=== PATIENT | female | born 1970 | race Caucasian/White ===

== ENCOUNTER 2020-08-27 12:25 | Outpatient (REF) | payer MEDICAID, SELFPAY | END 2020-08-27 12:26 | disposition home or self-care (01) | LOC: HO.LAB 12:25 | PROVIDERS: Visit Provider Internal Medicine | DX: Z20.828 Contact with and (suspected) exposure to other viral communicable diseases (principal) | CPT/HCPCS: 87635 ==

== ENCOUNTER 2020-10-30 12:50 | Outpatient (REF) | payer MEDICAID, SELFPAY ==
--- NOTE | 2020-10-30 | MM_ITS ---
EXAMINATION: MM DIAGNOSTIC DIGITAL BREAST TOMOSYNTHESIS, BILATERAL CLINICAL INFORMATION: Due for yearly. One-year follow-up small group of probable benign calcifications posterior upper outer right breast. History left benign breast biopsy 2011, fibroadenoma. The lifetime risk of breast cancer based on the Tyrer-Cuzick Model is 12%. COMPARISON: Mammography: 04/03/2020, 10/03/2019 (BI-RADS 3, new group), 03/28/2019, 09/27/2018, 03/23/2018, 09/21/2017, 09/14/2017 TECHNIQUE: Digital breast tomosynthesis is performed in both the craniocaudal and mediolateral oblique views along with computer-aided detection (CAD). Synthesized 2D images are generated from the tomosynthesis. Additional exaggerated right CC view is performed along with magnification right CC and magnification right ML views. FINDINGS: There are scattered areas of fibroglandular density (ACR BI-RADS breast composition Category b). Parenchymal pattern is similar to prior exams. There is a chronic macrolobulated mass upper outer left breast with central biopsy clip marker and benign coarse calcification consistent with the known fibroadenoma. Neither breast shows interval mass or architectural abnormality or interval abnormal calcifications. The right breast has scattered calcifications central and anterior upper outer quadrant similar to prior study. The small group of calcifications posterior upper outer right breast for follow-up are stable. They will be reassessed again at next bilateral annual mammography to conclude surveillance, due in 12 months. Results are provided to the patient at time of visit by the technologist. MM/MM tomosynthesis diagnostic BI IMPRESSION: 1. There are no significant changes from prior study. 2. Right breast calcifications for follow up are stable and benign appearing. ASSESSMENT: BI-RADS 3: Probably Benign RECOMMENDATION: Diagnostic mammography at time of next annual exam, due in 12 months. This patient's information was entered into a reminder system with a target due date for their next mammogram.
== END 2020-10-30 12:51 | disposition home or self-care (01) ==
LOC: HO.MAMMO 12:50
PROVIDERS: PCP Family Medicine; Visit Provider Family Medicine
DX: R92.1 Mammographic calcification found on diagnostic imaging of breast (principal)
CPT/HCPCS: 77062; 77066

== ENCOUNTER 2021-09-24 08:58 | Emergency (ER) | payer MEDICARE, MEDICAID, SELFPAY ==
--- NOTE | ~2021-09-24 | CT_ITS ---
EXAMINATION: CT ABDOMEN AND PELVIS WITH CONTRAST CLINICAL INFORMATION: Upper abdominal pain with nausea. COMPARISON: CT abdomen and pelvis noncontrast 06/02/2018, ultrasound abdomen 09/24/2021; 3-D digital breast tomosynthesis 10/30/2020. TECHNIQUE: Multidetector volumetric images were obtained from the superior aspect of the liver through the pubic symphysis following administration 85 mL of Omnipaque 350 intravenous contrast. Sagittal and coronal reformatted images were obtained on the technologist's workstation. Oral contrast: No This CT examination was performed using dose optimization techniques as appropriate, variously including the following: *Automated exposure control *Adjustment of mA and/or kV according to patient size (this includes techniques or standardized protocols for targeted exams where dose is matched to indication/reason for exam; i.e. extremities or head) *Use of iterative reconstruction technique DLP: 661 mGy-cm FINDINGS: LUNG BASES: The visualized lung bases are unremarkable. There is a known fibroadenoma left breast with biopsy clip marker, similar to prior mammography. LIVER, GALLBLADDER, AND BILIARY TREE: The liver is normal in size, shape, and attenuation. No focal hepatic lesion or biliary ductal dilatation is present. The gallbladder is unremarkable with no evidence of radiopaque gallstones, gallbladder wall thickening, or obvious pericholecystic inflammatory changes. PANCREAS: Unremarkable. SPLEEN: Unremarkable. ADRENAL GLANDS: Right adrenal normal. There is a stable solid nodule left adrenal under 1 cm (31 HU attenuation on prior noncontrast CT and 85 HU on current exam with contrast). No additional imaging follow-up recommended. KIDNEYS AND URETERS: The kidneys are normal in size and enhance symmetrically. There is no hydronephrosis, hydroureter, calculi, or perinephric stranding. There is incidental 0.8 cm cyst medial mid right kidney. No additional imaging follow-up required. BLADDER: Unremarkable. GASTROINTESTINAL TRACT: There is no bowel obstruction or focal inflammatory changes in the bowel or mesentery. The appendix is normal. There are fluid-filled loops of small bowel of normal caliber. No pneumatosis or free air. No ascites or fluid collection. ABDOMINAL WALL: Small fat-containing umbilical hernia under 3 cm. LYMPH NODES: No lymphadenopathy. VASCULAR: Unremarkable. PELVIC VISCERA: Unremarkable. OSSEOUS STRUCTURES: Unremarkable. CT/CT abdomen pelvis w con IMPRESSION: 1. Scattered fluid-filled small bowel of normal caliber. No wall thickening or obstruction. Normal appendix. 2. No cholelithiasis or ductal dilatation. No hydronephrosis or perinephric stranding. 3. No hydronephrosis or calculi.
--- NOTE | ~2021-09-24 | US_ITS ---
EXAMINATION: US ABDOMEN LIMITED CLINICAL INFORMATION: Epigastric pain with nausea. COMPARISON: None TECHNIQUE: Real-time imaging of the right upper quadrant abdominal viscera. Case discussed with research and development researcher. FINDINGS: PANCREAS: Portions of the pancreatic head and neck which are visualized appear normal in caliber. There is no pancreatic ductal distention or retroperitoneal effusion in the visualized area. The body and tail are obscured by bowel gas and not imaged. LIVER: The liver is normal in size and smooth in contour. The parenchyma is homogeneous, perhaps slightly increased which may suggest mild hepatic steatosis. There is no focal hepatic parenchymal lesion. No intrahepatic biliary ductal dilatation. Color Doppler shows portal flow towards the liver. GALLBLADDER: There is no gallstone or sludge or gallbladder wall thickening. On one image, there is suggestion of a tiny polyp proximal gallbladder near the neck under 4 mm, but finding could not be validated on additional imaging. There is no pericholecystic fluid. Negative sonographic Sears's sign. COMMON BILE DUCT: Normal in caliber measuring 0.3 cm in diameter. RIGHT KIDNEY: Normal. No hydronephrosis. No renal calculi or focal parenchymal lesions. The kidney measures 11.0 cm in maximum dimension. FREE FLUID: None. US/US abdomen limited IMPRESSION: 1. Suspect tiny gallbladder polyp. No stone, gallbladder wall thickening, or ductal dilatation. 2. No right hydronephrosis.
[2021-09-24 09:02] VITALS: BP 153/71; PULSE 60; RESP 18; TEMP 36.6; O2SAT 99; BMI 27.1
[2021-09-24 09:33] LABS: Hematocrit 36.6 % (37.0-47.0); Hemoglobin 12.1 g/dl (12.0-16.0); Mean Corpuscular HGB Conc 33.1 g/dl (31.0-35.0); Mean Corpuscular Hemoglobin 31.7 pg (27.0-33.0); Mean Corpuscular Volume 95.8 fL (80.0-98.0); Mean Platelet Volume 9.6 fL (9.4-12.3); Platelet Count 297 X10*3/uL (160-400); Red Blood Count 3.82 X10*6/uL (4.20-5.50); Red Cell Distribution Width 12.1 % (11.0-16.0); White Blood Count 10.6 X10*3/uL (4.8-10.8)
[2021-09-24] MEDS: ondansetron HCL 4 MG/2 ML VIAL IVPUSH (09:37)
[2021-09-24] MEDS: Ketorolac Tromethamine 15 MG/ML VIAL 30 MG IVPUSH (09:48)
[2021-09-24 09:52] LABS: Alanine Aminotransferase 55 U/L (0-31); Albumin Level 4.2 g/dL (3.5-5.0); Alkaline Phosphatase 78 U/L (39-117); Anion Gap 12 (12-20); Aspartate Amino Transferase 32 U/L (5-31); Bilirubin Direct 0.2 mg/dL (0.0-0.5); Bilirubin Total 0.3 mg/dL (0.0-1.0); Blood Urea Nitrogen 19 mg/dL (9-16); Calcium 8.9 mg/dL (8.4-10.2); Carbon Dioxide 21 mmol/L (22-29); Chloride 109 mmol/L (96-108); Creatinine Clr Calc Pharmacy 99.4; Estimated Glomerular Filt Rate > 60; Glucose Random 114 mg/dL (60-115); Lipase 74 U/L (8-78); Potassium 4.2 mmol/L (3.3-5.1); Sodium 138 mmol/L (135-145); Total Protein 7.3 g/dL (6.5-8.0)
--- NOTE | 2021-09-24 10:07 | ED.ABDPAIN ---
HPI - Abdominal Pain General Chief Complaint: Abdominal Pain Stated Complaint: abd pain Time Seen by Provider: 09/24/21 09:13 Source: patient Mode of arrival: ambulatory Limitations: language barrier (Wolof-speaking) History of Present Illness HPI narrative: 51-year-old female with a past medical history of hypertension presenting to the ED with complaints of epigastric abdominal pain with associated nausea since this morning at 06:00. Reports that she has had this pain in the past although it has subsided on its own. She denies any fevers, chills, chest pain or shortness of breath, rashes, vomiting, radiation of the abdominal pain, back pain, dysuria, hematuria, abnormal vaginal discharge, recent travel, sick contacts, possible bad food exposure, foreign travel, recent antibiotic use, recent procedure/surgery, recent injury or any other symptoms complaints or concerns at this time. MD elicited complaint: abdominal pain Pertinent past history: none Onset (ago): hour(s) (Prior to arrival) Pain Consistency: constant Location: epigastric Severity: moderate Quality: aching Radiation: none Migration to: no migration Exacerbating factors: other (Palpation) Relieving factors: nothing Associated symptoms: nausea Related Data Previous Rx's Medication Instructions Recorded naproxen 500 mg tablet 500 mg PO BID PRN #14 tab 09/24/21 ondansetron HCl 4 mg tablet 4 mg PO Q8H PRN #14 tab 09/24/21 (Zofran) Allergies Allergy/AdvReac Type Severity Reaction Status Date / Time No Known Allergies Allergy Unverified 07/18/20 15:49 none Allergy Unknown Uncoded 03/22/19 00:00 Review of Systems Review of Systems Constitutional : No Weight loss, No Fever, No Chills, No Night Sweats, No Fatigue, NoMalaise ENT/Mouth: No ear pain, No sore throat, No Difficulty swallowing Cardiovascular : No Chest Pain, No SOB, No Dyspnea on Exertion, No Orthopnea, NoEdema, No Palpitations Respiratory : No Cough, No Sputum, No Wheezing, No Dyspnea Gastrointestinal : + Nausea, No Vomiting, + abdominal pain, No Diarrhea, No blood streaked emesis, No coffee-ground emesis, No gross hematemesis, No blood streak stool, No gross hematochezia, No Melena Genitourinary : No irregular bleeding, No Dysuria, No Urinary Frequency, No Hematuria,No Urinary Incontinence, No Urgency, No Flank Pain Musculoskeletal : No joint pain, No Myalgias, No Joint Swelling Skin : No Skin Lesions, No rash Neuro : No Weakness, No Numbness, No Paresthesias, No Loss of Consciousness, NoDizziness, No Headache Psych : No Social Issues, Heme/Lymph: No Bruising, No Bleeding,No Lymphadenopathy Endocrine : No Polyuria, No Polydipsia, No Temperature Intolerance Yes all other systems are reviewed and are negative Physical Exam Vital Signs: Vital Signs: Last Vital Signs Temp 97.8 F 09/24/21 09:02 Pulse 60 09/24/21 09:02 Resp 18 09/24/21 09:02 BP 153/71 H 09/24/21 09:02 Pulse Ox 99 09/24/21 09:02 Body Mass Index 27.1 vital signs have been reviewed as normal and appeared to be correct. Blood pressure 153/71 Heart rate normal. Respiration rate normal. Temperature normal. Oxygen saturation normal. Appearance: Alert. Oriented X3. No acute distress. Head: Normal external exam. Normocephalic. Eyes: PERRLA. EOMI. Conjunctiva and sclera normal. Eyelids normal. ENT: Pharynx normal. Uvula midline. Moist mucous membranes. Neck: Normal inspection. Neck supple. FROM. No adenopathy. No meningeal signs. CVS: Normal heart rate and rhythm. Heart sound normal. No murmurs noted. Pulses normal throughout. Respiratory: No respiratory distress. Painless inspiration. Breath sounds normal. No wheezes/rales/rhonchi noted. Chest nontender. No accessory muscle usage noted or decreased air movement noted. Abdomen: Soft and tenderness palpation to epigastric area with guarding. Nondistended. No rigidity. Bowel sounds normal in all 4 quadrants. No distention noted. No organomegaly noted. No visible injury noted. No rebound tenderness. Negative Rovsing sign. Negative obturator's sign. Negative psoas sign. Negative Sears sign. Back: No CVA tenderness. Full range of motion noted. Skin: Skin warm and dry. Normal skin color. Normal skin turgor. No rashes/lesions/lacerations noted. Extremities: Extremities exhibit normal range of motion. Extremities nontender. Neuro: Oriented X 3. No motor deficit. No sensory deficit. Reflexes normal. Normal steady gait. Course Course Course Narrative: 9:30am - 51-year-old female with a past medical history of hypertension presenting to the ED with complaints of epigastric abdominal pain with associated nausea since this morning at 06:00. Reports that she has had this pain in the past although it has subsided on its own. Plan: Labs, UA, abdominal ultrasound of the epigastric area. Provide 4 mg of Zofran and 30 mg of Toradol and re-evaluate. Reevaluation(s) Reevaluation #1: - labs obtained and mild elevation in AST/ALT at 32/55 otherwise all other labs are within normal limits. Abdominal ultrasound revealed a tiny gallbladder polyp otherwise no other acute processes. CT scan abdomen pelvis revealed chronic changes no acute processes. Therefore at this time will DC home with symptomatic treatment instructions return if any new or worsening symptoms to follow up with primary care provider. Patient understands agrees with this plan. Time: 12:46 MDM - Abdominal Pain Medical Records Attestation: I reviewed the patient's medical records. Lab Data Attestation: I reviewed the patient's lab results. Result diagrams: 09/24/21 09:25 09/24/21 09:25 Labs: Lab Results 09/24/21 09/24/21 Range/Units 09:25 09:25 WBC 10.6 (4.8-10.8) X10*3/uL RBC 3.82 L (4.20-5.50) X10*6/uL Hgb 12.1 (12.0-16.0) g/dl Hct 36.6 L (37.0-47.0) % MCV 95.8 (80.0-98.0) fL MCH 31.7 (27.0-33.0) pg MCHC 33.1 (31.0-35.0) g/dl RDW 12.1 (11.0-16.0) % Plt Count 297 (160-400) X10*3/uL MPV 9.6 (9.4-12.3) fL Absolute Nucleated RBC 0.000 (0.0-0.012) X10*3/uL Nucleated RBC % (auto) 0.0 (0.0-0.2) /100WBC Sodium 138 (135-145) mmol/L Potassium 4.2 (3.3-5.1) mmol/L Chloride 109 H (96-108) mmol/L Carbon Dioxide 21 L (22-29) mmol/L Anion Gap 12 (12-20) BUN 19 H (9-16) mg/dL Creatinine 0.64 (0.5-1.4) mg/dL Estim Creat Clear Calc 99.4 Estimated GFR > 60 Random Glucose 114 (60-115) mg/dL Calcium 8.9 (8.4-10.2) mg/dL Total Bilirubin 0.3 (0.0-1.0) mg/dL Direct Bilirubin 0.2 (0.0-0.5) mg/dL AST 32 H (5-31) U/L ALT 55 H (0-31) U/L Alkaline Phosphatase 78 (39-117) U/L Total Creatine Kinase 110 (26-140) U/L Total Protein 7.3 (6.5-8.0) g/dL Albumin 4.2 (3.5-5.0) g/dL Lipase 74 (8-78) U/L Imaging Data Abdominal ultrasound: Attestation: I personally reviewed and interpreted this imaging study as follows: Radiologist's impression: FINDINGS: PANCREAS: Portions of the pancreatic head and neck which are visualized appear normal in caliber. There is no pancreatic ductal distention or retroperitoneal effusion in the visualized area. The body and tail are obscured by bowel gas and not imaged. LIVER: The liver is normal in size and smooth in contour. The parenchyma is homogeneous, perhaps slightly increased which may suggest mild hepatic steatosis. There is no focal hepatic parenchymal lesion. No intrahepatic biliary ductal dilatation. Color Doppler shows portal flow towards the liver. GALLBLADDER: There is no gallstone or sludge or gallbladder wall thickening. On one image, there is suggestion of a tiny polyp proximal gallbladder near the neck under 4 mm, but finding could not be validated on additional imaging. There is no pericholecystic fluid. Negative sonographic Sears's sign. COMMON BILE DUCT: Normal in caliber measuring 0.3 cm in diameter. RIGHT KIDNEY: Normal. No hydronephrosis. No renal calculi or focal parenchymal lesions. The kidney measures 11.0 cm in maximum dimension. FREE FLUID: None. US/US abdomen limited IMPRESSION: ? 1. Suspect tiny gallbladder polyp. No stone, gallbladder wall thickening, or ductal dilatation. 2. No right hydronephrosis. CT scan abdomen pelvis with IV contrast: Attestation: I personally reviewed and interpreted this imaging study as follows: Radiologist's impression: FINDINGS: LUNG BASES: The visualized lung bases are unremarkable. There is a known fibroadenoma left breast with biopsy clip marker, similar to prior mammography. LIVER, GALLBLADDER, AND BILIARY TREE: The liver is normal in size, shape, and attenuation. No focal hepatic lesion or biliary ductal dilatation is present. The gallbladder is unremarkable with no evidence of radiopaque gallstones, gallbladder wall thickening, or obvious pericholecystic inflammatory changes.? PANCREAS: Unremarkable.? SPLEEN: Unremarkable.? ADRENAL GLANDS: Right adrenal normal. There is a stable solid nodule left adrenal under 1 cm (31 HU attenuation on prior noncontrast CT and 85 HU on current exam with contrast). No additional imaging follow-up recommended. KIDNEYS AND URETERS: The kidneys are normal in size and enhance symmetrically. There is no hydronephrosis, hydroureter, calculi, or perinephric stranding. There is incidental 0.8 cm cyst medial mid right kidney. No additional imaging follow-up required.? BLADDER: Unremarkable.? GASTROINTESTINAL TRACT: There is no bowel obstruction or focal inflammatory changes in the bowel or mesentery. The appendix is normal. There are fluid-filled loops of small bowel of normal caliber. No pneumatosis or free air. No ascites or fluid collection.? ABDOMINAL WALL: Small fat-containing umbilical hernia under 3 cm.? LYMPH NODES: No lymphadenopathy. VASCULAR: Unremarkable. PELVIC VISCERA: Unremarkable.? OSSEOUS STRUCTURES: Unremarkable.? CT/CT abdomen pelvis w con IMPRESSION: ? 1. Scattered fluid-filled small bowel of normal caliber. No wall thickening or obstruction. Normal appendix. 2. No cholelithiasis or ductal dilatation. No hydronephrosis or perinephric stranding.? 3. No hydronephrosis or calculi. Discharge Plan Discharge Clinical Impression: Abdominal pain Patient Disposition: Home, Self-Care Instructions: Abdominal Pain (ED) Prescriptions: New naproxen 500 mg tablet 500 mg PO BID PRN (Reason: pain) Qty: 14 RF: 0 ondansetron HCl [Zofran] 4 mg tablet 4 mg PO Q8H PRN (Reason: nausea and vomiting) Qty: 14 RF: 0 Referrals: Alvina Mccartney MD [Primary Care Provider] - 2 days Print Language: Croatian PENDING SALE TO [facility] Past Medical History Attestation statement: The following information was validated with the patient. Medical History HTN (hypertension) Surgical History History of hysterectomy Family History Family History Father Diabetes Arthritis Hypertension Hypercholesteremia Mother Diabetes Hypertension Arthritis Son Asthma Son Asthma Heart problem Social History Social History Advance Directives: No Patient : No
[2021-09-24] MEDS: 0.9 % Sodium Chloride 1,000 ML 999 ML IVCONT (11:28)
[2021-09-24] MEDS: iohexoL 350 MG/ML 100 ML INFUS..BTL IV (11:39)
[2021-09-24 12:54] VITALS: BP 130/78; PULSE 60; RESP 16; O2SAT 97
== END 2021-09-24 13:03 | disposition home or self-care (01) ==
PROVIDERS: Physician Assistant Medical; Emergency Provider Emergency Medicine; PCP Family Medicine
DX: R10.13 Epigastric pain (principal); R11.0 Nausea; I10 Essential (primary) hypertension
CPT/HCPCS: 36415; 74177; 76705; 80048; 80076; 82550; 83690; 85027; 96361; 96374; 96375; 99284; J1885; J2405; Q9967

== ENCOUNTER 2021-11-06 14:54 | Outpatient (REF) | payer MEDICARE, MEDICAID, SELFPAY ==
--- NOTE | ~2021-11-06 | MM_ITS ---
EXAMINATION: MM DIAGNOSTIC DIGITAL BREAST TOMOSYNTHESIS, BILATERAL CLINICAL INFORMATION: Due for yearly. Follow-up small group probable benign calcifications posterior upper outer right breast. Prior history benign left breast biopsy 2012, fibroadenoma. The lifetime risk of breast cancer based on the Tyrer-Cuzick Model is 8%. COMPARISON: Mammography: 10/30/2020, 04/20/2020, 10/03/2019 (new group, BI-RADS 3), 03/28/2019, 09/27/2018, 03/23/2018 TECHNIQUE: Digital breast tomosynthesis is performed in both the craniocaudal and mediolateral oblique views along with computer-aided detection (CAD). Synthesized 2D images are generated from the tomosynthesis. Additional views are obtained: Exaggerated right CC, magnification right CC, magnification right ML. FINDINGS: There are scattered areas of fibroglandular density (ACR BI-RADS breast composition Category b). Left breast fibroadenoma with central biopsy clip marker again seen mid 3:00 position. There are increased benign coarse calcifications predominantly peripherally oriented within the known fibroadenoma. Scattered calcifications right breast are stable. There are no increasing calcifications or interval pleomorphic types. Calcifications are now considered to be benign. Neither breast shows interval mass or architectural abnormality or developing density. The axilla and skin contours are unremarkable. Results are provided to the patient at time of visit by the technologist. MM/MM tomosynthesis diagnostic BI IMPRESSION: No significant changes from prior exams. ASSESSMENT: BI-RADS 2: Benign RECOMMENDATION: Routine annual mammography screening. This patient's information was entered into a reminder system with a target due date for their next mammogram.
== END 2021-11-06 14:55 | disposition home or self-care (01) ==
LOC: HO.MAMMO 14:54
PROVIDERS: Visit Provider Family Medicine
DX: R92.1 Mammographic calcification found on diagnostic imaging of breast (principal)
CPT/HCPCS: 77062; 77066

== ENCOUNTER → 2021-12-01 10:08 | Outpatient (BNVA) | payer MEDICARE, MEDICAID, SELFPAY | PROVIDERS: PCP Family Medicine; Referring Provider Family Medicine; Visit Provider Internal Medicine Gastroenterology | DX: K82.4 Cholesterolosis of gallbladder (principal); K58.9 Irritable bowel syndrome, unspecified | CPT/HCPCS: 99212 ==

== ENCOUNTER 2021-12-29 09:50 | Outpatient (REF) | payer MEDICARE, MEDICAID, SELFPAY ==
--- NOTE | ~2021-12-29 | US_ITS ---
EXAMINATION: US ABDOMEN COMPLETE CLINICAL INFORMATION: Cholesterolosis of the gallbladder. COMPARISON: Ultrasound abdomen limited 09/24/2021. CT abdomen and pelvis with contrast 09/24/2021. TECHNIQUE: Real-time imaging of the abdominal viscera. FINDINGS: PANCREAS: The visualized pancreas is normal in size and contour and echogenicity. No pancreatic ductal distention. Distal body and tail obscured by bowel gas and not completely imaged. ABDOMINAL AORTA: The proximal, mid, and distal segments are normal in caliber. INFERIOR VENA CAVA: Visualized portions are normal. LIVER: The liver is normal in size and smooth in contour. There is no focal hepatic parenchymal lesion or intrahepatic ductal dilatation. The parenchyma areas homogeneous, or borderline increased in echogenicity which may suggest mild hepatic steatosis. Color Doppler shows portal flow towards the liver. GALLBLADDER: There are at least 2 gallbladder polyps, the larger measures 4 mm in size. There is no gallbladder dilatation or wall thickening, dependent sludge, or pericholecystic inflammatory changes. Negative sonographic Sears's sign. COMMON BILE DUCT: Normal in caliber measuring 0.3 cm in diameter. RIGHT KIDNEY: Normal. No hydronephrosis. No renal calculi or focal parenchymal lesions. The kidney measures 11.4 cm in maximum dimension. LEFT KIDNEY: Normal. No hydronephrosis. No renal calculi or focal parenchymal lesions. The kidney measures 10.3 cm in maximum dimension. SPLEEN: Normal. The spleen measures 7.4 cm in maximum dimension. FREE FLUID: None. US/US abdomen complete IMPRESSION: 1. Gallbladder: At least 2 small polyps, the largest 0.4 cm. 2. No gallstone, dependent sludge, gallbladder wall thickening, or ductal dilatation.
== END 2021-12-29 09:51 | disposition home or self-care (01) ==
LOC: HO.US 09:50
PROVIDERS: PCP Family Medicine; Visit Provider Internal Medicine Gastroenterology
DX: K82.4 Cholesterolosis of gallbladder (principal)
CPT/HCPCS: 76700

== ENCOUNTER 2022-04-03 09:44 | Outpatient (REF) | payer OTHER, SELFPAY ==
[2022-04-04 15:19] LABS: H Pylori Breath Test Negative (Negative)
== END 2022-04-03 09:45 | disposition home or self-care (01) ==
LOC: HO.LNP 09:44
PROVIDERS: PCP Family Medicine; Referring Provider Family Medicine; Visit Provider Internal Medicine Gastroenterology
DX: Z01.818 Encounter for other preprocedural examination (principal); R10.13 Epigastric pain; K59.00 Constipation, unspecified
CPT/HCPCS: 83013; 99212

== ENCOUNTER 2022-10-01 15:39 | Emergency (ER) | payer OTHER, MEDICAID, SELFPAY ==
--- NOTE | ~2022-10-01 | CT_ITS ---
EXAMINATION: NONCONTRAST HEAD CT NONCONTRAST MAXILLOFACIAL CT NONCONTRAST CERVICAL SPINE CT INDICATION INFORMATION: Head and facial trauma, syncope. COMPARISON: No similar priors. TECHNIQUE: Separate noncontrast CT examinations of the head, maxillofacial bones, and cervical spine were performed. Coronal and sagittal images were created for each examination at the technologist workstation. This CT examination was performed using dose optimization techniques as appropriate, variously including the following: *Automated exposure control *Adjustment of mA and/or kV according to patient size (this includes techniques or standardized protocols for targeted exams where dose is matched to indication/reason for exam; i.e. extremities or head) *Use of iterative reconstruction technique DLP: 728 mGy-cm FINDINGS: Head: There is no evidence of acute intracranial hemorrhage or territorial infarction. No abnormal mass effect or midline shift is seen. Rubio to white matter differentiation is well preserved. No extra-axial fluid collections are identified. No hydrocephalus. No significant volume loss. There is no abnormal attenuation within the brain parenchyma. No acute soft tissue abnormality. No calvarial fracture. The mastoid air cells are well aerated. Maxillofacial: No acute maxillofacial fractures are seen. Small mucous retention cyst in the right maxillary sinus. No air-fluid levels. The mastoids and middle ear cavities are clear. The nasal septum is severe to the right. The mandibular heads are well-seated in the condylar fossa. The orbits demonstrate a normal appearance bilaterally. The globes are intact, and there are no suspicious findings to suggest retrobulbar hemorrhage. Cervical spine: Straightening of the cervical lordosis with otherwise maintained anatomic alignment. The atlantoaxial and atlantooccipital articulations are intact. Vertebral body heights are maintained. There is multilevel intervertebral disc space narrowing with endplate osteophyte formation and facet arthropathy. Prominent anterior osteophyte at the level of C5-C6. No evidence of acute fracture. No prevertebral soft tissue swelling. Visualized portions of the lung apices are unremarkable. The thyroid gland is unremarkable. CT/CT cervical spine wo IV con IMPRESSION: 1. No acute intracranial abnormalities. 2. No acute maxillofacial fractures. 3. No acute cervical fractures or malalignment.
--- NOTE | ~2022-10-01 | XR_ITS ---
EXAMINATION: XR CHEST CLINICAL INFORMATION: Syncope COMPARISON: Chest x-ray 06/17/2019 TECHNIQUE: Frontal view of the chest was obtained. FINDINGS: The lungs are clear. No airspace consolidation, pleural effusion, or pneumothorax. The cardiomediastinal silhouette is within normal limits. No acute osseous injury. XR/XR chest 1V IMPRESSION: No acute pulmonary process.
[2022-10-01 16:02] VITALS: BP 124/72; BP 144/89; PULSE 76; PULSE 80; RESP 20; TEMP 37.2; O2SAT 94; O2SAT 98; BMI 26.9
--- NOTE | 2022-10-01 16:08 | ED.SYNCOPE ---
HPI - Syncope General Chief Complaint: Syncope <Mary George NP - Last Filed: 10/01/22 23:51> Stated Complaint: Syncopal Episode/Fall <Mary George NP - Last Filed: 10/01/22 23:51> Time Seen by Provider: 10/01/22 16:08 <Mary George NP - Last Filed: 10/01/22 23:51> Source: patient and EMS <Mary George NP - Last Filed: 10/01/22 23:51> Mode of arrival: EMS <Mary George NP - Last Filed: 10/01/22 23:51> Limitations: language barrier <Mary George NP - Last Filed: 10/01/22 23:51> History of Present Illness HPI narrative: 52-year-old female presents via EMS for syncopal episode. Patient was standing in line [place] the post office, when she bent over she had a syncopal episode, landed on her face and has an abrasion to her left lower lip. Patient is in a C-collar, and is complaining of neck and headache. <Mary George NP - Last Filed: 10/01/22 23:51> MD complaint: loss of consciousness and felt faint <Mary George NP - Last Filed: 10/01/22 23:51> Onset (ago): hour(s) (However I have all) <Mary George NP - Last Filed: 10/01/22 23:51> -: minutes(s) <Mary George NP - Last Filed: 10/01/22 23:51> Prodromal symptoms: lightheaded <Mary George NP - Last Filed: 10/01/22 23:51> Witnessed: Yes - by Bystander <Mary George NP - Last Filed: 10/01/22 23:51> Injuries sustained associated with event: neck, face and head <Mary George NP - Last Filed: 10/01/22 23:51> Current symptoms: headache <Mary George NP - Last Filed: 10/01/22 23:51> Related Data Home Medications: Home Medications Medication Instructions Recorded Confirmed amlodipine 10 mg tablet 10 mg PO QAM 04/03/22 blood pressure test kit-large #1 ea 04/03/22 buspirone 15 mg tablet 30 mg PO 04/03/22 cholecalciferol (vitamin D3) 25 25 mcg PO QAM 04/03/22 mcg (1,000 unit) capsule (Vitamin D3) duloxetine 60 mg capsule,delayed 60 mg PO BEDTIME 04/03/22 release ergocalciferol (vitamin D2) 1,250 1,250 mcg PO QWEEK 04/03/22 mcg (50,000 unit) capsule hydrochlorothiazide 25 mg tablet 25 mg PO QAM 04/03/22 loratadine 10 mg tablet 10 mg PO QAM allergies 04/03/22 zolpidem 10 mg tablet 10 mg PO BEDTIME 04/03/22 Previous Rx's Medication Instructions Recorded naproxen 500 mg tablet 500 mg PO BID PRN pain #14 tabs 09/24/21 ondansetron HCl 4 mg tablet 4 mg PO Q8H PRN nausea and 09/24/21 (Zofran) vomiting #14 tabs sucralfate 100 mg/mL oral 10 ml PO BID #1,000 mL 12/01/21 suspension linaclotide 145 mcg capsule 145 mcg PO DAILY #90 caps 04/03/22 sodium,potassium,mag sulfates 17.5 See Rx Instructions PO .COMPLEX 04/03/22 gram-3.13 gram-1.6 gram oral soln #354 mL (Suprep Bowel Prep Kit) famotidine 20 mg tablet 20 mg PO BID #90 tabs 08/24/22 <Mary George NP - Last Filed: 10/01/22 23:51> Allergies/Adverse Reactions: Allergies Allergy/AdvReac Type Severity Reaction Status Date / Time No Known Allergies Allergy Unverified 04/03/22 10:11 <Mary George NP - Last Filed: 10/01/22 23:51> Review of Systems Review of Systems: Constitutional: Positive syncope, No Fever, No Chills ENT/Mouth: No Ear Pain, No Hoarseness, No sore throat Eyes: No Eye Pain, No Swelling, No Redness, No Foreign Body Cardiovascular: No Chest Pain, No SOB Respiratory: No Cough, No Dyspnea Gastrointestinal: No Nausea, No Vomiting, No Diarrhea, No abdominal Pain Genitourinary: No Dysuria, No Hematuria Musculoskeletal: positive jaw and neck pain, No Myalgias, No Joint Swelling Skin: Positive lip laceration, No Skin lacerations, No rash Neuro: No Weakness, No Numbness, No Paresthesias, No Loss of Consciousness, No Dizziness, No Headache Psych: No Anxiety/Panic, No Depression Heme/Lymph: no easy bruising, no Lymphadenopathy Endocrine: No Polyuria, No Polydipsia <Mary George NP - Last Filed: 10/01/22 23:51> Yes all other systems are reviewed and are negative <Mary George NP - Last Filed: 10/01/22 23:51> [facility] Past Medical History Attestation statement: The following information was validated with the patient. <Mary George NP - Last Filed: 10/01/22 23:51> Source: old records reviewed <Mary George NP - Last Filed: 10/01/22 23:51> Medical History: Medical History HTN (hypertension) <Mary George NP - Last Filed: 10/01/22 23:51> Surgical History: Surgical History History of esophagogastroduodenoscopy (EGD) History of hysterectomy Hx of colonoscopy <Mary George NP - Last Filed: 10/01/22 23:51> Family History Family History: Family History Father Diabetes Arthritis Hypertension Hypercholesteremia Mother Diabetes Hypertension Arthritis Son Asthma Son Asthma Heart problem <Mary George NP - Last Filed: 10/01/22 23:51> Social History Social History: Social History Advance Directives: No Advance Directives Information Provided: No <Mary George NP - Last Filed: 10/01/22 23:51> Physical Exam Vital Signs: Vital Signs: Last Vital Signs Temp 98.9 F 10/01/22 16:02 Pulse 76 10/01/22 16:02 Resp 20 10/01/22 16:02 BP 144/89 H 10/01/22 16:02 Pulse Ox 98 10/01/22 16:17 O2 Del Method 10/01/22 16:17 BMI result Body Mass Index 26.9 <Mary George NP - Last Filed: 10/01/22 23:51> Vital Signs: Last Vital Signs Temp 98.9 F 10/01/22 16:02 Pulse 76 10/01/22 16:02 Resp 20 10/01/22 16:02 BP 144/89 H 10/01/22 16:02 Pulse Ox 98 10/01/22 16:17 O2 Del Method 10/01/22 16:17 BMI result Body Mass Index 26.9 <Davion Mercado MD - Last Filed: 10/02/22 02:39> Appearance: Alert. Oriented X3. Moderate distress. Eyes: Pupils equal, round and reactive to light. EOMI. Sclera nonicteric ENT: Pharynx normal. Abrasion to the right lower lip. Neck: Normal inspection. Neck supple. No vertebral tenderness or step-offs. No nuchal rigidity. CVS: Normal heart rate and rhythm. Pulses normal. No chest wall tenderness to palpation or crepitus. Respiratory: No respiratory distress. Lung sounds clear to auscultation all lobes. Abdomen: Soft and nontender. Skin: Skin warm and dry. Normal skin color. Normal skin turgor. Extremities: No lower extremity edema. Moves all extremities against resistance. Neuro: No motor deficit. No sensory deficit. Cranial nerves 2-12 intact. <Mary George NP - Last Filed: 10/01/22 23:51> Course Course Course Narrative: 52-year-old female presents via EMS for syncopal episode with head strike. She was in line at the post office, bent over felt dizzy and then passed out. Patient is in a C-collar. Patient is alert oriented x4, glass cup coma Scale 15, NIH stroke scale 0. Patient does have an abrasion to her lower lip. Patient is complaining of neck pain and headache. States that she became dizzy before she lost consciousness. She was in line at the post office, bent over felt dizzy and then passed out. 18:08 CT head neck and facial are negative for acute findings. C-collar removed at this time. 18:15 labs are unremarkable. BUN mildly elevated at 19, which is better than patient's prior values. Troponin is less than 3.5, EKG is normal sinus. D-dimer negative. Low likelihood of PE, ACS. COVID influenza negative. Will have patient follow-up with her primary care physician for syncopal episode. I did discuss this plan with patient, who agrees with this plan. Verbalized understanding of signs and symptoms indicating need for emergent intervention. senior systems administrator utilized for all corresponded. Will translate utilized for discharge instructions. <Mayr George NP - Last Filed: 10/01/22 23:51> Medications Administered Discontinued Medications Generic Name Dose Route Start Last Admin Trade Name Freq PRN Reason Stop Dose Admin Diphtheria/Tetanus/Acell Pertussis 0.5 ml 10/01/22 16:14 10/01/22 18:15 Diphth,Pertus(Acell),Tet Adult 0.5 Ml Syringe IM 10/01/22 16:15 Not Given .ONCE ONE <Mary George NP - Last Filed: 10/01/22 23:51> Medications Administered Discontinued Medications Generic Name Dose Route Start Last Admin Trade Name Freq PRN Reason Stop Dose Admin Diphtheria/Tetanus/Acell Pertussis 0.5 ml 10/01/22 16:14 10/01/22 18:15 Diphth,Pertus(Acell),Tet Adult 0.5 Ml Syringe IM 10/01/22 16:15 Not Given .ONCE ONE <Davion Mercado MD - Last Filed: 10/02/22 02:39> MDM - Syncope Differential Diagnosis Differential diagnosis: Likely vasovagal syncope, subarachnoid hemorrhage, pulmonary embolism and dehydration <Mary George NP - Last Filed: 10/01/22 23:51> Medical Records Attestation: I reviewed the patient's medical records. <Mary George NP - Last Filed: 10/01/22 23:51> Lab Data Attestation: I reviewed the patient's lab results. <Mary George NP - Last Filed: 10/01/22 23:51> Result diagrams: : 10/01/22 17:53 10/01/22 17:53 <Mary George NP - Last Filed: 10/01/22 23:51> Labs: Lab Results 12/11/2210/01/22 10/01/22 Range/Units 16:45 17:53 17:53 WBC 6.9 (4.8-10.8) X10*3/uL RBC 3.80 L (4.20-5.50) X10*6/uL Hgb 12.2 (12.0-16.0) g/dl Hct 36.4 L (37.0-47.0) % MCV 95.8 (80.0-98.0) fL MCH 32.1 (27.0-33.0) pg MCHC 33.5 (31.0-35.0) g/dl RDW 11.7 (11.0-16.0) % Plt Count 273 (160-400) X10*3/uL MPV 10.1 (9.4-12.3) fL Immature Gran % (Auto) 0.4 (0.0-0.4) % Neut % (Auto) 69.6 (45-73) % Lymph % (Auto) 17.6 L (20-40) % [place] % (Auto) 10.7 (2-11) % Eos % (Auto) 1.3 (0-4) % Baso % (Auto) 0.4 (0-2) % Lymph # (Auto) 1.2 (1.2-4.9) X10*3/uL [place] # (Auto) 0.7 (0.1-1.2) X10*3/uL Eos # (Auto) 0.1 (0.0-0.4) X10*3/uL Baso # (Auto) 0.0 (0.0-0.2) X10*3/uL Abs Immat Gran (auto) 0.03 (0.00-0.03) X10*3/uL Absolute Neuts (auto) 4.8 (2.0-8.3) x10*3/uL Absolute Nucleated RBC 0.000 (0.0-0.012) X10*3/uL Nucleated RBC % (auto) 0.0 (0.0-0.2) /100WBC PT (10.0-13.1) SEC INR (0.9-1.1) APTT 27.6 (26.0-36.4) SEC D-Dimer High Sensitivty NG/ML Sodium (135-145) mmol/L Potassium (3.3-5.1) mmol/L Chloride (96-108) mmol/L Carbon Dioxide (22-29) mmol/L Anion Gap (12-20) BUN (9-16) mg/dL Creatinine (0.5-1.4) mg/dL Estim Creat Clear Calc Estimated GFR POC Glucose 114 (60-115) mg/dL Random Glucose (60-115) mg/dL Lactic Acid (0.5-2.0) mmol/L Calcium (8.4-10.2) mg/dL Magnesium (1.6-2.6) mg/dL Total Bilirubin (0.0-1.0) mg/dL Direct Bilirubin (0.0-0.5) mg/dL AST (5-31) U/L ALT (0-31) U/L Alkaline Phosphatase (39-117) U/L Troponin I High Sens (<3.5-17.0) ng/L Total Protein (6.5-8.0) g/dL Albumin (3.5-5.0) g/dL Lipase (8-78) U/L Influenza Type A (PCR) (Negative) Influenza Type B (PCR) (Negative) RSV RNA Qual (PCR) (Negative) SARS-CoV-2 RNA (RT-PCR) (Negative) 10/01/22 10/01/22 10/01/22 Range/Units 17:53 17:53 17:53 WBC (4.8-10.8) X10*3/uL RBC (4.20-5.50) X10*6/uL Hgb (12.0-16.0) g/dl Hct (37.0-47.0) % MCV (80.0-98.0) fL MCH (27.0-33.0) pg MCHC (31.0-35.0) g/dl RDW (11.0-16.0) % Plt Count (160-400) X10*3/uL MPV (9.4-12.3) fL Immature Gran % (Auto) (0.0-0.4) % Neut % (Auto) (45-73) % Lymph % (Auto) (20-40) % [place] % (Auto) (2-11) % Eos % (Auto) (0-4) % Baso % (Auto) (0-2) % Lymph # (Auto) (1.2-4.9) X10*3/uL [place] # (Auto) (0.1-1.2) X10*3/uL Eos # (Auto) (0.0-0.4) X10*3/uL Baso # (Auto) (0.0-0.2) X10*3/uL Abs Immat Gran (auto) (0.00-0.03) X10*3/uL Absolute Neuts (auto) (2.0-8.3) x10*3/uL Absolute Nucleated RBC (0.0-0.012) X10*3/uL Nucleated RBC % (auto) (0.0-0.2) /100WBC PT 11.6 (10.0-13.1) SEC INR 1.0 (0.9-1.1) APTT (26.0-36.4) SEC D-Dimer High Sensitivty NG/ML Sodium 137 (135-145) mmol/L Potassium 3.9 (3.3-5.1) mmol/L Chloride 106 (96-108) mmol/L Carbon Dioxide 25 (22-29) mmol/L Anion Gap 10 L (12-20) BUN 19 H (9-16) mg/dL Creatinine 0.70 (0.5-1.4) mg/dL Estim Creat Clear Calc 89.5 Estimated GFR > 60 POC Glucose (60-115) mg/dL Random Glucose 97 (60-115) mg/dL Lactic Acid (0.5-2.0) mmol/L Calcium 9.3 (8.4-10.2) mg/dL Magnesium 2.0 (1.6-2.6) mg/dL Total Bilirubin 0.2 (0.0-1.0) mg/dL Direct Bilirubin < 0.2 (0.0-0.5) mg/dL AST 26 (5-31) U/L ALT 28 (0-31) U/L Alkaline Phosphatase 80 (39-117) U/L Troponin I High Sens < 3.5 (<3.5-17.0) ng/L Total Protein 7.2 (6.5-8.0) g/dL Albumin 4.1 (3.5-5.0) g/dL Lipase 29 (8-78) U/L Influenza Type A (PCR) (Negative) Influenza Type B (PCR) (Negative) RSV RNA Qual (PCR) (Negative) SARS-CoV-2 RNA (RT-PCR) (Negative) 10/01/22 10/01/22 10/01/22 Range/Units 17:53 17:53 18:41 WBC (4.8-10.8) X10*3/uL RBC (4.20-5.50) X10*6/uL Hgb (12.0-16.0) g/dl Hct (37.0-47.0) % MCV (80.0-98.0) fL MCH (27.0-33.0) pg MCHC (31.0-35.0) g/dl RDW (11.0-16.0) % Plt Count (160-400) X10*3/uL MPV (9.4-12.3) fL Immature Gran % (Auto) (0.0-0.4) % Neut % (Auto) (45-73) % Lymph % (Auto) (20-40) % [place] % (Auto) (2-11) % Eos % (Auto) (0-4) % Baso % (Auto) (0-2) % Lymph # (Auto) (1.2-4.9) X10*3/uL [place] # (Auto) (0.1-1.2) X10*3/uL Eos # (Auto) (0.0-0.4) X10*3/uL Baso # (Auto) (0.0-0.2) X10*3/uL Abs Immat Gran (auto) (0.00-0.03) X10*3/uL Absolute Neuts (auto) (2.0-8.3) x10*3/uL Absolute Nucleated RBC (0.0-0.012) X10*3/uL Nucleated RBC % (auto) (0.0-0.2) /100WBC PT (10.0-13.1) SEC INR (0.9-1.1) APTT (26.0-36.4) SEC D-Dimer High Sensitivty < 150 NG/ML Sodium (135-145) mmol/L Potassium (3.3-5.1) mmol/L Chloride (96-108) mmol/L Carbon Dioxide (22-29) mmol/L Anion Gap (12-20) BUN (9-16) mg/dL Creatinine (0.5-1.4) mg/dL Estim Creat Clear Calc Estimated GFR POC Glucose (60-115) mg/dL Random Glucose (60-115) mg/dL Lactic Acid 0.5 (0.5-2.0) mmol/L Calcium (8.4-10.2) mg/dL Magnesium (1.6-2.6) mg/dL Total Bilirubin (0.0-1.0) mg/dL Direct Bilirubin (0.0-0.5) mg/dL AST (5-31) U/L ALT (0-31) U/L Alkaline Phosphatase (39-117) U/L Troponin I High Sens (<3.5-17.0) ng/L Total Protein (6.5-8.0) g/dL Albumin (3.5-5.0) g/dL Lipase (8-78) U/L Influenza Type A (PCR) NEGATIVE (Negative) Influenza Type B (PCR) NEGATIVE (Negative) RSV RNA Qual (PCR) NEGATIVE (Negative) SARS-CoV-2 RNA (RT-PCR) NEGATIVE (Negative) <Mary George NP - Last Filed: 10/01/22 23:51> Lab Results 10/01/22 10/01/22 10/01/22 Range/Units 16:45 17:53 17:53 WBC 6.9 (4.8-10.8) X10*3/uL RBC 3.80 L (4.20-5.50) X10*6/uL Hgb 12.2 (12.0-16.0) g/dl Hct 36.4 L (37.0-47.0) % MCV 95.8 (80.0-98.0) fL MCH 32.1 (27.0-33.0) pg MCHC 33.5 (31.0-35.0) g/dl RDW 11.7 (11.0-16.0) % Plt Count 273 (160-400) X10*3/uL MPV 10.1 (9.4-12.3) fL Immature Gran % (Auto) 0.4 (0.0-0.4) % Neut % (Auto) 69.6 (45-73) % Lymph % (Auto) 17.6 L (20-40) % [place] % (Auto) 10.7 (2-11) % Eos % (Auto) 1.3 (0-4) % Baso % (Auto) 0.4 (0-2) % Lymph # (Auto) 1.2 (1.2-4.9) X10*3/uL [place] # (Auto) 0.7 (0.1-1.2) X10*3/uL Eos # (Auto) 0.1 (0.0-0.4) X10*3/uL Baso # (Auto) 0.0 (0.0-0.2) X10*3/uL Abs Immat Gran (auto) 0.03 (0.00-0.03) X10*3/uL Absolute Neuts (auto) 4.8 (2.0-8.3) x10*3/uL Absolute Nucleated RBC 0.000 (0.0-0.012) X10*3/uL Nucleated RBC % (auto) 0.0 (0.0-0.2) /100WBC PT (10.0-13.1) SEC INR (0.9-1.1) APTT 27.6 (26.0-36.4) SEC D-Dimer High Sensitivty NG/ML Sodium (135-145) mmol/L Potassium (3.3-5.1) mmol/L Chloride (96-108) mmol/L Carbon Dioxide (22-29) mmol/L Anion Gap (12-20) BUN (9-16) mg/dL Creatinine (0.5-1.4) mg/dL Estim Creat Clear Calc Estimated GFR POC Glucose 114 (60-115) mg/dL Random Glucose (60-115) mg/dL Lactic Acid (0.5-2.0) mmol/L Calcium (8.4-10.2) mg/dL Magnesium (1.6-2.6) mg/dL Total Bilirubin (0.0-1.0) mg/dL Direct Bilirubin (0.0-0.5) mg/dL AST (5-31) U/L ALT (0-31) U/L Alkaline Phosphatase (39-117) U/L Troponin I High Sens (<3.5-17.0) ng/L Total Protein (6.5-8.0) g/dL Albumin (3.5-5.0) g/dL Lipase (8-78) U/L Influenza Type A (PCR) (Negative) Influenza Type B (PCR) (Negative) RSV RNA Qual (PCR) (Negative) SARS-CoV-2 RNA (RT-PCR) (Negative) 10/01/22 10/01/22 10/01/22 Range/Units 17:53 17:53 17:53 WBC (4.8-10.8) X10*3/uL RBC (4.20-5.50) X10*6/uL Hgb (12.0-16.0) g/dl Hct (37.0-47.0) % MCV (80.0-98.0) fL MCH (27.0-33.0) pg MCHC (31.0-35.0) g/dl RDW (11.0-16.0) % Plt Count (160-400) X10*3/uL MPV (9.4-12.3) fL Immature Gran % (Auto) (0.0-0.4) % Neut % (Auto) (45-73) % Lymph % (Auto) (20-40) % [place] % (Auto) (2-11) % Eos % (Auto) (0-4) % Baso % (Auto) (0-2) % Lymph # (Auto) (1.2-4.9) X10*3/uL [place] # (Auto) (0.1-1.2) X10*3/uL Eos # (Auto) (0.0-0.4) X10*3/uL Baso # (Auto) (0.0-0.2) X10*3/uL Abs Immat Gran (auto) (0.00-0.03) X10*3/uL Absolute Neuts (auto) (2.0-8.3) x10*3/uL Absolute Nucleated RBC (0.0-0.012) X10*3/uL Nucleated RBC % (auto) (0.0-0.2) /100WBC PT 11.6 (10.0-13.1) SEC INR 1.0 (0.9-1.1) APTT (26.0-36.4) SEC D-Dimer High Sensitivty NG/ML Sodium 137 (135-145) mmol/L Potassium 3.9 (3.3-5.1) mmol/L Chloride 106 (96-108) mmol/L Carbon Dioxide 25 (22-29) mmol/L Anion Gap 10 L (12-20) BUN 19 H (9-16) mg/dL Creatinine 0.70 (0.5-1.4) mg/dL Estim Creat Clear Calc 89.5 Estimated GFR > 60 POC Glucose (60-115) mg/dL Random Glucose 97 (60-115) mg/dL Lactic Acid (0.5-2.0) mmol/L Calcium 9.3 (8.4-10.2) mg/dL Magnesium 2.0 (1.6-2.6) mg/dL Total Bilirubin 0.2 (0.0-1.0) mg/dL Direct Bilirubin < 0.2 (0.0-0.5) mg/dL AST 26 (5-31) U/L ALT 28 (0-31) U/L Alkaline Phosphatase 80 (39-117) U/L Troponin I High Sens < 3.5 (<3.5-17.0) ng/L Total Protein 7.2 (6.5-8.0) g/dL Albumin 4.1 (3.5-5.0) g/dL Lipase 29 (8-78) U/L Influenza Type A (PCR) (Negative) Influenza Type B (PCR) (Negative) RSV RNA Qual (PCR) (Negative) SARS-CoV-2 RNA (RT-PCR) (Negative) 10/01/22 10/01/22 10/01/22 Range/Units 17:53 17:53 18:41 WBC (4.8-10.8) X10*3/uL RBC (4.20-5.50) X10*6/uL Hgb (12.0-16.0) g/dl Hct (37.0-47.0) % MCV (80.0-98.0) fL MCH (27.0-33.0) pg MCHC (31.0-35.0) g/dl RDW (11.0-16.0) % Plt Count (160-400) X10*3/uL MPV (9.4-12.3) fL Immature Gran % (Auto) (0.0-0.4) % Neut % (Auto) (45-73) % Lymph % (Auto) (20-40) % [place] % (Auto) (2-11) % Eos % (Auto) (0-4) % Baso % (Auto) (0-2) % Lymph # (Auto) (1.2-4.9) X10*3/uL [place] # (Auto) (0.1-1.2) X10*3/uL Eos # (Auto) (0.0-0.4) X10*3/uL Baso # (Auto) (0.0-0.2) X10*3/uL Abs Immat Gran (auto) (0.00-0.03) X10*3/uL Absolute Neuts (auto) (2.0-8.3) x10*3/uL Absolute Nucleated RBC (0.0-0.012) X10*3/uL Nucleated RBC % (auto) (0.0-0.2) /100WBC PT (10.0-13.1) SEC INR (0.9-1.1) APTT (26.0-36.4) SEC D-Dimer High Sensitivty < 150 NG/ML Sodium (135-145) mmol/L Potassium (3.3-5.1) mmol/L Chloride (96-108) mmol/L Carbon Dioxide (22-29) mmol/L Anion Gap (12-20) BUN (9-16) mg/dL Creatinine (0.5-1.4) mg/dL Estim Creat Clear Calc Estimated GFR POC Glucose (60-115) mg/dL Random Glucose (60-115) mg/dL Lactic Acid 0.5 (0.5-2.0) mmol/L Calcium (8.4-10.2) mg/dL Magnesium (1.6-2.6) mg/dL Total Bilirubin (0.0-1.0) mg/dL Direct Bilirubin (0.0-0.5) mg/dL AST (5-31) U/L ALT (0-31) U/L Alkaline Phosphatase (39-117) U/L Troponin I High Sens (<3.5-17.0) ng/L Total Protein (6.5-8.0) g/dL Albumin (3.5-5.0) g/dL Lipase (8-78) U/L Influenza Type A (PCR) NEGATIVE (Negative) Influenza Type B (PCR) NEGATIVE (Negative) RSV RNA Qual (PCR) NEGATIVE (Negative) SARS-CoV-2 RNA (RT-PCR) NEGATIVE (Negative) <Davion Mercado MD - Last Filed: 10/02/22 02:39> Imaging Data CT head, facial bones, cervical spine: Attestation: I personally reviewed and interpreted this imaging study as follows: <Mary George NP - Last Filed: 10/01/22 23:51> Radiologist's impression: FINDINGS: Head: There is no evidence of acute intracranial hemorrhage or territorial infarction. No abnormal mass effect or midline shift is seen. Rubio to white matter differentiation is well preserved. No extra-axial fluid collections are identified. No hydrocephalus. No significant volume loss. There is no abnormal attenuation within the brain parenchyma. No acute soft tissue abnormality. No calvarial fracture. The mastoid air cells are well aerated. Maxillofacial: No acute maxillofacial fractures are seen. Small mucous retention cyst in the right maxillary sinus. No air-fluid levels. The mastoids and middle ear cavities are clear. The nasal septum is severe to the right. The mandibular heads are well-seated in the condylar fossa. The orbits demonstrate a normal appearance bilaterally. The globes are intact, and there are no suspicious findings to suggest retrobulbar hemorrhage. Cervical spine: Straightening of the cervical lordosis with otherwise maintained anatomic alignment. The atlantoaxial and atlantooccipital articulations are intact. Vertebral body heights are maintained. There is multilevel intervertebral disc space narrowing with endplate osteophyte formation and facet arthropathy. Prominent anterior osteophyte at the level of C5-C6. No evidence of acute fracture. No prevertebral soft tissue swelling. Visualized portions of the lung apices are unremarkable. The thyroid gland is unremarkable. CT/CT facial bones wo IV con IMPRESSION: 1.? No acute intracranial abnormalities. 2.? No acute maxillofacial fractures. 3.? No acute cervical fractures or malalignment. ? <Mary George NP - Last Filed: 10/01/22 23:51> ECG Data Attestation: I personally reviewed and interpreted this ECG as follows: <Mary George NP - Last Filed: 10/01/22 23:51> ECG interpretation date: 10/01/22 <Mary George NP - Last Filed: 10/01/22 23:51> ECG interpretation time: 17:19 <Mary George NP - Last Filed: 10/01/22 23:51> Prior ECG tracings: available for review <Mary George NP - Last Filed: 10/01/22 23:51> Interpretation: Vent. rate 64 BPM MO interval 168 ms QRS duration 90 ms QT/QTc 416/429 ms P-R-T axes 50 -5 18 Normal sinus rhythm Moderate voltage criteria for LVH, may be normal variant ( R in aVL , Juancarlos product ) Borderline ECG When compared with ECG of 03-APR-2019 22:20, No significant change was found <Mary George NP - Last Filed: 10/01/22 23:51> Scores Heart Score History: -0- slightly suspicious <Mary George NP - Last Filed: 10/01/22 23:51> ECG: -0- normal <Mary George NP - Last Filed: 10/01/22 23:51> Age: -1- >45 - <65 <Mary George NP - Last Filed: 10/01/22 23:51> Risk factory: -1- 1 or 2 risk factors <Mary George NP - Last Filed: 10/01/22 23:51> Troponin: -0- < or = normal limit <Mary George NP - Last Filed: 10/01/22 23:51> Score: 2 <Mary George NP - Last Filed: 10/01/22 23:51> 2 <Davion Mercado MD - Last Filed: 10/02/22 02:39> Risk: 1.7% <Mary George NP - Last Filed: 10/01/22 23:51> 1.7% <Davion Mercado MD - Last Filed: 10/02/22 02:39> Discharge Plan Discharge Clinical Impression: Syncope, Concussion <Mary George NP - Last Filed: 10/01/22 23:51> Patient Disposition: Home, Self-Care <Mary George NP - Last Filed: 10/01/22 23:51> Instructions: Syncope (ED), Concussion (ED), Post Concussion Syndrome (ED) <Mary George NP - Last Filed: 10/01/22 23:51> Additional Instructions: Fue evaluado por episodio sincopal con golpe en la syeda. La tomograf?a computarizada de la syeda, la anna y la columna cervical es negativa para hallazgos agudos. Lina valores de laboratorio est?n dentro de los l?mites normales. Zacarias electrocardiograma es normal. Las enzimas cardiacas son negativas. COVID influenza RSV son negativos. Raad un seguimiento con el m?dico de atenci?n primaria para el protocolo posterior y el estudio adicional para el episodio sincopal. Actualizamos zacarias vacuna Tdap hoy. Geri por elegir brijesh departamento de emergencias para zacarias evaluaci?n. Por favor, raad un seguimiento con el m?dico de atenci?n primaria seg?n sea necesario. Regrese al departamento de emergencias por cualquier s?ntoma nuevo, preocupante o que empeore. You were evaluated for syncopal episode with head strike. CT scan of head, face, and cervical spine are negative for acute findings. Her lab values are within normal limits. Your EKG is normal. Cardiac enzymes are negative. COVID influenza RSV are negative. Please follow-up with primary care physician for post protocol and further workup for syncopal episode We updated her Tdap vaccine today. Thank you for choosing this emergency department for evaluation. Please follow-up with primary care physician as needed. Return to the emergency department for any new, concerning, or worsening symptoms. <Mary George NP - Last Filed: 10/01/22 23:51> Prescriptions: No Action famotidine 20 mg tablet 20 mg PO BID Qty: 90 2RF naproxen 500 mg tablet 500 mg PO BID PRN (Reason: pain) Qty: 14 0RF ondansetron HCl [Zofran] 4 mg tablet 4 mg PO Q8H PRN (Reason: nausea and vomiting) Qty: 14 0RF sucralfate 100 mg/mL suspension 10 ml PO BID Qty: 1000 0RF duloxetine 60 mg capsule,delayed release(DR/EC) 60 mg PO BEDTIME cholecalciferol (vitamin D3) [Vitamin D3] 25 mcg (1,000 unit) capsule 25 mcg PO QAM buspirone 15 mg tablet 30 mg PO loratadine 10 mg tablet 10 mg PO QAM zolpidem 10 mg tablet 10 mg PO BEDTIME hydrochlorothiazide 25 mg tablet 25 mg PO QAM amlodipine 10 mg tablet 10 mg PO QAM (DME) blood pressure test kit-large Kit See Rx Instructions .ROUTE DAILY Qty: 1 Rx Instructions: As directed ergocalciferol (vitamin D2) 1,250 mcg (50,000 unit) capsule 1,250 mcg PO QWEEK linaclotide 145 mcg capsule 145 mcg PO DAILY Qty: 90 1RF Suprep Bowel Prep Kit 17.5-3.13-1.6 gram recon soln See Rx Instructions PO .COMPLEX Qty: 354 0RF Rx Instructions: DILUTE; drink 1/2 at 6-8 pm and half at 11 PM- 1AM <Mary George NP - Last Filed: 10/01/22 23:51> Stand Alone Forms: Work/School Release <Mary George NP - Last Filed: 10/01/22 23:51> Interventions: ED Discharge Assessment Last Done: 10/01/22 19:52 <Mary George NP - Last Filed: 10/01/22 23:51> Discharge Date/Time: 10/01/22 19:53 <Mary George NP - Last Filed: 10/01/22 23:51>
[2022-10-01 16:17] VITALS: O2SAT 98
--- NOTE | 2022-10-01 16:17 | ECG_ITS ---
Test Reason : SYNCOPE Blood Pressure : / mmHG Vent. Rate : 064 BPM Atrial Rate : 064 BPM P-R Int : 168 ms QRS Dur : 090 ms QT Int : 416 ms P-R-T Axes : 050 -05 018 degrees QTc Int : 429 ms Normal sinus rhythm Moderate voltage criteria for LVH, may be normal variant ( R in aVL , Juancarlos product ) Borderline ECG When compared with ECG of 03-APR-2019 22:20, No significant change was found Referred By: Mary George Electronically Signed By:Riky Tanner
[2022-10-01 16:50] LABS: Glucose, Whole Blood 114 mg/dL (60-115)
--- NOTE | 2022-10-01 17:47 | PC.NURSE ---
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
[2022-10-01 18:02] LABS: Basophils Percent Auto 0.4 % (0-2); Eosinophils Absolute Auto 0.1 X10*3/uL (0.0-0.4); Eosinophils Percent Auto 1.3 % (0-4); Hematocrit 36.4 % (37.0-47.0); Hemoglobin 12.2 g/dl (12.0-16.0); Imm Gran Abs Auto 0.03 X10*3/uL (0.00-0.03); Imm Gran Pct Auto 0.4 % (0.0-0.4); Lymphocytes Absolute Auto 1.2 X10*3/uL (1.2-4.9); Lymphocytes Percent Auto 17.6 % (20-40); MANUAL DIFF FLAG NO; Mean Corpuscular HGB Conc 33.5 g/dl (31.0-35.0); Mean Corpuscular Hemoglobin 32.1 pg (27.0-33.0); Mean Corpuscular Volume 95.8 fL (80.0-98.0); Mean Platelet Volume 10.1 fL (9.4-12.3); Monocytes Absolute Auto 0.7 X10*3/uL (0.1-1.2); Monocytes Percent Auto 10.7 % (2-11); Neutrophils Absolute Auto 4.8 x10*3/uL (2.0-8.3); Neutrophils Percent Auto 69.6 % (45-73); Platelet Count 273 X10*3/uL (160-400); Red Cell Distribution Width 11.7 % (11.0-16.0); White Blood Count 6.9 X10*3/uL (4.8-10.8)
[2022-10-01 18:08] LABS: Prothrombin Time 11.6 SEC (10.0-13.1)
[2022-10-01 18:11] LABS: Partial Thromboplastin Time 27.6 SEC (26.0-36.4)
[2022-10-01 18:14] LABS: D Dimer High Sensitivity < 150 NG/ML
--- NOTE | 2022-10-01 18:14 | PC.NURSE ---
Patient refusing tetanus shot from this RN
[2022-10-01 18:19] LABS: Alanine Aminotransferase 28 U/L (0-31); Albumin Level 4.1 g/dL (3.5-5.0); Alkaline Phosphatase 80 U/L (39-117); Anion Gap 10 (12-20); Aspartate Amino Transferase 26 U/L (5-31); Bilirubin Direct < 0.2 mg/dL (0.0-0.5); Bilirubin Total 0.2 mg/dL (0.0-1.0); Blood Urea Nitrogen 19 mg/dL (9-16); Calcium 9.3 mg/dL (8.4-10.2); Carbon Dioxide 25 mmol/L (22-29); Chloride 106 mmol/L (96-108); Creatinine Clr Calc Pharmacy 89.5; Estimated Glomerular Filt Rate > 60; Glucose Random 97 mg/dL (60-115); Lipase 29 U/L (8-78); Potassium 3.9 mmol/L (3.3-5.1); Sodium 137 mmol/L (135-145); Total Protein 7.2 g/dL (6.5-8.0)
[2022-10-01 18:27] LABS: Troponin-I High Sensitivity < 3.5 ng/L (<3.5-17.0)
[2022-10-01 18:40] LABS: Influenza A PCR NEGATIVE (Negative); Influenza B PCR NEGATIVE (Negative); Resp Syncy Virus RNA Qual PCR NEGATIVE (Negative); SARS COV2 PCR INHOUSE NEGATIVE (Negative)
[2022-10-01 18:56] LABS: Lactic Acid 0.5 mmol/L (0.5-2.0)
== END 2022-10-01 19:53 | disposition home or self-care (01) ==
PROVIDERS: Nurse Practitioner Family; Emergency Provider Emergency Medicine
DX: R55 Syncope and collapse (principal); S06.0X0A Concussion without loss of consciousness, initial encounter; S00.511A Abrasion of lip, initial encounter; W17.89XA Other fall from one level to another, initial encounter; Y93.89 Activity, other specified; Y92.242 Post office as the place of occurrence of the external cause; Y99.9 Unspecified external cause status; Z20.822 Contact with and (suspected) exposure to COVID-19
CPT/HCPCS: 0241U; 36415; 70450; 70486; 71045; 72125; 80048; 80076; 82947; 83605; 83690; 83735; 84484; 85025; 85379; 85610; 85730; 87040; 90471; 93005; 99284

== ENCOUNTER 2022-11-18 14:04 | Outpatient (REF) | payer OTHER, MEDICAID, SELFPAY ==
--- NOTE | ~2022-11-18 | MM_ITS ---
EXAMINATION: MM SCREENING DIGITAL BREAST TOMOSYNTHESIS, BILATERAL CLINICAL INFORMATION: Screening. Asymptomatic. Left breast biopsy-proven fibroadenoma. The lifetime risk of breast cancer based on the Tyrer-Cuzick Model is 11.0%. COMPARISON: Mammography: November 06, 2021 and studies dating back to August 26, 2016 TECHNIQUE: Digital breast tomosynthesis is performed in both the craniocaudal and mediolateral oblique views along with computer-aided detection (CAD). Synthesized 2D images are generated from the tomosynthesis. FINDINGS: There are scattered areas of fibroglandular density (ACR BI-RADS breast composition Category b). There are no new significant masses, abnormal calcifications, or other abnormalities. The left breast fibroadenoma is seen to have some degenerative calcifications present. MM/MM tomosynthesis screening BI IMPRESSION: No significant changes from prior exam. ASSESSMENT: BI-RADS 2: Benign RECOMMENDATION: Routine annual mammography screening. This patient's information was entered into a reminder system with a target due date for their next mammogram.
== END 2022-11-18 14:05 | disposition home or self-care (01) ==
LOC: HO.MAMMO 14:04
PROVIDERS: PCP Family Medicine; Visit Provider Family Medicine
DX: Z12.31 Encounter for screening mammogram for malignant neoplasm of breast (principal)
CPT/HCPCS: 77063; 77067

== ENCOUNTER → 2022-12-09 08:53 | Outpatient (BNVA) | payer OTHER, MEDICAID, SELFPAY | PROVIDERS: PCP Family Medicine; Referring Provider Registered Nurse; Visit Provider Internal Medicine Cardiovascular Disease | DX: R55 Syncope and collapse (principal); I10 Essential (primary) hypertension | CPT/HCPCS: 93005; 99202 ==

== ENCOUNTER → 2022-12-28 12:38 | Outpatient (REF) | payer OTHER, MEDICAID, SELFPAY ==
--- NOTE | 2022-12-28 12:42 | HM_ITS ---
* Total monitoring time 30 days. Wear time, 15 days. Compliance 52%. * Monitoring period, 12/28/2022 through 01/25/2023. * Underlying rhythm is sinus. * Average heart rate 68/Min. Range 47 to 120/Min. * No significant arrhythmias identified. * No significant pauses or AV blocks. * Patient symptoms of dizziness correlates with sinus rhythm. MTDD
--- NOTE | 2022-12-28 12:42 | CA_ITS ---
Transthoracic Echocardiogram Patient (Last, First, Middle): Lety Bates, Gender: Female Date of : 1970 Age: 52 Procedure Date: 12/28/2022 Procedure Type: Transthoracic Echocardiogram Location: OP Height: 160.02 cm Weight: 71.22 kg BSA: 1.74 m2 Heart Rate: bpm BP: 136 / 84 mmHg Prize Jacker: OTTONIEL Referring MD: Riky Tanner MD Burn Nurse: Shawn Leon MD Symptoms: R55 - Syncope and collapse Study Quality: Adequate ECG Rhythm: Sinus Conclusions: - Essentially normal study Findings Left Ventricle Normal left ventricular size, thickness, and systolic function. The visually estimated ejection fraction is between 65-70%. Diastolic function is normal for age. Peak GLS si -20.3%, within normal limits. Right Ventricle Normal right ventricular cavity size and systolic function. Atria Both atria are normal in size. There is lipomatous hypertrophy of the interatrial septum. Interatrial shunt cannot be excluded. Aortic Valve The aortic valve structure and function is likely normal. There is no aortic valve stenosis. There is no aortic valve regurgitation. Mitral Valve Normal mitral valve structure and function. There is trace mitral valve regurgitation. There is no mitral valve stenosis. Pulmonic Valve The pulmonic valve was not well visualized. Tricuspid Valve Likely normal tricuspid valve structure and function. There is trace tricuspid valve regurgitation. The right ventricular systolic pressure is normal. The right ventricular systolic pressure is 24 mmHg. Normal right atrial pressure. There is no evidence of pulmonary hypertension. Great Vessels All visible segments of the aorta are normal in size. The pulmonary artery was not well visualized. Venous The inferior vena cava is normal in size and collapses greater than 50% with inspiration. Pericardium/Pleural There is no evidence of pericardial effusion. Measurements 2D Linear Measurements IVSd: 1.06 0.6-0.9/0.6-1.0 cm LVIDd: 4.02 3.9-5.3/4.2-5.9 cm LVIDd Index: 2.31 2.4-3.2/2.2-3.1 cm/m2 LVIDs: 2.43 2.0-3.6 cm LVPWd: 1.08 0.7-1.1 cm LA Diam: 3.30 2.7-3.8/3.0-4.0 cm LAIDs Index: 1.90 1.5-2.3 cm/m2 LV Mass: 175.53 67-162/88-224 g LV Mass Index: 100.88 43-95/49-115 g/m2 LVOT Diam: 1.90 3.0+(-)1.3 cm 2D Systolic Function EF 4C: 68.80 >55% EF 2C: 67.00 >55% EF BiP: 67.80 >55% Mitral Valve MV Pk E: 0.97 MV PK A: 0.76 MV Decel Time: 186.00 E/A: 1.30 E'Lateral: 11.50 E'Medial: 9.14 E/E' Med: 10.70 E/E' Lat: 8.50 PHT: 55.00 MVA PHT: 4.00 Decel Mckean: 5.23 Aortic Valve AoV Pk Leonel: 1.63 AoV Mn Leonel: 1.17 AoV VTI: 0.38 AoV Pk Grad: 11.00 Aov Mn Grad: 6.00 MARTIN Cont.VTI: 1.79 LVOT LVOT Pk Leonel: 1.14 LVOT Mn Leonel: 0.78 LVOT VTI: 0.24 LVOT Pk Grad: 5.00 LVOT Mn Grad: 3.00 LVOT Diam: 1.90 LVOT Area: 2.84 Diastolic Function MV Pk E: 0.97 MV Pk A: 0.76 E/A: 1.30 E'Medial: 9.14 E/E' Med: 10.70 E' Laterial: 11.50 E/E' Lat: 8.50 Right Ventricle TAPSE (mm): 24.30 TVS' Leonel: 12.40 Tricuspid Valve TR Pk Leonel: 2.31 TR Pk Grad: 21.00 RA Press: 3.00 RVSP: 24.00 Great Vessels Aorta Sinus of Valsalva: 2.95 2.0-3.5 cm Ao Asc: 2.90 2.1-3.4 cm Ao Arch: 2.90 Updated in Other Vendor System with Status of Final Shawn Leon MD electronically signed on 12/29/2022 12:46:26 PM with status of Final
== END ==
LOC: HO.CARD 12:38
PROVIDERS: PCP Family Medicine; Visit Provider Internal Medicine Cardiovascular Disease
DX: R55 Syncope and collapse (principal)
CPT/HCPCS: 93270; 93306; 93356

== ENCOUNTER → 2023-02-10 14:48 | Outpatient (BNVA) | payer OTHER, MEDICAID, SELFPAY | PROVIDERS: PCP Family Medicine; Referring Provider Family Medicine; Visit Provider Internal Medicine Cardiovascular Disease | DX: R55 Syncope and collapse (principal); I10 Essential (primary) hypertension | CPT/HCPCS: 99212 ==

== ENCOUNTER 2023-03-18 12:41 | Outpatient (REF) | payer OTHER, MEDICAID, SELFPAY ==
--- NOTE | 2023-03-18 13:02 | EEG_ITS ---
FINDINGS: Waking background activity consists of a low voltage 10 to 11 hertz posterior alpha frequency that is seen symmetrically and attenuates well with eye opening on low voltage fast frequencies predominate anteriorly. Drowsiness is characterized by diffuse theta slowing. During sleep, symmetrical frontocentral sleep spindles develop over both hemispheres. Arousals are unremarkable. No focal, lateralizing, or paroxysmal discharges were seen. IMPRESSION: This 24-hour ambulatory EEG is within normal limits. MD KANWAL Quezada/SHIRLEY / [phone]
== END 2023-03-18 12:42 | disposition home or self-care (01) ==
LOC: HO.NEURO 12:41
PROVIDERS: PCP Family Medicine; Visit Provider Psychiatry & Neurology Neurology
DX: R55 Syncope and collapse (principal)
CPT/HCPCS: 95708

== ENCOUNTER 2023-04-09 08:58 | Outpatient (REF) | payer OTHER, MEDICAID, SELFPAY ==
--- NOTE | ~2023-04-09 | XR_ITS ---
EXAMINATION: XR ABDOMEN KUB CLINICAL INDICATION: Irritable bowel syndrome COMPARISON: None available. TECHNIQUE: AP view of the abdomen. FINDINGS: Moderate stool burden. No dilated loops of bowel to suggest obstruction. No free air. No suspicious calcification. Normal bony structures. XR/XR KUB IMPRESSION: Constipation. No evidence of obstruction.
== END 2023-04-09 08:59 | disposition home or self-care (01) ==
LOC: HO.XRAY 08:58
PROVIDERS: PCP Family Medicine; Visit Provider Internal Medicine Gastroenterology
DX: K58.9 Irritable bowel syndrome, unspecified (principal)
CPT/HCPCS: 74018; 99212

== ENCOUNTER 2023-04-27 08:36 | Outpatient (REF) | payer OTHER, MEDICAID, SELFPAY ==
--- NOTE | ~2023-04-27 | US_ITS ---
EXAMINATION: US ABDOMEN LIMITED CLINICAL INFORMATION: Cholesterolosis of gallbladder. History of fatty liver and gallbladder polyps, please reassess. COMPARISON: Ultrasound abdomen complete 12/29/2021. Ultrasound abdomen limited 09/24/2021. TECHNIQUE: Real-time imaging of the right upper quadrant abdominal viscera. FINDINGS: PANCREAS: Normal. LIVER: The liver is normal in size. The liver contour is normal. There is diffuse increased liver parenchymal echogenicity, consistent with hepatic steatosis. No focal hepatic lesion. There is no intrahepatic biliary duct dilatation seen. GALLBLADDER: 5 mm gallbladder polyp minimally increase in size from prior previously 4 mm. The gallbladder is physiologically distended without evidence of stones, sludge, wall thickening or pericholecystic fluid. COMMON BILE DUCT: Normal in caliber measuring 0.5 cm in diameter. RIGHT KIDNEY: Normal. No hydronephrosis. No renal calculi or focal parenchymal lesions. The kidney measures 10.9 cm in maximum dimension. FREE FLUID: None. US/US abdomen limited IMPRESSION: * Hepatic steatosis. * 5 mm gallbladder polyp minimally increase in size from prior. If patient has no risk factors for gallbladder malignancy* or symptoms attributable to the gallbladder, follow-up recommendations are repeat ultrasound at one, 3, and 5 years from the date of original exam documenting the findings. If risk factors are present follow-up recommendations are ultrasound 6 months and one, 2, 3, 4, and 5 years from the date of original exam documenting the findings.
--- NOTE | ~2023-04-27 | MR_ITS ---
EXAMINATION: MR BRAIN WITHOUT CONTRAST CLINICAL INFORMATION: Dizziness COMPARISON: None TECHNIQUE: Multiplanar multisequence MR imaging of the brain was obtained without intravenous contrast. Patient was unable to complete the examination and no intravenous contrast was administered. Axial T2 weighted imaging was also not performed. FINDINGS: There is no acute infarct on diffusion-weighted imaging. There is no intracranial hemorrhage on iron-sensitive imaging. No extra-axial collection or mass effect/herniation. Normal parenchymal signal characteristics. No hydrocephalus. The ventricles are normal in morphology and size. The midline structures are normal. The cerebellar tonsils are normally positioned. The craniocervical junction is normal. Marrow signal is within normal limits. The visualized soft tissues are without significant abnormality. Small right maxillary sinus retention cyst. MR/MR head/brain wo con IMPRESSION: Unremarkable noncontrast MRI of the brain.
== END 2023-04-27 08:37 | disposition home or self-care (01) ==
LOC: HO.US 08:36
PROVIDERS: PCP Family Medicine; Visit Provider Internal Medicine Gastroenterology
DX: K82.4 Cholesterolosis of gallbladder (principal); R42 Dizziness and giddiness
CPT/HCPCS: 70551; 76705

== ENCOUNTER 2023-05-26 12:59 | Outpatient (AMB) | payer OTHER, MEDICAID, SELFPAY ==
--- NOTE | 2023-05-26 13:43 | A.OFFVIS_ITS ---
Intake Vital Signs 05/26/23 13:44 Height 5 ft 3 in Weight 175 lb 0.752 oz BMI 31.0 BP 136/88 Blood Pressure Location Lt brachial Position Sitting Pulse 60 Pulse Source Monitor Intake Visit Reasons: 3 mth f/up Intake Note: 3 month follow up with EKG. 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 Pony Ride Attendant Language: Inspector Chief Name: Vale [id number] [employer] Ipad Accompanied by: Self / Same As Patient Allergies No Known Allergies Allergy (Verified 05/26/23 13:45) Medication List - Last Reconciled 05/26/23 by Riky Tanner MD amlodipine 10 mg PO QAM blood pressure test kit-large As directed buspirone 30 mg PO cholecalciferol (vitamin D3) (Vitamin D3) 25 mcg PO QAM ciprofloxacin HCl 500 mg PO BID 2 weeks famotidine 20 mg PO BID fluticasone propion-salmeterol 500-50 mcg/dose 1 ea inhalation gabapentin 300 mg PO TID hydrochlorothiazide 25 mg PO QAM loratadine 10 mg PO QAM meclizine 25 mg PO BID PRN ondansetron HCl (Zofran) 4 mg PO Q8H PRN polyethylene glycol 3350 (Miralax) 17 grams PO BID zolpidem 10 mg PO BEDTIME HPI HPI Comments History of Present Illness Details Pleasant 52-year-old female who is here for episode of syncope. She was last seen in 2019 at which stage she was complaining of palpitations which were felt to be related to anxiety. Her workup was normal at that time. It appears she was standing in a line and bent down and then passed out falling forward and hitting her face. She said she was feeling hot and cold. As she came to senses she was confused and does not remember how she got to the hospital. No seizure-like activity, urinary or fecal incontinence or tongue bite noticed. At home she was having some urinary urgency and she had urinary incontinence at 1 stage. She has never had seizures before. she is denying any other symptoms currently. Blood pressure in the office is okay. She is quite concerned because she has family history of heart issues. After discussion she was referred for echocardiography which was essentially normal. She also had a cardiac event monitor which she wore for 15 days. She had sinus rhythm and no significant arrhythmia was noted. 02/10/23: She is getting some postural dizziness and I am not sure whether orthostasis is playing a role. She is on hydrochlorothiazide and amlodipine. She is saying she is drinks water during the day. She has yet to see Neurology in consultation to rule out seizures. 05/26/23: She is here for follow-up. She is complaining of fatigue. She is saying that the CPAP mask leaks and she is trying to get supplies through her insurance. She is still using the mass but has significant air leak by her description. She is taking medications as before. On last visit we advised her to stop hydrochlorothiazide but appears she is still using that. She is saying she gets minimal symptoms at this point. She is also complaining of some palpitations. Quite vague about her story. Overall quite fatigued and tired. Blood pressure control is good. [facility] Medical History HTN (hypertension) Surgical History History of esophagogastroduodenoscopy (EGD) History of hysterectomy Hx of colonoscopy Family History Father Diabetes Arthritis Hypertension Hypercholesteremia Mother Diabetes Hypertension Arthritis Son Asthma Son Asthma Heart problem Social History Alcohol intake: never Patient Tobacco Use Status: Never used Tobacco Review of Systems Const Denies weakness ENT Denies dizziness Card Denies chest pain, Denies chest pain with activity, Denies syncope, Denies rapid heart rate, Denies pedal edema, Denies edema, Denies leg edema, Denies lightheadedness, Denies palpitations, Denies dyspnea, Denies dyspnea on exertion and Denies orthopnea Resp Denies cough, Denies dyspnea and Denies dyspnea on exertion GI Denies hematochezia and Denies change in stool character Musc Denies abnormal gait, Denies muscle cramps, Denies muscle weakness, Denies numbness, Denies radiating pain into limb and Denies tingling Neuro Denies abnormal gait, Denies dizziness, Denies syncope, Denies numbness, Denies tingling and Denies weakness Endo Denies palpitations Physical Exam Vital Signs: Last Vital Signs Pulse 60 07/26/23 13:44 BP 136/88 05/26/23 13:44 BMI result Body Mass Index 31.0 GENERAL APPEARANCE: in no acute distress, depressed. NECK: no carotid bruit, no jugular venous distention. SKIN: no suspicious lesions, warm and dry. HEART: no murmurs, regular rate and rhythm. LUNGS: clear to auscultation bilaterally. ABDOMEN: soft, nontender. EXTREMITIES: no edema. PERIPHERAL PULSES: equal. NEUROLOGIC: No gross deficits, AAO X 3 Office Procedures EKG Details: Sinus rhythm 60 beats per minute, normal axis, left ventricular hypertrophy, QTC 422 milliseconds. [id number], Complete Assessment & Plan Assessment & Plan (1) HTN (hypertension): Code(s): I10 - Essential (primary) hypertension (2) Syncope: Code(s): R55 - Syncope and collapse Plan Pleasant 52-year-old female who is here for follow-up. She has background of hypertension. Blood pressure control is good. Denies significant dizziness and syncope. Previously we had the hydrochlorothiazide but she continues to take hydrochlorothiazide. I think she can continue all medications for now. She has not been able to tolerate the CPAP because of poorly fitted mask. I think that is playing diaz role in her fatigue right now. I have advised her to follow up on that. Will do some basic blood workup to see if he can find any electrolyte issues or thyroid disease to explain her significant fatigue. Thank you for allowing me to participate in the care of your patient. Please feel free to contact me if you have any questions. Orders: Orders Basic Metabolic Panel Today R53.83 - Other fatigue Magnesium Today R53.83 - Other fatigue Complete Blood Count no Diff Today R53.83 - Other fatigue TSH reflex Free T4 Today R53.83 - Other fatigue Coding Level of Care Code Est Pt Level 4 (47723) Diagnoses HTN (hypertension) I10 Syncope R55 CPT Codes EKG - CPT: 85117-[id number], Complete ([id number])
[2023-05-26 13:44] VITALS: BP 136/88; PULSE 60; BMI 31.0
== END 2023-05-26 14:08 | disposition home or self-care (01) ==
PROVIDERS: Visit Provider Internal Medicine Cardiovascular Disease
DX: I10 Essential (primary) hypertension (principal); R55 Syncope and collapse
CPT/HCPCS: 93010; 99214

== ENCOUNTER → 2023-05-26 12:59 | Outpatient (BNVA) | payer OTHER, MEDICAID, SELFPAY | PROVIDERS: Visit Provider Internal Medicine Cardiovascular Disease | DX: I10 Essential (primary) hypertension (principal); R55 Syncope and collapse | CPT/HCPCS: 93005; 99212 ==

== ENCOUNTER 2023-05-31 08:56 | Outpatient (REF) | payer OTHER, MEDICAID, SELFPAY ==
[2023-05-31 10:15] LABS: Hematocrit 37.5 % (37.0-47.0); Hemoglobin 12.2 g/dl (12.0-16.0); Mean Corpuscular HGB Conc 32.5 g/dl (31.0-35.0); Mean Corpuscular Hemoglobin 31.4 pg (27.0-33.0); Mean Corpuscular Volume 96.6 fL (80.0-98.0); Mean Platelet Volume 10.4 fL (9.4-12.3); Platelet Count 304 X10*3/uL (160-400); Red Blood Count 3.88 X10*6/uL (4.20-5.50)
[2023-05-31 10:57] LABS: Anion Gap 16 (12-20); Blood Urea Nitrogen 25 mg/dL (9-16); Calcium 9.3 mg/dL (8.4-10.2); Carbon Dioxide 22 mmol/L (22-29); Chloride 111 mmol/L (96-108); Estimated Glomerular Filt Rate > 60; Glucose Random 109 mg/dL (60-115); Magnesium 1.9 mg/dL (1.6-2.6); Potassium 4.5 mmol/L (3.3-5.1); Sodium 144 mmol/L (135-145)
[2023-05-31 11:15] LABS: TSH reflex Free T4 2.26 uIU/mL (0.32-4.0)
== END 2023-05-31 08:57 | disposition home or self-care (01) ==
LOC: HO.LAB 08:56
PROVIDERS: PCP Family Medicine; Visit Provider Internal Medicine Cardiovascular Disease
DX: R53.83 Other fatigue (principal)
CPT/HCPCS: 36415; 80048; 83735; 84443; 85027

== ENCOUNTER 2023-07-19 16:24 | Outpatient (REF) | payer OTHER, MEDICAID, SELFPAY | END 2023-07-19 16:25 | disposition home or self-care (01) | LOC: HO.HOSX 16:24 | PROVIDERS: Visit Provider Physician Assistant | DX: Z13.89 Encounter for screening for other disorder (principal) ==

== ENCOUNTER 2023-07-21 09:36 | Outpatient (AMB) | payer OTHER, MEDICAID, SELFPAY ==
--- NOTE | 2023-07-21 10:04 | A.OFFVIS_ITS ---
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 Patient reports pain has been present for a while, she was last seen with Dr. Easton on 08/22/2019 where an injection was given in left knee. States injection provided relief until recently, pain returned about 2 months ago with her left knee being the worse. States having cramps in left leg that causes stiffness in toes. Occasional numbness and tingling. Finds no relief with topical cream and tries to avoid taking Motrin due to other medications. 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 She was seen by Dr. Easton on 08/22/19 where she was given a left knee injection which provided her relief until recently. She states she has bilateral knee pain which is worse in her left knee. She reports having cramps in her left leg which causes stiffness in her toe. Her pain is aggravated with ambulation. She also c/o occasional numbness and tingling in her knees. She finds no relief with topical creams. She has a history of prediabetes. [facility] Medical History HTN (hypertension) Surgical History Hx of colonoscopy History of esophagogastroduodenoscopy (EGD) History of hysterectomy Family History Father Diabetes Arthritis Hypertension Hypercholesteremia Mother Diabetes Hypertension Arthritis Son Asthma Son Asthma Heart problem Social History (Updated 07/21/23 @ 10:33 by RICHARD Cortez) Alcohol intake: never Patient Tobacco Use Status: Never used Tobacco Current occupational status: retired Review of Systems Const All systems reviewed & are unremarkable except as noted in HPI and below Physical Exam Vital Signs: BMI result Body Mass Index 31.0 Const General: cooperative, healthy appearing, comfortable, no acute distress, well developed and alert Orientation/consciousness: patient oriented x3 HEENT Head: Yes normal to inspection, Yes normocephalic and Yes atraumatic Eyes General: appearance normal, both eyes and all related structures Resp Effort & Inspection: normal respiratory effort and able to speak in complete sentences Cardio Rate: regular rate Peripheral pulses: Peripheral pulses 2+ throughout GI Palpation (GI): Soft to palpation Skin Lesions: no lesions Rashes: no rashes Neuro General: patient oriented x3 Extrem Other: Left knee: Skin intact, no erythema or joint effusion. Diffused medial and lateral joint line tenderness along with lateral retropatellar tenderness. Full ROM with crepitus. Negative Max?s. No ligamentous laxity. NVI. Office Procedures Joint Injection/Drain Joint Injection/Drain Primary Site: left knee Prep: site was prepped using aseptic technique, ethochloride spray was applied and injection warnings given Injected: 80 mg of, DepoMedrol, with 8 mL of, 1% plain lidocaine and in the joint Approach Used: anterolateral Procedure: The patient tolerated the procedure well and there was some relief with the local anesthesia Coding 96895 - Glenohumeral/Tronchanteric Bursa/Intraarticular Procedure code (CPT) selection complete Results Reviewed Results Reviewed: 07/21/23 10:55 Lidocaine HCl 2 % MPF [Xylocaine 2 % MPF] 5 ml .ROUTE .STK-MED ONE methylPREDNISolone acetate [DEPO-MedroL] 80 mg .ROUTE .STK-MED ONE Xrays were obtained in the office today and personally reviewed by me of both knees show mild medial joint collapse with Patella femoral osteophytes. Assessment & Plan Assessment & Plan (1) Osteoarthritis of knees, bilateral: Code(s): M17.0 - Bilateral primary osteoarthritis of knee Qualifiers: Osteoarthritis type: primary Qualified Code(s): M17.0 - Bilateral primary osteoarthritis of knee Plan We discussed options today which include steroid injection. They did consent to move forward with the left knee injection, which was tolerated well. I recommended rest, ice and elevation and OTC anti-inflammatories PRN for discomfort. If symptoms persist or worsens over the next 6-8 weeks, patient will contact the office, otherwise follow-up as needed. Orders: Orders XR knee LT 2V Today M25.562 - Pain in left knee XR knee standing BI Today M25.561 - Pain in right knee, M25.562 - Pain in left knee XR knee RT 2V Today M25.569 - Pain in unspecified knee Patient Instructions: Scribed for Ariel Morocho PA-C, by Junior Vera medical reimbursement manager, on 07/21/2023 at 10:00 AM EST. IAriel PA-C, have personally reviewed and agree with the information entered by the scribe. Coding Level of Care Code New Pt Level 3 (08466) Diagnoses Primary osteoarthritis of both knees M17.0 Osteoarthritis type: primary CPT Codes Coding - Joint 7: 26532 - Glenohumeral/Tronchanteric Bursa/Intraarticular ([id number])
[2023-07-21 10:32] VITALS: BMI 31.0
== END 2023-07-21 11:08 | disposition home or self-care (01) ==
PROVIDERS: PCP Family Medicine; Visit Provider Physician Assistant
DX: M17.0 Bilateral primary osteoarthritis of knee (principal)
CPT/HCPCS: 20610; 99204

== ENCOUNTER 2023-07-21 16:24 | Outpatient (REF) | payer OTHER, MEDICAID, SELFPAY ==
--- NOTE | ~2023-07-21 | XR_ITS ---
EXAMINATION: XR KNEE, RIGHT XR KNEE, LEFT XR KNEE, AP STANDING, BILATERAL CLINICAL INFORMATION: Bilateral knee pain. COMPARISON: 03/28/2019 TECHNIQUE: Standing AP view of both knees and lateral and sunrise views of each knee. FINDINGS: LEFT KNEE: Minimal tricompartmental osteoarthritis is characterized primarily by small marginal osteophytes. There is subcortical cystic change in the patellofemoral compartment at the patella, similar to prior. Medial and lateral compartment joint spaces appear relatively well-preserved. No fracture or malalignment. No joint effusion. No appreciable osseous loose bodies. RIGHT KNEE: Minimal tricompartmental osteoarthritis, characterized by tiny marginal osteophytes primarily. No fracture or malalignment. No joint effusion. Enthesopathic spurring at the quadriceps tendon insertion. Small 3 mm loose body in an anterior recess. XR/XR knee LT 2V IMPRESSION: Minimal tricompartmental osteoarthritis in both knees, most notably at the patellofemoral compartments, left side greater than right. Small 3 mm loose body in the anterior recess of the right knee.
--- NOTE | ~2023-07-21 | XR_ITS ---
EXAMINATION: XR KNEE, RIGHT XR KNEE, LEFT XR KNEE, AP STANDING, BILATERAL CLINICAL INFORMATION: Bilateral knee pain. COMPARISON: 03/28/2019 TECHNIQUE: Standing AP view of both knees and lateral and sunrise views of each knee. FINDINGS: LEFT KNEE: Minimal tricompartmental osteoarthritis is characterized primarily by small marginal osteophytes. There is subcortical cystic change in the patellofemoral compartment at the patella, similar to prior. Medial and lateral compartment joint spaces appear relatively well-preserved. No fracture or malalignment. No joint effusion. No appreciable osseous loose bodies. RIGHT KNEE: Minimal tricompartmental osteoarthritis, characterized by tiny marginal osteophytes primarily. No fracture or malalignment. No joint effusion. Enthesopathic spurring at the quadriceps tendon insertion. Small 3 mm loose body in an anterior recess. XR/XR knee RT 2V IMPRESSION: Minimal tricompartmental osteoarthritis in both knees, most notably at the patellofemoral compartments, left side greater than right. Small 3 mm loose body in the anterior recess of the right knee.
--- NOTE | ~2023-07-21 | XR_ITS ---
EXAMINATION: XR KNEE, RIGHT XR KNEE, LEFT XR KNEE, AP STANDING, BILATERAL CLINICAL INFORMATION: Bilateral knee pain. COMPARISON: 03/28/2019 TECHNIQUE: Standing AP view of both knees and lateral and sunrise views of each knee. FINDINGS: LEFT KNEE: Minimal tricompartmental osteoarthritis is characterized primarily by small marginal osteophytes. There is subcortical cystic change in the patellofemoral compartment at the patella, similar to prior. Medial and lateral compartment joint spaces appear relatively well-preserved. No fracture or malalignment. No joint effusion. No appreciable osseous loose bodies. RIGHT KNEE: Minimal tricompartmental osteoarthritis, characterized by tiny marginal osteophytes primarily. No fracture or malalignment. No joint effusion. Enthesopathic spurring at the quadriceps tendon insertion. Small 3 mm loose body in an anterior recess. XR/XR knee standing BI IMPRESSION: Minimal tricompartmental osteoarthritis in both knees, most notably at the patellofemoral compartments, left side greater than right. Small 3 mm loose body in the anterior recess of the right knee.
== END 2023-07-21 16:25 | disposition home or self-care (01) ==
LOC: HO.HOSX 16:24
PROVIDERS: Visit Provider Physician Assistant
DX: M17.0 Bilateral primary osteoarthritis of knee (principal)
CPT/HCPCS: 20610; 73560; 73565; J1040

== ENCOUNTER 2023-07-26 16:22 | Outpatient (REF) | payer OTHER, MEDICAID, SELFPAY ==
[2023-07-29 04:19] LABS: C. trachomatis RNA TMA NOT DETECTED (NOT DETECTED); N. gonorrhoeae RNA TMA NOT DETECTED (NOT DETECTED)
[2023-07-29 04:34] LABS: HPV mRNA E6/E7 rflx Not Detected (Not Detected)
== END 2023-07-26 16:23 | disposition home or self-care (01) ==
LOC: HO.HHCLNP 16:22
PROVIDERS: Visit Provider Family Medicine
DX: Z12.4 Encounter for screening for malignant neoplasm of cervix (principal); Z11.51 Encounter for screening for human papillomavirus (HPV)
CPT/HCPCS: 36415; 87491; 87591; 87624; 88142

== ENCOUNTER 2023-07-29 09:20 | Outpatient (REF) | payer OTHER, MEDICAID, SELFPAY ==
[2023-07-29 11:57] LABS: Cholesterol 208 mg/dL (<200); HDL Cholesterol 46 mg/dL (>40); LDL Cholesterol Calculated 139 mg/dL (<100); Triglycerides 117 mg/dL (<150)
[2023-07-30 03:32] LABS: ~HepC Num1 0.39 S/CO (0.00-0.79); ~Hepatitis C Antibody Nonreactive (Nonreactive)
== END 2023-07-29 09:21 | disposition home or self-care (01) ==
LOC: HO.HHCL 09:20
PROVIDERS: Visit Provider Family Medicine
DX: Z00.00 Encounter for general adult medical examination without abnormal findings (principal); Z11.59 Encounter for screening for other viral diseases
CPT/HCPCS: 36415; 80061; 86803

== ENCOUNTER 2023-08-13 09:00 | Outpatient (AMB) | payer OTHER, SELFPAY ==
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
[2023-08-13 09:06] VITALS: BP 131/78; PULSE 72; BMI 31.2
== END 2023-08-13 09:31 | disposition home or self-care (01) ==
PROVIDERS: PCP Family Medicine; Visit Provider Internal Medicine Gastroenterology
DX: K76.0 Fatty (change of) liver, not elsewhere classified (principal); K58.9 Irritable bowel syndrome, unspecified; K82.4 Cholesterolosis of gallbladder
CPT/HCPCS: 99214

== ENCOUNTER → 2023-08-13 09:00 | Outpatient (BNVA) | payer OTHER, MEDICAID, SELFPAY | PROVIDERS: PCP Family Medicine; Visit Provider Internal Medicine Gastroenterology | DX: K76.0 Fatty (change of) liver, not elsewhere classified (principal); K58.9 Irritable bowel syndrome, unspecified; K82.4 Cholesterolosis of gallbladder | CPT/HCPCS: 99212 ==

== ENCOUNTER 2023-08-26 12:56 | Outpatient (AMB) | payer OTHER, MEDICAID, SELFPAY ==
--- NOTE | 2023-08-26 12:59 | A.OFFVIS_ITS ---
Intake Vital Signs 08/26/23 13:00 Height 5 ft 3 in Weight 175 lb 7.807 oz BMI 31.1 BP 118/74 Blood Pressure Location Lt brachial Position Sitting Pulse 77 Intake Visit Reasons: 3 mth f/up km Intake Note: 3 mnth f/u patients having some palpitations Dirt Bike Mechanic Required: Yes Dirt Bike Mechanic Language: Dishroom Attendant Name: bren hudson [id number] Allergies No Known Allergies Allergy (Verified 08/26/23 13:02) Medication List - Last Reconciled 08/26/23 by PIERCE De La Cruz amlodipine 10 mg PO QAM blood pressure test kit-large As directed buspirone 30 mg PO cholecalciferol (vitamin D3) (Vitamin D3) 25 mcg PO QAM dicyclomine 10 mg PO TID duloxetine 60 mg PO BEDTIME famotidine 20 mg PO BID fluticasone propion-salmeterol 500-50 mcg/dose 1 ea inhalation gabapentin 300 mg PO TID hydrochlorothiazide 25 mg PO QAM loratadine 10 mg PO QAM meclizine 25 mg PO BID PRN ondansetron HCl (Zofran) 4 mg PO Q8H PRN polyethylene glycol 3350 (Miralax) 17 grams PO BID sodium,potassium,mag sulfates 17.5-3.13-1.6 gram (Suprep Bowel Prep Kit) DILUTE; drink 1/2 at 6-8 pm and half at 11 PM- 1AM zolpidem 10 mg PO BEDTIME HPI 3 mth f/up km HPI Details Lety is a 53-year-old female with past medical history of hypertension, syncopal event earlier this year, dizziness who presents for cardiac follow-up. Today she reports that she continues to have episodes of dizziness. She is somewhat vague in describing this even with the use of roofing superintendent. He says at home some time she needs help with walking because of the dizziness. She has a HANDY MAN. She has had no recurrent presyncope, syncope, falls. She does say that things go black sometimes. She has shortness of breath with activity which she feels is new or. No chest discomfort brought on by activity. No palp itations, PND, orthopnea or edema. She is taking her meds as directed. COUNTS INCLUDE 234 BEDS AT THE [facility] Medical History HTN (hypertension) Surgical History Hx of colonoscopy History of esophagogastroduodenoscopy (EGD) History of hysterectomy Family History Father Diabetes Arthritis Hypertension Hypercholesteremia Cancer Mother Diabetes Hypertension Arthritis Cancer Son Asthma Son Asthma Heart problem Social History Alcohol intake: never Patient Tobacco Use Status: Never used Tobacco Current occupational status: retired Review of Systems Const Details: anxiety, fatigue All systems reviewed & are unremarkable except as noted in HPI and below ENT Reports dizziness Card Denies chest pain, Denies chest pain at rest, Denies chest pain with activity, Denies rapid heart rate, Denies pedal edema, Denies edema, Denies leg edema, Denies lightheadedness, Denies palpitations, Denies dyspnea, Reports dyspnea on exertion (with chest tightness) and Denies orthopnea Resp Denies cough, Denies dyspnea and Reports dyspnea on exertion (with chest tightness) GI Denies hematochezia and Denies change in stool character Musc Reports abnormal gait (unsteady), Denies limited range of motion, Denies muscle cramps, Denies muscle weakness, Denies numbness, Denies radiating pain into limb, Denies stiffness and Denies tingling Neuro Reports abnormal gait (unsteady), Reports dizziness, Denies numbness and Denies tingling Endo Denies palpitations Physical Exam Vital Signs: Last Vital Signs Pulse 77 08/26/23 13:00 BP 118/74 08/26/23 13:00 BMI result Body Mass Index 31.1 Const General: cooperative, healthy appearing, comfortable and no acute distress Orientation/consciousness: patient oriented x3 Neck Neck: Yes normal visual inspection Resp Effort & Inspection: normal respiratory effort Auscultation: clear to auscultation bilaterally, no crackles, no rales, no rhonchi and no wheezes Cardio Jugular venous distension: no JVD Rate: regular rate Rhythm: regular rhythm Heart sounds: S1 normal heart sound present, S2 normal heart sound present, no murmurs and no rubs Neuro General: patient oriented x3 Extrem General: Yes normal to inspection and No no pedal edema Psych Appearance: grossly normal Mental Status: mental status grossly normal Speech and movement: Normal speech and movement present Office Procedures EKG Details: Today, read by me, normal sinus rhythm, no acute ST or T-wave abnormalities, rate 77, QTC 445 milliseconds [id number], Complete Assessment & Plan Assessment & Plan (1) Lightheadedness: Code(s): R42 - Dizziness and giddiness Plan: Reports of dizziness/lightheadedness. Syncopal event when bending over 10/01/2022. No recurrent syncope since then. Continues to have dizziness which seems to come and go without clear pattern. She did have echocardiogram on 12/28/2022 which was normal. Cardiac event monitor on 12/28/22 for 30 days showed sinus rhythm, average heart rate 68, no significant arrhythmias. She is on hydrochlorothiazide and amlodipine for blood pressure control. At this time she continues to report symptoms of dizziness. Blood pressure is normal range today, not orthostatic. Her dizziness may not be cardiac related however hydrochlorothiazide can increase her risk of dehydration. Will have her stop hydrochlorothiazide and start on lisinopril for blood pressure control. Informed that she may develop some mild edema from her amlodipine 10 mg daily. If that is the case we will increase lisinopril dose and reduce amlodipine. Reviewed with patient and she is agreeable to this plan. May need to further discuss her dizziness with her PCP as well. (2) Syncope: Code(s): R55 - Syncope and collapse Qualifiers: Syncope type: unspecified Qualified Code(s): R55 - Syncope and collapse (3) HTN (hypertension): Code(s): I10 - Essential (primary) hypertension Qualifiers: Hypertension type: primary hypertension Qualified Code(s): I10 - Essential (primary) hypertension Plan: As above (4) Fatigue: Code(s): R53.83 - Other fatigue Qualifiers: Fatigue type: chronic, unspecified Qualified Code(s): R53.82 - Chronic fatigue, unspecified Plan: Reports of fatigue. She has new CPAP mask and reports compliance. Can further discuss with PCP. Medications: New lisinopril 10 mg PO DAILY 30 tabs 3RF Coding Level of Care Code Est Pt Level 4 (06234) Diagnoses Lightheadedness R42 Syncope, unspecified syncope type R55 Syncope type: unspecified Primary hypertension I10 Hypertension type: primary hypertension Chronic fatigue R53.82 Fatigue type: chronic, unspecified CPT Codes EKG - CPT: [id number], Complete ([id number]) Time Spent (min) 28
[2023-08-26 13:00] VITALS: BP 118/74; PULSE 77; BMI 31.1
== END 2023-08-26 13:41 | disposition home or self-care (01) ==
PROVIDERS: PCP Family Medicine; Visit Provider Nurse Practitioner Family
DX: R42 Dizziness and giddiness (principal); R55 Syncope and collapse; I10 Essential (primary) hypertension; R53.82 Chronic fatigue, unspecified
CPT/HCPCS: 93010; 99214

== ENCOUNTER → 2023-08-26 12:56 | Outpatient (BNVA) | payer OTHER, MEDICAID, SELFPAY | PROVIDERS: PCP Family Medicine; Visit Provider Nurse Practitioner Family | DX: R42 Dizziness and giddiness (principal); R55 Syncope and collapse; R53.82 Chronic fatigue, unspecified; I10 Essential (primary) hypertension | CPT/HCPCS: 93005; 99212 ==

== ENCOUNTER 2023-08-27 14:38 | Emergency (ER) | payer OTHER, MEDICAID, SELFPAY ==
--- NOTE | ~2023-08-27 | US_ITS ---
EXAMINATION: US ABDOMEN LIMITED CLINICAL INFORMATION: Upper quadrant and epigastric pain. COMPARISON: None available. TECHNIQUE: Real-time imaging of the right upper quadrant abdominal viscera. FINDINGS: PANCREAS: Normal. LIVER: Increased echogenicity to enlarged liver measuring 17.2 cm. No focal hepatic lesion. There is no intrahepatic biliary duct dilatation seen. GALLBLADDER: 0.4 x 0.3 x 0.3 cm nonmobile, nonshadowing gallbladder wall echogenicity is seen. The gallbladder is physiologically distended without evidence of stones, sludge, wall thickening or pericholecystic fluid. COMMON BILE DUCT: Normal in caliber measuring 0.4 cm in diameter. RIGHT KIDNEY: Normal. No hydronephrosis. No renal calculi or focal parenchymal lesions. The kidney measures 10.8 cm in maximum dimension. FREE FLUID: None. US/US abdomen limited IMPRESSION: Enlarged fatty liver.
--- NOTE | ~2023-08-27 | CT_ITS ---
EXAMINATION: CT ABDOMEN AND PELVIS WITH CONTRAST CLINICAL INFORMATION: Abdominal pain. COMPARISON: 09/24/2021. TECHNIQUE: Multidetector volumetric images were obtained from the superior aspect of the liver through the pubic symphysis following administration 85 mL of Omnipaque 350 intravenous contrast. Sagittal and coronal reformatted images were obtained on the technologist's workstation. Oral contrast: No This CT examination was performed using dose optimization techniques as appropriate, variously including the following: *Automated exposure control *Adjustment of mA and/or kV according to patient size (this includes techniques or standardized protocols for targeted exams where dose is matched to indication/reason for exam; i.e. extremities or head) *Use of iterative reconstruction technique DLP: Lower quadrant pain. mGy-cm FINDINGS: LUNG BASES: The visualized lung bases are unremarkable. LIVER, GALLBLADDER, AND BILIARY TREE: The liver is normal in size, shape, and attenuation. No focal hepatic lesion or biliary ductal dilatation is present. The gallbladder is unremarkable with no evidence of radiopaque gallstones, gallbladder wall thickening, or obvious pericholecystic inflammatory changes. PANCREAS: Unremarkable. SPLEEN: Unremarkable. ADRENAL GLANDS: There is a 1.1 cm low-density left adrenal nodule. KIDNEYS AND URETERS: The kidneys are normal in size, shape, and attenuation. No hydronephrosis, hydroureter, or calculi seen. No perinephric stranding. BLADDER: Unremarkable. GASTROINTESTINAL TRACT: The small and large bowel are unremarkable. The appendix is unremarkable. ABDOMINAL WALL: There is a small umbilical hernia containing fat. LYMPH NODES: Normal. VASCULAR: Unremarkable. PELVIC VISCERA: Unremarkable. OSSEOUS STRUCTURES: Unremarkable. CT/CT abdomen pelvis w IV con IMPRESSION: No significant abnormality. Fleischner guidelines were followed.
[2023-08-27 14:41] VITALS: BP 150/66; PULSE 65; RESP 18; TEMP 36.2; O2SAT 98; BMI 31.4
--- NOTE | 2023-08-27 14:41 | ED_ITS ---
HPI - General Adult General Chief complaint: Abdominal Pain Stated complaint: Stomach & back pain Time Seen by Provider: 08/27/23 16:05 Source: patient and family History of Present Illness HPI narrative: 53-year-old female with a history of hypertension, IBS, presents for gradual onset of abdominal pain that began last night, August 26. Patient states that she had been laying down and began to have, sharp, cramping mid abdominal pain that radiates throughout her abdomen. She has had episodic waves of the same pain that has progressed throughout the day. She reports associated nausea and vomiting. She denies any diarrhea. She does report having several episodes of blood-streaked stool 2 days ago. She denies any melena. She has not tried any medication for this. She does have a history of IBS and states she has had abdominal pain in the past but not to this extent. She denies any recent travel. No sick contacts. She reports compliance with current medications. She denies any abdominal surgery except for tubal ligation. She denies any history of ovarian cyst. She does have a family history of kidney stones. Patient is otherwise feeling well. Related Data Home Medications Medication Instructions Recorded Confirmed amlodipine 10 mg tablet 10 mg PO QAM 04/03/22 08/26/23 blood pressure test kit-large #1 ea 04/03/22 08/26/23 buspirone 15 mg tablet 30 mg PO 04/03/22 08/26/23 cholecalciferol (vitamin D3) 25 25 mcg PO QAM 04/03/22 08/26/23 mcg (1,000 unit) capsule (Vitamin D3) loratadine 10 mg tablet 10 mg PO QAM allergies 04/03/22 08/26/23 zolpidem 10 mg tablet 10 mg PO BEDTIME 04/03/22 08/26/23 gabapentin 300 mg capsule 300 mg PO TID 02/10/23 08/26/23 fluticasone 500 mcg-salmeterol 50 1 ea inhalation 04/09/23 08/26/23 mcg/dose blistr powdr for inhalation duloxetine 60 mg capsule,delayed 60 mg PO BEDTIME 08/13/23 08/26/23 release Previous Rx's Medication Instructions Recorded ondansetron HCl 4 mg tablet 4 mg PO Q8H PRN nausea and 09/24/21 (Zofran) vomiting #14 tabs famotidine 20 mg tablet 20 mg PO BID #90 tabs 02/09/23 meclizine 25 mg tablet 25 mg PO BID PRN dizziness #60 tabs 04/09/23 polyethylene glycol 3350 17 17 g PO BID #510 grams 05/01/23 gram/dose oral powder (Miralax) dicyclomine 10 mg capsule 10 mg PO TID #90 caps 08/13/23 sodium,potassium,mag sulfates 17.5 See Rx Instructions PO .COMPLEX 08/13/23 gram-3.13 gram-1.6 gram oral soln #354 mL (Suprep Bowel Prep Kit) lisinopril 10 mg tablet 10 mg PO DAILY #30 tabs 08/26/23 ondansetron 4 mg disintegrating 4 mg PO Q8H PRN nausea and 08/27/23 tablet vomiting #10 tabs Allergies Allergy/AdvReac Type Severity Reaction Status Date / Time No Known Allergies Allergy Verified 08/26/23 13:02 Review of Systems 2 Constitutional: Constitutional: Reports chills, Reports fever(s) and Denies headache(s) Eyes: Eyes: Denies change in vision and Denies other (No redness.) ENT: Denies headache(s), Denies nasal congestion, Denies nasal discharge, Denies neck pain and Denies sore throat Cardiovascular: Cardiovascular: Denies chest pain, Denies palpitations, Denies dyspnea, Denies dyspnea on exertion and Denies orthopnea Respiratory: Respiratory: Denies cough, Denies dyspnea and Denies dyspnea on exertion Gastrointestinal: Gastrointestinal: Reports abdominal pain, Denies melena, Reports hematochezia, Denies coffee ground emesis, Denies constipation, Denies diarrhea, Reports nausea and Reports vomiting Genitourinary: Genitourinary: Denies dysuria and Denies urinary urgency Musculoskeletal: Musculoskeletal: Denies back pain, Denies muscle weakness, Denies neck pain and Denies numbness Integumentary/Breasts: Skin/Breast: Denies rash Neurologic: Denies headache(s), Denies focal weakness and Denies numbness Psychiatric: Psychiatric: Denies depression Endocrine: Endocrine: Denies palpitations PMFSH Past Medical History Medical History HTN (hypertension) Surgical History Hx of colonoscopy History of esophagogastroduodenoscopy (EGD) History of hysterectomy Family History Family History Father Diabetes Arthritis Hypertension Hypercholesteremia Cancer Mother Diabetes Hypertension Arthritis Cancer Son Asthma Son Asthma Heart problem Social History Social History Alcohol intake: never Patient Tobacco Use Status: Never used Tobacco Advance Directives: No Current occupational status: retired Physical Exam ED Vital Signs: Vital Signs - 24 hr 08/27/23 14:41 08/27/23 19:36 Temperature 97.2 F 98.1 F Pulse Rate 65 65 Respiratory Rate 18 18 Blood Pressure 150/66 H 119/65 Pulse Oximetry 98 97 Oxygen Delivery Method Room Air Room Air BMI result Body Mass Index 31.4 Const General: cooperative and no acute distress Orientation/consciousness: patient oriented x3 Resp Auscultation: clear to auscultation bilaterally Cardio Rate: regular rate Rhythm: regular rhythm GI Palpation (GI): Tenderness to palpation present (GI) and no guarding Skin General skin exam: no rashes or lesions noted Neuro General: patient oriented x3 Extrem General: No edema Course Course Course Narrative: RME- 53-year-old female presents for evaluation abdominal pain, nausea, vomiting. Symptoms started last night radiate around to her back. Plan for labs, UA. Will defer imaging to primary provider. Reevaluation(s) Reevaluation #1: Patient appears uncomfortable, no acute distress. Reviewed all labs, no acute process. Given the patient's symptoms and areas of tenderness on exam, check CT. Further evaluate for diverticulitis or other intra-abdominal pathology. IV fluids and antiemetics. Time: 16:22 Reevaluation #2: CT results returned, no acute process. I reviewed this with the patient at this time. She is currently receiving IV fluids and antiemetics. She reports feeling much better at this time. Discharge after fluids finish. Time: 18:20 Reevaluation #3: IV fluids completed. Patient resting comfortably at this time. No further questions at this time. Time: 19:40 Medications Administered Discontinued Medications Generic Name Dose Route Start Last Admin Trade Name Freq PRN Reason Stop Dose Admin Sodium Chloride 1,000 mls @ 999 mls/hr 08/27/23 16:15 08/27/23 18:42 Ns IV 08/27/23 17:15 Infused .Q1H1M LLUVIA Infusion Iohexol 85 ml 08/27/23 17:28 08/27/23 17:28 Iohexol 350 Mg/Ml 100 Ml Infus..Btl IV 08/27/23 17:29 85 ml ONCE ONE Administration Ondansetron HCl 4 mg 08/27/23 16:13 08/27/23 17:00 Ondansetron Hcl 4 Mg/2 Ml Vial IVPUSH 08/27/23 16:14 4 mg ONCE ONE Administration Medical Decision Making Medical Decision Making MDM Narrative: 53-year-old female with history of hypertension, IBS, 24 hours of abdominal pain nausea vomiting. Differential Diagnosis Differential Diagnoses: The differential diagnosis associated with the presentation includes Diverticulitis Colitis Bowel obstruction Constipation Lower GI bleed Nephrolithiasis Pyelonephritis Lab Data [facility] Lab Attestation statement: I reviewed the patient's lab results. 08/27/23 14:55 08/27/23 14:55 Labs: Lab Results 08/27/23 Range/Units 14:55 WBC 10.3 (4.8-10.8) X10*3/uL RBC 3.73 L (4.20-5.50) X10*6/uL Hgb 11.9 L (12.0-16.0) g/dl Hct 35.4 L (37.0-47.0) % MCV 94.9 (80.0-98.0) fL MCH 31.9 (27.0-33.0) pg MCHC 33.6 (31.0-35.0) g/dl RDW 11.9 (11.0-16.0) % Plt Count 312 (160-400) X10*3/uL MPV 10.4 (9.4-12.3) fL Immature Gran % (Auto) 0.4 (0.0-0.4) % Neut % (Auto) 69.1 (45-73) % Lymph % (Auto) 22.9 (20-40) % Churchill % (Auto) 6.7 (2-11) % Eos % (Auto) 0.7 (0-4) % Baso % (Auto) 0.2 (0-2) % Lymph # (Auto) 2.4 (1.2-4.9) X10*3/uL Churchill # (Auto) 0.7 (0.1-1.2) X10*3/uL Eos # (Auto) 0.1 (0.0-0.4) X10*3/uL Baso # (Auto) 0.0 (0.0-0.2) X10*3/uL Abs Immat Gran (auto) 0.04 H (0.00-0.03) X10*3/uL Absolute Neuts (auto) 7.1 (2.0-8.3) x10*3/uL Absolute Nucleated RBC 0.000 (0.0-0.012) X10*3/uL Nucleated RBC % (auto) 0.0 (0.0-0.2) /100WBC Sodium 139 (135-145) mmol/L Potassium 4.1 (3.3-5.1) mmol/L Chloride 108 (96-108) mmol/L Carbon Dioxide 24 (22-29) mmol/L Anion Gap 11 L (12-20) BUN 17 H (9-16) mg/dL Creatinine 0.76 (0.5-1.4) mg/dL Estim Creat Clear Calc 87.8 Estimated GFR > 60 Random Glucose 99 (60-115) mg/dL Calcium 9.5 (8.4-10.2) mg/dL Total Bilirubin 0.2 (0.0-1.0) mg/dL AST 15 (5-31) U/L ALT 15 (0-31) U/L Alkaline Phosphatase 85 (39-117) U/L Total Protein 7.6 (6.5-8.0) g/dL Albumin 4.0 (3.5-5.0) g/dL Lipase 27 (8-78) U/L Radiology Impression Discussion of test interpretation with radiology: I have reviewed the radiologist's reading. Radiologist Impression: [address] [address] [address] Scan Report Signed Patient: Lety Bates MR#: [id number] : 1970 Acct:[id number] Age/Sex: 53 / F ADM Date: 08/27/23 Loc: .ED Attending Dr: Ordering Physician: Tremaine Fonseca Date of Service: 08/27/23 Procedure(s): CT abdomen pelvis w IV con Accession Number(s): [id number] cc: Alvina Mccartney MD; Tremaine Fonseca~ EXAMINATION: CT ABDOMEN AND PELVIS WITH CONTRAST CLINICAL INFORMATION: Abdominal pain. COMPARISON: 09/24/2021. TECHNIQUE: Multidetector volumetric images were obtained from the superior aspect of the liver through the pubic symphysis following administration 85 mL of Omnipaque 350 intravenous contrast. Sagittal and coronal reformatted images were obtained on the technologist's workstation. Oral contrast: No This CT examination was performed using dose optimization techniques as appropriate, variously including the following: *Automated exposure control *Adjustment of mA and/or kV according to patient size (this includes techniques or standardized protocols for targeted exams where dose is matched to indication/reason for exam; i.e. extremities or head) *Use of iterative reconstruction technique DLP: Lower quadrant pain. mGy-cm FINDINGS: LUNG BASES: The visualized lung bases are unremarkable. LIVER, GALLBLADDER, AND BILIARY TREE: The liver is normal in size, shape, and attenuation. No focal hepatic lesion or biliary ductal dilatation is present. The gallbladder is unremarkable with no evidence of radiopaque gallstones, gallbladder wall thickening, or obvious pericholecystic inflammatory changes. PANCREAS: Unremarkable. SPLEEN: Unremarkable. ADRENAL GLANDS: There is a 1.1 cm low-density left adrenal nodule. KIDNEYS AND URETERS: The kidneys are normal in size, shape, and attenuation. No hydronephrosis, hydroureter, or calculi seen. No perinephric stranding. BLADDER: Unremarkable. GASTROINTESTINAL TRACT: The small and large bowel are unremarkable. The appendix is unremarkable. ABDOMINAL WALL: There is a small umbilical hernia containing fat. LYMPH NODES: Normal. VASCULAR: Unremarkable. PELVIC VISCERA: Unremarkable. OSSEOUS STRUCTURES: Unremarkable. CT/CT abdomen pelvis w IV con IMPRESSION: No significant abnormality. Fleischner guidelines were followed. Dictated By: Elder Ortega Signed By: <Electronically signed by Elder Ortega in OV> 08/27/231808 DD/ 28 TD/TT: Store Management Trainee: Discharge Plan Discharge Clinical Impression: Left lower quadrant abdominal pain Patient Disposition: Home, Self-Care Instructions: Abdominal Pain (ED) Additional Instructions: Rest. Avoid strenuous activity. Drink plenty of fluids. Zofran as directed for nausea. Follow-up with your primary care provider. Call this week to schedule a follow- up appointment. Return to the emergency department if you have any worsening of symptoms, or any concerns. Get well soon! Prescriptions: New ondansetron 4 mg tablet,disintegrating 4 mg PO Q8H PRN (Reason: nausea and vomiting) Qty: 10 0RF No Action famotidine 20 mg tablet 20 mg PO BID Qty: 90 2RF polyethylene glycol 3350 [Miralax] 17 gram/dose powder 17 g PO BID Qty: 510 2RF ondansetron HCl [Zofran] 4 mg tablet 4 mg PO Q8H PRN (Reason: nausea and vomiting) Qty: 14 0RF gabapentin 300 mg capsule 300 mg PO TID cholecalciferol (vitamin D3) [Vitamin D3] 25 mcg (1,000 unit) capsule 25 mcg PO QAM buspirone 15 mg tablet 30 mg PO loratadine 10 mg tablet 10 mg PO QAM zolpidem 10 mg tablet 10 mg PO BEDTIME amlodipine 10 mg tablet 10 mg PO QAM (DME) blood pressure test kit-large Kit See Rx Instructions .ROUTE DAILY Qty: 1 Rx Instructions: As directed duloxetine 60 mg capsule,delayed release(DR/EC) 60 mg PO BEDTIME sodium,potassium,mag sulfates [Suprep Bowel Prep Kit] 17.5-3.13-1.6 gram recon soln See Rx Instructions PO .COMPLEX Qty: 354 0RF Rx Instructions: DILUTE; drink 1/2 at 6-8 pm and half at 11 PM- 1AM dicyclomine 10 mg capsule 10 mg PO TID Qty: 90 0RF fluticasone propion-salmeterol 500-50 mcg/dose blister with device 1 ea inhalation meclizine 25 mg tablet 25 mg PO BID PRN (Reason: dizziness) Qty: 60 0RF lisinopril 10 mg tablet 10 mg PO DAILY Qty: 30 3RF
[2023-08-27 14:59] LABS: MANUAL DIFF FLAG NO
[2023-08-27 15:03] LABS: Basophils Percent Auto 0.2 % (0-2); Eosinophils Absolute Auto 0.1 X10*3/uL (0.0-0.4); Eosinophils Percent Auto 0.7 % (0-4); Hematocrit 35.4 % (37.0-47.0); Hemoglobin 11.9 g/dl (12.0-16.0); Imm Gran Abs Auto 0.04 X10*3/uL (0.00-0.03); Imm Gran Pct Auto 0.4 % (0.0-0.4); Lymphocytes Absolute Auto 2.4 X10*3/uL (1.2-4.9); Lymphocytes Percent Auto 22.9 % (20-40); Mean Corpuscular HGB Conc 33.6 g/dl (31.0-35.0); Mean Corpuscular Hemoglobin 31.9 pg (27.0-33.0); Mean Corpuscular Volume 94.9 fL (80.0-98.0); Mean Platelet Volume 10.4 fL (9.4-12.3); Monocytes Absolute Auto 0.7 X10*3/uL (0.1-1.2); Monocytes Percent Auto 6.7 % (2-11); Neutrophils Absolute Auto 7.1 x10*3/uL (2.0-8.3); Neutrophils Percent Auto 69.1 % (45-73); Platelet Count 312 X10*3/uL (160-400); Red Blood Count 3.73 X10*6/uL (4.20-5.50); Red Cell Distribution Width 11.9 % (11.0-16.0); White Blood Count 10.3 X10*3/uL (4.8-10.8)
[2023-08-27 15:17] LABS: Alanine Aminotransferase 15 U/L (0-31); Alkaline Phosphatase 85 U/L (39-117); Anion Gap 11 (12-20); Aspartate Amino Transferase 15 U/L (5-31); Bilirubin Total 0.2 mg/dL (0.0-1.0); Blood Urea Nitrogen 17 mg/dL (9-16); Calcium 9.5 mg/dL (8.4-10.2); Carbon Dioxide 24 mmol/L (22-29); Chloride 108 mmol/L (96-108); Creatinine Clr Calc Pharmacy 87.8; Estimated Glomerular Filt Rate > 60; Glucose Random 99 mg/dL (60-115); Lipase 27 U/L (8-78); Potassium 4.1 mmol/L (3.3-5.1); Sodium 139 mmol/L (135-145); Total Protein 7.6 g/dL (6.5-8.0)
--- NOTE | 2023-08-27 15:51 | PC.NURSE ---
pt reports abd pain since last night, diffuse across abdomen. Denies any trauma. Endorses nausea, but no N/V/D. Normal bowel movements. Does endorse frequency with urination as well as burning
[2023-08-27] MEDS: ondansetron HCL 4 MG/2 ML VIAL IVPUSH (17:00)
[2023-08-27] MEDS: 0.9 % Sodium Chloride 1,000 ML 999 ML IV (17:00)
[2023-08-27] MEDS: iohexoL 350 MG/ML 100 ML INFUS..BTL 85 ML IV (17:28)
[2023-08-27 19:36] VITALS: BP 119/65; PULSE 65; RESP 18; TEMP 36.7; O2SAT 97
== END 2023-08-27 19:53 | disposition home or self-care (01) ==
PROVIDERS: Physician Assistant; Emergency Provider Emergency Medicine; PCP Family Medicine
DX: R10.32 Left lower quadrant pain (principal); R11.2 Nausea with vomiting, unspecified; I10 Essential (primary) hypertension; K76.0 Fatty (change of) liver, not elsewhere classified; K58.9 Irritable bowel syndrome, unspecified; Z79.899 Other long term (current) drug therapy
CPT/HCPCS: 36415; 74177; 76705; 80053; 83690; 85025; 96361; 96374; 99284; J2405; Q9967

== ENCOUNTER 2023-09-20 13:47 | Outpatient (AMB) | payer OTHER, MEDICAID, SELFPAY ==
[2023-09-20 14:05] VITALS: BMI 31.4
--- NOTE | 2023-09-20 14:05 | A.OFFVIS_ITS ---
Intake Vital Signs 09/20/23 14:05 Height 5 ft 3 in Weight 177 lb BMI 31.4 Intake Visit Reasons: ov- right knee pain Intake Note: Lety samaniego 53 year old female presents today for a follow up of right knee pain. Patient reports left knee injection provided her relief and is requesting right knee cortisone injection. States pain gets worse with cold weather and will hear cracking in her left knee. Finds no relief with tylenol or motrin. Allergies No Known Allergies Allergy (Verified 09/20/23 14:10) HPI ov- right knee pain HPI Details 53-year-old female who returns to the [facility] today for a follow-up of right knee pain. She continues to have pain in her knee which is aggravated with cold weather. She also c/o hearing a cracking sound in her left knee. She finds no relief with Tylenol or Motrin. She had a left knee injection on 07/21/23 which provided her relief. She is interested in having a right knee injection today. She does not have a history of diabetes. [facility]LY [facility] Medical History HTN (hypertension) Surgical History Hx of colonoscopy History of esophagogastroduodenoscopy (EGD) History of hysterectomy Family History Father Diabetes Arthritis Hypertension Hypercholesteremia Cancer Mother Diabetes Hypertension Arthritis Cancer Son Asthma Son Asthma Heart problem Alcohol intake: never Patient Tobacco Use Status: Never used Tobacco Current occupational status: retired Review of Systems Const All systems reviewed & are unremarkable except as noted in HPI and below Physical Exam Vital Signs: BMI result Body Mass Index 31.4 Extrem Other: Right knee: Skin intact, no erythema or joint effusion. Lateral retropatellar tenderness present. Full ROM with crepitus. Negative Max?s. No ligamentous laxity. NVI. Office Procedures Joint Injection/Drain Joint Injection/Drain Primary Site: right knee Prep: site was prepped using aseptic technique, ethochloride spray was applied and injection warnings given Injected: 40 mg of, DepoMedrol, with 8 mL of, 1% plain lidocaine and in the joint Approach Used: anterolateral Procedure: The patient tolerated the procedure well and there was some relief with the local anesthesia Coding 98644 - Glenohumeral/Tronchanteric Bursa/Intraarticular Procedure code (CPT) selection complete Assessment & Plan Assessment & Plan (1) Osteoarthritis of knees, bilateral: Code(s): M17.0 - Bilateral primary osteoarthritis of knee Qualifiers: Osteoarthritis type: primary Qualified Code(s): M17.0 - Bilateral primary osteoarthritis of knee Plan We discussed options today which include steroid injection. They did consent to move forward with the right knee injection, which was tolerated well. I recommended rest, ice and elevation and OTC anti-inflammatories PRN for discomfort. If symptoms persist or worsens over the next 6-8 weeks, patient will contact the office, otherwise follow-up as needed. Patient Instructions: Scribed for Ariel Morocho PA-C, by Junior Vera auditor medical claims, on 09/20/2023 at 2:30 PM EST. Ariel Murillo PA-C, have personally reviewed and agree with the information entered by the scribe. Coding Level of Care Code Est Pt Level 3 (14237) Diagnoses Primary osteoarthritis of both knees M17.0 Osteoarthritis type: primary CPT Codes Coding - Joint 7: 68036 - Glenohumeral/Tronchanteric Bursa/Intraarticular ([id number])
== END 2023-09-20 15:13 | disposition home or self-care (01) ==
PROVIDERS: PCP Family Medicine; Visit Provider Physician Assistant
DX: M17.0 Bilateral primary osteoarthritis of knee (principal)
CPT/HCPCS: 20610; 99213

== ENCOUNTER → 2023-09-20 13:47 | Outpatient (BNVA) | payer OTHER, MEDICAID, SELFPAY | PROVIDERS: PCP Family Medicine; Visit Provider Physician Assistant | DX: M17.0 Bilateral primary osteoarthritis of knee (principal) | CPT/HCPCS: 20610; 99212; J1040 ==

== ENCOUNTER 2023-09-30 11:01 | Outpatient (AMB) | payer OTHER, MEDICAID, SELFPAY ==
[2023-09-30 11:11] VITALS: BP 130/82; PULSE 64; BMI 31.1
--- NOTE | 2023-09-30 11:11 | A.OFFVIS_ITS ---
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 Physics Professor Language: Edger Liner Name: bren [id number] Allergies No Known Allergies Allergy (Verified 09/30/23 11:14) Medication List - Last Reconciled 09/30/23 by PIERCE De La Cruz amlodipine 10 mg PO QAM blood pressure test kit-large As directed buspirone 30 mg PO cholecalciferol (vitamin D3) (Vitamin D3) 25 mcg PO QAM dicyclomine 10 mg PO TID duloxetine 60 mg PO BEDTIME famotidine 20 mg PO BID fluticasone propion-salmeterol 500-50 mcg/dose 1 ea inhalation gabapentin 300 mg PO TID lisinopril 10 mg PO DAILY loratadine 10 mg PO QAM meclizine 25 mg PO BID PRN ondansetron HCl (Zofran) 4 mg PO Q8H PRN polyethylene glycol 3350 (Miralax) 17 grams PO BID sodium,potassium,mag sulfates 17.5-3.13-1.6 gram (Suprep Bowel Prep Kit) DILUTE; drink 1/2 at 6-8 pm and half at 11 PM- 1AM zolpidem 10 mg PO BEDTIME HPI 5W follow up HPI Details Lety is a 53-year-old female with past medical history of hypertension, syncopal event earlier this year, dizziness who presents for cardiac follow-up. On last visit her HCTZ was stopped and changed to Lisinopril. Today she reports that she is having discomfort in her left arm. It hurts to move and raise up. She has arthritis in her knees and recently got an injection. She has had a few episodes of dizziness however not daily. She tells me stopping hydrochlorothiazide did not help her symptom. She takes meclizine when needed and it does help. No presyncope, syncope, falls. No chest discomfort at rest or with activity. She has had some shortness of breath and chest tightness with her history of asthma. No palpitations, PND, orthopnea or edema. Taking her meds as directed. [facility] Medical History HTN (hypertension) Surgical History Hx of colonoscopy History of esophagogastroduodenoscopy (EGD) History of hysterectomy Family History Father Diabetes Arthritis Hypertension Hypercholesteremia Cancer Mother Diabetes Hypertension Arthritis Cancer Son Asthma Son Asthma Heart problem Social History Alcohol intake: never Patient Tobacco Use Status: Never used Tobacco Current occupational status: retired Review of Systems Const All systems reviewed & are unremarkable except as noted in HPI and below ENT Reports dizziness Card Details: Left arm pain Denies chest pain, Denies chest pain at rest, Denies chest pain with activity, Denies rapid heart rate, Denies pedal edema, Denies edema, Denies leg edema, Denies lightheadedness, Denies palpitations, Reports dyspnea, Denies dyspnea on exertion and Denies orthopnea Resp Denies cough, Reports dyspnea and Denies dyspnea on exertion GI Denies hematochezia and Denies change in stool character Musc Denies abnormal gait, Denies limited range of motion, Denies muscle cramps, Denies muscle weakness, Denies numbness, Denies radiating pain into limb, Denies stiffness and Denies tingling Neuro Denies abnormal gait, Reports dizziness, Denies numbness and Denies tingling Endo Denies palpitations Physical Exam Vital Signs: BMI result Body Mass Index 31.1 Const General: cooperative, healthy appearing, comfortable and no acute distress Orientation/consciousness: patient oriented x3 Neck Neck: Yes normal visual inspection Resp Effort & Inspection: normal respiratory effort Auscultation: clear to auscultation bilaterally, no crackles, no rales, no rhonchi and no wheezes Cardio Jugular venous distension: no JVD Rate: regular rate Rhythm: regular rhythm Heart sounds: S1 normal heart sound present, S2 normal heart sound present, no murmurs and no rubs Neuro General: patient oriented x3 Extrem Other: Facial grimace with palpation of left shoulder. Pain with arc range of motion left arm. Both arms held out steadily in front of her without sagging. General: Yes normal to inspection and No no pedal edema Psych Appearance: grossly normal Mental Status: mental status grossly normal Speech and movement: Normal speech and movement present Office Procedures EKG Details: Today, read by me, normal sinus rhythm, no acute ST or T-wave abnormalities, rate 64 [id number], Complete Assessment & Plan Assessment & Plan (1) Lightheadedness: Code(s): R42 - Dizziness and giddiness Plan: Patient has reports dizziness/lightheadedness. Syncopal event when bending over 10/01/2022. No recurrent syncope since then. Continues to have dizziness which seems to come and go without clear pattern. She did have echocardiogram on 12/28/2022 which was normal. Cardiac event monitor on 12/28/22 for 30 days showed sinus rhythm, average heart rate 68, no significant arrhythmias. She is on hydrochlorothiazide and amlodipine for blood pressure control. At this time she continues to report symptoms of dizziness. Not orthostatic on last visit. On last visit I stopped hydrochlorothiazide and change to lisinopril for blood pressure control. My thought was that dehydration was contributing to her symptom. Today she reports no significant change. She says she has had a few episodes of lightheadedness that did improve with meclizine. It seems that her dizziness is more of a vertigo symptom. If persists she can discuss her dizziness with her PCP as well. (2) Syncope: Code(s): R55 - Syncope and collapse Qualifiers: Syncope type: unspecified Qualified Code(s): R55 - Syncope and collapse Plan: No recurrent episode (3) HTN (hypertension): Code(s): I10 - Essential (primary) hypertension Qualifiers: Hypertension type: primary hypertension Qualified Code(s): I10 - Essential (primary) hypertension Plan: Recheck done by me today 140/82. She tells me she has checked it at home and has been as high as 190 systolic. She is reporting intermittent headache which could correlate with high blood pressure reading. Will increase her lisinopril up to 20 mg daily. Will have her check labs in 1 week. Cardiology follow-up 6 weeks, sooner if needed. (4) Fatigue: Code(s): R53.83 - Other fatigue Qualifiers: Fatigue type: chronic, unspecified Qualified Code(s): R53.82 - Chronic fatigue, unspecified Plan: Reports of fatigue. She has new CPAP mask and reports compliance. Can further discuss with PCP. (5) Left shoulder pain: Code(s): M25.512 - Pain in left shoulder Plan: Reports of left arm pain. On examination discomfort seems to originate from her shoulder region. She grimaces with palpation of that region. She has limited range of motion. She has no noted weakness to the extremity. An EKG done today showing normal sinus rhythm with no acute ST or T-wave abnormalities. Her symptom seems more musculoskeletal in nature. Orders: Orders Basic Metabolic Panel Today I10 - Essential (primary) hypertension Medications: New lisinopril 20 mg PO DAILY 30 tabs 5RF Discontinued lisinopril Discontinued Reason: Doctor's Order 10 mg PO DAILY 30 tabs 3RF Patient Instructions: Time spent with chart review, documentation, interview, assessment Coding Level of Care Code Est Pt Level 3 (46909) Diagnoses Lightheadedness R42 Syncope, unspecified syncope type R55 Syncope type: unspecified Primary hypertension I10 Hypertension type: primary hypertension Chronic fatigue R53.82 Fatigue type: chronic, unspecified Left shoulder pain M25.512 CPT Codes EKG - CPT: [id number]-[id number], Complete ([id number]) Time Spent (min) 22
== END 2023-09-30 11:40 | disposition home or self-care (01) ==
PROVIDERS: PCP Family Medicine; Visit Provider Nurse Practitioner Family
DX: R42 Dizziness and giddiness (principal); R55 Syncope and collapse; I10 Essential (primary) hypertension; R53.82 Chronic fatigue, unspecified; M25.512 Pain in left shoulder
CPT/HCPCS: 93010; 99213

== ENCOUNTER → 2023-09-30 11:01 | Outpatient (BNVA) | payer OTHER, MEDICAID, SELFPAY | PROVIDERS: PCP Family Medicine; Visit Provider Nurse Practitioner Family | DX: I10 Essential (primary) hypertension (principal); R55 Syncope and collapse; R42 Dizziness and giddiness; R53.82 Chronic fatigue, unspecified; M25.512 Pain in left shoulder; Z82.49 Family history of ischemic heart disease and other diseases of the circulatory system; Z83.3 Family history of diabetes mellitus | CPT/HCPCS: 93005; 99212 ==

== ENCOUNTER 2023-11-11 09:42 | Outpatient (AMB) | payer OTHER, MEDICAID, SELFPAY ==
[2023-11-11 10:06] VITALS: BP 130/70; PULSE 73; BMI 31.6
--- NOTE | 2023-11-11 10:06 | MHC.OFFVIS ---
Intake Vital Signs 11/11/23 10:06 Height 5 ft 3 in Weight 178 lb 2.136 oz BMI 31.6 BP 130/70 Blood Pressure Location Lt brachial Position Sitting Pulse 73 Pulse Source Pulse Oximeter Intake Visit Reasons: 6 week follow-up Intake Note: 6 mnth f/up pt last nigt she had a faint episode, she had some chest pleasure pt also had covid back in October. 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 Carburizing Furnace Operator Name: /cyracom Accompanied by: Self / Same As Patient Allergies No Known Allergies Allergy (Verified 09/30/23 11:14) Medication List - Last Reconciled 11/11/23 by PIERCE De La Cruz amlodipine 10 mg PO QAM blood pressure test kit-large As directed buspirone 30 mg PO BID cholecalciferol (vitamin D3) (Vitamin D3) 25 mcg PO QAM dicyclomine 10 mg PO TID duloxetine 60 mg PO BEDTIME famotidine 20 mg PO BID fluticasone propion-salmeterol 45-21 mcg/actuation (Advair HFA) 2 puffs inhalation BID fluticasone propion-salmeterol 500-50 mcg/dose 1 ea inhalation BID gabapentin 300 mg PO TID lisinopril 20 mg PO DAILY loratadine 10 mg PO QAM meclizine 25 mg PO BID PRN ondansetron HCl (Zofran) 4 mg PO Q8H PRN polyethylene glycol 3350 (Miralax) 17 grams PO BID sodium,potassium,mag sulfates 17.5-3.13-1.6 gram (Suprep Bowel Prep Kit) DILUTE; drink 1/2 at 6-8 pm and half at 11 PM- 1AM zolpidem 10 mg PO BEDTIME HPI 6 week follow-up HPI Details Lety is a 53-year-old female with past medical history of hypertension, syncopal event earlier this year, dizziness who presents for cardiac follow-up after adjustment in her blood pressure medications. Today she reports that she has not been feeling well recently. She did have COVID a few weeks ago and feels that she has not fully recovered. She describes having body aches, chills, no fever. She states that a few days ago a cabinet fell off her wall and landed on her foot. This caused her significant discomfort and she describes having a syncopal event. She has bilateral knee pain which she states is from arthritis. She has discomfort in moving her arms and shoulders. No chest area discomfort with ambulation. She reports that she is mostly sedentary. No shortness of breath, PND, orthopnea or edema. Taking meds as directed. 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 [facility] Medical History Insomnia Anxiety Depression Syncope Mild intermittent asthma NAFLD (nonalcoholic fatty liver disease) Vertigo Sleep apnea IBS (irritable bowel syndrome) Arthritis HTN (hypertension) Surgical History Hx of colonoscopy History of esophagogastroduodenoscopy (EGD) History of hysterectomy Family History Father Diabetes Arthritis Hypertension Hypercholesteremia Cancer Mother Diabetes Hypertension Arthritis Cancer Son Asthma Son Asthma Heart problem Social History Alcohol intake: never Patient Tobacco Use Status: Never used Tobacco Current occupational status: retired Review of Systems Const All systems reviewed & are unremarkable except as noted in HPI and below Reports chills, Reports fatigue, Reports fever(s), Denies frequent falls, Reports weakness, Denies weight gain and Denies weight loss ENT Denies dizziness Card Reports chest pain, Denies leg edema, Denies lightheadedness, Denies palpitations, Denies dyspnea and Reports dyspnea on exertion Resp Reports cough, Denies dyspnea and Reports dyspnea on exertion GI Denies hematochezia Musc Denies abnormal gait, Reports muscle weakness, Denies numbness, Denies radiating pain into limb and Denies tingling Neuro Denies abnormal gait, Denies dizziness, Denies frequent falls, Denies numbness, Denies tingling and Reports weakness Endo Reports fatigue and Denies palpitations Physical Exam Vital Signs: Last Vital Signs Pulse 73 11/11/23 10:06 BP 130/70 11/11/23 10:06 BMI result Body Mass Index 31.6 Const General: cooperative, no acute distress and ill appearing Orientation/consciousness: patient oriented x3 Neck Neck: Yes normal visual inspection Resp Effort & Inspection: normal respiratory effort Auscultation: clear to auscultation bilaterally, no rales, no rhonchi and no wheezes Cardio Jugular venous distension: no JVD Rate: regular rate Rhythm: regular rhythm Heart sounds: S1 normal heart sound present, S2 normal heart sound present, no murmurs and no rubs Neuro General: patient oriented x3 Extrem General: Yes normal to inspection and No no pedal edema Psych Appearance: grossly normal Mental Status: mental status grossly normal Speech and movement: Normal speech and movement present Assessment & Plan Assessment & Plan (1) Lightheadedness: Code(s): R42 - Dizziness and giddiness Plan: Prior reports dizziness/lightheadedness. Syncopal event when bending over 10/01/2022. Now reports having a syncopal event a few days ago when a cabinet fell on her foot. Her prior syncope was thought to be blood pressure related. This most recent episode sounds like it could be vasovagal. She did have echocardiogram on 12/28/2022 which was normal. Cardiac event monitor on 12/28/22 for 30 days showed sinus rhythm, average heart rate 68, no significant arrhythmias. Blood pressure is normal range today. She is not orthostatic on examination done by me. Her blood pressure actually jorge alberto to 140/72 with standing. She currently describes symptoms of illness including body aches and chills. She describes having COVID a few weeks ago. Will hold off on any further testing at this time. Reviewed need for good hydration, use caution when going sitting to standing. She does have known history of vertigo and has meclizine that she can use if needed for that symptom. Cardiology follow-up in 3 months, sooner if needed. Emergency care if ever needed for concerning symptoms. (2) Syncope: Code(s): R55 - Syncope and collapse Qualifiers: Syncope type: unspecified Qualified Code(s): R55 - Syncope and collapse Plan: As above (3) HTN (hypertension): Code(s): I10 - Essential (primary) hypertension Qualifiers: Hypertension type: primary hypertension Qualified Code(s): I10 - Essential (primary) hypertension Plan: Normal range today. Not orthostatic. Continue amlodipine and lisinopril. (4) Left shoulder pain: Code(s): M25.512 - Pain in left shoulder Plan: Reports of left arm pain and numbness, not new. On examination discomfort seems to originate from her shoulder region. She grimaces with palpation of that region. She has limited range of motion. She has no noted weakness to the extremity. An EKG done last visit showing normal sinus rhythm with no acute ST or T-wave abnormalities. Her symptom seems more musculoskeletal in nature. Plan Time spent on chart review, documentation, interview and assessment Coding Level of Care Code Est Pt Level 3 (81323) Diagnoses Lightheadedness R42 Syncope, unspecified syncope type R55 Syncope type: unspecified Primary hypertension I10 Hypertension type: primary hypertension Left shoulder pain M25.512 Time Spent (min) 22
== END 2023-11-11 10:36 | disposition home or self-care (01) ==
PROVIDERS: PCP Family Medicine; Visit Provider Nurse Practitioner Family
DX: R42 Dizziness and giddiness (principal); R55 Syncope and collapse; I10 Essential (primary) hypertension; M25.512 Pain in left shoulder
CPT/HCPCS: 99213

== ENCOUNTER → 2023-11-11 09:42 | Outpatient (BNVA) | payer OTHER, MEDICAID, SELFPAY | PROVIDERS: PCP Family Medicine; Visit Provider Nurse Practitioner Family | DX: R42 Dizziness and giddiness (principal); R55 Syncope and collapse; I10 Essential (primary) hypertension; M25.512 Pain in left shoulder | CPT/HCPCS: 99212 ==

== ENCOUNTER 2023-12-01 13:56 | Outpatient (REF) | payer OTHER, SELFPAY ==
--- NOTE | ~2023-12-01 | MM_ITS ---
EXAMINATION: MM SCREENING DIGITAL BREAST TOMOSYNTHESIS, BILATERAL CLINICAL INFORMATION: Screening. Asymptomatic. COMPARISON: Mammography: This study is compared with prior exams dating back to 2018. TECHNIQUE: Digital breast tomosynthesis is performed in both the craniocaudal and mediolateral oblique views along with computer-aided detection (CAD). Synthesized 2D images are generated from the tomosynthesis. FINDINGS: There are scattered areas of fibroglandular density (ACR BI-RADS breast composition Category b). There are no significant masses, abnormal calcifications, or other abnormalities. In the lateral aspect of the left breast, there is unchanged, coarsely calcifying 22 cm macrolobulated mass containing a tissue marker. This represents a site of prior benign percutaneous biopsy. MM/MM tomosynthesis screening BI IMPRESSION: No mammographic evidence of malignancy. ASSESSMENT: BI-RADS BI-RADS 2 - Benign Findings RECOMMENDATION: Routine annual mammography screening. 1 year F/U This examination should not preclude the clinical evaluation of a suspicious palpable abnormality. This patient's information was entered into a reminder system with a target due date for their next mammogram.
== END 2023-12-01 13:57 | disposition home or self-care (01) ==
LOC: HO.MAMMO 13:56
PROVIDERS: PCP Family Medicine; Visit Provider Family Medicine
DX: Z12.31 Encounter for screening mammogram for malignant neoplasm of breast (principal)
CPT/HCPCS: 77063; 77067

== ENCOUNTER → 2023-12-01 14:45 | Outpatient (BNV) | payer OTHER, SELFPAY | PROVIDERS: PCP Family Medicine; Visit Provider Radiology Diagnostic Radiology | DX: Z12.31 Encounter for screening mammogram for malignant neoplasm of breast (principal) | CPT/HCPCS: 77063; 77067 ==

== ENCOUNTER 2024-02-10 09:40 | Outpatient (AMB) | payer OTHER, MEDICAID, SELFPAY ==
[2024-02-10 10:30] VITALS: BP 130/72; PULSE 68; BMI 31.7
--- NOTE | 2024-02-10 10:30 | A.OFFVIS_ITS ---
Intake Vital Signs 02/10/24 10:30 Height 5 ft 3 in Weight 179 lb 0.246 oz BMI 31.7 BP 130/72 Blood Pressure Location Lt brachial Position Sitting Pulse 68 Pulse Source Pulse Oximeter Intake Visit Reasons: 3 month follow-up Floor Helper Required: No Allergies No Known Allergies Allergy (Verified 02/10/24 10:33) Medication List - Last Reconciled 02/10/24 by PIERCE De La Cruz amlodipine 10 mg PO QAM blood pressure test kit-large As directed buspirone 30 mg PO BID cholecalciferol (vitamin D3) (Vitamin D3) 25 mcg PO QAM dicyclomine 10 mg PO TID duloxetine 60 mg PO BEDTIME fluticasone propion-salmeterol 45-21 mcg/actuation (Advair HFA) 2 puffs inhalation BID fluticasone propion-salmeterol 500-50 mcg/dose 1 ea inhalation BID gabapentin 300 mg PO TID lisinopril 20 mg PO DAILY loratadine 10 mg PO QAM meclizine 25 mg PO BID PRN ondansetron HCl (Zofran) 4 mg PO Q8H PRN polyethylene glycol 3350 17 grams PO BID propranolol 80 mg PO BID sodium,potassium,mag sulfates 17.5-3.13-1.6 gram (Suprep Bowel Prep Kit) DILUTE; drink 1/2 at 6-8 pm and half at 11 PM- 1AM zolpidem 10 mg PO BEDTIME HPI 3 month follow-up HPI Details Lety is a 53-year-old female with past medical history of hypertension, syncope, dizziness who presents for cardiac follow-up. Today she reports that since her last visit she has had at least 2 syncopal events. She says that she was standing in the bathroom and became sweaty. The she then says she passed out. She is unsure how long she was out. Upon awakening she continued to not feel well for some time. Another episode occurred when she was sitting. She said she again got hot and sweaty then had syncope. She has not aware of any triggers to these events. She tells me she has been maintaining good hydration. No chest discomfort at rest or with activity. No palpitations, shortness of breath, PND, orthopnea or edema. Taking meds as directed. 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 [facility] Medical History Insomnia Anxiety Depression Syncope Mild intermittent asthma NAFLD (nonalcoholic fatty liver disease) Vertigo Sleep apnea IBS (irritable bowel syndrome) Arthritis HTN (hypertension) Surgical History Hx of colonoscopy History of esophagogastroduodenoscopy (EGD) History of hysterectomy Family History Father Diabetes Arthritis Hypertension Hypercholesteremia Cancer Mother Diabetes Hypertension Arthritis Cancer Son Asthma Son Asthma Heart problem Social History Alcohol intake: never Patient Tobacco Use Status: Never used Tobacco Current occupational status: retired Review of Systems Const All systems reviewed & are unremarkable except as noted in HPI and below ENT Details: syncope episodes Reports dizziness Card Denies chest pain, Denies chest pain at rest, Denies chest pain with activity, Denies rapid heart rate, Denies pedal edema, Denies edema, Denies leg edema, Reports lightheadedness, Denies palpitations, Denies dyspnea, Denies dyspnea on exertion and Denies orthopnea Resp Denies cough, Denies dyspnea and Denies dyspnea on exertion GI Denies hematochezia and Denies change in stool character Musc Details: joint pain Reports abnormal gait, Reports limited range of motion, Reports muscle cramps, Denies muscle weakness, Denies numbness, Denies radiating pain into limb, Denies stiffness and Denies tingling Neuro Reports abnormal gait, Reports dizziness, Denies numbness and Denies tingling Endo Denies palpitations Physical Exam Vital Signs: Last Vital Signs Pulse 68 02/10/24 10:30 BP 130/72 02/10/24 10:30 BMI result Body Mass Index 31.7 Const General: cooperative, healthy appearing, comfortable and no acute distress Orientation/consciousness: patient oriented x3 HEENT Head: Yes normal to inspection Eyes Sclerae: sclerae normal Neck Neck: Yes normal visual inspection and Yes no JVD Carotids: normal carotid upstroke Chest Chest palpation & inspection: normal inspection of the chest Resp Effort & Inspection: normal respiratory effort Auscultation: clear to auscultation bilaterally, no rales, no rhonchi and no wheezes Cardio Jugular venous distension: no JVD Rate: regular rate Rhythm: regular rhythm Heart sounds: S1 normal heart sound present, S2 normal heart sound present, no murmurs and no rubs Neuro General: patient oriented x3 Extrem General: Yes normal to inspection, No no pedal edema and No calf tenderness Psych Appearance: grossly normal Mental Status: mental status grossly normal Speech and movement: Normal speech and movement present Assessment & Plan Assessment & Plan (1) Lightheadedness: Code(s): R42 - Dizziness and giddiness Plan: Prior reports dizziness/lightheadedness. Syncopal event when bending over 10/01/2022 which was thought to be blood pressure related. Syncopal event in November after a cabinet fell on her foot which sounded more vasovagal. Now she reports 2 more episodes which were preceded by getting diaphoretic then having loss of consciousness. She has no known triggers to these episodes. Again this sounds like it could be vasovagal. She did have echocardiogram on 12/28/2022 which was normal. Cardiac event monitor on 12/28/22 for 30 days showed sinus rhythm, average heart rate 68, no significant arrhythmias. Blood pressure is normal range today. She is not orthostatic on examination done by me. Blood pressure sitting 130/76, standing 128/80. Will order a tilt-table test for further evaluation. Continue good hydration, use caution when going sitting to standing. She does have known history of vertigo and has meclizine that she can use if needed for that symptom. Cardiology follow-up in 1 month, sooner if needed. Emergency care if ever needed for concerning symptoms. (2) Syncope: Code(s): R55 - Syncope and collapse Qualifiers: Syncope type: unspecified Qualified Code(s): R55 - Syncope and collapse Plan: As above (3) HTN (hypertension): Code(s): I10 - Essential (primary) hypertension Qualifiers: Hypertension type: primary hypertension Qualified Code(s): I10 - Essential (primary) hypertension Plan: Normal range today. Not orthostatic. Continue amlodipine and lisinopril. Plan Time spent on chart review, documentation, interview and assessment Orders: Orders ECG Tilt Table Test Today I10 - Essential (primary) hypertension, R42 - Dizziness and giddiness, R55 - Syncope and collapse Coding Level of Care Code Est Pt Level 4 (50540) Diagnoses Lightheadedness R42 Syncope, unspecified syncope type R55 Syncope type: unspecified Primary hypertension I10 Hypertension type: primary hypertension Time Spent (min) 30
== END 2024-02-10 11:09 | disposition home or self-care (01) ==
PROVIDERS: PCP Family Medicine; Referring Provider Family Medicine; Visit Provider Nurse Practitioner Family
DX: R42 Dizziness and giddiness (principal); R55 Syncope and collapse; I10 Essential (primary) hypertension
CPT/HCPCS: 99214

== ENCOUNTER → 2024-02-10 09:40 | Outpatient (BNVA) | payer OTHER, MEDICAID, SELFPAY | PROVIDERS: PCP Family Medicine; Visit Provider Nurse Practitioner Family | DX: R42 Dizziness and giddiness (principal); R55 Syncope and collapse; I10 Essential (primary) hypertension | CPT/HCPCS: 99212 ==

== ENCOUNTER 2024-03-16 08:46 | Outpatient (AMB) | payer OTHER, MEDICAID, SELFPAY ==
[2024-03-16 08:57] VITALS: BP 130/80; PULSE 77; BMI 31.2
--- NOTE | 2024-03-16 08:57 | A.OFFVIS_ITS ---
Vital Signs 03/16/24 08:57 Height 5 ft 3 in Weight 176 lb 5.917 oz BMI 31.2 BP 130/80 Blood Pressure Location Lt brachial Position Sitting Pulse 77 Pulse Source Pulse Oximeter Intake Visit Reasons: 4 wk fu after tilt table Underwriting Intern Required: Yes Underwriting Intern Language: Mobile Phone Salesperson Name: bren gallardo [phone] Allergies No Known Allergies Allergy (Verified 03/16/24 08:59) Medication List - Last Reconciled 03/16/24 by PIERCE De La Cruz amlodipine 10 mg PO QAM blood pressure test kit-large As directed buspirone 30 mg PO BID cholecalciferol (vitamin D3) (Vitamin D3) 25 mcg PO QAM dicyclomine 10 mg PO TID duloxetine 60 mg PO BEDTIME duloxetine 30 mg PO QAM famotidine 20 mg PO BID fluticasone propion-salmeterol 45-21 mcg/actuation (Advair HFA) 2 puffs inhalation BID fluticasone propion-salmeterol 500-50 mcg/dose 1 ea inhalation BID gabapentin 300 mg PO TID hydrochlorothiazide 25 mg PO QAM lisinopril 20 mg PO QAM loratadine 10 mg PO QAM meclizine 25 mg PO BID PRN ondansetron HCl (Zofran) 4 mg PO Q8H PRN polyethylene glycol 3350 17 grams PO BID propranolol 80 mg PO BID sodium,potassium,mag sulfates 17.5-3.13-1.6 gram (Suprep Bowel Prep Kit) DILUTE; drink 1/2 at 6-8 pm and half at 11 PM- 1AM zolpidem 10 mg PO BEDTIME HPI HPI 4 wk fu after tilt table: Details: Lety is a 53-year-old female with past medical history of hypertension, syncope, dizziness who presents for cardiac follow-up after recent tilt-table test. Today she reports that she had 1 episode of feeling dizzy and falling in her bathroom since last visit. She says she sustained an injury to her left knee and is currently ambulating with a limp. She does not recall any loss of consciousness. She tells me she has frequent dizziness. This symptom is worse when she turns her head [id number] and when she rolls over in bed. She tells me she also notices it when she is driving and has to turn her head. No chest discomfort, shortness of breath, palpitations, presyncope, syncope, PND, orthopnea or edema. Taking meds as directed. 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 [facility], [facility] Medical History Insomnia Anxiety Depression Syncope Mild intermittent asthma NAFLD (nonalcoholic fatty liver disease) Vertigo Sleep apnea IBS (irritable bowel syndrome) Arthritis HTN (hypertension) Surgical History Hx of colonoscopy History of esophagogastroduodenoscopy (EGD) History of hysterectomy Family History Father Diabetes Arthritis Hypertension Hypercholesteremia Cancer Mother Diabetes Hypertension Arthritis Cancer Son Asthma Son Asthma Heart problem Social History Alcohol intake: never Patient Tobacco Use Status: Never used Tobacco Current occupational status: retired Review of Systems Const All systems reviewed & are unremarkable except as noted in HPI and below ENT Reports dizziness Card Denies chest pain, Denies chest pain at rest, Denies chest pain with activity, Denies rapid heart rate, Denies pedal edema, Denies edema, Denies leg edema, Denies lightheadedness, Denies palpitations, Denies dyspnea, Denies dyspnea on exertion and Denies orthopnea Resp Denies cough, Denies dyspnea and Denies dyspnea on exertion GI Denies hematochezia and Denies change in stool character Musc Denies abnormal gait, Reports limited range of motion, Reports muscle cramps, Denies muscle weakness, Denies numbness, Denies radiating pain into limb, Denies stiffness and Denies tingling Neuro Denies abnormal gait, Reports dizziness, Denies numbness and Denies tingling Endo Denies palpitations Physical Exam Vital Signs: Last Vital Signs Pulse 77 03/16/24 08:57 BP 130/80 03/16/24 08:57 BMI result Body Mass Index 31.2 Const General: cooperative, healthy appearing, comfortable and no acute distress Orientation/consciousness: patient oriented x3 HEENT Head: Yes normal to inspection Eyes Sclerae: sclerae normal Neck Neck: Yes normal visual inspection and Yes no JVD Carotids: normal carotid upstroke Chest Chest palpation & inspection: normal inspection of the chest Resp Effort & Inspection: normal respiratory effort Auscultation: clear to auscultation bilaterally, no rales, no rhonchi and no wheezes Cardio Jugular venous distension: no JVD Rate: regular rate Rhythm: regular rhythm Heart sounds: S1 normal heart sound present, S2 normal heart sound present, no murmurs and no rubs Neuro General: patient oriented x3 Extrem Other: left knee pain from fall General: Yes normal to inspection, No no pedal edema and No calf tenderness Psych Appearance: grossly normal Mental Status: mental status grossly normal Speech and movement: Normal speech and movement present Assessment & Plan Assessment & Plan (1) Lightheadedness: Code(s): R42 - Dizziness and giddiness Category: Medical Plan: Prior reports dizziness/lightheadedness. Syncopal event when bending over 10/01/2022 which was thought to be blood pressure related. Syncopal event in November after a cabinet fell on her foot which sounded more vasovagal. On last visit she reported 2 more episodes which were preceded by getting diaphoretic then having loss of consciousness. She has no known triggers to these episodes. Presumed to have vasovagal syncope. She did have echocardiogram on 12/28/2022 which was normal. Cardiac event monitor on 12/28/22 for 30 days showed sinus rhythm, average heart rate 68, no significant arrhythmias. Blood pressure is has been normal range. She was not orthostatic on prior visit. A tilt-table test was completed on 03/13/2024 showing negative study for neurocardiogenic syncope. Results reviewed with her in detail. Since last visit she describes 1 episode where she became lightheaded and fell. Patient does have mobility issues from fibromyalgia which may have contributed. She also is describing symptoms of lightheadedness when turning head [id number] which sounds more like vertigo. No clear cardiac finding for her syncope. She does have known history of vertigo and has meclizine that she can use if needed for that symptom. Continue with good hydration, use much caution when sitting to standing, use ambulatory assistive devices if needed. Do not drive if feeling lightheaded. Cardiology follow-up 6 months, sooner if needed. Emergency care if ever needed for concerning symptoms. (2) Syncope: Code(s): R55 - Syncope and collapse Category: Medical Qualifiers: Syncope type: unspecified Qualified Code(s): R55 - Syncope and collapse Plan: As above (3) HTN (hypertension): Code(s): I10 - Essential (primary) hypertension Category: Medical Qualifiers: Hypertension type: primary hypertension Qualified Code(s): I10 - Essential (primary) hypertension Plan: Normal range today. Not orthostatic. Continue amlodipine and lisinopril. Plan Time spent on chart review, documentation, interview and assessment Coding Level of Care Code Est Pt Level 3 (51374) Diagnoses Lightheadedness R42 Syncope, unspecified syncope type R55 Syncope type: unspecified Primary hypertension I10 Hypertension type: primary hypertension Time Spent (min) 24
== END 2024-03-16 09:28 | disposition home or self-care (01) ==
PROVIDERS: PCP Family Medicine; Visit Provider Nurse Practitioner Family
DX: R42 Dizziness and giddiness (principal); R55 Syncope and collapse; I10 Essential (primary) hypertension
CPT/HCPCS: 99213

== ENCOUNTER → 2024-03-16 08:46 | Outpatient (BNVA) | payer OTHER, MEDICAID, SELFPAY | PROVIDERS: PCP Family Medicine; Visit Provider Nurse Practitioner Family | DX: R42 Dizziness and giddiness (principal); R55 Syncope and collapse; I10 Essential (primary) hypertension | CPT/HCPCS: 99212 ==

== ENCOUNTER 2024-04-04 06:34 | Day surgery (SDC) | payer OTHER, MEDICAID, SELFPAY ==
[2023-10-19 10:52] VITALS: BMI 31.0
--- NOTE | 2023-10-20 09:36 | HO.ANESPROP2 ---
HPI - Anesthesia Eval Consult details Narrative: 53yo F for Upper Endoscopy and Colonoscopy [place] [facility] [place]. Last office visit 09/30/23. Pt still reports symptoms after bp med changes. Thought to be vertigo and rec'd f/u with PCP. Also left arm pain thought to be msk by cardiology. No further w/u. [facility] Active Problems Active Problems: All Active Problems (Updated 10/19/23 @ 11:00 by Leidy Patel RN) Left shoulder pain (Acute) Lightheadedness (Acute) Osteoarthritis of knees, bilateral (Acute) Fatigue (Acute) NAFLD (nonalcoholic fatty liver disease) (Acute) Syncope (Acute) IBS (irritable bowel syndrome) (Acute) Gallbladder polyp (Acute) HTN (hypertension) (Acute) Past Medical History Medical History (Updated 10/19/23 @ 11:00 by Leidy Patel RN) Insomnia Anxiety Depression Syncope Mild intermittent asthma NAFLD (nonalcoholic fatty liver disease) Vertigo Sleep apnea IBS (irritable bowel syndrome) Arthritis HTN (hypertension) Family History Family History Father Diabetes Arthritis Hypertension Hypercholesteremia Cancer Mother Diabetes Hypertension Arthritis Cancer Son Asthma Son Asthma Heart problem Surgical History Surgical History Hx of colonoscopy History of esophagogastroduodenoscopy (EGD) History of hysterectomy Social History Social History Alcohol intake: never Patient Tobacco Use Status: Never used Tobacco Current occupational status: retired [employer] Allergies Allergy/AdvReac Type Severity Reaction Status Date / Time No Known Allergies Allergy Verified 09/30/23 11:14 Home Medications Medication Instructions Recorded Confirmed Last Taken Type amlodipine 10 mg tablet 10 mg PO QAM 04/03/22 10/19/23 Unknown History blood pressure test kit-large #1 ea 04/03/22 09/30/23 Unknown History buspirone 15 mg tablet 30 mg PO BID 04/03/22 10/19/23 Unknown History cholecalciferol (vitamin D3) 25 25 mcg PO QAM 04/03/22 10/19/23 Unknown History mcg (1,000 unit) capsule (Vitamin D3) loratadine 10 mg tablet 10 mg PO QAM allergies 04/03/22 10/19/23 Unknown History zolpidem 10 mg tablet 10 mg PO BEDTIME 04/03/22 10/19/23 Unknown History gabapentin 300 mg capsule 300 mg PO TID 02/10/23 10/19/23 Unknown History fluticasone 500 mcg-salmeterol 50 1 ea inhalation BID 04/09/23 10/19/23 Unknown History mcg/dose blistr powdr for inhalation duloxetine 60 mg capsule,delayed 60 mg PO BEDTIME 08/13/23 10/19/23 Unknown History release Exam Height,Weight and Vital Signs: Height 5 ft 3 in Weight 79.379 kg Pertinent Lab Results Pertinent Lab Results: Laboratory Tests 08/27/23 14:55 WBC 10.3 Hgb 11.9 L Hct 35.4 L Plt Count 312 Sodium 139 Potassium 4.1 Chloride 108 Carbon Dioxide 24 BUN 17 H Creatinine 0.76 Narrative Narrative: EKG normal sinus rhythm, no acute ST or T-wave abnormalities, rate 64 echocardiogram on 12/28/2022 which was normal. Cardiac event monitor on 12/28/22 for 30 days showed sinus rhythm, average heart rate 68, no significant arrhythmias. Assessment and Plan Assessment Anesthesia Assessment: Chart Reviewed
--- NOTE | 2024-04-03 09:33 | HO.ANESPROP2 ---
Documented by User: Carmel Sandhu NP 04/03/24 09:34 HPI - Anesthesia Eval Consult details Narrative: 53yo F for Upper Endoscopy and Colonoscopy PMF Active Problems Active Problems: All Active Problems Left shoulder pain (Acute) Lightheadedness (Acute) Osteoarthritis of knees, bilateral (Acute) Fatigue (Acute) NAFLD (nonalcoholic fatty liver disease) (Acute) Syncope (Acute) IBS (irritable bowel syndrome) (Acute) Gallbladder polyp (Acute) HTN (hypertension) (Acute) Past Medical History Medical History Insomnia Anxiety Depression Syncope Mild intermittent asthma NAFLD (nonalcoholic fatty liver disease) Vertigo Sleep apnea IBS (irritable bowel syndrome) Arthritis HTN (hypertension) Family History Family History Father Diabetes Arthritis Hypertension Hypercholesteremia Cancer Mother Diabetes Hypertension Arthritis Cancer Son Asthma Son Asthma Heart problem Surgical History Surgical History Hx of colonoscopy History of esophagogastroduodenoscopy (EGD) History of hysterectomy Social History Social History Alcohol intake: never Patient Tobacco Use Status: Never used Tobacco Use of substances other than those prescribed or required for medical reasons: No Are you DNR?: No Advance Directives: No Advance Directives Information Provided: Yes Current occupational status: retired [employer] Allergies Allergy/AdvReac Type Severity Reaction Status Date / Time No Known Allergies Allergy Verified 03/16/24 08:59 Home Medications ?Medication ?Instructions ?Recorded ?Confirmed ?Last Taken ?Type amlodipine 10 mg tablet 10 mg PO QAM 04/03/22 04/04/24 04/04/24 History blood pressure test kit-large #1 ea 04/03/22 03/16/24 Unknown History buspirone 15 mg tablet 30 mg PO BID 04/03/22 04/04/24 Unknown History cholecalciferol (vitamin D3) 25 25 mcg PO QAM 04/03/22 04/04/24 Unknown History mcg (1,000 unit) capsule (Vitamin D3) loratadine 10 mg tablet 10 mg PO QAM allergies 04/03/22 04/04/24 Unknown History zolpidem 10 mg tablet 10 mg PO BEDTIME 04/03/22 04/04/24 Unknown History gabapentin 300 mg capsule 300 mg PO TID 02/10/23 04/04/24 Unknown History fluticasone 500 mcg-salmeterol 50 1 ea inhalation BID 04/09/23 04/04/24 Unknown History mcg/dose blistr powdr for inhalation duloxetine 60 mg capsule,delayed 60 mg PO BEDTIME 08/13/23 04/04/24 Unknown History release fluticasone propionate 45 2 puff inhalation BID 11/11/23 04/04/24 Unknown History mcg-salmeterol 21 mcg/actuation HFA inhaler (Advair HFA) propranolol 60 mg tablet 80 mg PO BID 02/10/24 04/04/24 Unknown History duloxetine 30 mg capsule,delayed 30 mg PO QAM 03/16/24 04/04/24 Unknown History release famotidine 20 mg tablet 20 mg PO BID 03/16/24 04/04/24 Unknown History hydrochlorothiazide 25 mg tablet 25 mg PO QAM 03/16/24 04/04/24 Unknown History Exam Height,Weight and Vital Signs: Height 5 ft 3 in Weight 79.379 kg Assessment and Plan Assessment Anesthesia Assessment: Chart Reviewed Documented by User: Neil Lara MD 04/04/24 07:46 COUNTS INCLUDE 234 BEDS AT THE [facility] Past Medical History Medical History Insomnia Anxiety Depression Syncope Mild intermittent asthma NAFLD (nonalcoholic fatty liver disease) Vertigo Sleep apnea IBS (irritable bowel syndrome) Arthritis HTN (hypertension) Family History Family History Father Diabetes Arthritis Hypertension Hypercholesteremia Cancer Mother Diabetes Hypertension Arthritis Cancer Son Asthma Son Asthma Heart problem Family history of problems with anesthesia: No Surgical History Surgical History Hx of colonoscopy History of esophagogastroduodenoscopy (EGD) History of hysterectomy History of Problems with Anesthesia: No Social History Social History Alcohol intake: never Patient Tobacco Use Status: Never used Tobacco Use of substances other than those prescribed or required for medical reasons: No Are you DNR?: No Advance Directives: No Advance Directives Information Provided: Yes Current occupational status: retired Meds Allergies Allergy/AdvReac Type Severity Reaction Status Date / Time No Known Allergies Allergy Verified 03/16/24 08:59 Home Medications ?Medication ?Instructions ?Recorded ?Confirmed ?Last Taken ?Type amlodipine 10 mg tablet 10 mg PO QAM 04/03/22 04/04/24 04/04/24 History blood pressure test kit-large #1 ea 04/03/22 03/16/24 Unknown History buspirone 15 mg tablet 30 mg PO BID 04/03/22 04/04/24 Unknown History cholecalciferol (vitamin D3) 25 25 mcg PO QAM 04/03/22 04/04/24 Unknown History mcg (1,000 unit) capsule (Vitamin D3) loratadine 10 mg tablet 10 mg PO QAM allergies 04/03/22 04/04/24 Unknown History zolpidem 10 mg tablet 10 mg PO BEDTIME 04/03/22 04/04/24 Unknown History gabapentin 300 mg capsule 300 mg PO TID 02/10/23 04/04/24 Unknown History fluticasone 500 mcg-salmeterol 50 1 ea inhalation BID 04/09/23 04/04/24 Unknown History mcg/dose blistr powdr for inhalation duloxetine 60 mg capsule,delayed 60 mg PO BEDTIME 08/13/23 04/04/24 Unknown History release fluticasone propionate 45 2 puff inhalation BID 11/11/23 04/04/24 Unknown History mcg-salmeterol 21 mcg/actuation HFA inhaler (Advair HFA) propranolol 60 mg tablet 80 mg PO BID 02/10/24 04/04/24 Unknown History duloxetine 30 mg capsule,delayed 30 mg PO QAM 03/16/24 04/04/24 Unknown History release famotidine 20 mg tablet 20 mg PO BID 03/16/24 04/04/24 Unknown History hydrochlorothiazide 25 mg tablet 25 mg PO QAM 03/16/24 04/04/24 Unknown History Exam Airway Mallampati Class: III TM Dist: <=3cm Neck ROM: Full Loose/Missing/Broken Teeth: No Heart: rrr Lungs: cta Assessment and Plan Assessment Anesthesia Assessment: Anesthesia Plan Discussed Final Anesthetic Review Family History of Problems with Anesthesia: No History of Problems with Anesthesia: No NPO: Yes ASA Class: III Final Preanesthetic Review: No Changes in Pt Med Stat, Meds/Allgs Chart Reviewed, Consent Obtained/Reviewed and Anes Risks/Benef Reviewed Patient Risk: Intermediate Procedure Risk: Intermediate Anesthetic Plan Anesthetic Plan: TIVA Disposition: Standard PACU
[2024-04-04 07:12] VITALS: BMI 31.2
[2024-04-04 07:32] VITALS: BP 122/78; PULSE 60; RESP 18; TEMP 36.4; O2SAT 97
[2024-04-04] MEDS: Lactated Ringers 1,000 ML 100 ML IVCONT (07:37)
--- NOTE | 2024-04-04 07:37 | P.HPSUR_ITS ---
Pre-Procedural Eval Section A - 24 Hr Update-Section A only Date of Service: 04/04/24 Section B - Complete if H&P > 30 days Chief Complaint: epigastric pain, abn bowel habit Relevant Family History (Specify if Yes): No Relevant Social History: None Present Medications: see Short Stay Collaborative assessment Medical History: Significant History ( Insomnia Anxiety Depression Syncope Mild intermittent asthma NAFLD (nonalcoholic fatty liver disease) Vertigo Sleep apnea IBS (irritable bowel syndrome) Arthritis HTN (hypertension)) History of Previous Operations: Relevant previous surgery/procedure and date(s) (Hx of colonoscopy History of esophagogastroduodenoscopy (EGD) History of hysterectomy) Allergies: Allergies Allergy/AdvReac Type Severity Reaction Status Date / Time No Known Allergies Allergy Verified 03/16/24 08:59 Review of Systems Sugical H&P ROS: Negative: Constitution, Cardiovascular, Respiratory, Neurological, Psychiatric, Hem-Onc, Allergic/Immunologic, Gastrointestinal, Genitourinary, Musculoskeletal, Integumentary, Endocrine and Eyes /Ears/Nose/Throat Exam Surgical H&P Exam: Normal: HEENT, Normal: Heart, Normal: Lungs, Normal: Extremities, Normal: Abdomen, Normal: Skin and Normal: Neurological Plan Diagnosis/Plan: Unchanged I have reviewed the history and physical and performed a pertinent physical examination on my patient. No changes have occurred unless specified. Time Spent With Patient Time: Total time managing care of this patient today ____ minutes.
--- NOTE | 2024-04-04 07:38 | P.OPN-COLO_ITS ---
Colonoscopy Operative Note Operative Note Date of Service: 04/04/24 Narrative: Operative Information Procedure Description: EGD, Colonoscopy Indication: abn bowel habit, epigastric pain Anesthesia: MAC FLEXIBLE TRANSORAL UPPER GASTROINTESTINAL ENDOSCOPY AND COLONOSCOPY PROCEDURE NOTE UPPER ENDOSCOPY Consent: Indications for the procedure and potential complications of bleeding, perforation, reaction to medications and missed diagnosis were discussed with the patient and informed consent was obtained. Instrument: Olympus GIF H 190 J mid size upper endoscope Monitoring: Vital signs and clinical assessment, continuous EKG monitoring, Pulse oximetry, Carbon Dioxide monitoring and blood pressure monitoring were done throughout the procedure. Procedure: The patient was placed in the left lateral decubitis position and pre-procedure medications were administered and a bite block was placed. The endoscope was inserted into the mouth and advanced under direct vision to the third part of duodenum. A careful inspection was made as the upper endoscope was withdrawn including a retroflexed examination of the proximal stomach; Findings and interventions are described below. Findings: Larynx:normal Esophagus: GE junction at 38 cm, diaphragm hiatus at 38 cm, mild inflammation at GEJ, bx taken from here and distal esophagus Stomach: Mild erythema. Biopsies were obtained. Grade 2 flap valve on retroflexed examination of the cardia. Duodenum: Normal bulb and descending duodenum, bx taken Intervention: Biopsies as noted above, COLONOSCOPY Instrument: Olympus variable stiffness pediatric scope 190L Colonoscopy Monitoring: Vital signs and clinical assessment, continuous EKG monitoring, Pulse oximetry, Carbon Dioxide monitoring and blood pressure monitoring were done throughout the procedure. Colon withdrawal time was 12 minutes. Procedure: The patient was placed in the left lateral decubitis position and pre-procedure medications were administered. After a digital rectal examination of the ano-rectum, the video colonoscope was inserted into the rectum and advanced through the colon to the cecum/TI. The colonoscope was slowly withdrawn in a retrograde panoramic fashion and the colon mucosa was carefully examined including a retroflexed view of the rectum. Findings and interventions are described below. Procedure Difficulty:moderate Findings: Terminal Ileum-normal Cecum:normal Ascending Colon: normal Transverse Colon -normal Descending Colon:normal Sigmoid Colon: 10 mm sessile polyp removed with cold snare Rectum: Retroflexion with small internal hemorrhoids, grade I Anorectum - normal Colon preparation: Rogers Bowel Preparation Scale Right colon; 1-2 Transverse colon: 2 Left colon; 1-2 (0 = Unprepared colon segment with mucosa not seen due to solid stool that cannot be cleared. 1 = Portion of mucosa of the colon segment seen, but other areas of the colon segment not well seen due to staining, residual stool and/or opaque liquid. 2 = Minor amount of residual staining, small fragments of stool and/or opaque liquid, but mucosa of colon segment seen well. 3 = Entire mucosa of colon segment seen well with no residual staining, small fragments of stool or opaque liquid) Impression and Post Procedure Diagnosis: Endoscopy Findings: mild gastritis Colonoscopy Findings: colon polyp internal hemorrhoids Plan: Await Pathology results Repeat Colonoscopy in 5 years due to areas of fair prep or earlier if clinically indicated High fiber diet leaflet avoid straining at stool, epsom salts and sitz bath, anusol supps or cream Above findings were reviewed with the patient and relevant handouts were provided if indicated.
[2024-04-04 08:32] VITALS: BP 114/62; PULSE 74; RESP 16; TEMP 36.4; O2SAT 96
[2024-04-04 08:47] VITALS: BP 128/72; PULSE 64; RESP 16; O2SAT 97
[2024-04-04 09:03] VITALS: BP 128/72; PULSE 60; RESP 16; O2SAT 98
[2024-04-04] MEDS: ondansetron HCL 4 MG/2 ML VIAL IVPUSH (09:09)
== END 2024-04-04 10:11 | disposition home or self-care (01) ==
PROVIDERS: PCP Family Medicine; Visit Provider Internal Medicine Gastroenterology
PROC: (CPT 45385; principal; 2024-04-04 08:20)
DX: R19.4 Change in bowel habit (principal); K63.5 Polyp of colon; K64.0 First degree hemorrhoids; R10.13 Epigastric pain; K29.70 Gastritis, unspecified, without bleeding; K58.2 Mixed irritable bowel syndrome; I10 Essential (primary) hypertension
CPT/HCPCS: 45385; 43239; 88305; 88313; 88342; J1596; J2405; J2704

== ENCOUNTER → 2024-04-04 06:34 | Outpatient (BNV) | payer OTHER, MEDICAID, SELFPAY | PROVIDERS: PCP Family Medicine; Visit Provider Internal Medicine Gastroenterology | DX: R19.4 Change in bowel habit (principal); K63.5 Polyp of colon; K64.9 Unspecified hemorrhoids; K29.70 Gastritis, unspecified, without bleeding | CPT/HCPCS: 43239; 45385 ==

== ENCOUNTER 2024-05-26 08:48 | Outpatient (AMB) | payer OTHER, MEDICAID, SELFPAY ==
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
[2024-05-26 09:01] VITALS: BP 154/8; PULSE 69; BMI 30.1
== END 2024-05-26 09:50 | disposition home or self-care (01) ==
PROVIDERS: PCP Family Medicine; Visit Provider Internal Medicine Gastroenterology
DX: K58.9 Irritable bowel syndrome, unspecified (principal); K82.4 Cholesterolosis of gallbladder
CPT/HCPCS: 99213

== ENCOUNTER → 2024-05-26 08:48 | Outpatient (BNVA) | payer OTHER, MEDICAID, SELFPAY | PROVIDERS: PCP Family Medicine; Visit Provider Internal Medicine Gastroenterology | DX: K58.2 Mixed irritable bowel syndrome (principal); K82.4 Cholesterolosis of gallbladder | CPT/HCPCS: 99212 ==

== ENCOUNTER 2024-07-08 08:52 | Outpatient (REF) | payer OTHER, SELFPAY ==
[2024-07-08 09:03] LABS: MANUAL DIFF FLAG NO
[2024-07-08 10:19] LABS: Basophils Percent Auto 0.6 % (0-2); Eosinophils Absolute Auto 0.1 X10*3/uL (0.0-0.4); Eosinophils Percent Auto 1.4 % (0-4); Hematocrit 37.2 % (37.0-47.0); Hemoglobin 12.4 g/dl (12.0-16.0); Imm Gran Abs Auto 0.02 X10*3/uL (0.00-0.03); Imm Gran Pct Auto 0.3 % (0.0-0.4); Lymphocytes Absolute Auto 2.1 X10*3/uL (1.2-4.9); Lymphocytes Percent Auto 31.3 % (20-40); Mean Corpuscular HGB Conc 33.3 g/dl (31.0-35.0); Mean Corpuscular Hemoglobin 31.9 pg (27.0-33.0); Mean Corpuscular Volume 95.6 fL (80.0-98.0); Mean Platelet Volume 10.9 fL (9.4-12.3); Monocytes Absolute Auto 0.5 X10*3/uL (0.1-1.2); Monocytes Percent Auto 8.3 % (2-11); Neutrophils Absolute Auto 3.8 x10*3/uL (2.0-8.3); Neutrophils Percent Auto 58.1 % (45-73); Platelet Count 324 X10*3/uL (160-400); Red Blood Count 3.89 X10*6/uL (4.20-5.50); Red Cell Distribution Width 11.9 % (11.0-16.0); White Blood Count 6.5 X10*3/uL (4.8-10.8)
[2024-07-08 11:02] LABS: Alanine Aminotransferase 19 U/L (0-31); Albumin Level 4.1 g/dL (3.5-5.0); Alkaline Phosphatase 83 U/L (39-117); Anion Gap 13 (12-20); Aspartate Amino Transferase 16 U/L (5-31); Bilirubin Direct 0.1 mg/dL (0.0-0.5); Bilirubin Total 0.3 mg/dL (0.0-1.0); Blood Urea Nitrogen 16 mg/dL (9-16); Calcium 9.4 mg/dL (8.4-10.2); Carbon Dioxide 25 mmol/L (22-29); Chloride 107 mmol/L (96-108); Cholesterol 184 mg/dL (<200); Estimated Glomerular Filt Rate > 60; Glucose Random 100 mg/dL (60-115); HDL Cholesterol 36 mg/dL (>40); LDL Cholesterol Calculated 128 mg/dL (<100); Magnesium 1.8 mg/dL (1.6-2.6); Potassium 3.8 mmol/L (3.3-5.1); Sodium 141 mmol/L (135-145); Total Protein 7.6 g/dL (6.5-8.0); Triglycerides 101 mg/dL (<150)
[2024-07-08 11:20] LABS: TSH reflex Free T4 3.71 uIU/mL (0.32-4.0); Vitamin D 25-OH Total 27.2 ng/mL (>30)
== END 2024-07-08 08:53 | disposition home or self-care (01) ==
LOC: HO.LAB 08:52
PROVIDERS: PCP Family Medicine; Visit Provider Family Medicine
DX: R53.83 Other fatigue (principal); E55.9 Vitamin D deficiency, unspecified; E66.3 Overweight; M79.7 Fibromyalgia; I10 Essential (primary) hypertension
CPT/HCPCS: 36415; 80048; 80061; 80076; 82306; 83735; 84443; 85025

== ENCOUNTER 2024-07-31 10:16 | Outpatient (AMB) | payer OTHER, SELFPAY ==
--- NOTE | 2024-07-31 10:46 | MHC.OFFVIS ---
Vital Signs 07/31/24 10:48 Height 5 ft 3 in Weight 147 lb BMI 26.0 Handedness Right Intake Visit Reasons: New prob- Left Wrist CTS Intake Note: Lety is a 54 year old right hand dominant female who presents for a new problem visit with complaints of left hand numbness and tingling. Patient says this has been going on for about 3 years but roughly 3 months ago her symptoms exacerbated. She expresses she has constant daily pain, numbness and tingling in all her fingers of the left hand that radiates up her arm. She reports occasional swelling of the hand and cramping of her fingers. This worsens at night causing her to wake up. She uses a CPAP machine and expresses frustration at night because she does not have the strength to tighten the straps of the mask if it loosens at night. Patient reports difficulty with gripping, grasping, and lifting activities. She says she has tried Tylenol and ibuprofen but finds no relief. Patient expresses she is pre-diabetic. Claim Processing Specialist Required: Yes Claim Processing Specialist Language: Earth Auger Operator Name: [id number] Allergies No Known Allergies Allergy (Verified 07/31/24 10:49) HPI HPI New prob- Left Wrist CTS: Details: Patient is a 54-year-old female who presents for evaluation of bilateral hand pain, numbness, tingling. The patient reports that this has been ongoing for over 3 years, but states that approximately 3 months ago she noticed an acute exacerbation of the symptoms, particularly on the left. The patient reports that she finds her left side far more bothersome than the right. The patient reports that she also experiences significant pain in the palm of her left hand. Patient states that numbness is intermittent, but daily, and worse at night, and that symptoms are far more common on the left than the right. No other acute complaints or concerns at this time. [facility] Medical History Insomnia Anxiety Depression Syncope Mild intermittent asthma NAFLD (nonalcoholic fatty liver disease) Vertigo Sleep apnea IBS (irritable bowel syndrome) Arthritis HTN (hypertension) Surgical History Hx of colonoscopy History of esophagogastroduodenoscopy (EGD) History of hysterectomy Family History Father Diabetes Arthritis Hypertension Hypercholesteremia Cancer Mother Diabetes Hypertension Arthritis Cancer Son Asthma Son Asthma Heart problem Social History Alcohol intake: never Patient Tobacco Use Status: Never used Tobacco Current occupational status: retired Review of Systems Const All systems reviewed & are unremarkable except as noted in HPI and below Physical Exam Vital Signs: BMI result Body Mass Index 26.0 Extrem Other: Neuro: Decreased sensation in the digits of the left hand. Normal sensation in the tips of all digits of the right hand today. No thenar or intrinsic wasting. Good APB muscle firing and good finger cross. Vascular: Capillary refill brisk. Pain: Patient reports discomfort with all range of motion of the left hand ROM: Patient can make a fist and extend all their digits. Skin: No lacerations or abrasions noted. General: No ecchymosis. No erythema or evidence of infection. Assessment & Plan Assessment & Plan (1) Stiffness of joints of both hands: Code(s): M25.641 - Stiffness of right hand, not elsewhere classified; M25.642 - Stiffness of left hand, not elsewhere classified Category: Medical (2) Numbness and tingling in both hands: Code(s): R20.0 - Anesthesia of skin; R20.2 - Paresthesia of skin Category: Medical Plan 1. Bilateral hand numbness and tingling Symptoms intermittent, but daily, worse at night At this time, patient is referred for EMG and nerve conduction study to assess the health of the nerves of bilateral upper extremities Patient is amenable to this plan Patient will follow-up after EMG and nerve conduction study for results review and discussion of further treatment options if indicated 2. Stiffness of bilateral hands Patient was referred to occupational hand therapy for range of motion, strengthening of bilateral hands Patient is amenable to this plan Patient will follow-up after EMG and nerve conduction study for results review and discussion of treatment options, sooner with any acute concerns Orders: Orders OT Evaluation and Treatment Today M25.641 - Stiffness of right hand, not elsewhere classified, M25.642 - Stiffness of left hand, not elsewhere classified NE nerve conduction velocity Today R20.0 - Anesthesia of skin, R20.2 - Paresthesia of skin NE electromyogram (EMG) Today R20.0 - Anesthesia of skin, R20.2 - Paresthesia of skin Coding Level of Care Code New Pt Level 3 (79717) Diagnoses Stiffness of joints of both hands M25.641; M25.642 Numbness and tingling in both hands R20.0; R20.2
[2024-07-31 10:48] VITALS: BMI 26.0
== END 2024-07-31 11:13 | disposition home or self-care (01) ==
PROVIDERS: PCP Family Medicine
DX: M25.641 Stiffness of right hand, not elsewhere classified (principal); M25.642 Stiffness of left hand, not elsewhere classified; R20.0 Anesthesia of skin; R20.2 Paresthesia of skin
CPT/HCPCS: 99203

== ENCOUNTER → 2024-07-31 10:16 | Outpatient (BNVA) | payer OTHER, MEDICAID, SELFPAY | PROVIDERS: PCP Family Medicine; Visit Provider Physician Assistant | DX: M25.641 Stiffness of right hand, not elsewhere classified (principal); M25.642 Stiffness of left hand, not elsewhere classified; R20.0 Anesthesia of skin; R20.2 Paresthesia of skin | CPT/HCPCS: 99202 ==

== ENCOUNTER 2024-08-07 16:13 | Outpatient (REF) | payer OTHER, MEDICAID, SELFPAY ==
--- NOTE | ~2024-08-07 | CT_ITS ---
EXAMINATION: CT ABDOMEN WITHOUT CONTRAST CLINICAL INFORMATION: Follow-up adrenal gland mass. COMPARISON: CT dated August 27, 2023. TECHNIQUE: Contiguous axial thin section helical images of the abdomen were performed without contrast. The data set was reformatted in the coronal and sagittal planes and reviewed on an independent workstation. This CT examination was performed using dose optimization techniques as appropriate, variously including the following: *Automated exposure control *Adjustment of mA and/or kV according to patient size (this includes techniques or standardized protocols for targeted exams where dose is matched to indication/reason for exam; i.e. extremities or head) *Use of iterative reconstruction technique DLP: 274 mGy-cm FINDINGS: Submitted for interpretation on October 06, 2024. Left adrenal gland: There is a 9 mm isodense nodule measuring 40 Hounsfield units in the non-IV contrast exam. Right adrenal gland: No nodular lesion. Inadequate evaluation of the intra-abdominal organs and vascular structures due to lack of IV contrast. No intestinal obstruction pattern. No ascites. No pneumoperitoneum. No pneumatosis intestinalis. Lymphadenopathy, mediastinum Liver measures 15 cm. No pericholecystic fluid collection or gallbladder wall thickening. No intrahepatic or extrahepatic biliary ductal dilatation. Spleen measures 7 cm. No peripancreatic fluid collection or main pancreatic ductal dilatation. No hydronephrosis or nephrolithiasis. No aneurysm in the abdominal aorta. Fat-containing umbilical hernia. No acute airspace disease or gross pulmonary nodules in the included lungs. No acute fracture or listhesis. No lytic or blastic lesions. CT/CT abdomen wo IV con IMPRESSION: 9 mm nodule, left adrenal gland. Incomplete evaluation. Lymphadenopathy, mesenteric. Fat-containing umbilical hernia. Fleischner guidelines were followed. Electronically signed by: Jonatan Marcelino MD 10/06/2024 10:55 AM EST
== END 2024-08-07 16:14 | disposition home or self-care (01) ==
LOC: HO.CT 16:13
PROVIDERS: PCP Family Medicine; Visit Provider Family Medicine
DX: E27.8 Other specified disorders of adrenal gland (principal)
CPT/HCPCS: 74150

== ENCOUNTER → 2024-08-07 16:15 | Outpatient (BNV) | payer OTHER, MEDICAID, SELFPAY | PROVIDERS: PCP Family Medicine; Visit Provider Radiology Diagnostic Radiology | DX: D35.02 Benign neoplasm of left adrenal gland (principal) | CPT/HCPCS: 74150 ==

== ENCOUNTER 2024-08-11 08:03 | Outpatient (RCR) | payer OTHER, MEDICAID, SELFPAY ==
--- NOTE | 2024-08-11 09:25 | MHC.OT.EP ---
[address] [phone] Occupational Therapy Plan of Care Patient Name: Lety Bates Date of Evaluation: 08/11/24 Diagnosis: B/L Hand Stiffness Pain Location: Sharp, deep, radiating pain fingers to forearm left > right Resting pain and with use Pain Score: 8 Pain Scale Used: Numeric (0 - 10) Aggravating Factors: General use and movements, opening containers Alleviating Factors: Occasional ibuprophen (does not like because aggravates stomach) Assessment: 54 yo female with hx B/L hand pain, started a couple years ago, but has been worse over the past few months, noting numbness/tingling at nighttime. She has been wearing nighttime orthoses w/ some relief, but scheduled for EMG 08/30/24. On assessment today she reports high resting pain and has occasional resting tremor in hands/UEs. 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 No atrophy noted in hands, but sensory testing shows loss of protective sensation in both hands. 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 We will continue outpatient therapy to encourage general movement for strengthening and increasing participation in daily activities. Frequency and Duration: The patient will be seen 2x/wk 4 weeks Short Term Goals: Ind w/ HEP Pt to demo ease w/ hook range Pt to complete light B/L FMC task w/ ease (ADL closure boards for lace and buttons) Security Installer Goals: Progress to strengthening program Pt to identify 3 leisure activities to encourage activity in home Left gross grasp >20 lb Pt to report ease of nighttime CTS symptoms w/ orthosis wear Treatment Plan: Therapeutic Exercise Therapeutic Activity Home Exercise Program Splinting Neuro Re-ed Patient Education Desensitization/Sensory Re-ed Edema Control ADL Training Ultrasound Paraffin Fluidotherapy MHP Cold Packs Soft Tissue Mobilization Kinesiotaping Electronically Signed By: 2x/wk x 4 weeks Please Sign and return to therapist. Thank you once again for your referral.
--- NOTE | 2024-08-21 09:30 | MHC.OT.DC ---
[address] [phone] F: [phone] Occupational Therapy Discharge Note Patient Name: Lety Bates Provider: Phil Fuentes PA-C Diagnosis: B/L Hand Stiffness Date of Evaluation: 08/11/24 Date of Discharge: 08/21/24 Treatments to Date: 1 Cancellations to Date: No Shows to Date: 2 Discharge Status: Visit Non-compliance Discharge Summary: Lety was seen for her initial OT eval for B/L hand stiffness, she was given HEP and scheduled for further appointments, but has no-showed all following appointments. We will be discharging at this time due to non compliance policy. Electronically Signed By: 2x/wk x 4 weeks Reviewed/agree with student documentation: Therapist: Please Sign and return to therapist, thank you for your referral.
== END 2024-08-21 09:29 | disposition home or self-care (01) ==
LOC: HO.OT 08:03
PROVIDERS: PCP Family Medicine
DX: M25.641 Stiffness of right hand, not elsewhere classified (principal); M25.642 Stiffness of left hand, not elsewhere classified
CPT/HCPCS: 97110; 97166

== ENCOUNTER 2024-08-30 14:06 | Outpatient (REF) | payer OTHER, MEDICAID, SELFPAY ==
--- NOTE | 2024-08-30 14:09 | EMG_ITS ---
Chief complaint: Bilateral hand pain and numbness Reason for referral: Evaluate for Carpal Tunnel Syndrome Referred by: Phil CALVILLO Procedure done: Bilateral upper extremities NCS/EMG Precautions and/or limitations: None The limb temperature was monitored continuously and remained between 32-36 degrees C during the performance of the NCS. Nerve Conduction Studies Anti Sensory Summary Table ?Stim Site NR Onset (ms) Norm Onset (ms) Peak (ms) Norm Peak (ms) O-P Amp (?V) Norm O-P Amp Site1 Site2 Delta-0 (ms) Dist (cm) Leonel (m/s) Norm Leonel (m/s) Left Median Anti Sensory (2nd Digit) Wrist ? 2.6 3.4 <3.6 30.0 >10 Wrist 2nd Digit 2.6 14.0 54 Right Median Anti Sensory (2nd Digit) Wrist ? 2.8 3.6 <3.6 24.1 >10 Wrist 2nd Digit 2.8 14.0 50 Left Ulnar Anti Sensory (5th Digit) Wrist ? 2.5 3.3 <3.7 25.6 >15.0 Wrist 5th Digit 2.5 14.0 56 Right Ulnar Anti Sensory (5th Digit) Wrist ? 1.0 2.9 <3.7 19.1 >15.0 Wrist 5th Digit 1.0 14.0 140 Motor Summary Table ?Stim Site NR Onset (ms) Norm Onset (ms) O-P Amp (mV) Norm O-P Amp iAmp (mV) Amp (1st) (%) Site1 Site2 Delta-0 (ms) Dist (cm) Leonel (m/s) Norm Leonel (m/s) Left Median Motor (Abd Poll Brev) Wrist ? 3.5 <3.9 7.6 >4.5 9.4 100.0 Elbow Wrist 4.0 19.0 48 >45 Elbow ? 7.5 7.1 8.8 93.4 Right Median Motor (Abd Poll Brev) Wrist ? 3.5 <3.9 5.6 >4.5 7.0 100.0 Elbow Wrist 4.1 20.5 50 >45 Elbow ? 7.6 5.2 6.4 92.9 Left Ulnar Motor (Abd Dig Minimi) Wrist ? 2.9 <3.0 8.8 >5 10.7 100.0 B Elbow Wrist 3.2 18.0 56 >45 B Elbow ? 6.1 7.2 9.1 81.8 A Elbow B Elbow 1.7 10.0 59 >45 A Elbow ? 7.8 8.2 10.4 93.2 Right Ulnar Motor (Abd Dig Minimi) Wrist ? 2.7 <3.0 7.8 >5 9.4 100.0 B Elbow Wrist 3.4 19.5 57 >45 B Elbow ? 6.1 7.2 9.1 92.3 A Elbow B Elbow 1.6 10.0 62 >45 A Elbow ? 7.7 7.5 9.5 96.2 Comparison Summary Table ?Stim Site NR Peak (ms) Norm Peak (ms) P-T Amp (?V) Site1 Site2 Delta-P (ms) Norm Delta (ms) Right Median/Radial Dig I Comparison (Digit 1 - 10cm) Median ? 2.9 <2.9 21.7 Median Radial 0.3 Radial ? 2.6 <2.8 5.3 EMG ?Side Muscle Nerve Root Ins Act Fibs Psw Amp Dur Poly Recrt Int Pat Comment Right 1stDorInt Ulnar C8-T1 Nml Nml Nml Nml Nml 0 Nml Complete Right FlexCarRad Median C6-7 Nml Nml Nml Nml Nml 0 Nml Complete Right Biceps Musculocut C5-6 Nml Nml Nml Nml Nml 0 Nml Complete Right Triceps Radial C6-7-8 Nml Nml Nml Nml Nml 0 Nml Complete Right Deltoid Axillary C5-6 Nml Nml Nml Nml Nml 0 Nml Complete Left 1stDorInt Ulnar C8-T1 Nml Nml Nml Nml Nml 0 Nml Complete Left FlexCarRad Median C6-7 Nml Nml Nml Nml Nml 0 Nml Complete Left Biceps Musculocut C5-6 Nml Nml Nml Nml Nml 0 Nml Complete Left Triceps Radial C6-7-8 Nml Nml Nml Nml Nml 0 Nml Complete Left Deltoid Axillary C5-6 Nml Nml Nml Nml Nml 0 Nml Complete FINDINGS: All motor and sensory nerves tested showed normal latencies, amplitudes and conduction velocities. Concentric needle EMG was performed in selected muscles of the bilateral upper extremities. Study did not reveal signs of electric abnormalities as shown in the table above. IMPRESSION: 1. This is a normal study. 2. There is no electrodiagnostic evidence for median neuropathy, ulnar neuropathy, brachial plexopathy, or cervical radiculopathy. Thank you for your kind referral. Susanna Lovell MD, JENNIFER Board Certified, [place] [employer] and [employer] (ABPMR) Board Certified, [place] Board of Electrodiagnostic [employer] (ABEM) CODIN [phone] 2 MTDD
== END 2024-08-30 14:07 | disposition home or self-care (01) ==
LOC: HO.NEURO 14:06
PROVIDERS: PCP Family Medicine
DX: R20.0 Anesthesia of skin (principal); R20.2 Paresthesia of skin
CPT/HCPCS: 95886; 95911

== ENCOUNTER → 2024-08-30 14:09 | Outpatient (BNV) | payer OTHER, MEDICAID, SELFPAY | PROVIDERS: PCP Family Medicine; Visit Provider Physical Medicine & Rehabilitation | DX: R20.0 Anesthesia of skin (principal); R20.2 Paresthesia of skin; M79.641 Pain in right hand; M79.642 Pain in left hand | CPT/HCPCS: 95886; 95911 ==

== ENCOUNTER 2024-09-04 10:40 | Outpatient (AMB) | payer OTHER, MEDICAID, SELFPAY ==
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
[2024-09-04 10:43] VITALS: BP 139/99; PULSE 64; BMI 30.5
== END 2024-09-04 11:31 | disposition home or self-care (01) ==
LOC: HO.HGI 10:40
PROVIDERS: PCP Family Medicine; Visit Provider Internal Medicine Gastroenterology
DX: K82.4 Cholesterolosis of gallbladder (principal); K21.9 Gastro-esophageal reflux disease without esophagitis
CPT/HCPCS: 99214

== ENCOUNTER → 2024-09-04 10:40 | Outpatient (BNVA) | payer OTHER, MEDICAID, SELFPAY | PROVIDERS: PCP Family Medicine; Visit Provider Internal Medicine Gastroenterology | DX: K82.4 Cholesterolosis of gallbladder (principal); K21.9 Gastro-esophageal reflux disease without esophagitis | CPT/HCPCS: 99212 ==

== ENCOUNTER 2024-09-13 09:42 | Outpatient (AMB) | payer OTHER, MEDICAID, SELFPAY ==
--- NOTE | 2024-09-13 09:50 | A.OFFVIS_ITS ---
Vital Signs 09/13/24 09:54 Height 5 ft 3 in Weight 176 lb 2 oz BMI 31.2 Intake Visit Reasons: Umbilical hernia Intake Note: This patient presents for question of umbilical hernia. Pt c/o; reports pain jackie umbilical region, reports constipation. Software Design Engineer Required: Yes Software Design Engineer Language: Foreign Language Professor Services: Software Design Engineer Present Software Design Engineer Name: [email or web address] Information Interpreted: non-clinical & clinical Accompanied by: Self / Same As Patient Allergies No Known Allergies Allergy (Verified 09/13/24 09:55) Medication List - Last Reconciled 09/13/24 by Kendall Bates MD amlodipine 10 mg PO QAM blood pressure test kit-large As directed buspirone 30 mg PO BID cetirizine 10 mg PO QAM cholecalciferol (vitamin D3) (Vitamin D3) 25 mcg PO QAM duloxetine 60 mg PO DAILY esomeprazole magnesium 40 mg PO DAILY fluticasone propion-salmeterol 45-21 mcg/actuation (Advair HFA) 2 puffs inhalation BID fluticasone propion-salmeterol 500-50 mcg/dose 1 ea inhalation BID fluticasone propionate 50 mcg/actuation intranasal gabapentin 300 mg PO TID hydrochlorothiazide 25 mg PO QAM lisinopril 20 mg PO QAM 90 days mesalamine ER (Apriso) 1.5 grams (4 x 0.375 gram) PO QAM mesalamine ER 1.5 grams (4 x 0.375 gram) PO QAM ondansetron HCl (Zofran) 4 mg PO Q8H PRN polyethylene glycol 3350 (ClearLax) 17 grams PO BID primidone 50 mg PO BEDTIME propranolol 80 mg PO zolpidem 10 mg PO BEDTIME HPI HPI Umbilical hernia: Details: [age] year old female referred for an umbilical hernia. She describes this reducible mass on her umbilicus for about 2-3 months now. She says that she has had increasing discomfort She denies any GI complaints. She says she has been seen by the meat dresser earlier this year because of a syncopal episode and a positive tilt-table test. This was deemed to be vasovagal in origin. [facility] Medical History Insomnia Anxiety Depression Syncope Mild intermittent asthma NAFLD (nonalcoholic fatty liver disease) Vertigo Sleep apnea IBS (irritable bowel syndrome) Arthritis HTN (hypertension) Surgical History Hx of colonoscopy History of esophagogastroduodenoscopy (EGD) History of hysterectomy Family History Father Diabetes Arthritis Hypertension Hypercholesteremia Cancer Mother Diabetes Hypertension Arthritis Cancer Son Asthma Son Asthma Heart problem Social History Alcohol intake: never Patient Tobacco Use Status: Never used Tobacco Current occupational status: retired Review of Systems Const Denies chills and Denies fever(s) Card Denies chest pain, Denies dyspnea and Denies dyspnea on exertion Resp Denies cough, Denies dyspnea and Denies dyspnea on exertion GI Denies hematochezia and Denies change in bowel habits Denies hematuria Musc Denies back pain and Denies limited range of motion Neuro Denies focal weakness and Denies convulsions Psych Denies depression and Denies mood swings Physical Exam Vital Signs: BMI result Body Mass Index 31.2 Const General: comfortable and no acute distress Orientation/consciousness: patient oriented x3 Neck Neck: Yes no lymphadenopathy Resp Auscultation: clear to auscultation bilaterally Cardio Rhythm: regular rhythm GI Other: Umbilical hernia, unable to define margins inferior subcutaneous fat, probably about 2.5 cm reducible Palpation (GI): Soft to palpation, nontender and no guarding Neuro General: patient oriented x3 Assessment & Plan Assessment & Plan (1) Umbilical hernia: Code(s): K42.9 - Umbilical hernia without obstruction or gangrene Category: Medical Plan She describes this reducible mass on the umbilicus with pain and tenderness. I explained to her the technique of repair of this umbilical hernia with possible mesh placement. I reviewed the risks including but not limited to bleeding, infections, bowel injury, recurrence, postop pain, as well as the benefits and alternatives. I also explained to her what to expect postoperatively. She understands and wants to proceed. Because she has a thick amount of subcutaneous fat, I am going to order for a CAT scan to define extent of this hernia. Orders: Orders CT abdomen pelvis wo IV con Today K42.9 - Umbilical hernia without obstruction or gangrene Coding Level of Care Code New Pt Level 3 (62213) Diagnoses Umbilical hernia K42.9
[2024-09-13 09:54] VITALS: BMI 31.2
== END 2024-09-13 10:18 | disposition home or self-care (01) ==
PROVIDERS: PCP Family Medicine; Referring Provider Internal Medicine Gastroenterology; Visit Provider Surgery
DX: K42.9 Umbilical hernia without obstruction or gangrene (principal)
CPT/HCPCS: 99203

== ENCOUNTER → 2024-09-13 09:42 | Outpatient (BNVA) | payer OTHER, MEDICAID, SELFPAY | PROVIDERS: PCP Family Medicine; Referring Provider Internal Medicine Gastroenterology; Visit Provider Surgery | DX: K42.9 Umbilical hernia without obstruction or gangrene (principal); K59.00 Constipation, unspecified | CPT/HCPCS: 99202 ==

== ENCOUNTER 2024-10-02 12:52 | Outpatient (AMB) | payer OTHER, MEDICAID, SELFPAY ==
[2024-10-02 13:07] VITALS: BP 130/74; PULSE 64; BMI 31.3
--- NOTE | 2024-10-02 13:07 | MHC.OFFVIS ---
Vital Signs 10/02/24 13:07 Height 5 ft 3 in Weight 176 lb 12.972 oz BMI 31.3 BP 130/74 Blood Pressure Location Lt brachial Position Sitting Pulse 64 Pulse Source Monitor Intake Visit Reasons: 6 mth f/up Intake Note: 6 mth f/up Media Marketing Coordinator Required: Yes Media Marketing Coordinator Language: Telecommunications Administrator Name: [email or web address] [phone] Accompanied by: Self / Same As Patient Allergies No Known Allergies Allergy (Verified 09/13/24 09:55) Medication List - Last Reconciled 10/02/24 by Riky Tanner MD amlodipine 10 mg PO QAM blood pressure test kit-large As directed buspirone 30 mg PO BID cetirizine 10 mg PO QAM cholecalciferol (vitamin D3) (Vitamin D3) 25 mcg PO QAM duloxetine 60 mg PO DAILY duloxetine 30 mg PO DAILY esomeprazole magnesium 40 mg PO DAILY fluticasone propion-salmeterol 45-21 mcg/actuation (Advair HFA) 2 puffs inhalation BID fluticasone propion-salmeterol 500-50 mcg/dose 1 ea inhalation BID fluticasone propionate 50 mcg/actuation intranasal gabapentin 300 mg PO TID hydrochlorothiazide 25 mg PO QAM lisinopril 20 mg PO QAM 90 days mesalamine ER (Apriso) 1.5 grams (4 x 0.375 gram) PO QAM mesalamine ER 1.5 grams (4 x 0.375 gram) PO QAM ondansetron HCl (Zofran) 4 mg PO Q8H PRN polyethylene glycol 3350 (ClearLax) 17 grams PO BID primidone 50 mg PO BEDTIME propranolol 80 mg PO zolpidem 10 mg PO BEDTIME HPI Comments Details: Pleasant 54-year-old female who is here for episode of syncope. She was last seen in 2019 at which stage she was complaining of palpitations which were felt to be related to anxiety. Her workup was normal at that time. It appears she was standing in a line and bent down and then passed out falling forward and hitting her face. She said she was feeling hot and cold. As she came to senses she was confused and does not remember how she got to the hospital. No seizure-like activity, urinary or fecal incontinence or tongue bite noticed. At home she was having some urinary urgency and she had urinary incontinence at 1 stage. She has never had seizures before. she is denying any other symptoms currently. Blood pressure in the office is okay. She is quite concerned because she has family history of heart issues. After discussion she was referred for echocardiography which was essentially normal. She also had a cardiac event monitor which she wore for 15 days. She had sinus rhythm and no significant arrhythmia was noted. 02/10/23: She is getting some postural dizziness and I am not sure whether orthostasis is playing a role. She is on hydrochlorothiazide and amlodipine. She is saying she is drinks water during the day. She has yet to see Neurology in consultation to rule out seizures. 05/26/23: She is here for follow-up. She is complaining of fatigue. She is saying that the CPAP mask leaks and she is trying to get supplies through her insurance. She is still using the mass but has significant air leak by her description. She is taking medications as before. On last visit we advised her to stop hydrochlorothiazide but appears she is still using that. She is saying she gets minimal symptoms at this point. She is also complaining of some palpitations. Quite vague about her story. Overall quite fatigued and tired. Blood pressure control is good. 10/02/2024: She is here for follow-up. She is complaining of left knee pain. She is saying she is getting workup for this. Again she is complaining of some dizziness and lightheadedness. She complained about it on 1 visit in 01/2023 and we advised her to stop the hydrochlorothiazide but on follow-up visit she was still taking hydrochlorothiazide and was feeling fine. I have advised her to stop the hydrochlorothiazide. [facility] Medical History Insomnia Anxiety Depression Syncope Mild intermittent asthma NAFLD (nonalcoholic fatty liver disease) Vertigo Sleep apnea IBS (irritable bowel syndrome) Arthritis HTN (hypertension) Surgical History Hx of colonoscopy History of esophagogastroduodenoscopy (EGD) History of hysterectomy Family History Father Diabetes Arthritis Hypertension Hypercholesteremia Cancer Mother Diabetes Hypertension Arthritis Cancer Son Asthma Son Asthma Heart problem Social History Alcohol intake: never Patient Tobacco Use Status: Never used Tobacco Current occupational status: retired Review of Systems Const Denies chills, Denies fatigue, Denies fever(s), Denies frequent falls, Denies weakness, Denies weight gain and Denies weight loss ENT Denies dizziness Card Denies chest pain, Denies leg edema, Denies lightheadedness, Denies palpitations, Denies dyspnea and Denies dyspnea on exertion Resp Denies cough, Denies dyspnea and Denies dyspnea on exertion GI Denies hematochezia Musc Denies abnormal gait, Denies muscle weakness, Denies numbness, Denies radiating pain into limb and Denies tingling Neuro Denies abnormal gait, Denies dizziness, Denies frequent falls, Denies numbness, Denies tingling and Denies weakness Endo Denies fatigue and Denies palpitations Physical Exam Vital Signs: Last Vital Signs Pulse 64 10/02/24 13:07 BP 130/74 10/02/24 13:07 BMI result Body Mass Index 31.3 GENERAL APPEARANCE: in no acute distress. NECK: no carotid bruit, no jugular venous distention. SKIN: no suspicious lesions, warm and dry. HEART: no murmurs, regular rate and rhythm. LUNGS: clear to auscultation bilaterally. ABDOMEN: soft, nontender. EXTREMITIES: no edema. PERIPHERAL PULSES: equal. NEUROLOGIC: No gross deficits, AAO X 3 Office Procedures EKG Details: Sinus rhythm 64 beats per minute, normal axis, normal ECG, QTC 425 milliseconds. [id number], Complete Assessment & Plan Assessment & Plan (1) HTN (hypertension): Code(s): I10 - Essential (primary) hypertension Category: Medical Qualifiers: Hypertension type: primary hypertension Qualified Code(s): I10 - Essential (primary) hypertension (2) Syncope: Code(s): R55 - Syncope and collapse Category: Medical Qualifiers: Syncope type: unspecified Qualified Code(s): R55 - Syncope and collapse Plan Pleasant 54-year-old female who is here for follow-up. She has background of hypertension. Blood pressure control is good. She is again complaining of some lightheadedness and dizziness. I have advised her to stop the hydrochlorothiazide. No significant palpitations on follow-up. She is taking propranolol. Follow-up in 6 months. Thank you for allowing me to participate in the care of your patient. Please feel free to contact me if you have any questions. Coding Level of Care Code Est Pt Level 3 (98642) Diagnoses Primary hypertension I10 Hypertension type: primary hypertension Syncope, unspecified syncope type R55 Syncope type: unspecified CPT Codes EKG - CPT: 13924-Pfaksxcedomkixfta, Complete ([id number])
== END 2024-10-02 13:32 | disposition home or self-care (01) ==
PROVIDERS: PCP Family Medicine; Visit Provider Internal Medicine Cardiovascular Disease
DX: I10 Essential (primary) hypertension (principal); R55 Syncope and collapse
CPT/HCPCS: 93010; 99213

== ENCOUNTER → 2024-10-02 12:52 | Outpatient (BNVA) | payer OTHER, MEDICAID, SELFPAY | PROVIDERS: PCP Family Medicine; Visit Provider Internal Medicine Cardiovascular Disease | DX: I10 Essential (primary) hypertension (principal); R55 Syncope and collapse; M25.562 Pain in left knee | CPT/HCPCS: 93005; 99212 ==

== ENCOUNTER 2024-11-03 09:13 | Outpatient (AMB) | payer OTHER, SELFPAY ==
--- NOTE | 2024-11-03 09:23 | MHC.OFFVIS ---
Vital Signs 11/03/24 09:35 Height 5 ft 3 in Weight 175 lb 11.335 oz BMI 31.1 BP 122/76 Blood Pressure Location Rt brachial Position Sitting Pulse 78 Pulse Source Pulse Oximeter Intake Visit Reasons: Adrenal nodule Intake Note: Patient present today for adrenal nodule office visit. Manager Report Required: Yes Manager Report Language: Automatic Drilling Machine Operator Services: Manager Report Present Manager Report Name: Vi Information Interpreted: non-clinical & clinical Accompanied by: Self / Same As Patient Allergies No Known Allergies Allergy (Verified 11/03/24 09:41) Medication List - Last Reconciled 11/03/24 by Jina Vences MD amlodipine 10 mg PO QAM blood pressure test kit-large As directed buspirone 30 mg PO BID cetirizine 10 mg PO QAM cholecalciferol (vitamin D3) (Vitamin D3) 25 mcg PO QAM duloxetine 60 mg PO BEDTIME duloxetine 30 mg PO QAM esomeprazole magnesium 40 mg PO DAILY fluticasone propion-salmeterol 500-50 mcg/dose 1 ea inhalation BID fluticasone propionate 50 mcg/actuation 1 spray intranasal DAILY gabapentin 300 mg PO TID hydrochlorothiazide 25 mg PO DAILY lisinopril 20 mg PO QAM 90 days mesalamine ER (Apriso) 1.5 grams (4 x 0.375 gram) PO QAM ondansetron HCl (Zofran) 4 mg PO Q8H PRN polyethylene glycol 3350 (ClearLax) 17 grams PO BID primidone 50 mg PO BEDTIME propranolol 80 mg PO DAILY zolpidem 10 mg PO BEDTIME HPI Comments Details: 54-year-old female here today to establish care for 1 cm left adrenal incidentaloma. CT abdomen 08/07/2024 showed a 9 mm isodense nodule measuring 40 Hounsfield units. Non IV contrast study. I reviewed the images myself. She also had a CT abdomen from 2020 which also showed this nodule and nodule remained stable in size from then. Symptoms: HTN is well controlled on lisinopril 20 mg daily, HCTZ 25 mg daily, propranolol 80 mg daily and amlodipine 10 mg daily HTN diagnosed in 30s , no history of FL or stroke Father of stroke due to HTN emergency ( at age 71) Maternal cousin at agr 36 from stroke Maternal uncle age 34 from stroke Weight stable over past 2 years No history of DM, is prediabetic No fractures No hirsutism,severe acne , Does report headaches , chronic , says she has a history of migraines SILVER on CPAP , headaches improved with CPAP use denies any hx of proximal muscle weakness, ,no abdominal striae reports easy bruisability no skin infection or hyperpigmentation. -No truncal obesity,facial plethora or recent mood change. Has hx of depression. well controlled on meds - no episodic palpitaions, pallor,, diaphoresis . -Does report episodic abd pain , associated with bowel movement Physical exam General: sitting comfortably in no acute distress HEENT: normocephalic/atraumatic, Neck: supple, symmetrical, no thyromegaly , does have dorsocervical and supraclavicular fat pads Cardiac: normal heart sounds Pulm: normal breath sounds B/L, no added breath sounds Abd: not distended, no tenderness Extremities: no edema, no signs of myxedema Neuro: AAO x3, Speech: normal, no facial droop, moving all 4 extremities Laboratory Tests 07/08/24 09:02 Sodium 141 Potassium 3.8 Creatinine 0.72 Estimated GFR > [address] ABDOMEN WITHOUT CONTRAST 08/07/24 CLINICAL INFORMATION: Follow-up adrenal gland mass. COMPARISON: CT dated August 27, 2023. TECHNIQUE: Contiguous axial thin section helical images of the abdomen were performed without contrast. The data set was reformatted in the coronal and sagittal planes and reviewed on an independent workstation. This CT examination was performed using dose optimization techniques as appropriate, variously including the following: *Automated exposure control *Adjustment of mA and/or kV according to patient size (this includes techniques or standardized protocols for targeted exams where dose is matched to indication/reason for exam; i.e. extremities or head) *Use of iterative reconstruction technique DLP: 274 mGy-cm FINDINGS: Submitted for interpretation on October 06, 2024. Left adrenal gland: There is a 9 mm isodense nodule measuring 40 Hounsfield units in the non-IV contrast exam. Right adrenal gland: No nodular lesion. Inadequate evaluation of the intra-abdominal organs and vascular structures due to lack of IV contrast. No intestinal obstruction pattern. No ascites. No pneumoperitoneum. No pneumatosis intestinalis. Lymphadenopathy, mediastinum Liver measures 15 cm. No pericholecystic fluid collection or gallbladder wall thickening. No intrahepatic or extrahepatic biliary ductal dilatation. Spleen measures 7 cm. No peripancreatic fluid collection or main pancreatic ductal dilatation. No hydronephrosis or nephrolithiasis. No aneurysm in the abdominal aorta. Fat-containing umbilical hernia. No acute airspace disease or gross pulmonary nodules in the included lungs. No acute fracture or listhesis. No lytic or blastic lesions. CT/CT abdomen wo IV con IMPRESSION: 9 mm nodule, left adrenal gland. Incomplete evaluation. Lymphadenopathy, mesenteric. Fat-containing umbilical hernia. Fleischner guidelines were followed. Electronically signed by: Jonatan Marcelino MD 10/06/2024 10:[address] ABDOMEN AND PELVIS WITH CONTRAST 09/24/21 CLINICAL INFORMATION: Upper abdominal pain with nausea. COMPARISON: CT abdomen and pelvis noncontrast 06/02/2018, ultrasound abdomen 09/24/2021; 3-D digital breast tomosynthesis 10/30/2020. TECHNIQUE: Multidetector volumetric images were obtained from the superior aspect of the liver through the pubic symphysis following administration 85 mL of Omnipaque 350 intravenous contrast. Sagittal and coronal reformatted images were obtained on the technologist's workstation. Oral contrast: No This CT examination was performed using dose optimization techniques as appropriate, variously including the following: *Automated exposure control *Adjustment of mA and/or kV according to patient size (this includes techniques or standardized protocols for targeted exams where dose is matched to indication/reason for exam; i.e. extremities or head) *Use of iterative reconstruction technique DLP: 661 mGy-cm FINDINGS: LUNG BASES: The visualized lung bases are unremarkable. There is a known fibroadenoma left breast with biopsy clip marker, similar to prior mammography. LIVER, GALLBLADDER, AND BILIARY TREE: The liver is normal in size, shape, and attenuation. No focal hepatic lesion or biliary ductal dilatation is present. The gallbladder is unremarkable with no evidence of radiopaque gallstones, gallbladder wall thickening, or obvious pericholecystic inflammatory changes. PANCREAS: Unremarkable. SPLEEN: Unremarkable. ADRENAL GLANDS: Right adrenal normal. There is a stable solid nodule left adrenal under 1 cm (31 HU attenuation on prior noncontrast CT and 85 HU on current exam with contrast). No additional imaging follow-up recommended. KIDNEYS AND URETERS: The kidneys are normal in size and enhance symmetrically. There is no hydronephrosis, hydroureter, calculi, or perinephric stranding. There is incidental 0.8 cm cyst medial mid right kidney. No additional imaging follow-up required. BLADDER: Unremarkable. GASTROINTESTINAL TRACT: There is no bowel obstruction or focal inflammatory changes in the bowel or mesentery. The appendix is normal. There are fluid-filled loops of small bowel of normal caliber. No pneumatosis or free air. No ascites or fluid collection. ABDOMINAL WALL: Small fat-containing umbilical hernia under 3 cm. LYMPH NODES: No lymphadenopathy. VASCULAR: Unremarkable. PELVIC VISCERA: Unremarkable. OSSEOUS STRUCTURES: Unremarkable. CT/CT abdomen pelvis w con IMPRESSION: 1. Scattered fluid-filled small bowel of normal caliber. No wall thickening or obstruction. Normal appendix. 2. No cholelithiasis or ductal dilatation. No hydronephrosis or perinephric stranding. 3. No hydronephrosis or calculi. [facility] Medical History (Updated 11/03/24 @ 10:24 by Jina Vences MD) Adrenal incidentaloma Back pain Pre-diabetes GERD (gastroesophageal reflux disease) Fibromyalgia Bipolar disorder Insomnia Anxiety Depression Syncope Mild intermittent asthma NAFLD (nonalcoholic fatty liver disease) Vertigo Sleep apnea IBS (irritable bowel syndrome) Arthritis HTN (hypertension) Surgical History Hx of colonoscopy History of esophagogastroduodenoscopy (EGD) History of hysterectomy Family History Father Diabetes Arthritis Hypertension Hypercholesteremia Cancer Mother Diabetes Hypertension Arthritis Cancer Son Asthma Son Asthma Heart problem Social History Are you a primary child care provider to a significant other at home: No Do you presently have visiting nurse or other home services: Yes (son is B[employer]LE HOUSE QUALITY CONTROL TECHNICIAN / [employer] 2X/year for nurse check-up) Alcohol intake: never Patient Tobacco Use Status: Never used Tobacco Current occupational status: retired Physical Exam Vital Signs: Last Vital Signs Pulse 78 11/03/24 09:35 BP 122/76 11/03/24 09:35 BMI result Body Mass Index 31.1 Assessment & Plan Assessment & Plan (1) Adrenal incidentaloma: Code(s): E27.8 - Other specified disorders of adrenal gland Category: Medical Plan: 54-year-old female coming in today for initial evaluation of left 1 cm adrenal incidentaloma. She had CT scan in August 2024 which showed 9 mm left-sided adrenal nodule with 40 Hounsfield unit, which is stable from size compared to CT scan in 2020 when this measured 9 mm, with precontrast 31 Hounsfield units and postcontrast 85 Hounsfield units. Given stability in size this is reassuring of most likely a benign nodule. However Hounsfield units are on the higher side hence I would plan to repeat a CT focused on adrenal gland with the adrenal gland washout in 08/2025. ? Most adrenal masses are noncancerous or benign adrenal adenomas. ?However they can occasionally be functional and the hormones that are produced can cause clinical problems.??She has not been screened for any hormonal excess; although low clinical suspicion for pheochromocytoma; given the high Hounsfield units; I will err on the side of caution and screen with plasma free metanephrines with his blood work today. ? She does have hypertension requiring 4 medications for controlling blood pressure, we will check aldosterone and plasma renin activity. ? We will check a 1 mg overnight dexamethasone suppression test However has no specific clinical features of Analy syndrome. ? The greatest likelihood is that this will be a nonfunctional benign adrenal adenoma that does not need to be removed. ?However we want to be careful that we have excluded all the other possibilities?first.? ? Plan: -ordered plasma metanephrine normetanephrine levels, plasma aldosterone, renin activity, BMP, acth, cortisol, DHEA-S levels -ordered dexamethasone suppression test -follow up in 4 weeks to discuss results -plan to repeat CT with the adrenal washout in 08/2025 Plan I spent 45 minutes in reviewing the record, seeing the patient and documenting in the medical record. Orders: Orders Adrenocorticotropic Hormone 11/06/24 E27.8 - Other specified disorders of adrenal gland DHEA Sulfate 11/06/24 E27.8 - Other specified disorders of adrenal gland Metanephrines, Plasma 11/06/24 E27.8 - Other specified disorders of adrenal gland Aldosterone 11/06/24 E27.8 - Other specified disorders of adrenal gland Dexamethasone 11/10/24 E27.8 - Other specified disorders of adrenal gland Cortisol Random 11/06/24 E27.8 - Other specified disorders of adrenal gland Renin 11/06/24 E27.8 - Other specified disorders of adrenal gland Basic Metabolic Panel 11/06/24 E27.8 - Other specified disorders of adrenal gland Adrenocorticotropic Hormone 11/10/24 E27.8 - Other specified disorders of adrenal gland Cortisol Random 11/10/24 E27.8 - Other specified disorders of adrenal gland Medications: New dexamethasone Take 1 pill at 11 pm at night and do blood work at 8 AM next day 1 mg PO DAILY 1 tab 0RF Patient Instructions: Do a set of blood work on Wednesday11/06/24 Do a dexamethasone suppression test by taking pill at 11 pm at night on 11/09/24 and then do blood work at 8 AM on Wednesday11/10/24 Dexamethasone suppression test I would like you to do a dexamethasone suppression test to rule out Cushings syndrome. You will take a 1 mg pill of dexamethasone at 11 PM and then have a blood draw for cortisol at 8AM the next morning. It is important to make sure you take the dexamethasone at 11 PM and have the blood test as close to 8AM as possible. Raad germain serie de an?lisis de blake el lun04/01/25. Raad germain prueba de supresi?n de dexametasona tomando la pastilla a las 11 p.m. de la noche el jueves 07/02/25 y luego raad un an?lisis de blake a las 8 a.m. el viernes 08/01/25. Prueba de supresi?n con dexametasona Me gustar?a que me hicieran germain prueba de supresi?n con dexametasona para descartar el s?ndrome de Goodwin. Walt? germain pastilla de dexametasona de 1 mg a las 11 p.m. y luego le extraer?n blake para medir el cortisol a las 8 a.m. de la ma?renetta siguiente. Es importante asegurarse de walt la dexametasona a las 11 p.m. y hacerse el an?lisis de blake lo m?s cerca posible de las 8 a.m. Coding Level of Care Code New Pt Level 4 (82859) Diagnoses Adrenal incidentaloma E27.8 Time Spent (min) 45
[2024-11-03 09:35] VITALS: BP 122/76; PULSE 78; BMI 31.1
== END 2024-11-03 10:36 | disposition home or self-care (01) ==
PROVIDERS: PCP Family Medicine; Visit Provider Student in an Organized Health Care Education/Training Program
DX: E27.8 Other specified disorders of adrenal gland (principal)
CPT/HCPCS: 99204

== ENCOUNTER → 2024-11-03 09:13 | Outpatient (BNVA) | payer OTHER, SELFPAY | PROVIDERS: PCP Family Medicine; Visit Provider Student in an Organized Health Care Education/Training Program | DX: E27.8 Other specified disorders of adrenal gland (principal) | CPT/HCPCS: 99202 ==

== ENCOUNTER 2024-11-06 07:33 | Outpatient (REF) | payer OTHER, SELFPAY ==
[2024-11-06 09:07] LABS: Anion Gap 12 (12-20); Blood Urea Nitrogen 23 mg/dL (9-16); Calcium 9.8 mg/dL (8.4-10.2); Carbon Dioxide 25 mmol/L (22-29); Chloride 109 mmol/L (96-108); Estimated Glomerular Filt Rate > 60; Glucose Random 75 mg/dL (60-115); Sodium 142 mmol/L (135-145)
[2024-11-06 11:37] LABS: Cortisol Random 11.1 ug/dL
[2024-11-08 22:24] LABS: DHEA Sulfate 74 mcg/dL (5-167)
[2024-11-10 21:23] LABS: Adrenocorticotropic Hormone 16 pg/mL (6-50)
[2024-11-12 09:03] LABS: Metanephrine, Free 49 pg/mL (<=57); Normetanephrines, Free 81 pg/mL (<=148); Total Metanephrine, Free 130 pg/mL (<=205)
[2024-11-13 12:34] LABS: Renin 0.85 ng/mL/h (0.25-5.82)
== END 2024-11-06 07:34 | disposition home or self-care (01) ==
LOC: HO.LAB 07:33
PROVIDERS: PCP Family Medicine; Visit Provider Student in an Organized Health Care Education/Training Program
DX: E27.8 Other specified disorders of adrenal gland (principal)
CPT/HCPCS: 36415; 80048; 82024; 82088; 82533; 82627; 83835; 84244; 99212

== ENCOUNTER 2024-11-06 09:48 | Outpatient (REF) | payer OTHER, SELFPAY ==
--- NOTE | ~2024-11-06 | XR_ITS ---
EXAMINATION: XR KNEE 3 VIEWS LEFT, XR KNEE 1 VIEW RIGHT HISTORY: M25.562 - Pain in left knee COMPARISON: Comparison is made with the prior examination dated 07/21/2023. FINDINGS: Three views of the left knee and a single standing AP view of the right knee are submitted. Osseous mineralization is normal. There is no fracture or dislocation. There is mild tricompartmental osteoarthritis without significant change from the prior study. On the right, there is mild narrowing of medial compartment. The soft tissues are unremarkable. XR/XR knee RT 1V IMPRESSION: Mild tricompartmental osteoarthritis of the left. Electronically signed by: Elder Esparza MD 11/09/2024 12:45 PM EST
--- NOTE | ~2024-11-06 | XR_ITS ---
EXAMINATION: XR KNEE 3 VIEWS LEFT, XR KNEE 1 VIEW RIGHT HISTORY: M25.562 - Pain in left knee COMPARISON: Comparison is made with the prior examination dated 07/21/2023. FINDINGS: Three views of the left knee and a single standing AP view of the right knee are submitted. Osseous mineralization is normal. There is no fracture or dislocation. There is mild tricompartmental osteoarthritis without significant change from the prior study. On the right, there is mild narrowing of medial compartment. The soft tissues are unremarkable. XR/XR knee LT 3V IMPRESSION: Mild tricompartmental osteoarthritis of the left. Electronically signed by: Elder Epsarza MD 11/09/2024 12:45 PM EST
== END 2024-11-06 09:49 | disposition home or self-care (01) ==
LOC: HO.HOSX 09:48
PROVIDERS: Visit Provider Physician Assistant
DX: M25.561 Pain in right knee (principal); M25.562 Pain in left knee; E27.8 Other specified disorders of adrenal gland; M17.0 Bilateral primary osteoarthritis of knee; M23.92 Unspecified internal derangement of left knee
CPT/HCPCS: 36415; 73560; 73562; 80048; 82024; 82088; 82533; 82627; 83835; 84244; 99212

== ENCOUNTER 2024-11-06 12:45 | Outpatient (AMB) | payer OTHER, SELFPAY ==
--- NOTE | 2024-11-06 12:52 | A.OFFVIS_ITS ---
Vital Signs 11/06/24 13:13 Height 5 ft 3 in Weight 175 lb BMI 31.0 Intake Visit Reasons: ov- LT knee pain Intake Note: Lety a 54 year old female who presents today for a follow up on left knee pain, last injection on 07/21/23. Patient reports last injection provided her with little relief. Currently she has constant pain that has gotten worse about a month ago making it difficult to ambulate. Her pain is located around her knee cap at the anterior aspect of knee as well as ongoing swelling. Denies any traumatic injury. Finds no relief with ibuprofen and this causes GI upset. She mentions having an upcoming hernia repair surgery this week. Customer Success Director Required: Yes Customer Success Director Services: Customer Success Director Present Customer Success Director Name: Kyle ID#[id number] Allergies No Known Allergies Allergy (Verified 11/06/24 13:11) Medication List - Last Reconciled 11/06/24 by Ariel Morocho PA-C amlodipine 10 mg PO QAM blood pressure test kit-large As directed buspirone 30 mg PO BID cetirizine 10 mg PO QAM cholecalciferol (vitamin D3) (Vitamin D3) 25 mcg PO QAM dexamethasone 1 mg PO DAILY duloxetine 60 mg PO BEDTIME duloxetine 30 mg PO QAM esomeprazole magnesium 40 mg PO DAILY fluticasone propion-salmeterol 500-50 mcg/dose 1 ea inhalation BID fluticasone propionate 50 mcg/actuation 1 spray intranasal DAILY gabapentin 300 mg PO TID hydrochlorothiazide 25 mg PO DAILY lisinopril 20 mg PO QAM 90 days mesalamine ER (Apriso) 1.5 grams (4 x 0.375 gram) PO QAM ondansetron HCl (Zofran) 4 mg PO Q8H PRN polyethylene glycol 3350 (ClearLax) 17 grams PO BID primidone 50 mg PO BEDTIME propranolol 80 mg PO DAILY zolpidem 10 mg PO BEDTIME HPI HPI ov- LT knee pain: Details: 54 yo female returns to the office today f/u lt knee pain s/p injection 09/2023. She states the first few days after the injection she had relief but the pain did return and feels it is worse. She locates the pain as being around the anterior portion of the knee. She has pain with going up and down stairs and with prolonged walking. [facility] Medical History (Updated 11/06/24 @ 13:24 by Ariel Morocho PA-C) Adrenal incidentaloma Back pain Pre-diabetes GERD (gastroesophageal reflux disease) Fibromyalgia Bipolar disorder Insomnia Anxiety Depression Syncope Mild intermittent asthma NAFLD (nonalcoholic fatty liver disease) Vertigo Sleep apnea IBS (irritable bowel syndrome) Arthritis HTN (hypertension) Surgical History Hx of colonoscopy History of esophagogastroduodenoscopy (EGD) History of hysterectomy Family History Father Diabetes Arthritis Hypertension Hypercholesteremia Cancer Mother Diabetes Hypertension Arthritis Cancer Son Asthma Son Asthma Heart problem Social History Are you a primary manager care management to a significant other at home: No Do you presently have visiting nurse or other home services: Yes (son is SOFTWARE DEVELOPMENT ENGINEER / [employer] 2X/year for nurse check-up) Alcohol intake: never Patient Tobacco Use Status: Never used Tobacco Current occupational status: retired Review of Systems Const All systems reviewed & are unremarkable except as noted in HPI and below Physical Exam Vital Signs: BMI result Body Mass Index 31.0 Extrem Other: Left knee: Skin intact, no erythema or joint effusion. Lateral retropatellar tenderness present. Full ROM with crepitus. Positive Max?s. No ligamentous laxity. NVI. Results Reviewed Results Reviewed: Xrays were obtained in the office today and personally reviewed by me of the left knee show mild oa, with pf oa Assessment & Plan Assessment & Plan (1) Osteoarthritis of knees, bilateral: Code(s): M17.0 - Bilateral primary osteoarthritis of knee Category: Medical Qualifiers: Osteoarthritis type: primary Qualified Code(s): M17.0 - Bilateral primary osteoarthritis of knee (2) Internal derangement of left knee: Code(s): M23.92 - Unspecified internal derangement of left knee Category: Medical Plan Based on her clinical exam findings and positive Max's and MRI of the left knee has been ordered to further evaluate the integrity of the meniscus. Once the scan is complete she will see us back to determine the next step in her treatment plan. Orders: Orders XR knee LT 3V Today M25.562 - Pain in left knee MR knee LT wo con Today M17.12 - Unilateral primary osteoarthritis, left knee XR knee RT 1V Today M25.561 - Pain in right knee Coding Level of Care Code Est Pt Level 3 (80842) Complex EM visit Add On G2211 Diagnoses Primary osteoarthritis of both knees M17.0 Osteoarthritis type: primary Internal derangement of left knee M23.92
[2024-11-06 13:13] VITALS: BMI 31.0
== END 2024-11-06 13:24 | disposition home or self-care (01) ==
PROVIDERS: PCP Family Medicine; Visit Provider Physician Assistant
DX: M17.0 Bilateral primary osteoarthritis of knee (principal); M23.92 Unspecified internal derangement of left knee
CPT/HCPCS: 99213; G2211

== ENCOUNTER → 2024-11-06 12:48 | Outpatient (BNV) | payer OTHER, SELFPAY | PROVIDERS: Visit Provider Radiology Diagnostic Radiology | DX: M17.0 Bilateral primary osteoarthritis of knee (principal) | CPT/HCPCS: 73560; 73562 ==

== ENCOUNTER 2024-11-09 16:33 | Outpatient (REF) | payer MEDICARE, SELFPAY ==
--- NOTE | ~2024-11-09 | CT_ITS ---
EXAMINATION: CT ABDOMEN PELVIS WITHOUT IV CONTRAST HISTORY: K42.9 - Umbilical hernia without obstruction or gangrene COMPARISON: Comparison is made with the prior examination dated 06/07/2024. TECHNIQUE: CT scan of the abdomen and pelvis was performed without contrast using standard departmental protocol. Coronal and sagittal reformatted images were generated and reviewed. Oral contrast material was not administered at the request of the referring physician. This CT exam was performed with one or more of the following dose reduction techniques: automated exposure control, adjustment of the mA and/or kV according to patient size, use of iterative reconstruction technique. DLP: 506 mGy-cm FINDINGS: LOWER CHEST: The visualized lung bases are clear. There is no pleural effusion. CARDIOVASCULATURE: The heart is normal in size. There is no pericardial effusion. LIVER: The liver is normal in size and contour. The liver has an unremarkable unenhanced appearance. GALLBLADDER / BILE DUCTS: The gallbladder is contracted, without evidence of calcified stones. There is no intra or extrahepatic biliary ductal dilatation. SPLEEN: The spleen is normal in size and has an unremarkable unenhanced appearance. PANCREAS: The pancreas has an unremarkable unenhanced appearance. ADRENAL GLANDS: The right adrenal gland is unremarkable. Again seen is a 10 mm left adrenal nodule. KIDNEYS/RETROPERITONEUM: No renal calculi are identified. There is no hydronephrosis. LYMPH NODES: No retroperitoneal lymphadenopathy is identified in the abdomen or pelvis. VASCULATURE: The abdominal aorta is normal in caliber. MESENTERY/PERITONEUM: No free fluid. No masses. There is no free intraperitoneal gas. STOMACH: There is a large amount of debris in the stomach. SMALL BOWEL: The small bowel is normal in caliber. COLON: There is a moderate amount of stool throughout the colon. APPENDIX: Normal. URINARY BLADDER/PELVIC ORGANS: The urinary bladder is collapsed, limiting evaluation. The uterus has an unremarkable unenhanced appearance. BONES / SOFT TISSUES: Again seen is a small fat-containing umbilical hernia. The neck of the hernia measures approximately 8 mm in size. No suspicious bony or soft tissue abnormalities. CT/CT abdomen pelvis wo IV con IMPRESSION: 1. Stable small fat-containing umbilical hernia. 2. Stable 10 mm left adrenal nodule which likely represents an adenoma. Electronically signed by: Elder Esparza MD 11/13/2024 01:17 PM [facility]
== END 2024-11-09 16:34 | disposition home or self-care (01) ==
LOC: HO.CT 16:33
PROVIDERS: PCP Family Medicine; Visit Provider Surgery
DX: K42.9 Umbilical hernia without obstruction or gangrene (principal)
CPT/HCPCS: 74176

== ENCOUNTER → 2024-11-09 16:35 | Outpatient (BNV) | payer MEDICARE, SELFPAY | PROVIDERS: PCP Family Medicine; Visit Provider Radiology Diagnostic Radiology | DX: E27.9 Disorder of adrenal gland, unspecified (principal); K42.9 Umbilical hernia without obstruction or gangrene | CPT/HCPCS: 74176 ==

== ENCOUNTER 2024-11-10 07:28 | Outpatient (REF) | payer MEDICARE, SELFPAY ==
[2024-11-10 09:22] LABS: Cortisol Random < 1.0 ug/dL
[2024-11-14 21:47] LABS: Adrenocorticotropic Hormone <5 pg/mL (6-50)
[2024-11-19 19:38] LABS: Dexamethasone 260 ng/dL
== END 2024-11-10 07:29 | disposition home or self-care (01) ==
LOC: HO.LAB 07:28
PROVIDERS: PCP Family Medicine; Visit Provider Student in an Organized Health Care Education/Training Program
DX: E27.8 Other specified disorders of adrenal gland (principal)
CPT/HCPCS: 36415; 80299; 82024; 82533

== ENCOUNTER 2024-11-11 19:36 | Outpatient (REF) | payer MEDICARE, SELFPAY ==
--- NOTE | ~2024-11-11 | MR_ITS ---
EXAMINATION: MRI LEFT KNEE WITHOUT CONTRAST HISTORY: M17.12 - Unilateral primary osteoarthritis, left knee COMPARISON: Correlation is made with plain films of the left knee dated 11/06/2024. TECHNIQUE: Coronal T1 and fat-suppressed proton density, sagittal proton density and fat-suppressed proton density, and axial fat suppressed T2 weighted MR images of the left knee were obtained. FINDINGS: Bone marrow signal intensity is normal. There is a moderate suprapatellar joint effusion. There is no Gatica's cyst. There is an approximately 2.0 cm multiseptated cystic structure posterior to the medial tibial plateau, which may represent a ganglion cyst. The anterior and posterior cruciate ligaments and medial and lateral collateral ligaments are intact. The medial and lateral menisci are intact. The patellar and quadriceps tendons and patellar retinacula are unremarkable in appearance. The popliteus tendon is intact. There is moderate osteoarthritis of the patellofemoral compartment with cartilage loss and subchondral marrow changes. Milder changes are noted involving the medial compartment. MR/MR knee LT wo con IMPRESSION: 1. Moderate joint effusion. 2.0 cm probable ganglion cyst posterior to the medial tibial plateau. 3. Moderate patellofemoral osteoarthritis. Mild osteoarthritis of the medial compartment. Electronically signed by: Elder Esparza MD 11/14/2024 08:33 AM [facility]
== END 2024-11-11 19:37 | disposition home or self-care (01) ==
LOC: HO.MRI 19:36
PROVIDERS: PCP Family Medicine; Visit Provider Physician Assistant
DX: M17.12 Unilateral primary osteoarthritis, left knee (principal)
CPT/HCPCS: 73721

== ENCOUNTER → 2024-11-11 19:52 | Outpatient (BNV) | payer MEDICARE, SELFPAY | PROVIDERS: PCP Family Medicine; Visit Provider Radiology Diagnostic Radiology | DX: M17.12 Unilateral primary osteoarthritis, left knee (principal); M25.462 Effusion, left knee | CPT/HCPCS: 73721 ==

== ENCOUNTER 2024-11-14 05:42 | Day surgery (SDC) | payer OTHER, SELFPAY ==
[2024-11-02 09:56] VITALS: BP 139/83; PULSE 65; RESP 20; O2SAT 97
[2024-11-02 10:08] VITALS: BMI 31.2
--- NOTE | 2024-11-02 10:16 | P.CONAN_ITS ---
Documented by User: Carmel Sandhu NP 11/02/24 10:21 HPI - Anesthesia Eval Consult details Narrative: 54yo F for Hernia Umbilical Reducible with mesh, 11/14/24 s/p Seymour 04/2024 with TIVA Follows [facility] [place] Cardiology - reported some dizziness and instructed to stop HCTZ. BP stable at PAT. Rare vertigo. SILVER - CPAP QHS Follows Neuro for benign tremors, on primidone PMFSH Active Problems Active Problems: All Active Problems Umbilical hernia (Acute) GERD (gastroesophageal reflux disease) (Acute) Numbness and tingling in both hands (Acute) Stiffness of joints of both hands (Acute) Left shoulder pain (Acute) Lightheadedness (Acute) Osteoarthritis of knees, bilateral (Acute) Fatigue (Acute) NAFLD (nonalcoholic fatty liver disease) (Acute) Syncope (Acute) IBS (irritable bowel syndrome) (Acute) Gallbladder polyp (Acute) HTN (hypertension) (Acute) Past Medical History Medical History Adrenal incidentaloma Back pain Pre-diabetes GERD (gastroesophageal reflux disease) Fibromyalgia Bipolar disorder Insomnia Anxiety Depression Syncope Mild intermittent asthma NAFLD (nonalcoholic fatty liver disease) Vertigo Sleep apnea IBS (irritable bowel syndrome) Arthritis HTN (hypertension) Family History Family History Father Diabetes Arthritis Hypertension Hypercholesteremia Cancer Mother Diabetes Hypertension Arthritis Cancer Son Asthma Son Asthma Heart problem Family history of problems with anesthesia: No Surgical History Surgical History Hx of colonoscopy History of esophagogastroduodenoscopy (EGD) History of hysterectomy History of Problems with Anesthesia: No Social History Social History Are you a primary respiratory care technician to a significant other at home: No Do you presently have visiting nurse or other home services: No Alcohol intake: never Patient Tobacco Use Status: Never used Tobacco Use of substances other than those prescribed or required for medical reasons: No Have you been hit, kicked, punched, or otherwise hurt by someone within the past year? If so, by whom?: No Spiritual Healthcare Practices: none Sikhism Healthcare Practices: Confucianist Cultural Healthcare Practices: none Are you DNR?: No Advance Directives: No (son is primary contact) Advance Directives Information Provided: Yes (as above noted) Advance Directives on File: No Recently lost weight without trying: No Eating poorly because of decreased appetite: No Nutrition Risks: No Nutritional Risk Patient : No FDLMP: n/a Poor oral hygiene: No (two extracted teeth lower-one on each side) Current occupational status: retired [employer] Allergies Allergy/AdvReac Type Severity Reaction Status Date / Time No Known Allergies Allergy Verified 11/14/24 06:11 Home Medications ?Medication ?Instructions ?Recorded ?Confirmed ?Last Taken ?Type amlodipine 10 mg tablet 10 mg PO QAM 04/03/22 11/06/24 04/04/24 History blood pressure test kit-large #1 ea 04/03/22 11/06/24 Unknown History buspirone 15 mg tablet 30 mg PO BID 04/03/22 11/06/24 Unknown History cholecalciferol (vitamin D3) 25 25 mcg PO QAM 04/03/22 11/06/24 Unknown History mcg (1,000 unit) capsule (Vitamin D3) zolpidem 10 mg tablet 10 mg PO BEDTIME 04/03/22 11/06/24 Unknown History gabapentin 300 mg capsule 300 mg PO TID 02/10/23 11/06/24 Unknown History fluticasone 500 mcg-salmeterol 50 1 ea inhalation BID 04/09/23 11/14/24 11/14/24 History mcg/dose blistr powdr for inhalation cetirizine 10 mg tablet 10 mg PO QAM 05/26/24 11/06/24 Unknown History fluticasone propionate 50 1 spray intranasal DAILY 05/26/24 11/06/24 Unknown History mcg/actuation nasal spray,suspension primidone 50 mg tablet 50 mg PO BEDTIME 05/26/24 11/06/24 Unknown History propranolol 80 mg tablet 80 mg PO DAILY 05/26/24 11/06/24 Unknown History duloxetine 60 mg capsule,delayed 60 mg PO BEDTIME 09/04/24 11/06/24 Unknown History release duloxetine 30 mg capsule,delayed 30 mg PO QAM 10/02/24 11/06/24 Unknown History release hydrochlorothiazide 25 mg tablet 25 mg PO DAILY 11/03/24 11/06/24 Unknown History Exam Height,Weight and Vital Signs: Last Vital Signs Pulse 65 11/02/24 09:56 Resp 20 11/02/24 09:56 BP 139/83 11/02/24 09:56 Pulse Ox 97 11/02/24 09:56 O2 Del Method Room Air 11/02/24 09:56 Pertinent Lab Results Pertinent Lab Results: Laboratory Tests 07/08/24 09:02 WBC 6.5 Hgb 12.4 Hct 37.2 Plt Count 324 Sodium 141 Potassium 3.8 Chloride 107 Carbon Dioxide 25 BUN 16 Creatinine 0.72 Narrative Narrative: EKG 10/2024 Details: Sinus rhythm 64 beats per minute, normal axis, normal ECG, QTC 425 milliseconds. ECHO 2022 Conclusions: - Essentially normal study Assessment and Plan Assessment Anesthesia Assessment: Chart Reviewed Final Anesthetic Review Family History of Problems with Anesthesia: No History of Problems with Anesthesia: No Documented by User: Lew Mcclain MD 11/14/24 08:29 [facility] Past Medical History Medical History Adrenal incidentaloma Back pain Pre-diabetes GERD (gastroesophageal reflux disease) Fibromyalgia Bipolar disorder Insomnia Anxiety Depression Syncope Mild intermittent asthma NAFLD (nonalcoholic fatty liver disease) Vertigo Sleep apnea IBS (irritable bowel syndrome) Arthritis HTN (hypertension) Family History Family History Father Diabetes Arthritis Hypertension Hypercholesteremia Cancer Mother Diabetes Hypertension Arthritis Cancer Son Asthma Son Asthma Heart problem Surgical History Surgical History Hx of colonoscopy History of esophagogastroduodenoscopy (EGD) History of hysterectomy Social History Social History Are you a primary respiratory care technician to a significant other at home: No Do you presently have visiting nurse or other home services: No Alcohol intake: never Patient Tobacco Use Status: Never used Tobacco Use of substances other than those prescribed or required for medical reasons: No Have you been hit, kicked, punched, or otherwise hurt by someone within the past year? If so, by whom?: No Spiritual Healthcare Practices: none Sikhism Healthcare Practices: Confucianist Cultural Healthcare Practices: none Are you DNR?: No Advance Directives: No (son is primary contact) Advance Directives Information Provided: Yes (as above noted) Advance Directives on File: No Recently lost weight without trying: No Eating poorly because of decreased appetite: No Nutrition Risks: No Nutritional Risk Patient : No FDLMP: n/a Poor oral hygiene: No (two extracted teeth lower-one on each side) Current occupational status: retired [employer] Allergies Allergy/AdvReac Type Severity Reaction Status Date / Time No Known Allergies Allergy Verified 11/14/24 06:11 Home Medications ?Medication ?Instructions ?Recorded ?Confirmed ?Last Taken ?Type amlodipine 10 mg tablet 10 mg PO QAM 04/03/22 11/06/24 04/04/24 History blood pressure test kit-large #1 ea 04/03/22 11/06/24 Unknown History buspirone 15 mg tablet 30 mg PO BID 04/03/22 11/06/24 Unknown History cholecalciferol (vitamin D3) 25 25 mcg PO QAM 04/03/22 11/06/24 Unknown History mcg (1,000 unit) capsule (Vitamin D3) zolpidem 10 mg tablet 10 mg PO BEDTIME 04/03/22 11/06/24 Unknown History gabapentin 300 mg capsule 300 mg PO TID 02/10/23 11/06/24 Unknown History fluticasone 500 mcg-salmeterol 50 1 ea inhalation BID 04/09/23 11/14/24 11/14/24 History mcg/dose blistr powdr for inhalation cetirizine 10 mg tablet 10 mg PO QAM 05/26/24 11/06/24 Unknown History fluticasone propionate 50 1 spray intranasal DAILY 05/26/24 11/06/24 Unknown History mcg/actuation nasal spray,suspension primidone 50 mg tablet 50 mg PO BEDTIME 05/26/24 11/06/24 Unknown History propranolol 80 mg tablet 80 mg PO DAILY 05/26/24 11/06/24 Unknown History duloxetine 60 mg capsule,delayed 60 mg PO BEDTIME 09/04/24 11/06/24 Unknown History release duloxetine 30 mg capsule,delayed 30 mg PO QAM 10/02/24 11/06/24 Unknown History release hydrochlorothiazide 25 mg tablet 25 mg PO DAILY 11/03/24 11/06/24 Unknown History Exam Airway Mallampati Class: II TM Dist: >3cm Neck ROM: Full Assessment and Plan Assessment Anesthesia Assessment: Anesthesia Plan Discussed Final Anesthetic Review NPO: Yes ASA Class: II Final Preanesthetic Review: No Changes in Pt Med Stat, Meds/Allgs Chart Reviewed, Consent Obtained/Reviewed and Anes Risks/Benef Reviewed Patient Risk: Low Procedure Risk: Low Anesthetic Plan Anesthetic Plan: GA Disposition: Standard PACU
[2024-11-14] VITALS (9 sets, daily range): BP systolic 122–139; BP diastolic 75–81; PULSE 63–89; RESP 12–15; TEMP 36.2–36.3; O2SAT 95–100; BMI 29.9
[2024-11-14] MEDS: Lactated Ringers 1,000 ML 100 ML IVCONT (06:38)
--- NOTE | 2024-11-14 07:16 | MHC.SHP ---
Pre-Procedural Eval Section A - 24 Hr Update-Section A only Date of Service: 11/14/24 Section B - Complete if H&P > 30 days Chief Complaint: Umbilical hernia without obstruction or gangrene Details of Present Illness: She has had this reducible mass on the umbilicus which she says has been bothering her. CT scan shows small fat containing umbilical hernia Relevant Family History (Specify if Yes): No Relevant Social History: None Present Medications: see Short Stay Collaborative assessment Medical History: Significant History (Obesity, GERD, hypertension, IBS) Allergies: Allergies Allergy/AdvReac Type Severity Reaction Status Date / Time No Known Allergies Allergy Verified 11/14/24 06:11 Review of Systems Sugical H&P ROS: Negative: Constitution, Cardiovascular, Respiratory and Genitourinary Exam Surgical H&P Exam: Normal: Heart and Normal: Lungs and Significant Findings: Extremities (Small umbilical hernia reducible) Plan Diagnosis/Plan: Unchanged I have reviewed the history and physical and performed a pertinent physical examination on my patient. No changes have occurred unless specified. Time Spent With Patient Time: Total time managing care of this patient today ____ minutes.
--- NOTE | 2024-11-14 08:09 | P.OP_ITS ---
Operative Note Operative Note Date of Service: 11/14/24 Narrative: Preop diagnosis: Umbilical hernia, reducible Postop diagnosis: Umbilical hernia, reducible, about 1 cm in diameter Procedure: Repair of umbilical hernia with Ventralex mesh Surgeon: Kendall Bates MD administrative office assistant: RAJINDER Gonzalez The patient is a 54 year old female with a small reducible umbilical hernia which was fat containing on CT scan. In view of her discomfort she wanted to proceed with repair. She understood the technique of repair with mesh. She was aware of the risks, benefits, and alternatives. She was brought to the operating room and placed supine under general anesthesia via laryngeal mask airway. The abdomen was prepped and draped in the usual sterile fashion. A surgical time-out was done. The patient received cefazolin 2 g IV preoperatively. I infiltrated the umbilical area with lidocaine 1%. I made a short supraumbilical transverse curvilinear incision with a blade 15. This was carried down with electrocautery through the full-thickness of the skin and subcutaneous fat. I proceeded to gently dissect the umbilicus off of the rest of the subcutaneous layer and the hernia. The hernia was seen and this was fat containing. I continued to dissect the hernia off of the rest of the subcutaneous layer down to the fascial defect. I the hernia contents from the fascial edges. This was completely reduced. The fascial edges were clear of adhesions. The fascial defect was about 1 cm in diameter. I used a small-sized Ventralex mesh and this was positioned underneath the fascial defect. I flattened the mesh. I secured both Prolene straps of the mesh to the fascial layer with Prolene 2-0 sutures. I trimmed the Prolene straps flush on the level of the fascial layer. I then closed the fascia with a [id number] Maxon 1 stitch The umbilicus was tacked down to the fascia to re-create the dimple with a Polysorb 3-0 stitch. Subcutaneous layer was reapposed with Polysorb 3-0 simple interrupted sutures. Skin closure was achieved with Polysorb 4-0 subcuticular running stitch. The area was infiltrated with Marcaine 0.5% for postop analgesia. Dressings were applied. The procedure was completed The patient tolerated the procedure well. There were no immediate complications. Initial and final counts of sponges and instruments were correct. Estimated blood loss was less than 5 cc. The patient was extubated with difficulty and transferred to the recovery room with stable vital signs.
[2024-11-14] MEDS: Ketorolac Tromethamine 30 MG/ML VIAL IVPUSH (08:53)
[2024-11-14] MEDS: oxyCODONE HCl Immed Release 5 MG TABLET PO (08:54)
[2024-11-14] MEDS: Acetaminophen 325 MG TABLET 975 MG PO (09:08)
[2024-11-14] MEDS: ondansetron HCL 4 MG/2 ML VIAL IVPUSH (09:42)
== END 2024-11-14 10:23 | disposition home or self-care (01) ==
PROVIDERS: PCP Family Medicine; Visit Provider Surgery
PROC: (CPT 49591; principal; 2024-11-14 07:30)
DX: K42.9 Umbilical hernia without obstruction or gangrene (principal); K76.0 Fatty (change of) liver, not elsewhere classified; K58.9 Irritable bowel syndrome, unspecified; J45.20 Mild intermittent asthma, uncomplicated; I10 Essential (primary) hypertension; R73.03 Prediabetes; M79.7 Fibromyalgia; R55 Syncope and collapse; G47.00 Insomnia, unspecified; G47.33 Obstructive sleep apnea (adult) (pediatric); Z79.51 Long term (current) use of inhaled steroids; Z79.899 Other long term (current) drug therapy; Z99.89 Dependence on other enabling machines and devices; F31.9 Bipolar disorder, unspecified
CPT/HCPCS: 49591; C1781; J0690; J1885; J2003; J2250; J2405; J2704; J2795; J3010

== ENCOUNTER → 2024-11-14 05:42 | Outpatient (BNV) | payer OTHER, SELFPAY | PROVIDERS: PCP Family Medicine; Visit Provider Surgery | DX: K42.9 Umbilical hernia without obstruction or gangrene (principal) | CPT/HCPCS: 49593 ==

== ENCOUNTER → 2024-11-27 10:38 | Outpatient (BNVA) | payer OTHER, MEDICAID, SELFPAY | PROVIDERS: PCP Family Medicine; Visit Provider Surgery | DX: Z09 Encounter for follow-up examination after completed treatment for conditions other than malignant neoplasm (principal); Z87.19 Personal history of other diseases of the digestive system; Z98.890 Other specified postprocedural states | CPT/HCPCS: 99212 ==

== ENCOUNTER 2024-11-27 13:35 | Outpatient (AMB) | payer OTHER, MEDICAID, SELFPAY ==
--- NOTE | 2024-11-27 13:46 | MHC.OFFVIS ---
Vital Signs 11/27/24 13:53 Height 5 ft 3 in Weight 174 lb 4 oz BMI 30.9 Intake Visit Reasons: S/P umbilical hernia w/mesh Intake Note: This patient presents for post-op assessment status post umbilical hernia repair with mesh. Pt c/o; pain/discomfort, occasional loss of appetite. Mastic Man Required: No Accompanied by: Self / Same As Patient Allergies No Known Allergies Allergy (Verified 11/27/24 13:54) HPI HPI S/P umbilical hernia w/mesh: Details: She is here for a follow-up after umbilical hernia repair with mesh last 11/14/2024. She tolerated procedure well She currently denies significant complaints. [facility] Medical History Adrenal incidentaloma Back pain Pre-diabetes GERD (gastroesophageal reflux disease) Fibromyalgia Bipolar disorder Insomnia Anxiety Depression Syncope Mild intermittent asthma NAFLD (nonalcoholic fatty liver disease) Vertigo Sleep apnea IBS (irritable bowel syndrome) Arthritis HTN (hypertension) Surgical History History of umbilical hernia repair (~11/14/24) Hx of colonoscopy History of esophagogastroduodenoscopy (EGD) History of hysterectomy Family History Father Diabetes Arthritis Hypertension Hypercholesteremia Cancer Mother Diabetes Hypertension Arthritis Cancer Son Asthma Son Asthma Heart problem Social History Are you a primary childcare center administrator to a significant other at home: No Do you presently have visiting nurse or other home services: No Alcohol intake: never Patient Tobacco Use Status: Never used Tobacco Current occupational status: retired Review of Systems Const Denies chills and Denies fever(s) Card Denies chest pain GI Denies vomiting Physical Exam Vital Signs: BMI result Body Mass Index 30.9 Const General: comfortable and no acute distress Resp Effort & Inspection: normal respiratory effort GI Other: Umbilical hernia repair site is well healed, not infected, repair intact Palpation (GI): Soft to palpation, not firm, nontender and no guarding Assessment & Plan Assessment & Plan (1) Umbilical hernia: Code(s): K42.9 - Umbilical hernia without obstruction or gangrene Category: Medical Plan: Status post repair with mesh. She is doing very well. Her incision is well healed. The repair site is intact. She can follow up on a p.r.n. basis I did instruct her to avoid any lifting more than 15 lb for 2 more weeks. Coding Level of Care Code Global (42708) Diagnoses Umbilical hernia K42.9
[2024-11-27 13:53] VITALS: BMI 30.9
--- OUTSIDE RECORDS SUMMARY | 2024-11-27 18:20 | XMS_ITS ---
Author Name MS. Aba Kirkpatrick APRN Address [address] [place] [address] Phone [phone] [facility] Care Team Providers Care Physician Underwriter Name Role Phone Debbie Kirkpatrick Unavailable [phone] Unavailable Unavailable Unavailable DOROTHEA NEAL Unavailable [phone] Carina Baird Unavailable Unavailable Unavailable Unavailable Unavailable Reason for Referral Not Available Allergies, adverse reactions, alerts No known allergies History of medication use Medication Class Instructions Start Date End Date Meclizine 25 mg Tab TAKE 1 TABLET BY JOSE TH TWICE DAILY NEEDED FOR DIZZINESS 2023-04-09 No Data Available Ciprofloxacin 500 mg Tab TAKE 1 TABLET B Y MOUTH TWICE DAILY FOR 14 DAYS 2023-04-09 No Data Available Zolpidem Tartrate 10 mg Tab TAKE 1 TABLE T BY MOUTH AT BEDTIME 2023-03-16 No Data Available hydroCHLOROthiazide 25 mg Tab TAKE 1 TAB LET BY MOUTH EVERY MORNING 2022-07-09 No Data Available Loratadine 10 mg Tab TAKE 1 TABLET BY MO UTH EVERY MORNING NEEDED FOR ALLERGIES 2023-04-28 No Data Available Medbox Status USE DIRECTED 2022-10-18 No Data Yoana ilable Vitamin D3 25 mcg (1,000 uni t) capsule TAKE 1 CAPSULE BY MOUTH EVERY MORNING 2023-01-26 No Data Available amLODIPine Besylate 10 mg Tab TAKE 1 TAB LET BY MOUTH EVERY MORNING 2022-07-09 No Data Available busPIRone 15 mg Tab TAKE 2 TABLETS BY MO UTH TWICE DAILY IN THE MORNING AND AT BEDTIME 2023-03-16 No Data Available DULoxetine 60 mg Cap delayed rel TAKE 1 CAPSULE BY MOUTH AT BEDTIME 2023-03-16 No Data Available Fluticasone-Salmeterol 500-5 0 MCG/ACT Aerosol Powder Breath Activated INHALE 1 PUFF BY MOUTH TWICE DAILY 2022-07-09 No Data Available Gabapentin 300 mg Cap TAKE 1 CAPSULE BY MOUTH THREE TIMES DAILY IN THE MORNING, EVENING, AND BEDTIME 2023-03-30 No Data Available HM ClearLax 17 GM/SCOOP Powder MIX 17 GR AMS IN WATER, COFFEE, OR TEA AND TAKE TWICE DAILY DIRECTED 2023-05-01 No Data Available Famotidine 20 mg Tab TAKE 1 TABLET BY MO UTH TWICE DAILY 2023-02-09 No Data Available Dicyclomine 10 mg Cap TAKE 1 CAPSULE BY MOUTH THREE TIMES DAILY 2023-08-13 No Data Available Ondansetron 4 mg Tab Disintegrating DISSOLVE 1 TABLET BY MOUTH EVERY 8 HOURS NEEDED FOR NAUSEA AND VOMITING 2023-08-27 No Data Available Lisinopril 20 mg Tab Take 1 tablet twice a day 2023-10-05 No Data Available VITAMIN D HIGH POTENCY 25 MC G (1000 UT) CAPS No Data Available 2023-07-22 No Data Available Propranolol 80 mg Tab TAKE 1 TABLET BY M OUTH TWICE DAILY IN THE MORNING AND IN THE EVENING 2023-11-30 No Data Available Primidone 50 mg Tab TAKE 1 TABLET BY JOSE AT BEDTIME 2024-02-15 No Data Available Fluticasone Propionate 50 MCG/ACT Suspension INSTILL 1-2 SPRAYS IN EACH NOSTRIL ONCE DAILY FOR 15 DAYS 2024-03-20 No Data Available Cetirizine 10 mg Tab TAKE 1 TABLET BY MO UTH EVERY MORNING 2024-03-20 No Data Available Amoxicillin-Pot Clavulanate 875/125 mg Tab TAKE 1 TABLET BY MOUTH TWICE DAILY FOR 10 DAYS 2024-03-20 No Data Available Albuterol Sulfate HFA 108 (9 0 Base) MCG/ACT Aerosol Solution Inhalation 1-2 puffs every 4-6 hrs, as needed for coughing or SOA 2024-04-25 No Data Available Problem List Problem Status Onset Date Resolved Date Major depressive disorder, r ecurrent, mild; ROBERTO; Insomnia Active 2023-10-05 N/A Vertigo Active 2023-10-05 N/A Neuropathic pain Active 2023-10-05 N/A Vitamin D deficiency Active 2023-10-05 N/A GERD (gastroesophageal reflux disease) Active 23-10-05 N/A Mild intermittent asthma Active 2023-10-05 N/A Essential hypertension Active 2023-10-05 N/A Other problems related to [facility] facilities and other health care Active 2024-04-25 N/A Encounters Encounters Type Facility Date of Service Diagnosis/Co mplaint New patient, 30-44min 1 stable chronic or 2 minor; add modifier 95 for video, modifier 93 for phone [facility], ([place]/2023 Major depressive disorder, recurrent, mildInsomnia, unspecifiedGeneralized anxiety disorderGastro-esophageal reflux disease without esophagitisDizziness and giddinessEssential (primary) hypertensionNeuralgia and neuritis, unspecifiedVitamin D deficiency, unspecifiedMild intermittent asthma, uncomplicated New patient, 30-44min 1 stable chronic or 2 minor; add modifier 95 for video, modifier 93 for phone [facility], ([place] 10/05/2023 New patient, 30-44min 1 stable chronic or 2 minor; add modifier 95 for video, modifier 93 for phone [facility], ([place] 10/05/2023 New patient, 30-44min 1 stable chronic or 2 minor; add modifier 95 for video, modifier 93 for phone [facility], ([place] 10/05/2023 New patient, 30-44min 1 stable chronic or 2 minor; add modifier 95 for video, modifier 93 for phone [facility] [place] 10/05/2023 New patient, 30-44min 1 stable chronic or 2 minor; add modifier 95 for video, modifier 93 for phone [facility], ([place] 10/05/2023 Estab. patient 30-39min; chronic exacerbation, 2 stable chronic or 1 acute illness add add modifier 95 for video, (do not use for phone, instead use [id number]) [facility], ([place]) 04/25/2024 Major depressive disorder, recurrent, mildInsomnia, unspecifiedGeneralized anxiety disorderGastro-esophageal reflux disease without esophagitisDizziness and giddinessEssential (primary) hypertensionNeuralgia and neuritis, unspecifiedVitamin D deficiency, unspecifiedMild intermittent asthma, uncomplicatedOther problems related to medical facilities and other health care Estab. patient 30-39min; chronic exacerbation, 2 stable chronic or 1 acute illness add add modifier 95 for video, (do not use for phone, instead use [id number]) [facility] 04[place] Estab. patient 30-39min; chronic exacerbation, 2 stable chronic or 1 acute illness add add modifier 95 for video, (do not use for phone, instead use [id number]) [facility], ([place] 04[place] Estab. patient 30-39min; chronic exacerbation, 2 stable chronic or 1 acute illness add add modifier 95 for video, (do not use for phone, instead use [id number]) [facility], ([place] 04[place]/20[place] Estab. patient 30-39min; chronic exacerbation, 2 stable chronic or 1 acute illness add add modifier 95 for video, (do not use for phone, instead use [id number]) [facility], ([place] 04[place] Estab. patient 30-39min; chronic exacerbation, 2 stable chronic or 1 acute illness add add modifier 95 for video, (do not use for phone, instead use 28827-87) [facility], ([place] 04[place]/20[place] Estab. patient 30-39min; chronic exacerbation, 2 stable chronic or 1 acute illness add add modifier 95 for video, (do not use for phone, instead use [id number]) [facility], ([place] 04[place] Estab. patient 30-39min; chronic exacerbation, 2 stable chronic or 1 acute illness add add modifier 95 for video, (do not use for phone, instead use [id number]) [facility], ([place] 04/[place]/20[place] Estab. patient 30-39min; chronic exacerbation, 2 stable chronic or 1 acute illness add add modifier 95 for video, (do not use for phone, instead use [id number]) [facility], ([place]) 04/25/2024 Unlisted special service; to be used for medical record reviews and reporting CPTII codes (1111F, etc) [facility], ([place]) 09/04/2024 Other specified health statu s Unlisted special service; to be used for medical record reviews and reporting CPTII codes (1111F, etc) [facility], ([place]) [place]/04/2024 Unlisted special service; to be used for medical record reviews and reporting CPTII codes (1111F, etc) [facility], ([place]) 09/04/2024 Vital Signs Date of Collection Vitals 2023-10-05 10:55:08 Height - 160.02 cmWe ight - 72.58 kgBody Mass Index (BMI) - 28.34 kg/m2 2024-04-25 07:01:00 Height - 160.02 cmWe ight - 72.12 kgBody Mass Index (BMI) - 28.17 kg/m2BP Diastolic - 88.0 mm[Hg]BP Systolic - 178.0 mm[Hg]Pain Scale - 8.0 {score} Social History Social History Social History Observation Description Effec tive Time Current Smoking Status Never smoker 2024-11-02 7 Sex Female History of Procedures Procedures Service Procedure code Service date Servicing provider Phone# New patient, 30-44min 1 stable chronic or 2 minor; add modifier 95 for video, modifier 93 for phone [id number] 2023-10-05 No Data Available No Data Available BMI obtained (3008F) 3008F 2023-10-05 No Data Availab le No Data Available Pain Assessment - Pain Documented on a Pain Scale (1125F) 1125F 2023-10-05 No Data Available No Data Yoana ilable Functional Status Assessed (1170F) 1170F 2023-10-05 No Data Available No Data Avail able Medication List Documented (1159F) 1159F 2023-10-05 No Data Available No Data Yoana ilable Medication Review by prescribing provider or pharmacist documented (1160F) 1160F 2023-10-05 No Data Available No Data Yoana ilable Estab. patient 30-39min; chronic exacerbation, 2 stable chronic or 1 acute illness add add modifier 95 for video, (do not use for phone, instead use 19720-00) 58676 2024-04-25 No Data Available No Data Availa ble Medication List Documented (1159F) 1159F 2024-04-25 No Data Available No Data Yoana ilable Medication Review by prescribing provider or pharmacist documented (1160F) 1160F 2024-04-25 No Data Available No Data Yoana ilable Pain Assessment - Pain Documented on a Pain Scale (1125F) 1125F 2024-04-25 No Data Available No Data Yoana ilable BMI obtained (3008F) 3008F 2024-04-25 No Data Availab le No Data Available Advance Care Directive Advance care planning discussion documented in the medical record (1158F) 1158F 2024-04-25 No Data Available No Data Availa ble Advance care planning discussed and documented ? advance care plan or surrogate decision-maker was documented in the medical record. (1123F) 1123F 2024-04-25 No Data Available No Data Availa ble Functional Status Assessed (1170F) 1170F 2024-04-25 No Data Available No Data Avail able Most recent A1c (HbA1c) or GMI level <7% (3044F) 3044F 2024-04-25 No Data Available No Data Availa ble Unlisted special service; to be used for medical record reviews and reporting CPTII codes (1111F, etc) 59631 2024-09-04 No Data Available No Data Availa ble SBP < 130 (3074F) 3074F 2024-09-04 No Data Available No Data Available DBP <80 (3078F) 3078F 2024-09-04 No Data Available No Data Available Functional Status Functional Category Effective Dates TOWEL HEMMER assists with cooking, cl eaning, laundry, showering and dressing. Pt reports using assistive device of cane. 2023-10-05 Instrumental Activities of Daily Living (4): 2024-04-25 Medication: Independent 2024-04-25 Meal Preparation Needs Assistance 04-25 Shopping: Needs Assistance 2024-04-25 Driving/Using Public Transportation: Nee ds Assistance 2024-04-25 Housework/Cleaning: Needs Assistance 02-04-25 Laundry: Needs Assistance 2024-04-25 Handling Finances: Independent 2024-04-02 Activities of Daily Livin2024-04-25 Bathing: Needs Assistance 2024-04-25 Dressing: Needs Assistance 2024-04-25 Eating: Independent 2024-04-25 Ambulation/Walking: Needs Assistance 02-04-25 Toileting: Needs Assistance 2024-04-25 Transferring: Needs Assistance 2024-04-02 5 Mental Status Status Date AOx3 2023-10-05 Forgetful at times 2024-04-25 Assessments Date of Service Assessments 2023-10-05 10:55:08 Major depressive dis order, recurrent, mild; ROBERTO; InsomniaGERD (gastroesophageal reflux disease)VertigoEssential hypertensionNeuropathic painVitamin D deficiencyMild intermittent asthma 2024-04-25 07:01:00 Major depressive dis order, recurrent, mild; ROBERTO; InsomniaGERD (gastroesophageal reflux disease)VertigoEssential hypertensionNeuropathic painVitamin D deficiencyMild intermittent asthmaOther problems related to medical facilities and other health care Plan of Care Date of Service Plans 2023-10-05 10:55:08 BMI obtained (3008F) Televideo new patient, 30-44min 1 stable chronic or 2 minor; add modifier 95Advance care planning discussed and documented ? advance care plan or surrogate decision-maker was documented in the medical record. (1123F)Pain Assessment - Pain Documented (1125F)Advance care planning discussed and documented in the medical record ? beneficiary/patient did not wish to or was unable to provide an advance care plan or name a surrogate decision-maker. (1124F)Continue to see PCP. Follow-up with [facility] as needed for any acute or disease education needs that may arise 24/05.StableBuspar, Duloxetine, Zolpidem Denies SI/HITherapist: yesContinue taking medication, monitor for safety, coping mechanisms, and continue f/u care and monitoring with PCP and psychiatrist.StableFamotidineLifestyle interventions and continue with PCP and gastroenterology.StableMeclizineContinue f/u care with PCP.StableLisinopril, Amlodipine, HCTZMonitor BP routinely, low salt diet, exercise as tolerable, and continue f/u care with PCP and cardiology.StableGabapentinContinue f/u care and monitoring with PCP.StableVitamin D3 supplement Continue f/u care with PCP.StableFluticasone-SalmeterolDenies recent exacerbationsContinue taking medication, monitor for s/sx of respiratory distress and continue f/u care with PCP. 2024-04-25 07:01:00 Medication Review by prescribing provider or pharmacist documented (1160F)Medication List Documented (1159F)Functional Status Assessed (1170F)Advance Care Directive Advance care planning discussion documented in the medical record (1158F)BMI obtained (3008F)sbdbTelevideo 30-39min; chronic exacerbation, 2 stable chronic or 1 acute illness add modifier 95Advance care planning discussed and documented ? advance care plan or surrogate decision-maker was documented in the medical record. (1123F)Advance care planning discussed and documented in the medical record ? beneficiary/patient did not wish to or was unable to provide an advance care plan or name a surrogate decision-maker. (1124F)Pain Assessment - NO pain documented (1126F)Continue to see PCP. Follow-up with [facility] as needed for any acute or disease education needs that may arise.StableBuspar, Duloxetine, Zolpidem Denies SI/HITherapist: yesContinue taking medication, monitor for safety, coping mechanisms, and continue f/u care and monitoring with PCP and psychiatrist.StableFamotidineLifestyle interventions and continue with PCP and gastroenterology.StableMeclizineContinue f/u care with PCP.StableLisinopril, Amlodipine, HCTZMonitor BP routinely, low salt diet, exercise as tolerable, and continue f/u care with PCP and cardiology. Blood pressure is slightly elevated - checks at home. Reports compliance with medication. Increased BP with pain - patient rating pain 8/10StableGabapentinContinue f/u care and monitoring with PCP.StableVitamin D3 supplement Continue f/u care with PCP.StableFluticasone-SalmeterolDenies recent exacerbationsContinue taking medication, monitor for s/sx of respiratory distress and continue f/u care with PCP.PSYCH CONTINGENCY PLANMember to call for the following symptoms: Anxiety/ Suicidal thoughtsPlanned intervention: Contact mental health professional:/ Transfer member to [address] [place] [address]/ Hydroxyzine (Vistaril) 25mg PO q6h PRN anxiety/ Remind member of personal goal:/ Encourage use of home medication:/ Limit extra stimulation 2024-09-04 10:34:59 Unlisted special ser vice; to be used for medical record reviews and reporting CPTII codes (1111F, etc)SBP < 130 (3074F)DBP <80 (3078F) Goals Date Goal 2023-10-05 Remember to contact EMS if developing emergent symptoms. 2023-10-05 Contact us if develo ping urgent HTN s/sx, cardiac s/sx, worsening GI s/sx, worsening alteration of LE sensation, or SI/HI, or worsening depression. 2023-10-05 Contact us if develo ping urgent HTN s/sx, cardiac s/sx, worsening GI s/sx, worsening alteration of LE sensation, s/sx of respiratory distress, SI/HI, or worsening depression. 2023-10-05 Continue taking medi cations as prescribed and f/u care and monitoring with PCP every 3-6 months. 2024-04-25 Continue taking medi cations as directed and keep all follow up appointments with established PCP and Specialist.
== END 2024-11-27 13:54 | disposition home or self-care (01) ==
PROVIDERS: PCP Family Medicine; Visit Provider Surgery
DX: K42.9 Umbilical hernia without obstruction or gangrene (principal)
CPT/HCPCS: 99212

== ENCOUNTER 2024-12-01 10:28 | Outpatient (AMB) | payer OTHER, SELFPAY ==
[2024-12-01 10:33] VITALS: BP 138/78; PULSE 70; BMI 30.7
--- NOTE | 2024-12-01 10:33 | A.OFFVIS_ITS ---
Vital Signs 3 12/01/24 10:33 Height 5 ft 3 in Weight 173 lb 1.006 oz BMI 30.7 BP 138/78 Blood Pressure Location Rt brachial Position Sitting Pulse 70 Pulse Source Pulse Oximeter Intake Visit Reasons: Adrenal nodule Intake Note: Patient present today for Adrenal nodule office visit. Pe Teacher Required: Yes Pe Teacher Language: Scale Assembly Set Up Worker Services: Pe Teacher Present Pe Teacher Name: Elias [id number] Information Interpreted: non-clinical & clinical Accompanied by: Self / Same As Patient Allergies No Known Allergies Allergy (Verified 12/01/24 10:37) HPI Comments Details: 54-year-old female here today to establish care for 1 cm left adrenal incidentaloma. CT abdomen 08/07/2024 showed a 9 mm isodense nodule measuring 40 Hounsfield units. Non IV contrast study. I reviewed the images myself. She also had a CT abdomen from 2020 which also showed this nodule and nodule remained stable in size from then. Symptoms: HTN is well controlled on lisinopril 20 mg daily, HCTZ 25 mg daily, propranolol 80 mg daily and amlodipine 10 mg daily HTN diagnosed in 30s , no history of AL or stroke Father of stroke due to HTN emergency ( at age 71) Maternal cousin at agr 36 from stroke Maternal uncle age 34 from stroke Weight stable over past 2 years No history of DM, is prediabetic No fractures No hirsutism,severe acne , Does report headaches , chronic , says she has a history of migraines SILVER on CPAP , headaches improved with CPAP use denies any hx of proximal muscle weakness, ,no abdominal striae reports easy bruisability no skin infection or hyperpigmentation. -No truncal obesity,facial plethora or recent mood change. Has hx of depression. well controlled on meds - no episodic palpitaions, pallor,, diaphoresis . -Does report episodic abd pain , associated with bowel movement Interval history Labs from 11/06/2024 showed renin of 0.85, aldosterone of 4, DHEA-S of 74, cortisol baseline 11.1 acth 16, normal plasma metanephrine, normetanephrine levels. Dexamethasone suppression test showed a dexamethasone level of 260 with cortisol of less than 1. Physical exam General: sitting comfortably in no acute distress HEENT: normocephalic/atraumatic, Neck: supple, symmetrical, no thyromegaly , does have dorsocervical and supraclavicular fat pads Cardiac: normal heart sounds Pulm: normal breath sounds B/L, no added breath sounds Abd: not distended, no tenderness Extremities: no edema, no signs of myxedema Neuro: AAO x3, Speech: normal, no facial droop, moving all 4 extremities Laboratory Tests 07/08/24 09:02 Sodium 141 Potassium 3.8 Creatinine 0.72 Estimated GFR > 60 TSH 3.71 Laboratory Tests 11/06/24 11/10/24 07:50 08:10 Sodium 142 Potassium 4.0 Estimated GFR > 60 Random Glucose 75 Calcium 9.8 Renin 0.85 Aldosterone 4 DHEA Sulfate 74 Random Cortisol 11.1 < 1.0 ACTH 16 <5 L Plasma Free Metaneph 49 Plasma Free Normeta 81 Plas Total Metaneph [address] ABDOMEN WITHOUT CONTRAST 08/07/24 CLINICAL INFORMATION: Follow-up adrenal gland mass. COMPARISON: CT dated August 27, 2023. TECHNIQUE: Contiguous axial thin section helical images of the abdomen were performed without contrast. The data set was reformatted in the coronal and sagittal planes and reviewed on an independent workstation. This CT examination was performed using dose optimization techniques as appropriate, variously including the following: *Automated exposure control *Adjustment of mA and/or kV according to patient size (this includes techniques or standardized protocols for targeted exams where dose is matched to indication/reason for exam; i.e. extremities or head) *Use of iterative reconstruction technique DLP: 274 mGy-cm FINDINGS: Submitted for interpretation on October 06, 2024. Left adrenal gland: There is a 9 mm isodense nodule measuring 40 Hounsfield units in the non-IV contrast exam. Right adrenal gland: No nodular lesion. Inadequate evaluation of the intra-abdominal organs and vascular structures due to lack of IV contrast. No intestinal obstruction pattern. No ascites. No pneumoperitoneum. No pneumatosis intestinalis. Lymphadenopathy, mediastinum Liver measures 15 cm. No pericholecystic fluid collection or gallbladder wall thickening. No intrahepatic or extrahepatic biliary ductal dilatation. Spleen measures 7 cm. No peripancreatic fluid collection or main pancreatic ductal dilatation. No hydronephrosis or nephrolithiasis. No aneurysm in the abdominal aorta. Fat-containing umbilical hernia. No acute airspace disease or gross pulmonary nodules in the included lungs. No acute fracture or listhesis. No lytic or blastic lesions. CT/CT abdomen wo IV con IMPRESSION: 9 mm nodule, left adrenal gland. Incomplete evaluation. Lymphadenopathy, mesenteric. Fat-containing umbilical hernia. Fleischner guidelines were followed. Electronically signed by: Jonatan Marcelino MD 10/06/2024 10:[address] ABDOMEN AND PELVIS WITH CONTRAST 09/24/21 CLINICAL INFORMATION: Upper abdominal pain with nausea. COMPARISON: CT abdomen and pelvis noncontrast 06/02/2018, ultrasound abdomen 09/24/2021; 3-D digital breast tomosynthesis 10/30/2020. TECHNIQUE: Multidetector volumetric images were obtained from the superior aspect of the liver through the pubic symphysis following administration 85 mL of Omnipaque 350 intravenous contrast. Sagittal and coronal reformatted images were obtained on the technologist's workstation. Oral contrast: No This CT examination was performed using dose optimization techniques as appropriate, variously including the following: *Automated exposure control *Adjustment of mA and/or kV according to patient size (this includes techniques or standardized protocols for targeted exams where dose is matched to indication/reason for exam; i.e. extremities or head) *Use of iterative reconstruction technique DLP: 661 mGy-cm FINDINGS: LUNG BASES: The visualized lung bases are unremarkable. There is a known fibroadenoma left breast with biopsy clip marker, similar to prior mammography. LIVER, GALLBLADDER, AND BILIARY TREE: The liver is normal in size, shape, and attenuation. No focal hepatic lesion or biliary ductal dilatation is present. The gallbladder is unremarkable with no evidence of radiopaque gallstones, gallbladder wall thickening, or obvious pericholecystic inflammatory changes. PANCREAS: Unremarkable. SPLEEN: Unremarkable. ADRENAL GLANDS: Right adrenal normal. There is a stable solid nodule left adrenal under 1 cm (31 HU attenuation on prior noncontrast CT and 85 HU on current exam with contrast). No additional imaging follow-up recommended. KIDNEYS AND URETERS: The kidneys are normal in size and enhance symmetrically. There is no hydronephrosis, hydroureter, calculi, or perinephric stranding. There is incidental 0.8 cm cyst medial mid right kidney. No additional imaging follow-up required. BLADDER: Unremarkable. GASTROINTESTINAL TRACT: There is no bowel obstruction or focal inflammatory changes in the bowel or mesentery. The appendix is normal. There are fluid-filled loops of small bowel of normal caliber. No pneumatosis or free air. No ascites or fluid collection. ABDOMINAL WALL: Small fat-containing umbilical hernia under 3 cm. LYMPH NODES: No lymphadenopathy. VASCULAR: Unremarkable. PELVIC VISCERA: Unremarkable. OSSEOUS STRUCTURES: Unremarkable. CT/CT abdomen pelvis w con IMPRESSION: 1. Scattered fluid-filled small bowel of normal caliber. No wall thickening or obstruction. Normal appendix. 2. No cholelithiasis or ductal dilatation. No hydronephrosis or perinephric stranding. 3. No hydronephrosis or calculi. COUNTS INCLUDE 234 BEDS AT THE [facility] Medical History Adrenal incidentaloma Back pain Pre-diabetes GERD (gastroesophageal reflux disease) Fibromyalgia Bipolar disorder Insomnia Anxiety Depression Syncope Mild intermittent asthma NAFLD (nonalcoholic fatty liver disease) Vertigo Sleep apnea IBS (irritable bowel syndrome) Arthritis HTN (hypertension) Surgical History History of umbilical hernia repair (~11/14/24) Hx of colonoscopy History of esophagogastroduodenoscopy (EGD) History of hysterectomy Family History Father Diabetes Arthritis Hypertension Hypercholesteremia Cancer Mother Diabetes Hypertension Arthritis Cancer Son Asthma Son Asthma Heart problem Social History Are you a primary md do resident urgent care to a significant other at home: No Do you presently have visiting nurse or other home services: No Alcohol intake: never Patient Tobacco Use Status: Never used Tobacco Current occupational status: retired Physical Exam Vital Signs: Last Vital Signs Pulse 70 12/01/24 10:33 BP 138/78 12/01/24 10:33 BMI result Body Mass Index 30.7 Assessment & Plan Assessment & Plan (1) Adrenal incidentaloma: Code(s): E27.8 - Other specified disorders of adrenal gland Category: Medical Plan: 54-year-old female coming in today for follow up of left 1 cm adrenal incidentaloma. She had CT scan in August 2024 which showed 9 mm left-sided adrenal nodule with 40 Hounsfield unit, which is stable from size compared to CT scan in 2020 when this measured 9 mm, with precontrast 31 Hounsfield units and postcontrast 85 Hounsfield units. Given stability in size this is reassuring of most likely a benign nodule. However Hounsfield units are on the higher side hence I would plan to repeat a CT focused on adrenal gland with the adrenal gland washout in 08/2025. ? Labs from 11/06/2024 showed renin of 0.85, aldosterone of 4, DHEA-S of 74, cortisol baseline 11.1 acth 16, normal plasma metanephrine, normetanephrine levels. Dexamethasone suppression test showed a dexamethasone level of 260 with cortisol of less than 1. ? Plan: -plan to repeat CT with the adrenal washout in 08/2025 -follow up in August [address] scan. Plan see above Orders: Orders 2 CT adrenal wo/w IV con 08/06/25 E27.8 - Other specified disorders of adrenal gland Patient Instructions: Do Ct scan in August 2025 , someone will call you to schedule this Please do this a few weeks prior to follow up Real[employer] germain tomograf?a computarizada en 2024, alguien lo llamar? para programarla Tj esto unas semanas antes del seguimiento. Coding Level of Care Code Est Pt Level 3 (73320) Diagnoses Adrenal incidentaloma E27.8
--- OUTSIDE RECORDS SUMMARY | 2024-12-01 11:11 | XMS_ITS | Encounter Summary ---
Author Organization [employer] Address [address] [facility] 7t [place] [address] Care Team Providers Care Director Ambulatory Name Role Phone Alvina Mccartney MD Primary Care Provider [phone] Riky Tanner Unavailable Mariella Mcdonnell Unavailable [phone] Jina Vences MD Unavailable Shadia Morocho Unavailable Kendall Bates MD Unavailable [phone] Reason for Visit * Reason Comments Med Refill Encounter Details Date Type Department Care Team (Late st Contact Info) Description 06/05/2024 Refill [facility] [address] [place], [place] [phone] Alvina Mccartney MD [address] [place], [place] [phone] Pain Social History Tobacco Use Types Packs/Day Years Used Date Smoking Tobacco: Never Passive Smoke Exposure: Never Smokeless Tobacco: Never Alcohol Use Standard Drinks/Week Comments Never 0 (1 standard drink = 0.6 oz pur e alcohol) Depression Answer Date Recorded Patient Health Questionnaire-9 Score 8 07/26/2023 Housing Stability Answer Date Recorded What is your housing situation today? I have yazmin saldaña 08/26/[address] you li ve. Do you have problems with any of the following? None of the above 08/26/2023 Food Insecurity Answer Date Recorded Within the past 12 months, y ou worried that your food would run out before you got money to buy more: Never True 08/26/2023 Within the past 12 months,th e food you bought just didn't last and you didn't have enough money to get more: Never True Transportation Answer Date Recorded In the past 12 months, has l ack of transportation kept you from medical appts, meetings, work or from getting things needed for daily living? No 08/26/2023 Utilities Answer Date Recorded In the past 12 months, has t he electric, gas, oil or water company threatened to shut off services in your home? No 08/26/2023 Depression Answer Date Recorded Patient Health Questionnaire-2 Score 4 07/26/2023 Comments Unknown Sex and Gender Information Value Date Recorded Sex Assigned at Female 08/31/2022 10:14 AM EDT Legal Sex Female 10:14 AM EDT Gender Identity Female 08/31/2022 10:14 AM EDT Sexual Orientation Straight 08/31/2022 10 :14 AM EDT documented as of this encounter Plan of Treatment Upcoming Encounters Date Type Department Care Team (Late st Contact Info) Description 01/01/2025 9:45 AM EST Office Visit [facility] MED[facility]INE [address] [place] [phone] Alvina Mccartney MD [address] [place] [phone] documented as of this encounter Visit Diagnoses Diagnosis Pain Generalized pain Dietary counseling Dietary surveillance and counseling Exercise counseling Overweight Major depression single episode, in partial remission (CMS/HCC) Major depressive disorder, single episode, in partial or unspecified remission Adrenal nodule (CMS/HCC) Benign neoplasm of adrenal gland documented in this encounter Additional Health Concerns Assessment Noted Time PHQ-9 Depression Total Score: 8 07/26/20 23 10:55 AM EDT documented as of this encounter Care Teams Director Ambulatory Relationship Specialty Start Date End Date Alvina Mccartney MD [address] [place] [phone] PCP - General Family Medicine 11/01/18 Riky Tanner [address] [place] [address] 3rd [place] [address] Cardiology 10/03/24 Mariella Mcdonnell [address] [facility] [address] [place] [address] 10/11/24 Jina Vences MD [address] [place] [address] Endocrinology 11/05/24 Shadia Morocho PA [address] [place] [address] Orthopaedic Surgery 11/07/24 Kendall Bates MD [address] 3rd [place] [address] General Surgery 11/28/24 documented as of this encounter
--- OUTSIDE RECORDS SUMMARY | 2024-12-01 11:11 | XMS_ITS | Encounter Summary ---
Author Organization [employer] Address [address] [facility] 7t [place] [address] Care Team Providers Care Physician Name Role Phone Alvina Mccartney MD Primary Care Provider Riky Tanner Unavailable Mariella Mcdonnell Unavailable [phone] Jina Vences MD Unavailable Shadia Morocho Unavailable Kendall Bates MD Unavailable [phone] Encounter Details Date Type Department Care Team (Late st Contact Info) Description 04/14/2024 Abstract [facility] MEDICINE [address] [place], [place] [phone] Hayley Briscoe [place] Social History Tobacco Use Types Packs/Day Years Used Date Smoking Tobacco: Never Passive Smoke Exposure: Never Smokeless Tobacco: Never Alcohol Use Standard Drinks/Week Comments Never 0 (1 standard drink = 0.6 oz pur e alcohol) Depression Answer Date Recorded Patient Health Questionnaire-9 Score 8 07/26/2023 Housing Stability Answer Date Recorded What is your housing situation today? I have yazmintoya saldaña 08/26/[address] you [...] Description 01/01/2025 9:45 AM EST Office Visit [facility] [address] [place] [address] Alvina Mccartney MD [address] [place] [phone] documented as of this encounter Procedures Procedure Name Priority Date/Time Associated Diagnosis Comments DIABETES EYE EXAM Routine 04/04/2024 documented in this encounter Results * Diabetes Eye Exam (04/04/2024) [facility] Signature Eye Exam Normal Normal Comment:repeat 5 year 04/04/2024 Historical Provider HEALTH MAINTENANCE Final Result documented in this encounter Visit Diagnoses Not on filedocumented in this encounter Additional Health Concerns Assessment Noted Time PHQ-9 Depression Total Score: 8 07/26/20 23 10:55 AM EDT documented as of this encounter Care Teams Physician Relationship Specialty Start Date End Date Alvina Mccartney MD [address] [place] [phone] PCP - General Family Medicine 11/01/18 Riky Tanner [address]rd [place] [address] Cardiology 10/03/24 Mariella Mcdonnell [address] [phone] 10/11/24 Jina Vences MD [address] [place] [address] Endocrinology 11/05/24 Shadia Morocho PA [address] [place] [address] Orthopaedic Surgery 11/07/24 Kendall Bates MD [address] 3rd [place] [address] General Surgery 11/28/24 documented as of this encounter
--- OUTSIDE RECORDS SUMMARY | 2024-12-01 11:12 | XMS_ITS | Encounter Summary ---
Author Organization [employer] Address [address] [facility] 7t [place] [address] Care Team Providers Care Over The Road Driver Name Role Phone Alvina Mccartney MD Primary Care Provider [phone] Riky Tanner Unavailable Mariella Mcdonnell Unavailable [phone] Jina Vences MD Unavailable Shadia Morocho Unavailable Encounter Details Date Type Department Care Team (Late st Contact Info) Description 11/10/2024 Orders Only GENERIC EXTERNAL DATA DEPARTMENT Provider, Generic External Data Social History Tobacco Use Types Packs/Day Years [...] Description 01/01/2025 9:45 AM EST Office Visit [facility] [address] [place] [address] Alvina Mccartney MD [address] [place] [address] documented as of this encounter Procedures Procedure Name Priority Date/Time Associated Diagnosis Comments DEXAMETHASONE Routine 11/10/2024 8:10 AM EST CORTISOL RANDOM Routine 11/10/2024 8:10 AM EST ACTH, PLASMA Routine 11/10/2024 8:10 AM EST documented in this encounter Results * Dexamethasone (11/10/2024 8:10 AM EST) [facility] Signature Dexamethasone 260 ng/dL [facility] Comment:Reference Ranges for Dexamethasone:Baseline: Less than 20 ng/dL1 mg dexamethasone overnight: 180-550 ng/dL (8:00-10:00 AM)This test was developed and its analytical performancecharacteristics have been determined by [employer].It has not been cleared or approved by FDA. This assay hasbeen validated pursuant to the CLIA regulations and is usedfor clinical purposes.THIS TEST WAS PERFORMED AT:[employer]/SARAV[address] [id number] [place] [id number] COTTON MD,PHD,JENNIFER 11/10/2024 8:10 AM EST 11/10/2024 8:10 AM EST Generic External Data Provider LAB BLOOD ORDERAB LES Final Result Performing Organization Address [facility] Co de Phone Number [facility] [address] [place] [phone] * (ABNORMAL) ACTH, Plasma (11/10/2024 8:10 AM EST) ACTH, Plasma <5(A) 6 - 50 pg/mL [facility] Comment:Reference range appl ies only to specimens collectedbetween 7am-10am.THIS TEST WAS PERFORMED AT:[employer]/[address] [id number] [place] [address]BLSEUFZFERMÍN CHEUNG MD,PHD 11/10/2024 8:10 AM EST 11/10/2024 8:10 AM EST Generic External Data Provider LAB BLOOD ORDERAB LES Final Result Performing Organization Address [facility] de Phone Number [facility] [address] [place] [phone] * Cortisol Random (11/10/2024 8:10 AM EST) Cortisol Random <1.0 ug/dL [facility] Comment:Reference Range*: Be fore 10 am 6.2-19.4 ug/dL After 5 pm 2.3-11.9 ug/dL*Please interpret above results accordingly.This test was performed using the [employer] chemiluminescentmethod. Values obtained from different assay methods cannotbe used interchangeably.Patients receiving fludrocortisone, prednisolone orprednisone may show artificially elevated cortisol valuesdue to cross-reactivity. 11/10/2024 8:10 AM EST 11/10/2024 8:10 AM EST Generic External Data Provider LAB BLOOD ORDERAB LES Final Result [facility] [address] [place] [address] [phone] documented in this encounter Visit Diagnoses Not on filedocumented in this encounter Additional Health Concerns Assessment Noted Time PHQ-9 Depression Total Score: 8 07/26/20 23 10:55 AM EDT documented as of this encounter Care Teams Over The Road Driver Relationship Specialty Start Date End Date Alvina Mccartney MD [address] [place] [address] PCP - General Family Medicine 11/01/18 Riky Tanner [address]rd [place] [address] Cardiology 10/03/24 Mariella Mcdonnell [address] [phone] 10/11/24 Jina Vences MD [address] [place] [address] Endocrinology 11/05/24 Shadia Morocho PA [address] [place] [address] Orthopaedic Surgery 11/07/24 documented as of this encounter
--- OUTSIDE RECORDS SUMMARY | 2024-12-01 11:12 | XMS_ITS | Encounter Summary ---
Author Organization [employer] Address [address] [facility] 7t [place] [address] Care Team Providers Care Commercial Correspondent Name Role Phone Alvina Mccartney MD Primary Care Provider [phone]- [phone] Riky Tanner Unavailable Mariella Mcdonnell Unavailable [phone] Jina Vences MD Unavailable Shadia Morocho Unavailable Encounter Details Date Type Department Care Team (Late st Contact Info) Description 11/09/2024 Orders Only [facility] External Provider, [facility] Adrenal nodule (CMS/HCC) (Primary Dx) Social History Tobacco Use Types Packs/Day Years [...] 01/01/2025 9:45 AM EST Office Visit [facility] MEDICINE [address] [place] [phone] Alvina Mccartney MD [address] [place], [place] [phone] documented as of this encounter Procedures Procedure Name Priority Date/Time Associated Diagnosis Comments CT ABDOMEN PELVIS WO CONTRAST Routine 11/09/2024 4:44 PM EST documented in this encounter Results * CT Abdomen Pelvis w/o Contrast (11/09/2024 4:44 PM EST) Anatomical Region Laterality Modality Body, Pelvis, Abdomen Computed T omography 11/09/2024 4:44 PM EST Narrative 11/13/2024 1:20 PM EST ? [facility] ?[address] ?[place] [address] ? CT Scan Report ? Signed ? Patient: Paulo,Lety ?MR#: [id number] ?? [id number] ? : 1970 ?Acct:[id number] ? Age/Sex: 54 / F ?ADM Date: 01/09/25 ? Loc: HO.CT ? Attending Dr: Kendall Bates MD ? Ordering Physician: Kendall Bates MD ?? Date of Service: 11/09/24 ?? Procedure(s): CT abdomen pelvis wo IV con ?? Accession Number(s): [id number] ? cc: Alvina Mccartney MD; Kendall Bates MD ? Report Number: ?? [id number]: Total DLP = ??506.00 mGy-cm ?? EXAMINATION: ??CT ABDOMEN PELVIS WITHOUT IV CONTRAST ? HISTORY: K42.9 - Umbilical hernia without obstruction or gangrene ? COMPARISON: Comparison is made with the prior examination dated ?? 06/07/2024. ? TECHNIQUE: CT scan of the abdomen and pelvis was performed without ?? contrast using standard departmental protocol. ?? Coronal and sagittal ?? reformatted images were generated and reviewed. ??Oral contrast material ?? was not administered at the request of the referring physician. ? This CT exam was performed with one or more of the following dose ?? reduction techniques: automated exposure control, adjustment of the mA ?? and/or kV according to patient size, use of iterative reconstruction ?? technique. ? DLP: 506 mGy-cm ? FINDINGS: ? LOWER CHEST: The visualized lung bases are clear. There is no pleural ?? effusion. ? CARDIOVASCULATURE: The heart is normal in size. ??There is no ?? pericardial effusion. ? LIVER: ??The liver is normal in size and contour. ??The liver has an ?? unremarkable unenhanced appearance. ? GALLBLADDER / BILE DUCTS: ??The gallbladder is contracted, without ?? evidence of calcified stones. There is no intra or extrahepatic biliary ?? ductal dilatation. ? SPLEEN: The spleen is normal in size and has an unremarkable unenhanced ?? appearance. ? PANCREAS: The pancreas has an unremarkable unenhanced appearance. ? ADRENAL GLANDS: The right adrenal gland is unremarkable. Again seen is ?? a 10 mm left adrenal nodule. ? KIDNEYS/RETROPERITONEUM: No renal calculi are identified. There is no ?? hydronephrosis. ? LYMPH NODES: ??No retroperitoneal lymphadenopathy is identified in the ?? abdomen or pelvis. ? VASCULATURE: ??The abdominal aorta is normal in caliber. ? MESENTERY/PERITONEUM: No free fluid. No masses. ??There is no free ?? intraperitoneal gas. ? STOMACH: ??There is a large amount of debris in the stomach. ? SMALL BOWEL: ?? The small bowel is normal in caliber. ? COLON: ??There is a moderate amount of stool throughout the colon. ? APPENDIX: ??Normal. ? URINARY BLADDER/PELVIC ORGANS: The urinary bladder is collapsed, ?? limiting evaluation. ??The uterus has an unremarkable unenhanced ?? appearance. ? BONES / SOFT TISSUES: ??Again seen is a small fat-containing umbilical ?? hernia. The neck of the hernia measures approximately 8 mm in size. No ?? suspicious bony or soft tissue abnormalities. ? CT/CT abdomen pelvis wo IV con ?? IMPRESSION: ?? 1. Stable small fat-containing umbilical hernia. ? 2. Stable 10 mm left adrenal nodule which likely represents an adenoma. ? Electronically signed by: ??Elder Esparza MD ??11/13/2024 01:17 PM EST ?? RP ? Dictated By: ?Elder Esparza MD ? Signed By: ?<Electronically signed by Elder Esparza MD in OV> ?11/13/24 1317 ? DD/ 1644 ? TD/TT: 11/09/24 1651 ? Underwriting Specialist: ? Procedure Note Lesa, Image - 11/13/[address] [address] [address] Scan Report Signed Patient: Leidy BatesnMR#: [id number] : 1970Acct:[id number] Age/Sex: 54 / FADM Date: 11/09/24 Loc: HO.CT Attending Dr: Kendall Bates MD Ordering Physician: Kendall Bates MD Date of Service: 11/09/24 Procedure(s): CT abdomen pelvis wo IV con Accession Number(s): [id number] cc: Alvina Mccartney MD; Kendall Bates MD Report Number: [id number]: Total DLP = 506.00 mGy-cm EXAMINATION: CT ABDOMEN PELVIS WITHOUT IV CONTRAST HISTORY: K42.9 - Umbilical hernia without obstruction or gangrene COMPARISON: Comparison is made with the prior examination dated 06/07/2024. TECHNIQUE: CT scan of the abdomen and pelvis was performed without contrast using standard departmental protocol. Coronal and sagittal reformatted images were generated and reviewed. Oral contrast material was not administered at the request of the referring physician. This CT exam was performed with one or more of the following dose reduction techniques: automated exposure control, adjustment of the mA and/or kV according to patient size, use of iterative reconstruction technique. DLP: 506 mGy-cm FINDINGS: LOWER CHEST: The visualized lung bases are clear. There is no pleural effusion. CARDIOVASCULATURE: The heart is normal in size. There is no pericardial effusion. LIVER: The liver is normal in size and contour. The liver has an unremarkable unenhanced appearance. GALLBLADDER / BILE DUCTS: The gallbladder is contracted, without evidence of calcified stones. There is no intra or extrahepatic biliary ductal dilatation. SPLEEN: The spleen is normal in size and has an unremarkable unenhanced appearance. PANCREAS: The pancreas has an unremarkable unenhanced appearance. ADRENAL GLANDS: The right adrenal gland is unremarkable. Again seen is a 10 mm left adrenal nodule. KIDNEYS/RETROPERITONEUM: No renal calculi are identified. There is no hydronephrosis. LYMPH NODES: No retroperitoneal lymphadenopathy is identified in the abdomen or pelvis. VASCULATURE: The abdominal aorta is normal in caliber. MESENTERY/PERITONEUM: No free fluid. No masses. There is no free intraperitoneal gas. STOMACH: There is a large amount of debris in the stomach. SMALL BOWEL: The small bowel is normal in caliber. COLON: There is a moderate amount of stool throughout the colon. APPENDIX: Normal. URINARY BLADDER/PELVIC ORGANS: The urinary bladder is collapsed, limiting evaluation. The uterus has an unremarkable unenhanced appearance. BONES / SOFT TISSUES: Again seen is a small fat-containing umbilical hernia. The neck of the hernia measures approximately 8 mm in size. No suspicious bony or soft tissue abnormalities. CT/CT abdomen pelvis wo IV con IMPRESSION: 1. Stable small fat-containing umbilical hernia. 2. Stable 10 mm left adrenal nodule which likely represents an adenoma. Electronically signed by: Elder Esparza MD 11/13/2024 01:17 PM EST RP Dictated By: Elder Esparza MD Signed By: <Electronically signed by Elder Esparza MD in OV> 11/13/24 1317 DD/ 1644 TD/TT: 11/09/24 1651 Underwriting Specialist: [facility] External Provider IMG CT PROCEDURES Final Result documented in this encounter Visit Diagnoses Diagnosis Adrenal nodule (CMS/HCC)- Primary Benign neoplasm of adrenal gland Dietary counseling Dietary surveillance and counseling Exercise counseling Overweight Major depression single episode, in partial remission (CMS/HCC) Major depressive disorder, single episode, in partial or unspecified remission Adrenal nodule (CMS/HCC) Benign neoplasm of adrenal gland documented in this encounter Additional Health Concerns Assessment Noted Time PHQ-9 Depression Total Score: 8 07/26/20 23 10:55 AM EDT documented as of this encounter Care Teams Commercial Correspondent Relationship Specialty Start Date End Date Alvina Mccartney MD [address] [place] [address] PCP - General Family Medicine 11/01/18 Riky Tanner 11 [facility] 3rd [place] [address] Cardiology 10/03/24 Mariella Mcdonnell [address] [phone] 10/11/24 Jina Vences MD [address] [place] [address] Endocrinology 11/05/24 Shadia Morocho PA 10 [facility] [address] [place] [address] Orthopaedic Surgery 11/07/24 documented as of this encounter
--- OUTSIDE RECORDS SUMMARY | 2024-12-01 11:12 | XMS_ITS | Encounter Summary ---
Author Organization [employer] Address 75 [facility] 7t [place] [address] Care Team Providers Care Ladle Builder Name Role Phone Alvina Mccartney MD Primary Care Provider [phone]- [phone] Riky Tanner Unavailable Mariella Mcdonnell Unavailable [phone] Jina Vences MD Unavailable Encounter Details Date Type Department Care Team (Late st Contact Info) Description 11/06/2024 Orders Only GENERIC EXTERNAL DATA DEPARTMENT Provider, [...] Description 01/01/2025 9:45 AM EST Office Visit [facility] MEDICINE [address] [place], [place] [phone] Alvina Mccartney MD [address] [place], [place] [phone] documented as of this encounter Procedures Procedure Name Priority Date/Time Associated Diagnosis Comments METANEPHRINES, FRACT, FREE, LC/MS/MS, PLASMA Routine 11/06/2024 7:50 AM EST CORTISOL RANDOM Routine 11/06/2024 7:50 AM EST ALDOSTERONE, LC/MS/MS Routine 11/06/2024 7:50 AM EST PLASMA RENIN ACTIVITY, LC/MS/MS Routine 11/06/2024 7:50 AM EST DHEA SULFATE Routine 11/06/2024 7:50 AM EST ACTH, PLASMA Routine 11/06/2024 7:50 AM EST BASIC METABOLIC PANEL Routine 11/06/2024 7:50 AM EST documented in this encounter Results * Plasma Renin Activity, LC/MS/MS (11/06/2024 7:50 AM EST) Plasma Renin Activity, LC/MS/MS 0.85 0.25 - 5.82 ng/mL/h [facility] Comment:This test was develo ped and its analytical performancecharacteristics have been determined by [employer] [place], [place]. It hasnot been cleared or approved by the U.S. Food and DrugAdministration. This assay has been validated pursuantto the CLIA regulations and is used for clinicalpurposes.THIS TEST WAS PERFORMED AT:[employer] [id number] [place] [address]DJJWUQRFERMÍN CHEUNG MD,PHD 11/06/2024 7:50 AM EST 11/06/2024 7:56 AM EST us Generic External Data Provider LAB BLOOD ORDERAB LES Final Result [facility] [address] [place] [phone] * Metanephrines, Fractionated, Free, LC/MS/MS, Plasma (11/06/2024 7:50 AM EST) Metanephrine, Free 49 <=57 pg/mL [facility] Comment:This test was develo ped and its analytical performancecharacteristics have been determined by [employer] [place]. It hasnot been cleared or approved by the U.S. Food and DrugAdministration. This assay has been validated pursuantto the CLIA regulations and is used for clinicalpurposes. Normetanephrine, Free 81 <=148 pg/mL [facility] Comment:This test was develo ped and its analytical performancecharacteristics have been determined by [employer] [place]. It hasnot been cleared or approved by the U.S. Food and DrugAdministration. This assay has been validated pursuantto the CLIA regulations and is used for clinicalpurposes. Total, Free (MN+NMN) 130 <=205 pg/mL [facility] Comment: For additional information, please refer tohttp://education.TDX.[employer]/faq/MetFractFree(This link is being provided for informational/educatioinformational/educational purposes only.)Elevations >4-fold upper reference range: stronglysuggestive of a pheochromocytoma(1).Elevations >1- 4-fold upper reference range:significant but not diagnostic, may be due tomedications or stress. Suggest running 24 hr urinefractionated metanephrines and/or serum Chromagranin Afor confirmation.Reference:(1)Janell Tadeo et al, Plasma Chromogranin Aor Urine Fractionated Metanephrines Follow-Up TestingImproves the Diagnostic Accuracy of Plasma FractionatedMetanephrines for Pheochromocytoma. The Journal ofClinical Endocrinology # Metabolism 93(1), 91-95, 2008.This test was developed and its analytical performancecharacteristics have been determined by [employer] [place], [place]. It hasnot been cleared or approved by the U.S. Food and DrugAdministration. This assay has been validated pursuantto the CLIA regulations and is used for clinicalpurposes.THIS TEST WAS PERFORMED AT:[employer] [id number] [place], [place] ??[address]VZIZSJI W. MASON,MD,PHD 11/06/2024 7:50 AM EST 11/06/2024 7:56 AM EST us Generic External Data Provider LAB BLOOD ORDERAB LES Final Result [facility] [address] [place] [phone] * Aldosterone, LC/MS/MS (11/06/2024 7:50 AM EST) Aldosterone, LC/MS/MS 4 see note ng/dL [facility] Comment:Unable to flag abnor mal result(s), please refer to reference range(s) below:Adult Reference Ranges for Aldosterone, LC/MS/MS: Upright 8:00 - 10:00 am < or = 28 ng/dL Upright 4:00 - 6:00 pm < or = 21 ng/dL Supine 8:00 - 10:00 am 3 - 16 ng/dLThis test was developed and its analytical performancecharacteristics have been determined by [employer] [place]. It hasnot been cleared or approved by the U.S. Food and DrugAdministration. This assay has been validated pursuantto the CLIA regulations and is used for clinicalpurposes.THIS TEST WAS PERFORMED AT:[employer] [id number] [place] [id number] CHEUNG MD,PHD 11/06/2024 7:50 AM EST 11/06/2024 7:56 AM EST [facility] External Data Provider LAB BLOOD ORDERAB LES Final Result Performing Organization Address [facility] Co de [facility] Number [facility] [address] [place] [phone] * ACTH, Plasma (11/06/2024 7:50 AM EST) ACTH, Plasma 16 6 - 50 pg/mL [facility] Comment:Reference range appl ies only to specimens collectedbetween 7am-10am.THIS TEST WAS PERFORMED AT:[employer] [id number] [place] [address]LXVWTHUFERMÍN CHEUNG MD,PHD 11/06/2024 7:50 AM EST 11/06/2024 7:56 AM EST Generic External Data Provider LAB BLOOD ORDERAB LES Final Result Performing Organization Address [facility] Co de Phone Number [facility] [address] [place] [phone] * DHEA Sulfate (11/06/2024 7:50 AM EST) DHEA Sulfate 74 5 - 167 mcg/dL [facility] Comment:THIS TEST WAS PERFOR MED AT:[employer] [place] [id number] CALIX MD 11/06/2024 7:50 AM EST 11/06/2024 7:56 AM EST Generic External Data Provider LAB BLOOD ORDERAB LES Final Result Performing Organization Address [facility] Co de Phone Number [facility] [address] [place] [phone] * Cortisol Random (11/06/2024 7:50 AM EST) Pathologist [facility] Cortisol Random 11.1 ug/dL [facility] Comment:Reference Range*: Be fore 10 am 6.2-19.4 ug/dL After 5 pm 2.3-11.9 ug/dL*Please interpret above results accordingly.This test was performed using the [employer] chemiluminescentmethod. Values obtained from different assay methods cannotbe used interchangeably.Patients receiving fludrocortisone, prednisolone orprednisone may show artificially elevated cortisol valuesdue to cross-reactivity. 11/06/2024 7:50 AM EST 11/06/2024 7:56 AM EST Generic External Data Provider LAB BLOOD ORDERAB LES Final Result Performing Organization Address [facility] Co de Phone Number [facility] [address] [place] [phone] * (ABNORMAL) Basic Metabolic Panel (11/06/2024 7:50 AM EST) Pathologist [facility] Sodium 142 135 - 145 mmol/L [facility] Potassium 4.0 3.3 - 5.1 mmol/L [facility] Chloride 109(H) 96 - 108 mmol/L [facility] Carbon Dioxide 25 22 - 29 mmol/L [facility] Anion Gap 12 12 - 20 [facility] Urea Nitrogen (BUN) 23(H) 9 - 16 mg/dL [facility] Creatinine, Serum 0.75 0.5 - 1.4 mg/dL [facility] Estimated Glomerular Filt Rate >60 [facility] Comment:Chronic Kidney Disea se: Estimated GFR < 60 mL/min/1.78r4Lvomft Kidney Disease: Estimated GFR < 15 mL/min/1.73m2 Glucose 75 60 - 115 mg/dL [facility] Calcium 9.8 8.4 - 10.2 mg/dL [facility] 11/06/2024 7:50 AM EST 11/06/2024 7:56 AM EST us Generic External Data Provider LAB BLOOD ORDERAB LES Final Result [facility] [address] [place] [phone] documented in this encounter Visit Diagnoses Not on filedocumented in this encounter Additional Health Concerns Assessment Noted Time PHQ-9 Depression Total Score: 8 07/26/20 23 10:55 AM EDT documented as of this encounter Care Teams Ladle Builder Relationship Specialty Start Date End Date Alvina Mccartney MD [address] [place] [address] PCP - General Family Medicine 11/01/18 Riky Tanner [address] [place] [address] 3rd [place] [address] Cardiology 10/03/24 Mariella Mcdonnell [address] [phone] 10/11/24 Jina Vences MD [address] [place] [address] Endocrinology 11/05/24 documented as of this encounter
--- OUTSIDE RECORDS SUMMARY | 2024-12-01 11:12 | XMS_ITS | Encounter Summary ---
Author Organization [employer] Address 75 [facility] 7t [place] [address] Care Team Providers Care Exhibits Coordinator Name Role Phone Alvina Mccartney MD Primary Care Provider [phone] Riky Tanner Unavailable Mariella Mcdonnell Unavailable [phone] Reason for Visit * Reason Comments Med Refill Encounter Details Date Type Department Care Team (Late st Contact Info) Description 11/02/2024 Refill [facility] MEDICINE [address] [place], [place] [phone] Alvina Mccartney MD [address] [place], [place] [phone] Pain Social History Tobacco Use Types Packs/Day [...] Description 01/01/2025 9:45 AM EST Office Visit [facility] MEDICINE [address] [place] [phone] Alvina Mccartney MD [address] [place] [phone] documented as of this encounter Visit Diagnoses [...] documented as of this encounter Care Teams Exhibits Coordinator Relationship Specialty Start Date End Date Alvina Mccartney MD [address] [place] [address] PCP - General Family Medicine 11/01/18 Riky Tanner [address] [place] [address] 3rd [place] [address] Cardiology 10/03/24 Mariella Mcdonnell [address] [place] [phone] 10/11/24 documented as of this encounter
--- OUTSIDE RECORDS SUMMARY | 2024-12-01 11:12 | XMS_ITS | Encounter Summary ---
Author Organization [employer] Address 75 [facility] 7t [place] [address] Care Team Providers Care Retail Project Merchandiser Name Role Phone Alvina Mccartney MD Primary Care Provider [phone] Riky Tanner Unavailable Mariella Mcdonnell Unavailable [phone] Jina Vences MD Unavailable Shadia Morocho Unavailable Reason for Visit * Reason Onset Date Comments December recall 11/09/2024 Encounter Details Date Type Department Care Team (Late st Contact Info) Description 11/09/2024 Telephone [facility] MEDICINE [address] [place], [place] [phone] Berto Schroeder [place] December recall Social History Tobacco Use Types Packs/Day Years [...] AM EDT documented as of this encounter Miscellaneous Notes * Telephone Encounter - Berto Schroeder [place] - 11/09/2024 1:38 PM EST T/C to pt to schedule a recall f/u htn. PT agreed to come in on 01/01/25 at 9:45am. documented in this encounter Plan of Treatment Upcoming Encounters Date Type Department Care Team (Late st Contact Info) Description 01/01/2025 9:45 AM EST Office Visit [facility] MEDICINE [address] [place] [phone] Alvina Mccartney MD [address] [place] [phone] documented as of this encounter Visit Diagnoses Not on filedocumented in this encounter Additional Health Concerns Assessment Noted Time PHQ-9 Depression Total Score: 8 07/26/20 23 10:55 AM EDT documented as of this encounter Care Teams Retail Project Merchandiser Relationship Specialty Start Date End Date Alvina Mccartney MD [address] [place] [address] PCP - General Family Medicine 11/01/18 Riky Tanner [address] 3rd [place] [address] Cardiology 10/03/24 Mariella Mcdonnell [address] [phone] 10/11/24 Jina Vences MD [address] [place] [address] Endocrinology 11/05/24 Shadia Morocho PA [address] [place] [address] Orthopaedic Surgery 11/07/24 documented as of this encounter
--- OUTSIDE RECORDS SUMMARY | 2024-12-01 11:12 | XMS_ITS | Encounter Summary ---
Author Organization [employer] Address 75 [facility] 7t [place] [address] Care Team Providers Care Band Builder Name Role Phone Alvnia Mccartney MD Primary Care Provider [phone]- [phone] Riky Tanner Unavailable Mariella Mcdonnell Unavailable [phone] Jina Vences MD Unavailable Shadia Morocho Unavailable Kendall Bates MD Unavailable Encounter Details Date Type Department Care Team (Late st Contact Info) Description 10/16/2022 Orders Only [facility] MEDICINE [address] [place] [phone] Anel Espinoza, RN Social History Tobacco Use Types Packs/Day Years Used Date Smoking Tobacco: Never Assessed Comments Unknown Sex and Gender Information Value [...] Description 01/01/2025 9:45 AM EST Office Visit [facility] MEDICINE [address] [place] [phone] Alvina Mccartney MD [address] [place], [place] [phone] documented as of this encounter Visit Diagnoses Not on filedocumented in this encounter Care Teams Band Builder Relationship Specialty Start Date End Date Alvina Mccartney MD [address] [place] [address] PCP - General Family Medicine 11/01/18 Riky Tanner [facility] [address] [place] [address] Cardiology 10/03/24 Mariella Mcdonnell [address] [phone] 10/11/24 Jina Vences MD [address] [place] [address] Endocrinology 11/05/24 Shadia Morocho PA [address] [place] [address] Orthopaedic Surgery 11/07/24 Kendall Bates MD [address] [address] General Surgery 11/28/24 documented as of this encounter
--- OUTSIDE RECORDS SUMMARY | 2024-12-01 11:12 | XMS_ITS | Clinical Summary ---
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 Phone Alvina Mccartney MD Primary Care Provider [phone] Riky Tanner Unavailable Mariella Mcdonnell Unavailable Jina Vences MD Unavailable Shadia Morocho Unavailable Kendall Bates MD Unavailable [phone] Allergies No known active allergies Medications amLODIPine (Norvasc) 10 MG tabletIndicatio ns:Essential hypertension TAKE 1 TABLET BY MOUTH EVERY MORNING 30 tablet 06/28/20 24 Active D3-1000 25 MCG (1000 UT) capsuleIndicati ons:Vitamin D deficiency TAKE 1 CAPSULE BY MOUTH EVERY MORNING 30 capsule 06/28/20 24 Active hydroCHLOROthia zide (HYDRODiuril) 25 MG tabletIndicatio ns:Essential hypertension TAKE 1 TABLET BY MOUTH EVERY MORNING 30 tablet 06/28/20 24 Active cetirizine (ZyrTEC) 10 MG tabletIndicatio ns:Allergic rhinitis, unspecified seasonality, unspecified trigger TAKE 1 TABLET BY MOUTH EVERY DAY 30 tablet 06/28/20 24 Active Ventolin HFA 108 (90 Base) MCG/ACT inhalerIndicati ons:Mild intermittent asthma without complication INHALE 1-2 PUFFS BY MOUTH EVERY 4 TO 6 HOURS NEEDED FOR COUGH OR SHORTNESS OF BREATH 04/25/20 24 Active mesalamine ER (Apriso) 0.375 g 24 hr capsuleIndicati ons:Irritable bowel syndrome, unspecified type TAKE 4 CAPSULES BY MOUTH EVERY MORNING 05/26/20 24 Active busPIRone (Buspar) 15 MG tabletIndicatio ns:Major depression single episode, in partial remission (CMS/HCC) Take 15 mg by mouth 2 times daily. Take 2 tab po bid per Dr. Rose Hester Active DULoxetine (Cymbalta) [address] capsuleIndicati ons:Major depression single episode, in partial remission (CMS/HCC) Take 30 mg by mouth Once per day. Do not crush or chew. Dr. Rose Hester Active zolpidem (Ambien) 10 MG tabletIndicatio ns:Major depression single episode, in partial remission (CMS/HCC) Take by mouth if needed at bedtime for sleep. Dr. Rose Hester Active lisinopril (Prinivil) 20 MG tabletIndicatio ns:Essential hypertension Take 1 tablet (20 mg) by mouth Once per day. 30 tablet 07/05/20 Active lidocaine (LMX 4) 4 % creamIndication s:Neck pain Apply topically if needed in the morning, at noon, in the evening, and at bedtime for mild pain. 15 g 2 07/05/20 24 025 Active Fluticasone-Thor meterol 500-50 MCG/ACT aerosol powderIndicatio ns:Mild intermittent asthma without complication INHALE 1 PUFF BY MOUTH TWICE DAILY RINSE MOUTH AFTER USING. 30 each 07/31/20 24 Active gabapentin (Neurontin) 300 MG capsuleIndicati ons:Pain TAKE 1 CAPSULE BY MOUTH THREE TIMES DAILY IN THE MORNING, EVENING, AND BEDTIME 90 capsule 11/02/19 25 Active primidone (Mysoline) 50 MG tablet Take 50 mg by mouth at bedtime. 08/03/20 24 025 Discontinued(Me d list cleanup (will not trigger notification to Pharmacy)) DULoxetine (Cymbalta) [address] capsule Take by mouth. Take 1 capsule by mouth at bedtime 08/31/20 24 025 Discontinued(Me d list cleanup (will not trigger notification to Pharmacy)) polyethylene glycol, PEG, 3350 (Glycolax) 17 GM/SCOOP powder Take by mouth. [DISSOLVE 17 GRAMS IN 8 OUNCES OF WATER, COFFEE, OR TEA AND DRINK TWICE DAILY DIRECTED] 025 Discontinued(Me d list cleanup (will not trigger notification to Pharmacy)) esomeprazole (NexIUM) [address] capsule TAKE 1 CAPSULE BY MOUTH EVERY MORNING 025 Discontinued(Me d list cleanup (will not trigger notification to Pharmacy)) gabapentin (Neurontin) 300 MG capsuleIndicati ons:Pain TAKE 1 CAPSULE BY MOUTH THREE TIMES DAILY IN THE MORNING, EVENING, AND BEDTIME 90 capsule 09/26/20 025 Discontinued cetirizine (ZyrTEC) 2.5 MG chewable split tablet 10 mg. 05/26/20 025 Discontinued(Me d list cleanup (will not trigger notification to Pharmacy)) DULoxetine (Cymbalta) [address] capsule 30 mg. 10/02/20 025 Discontinued(Me d list cleanup (will not trigger notification to Pharmacy)) Active Problems Problem Noted Date Diagnosed Date Chronic pain of left knee 11/07/2024 Overview (11/14/2024): -seen by Ariel Morocho PA-C of [facility] 11/07/23 -MR/MR knee LT wo con 11/14/24 IMPRESSION: Moderate joint effusion. 2.0 cm probable ganglion cyst posterior to the medial tibial plateau. Moderate patellofemoral osteoarthritis. Mild osteoarthritis of the medial compartment. Neck pain 07/05/2024 Overview (07/05/2024): Pt reports pain in neck, seemingly muscular in nature. -Will prescribe lidocaine patches to reevaluate. Assessment & Plan (07/05/2024 10:47 AM EDT): Pt reports pain in neck, seemingly muscular in nature. -Will prescribe lidocaine patches to reevaluate. Prediabetes 07/05/2024 Overview (07/05/2024): Lab Results Component Value Date HGBA1C 5.9 07/05/2024 HGBA1C 5.7 12/27/2023 HGBA1C 5.7 01/18/2023 GLUCOSE 109 05/31/2023 GLUCOSE 114 10/01/2022 Other irritable bowel syndrome 05/29/2024 Overview (05/29/2024): -Followed by Alfreda Mendez MD, Seen 05/29/24 Vasovagal syncope 03/16/2024 Overview (10/03/2024): Syncopal event when bending over 10/01/2022 which was thought to be blood pressure related. Syncopal event in November after a cabinet fell on her foot which sounded more vasovagal. Then she reported 3 more episodes which were preceded by getting diaphoretic then having loss of consciousness. She has no known triggers to these episodes. Presumed to have vasovagal syncope. She did have echocardiogram on 12/28/2022 which was normal. Cardiac event monitor on 12/28/22 for 30 days showed sinus rhythm, average heart rate 68, no significant arrhythmias. Blood pressure is has been normal range. She was not orthostatic on prior visit. A tilt-table test was completed on 03/13/2024 showing negative study for neurocardiogenic syncope. Patient does have mobility issues from fibromyalgia which may have contributed. She also is describing symptoms of lightheadedness when turning head [id number] which sounds more like vertigo. No clear cardiac finding for her syncope. She does have known history of vertigo and has meclizine that she can use if needed for that symptom. Continue with good hydration, use much caution when sitting to standing, use ambulatory assistive devices if needed. Do not drive if feeling lightheaded. Followed by cardiology Daily Fitzpatrick NP, seen 03/16/24 Cardiology follow-up 6 months, sooner if needed. Seen by Dr. Tanner 09/2024, hydrochlorothiazide discontinued 09/2024 Adrenal nodule 09/15/2023 Overview (11/14/2024): Incidental noted on ER CT CT abdomen pelvis w IV con 08/27/2023 revealed ADRENAL GLANDS: There is a 1.1 cm low-density left adrenal nodule. -no evidence of Chushinoid signs, recheck 1 year -ordered repeat CT 07/05/24, done but not read by radiology until 10/06/24: Left adrenal gland: There is a 9 mm isodense nodule measuring 40 Hounsfield units in the non- IV contrast exam. -will refer to endocrinology for further evaluation -seen by endocrinology Dr. Vences 11/03/23 initial evaluation of left 1 cm adrenal incidentaloma. She had CT scan in August 2024 which showed 9 mm left-sided adrenal nodule with 40 Hounsfield unit, which is stable from size compared to CT scan in 2020 when this measured 9 mm, with precontrast 31 Hounsfield units and postcontrast 85 Hounsfield units. Given stability in size this is reassuring of most likely a benign nodule. However Hounsfield units are on the higher side hence I would plan to repeat a CT focused on adrenal gland with the adrenal gland washout in 08/2025. -CT/CT abdomen pelvis wo IV con 11/13/24IMPRESSION: Stable small fat-containing umbilical hernia. Stable 10 mm left adrenal nodule which likely represents an adenoma. Assessment & Plan (10/09/2024 10:08 AM EST): Incidental noted on ER CT CT abdomen pelvis w IV con 08/27/2023 revealed ADRENAL GLANDS: There is a 1.1 cm low-density left adrenal nodule. -no evidence of Chushinoid signs, recheck 1 year -ordered repeat CT 07/05/24, done but not read by radiology until 10/06/24: Left adrenal gland: There is a 9 mm isodense nodule measuring 40 Hounsfield units in the non- IV contrast exam. -will refer to endocrinology for further evaluation Assessment & Plan (09/15/2023 12:15 PM EST): Incidental noted on ER CT CT abdomen pelvis w IV con 08/27/2023 revealed ADRENAL GLANDS: There is a 1.1 cm low-density left adrenal nodule. -no evidence of Chushinoid signs, recheck 1 year Hypercholesteremia 09/13/2023 Overview (09/13/2023): Lab Results Component Value Date TRIG 117 07/29/2023 -continue lifestyle modifications Urinary incontinence 07/26/2023 Overview (07/26/2023): Referral to Urology done 07/26/2023. Assessment & Plan (07/26/2023 10:41 AM EDT): Referral to Urology done 07/26/2023. Preventative health care 07/21/2023 Overview (07/05/2024): -next physical exam due after 07/05/25 -eye care facilitated by -dental home is -Health care proxy given and filed 07/05/24 Assessment & Plan (07/05/2024 10:40 AM EDT): -next physical exam due after 07/05/25 -eye care facilitated by -dental home is -Health care proxy given and filed 07/05/24 Assessment & Plan (07/26/2023 10:32 AM EDT): -next physical exam due after 07/26/2024. -eye care facilitated by -dental home is Mild intermittent asthma 07/21/2023 Overview (07/21/2023): She is controlled on Adviar 550mcg BID and Albuterol prn. -continue advair -continue albuterol prn -pfts 12/20/18 were nml -continue Claritin Assessment & Plan (07/05/2024 10:42 AM EDT): She is controlled on Adviar 550mcg BID and Albuterol prn. -continue advair -continue albuterol prn -pfts 12/20/18 were nml -continue Claritin Assessment & Plan (07/21/2023 1:56 PM EDT): She is controlled on Adviar 550mcg BID and Albuterol prn. -continue advair -continue albuterol prn -pfts 12/20/18 were nml -continue Claritin Mild tricuspid valve regurgitation 10/20/2022 Assessment & Plan (10/20/2022 9:42 PM EST): -Previously [place] [facility] last available consult note from 2019. -Referral to re-establish care with [facility] Essential hypertension 12/12/2018 Overview (10/03/2024): Followed by Dr. Riky Tanner MD at [facility]. Note from 09/2024 reviewed. -Blood pressure is at goal -Continue lifestyle modifications -Continue current medications -hydrochlorothiazide discontinued by Dr. Tanner 09/2024 Assessment & Plan (07/05/2024 10:41 AM EDT): -Blood pressure is at goal -Continue lifestyle modifications -Continue current medications Assessment & Plan (07/21/2023 1:54 PM EDT): -Blood pressure is at goal -Continue lifestyle modifications -Continue current medications Assessment & Plan (12/22/2022 12:37 PM EST): Uncontrolled today, likely related to acute asthma exacerbation. Encouraged to take amlodipine + hydrochlorothiazide as usual Check BP at home TID and fu w nurse for BP check in 3w Assessment & Plan (10/20/2022 9:51 PM EST): -Encouraged BP monitoring at home, w/ return parameters -Continue current med regimen: -amlodipine 10mg daily -hydrochlorothiazide 25 mg daily -Encourage low salt diet and daily exercise Fibromyalgia 12/12/2018 Overview (07/05/2024): Explained that FM is a type of nerve hypersensitivity and that physical activity is not contraindicated; in fact, it may improve symptomsrecommended our group acupuncture program, stress reduction, etc. -Encouraged acupuncture clinic 09/15/2023, hand out given -Rx for cane per her request 09/15/2023 -She has 2 [employer] 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 -Encouraged acupuncture clinic 09/15/2023, hand out given -Rx for cane per her request 09/15/2023 -She has 2 [employer] hours per week Assessment & Plan (07/21/2023 1:56 PM EDT): Explained that FM is a type of nerve hypersensitivity and that physical activity is not contraindicated; in fact, it may improve symptoms recommended our group acupuncture program, stress reduction, etc. Obstructive sleep apnea syndrome 12/12/2018 Overview (10/11/2024): Followed by [facility]. Sleep study 10/07/18 reveals severe SILVER. -Currently using CPAP nightly She started 11/05/2018 -seen by CIARA Lepe on 10/09/24 continue CPAP 14 cmH2O. Supplies are though [facility] Assessment & Plan (07/21/2023 1:56 PM EDT): Followed by [facility]. Sleep study 10/07/18 reveals severe SILVER. -Currently using CPAP nightly She started 11/05/2018 Backache 09/12/2014 Allergic rhinitis 04/20/2012 Anxiety 04/20/2012 Carpal tunnel syndrome 04/20/2012 Overview (08/01/2024): [facility]CS 2018 NERVE CONDUCTION EMG STUDY: This motor and sensory nerve conduction study of the upper extremities is essentially within normal limits with suggestion of an early carpal tunnel syndrome on the left. Normal EMG of the left C5-T1 innervated muscles. Repeat ordered 07/2022, she reprots she was supposed to have surgery but she did not due to other medical issues at the time. She requests new referral 09/15/2023. Was referred back in 09/2023, but will place new referral again 07/05/24 -seen by ortho 07/31/24 Bilateral hand numbness and tingling Symptoms intermittent, but daily, worse at night At this time, patient is referred for EMG and nerve conduction study to assess the health of the nerves of bilateral upper extremities Patient was referred to occupational hand therapy for range of motion, strengthening of bilateral hands Assessment & Plan (07/05/2024 10:39 AM EDT): NCS 2019 NERVE CONDUCTION EMG STUDY: This motor and sensory nerve conduction study of the upper extremities is essentially within normal limits with suggestion of an early carpal tunnel syndrome on the left. Normal EMG of the left C5-T1 innervated muscles. Repeat ordered 07/2022, she reprots she was supposed to have surgery but she did not due to other medical issues at the time. She requests new referral 09/15/2023. Was referred back in 09/2023, but will place new referral again today 07/05/24 Assessment & Plan (09/15/2023 12:17 PM EST): NCS 2019 NERVE CONDUCTION EMG STUDY: This motor and sensory nerve conduction study of the upper extremities is essentially within normal limits with suggestion of an early carpal tunnel syndrome on the left. Normal EMG of the left C5-T1 innervated muscles. Repeat ordered 07/2022, she reprots she was supposed to have surgery but she did not due to other medical issues at the time. She requests new referral 09/15/2023 Assessment & Plan (07/21/2023 1:57 PM EDT): NCS 2019 NERVE CONDUCTION EMG STUDY: This motor and sensory nerve conduction study of the upper extremities is essentially within normal limits with suggestion of an early carpal tunnel syndrome on the left. Normal EMG of the left C5-T1 innervated muscles. Repeat ordered 07/2022 Major depression single episode, in partial bony ssion 04/20/2012 Overview (11/14/2024): >>OVERVIEW FOR DEPRESSIVE DISORDER WRITTEN ON 07/05/2024 10:40 AM BY CHELITA CONRYO At visit in 11/2017, we stopped depo, as we presumed was causing depression Depression has not improved, as she is being seen by psychiatrist and therapist. No SI/HI. Reports going to [facility], where she sees her specialists. Assessment & Plan (11/14/2024 7:39 PM EST): >>ASSESSMENT AND PLAN FOR DEPRESSIVE DISORDER WRITTEN ON 07/21/2023 1:56 PM BY SHELLI ARRIETA At visit in 11/2017, we stopped depo, as we presumed was causing depression Depression has not improved, as she is being seen by psychiatrist and therapist. No SI/HI Assessment & Plan (11/14/2024 7:39 PM EST): >>ASSESSMENT AND PLAN FOR DEPRESSIVE DISORDER WRITTEN ON 07/05/2024 10:40 AM BY CHELITA CONROY At visit in 11/2017, we stopped depo, as we presumed was causing depression Depression has not improved, as she is being seen by psychiatrist and therapist. No SI/HI. Reports going to [facility], where she sees her specialists. Resolved Problems Problem Noted Date Diagnosed Date Resolved Date Mild intermittent asthma with exacerbation 12/22/2022 07/21/2023 Assessment & Plan (12/22/2022 12:36 PM EST): URI. Albuterol inh with aero chamber now and continue at home q 6h x 2d, then tid x 3 more days then prn only. She'll be out of work x 2d, back on 12/24. Continue Advair bid Recons. prn if sxs do not improve within 48h Asthma 04/20/2012 07/21/2023 Encounters Date Type Department Care Team Description 11/11/2024 Orders Only [facility] External Provider, [facility] Chronic pain of left knee (Primary Dx) 11/10/2024 Orders Only [facility]PART[facility] Provider, Generic External Data 11/09/2024 Orders Only [facility] External Provider, [facility] Adrenal nodule ([facility]) (Primary Dx) 11/09/2024 Telephone [facility] [address] [place] [address] Berto Schroeder MA December recall 11/06/2024 Orders Only GENERIC EXTERNAL DATA DEPARTMENT Provider, Generic External Data 11/02/2024 Refill [facility] [address] [place] [address] Alvina Mccartney MD Pain 10/16/2024 Telephone [facility] [address], [place] [phone] Alvina Mccartney MD 10/09/2024 Telephone [facility] [address] [place] [address], [place] [address] Harleen Paredes RNdriftman Referral 10/06/[address] [place] [address] [place], [place] Alvina Record Request 10/06/[address] [address] [place], [place] Alvina 10/06/2024 Orders Only [facility] [address] [place] [address], [place] [address] [place], [place] Alvina 09/26/[address] [place] [address] [place], [place] Alvina Pain 09/25/[address] [address] [place], [place] Alvina 09/25/[address] [address] Alvina Mccartney MD 09/06/[address] [address] [place], [place] Alvina 09/02/2024 Travel 08/31/[address] [address] [place], [place] Alvina Pain from Last 3 Months Immunizations Name Administration Dates Next Due Hep A, Adult 07/05/2024 Hep B, adult 08/10/2019,12/12/2018,08/07/2002 Influenza injectable quadriv alent IIV4 with preservative 08/11/2018,10/14/2017 Influenza injectable quadriv alent preservative free 07/26/2023,08/10/2019,09/12/2014 Influenza, Split (incl. soledad fied surface antigen) 07/28/2012 MMR 08/04/2002,07/13/1997 Moderna Covid-19 Vaccine 12+ 02/14/2021,01/18/20 21 Pneumococcal Conjugate PCV 13 12/12/2018 Pneumococcal Polysaccharide PPSV23 10/14/2017 TD (adult), 2 Lf tetanus tox oid, preservative free, adsorbed 07/13/1997 Tdap 07/26/2023,07/28/2012 Family History Medical History Relation Name Comments Diabetes Father Hyperlipidemia Father Hypertension Father Diabetes Mother Hyperlipidemia Mother Hypertension Mother Diabetes Sister Hyperlipidemia Sister Hypertension Sister Relation Name Status Comments Father Mother Sister Social History Tobacco Use Types Packs/Day Years Used Date Smoking Tobacco: Never Passive Smoke Exposure: Never Smokeless Tobacco: Never Tobacco Cessation:Counseling Given: Not Answered Alcohol Use Standard Drinks/Week Comments Never 0 [...] Orientation Straight 08/31/2022 10 :14 AM EDT Last Filed Vital Signs Vital Sign Reading Time Taken Comments Blood Pressure 126/72 07/05/2024 10:10 AM EDT Pulse 60 07/05/2024 10:10 AM EDT Temperature 36.4 ??C (97.6 ??F) 07/05/2024 10:10 AM E DT Respiratory Rate 20 07/05/2024 10:10 AM EDT Oxygen Saturation 97% 12/27/2023 3:46 PM EST Inhaled Oxygen Concentration - - Weight 78.9 kg (174 lb) 07/05/2024 10:10 AM EDT Height 160 cm (5' 3 ) 07/05/2024 10:10 AM EDT Body Mass Index 30.82 07/05/2024 10:10 AM EDT Plan of Treatment Upcoming Encounters Date Type Department Care Team (Late st Contact Info) Description 01/01/2025 9:45 AM EST Office Visit [facility] [address] [place] [address] Alvina Mccartney MD [address] [place], [place] [phone] Health Maintenance Due Date Last Done Comments CT Colonography 1972 FIT DNA/Cologuard 1972 FIT 1972 FOBT 1972 Sigmoidoscopy 1972 Alcohol/Substance Use Screening 1984 Family Planning (PISQ) 1987 Zoster Vaccines (1 of 2) 2022 Pneumococcal Vaccine: 50+ Years (3 of 3 - PCV20 or PCV21) 12/12/2023 12/12/2018, 10/14/2017 COVID-19 Vaccine (3 - season) 2024 02/14/2021, 01/17/2021 Influenza Vaccine (#1) 2024 , 08/10/2019, 08/11/2018, Additional history exists Depression Screening 07/26/2024 07/26/2023, 07/26/20 23 SDOH Screening 07/26/2024 07/26/2023 Mammogram 12/01/2024 12/01/2023, 11/01, 11/16/2021, Additional history exists Diabetes: Hemoglobin A1C 07/05/2025 024, 12/27/2023, 01/18/2023 Tobacco Screening 07/05/2025 07/05/2024 Cervical Cancer Screening 07/26/2028 HPV/Cotest 07/26/2028 07/26/2023, 04/01/2017 Pap Smear 07/26/2028 07/26/2023, 04/01/2017 Colonoscopy 04/04/2029 04/04/2024, 08/21/2019 Colorectal Cancer Screening 04/04/2029 Lipid Panel 07/08/2029 07/08/2024, 07/29/2023 DTaP/Tdap/Td Vaccines (3 - Td or Tdap) 07/26/2033 07/26/2023, 07/28/2012, 07/13/1997 RSV Patients and Patients Aged 60 years or older (1 - 1-dose 75+ series) 2047 Hepatitis B Vaccines Completed 08/10/2019, 12/12/2018, 08/07/2002 HIV Screening Completed 01/21/2021 Hepatitis C Screening Completed 07/29/2023 Hepatitis A Vaccines Aged Out 07/05/2024 No long er eligible based on patient's age to complete this topic HIB Vaccines Aged Out No longer eligi ble based on patient's age to complete this topic HPV Vaccines Aged Out No longer eligi ble based on patient's age to complete this topic IPV Vaccines Aged Out No longer eligi ble based on patient's age to complete this topic Meningococcal Vaccine Aged Out No anna hood eligible based on patient's age to complete this topic RSV under 20 months Aged Out No longe r eligible based on patient's age to complete this topic Rotavirus Vaccines Aged Out No longer eligible based on patient's age to complete this topic Procedures Procedure Name Priority Date/Time Associated Diagnosis Comments MR KNEE WO CONTRAST LEFT Routine 11/11/2024 7:52 PM EST DEXAMETHASONE Routine 11/10/2024 8:10 AM EST ACTH, PLASMA Routine 11/10/2024 8:10 AM EST CORTISOL RANDOM Routine 11/10/2024 8:[address] ABDOMEN PELVIS WO CONTRAST Routine 11/09/2024 4:44 PM EST PLASMA RENIN ACTIVITY, LC/MS/MS Routine 11/06/2024 7:50 AM EST METANEPHRINES, FRACT, FREE, LC/MS/MS, PLASMA Routine 11/06/2024 7:50 AM EST ALDOSTERONE, LC/MS/MS Routine 11/06/2024 7:50 AM EST ACTH, PLASMA Routine 11/06/2024 7:50 AM EST DHEA SULFATE Routine 11/06/2024 7:50 AM EST CORTISOL RANDOM Routine 11/06/2024 7:50 AM EST BASIC METABOLIC PANEL Routine 11/06/2024 7:50 AM EST LIPID PANEL, STANDARD Routine 07/08/2024 9:02 AM EDT Essential hypertension POCT GLYCATED HEMOGLOBIN, TOTAL Routine 07/05/2024 10:53 AM EDT Essential hypertension HM COLONOSCOPY Routine 04/04/2024 BI MAMMOGRAM SCREENING TOMOSYNTHESIS BILATERAL Routine 12/01/2023 2:40 PM EST HEPATITIS C ANTIBODY Routine 07/29/2023 9:23 AM EDT Encounter for hepatitis C screening test for low risk patient HPV MRNA E6/E7 REFLEX TO HPV 16, 18/45 Routine 07/26/2023 10:57 AM EDT PAP SMEAR Routine 07/26/2023 10:57 AM EDT HM HIV 1/2 ANTIGEN AND ANTIBODY Routine 01/21/2021 from Last 3 Months or Most Recently Relevant to Health Maintenance Results * MR Knee w/o Contrast Left (11/11/2024 7:52 PM EST) Anatomical Region Laterality Modality Magnetic Resonan ce 11/11/2024 7:52 PM EST Narrative 11/14/2024 8:36 AM EST ? [facility] ?[address] ?[place] [address] ? Magnetic Resonance Report ? Signed ? Patient: Paulo,Lety ?MR#: [id number] ?? [id number] ? : 1970 ?Acct:[id number] ? Age/Sex: 54 / F ?ADM Date: 11/11/24 ? Loc: HO.MRI ? Attending Dr: Ariel Morocho PA-C ? Ordering Physician: Ariel Morocho PA-C ?? Date of Service: 11/11/24 ?? Procedure(s): MR knee LT wo con ?? Accession Number(s): [id number] ? cc: Alvina Mccartney MD; Ariel Morocho PA-C ? EXAMINATION: MRI LEFT KNEE WITHOUT CONTRAST ? HISTORY: M17.12 - Unilateral primary osteoarthritis, left knee ? COMPARISON: Correlation is made with plain films of the left knee dated ?? 11/06/2024. ? TECHNIQUE: ??Coronal T1 and fat-suppressed proton density, sagittal ?? proton density and fat-suppressed proton density, and axial fat ?? suppressed T2 weighted MR images of the left knee were obtained. ? FINDINGS: ?? Bone marrow signal intensity is normal. There is a moderate ?? suprapatellar joint effusion. There is no Gatica's cyst. There is an ?? approximately 2.0 cm multiseptated cystic structure posterior to the ?? medial tibial plateau, which may represent a ganglion cyst. ? The anterior and posterior cruciate ligaments and medial and lateral ?? collateral ligaments are intact. The medial and lateral menisci are ?? intact. ? The patellar and quadriceps tendons and patellar retinacula are ?? unremarkable in appearance. The popliteus tendon is intact. There is ?? moderate osteoarthritis of the patellofemoral compartment with ?? cartilage loss and subchondral marrow changes. Milder changes are noted ?? involving the medial compartment. ? MR/MR knee LT wo con ?? IMPRESSION: ? 1. Moderate joint effusion. 2.0 cm probable ganglion cyst posterior to ?? the medial tibial plateau. ? 3. Moderate patellofemoral osteoarthritis. Mild osteoarthritis of the ?? medial compartment. ? Electronically signed by: ??Elder Esparza MD ??11/14/2024 08:33 AM EST ?? RP ? Dictated By: ?Elder Esparza MD ? Signed By: ?<Electronically signed by Elder Esparza MD in OV> ?11/14/24832 ? DD/ 51 ? TD/TT: 11/11/24 2015 ? Wooden Box Maker: ? Procedure Note Donamieter, Image - 11/14/[address] [address] Magnetic Resonance Report Signed Patient: Luann Bates#: [id number] 1571 : 1970Acct:[id number] Age/Sex: 54 / FADM Date: 11/11/24 Loc: HO.MRI Attending Dr: Ariel Morocho PA-C Ordering Physician: Ariel Morocho PA-C Date of Service: 11/11/24 Procedure(s): MR knee LT wo con Accession Number(s): [id number] cc: Alvina Mccartney MD; Ariel Morocho PA-C EXAMINATION: MRI LEFT KNEE WITHOUT CONTRAST HISTORY: M17.12 - Unilateral primary osteoarthritis, left knee COMPARISON: Correlation is made with plain films of the left knee dated 11/06/2024. TECHNIQUE: Coronal T1 and fat-suppressed proton density, sagittal proton density and fat-suppressed proton density, and axial fat suppressed T2 weighted MR images of the left knee were obtained. FINDINGS: Bone marrow signal intensity is normal. There is a moderate suprapatellar joint effusion. There is no Gatica's cyst. There is an approximately 2.0 cm multiseptated cystic structure posterior to the medial tibial plateau, which may represent a ganglion cyst. The anterior and posterior cruciate ligaments and medial and lateral collateral ligaments are intact. The medial and lateral menisci are intact. The patellar and quadriceps tendons and patellar retinacula are unremarkable in appearance. The popliteus tendon is intact. There is moderate osteoarthritis of the patellofemoral compartment with cartilage loss and subchondral marrow changes. Milder changes are noted involving the medial compartment. MR/MR knee LT wo con IMPRESSION: 1. Moderate joint effusion. 2.0 cm probable ganglion cyst posterior to the medial tibial plateau. 3. Moderate patellofemoral osteoarthritis. Mild osteoarthritis of the medial compartment. Electronically signed by: Elder Esparza MD 11/14/2024 08:33 AM EST Dictated By: Elder Esparza MD Signed By: <Electronically signed by Elder Esparza MD in OV> 11/14/24832 DD/ 51 TD/TT: 11/11/242014 Wooden Box Maker: [facility] External Provider IMG MRI PROCEDURES Final Result * Dexamethasone (11/10/2024 8:10 AM EST) Dexamethasone 260 ng/dL [facility] Comment:Reference Ranges for Dexamethasone:Baseline: Less than 20 ng/dL1 mg dexamethasone overnight: 180-550 ng/dL (8:00-10:00 AM)This test was developed and its analytical performancecharacteristics have been determined by [facility].It has not been cleared or approved by FDA. This assay hasbeen validated pursuant to the CLIA regulations and is usedfor clinical purposes.THIS TEST WAS PERFORMED AT:[employer] CRI[address] [place] [address]HDVTRTIA COTTON MD,PHD,JENNIFER 11/10/2024 8:10 AM EST 11/10/2024 8:10 AM EST Generic External Data Provider LAB BLOOD ORDERAB LES Final Result [facility] [address] [place] [phone] * Cortisol Random (11/10/2024 8:10 AM EST) Only the most recent of2 resultswithin the time period is included. Cortisol Random <1.0 ug/dL [facility] Comment:Reference Range*: Be fore 10 am 6.2-19.4 ug/dL After 5 pm 2.3-11.9 ug/dL*Please interpret above results accordingly.This test was performed using the [employer] chemiluminescentmethod. Values obtained from different assay methods cannotbe used interchangeably.Patients receiving fludrocortisone, prednisolone orprednisone may show artificially elevated cortisol valuesdue to cross-reactivity. 11/10/2024 8:10 AM EST 11/10/2024 8:10 AM EST Generic External Data Provider LAB BLOOD ORDERAB LES Final Result Performing Organization Address [facility] Co de Phone Number [facility] [address] [place] [phone] * (ABNORMAL) ACTH, Plasma (11/10/2024 8:10 AM EST) Only the most recent of2 resultswithin the time period is included. ACTH, Plasma <5(A) 6 - 50 pg/mL [facility] Comment:Reference range appl ies only to specimens collectedbetween 7am-10am.THIS TEST WAS PERFORMED AT:[employer] [place] [address]SLTMTUN W. MASON,MD,PHD 11/10/2024 8:10 AM EST 11/10/2024 8:10 AM EST us Generic External Data Provider LAB BLOOD ORDERAB LES Final Result Performing Organization Address [facility] Co de Phone Number [facility] [address] [place] [phone] * CT Abdomen Pelvis w/o Contrast (11/09/2024 4:44 PM EST) Anatomical Region Laterality Modality Body, Pelvis, Abdomen Computed T omography 11/09/2024 4:44 PM EST Narrative 11/13/2024 1:20 PM EST ? [facility] ?[address] ?[place] [address] ? CT Scan Report ? Signed ? Patient: Paulo,Lety ?MR#: [id number] ?? 1571 ? : 1970 ?Acct:[id number] ? Age/Sex: 54 / F ?ADM Date: 11/09/24 ? Loc: HO.CT ? Attending Dr: Kendall Bates MD ? Ordering Physician: Kendall Bates MD ?? Date of Service: 11/09/24 ?? Procedure(s): CT abdomen pelvis wo IV con ?? Accession Number(s): [id number] ? cc: Alvina Mccartney MD; Kendall Bates MD ? Report Number: ?? [id number]: Total DLP = ??506.00 mGy-cm ?? EXAMINATION: [...] ??Elder Esparza MD ??11/13/2024 01:17 PM EST ? Dictated By: ?Elder Esparza MD ? Signed By: ?<Electronically signed by Elder Esparza MD in OV> ?11/13/24 1317 ? DD/ 1644 ? TD/TT: 11/09/24 1651 ? Wooden Box Maker: ? Procedure Note Talya Mcfadden - 11/13/[address] [address] [address] Scan Report Signed Patient: Luann Bates#: [id number] 1571 : 1970Acct:[id number] Age/Sex: 54 / FADM Date: 11/09/24 Loc: HO.CT Attending Dr: Kendall Bates MD Ordering Physician: Kendall Bates MD Date of Service: 11/09/24 Procedure(s): CT abdomen pelvis wo IV con Accession Number(s): [id number] cc: Alvina Mccartney MD; Kendall Bates MD Report Number: [id number]: Total DLP = 506.00 mGy-cm EXAMINATION: CT [...] 11/13/24 1317 DD/ 1644 TD/TT: 11/09/24 1651 Wooden Box Maker: [facility] External Provider IMG CT PROCEDURES Final Result * Metanephrines, Fractionated, Free, LC/MS/MS, Plasma (11/06/2024 7:50 AM EST) Metanephrine, Free 49 <=57 pg/mL [facility] Comment:This test was develo ped and its analytical performancecharacteristics have been determined by [employer] [place], [place]. It hasnot been cleared or approved by the U.S. Food and DrugAdministration. This assay has been validated pursuantto the CLIA regulations and is used for clinicalpurposes. Normetanephrine, Free 81 <=148 pg/mL [facility] Comment:This test was develo ped and its analytical performancecharacteristics have been determined by [employer] [place], [place]. It hasnot been cleared or approved by the U.S. Food and DrugAdministration. This assay has been validated pursuantto the CLIA regulations and is used for clinicalpurposes. Total, Free (MN+NMN) 130 <=205 pg/mL [facility] Comment: For additional information, please refer tohttp://education.[employer]/faq/MetFractFree(This link is being provided for informational/educatioinformational/educational purposes [...] its analytical performancecharacteristics have been determined by [employer] [place], [place]. It hasnot been cleared or approved by the U.S. Food and DrugAdministration. This assay has been validated pursuantto the CLIA regulations and is used for clinicalpurposes.THIS TEST WAS PERFORMED AT:[employer] [place], [place] ??[address]XXFHCGZFERMÍN CHEUNG MD,PHD 11/06/2024 7:50 AM EST 11/06/2024 7:56 AM EST us Generic External Data Provider LAB BLOOD ORDERAB LES Final Result [facility] [address] [place] [phone] * Aldosterone, LC/MS/MS (11/06/2024 7:50 AM EST) Aldosterone, LC/MS/MS 4 see note ng/dL [facility] Comment:Unable to flag abnor mal result(s), please refer to reference range(s) below:Adult Reference Ranges for Aldosterone, LC/MS/MS: Upright 8:00 - 10:00 am < or = 28 ng/dL Upright 4:00 - 6:00 pm < or = 21 ng/dL Supine 8:00 - 10:00 am 3 - 16 ng/dLThis test was developed and its analytical performancecharacteristics have been determined by [employer] [place], [place]. It hasnot been cleared or approved by the U.S. Food and DrugAdministration. This assay has been validated pursuantto the CLIA regulations and is used for clinicalpurposes.THIS TEST WAS PERFORMED AT:[facility] [place] [address]ADIBVTDFERMÍN CHEUNG MD,PHD 11/06/2024 7:50 AM EST 11/06/2024 7:56 AM EST Generic External Data Provider LAB BLOOD ORDERAB LES Final Result Performing Organization Address [facility]/ZIP Co de Phone Number [facility] [address] [place] [phone] * Plasma Renin Activity, LC/MS/MS (11/06/2024 7:50 AM EST) [facility] Plasma Renin Activity, LC/MS/MS 0.85 0.25 - 5.82 ng/mL/h [facility] Comment:This test was develo ped and its analytical performancecharacteristics have been determined by [employer] [place], [place]. It hasnot been cleared or approved by the U.S. Food and DrugAdministration. This assay has been validated pursuantto the CLIA regulations and is used for clinicalpurposes.THIS TEST WAS PERFORMED AT:[employer].meVWSXIVPKC[address] [place] [address]RXPXOTEFERMÍN CHEUNG MD,PHD 11/06/2024 7:50 AM EST 11/06/2024 7:56 AM EST Generic External Data Provider LAB BLOOD ORDERAB LES Final Result Performing Organization Address City/[facility]/ZIP Co de Phone Number [facility] [address] [place] [phone] * DHEA Sulfate (11/06/2024 7:50 AM EST) DHEA Sulfate 74 5 - 167 mcg/dL [facility] Comment:THIS TEST WAS PERFOR MED AT:[facility] [place] [address]YEWZZSHADE CALIX MD 11/06/2024 7:50 AM EST 11/06/2024 7:56 AM EST us Generic External Data Provider LAB BLOOD ORDERAB LES Final Result Performing Organization Address [facility]/ZIP Co de Phone Number [facility] [address] [place] [phone] * (ABNORMAL) Basic Metabolic Panel (11/06/2024 7:50 AM EST) Pathologist [facility] Sodium 142 135 - 145 mmol/L [facility] Potassium 4.0 3.3 - 5.1 mmol/L [facility] Chloride 109(H) 96 - 108 mmol/L [facility] Carbon Dioxide 25 22 - 29 mmol/L [facility] Anion Gap 12 12 - 20 [facility] Urea Nitrogen (BUN) 23(H) 9 - 16 mg/dL [facility] Creatinine, Serum 0.75 0.5 - 1.4 mg/dL [facility] Estimated Glomerular Filt Rate >60 [facility] Comment:Chronic Kidney Disea se: Estimated GFR < 60 mL/min/1.78s1Hgxrsg Kidney Disease: Estimated GFR < 15 mL/min/1.73m2 Glucose 75 60 - 115 mg/dL [facility] Calcium 9.8 8.4 - 10.2 mg/dL [facility] 11/06/2024 7:50 AM EST 11/06/2024 7:56 AM EST us Generic External Data Provider LAB BLOOD ORDERAB LES Final Result Performing Organization Address City/[facility]/ZIP Co de Phone Number [facility] [address] [place] [phone] * (ABNORMAL) Lipid Panel, Standard (07/08/2024 9:02 AM EDT) Triglycerides 101 <150 mg/dL [facility] Comment:Desirable Triglyceri de: less than 150 mg/dLBorderline High Triglyceride 150-199 mg/dLHigh Triglyceride: 200-499 mg/dLVery High Triglyceride: greater than or equal to 5OO mg/dL Cholesterol 184 <200 mg/dL [facility] Comment:Desirable Cholestero l: less than 200 mg/dLBorderline High Cholesterol: 200-239 mg/dLHigh Cholesterol: greater than 239 mg/dL LDL Cholesterol Calculated 128(H) <100 mg/dL [facility] Comment:Desirable LDL: less than 100 mg/dLNear Optimal/Above Optimal LDL: 110- 129 mg/dLBorderline High LDL: 130-159 mg/dLHigh LDL: 160-189 mg/dLVery High LDL: greater than or equal to 190 mg/dL HDL Cholesterol 36(L) >40 mg/dL [facility] Comment:Desirable HDL: great er than 40 mg/dL Note: This HDL assay may give artificially low results in patients with liver disease. Blood Venous blood specimen / Unknown 07/08/2024 9:02 AM EDT 07/08/2024 9:02 AM EDT Alvina Mccarteny MD LAB BLOOD ORDERABLES Final Result [facility] [address] [place] [phone] * POCT HGB A1C (07/05/2024 10:53 AM EDT) Hemoglobin A1C 5.9 4.0 - 6.0 % QC Media Lot # [id number] Lot# Expiration Date [id number] Blood 07/05/2024 10:5 3 AM EDT Alvina Mccartney MD POINT OF CARE TEST ENTER/E DIT ORDERABLES Final Result * Hm Colonoscopy (04/04/2024) Colonoscopy Normal Normal 04/04/2024 Historical Provider HEALTH MAINTENANCE Final Result * BI Mammogram Screening Tomosynthesis Bilateral (12/01/2023 2:40 PM EST) Anatomical Region Laterality Modality Breast Bilateral Mammography 12/01/2023 2:40 PM EST Narrative 12/23/2023 9:55 PM EST ? [facility] [place] ? [address] ?[place] [address] ? Mammography Report ? Signed ? Patient: Paulo,Lety ?MR#: [id number] ?? 1571 ? : 1970 ?Acct:[id number] ? Age/Sex: 53 / F ?ADM Date: 12/01/23 ? Loc: HO.MAMMO ? Attending Dr: Alvina Mccartney MD ? Ordering Physician: Alvina Mccartney MD ?Results: 2B ?? enign Findings ? Date of Service: 12/01/23 ?Follow Up: 1 Year From Orig ?? inal Mammogram ? Procedure(s): MM tomosynthesis screening BI ?? Accession Number(s): [id number] ? cc: Alvina Mccartney MD ? EXAMINATION: ?? MM SCREENING DIGITAL BREAST TOMOSYNTHESIS, BILATERAL ? CLINICAL INFORMATION: ? Screening. Asymptomatic. ? COMPARISON: ?? Mammography: This study is compared with prior exams dating back to ?? 2017. ? TECHNIQUE: ?? Digital breast tomosynthesis is performed in both the craniocaudal and ?? mediolateral oblique views along with computer-aided detection (CAD). ?? Synthesized 2D images are generated from the tomosynthesis. ? FINDINGS: ?? There are scattered areas of fibroglandular density (ACR BI-RADS breast ?? composition Category b). ? There are no significant masses, abnormal calcifications, or other ?? abnormalities. ? In the lateral aspect of the left breast, there is unchanged, coarsely ?? calcifying 22 cm macrolobulated mass containing a tissue marker. This ?? represents a site of prior benign percutaneous biopsy. ? MM/MM tomosynthesis screening BI ?? IMPRESSION: ?? No mammographic evidence of malignancy. ? ASSESSMENT: ? BI-RADS BI-RADS 2 - Benign Findings ? RECOMMENDATION: ?? Routine annual mammography screening. ? 1 year F/U ? This examination should not preclude the clinical evaluation of a ?? suspicious palpable abnormality. ? This patient's information was entered into a reminder system with a ?? target due date for their next mammogram. ? Dictated By: ?Dafne Mcmahan MD ? Signed By: ?<Electronically signed by Dafne Mcmahan MD in OV> ? 12/23/23 2152 ? DD/ 1440 ? TD/TT: ? Wooden Box Maker: ? Procedure Note Lesa, Image - 12/23/2023 [facility] [address] [place] [address] Dr. Canales, NEREIDA [address] Mammography Report Signed Patient: Leidy BatesBetsy#: [id number] 1571 : 1970Acct:[id number] Age/Sex: 53 / FADM Date: 12/01/23 Loc: HO.MAMMO Attending Dr: Alvina Mccartney MD Ordering Physician: Alvina Mccartney MDResults: 2B enign Findings Date of Service: 12/01/23Follow Up: 1 Year From [facility]a Mammogram Procedure(s): MM tomosynthesis screening BI Accession Number(s): [id number] cc: Alvina Mccartney MD EXAMINATION: MM SCREENING DIGITAL BREAST TOMOSYNTHESIS, BILATERAL CLINICAL INFORMATION: Screening. Asymptomatic. COMPARISON: Mammography: This study is compared with prior exams dating back to 2018. TECHNIQUE: Digital breast tomosynthesis is performed in both the craniocaudal and mediolateral oblique views along with computer-aided detection (CAD). Synthesized 2D images are generated from the tomosynthesis. FINDINGS: There are scattered areas of fibroglandular density (ACR BI-RADS breast composition Category b). There are no significant masses, abnormal calcifications, or other abnormalities. In the lateral aspect of the left breast, there is unchanged, coarsely calcifying 22 cm macrolobulated mass containing a tissue marker. This represents a site of prior benign percutaneous biopsy. MM/MM tomosynthesis screening BI IMPRESSION: No mammographic evidence of malignancy. ASSESSMENT: BI-RADS BI-RADS 2 - Benign Findings RECOMMENDATION: Routine annual mammography screening. 1 year F/U This examination should not preclude the clinical evaluation of a suspicious palpable abnormality. This patient's information was entered into a reminder system with a target due date for their next mammogram. Dictated By: Dafne Mcmahan MD Signed By: <Electronically signed by Dafne Mcmahan MD in OV> 12/23/23 2152 DD/ 1440 TD/TT: Wooden Box Maker: us Alvina Mccartney MD IMG BI PROCEDURES Edited R esult - Final * Hepatitis C Ab (07/29/2023 9:23 AM EDT) Hepatitis C Antibody Nonreactive Nonreactive [facility] Comment:Antibodies to HCV no t detected; does not exclude early acuteHCV infection. Blood 07/29/2023 9:23 AM EDT 07/29/2023 11:00 AM EDT Alvina Mccartney MD LAB BLOOD ORDERABLES Final Result [facility] [address] [place] [phone] * HPV mRNA E6/E7 w/Reflex to HPV Genotypes 16, 18/45 (07/26/2023 10:57 AM EDT) HPV nRNA E6/E7 Not Detected Not Detected [facility] Comment:Methodology: Transcr iption-Mediated AmplificationThis assay detects E6/E7 viral messenger RNA (mRNA) from 14high-risk HPV types (16,18,31,33,35,39,45,51,52,56,58,59,66,68).Cervical sources are required for HPV testing.If a vaginal source from a patient who has had atotal hysterectomy with removal of cervix wassubmitted, please contact the testing laboratoryfor alternative testing options.For additional information, please refer tohttp://education.[employer]/faq/NGF788b5(This link if provided for information/educational purposes only.)THIS TEST WAS PERFORMED AT:[address] [place] [address]CAIWXSHADE CALIX MD HPV mRNA E6/E7 [facility] HPV 16 RNA [facility] HPV 18/45 RNA [facility] 07/26/2023 10:5 7 AM EDT 07/27/2023 9:00 AM EDT Alvina Mccartney MD LAB CYTOLOGY ORDERABLES Fi nal Result [facility] [address] [place] [phone] * Pap Smear (07/26/2023 10:57 AM EDT) 07/26/2023 10:5 7 AM EDT 07/27/2023 9:00 AM EDT Narrative [facility] - 08/02/2023 1:35 PM EDT ----- ------- Name: Lety Bates ? Age/Sex: 53/F ? : 1970 Unit#: [id number] ?? Attend Dr: Alvina Mccartney MD ?Re07/26/23 ?Status: DEP REF ? Location: [facility] ? Disch: ? ----- ------- SPEC : [id number] ?RECD: 07/27/23 ? STATUS: ??SOUT ? REQ NUM: [id number] ? AMANDA: 07/26/23-1056 ? SUBM DR: Alvina Mccartney MD ? ENTERED: ??07/27/23-938 ?SP TYPE: Pap Smr ?OTHR : ? ORDERED: ??Pap Smear ? Interpretation ?? Satisfactory for evaluation. ?? Negative for intraepithelial lesion or malignancy. ?HPV mRNA E6/E7: ?NOT DETECTED ? This assay detects E6/E7 viral messenger RNA (mRNA) from 14 high-risk HPV types (16, 18, ?? 31, 33, 35, 39, 45, 51, 52, 56, 58, 59, 66, 68) ?? HPV testing performed by [facility], [place], [place]. ??See reference laboratory ?? pion of the EMR for entire report. ?Clinical Information LMP: Unknown date Previous PAP test: Unknown date/findings ? Material Received ?? ThinPrep-Vaginal/Cervical ----- ------- Signed (signature on file) JUSTIN Arambula (ASCP) 08/02/23 3418 ? ----- ------- ? END OF REPORT ? us Alvina Mccartney MD LAB CYTOLOGY ORDERABLES Fi nal Result [facility] [address] [place] [phone] * HIV 1/2 Antigen and Antibody (01/21/2021) HIV Ag/Ab Nonreactive us Historical Provider HEALTH MAINTENANCE Final Result from Last 3 Months or Most Recently Relevant to Health Maintenance Insurance [facility] DUAL COMPLETE Advance Directives Documents on File Type Date Recorded Patient Client Development Consultant Expl anation Advance Directives and Living Will 07/07/2024 1:01 PM Health Care Proxy Care Teams Flexographic Printing Machinist Relationship Specialty Start Date End Date Alvina Mccartney MD [address] [place] [address] PCP - General Family Medicine 11/01/18 Riky Tanner [address] [place] [address] Cardiology 10/03/24 Mariella Mcdonnell [address] [phone] 10/11/24 [place] [address] Endocrinology 11/05/24 Shadia Morocho PA [address] [place] [address] Orthopaedic Surgery 11/07/24 Kendall Bates MD [address] [place] [address] General Surgery 11/28/24
--- OUTSIDE RECORDS SUMMARY | 2024-12-01 11:12 | XMS_ITS | Encounter Summary ---
Author Organization [employer] [facility], [facility] Address [address] [facility] 7t [place] [address] Care Team Providers Care Coper Hand Name Role Phone Alvina Mccartney MD Primary Care Provider [phone] Riky Tanner Unavailable Mariella Mcdonnell Unavailable [phone] Jina Vences MD Unavailable Shadia Morocho Unavailable Kendall Bates MD Unavailable Encounter Details Date Type Department Care Team (Late st Contact Info) Description 12/03/2022 Abstract [facility] [address] [place] [phone] Alvina Mccartney MD [address] [place], [place] [phone] Social History Tobacco Use Types Packs/Day Years Used Date Smoking Tobacco: Never Smokeless Tobacco: Never Alcohol Use Standard Drinks/Week Comments Never 0 (1 standard drink = 0.6 oz pur e alcohol) Comments Unknown Sex and Gender Information Value [...] Description 01/01/2025 9:45 AM EST Office Visit [facility] [address] [place] [address] Alvina Mccartney MD [address] [place] [address] documented as of this encounter Procedures Procedure Name Priority Date/Time Associated Diagnosis Comments MAMMOGRAPHY Routine 11/16/2021 COLONOSCOPY Routine 08/21/2019 documented in this encounter Results * Mammography (11/16/2021) Mammogram BIRADS 2 Anatomical Region Laterality Modality Other Historical Provider HEALTH MAINTENANCE Final Result * Colonoscopy (08/21/2019) Colonoscopy hyperplastic polyp Dr. Mendez us Historical Provider HEALTH MAINTENANCE Final Result documented in this encounter Visit Diagnoses Not on filedocumented in this encounter Care Teams Coper Hand Relationship Specialty Start Date End Date Alvina Mccartney MD [address] [place] [address] PCP - General Family Medicine 11/01/18 Riky Tanner [address] 3rd [place] [address] Cardiology 10/03/24 Mariella Mcdonnell [address] [phone] 10/11/24 [place] [address] Endocrinology 11/05/24 Shadia Morocho PA [address] [place] [address] Orthopaedic Surgery 11/07/24 Kendall Bates MD [address] [place] [address] Drive 3rd Floor [place] [address] General Surgery 11/28/24 documented as of this encounter
--- OUTSIDE RECORDS SUMMARY | 2024-12-01 11:12 | XMS_ITS | Encounter Summary ---
Author Organization [employer] Address [address] [facility] 7t [place] [address] Care Team Providers Care Turntable Operator Name Role Phone Alvina Mccartney MD Primary Care Provider [phone] Riky Tanner Unavailable Mariella Mcdonnell Unavailable [phone] Jina Vences MD Unavailable Shadia Morocho Unavailable Reason for Visit * Reason Onset Date Comments triage 03/17/2023 Encounter Details Date Type Department Care Team (Late st Contact Info) Description 03/17/2023 Telephone [facility]INE [address] [place], [place] [phone] Alvina Mccartney MD [address] [place], [place] [phone] triage Social History Tobacco Use Types Packs/Day Years [...] Orientation Straight 08/31/2022 10 :14 AM EDT COVID-19 Exposure Response Date Recorded In the last 10 days, have yo u been in contact with someone who was confirmed or suspected to have Coronavirus/COVID-19? No / Unsure 04/01/2023 11:18 AM EDT documented as of this encounter Miscellaneous Notes * Telephone Encounter - Fernanda Rodríguez RN - 03/17/2023 1:11 PM EDT Triage call with [place] [employer] In[employer] ID [id number] Pt reports dizziness since fall and seen in ED 02/10. Pt reports lightheadedness, tiredness, feelingweak, room does spin and tilt at times and Pt will sit down when that happens. Pt denies fever, nausea, vomiting. Pt has apt tomorrow with neurologist and fitness assistant has been seen already with another apt next month. Pt reports drinking 4 bottles of water /day. Pt reports doesn't feel like doing anything. Pt is advised to increase liquids some warm liquids like chicken broth and decaf tea. Pt is advised to rest as much as possible and to slowly get up or sit down watching for dizziness and Ptagrees. Pt does have family staying with Pt at this time. Apt with MELISSA Brown 04/01 @ 1130am. Insuranceis verified as active prior to booking. Protocol Used: Dizziness (Adult) Protocol-Based Disposition: See in Office or Video Visit within 2 Weeks Positive Triage Question: * Dizziness not present now, but is a chronic symptom (recurrent or ongoing AND lasting > 4 weeks) * All higher-acuity triage questions were negative Care Advice Discussed: * Reassurance and Education - Dizziness From Not Drinking Enough Liquids * Drink Fluids * Lie Down and Rest * Cool Off * Prevention * Reasons To Call Back - After 2 hours of rest and fluids And still feeling dizzy. - Passes out (faints). - You become worse. * Telephone Encounter - Beulah Hassanjia - 03/17/2023 12:00 PM EDT Symptom: Dizziness Outcome: Schedule an urgent appointment (within 4 hours) or talk to a nurse or provider soon Reason: Getting worse The caller accepted this outcome Please contact at [phone] B[place]an documented in this encounter Plan of Treatment Upcoming Encounters Date Type Department Care Team (Late st Contact Info) Description 01/01/2025 9:45 AM EST Office Visit [facility] [address] [place] [address] Alvina Mccartney MD [address] [place] [address] documented as of this encounter Visit Diagnoses Not on filedocumented in this encounter Care Teams Turntable Operator Relationship Specialty Start Date End Date Alvina Mccartney MD [address] [place] [address] PCP - General Family Medicine 11/01/18 Riky Tanner [address] [place] [address] 3rd [place] [address] Cardiology 10/03/24 Mariella Mcdonnell [address] [phone] 10/11/24 Jina Vences MD [address] [place] [address] Endocrinology 11/05/24 Shadia Morocho PA [address] [place] [address] Orthopaedic Surgery 11/07/24 documented as of this encounter
--- OUTSIDE RECORDS SUMMARY | 2024-12-01 11:13 | XMS_ITS | Encounter Summary ---
Author Organization [employer] Address [address] [facility] 7t [place] [address] Care Team Providers Care Business Computers Teacher Name Role Phone Alvina Mccartney MD Primary Care Provider [phone] Riky Tanner Unavailable Mariella Mcdonnell Unavailable Jina Vences MD Unavailable Shadia Morocho Unavailable Kendall Bates MD Unavailable [phone] Encounter Details Date Type Department Care Team (Late st Contact Info) Description 04/22/2023 Orders Only [facility] MED[facility]INE [address] [place], [place] [phone] Alvina Mccartney MD [address] [place], [place] [phone] Dizzy (Primary Dx) Social History Tobacco Use Types [...] 01/01/2025 9:45 AM EST Office Visit [facility] [address] [place] [address] Alvina Mccartney MD [address] [place] [address] documented as of this encounter Visit Diagnoses Diagnosis Dizzy- Primary Dizziness and giddiness Dietary counseling Dietary surveillance and counseling Exercise counseling Overweight Major depression single episode, in partial remission (CMS/HCC) Major depressive disorder, single episode, in partial or unspecified remission Adrenal nodule (CMS/HCC) Benign neoplasm of adrenal gland documented in this encounter Care Teams Business Computers Teacher Relationship Specialty Start Date End Date Alvina Mccartney MD [address] [place] [address] PCP - General Family Medicine 11/01/18 Riky Tanner [address] 3rd [place] [address] Cardiology 10/03/24 Mariella Mcdonnell [address] [phone] 10/11/24 Jina Vences MD [address] [place] [address] Endocrinology 11/05/24 Shadia Morocho PA [address] [place] [address] Orthopaedic Surgery 11/07/24 Kendall Bates MD [address] 3rd [place] [address] General Surgery 11/28/24 documented as of this encounter
--- OUTSIDE RECORDS SUMMARY | 2024-12-01 11:13 | XMS_ITS | Encounter Summary ---
Author Organization [employer] Address [address] [facility] 7t [place] [address] Care Team Providers Care Numerical Control Machine Tool Operator Name Role Phone Alvina Mccartney MD Primary Care Provider [phone] Riky Tanner Unavailable Mariella Mcdonnell Unavailable [phone] Jina Vences MD Unavailable Shadia Morocho Unavailable Encounter Details Date Type Department Care Team (Late st Contact Info) Description 11/11/2024 Orders Only [facility] External Provider, [facility] Chronic pain of left knee (Primary Dx) Social History Tobacco Use Types [...] 9:45 AM EST Office Visit [facility] [address] [place] [address] Alvina Mccartney MD [address] [place] [address] documented as of this encounter Procedures Procedure Name Priority Date/Time Associated Diagnosis Comments MR KNEE WO CONTRAST LEFT Routine 11/11/2024 7:52 PM EST documented in this encounter Results * MR Knee w/o Contrast Left (11/11/2024 7:52 PM EST) Anatomical Region Laterality Modality Magnetic Resonan ce 11/11/2024 7:52 PM EST Narrative 11/14/2024 8:36 AM EST ? [facility] ?[address] ?[place] [address] ? Magnetic Resonance Report ? Signed ? Patient: Lety Bates ?MR#: [id number] ?? [id number] ? : 1970 ?Acct:[id number] ? Age/Sex: 54 / F ?ADM Date: /11/25 ? Loc: HO.MRI ? Attending Dr: Ariel Morocho PA-C ? Ordering Physician: Ariel Morocho PA-C ?? Date of Service: 11/11/24 ?? Procedure(s): MR knee LT wo con ?? Accession Number(s): [id number] ? cc: Alvina Mccartney MD; Ariel Morocho [...] signed by Elder Esparza MD in OV> ?11/14/24 0833 ? DD/ 51 ? TD/TT: 11/11/242014 ? Communication Electronic Technician: ? Procedure Note Lesa, Image - 11/14/[address] [address] Magnetic Resonance Report Signed Patient: Luann Bates#: [id number] : 1970Acct:[id number] Age/Sex: 54 / FADM Date: 11/11/24 Loc: HO.MRI Attending Dr: Ariel Morocho PA-C Ordering Physician: Ariel Morocho PA-C Date of Service: 11/11/24 Procedure(s): MR knee LT wo con Accession Number(s): [id number] cc: Alvina Mccartney MD; Ariel Morocho PA-C [...] by: Elder Esparza MD 11/14/2024 08:33 AM [facility] Dictated By: Elder Esparza MD Signed By: <Electronically signed by Elder Esparza MD in OV> 11/14/24 0833 DD/ 51 TD/TT: 11/11/242014 Communication Electronic Technician: [facility] External Provider IMG MRI PROCEDURES Final Result documented in this encounter Visit Diagnoses Diagnosis Chronic pain of left knee- Primary Dietary counseling Dietary surveillance and counseling Exercise counseling Overweight Major depression single episode, in partial remission (CMS/HCC) Major depressive disorder, single episode, in partial or unspecified remission Adrenal nodule ([facility]/HCC) Benign neoplasm of adrenal gland documented in this encounter Additional Health Concerns Assessment Noted Time PHQ-9 Depression Total Score: 8 07/26/20 23 10:55 AM EDT documented as of this encounter Care Teams Numerical Control Machine Tool Operator Relationship Specialty Start Date End Date Alvina Mccartney MD [address] [place] [address] PCP - General Family Medicine 11/01/18 Riky Tanner [address]rd [place] [address] Cardiology 10/03/24 Mariella Mcdonnell [address] [phone] 10/11/24 Jina Vences MD [address] [place] [address] Endocrinology 11/05/24 Shadia Morocho PA [address] [place] [address] Orthopaedic Surgery 11/07/24 documented as of this encounter
== END 2024-12-01 11:16 | disposition home or self-care (01) ==
PROVIDERS: PCP Family Medicine; Visit Provider Student in an Organized Health Care Education/Training Program
DX: E27.8 Other specified disorders of adrenal gland (principal)
CPT/HCPCS: 99213

== ENCOUNTER → 2024-12-01 10:28 | Outpatient (BNVA) | payer OTHER, SELFPAY | PROVIDERS: PCP Family Medicine; Visit Provider Student in an Organized Health Care Education/Training Program | DX: E27.8 Other specified disorders of adrenal gland (principal) | CPT/HCPCS: 99212 ==

== ENCOUNTER 2024-12-06 10:41 | Outpatient (REF) | payer OTHER, SELFPAY ==
--- OUTSIDE RECORDS SUMMARY | 2024-12-06 11:47 | XMS_ITS | Encounter Summary ---
Author Organization [employer] Address [address] [facility] 7t [place] [address] Care Team Providers Care Gathering Machine Setter Name Role Phone Alvina Mccartney MD Primary Care Provider [phone] Riky Tanner Unavailable Mariella Mcdonnell Unavailable [phone] Jina Vences MD Unavailable Shadia Morocho Unavailable Kendall Bates MD Unavailable Encounter Details Date Type Department Care Team (Late st Contact Info) Description 12/01/2024 Refill [facility] [address] [place], [place] [phone] Alvina Mccartney MD [address] [place], [place] [phone] Pain Social History Tobacco Use Types Packs/Day [...] AM EST Office Visit [facility] [address] [place] [address] Alvina Mccartney MD [address] [place] [address] documented as of this encounter Visit Diagnoses [...] documented as of this encounter Care Teams Gathering Machine Setter Relationship Specialty Start Date End Date Alvina Mccartney MD [address] [place] [address] PCP - General Family Medicine 11/01/18 Riky Tanner [address] 3rd [place] [address] Cardiology 10/03/24 Mariella Mcdonnell [address] [address] 10/11/24 Jina Vences MD [address] [place] [address] Endocrinology 11/05/24 Shadia Morocho PA [address] [place] [address] Orthopaedic Surgery 11/07/24 Kendall Bates MD [address] 3rd [place] [address] General Surgery 11/28/24 documented as of this encounter
--- OUTSIDE RECORDS SUMMARY | 2024-12-06 11:47 | XMS_ITS | Encounter Summary ---
Author Organization [employer] Address [address] [facility] 7t [place] [address] Care Team Providers Care Engineering Mathematician Name Role Phone Alvina Mccartney MD Primary Care Provider [phone] Riky Tanner Unavailable Mariella Mcdonnell Unavailable [phone] Jina Vences MD Unavailable Shadia Morocho Unavailable [...] Description 01/01/2025 9:45 AM EST Office Visit [facility] 230 [place] [address] Alvina Mccartney MD [address] [place] [address] documented as of this encounter Procedures Procedure Name Priority Date/Time Associated Diagnosis Comments DEXAMETHASONE Routine 11/10/2024 8:10 AM EST CORTISOL RANDOM Routine 11/10/2024 8:10 AM EST ACTH, PLASMA Routine 11/10/2024 8:10 AM EST documented in this encounter Results * Dexamethasone (11/10/2024 8:10 AM EST) [facility] Signature Dexamethasone 260 ng/dL [facility] Comment:Reference Ranges for Dexamethasone:Baseline: Less than 20 ng/dL1 mg dexamethasone overnight: 180-550 ng/dL (8:00-10:00 AM)This test was developed and its analytical performancecharacteristics have been determined by [employer].It has not been cleared or approved by FDA. This assay hasbeen validated pursuant to the CLIA regulations and is usedfor clinical purposes.THIS TEST WAS PERFORMED AT:[employer]/[place] [id number] [place] [id number] COTTON MD,PHD,JENNIFER 11/10/2024 8:10 AM EST 11/10/2024 8:10 AM EST Generic External Data Provider LAB BLOOD ORDERAB LES Final Result Performing Organization Address [facility] Co de Phone Number [facility] [address] [place] [phone] * (ABNORMAL) ACTH, Plasma (11/10/2024 8:10 AM EST) ACTH, Plasma <5(A) 6 - 50 pg/mL [facility] Comment:Reference range appl ies only to specimens collectedbetween 7am-10am.THIS TEST WAS PERFORMED AT:[employer] [id number] [place] [address]ZWXPBJVFERMÍN CHEUNG MD,PHD 11/10/2024 8:10 AM EST 11/10/2024 8:10 AM EST Generic External Data Provider LAB BLOOD ORDERAB LES Final Result Performing Organization Address [facility] de Phone Number [facility] [address] [place] [phone] * Cortisol Random (11/10/2024 8:10 AM EST) Cortisol Random <1.0 ug/dL [facility] Comment:Reference Range*: Be fore 10 am 6.2-19.4 ug/dL After 5 pm 2.3-11.9 ug/dL*Please interpret above results accordingly.This test was performed using the [employer] chemiluminescentmethod. Values obtained from different assay methods cannotbe used interchangeably.Patients receiving fludrocortisone, prednisolone orprednisone may show artificially elevated cortisol valuesdue to cross-reactivity. 11/10/2024 8:10 AM EST 11/10/2024 8:10 AM EST Generic External Data Provider LAB BLOOD ORDERAB LES Final Result [facility] [address] [place] [phone] documented in this encounter Visit Diagnoses Not on filedocumented in this encounter Additional Health Concerns Assessment Noted Time PHQ-9 Depression Total Score: 8 07/26/20 23 10:55 AM EDT documented as of this encounter Care Teams Engineering Mathematician Relationship Specialty Start Date End Date Alvina Mccartney MD [address] [place] [address] PCP - General Family Medicine 11/01/18 Riky Tanner [address] 3rd [place] [address] Cardiology 10/03/24 Mariella Mcdonnell [address] [phone] 10/11/24 Jina Vences MD [address] [place] [address] Endocrinology 11/05/24 Shadia Morocho PA [address] [place] [address] Orthopaedic Surgery 11/07/24 documented as of this encounter
--- OUTSIDE RECORDS SUMMARY | 2024-12-06 11:47 | XMS_ITS | Clinical Summary ---
Author Organization [employer] Address [address] [place] [address] Care Team Providers Care Shop Cooper Name Role Phone Alvina Mccartney MD Primary Care Provider [phone] Riky Tanner Unavailable Mariella Mcdonnell Unavailable Jina Vences MD Unavailable Shadia Morocho Unavailable Kendall Bates MD Unavailable Allergies No known active allergies Medications amLODIPine [...] mouth Once per day. 30 tablet 07/05/20 025 Active lidocaine (LMX 4) 4 % creamIndication [...] Active gabapentin (Neurontin) 300 MG capsuleIndicati ons:Pain Take 1 capsule (300 mg) by mouth 3 times daily. 90 capsule 12/03/19 25 Active primidone (Mysoline) 50 MG tablet [...] MORNING, EVENING, AND BEDTIME 90 capsule 11/02/19 025 Discontinued(Re order (will not trigger notification to Pharmacy)) cetirizine (ZyrTEC) 2.5 MG chewable split tablet 10 mg. 05/26/20 025 Discontinued(Me d list cleanup (will not trigger notification to Pharmacy)) DULoxetine (Cymbalta) [address] capsule 30 mg. 10/02/20 025 Discontinued(Me d list cleanup (will not trigger notification to Pharmacy)) Active Problems Problem Noted Date Diagnosed Date Chronic pain of left knee 11/07/2024 Overview (11/14/2024): -seen by Ariel Morocho PA-C of [facility] 11/07/23 -MR/MR knee LT wo [...] describing symptoms of lightheadedness when turning head [id number] which sounds more like vertigo. No clear [...] hydrochlorothiazide discontinued 09/2024 Adrenal nodule 09/15/2023 Overview (12/04/2024): Incidental noted on ER CT CT abdomen [...] units in the non- IV contrast exam. Stable from size compared to CT scan in 2020 when this measured 9 mm, with precontrast 31 Hounsfield units and postcontrast 85 Hounsfield units. -seen by endocrinology Dr. 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 Given stability in size this is reassuring of most likely a benign nodule. However Hounsfield units are on the higher side hence I would plan to repeat a CT focused on adrenal gland with the adrenal gland washout in 08/2025. -CT/CT abdomen pelvis wo IV con 11/13/24 IMPRESSION: Stable 10 mm left adrenal nodule which likely represents an adenoma. -Labs from 11/06/2024 showed renin of 0.85, aldosterone of 4, DHEA-S of 74, cortisol baseline 11.1 acth 16, normal plasma metanephrine, normetanephrine levels. Dexamethasone suppression test showed a dexamethasone level of 260 with cortisol of less than 1. -plan to repeat CT with the adrenal washout in 08/2025 -follow up in August [address] scan Assessment & Plan (10/09/2024 10:08 AM EST): [...] (10/20/2022 9:42 PM EST): -Previously established with [facility], last available consult note from 2018. -Referral to re-establish care with [facility] Essential hypertension 12/12/2018 Overview (10/03/2024): Followed by Dr. Riky Tanner MD at [facility]. Note from 09/2024 reviewed. 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 Obstructive sleep apnea syndrome 12/12/2018 Overview (10/11/2024): Followed by [facility]. Sleep study 10/07/18 reveals severe SILVER. -Currently using CPAP nightly She started 11/05/2018 -seen by CIARA Lepe on 10/09/24 continue CPAP 14 cmH2O. [facility] Assessment & Plan (07/21/2023 1:56 PM EDT): Followed by [facility]. Sleep study 10/07/18 reveals severe SILVER. [...] and therapist. No SI/HI. Reports going to [facility], where she sees her specialists. Assessment [...] and therapist. No SI/HI. Reports going to [facility], where she sees her specialists. Resolved [...] Encounters Date Type Department Care Team Description 12/01/2024 Refill [facility] [address] [place] [address] Alvina Mccartney MD Pain 12/01/2024 Refill [facility] [address] [place] [address] Alvina Mccartney MD Pain 11/11/2024 Orders Only [facility] External Provider, [facility] Chronic pain of left knee (Primary Dx) 11/10/2024 Orders Only GENERIC EXTERNAL DATA DEPARTMENT Provider, Generic External Data 11/09/2024 Orders Only [facility] External Provider, [facility] Adrenal nodule (CMS/HCC) (Primary Dx) 11/09/2024 Telephone [facility] [address] [facility] [place] [address] Berto Schroeder [place] December recall 11/06/2024 Orders Only GENERIC EXTERNAL DATA DEPARTMENT Provider, Generic External Data 11/02/2024 Refill [facility] [address] [facility] [place] [address] Alvina Mccartney MD Pain 10/16/2024 Telephone [facility] MEDICINE [address] [place] [address] Alvina Mccartney MD 10/09/2024 Telephone [facility]INE [address] [place] [address] Harleen Paredes, apartment house manager Referral 10/06/2024 Telephone [facility]INE [address] [place] [address] Alvina Mccartney MD Record Request 10/06/2024 Telephone [facility] MEDICINE [address] [place] [phone] Alvina Mccartney MD 10/06/2024 Orders Only [facility] [place] [address] Alvina Mccartney MD 09/26/2024 Refill [facility] MEDICINE [address] [place] [address] Alvina Mccartney MD Pain 09/25/2024 Telephone [facility] MEDICINE [address] [place] [address] Alvina Mccartney MD 09/25/2024 Telephone [facility] MEDICINE [address] [place] [address] Alvina Mccartney MD 09/06/2024 Telephone [facility]INE [address] [place] [address], [place] [address] Alvina Mccartney MD from Last 3 Months Immunizations Name Administration [...] Description 01/01/2025 9:45 AM EST Office Visit [facility] [address] [place], [place] [phone] Alvina Mccartney MD [address] [place] [address] Health Maintenance Due Date Last Done Comments [...] EST Narrative 11/14/2024 8:36 AM EST ? [facility] ?[address] ?[place] [address] ? Magnetic Resonance Report ? Signed ? Patient: Paulo,Lety ?MR#: [id number] ?? 1571 ? : 1970 ?Acct:[id number] ? Age/Sex: 54 / F ?ADM Date: 11/11/24 ? Loc: HO.MRI ? Attending Dr: Ariel Morocho PA-C ? Ordering Physician: Ariel Morocho PA-C ?? Date of Service: 11/11/24 ?? Procedure(s): MR knee LT wo con ?? Accession Number(s): [id number] ? cc: Alvina Mcacrtney MD; Ariel Morocho PA-C ? EXAMINATION: MRI [...] ? DD/ 51 ? TD/TT: 11/11/242014 ? Renal Technician: ? Procedure Note Donmatthew, Image - 11/14/2024 [place] [address] Magnetic Resonance Report Signed Patient: Leidy BatesOKR#: [id number] 1571 : 1970Acct:[id number] Age/Sex: 54 / FADM Date: 11/11/24 Loc: HO.MRI Attending Dr: Ariel Morocho PA-C Ordering Physician: Ariel Morocho PA-C Date of Service: 11/11/24 Procedure(s): MR knee LT wo con Accession Number(s): [id number] cc: Alvina Mccartney MD; Ariel Morocho PA-C [...] in OV> 11/14/[address]32 DD/ 51 TD/TT: 11/11/242014 Renal Technician: [facility] External Provider IMG MRI PROCEDURES Final Result * Dexamethasone (11/10/2024 8:10 AM EST) Dexamethasone 260 ng/dL [facility] Comment:Reference Ranges for Dexamethasone:Baseline: Less than 20 ng/dL1 mg dexamethasone overnight: 180-550 ng/dL (8:00-10:00 AM)This test was developed and its analytical performancecharacteristics have been determined by [employer].It has not been cleared or approved by FDA. This assay hasbeen validated pursuant to the CLIA regulations and is usedfor clinical purposes.THIS TEST WAS PERFORMED AT:Editorially/[employer] [id number] [place] [id number] COTTON MD,PHD,JENNIFER 11/10/2024 8:10 AM EST 11/10/2024 8:10 AM EST Generic External Data Provider LAB BLOOD ORDERAB LES Final Result Performing Organization Address City/[facility]/ZIP Co de Phone Number [facility] [address] [place] [phone] * Cortisol Random (11/10/2024 8:10 AM EST) Only the most recent of2 resultswithin the time period is included. Cortisol Random <1.0 ug/dL [facility] Comment:Reference Range*: Be fore 10 am 6.2-19.4 ug/dL After 5 pm 2.3-11.9 ug/dL*Please interpret above results accordingly.This test was performed using the [employer] chemiluminescentmethod. Values obtained from different assay methods cannotbe used interchangeably.Patients receiving fludrocortisone, prednisolone orprednisone may show artificially elevated cortisol valuesdue to cross-reactivity. 11/10/2024 8:10 AM EST 11/10/2024 8:10 AM EST us Generic External Data Provider LAB BLOOD ORDERAB LES Final Result Performing Organization Address [facility] Co de Phone Number [facility] [address] [place] [phone] * (ABNORMAL) ACTH, Plasma (11/10/2024 8:10 AM EST) Only the most recent of2 resultswithin the time period is included. ACTH, Plasma <5(A) 6 - 50 pg/mL [facility] Comment:Reference range appl ies only to specimens collectedbetween 7am-10am.THIS TEST WAS PERFORMED AT:Editorially/[facility] [id number] [place] [address]MVUSCTJFERMÍN CHEUNG MD,PHD 11/10/2024 8:10 AM EST 11/10/2024 8:10 AM EST us Generic External Data Provider LAB BLOOD ORDERAB LES Final Result Performing Organization Address [facility]/ZIP Co de Phone Number [facility] [address] [place] [phone] * CT Abdomen Pelvis w/o Contrast (11/09/2024 4:44 PM EST) Anatomical Region Laterality Modality Body, Pelvis, Abdomen Computed T omography 11/09/2024 4:44 PM EST Narrative 11/13/2024 1:20 PM EST ? [facility] ?[address] ?[place] [address] ? CT Scan Report ? Signed ? Patient: Paulo,Lety ?MR#: [id number] ?? 1571 ? : 1970 ?Acct:[id number] ? Age/Sex: 54 / F ?ADM Date: 11/09/24 ? Loc: HO.CT ? Attending Dr: Kendall Bates MD ? Ordering Physician: Kendall Bates MD ?? Date of Service: 11/09/24 ?? Procedure(s): CT abdomen pelvis wo IV con ?? Accession Number(s): [id number] ? cc: Alvina Mccartney MD; Kendall Bates MD ? Report Number: ?? [id number]: Total DLP = ??506.00 mGy-cm ?? EXAMINATION: [...] DD/ 1644 ? TD/TT: 11/09/24 1651 ? Renal Technician: ? Procedure Note Donotuseinterpreter, Image - 11/13/[address] [address] [address] Scan Report Signed Patient: Leidy BatesnMR#: [id number] 1571 : 1970Acct:[id number] Age/Sex: 54 / FADM Date: 11/09/24 Loc: HO.CT Attending Dr: Kendall Bates MD Ordering Physician: Kendall Bates MD Date of Service: 11/09/24 Procedure(s): CT abdomen pelvis wo IV con Accession Number(s): [id number] cc: Alvina Mccartney MD; Kendall Bates MD Report Number: [id number]: Total DLP = 506.00 mGy-cm EXAMINATION: CT [...] 11/13/24 1317 DD/ 1644 TD/TT: 11/09/24 1651 Renal Technician: [facility] External Provider IMG CT PROCEDURES Final Result * Metanephrines, Fractionated, Free, LC/MS/MS, Plasma (11/06/2024 7:50 AM EST) Metanephrine, Free 49 <=57 pg/mL [facility] Comment:This test was develo ped and its analytical performancecharacteristics have been determined by [employer] [facility], [place]. It hasnot been cleared or approved by the U.S. Food and DrugAdministration. This assay has been validated pursuantto the CLIA regulations and is used for clinicalpurposes. Normetanephrine, Free 81 <=148 pg/mL [facility] Comment:This test was develo ped and its analytical performancecharacteristics have been determined by [employer] [place]. It hasnot been cleared or approved by the U.S. Food and DrugAdministration. This assay has been validated pursuantto the CLIA regulations and is used for clinicalpurposes. Total, Free (MN+NMN) 130 <=205 pg/mL [facility] Comment: For additional information, please refer tohttp://education.[employer]/faq/[employer](This link is being provided for informational/educatioinformational/educational purposes [...] its analytical performancecharacteristics have been determined by [employer] [place], [place]. It hasnot been cleared or approved by the U.S. Food and DrugAdministration. This assay has been validated pursuantto the CLIA regulations and is used for clinicalpurposes.THIS TEST WAS PERFORMED AT:Editorially/[facility] [place], [place] ??[phone] CHEUNG MD,PHD 11/06/2024 7:50 AM EST 11/06/2024 7:56 AM EST us Generic External Data Provider LAB BLOOD ORDERAB LES Final Result [facility] [address] [place] [phone] * Aldosterone, LC/MS/MS (11/06/2024 7:50 AM EST) [facility] Aldosterone, LC/MS/MS 4 see note ng/dL [facility] Comment:Unable to flag abnor mal result(s), please refer to reference range(s) below:Adult Reference Ranges for Aldosterone, LC/MS/MS: Upright 8:00 - 10:00 am < or = 28 ng/dL Upright 4:00 - 6:00 pm < or = 21 ng/dL Supine 8:00 - 10:00 am 3 - 16 ng/dLThis test was developed and its analytical performancecharacteristics have been determined by [employer]. It hasnot been cleared or approved by the U.S. Food and DrugAdministration. This assay has been validated pursuantto the CLIA regulations and is used for clinicalpurposes.THIS TEST WAS PERFORMED AT:[employer] [id number] [place] [id number] CHEUNG MD,PHD 11/06/2024 7:50 AM EST 11/06/2024 7:56 AM EST us Generic External Data Provider LAB BLOOD ORDERAB LES Final Result [facility] [address] [place] [phone] * Plasma Renin Activity, LC/MS/MS (11/06/2024 7:50 AM EST) [facility] Plasma Renin Activity, LC/MS/MS 0.85 0.25 - 5.82 ng/mL/h [facility] Comment:This test was develo ped and its analytical performancecharacteristics have been determined by [employer] [place], [place]. It hasnot been cleared or approved by the U.S. Food and DrugAdministration. This assay has been validated pursuantto the CLIA regulations and is used for clinicalpurposes.THIS TEST WAS PERFORMED AT:[employer] [id number] [place] [address]MAPGJMCFERMÍN CHEUNG MD,PHD 11/06/2024 7:50 AM EST 11/06/2024 7:56 AM EST Generic External Data Provider LAB BLOOD ORDERAB LES Final Result Performing Organization Address [facility]/ZIP Co de Phone Number [facility] [address] [place] [phone] * DHEA Sulfate (11/06/2024 7:50 AM EST) DHEA Sulfate 74 5 - 167 mcg/dL [facility] Comment:THIS TEST WAS PERFOR MED AT:[employer] [place] [id number] CALIX MD 11/06/2024 7:50 AM EST 11/06/2024 7:56 AM EST Generic External Data Provider LAB BLOOD ORDERAB LES Final Result Performing Organization Address [facility]/[employer] de Phone Number [facility] [address] [place] [phone] * (ABNORMAL) Basic Metabolic Panel (11/06/2024 7:50 AM EST) Sodium 142 135 - 145 mmol/L [facility] Potassium 4.0 3.3 - 5.1 mmol/L [facility] Chloride 109(H) 96 - 108 mmol/L [facility] Carbon Dioxide 25 22 - 29 mmol/L [facility] Anion Gap 12 12 - 20 [facility] Urea Nitrogen (BUN) 23(H) 9 - 16 mg/dL [facility] Creatinine, Serum 0.75 0.5 - 1.4 mg/dL [facility] Estimated Glomerular Filt Rate >60 [facility] Comment:Chronic Kidney Disea se: Estimated GFR < 60 mL/min/1.84h2Vateoe Kidney Disease: Estimated GFR < 15 mL/min/1.73m2 Glucose 75 60 - 115 mg/dL [facility] Calcium 9.8 8.4 - 10.2 mg/dL [facility] 11/06/2024 7:50 AM EST 11/06/2024 7:56 AM EST us Generic External Data Provider LAB BLOOD ORDERAB LES Final Result Performing Organization Address [facility] Co de Phone Number [facility] [address] [place] [phone] * (ABNORMAL) Lipid Panel, Standard (07/08/2024 9:02 AM EDT) Triglycerides 101 <150 mg/dL [facility] Comment:Desirable Triglyceri de: less than 150 mg/dLBorderline High Triglyceride 150-199 mg/dLHigh Triglyceride: 200-499 mg/dLVery High Triglyceride: greater than or equal to 5OO mg/dL Cholesterol 184 <200 mg/dL [facility] Comment:Desirable Cholestero l: less than 200 mg/dLBorderline High Cholesterol: 200-239 mg/dLHigh Cholesterol: greater than 239 mg/dL LDL Cholesterol Calculated 128(H) <100 mg/dL [facility] Comment:Desirable LDL: less than 100 mg/dLNear Optimal/Above Optimal LDL: 110- 129 mg/dLBorderline High LDL: 130-159 mg/dLHigh LDL: 160-189 mg/dLVery High LDL: greater than or equal to 190 mg/dL HDL Cholesterol 36(L) >40 mg/dL [facility] Comment:Desirable HDL: great er than 40 mg/dL Note: This HDL assay may give artificially low results in patients with liver disease. Blood Venous blood specimen / Unknown 07/08/2024 9:02 AM EDT 07/08/2024 9:02 AM EDT Alvina Mccartney MD LAB BLOOD ORDERABLES Final Result Performing Organization Address [facility]/ZIP Co de Phone Number [facility] [address] [place] [phone] * POCT HGB A1C (07/05/2024 10:53 AM EDT) Pathologist [facility] Hemoglobin A1C 5.9 4.0 - 6.0 % QC Media Lot # [id number] Lot# Expiration Date ,000,191 Blood 07/05/2024 10:5 3 AM EDT Alvina Mccartney MD POINT OF CARE TEST ENTER/E DIT ORDERABLES Final Result * Hm Colonoscopy (04/04/2024) Pathologist [facility] Colonoscopy Normal Normal 04/04/2024 Historical Provider HEALTH MAINTENANCE Final Result * BI Mammogram Screening Tomosynthesis Bilateral (12/01/2023 2:40 PM EST) Anatomical Region Laterality Modality Breast Bilateral Mammography 12/01/2023 2:40 PM EST Narrative 12/23/2023 9:55 PM EST ? [facility] ? [address] ?[place] [address] ? Mammography Report ? Signed ? Patient: Lety Bates ?MR#: [id number] ?? 1571 ? : 1970 ?Acct:[id number] ? Age/Sex: 53 / F ?ADM Date: /31/24 ? Loc: HO.MAMMO ? Attending Dr: Alvina Mccartney MD ? Ordering Physician: Alvina Mccartney MD ?Results: 2B ?? enign Findings ? Date of Service: 12/01/23 ?Follow Up: 1 Year From Orig ?? inal Mammogram ? Procedure(s): MM tomosynthesis screening BI ?? Accession Number(s): [id number] ? cc: Alvina Mccartney MD ? EXAMINATION: ?? MM SCREENING DIGITAL BREAST TOMOSYNTHESIS, BILATERAL ? CLINICAL INFORMATION: ? Screening. Asymptomatic. ? COMPARISON: ?? Mammography: This study is compared with prior exams dating back to ?? 2018. ? TECHNIQUE: ?? Digital breast tomosynthesis is [...] by Dafne Mcmahan MD in OV> ? 12/23/232151 ? DD/ ? TD/TT: ? Renal Technician: ? Procedure Note Lesa, Image - 12/23/2023 [place] [facility] [address] [place], [place] [address] Mammography Report Signed Patient: Luann Bates#: [id number] 1571 : 1970Acct:[id number] Age/Sex: 53 / FADM Date: 12/01/23 Loc: HO.MAMMO Attending Dr: Alvina Mccartney MD Ordering Physician: Alvina Mccartney MDResults: 2B enign Findings Date of Service: 12/01/23Follow Up: 1 Year From Orig inal Mammogram Procedure(s): MM tomosynthesis screening BI Accession Number(s): [id number] cc: Alvina Mccartney MD EXAMINATION: MM SCREENING [...] signed by Dafne Mcmahan MD in OV> 12/23/232151 DD/ 1440 TD/TT: Renal Technician: us Alvina Mccartney MD IMG BI PROCEDURES Edited R esult - Final * Hepatitis C Ab (07/29/2023 9:23 AM EDT) Hepatitis C Antibody Nonreactive Nonreactive [facility] Comment:Antibodies to HCV no t detected; does not exclude early acuteHCV infection. Blood 07/29/2023 9:23 AM EDT 07/29/2023 11:00 AM EDT Alvina Mccartney MD LAB BLOOD ORDERABLES Final Result Performing Organization Address [facility] Co de Phone Number [facility] [address] [place] [phone] * HPV mRNA E6/E7 w/Reflex to HPV Genotypes 16, 18/45 (07/26/2023 10:57 AM EDT) HPV nRNA E6/E7 Not Detected Not Detected [facility] Comment:Methodology: Transcr iption-Mediated AmplificationThis assay detects E6/E7 viral messenger RNA (mRNA) from 14high-risk HPV types (16,18,31,33,35,39,45,51,52,56,58,59,66,68).Cervical sources are required for HPV testing.If a vaginal source from a patient who has had atotal hysterectomy with removal of cervix wassubmitted, please contact the testing laboratoryfor alternative testing options.For additional information, please refer tohttp://education.[employer]/faq/JZL424r1(This link if provided for information/educational purposes only.)THIS TEST WAS PERFORMED AT:[id number] [place] [id number] CALIX MD HPV mRNA E6/E7 TNP [facility] HPV 16 RNA [facility] HPV 18/45 RNA [facility] 07/26/2023 10:5 7 AM EDT 07/27/2023 9:00 AM EDT Alvina Mccartney MD LAB CYTOLOGY ORDERABLES Fi nal Result Performing Organization Address [facility]/ZIP Co de Phone Number [facility] [address] [place] [phone] * Pap Smear (07/26/2023 10:57 AM EDT) 07/26/2023 10:5 7 AM EDT 07/27/2023 9:00 AM EDT [facility] - 08/02/2023 1:35 PM EDT ----- ------- Name: Lety Bates ? Age/Sex: 53/F ? : 1970 Unit#: [id number] ?? Attend Dr: Alvina Mccartney MD ?Re07/26/23 ?Status: DEP REF ? Location: HO.HHCLNP ? Disch: ? ----- ------- SPEC : [id number] ?RECD: 07/27/23-899 ? STATUS: ??SOUT ? REQ NUM: [id number] ? AMANDA: 07/26/23-1056 ? SUBM DR: Alvina Mccartney MD ? ENTERED: ??07/27/23 ?SP TYPE: Pap Smr ?OTHR : ? ORDERED: ??Pap Smear ? Interpretation ?? Satisfactory for evaluation. ?? Negative for intraepithelial lesion or malignancy. ?HPV mRNA E6/E7: ?NOT DETECTED ? This assay detects E6/E7 viral messenger RNA (mRNA) from 14 high-risk HPV types (16, 18, ?? 31, 33, 35, 39, 45, 51, 52, 56, 58, 59, 66, 68) ?? HPV testing performed by [employer], [place], [place]. ??See reference laboratory ?? pion of the EMR for entire report. ?Clinical Information LMP: Unknown date Previous PAP test: Unknown date/findings ? Material Received ?? ThinPrep-Vaginal/Cervical ----- ------- Signed (signature on file) JUSTIN Arambula (ASCP) 08/02/23 1335 ? ----- ------- ? END OF REPORT ? 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 Advance Directives and Living Will 07/07/2024 1:01 PM Health Care Proxy Care Teams Shop Cooper Relationship Specialty Start Date End Date Alvina Mccartney MD [address] [place] [address] PCP - General Family Medicine 11/01/18 Riky Tanner [address] [place] [address] 3rd [place] [address] Cardiology 10/03/24 Mariella Mcdonnell [address] [address] 10/11/24 Jina Vences MD [address] [place] [address] Endocrinology 11/05/24 Shadia Morocho PA [address] [place] [address] Orthopaedic Surgery 11/07/24 Kendall Bates MD [address] [facility] 3rd [place] [address] General Surgery 11/28/24
--- OUTSIDE RECORDS SUMMARY | 2024-12-06 11:47 | XMS_ITS | Encounter Summary ---
Author Organization [employer] [facility] Address [address] [facility] 7t [place] [address] Care Team Providers Care Flatbed Company Driver Name Role Phone Alvina Mccartney MD Primary Care Provider [phone]- [phone] Riky Tanner Unavailable Mariella Mcdonnell Unavailable [phone] Jina Vences MD Unavailable Shadia Morocho Unavailable Kendall Bates MD Unavailable [phone] Encounter Details Date Type Department Care Team (Late st Contact Info) Description 12/03/2022 Abstract [facility] [address] [place] [address] [phone] Alvina Mccartney MD [address] [place], [place] [phone] Social History Tobacco Use Types Packs/Day Years [...] EST Office Visit [facility] [address] [place] [address] Alvina Mccartney MD [address] [place] [address] documented as of this encounter Procedures Procedure [...] on filedocumented in this encounter Care Teams Flatbed Company Driver Relationship Specialty Start Date End Date Alvina Mccartney MD [address] [place] [address] PCP - General Family Medicine 11/01/18 Riky Tanner [address] 3rd [place] [address] Cardiology 10/03/24 Mariella Mcdonnell [address] [address] 10/11/24 J[place] [address] Endocrinology 11/05/24 Shadia Morocho PA [address] [place] [address] Orthopaedic Surgery 11/07/24 Kendall Bates MD [address] [place] [address] Drive 3rd Floor NEREIDA [place]ales [address] General Surgery 11/28/24 documented as of this encounter
--- OUTSIDE RECORDS SUMMARY | 2024-12-06 11:47 | XMS_ITS | Encounter Summary ---
Author Organization [employer] Address 75 [facility] 7t [place] [address] Care Team Providers Care Instrument Operator Name Role Phone Alvina Mccartney MD Primary Care Provider [phone]- [phone] Riky Tanner Unavailable Mariella Mcdonnell Unavailable Jina Vences MD Unavailable Shadia Morocho Unavailable Kendall Bates MD Unavailable Encounter Details Date Type Department Care Team (Late st Contact Info) Description 10/16/2022 Orders Only [facility] [address] [place] [address] Anel Espinoza, RN Social History Tobacco [...] Description 01/01/2025 9:45 AM EST Office Visit [facility] [address] [place] [address] [phone] Alvina Mccartney MD [address] [place], [place] [phone] documented as of this encounter Visit Diagnoses Not on filedocumented in this encounter Care Teams Instrument Operator Relationship Specialty Start Date End Date Alvina Mccartney MD 230 [place] [address] PCP - General Family Medicine 11/01/18 Riky Tanner 11 [address] [facility] 3rd [place] [address] Cardiology 10/03/24 Mariella Mcdonnlel [address] [address] 10/11/24 Jina Vences MD [address] [place] [address] Endocrinology 11/05/24 Shadia Morocho PA [address] [place] [address] Orthopaedic Surgery 11/07/24 Kendall Bates MD [address] [address] General Surgery 11/28/24 documented as of this encounter
--- OUTSIDE RECORDS SUMMARY | 2024-12-06 11:47 | XMS_ITS | Encounter Summary ---
Author Organization [employer] Address 75 [facility] 7t [place] [address] Care Team Providers Care Truck Service Manager Name Role Phone Alvina Mccartney MD Primary Care Provider [phone]- [phone] Riky Tanner Unavailable Mariella Mcdonnell Unavailable [phone] Jina Vences MD Unavailable Shadia Morocho Unavailable Kendall Bates MD Unavailable [phone] Reason for Visit * Reason Comments Med Refill Encounter Details Date Type Department Care Team (Late st Contact Info) Description 12/01/2024 Refill [facility] 230 [place], [place] [phone] Alvina Mccartney MD [address] [place], [place] [phone] Pain Social History Tobacco Use Types Packs/Day [...] Description 01/01/2025 9:45 AM EST Office Visit [facility] [address] [place] [address] Alvina Mccartney MD [address] [place] [address] documented as of this encounter Visit Diagnoses [...] documented as of this encounter Care Teams Truck Service Manager Relationship Specialty Start Date End Date Alvina Mccartney MD [address] [place] [address] PCP - General Family Medicine 11/01/18 Riky Tanner [address] [place] [address] 3rd [place] [address] Cardiology 10/03/24 Mariella Mcdonnell 36[address] [facility] [address] [place] [address] 10/11/24 Jina Vences MD [address] [place] [address] Endocrinology 11/05/24 Shadia Morocho PA [address] [place] [address] Orthopaedic Surgery 11/07/24 Kendall Bates MD [address] 3rd [place] [address] General Surgery 11/28/24 documented as of this encounter
--- OUTSIDE RECORDS SUMMARY | 2024-12-06 11:47 | XMS_ITS | Encounter Summary ---
Author Organization [facility] Address 75 [facility] 7t [place] [address] Care Team Providers Care Associate Attorney Name Role Phone Alvina Mccartney MD Primary Care Provider [phone] Riky Tanner Unavailable Mariella Mcdonnell Unavailable [phone] Jina Vences MD Unavailable Shadia Morocho Unavailable Kendall Bates MD Unavailable [phone] Reason for Visit * Reason Comments Med Refill Encounter Details Date Type Department Care Team (Late st Contact Info) Description 06/05/2024 Refill [facility] [address] [place], [place] [phone] Alvina Mccartney MD [address] [place], [place] [phone] Pain Social History Tobacco Use Types Packs/Day [...] Description 01/01/2025 9:45 AM EST Office Visit [facility] [address] [place] [address] Alvina Mccartney MD [address] [place] [address] documented as of this encounter Visit Diagnoses [...] documented as of this encounter Care Teams Associate Attorney Relationship Specialty Start Date End Date Alvina Mccartney MD [address] [place] [address] PCP - General Family Medicine 11/01/18 Riky Tanner [address] [place] [address] 3rd [place] [address] Cardiology 10/03/24 Mariella Mcdonnell 3640 Main [facility] [address] [place] [address] 10/11/24 Jina Vences MD [address] [place] [address] Endocrinology 11/05/24 Shadia Morocho PA [address] [place] [address] Orthopaedic Surgery 11/07/24 Kendall Bates MD [address] 3rd [place] [address] General Surgery 11/28/24 documented as of this encounter
--- OUTSIDE RECORDS SUMMARY | 2024-12-06 11:47 | XMS_ITS | Encounter Summary ---
Author Organization [employer] Address 75 [facility] 7t [place] [address] Care Team Providers Care Campus President Name Role Phone Alvina Mccartney MD Primary Care Provider [phone]- [phone] Riky Tanner Unavailable Mariella Mcdonnell Unavailable [phone] Jina Vences MD Unavailable Shadia Morocho Unavailable Reason for Visit * Reason Onset Date Comments December recall 11/09/2024 Encounter Details Date Type Department Care Team (Late st Contact Info) Description 11/09/2024 Telephone [facility] [address] [place], [place] [phone] Berto Schroeder [place] December recall Social History [...] Description 01/01/2025 9:45 AM EST Office Visit [facility] [address] [place] [address] Alvina Mccartney MD [address] [place] [address] documented as of this encounter Visit Diagnoses Not on filedocumented in this encounter Additional Health Concerns Assessment Noted Time PHQ-9 Depression Total Score: 8 07/26/20 23 10:55 AM EDT documented as of this encounter Care Teams Campus President Relationship Specialty Start Date End Date Alvina Mccartney MD [address] [place] [address] PCP - General Family Medicine 11/01/18 Riky Tanner [address] 3rd [place] [address] Cardiology 10/03/24 Mariella Mcdonnell [address] [address] 10/11/24 Jina Vences MD [address] [place] [address] Endocrinology 11/05/24 Shadia Morocho PA [address] [place] [address] Orthopaedic Surgery 11/07/24 documented as of this encounter
--- OUTSIDE RECORDS SUMMARY | 2024-12-06 11:47 | XMS_ITS | Encounter Summary ---
Author Organization [employer] Address 75 [facility] 7t [place] [address] Care Team Providers Care Conservation Policy Analyst Name Role Phone Alvina Mccartney MD Primary Care Provider [phone] Riky Tanner Unavailable Mariella Mcdonnell Unavailable [phone] Jina Vences MD Unavailable Shadia Morocho Unavailable Reason for Visit * Reason Onset Date Comments triage 03/17/2023 Encounter Details Date Type Department Care Team (Late st Contact Info) Description 03/17/2023 Telephone [facility] [address] [place], [place] [phone] Alvina Mccartney MD [address] [place], [place] [phone] triage Social History Tobacco Use Types Packs/Day [...] 03/17/2023 1:11 PM EDT Triage call with [place] [facility] [place] [id number] Pt reports dizziness since fall and seen in ED 02/10. Pt reports lightheadedness, tiredness, feelingweak, room does spin and tilt at times and Pt will sit down when that happens. Pt denies fever, nausea, vomiting. Pt has apt tomorrow with neurologist and office receptionist has been seen already with another apt [...] caller accepted this outcome Please contact at [phone] Swedish documented in this encounter Plan of Treatment Upcoming Encounters Date Type Department Care Team (Late st Contact Info) Description 01/01/2025 9:45 AM EST Office Visit [facility] [address] [place] [address] Alvina Mccartney MD [address] [place] [address] documented as of this encounter Visit Diagnoses Not on filedocumented in this encounter Care Teams Conservation Policy Analyst Relationship Specialty Start Date End Date Alvina Mccartney MD [address] [place] [address] PCP - General Family Medicine 11/01/18 Riky Tanner [address] [place] [address] 3rd [place] [address] Cardiology 10/03/24 Mariella Mcdonnell [address] [address] 10/11/24 Jina Vences MD [address] [place] [address] Endocrinology 11/05/24 Shadia Morocho PA [address] [facility] [address] [place] [address] Orthopaedic Surgery 11/07/24 documented as of this encounter
--- OUTSIDE RECORDS SUMMARY | 2024-12-06 11:47 | XMS_ITS | Encounter Summary ---
Author Organization [employer] Address 75 [facility] 7t [place] [address] Care Team Providers Care Crane Rigger Name Role Phone Alvina Mccartney MD Primary Care Provider [phone] Riky Tanner Unavailable Mariella Mcdonnell Unavailable [phone] Jina Vences MD Unavailable Encounter Details Date [...] 9:45 AM EST Office Visit [facility] 230 [place], [place] [phone] Alvina Mccartney MD 230 [place], [place] [phone] documented as of this encounter Procedures Procedure [...] Activity, LC/MS/MS 0.85 0.25 - 5.82 ng/mL/h [facility] Comment:This test was develo ped and its analytical performancecharacteristics have been determined by [employer] [place], [place]. It hasnot been cleared or approved by the U.S. Food and DrugAdministration. This assay has been validated pursuantto the CLIA regulations and is used for clinicalpurposes.THIS TEST WAS PERFORMED AT:[employer] [id number] [place] [address]PUVCZDTFERMÍN CHEUNG MD,PHD 11/06/2024 7:50 AM EST 11/06/2024 7:56 AM EST us Generic External Data Provider LAB BLOOD ORDERAB LES Final Result [facility] [address] [place] [phone] * Metanephrines, Fractionated, Free, LC/MS/MS, Plasma (11/06/2024 7:50 AM EST) Metanephrine, Free 49 <=57 pg/mL [facility] Comment:This test was develo ped and its analytical performancecharacteristics have been determined by [employer] [place], [place]. It hasnot been cleared or approved by the U.S. Food and DrugAdministration. This assay has been validated pursuantto the CLIA regulations and is used for clinicalpurposes. Normetanephrine, Free 81 <=148 pg/mL [facility] Comment:This test was develo ped and its analytical performancecharacteristics have been determined by [employer] [place], [place]. It hasnot been cleared or approved by the U.S. Food and DrugAdministration. This assay has been validated pursuantto the CLIA regulations and is used for clinicalpurposes. Total, Free (MN+NMN) 130 <=205 pg/mL [facility] Comment: For additional information, please refer tohttp://education.EMCAS.Nipendo/faq/MetFractFree(This link is being provided for informational/educatioinformational/educational purposes [...] its analytical performancecharacteristics have been determined by [employer] [place], [place]. It hasnot been cleared or approved by the U.S. Food and DrugAdministration. This assay has been validated pursuantto the CLIA regulations and is used for clinicalpurposes.THIS TEST WAS PERFORMED AT:[employer] [place] ??[address]WSGOMKP W. MASON,MD,PHD 11/06/2024 7:50 AM EST 11/06/2024 7:56 AM EST us Generic External Data Provider LAB BLOOD ORDERAB LES Final Result [facility] [address] [place] [phone] * Aldosterone, LC/MS/MS (11/06/2024 7:50 AM EST) Aldosterone, LC/MS/MS 4 see note ng/dL [facility] Comment:Unable to flag abnor mal result(s), please refer to reference range(s) below:Adult Reference Ranges for Aldosterone, LC/MS/MS: Upright 8:00 - 10:00 am < or = 28 ng/dL Upright 4:00 - 6:00 pm < or = 21 ng/dL Supine 8:00 - 10:00 am 3 - 16 ng/dLThis test was developed and its analytical performancecharacteristics have been determined by [facility] [employer] [place], [place]. It hasnot been cleared or approved by the U.S. Food and DrugAdministration. This assay has been validated pursuantto the CLIA regulations and is used for clinicalpurposes.THIS TEST WAS PERFORMED AT:[employer] [id number] [place] [id number] CHEUNG MD,PHD 11/06/2024 7:50 AM EST 11/06/2024 7:56 AM EST [facility] [place] [place] External Data Provider LAB BLOOD ORDERAB LES Final Result Performing Organization Address [facility] Co de [facility] Number [facility] [address] [place] [phone] * ACTH, Plasma (11/06/2024 7:50 AM EST) ACTH, Plasma 16 6 - 50 pg/mL [facility] Comment:Reference range appl ies only to specimens collectedbetween 7am-10am.THIS TEST WAS PERFORMED AT:[employer] [id number] [place] [address]PHETMLBFERMÍN CHEUNG MD,PHD 11/06/2024 7:50 AM EST 11/06/2024 7:56 AM EST Generic External Data Provider LAB BLOOD ORDERAB LES Final Result Performing Organization Address [facility] Co de Phone Number [facility] [address] [place] [phone] * DHEA Sulfate (11/06/2024 7:50 AM EST) DHEA Sulfate 74 5 - 167 mcg/dL [facility] Comment:THIS TEST WAS PERFOR MED AT:[employer] [place] [id number] CALIX MD 11/06/2024 7:50 AM EST 11/06/2024 7:56 AM EST Generic External Data Provider LAB BLOOD ORDERAB LES Final Result Performing Organization Address [facility] Co de Phone Number [facility] [address] [place] [phone] * Cortisol Random (11/06/2024 7:50 AM EST) Pathologist [facility] Cortisol Random 11.1 ug/dL [facility] Comment:Reference Range*: Be fore 10 am 6.2-19.4 ug/dL After 5 pm 2.3-11.9 ug/dL*Please interpret above results accordingly.This test was performed using the [employer] chemiluminescentmethod. Values obtained from different assay methods cannotbe used interchangeably.Patients receiving fludrocortisone, prednisolone orprednisone may show artificially elevated cortisol valuesdue to cross-reactivity. 11/06/2024 7:50 AM EST 11/06/2024 7:56 AM EST Generic External Data Provider LAB BLOOD ORDERAB LES Final Result Performing Organization Address [facility] Co de Phone Number [facility] [address] [place] [phone] * (ABNORMAL) Basic Metabolic Panel (11/06/2024 7:50 AM EST) Pathologist [facility] Sodium 142 135 - 145 mmol/L [facility] Potassium 4.0 3.3 - 5.1 mmol/L [facility] Chloride 109(H) 96 - 108 mmol/L [facility] Carbon Dioxide 25 22 - 29 mmol/L [facility] Anion Gap 12 12 - 20 [facility] Urea Nitrogen (BUN) 23(H) 9 - 16 mg/dL [facility] Creatinine, Serum 0.75 0.5 - 1.4 mg/dL [facility] Estimated Glomerular Filt Rate >60 [facility] Comment:Chronic Kidney Disea se: Estimated GFR < 60 mL/min/1.14f0Oeirzu Kidney Disease: Estimated GFR < 15 mL/min/1.73m2 Glucose 75 60 - 115 mg/dL [facility] Calcium 9.8 8.4 - 10.2 mg/dL [facility] 11/06/2024 7:50 AM EST 11/06/2024 7:56 AM EST us Generic External Data Provider LAB BLOOD ORDERAB LES Final Result [facility] [address] [place] [phone] [phone] documented in this encounter Visit Diagnoses Not on filedocumented in this encounter Additional Health Concerns Assessment Noted Time PHQ-9 Depression Total Score: 8 07/26/20 23 10:55 AM EDT documented as of this encounter Care Teams Crane Rigger Relationship Specialty Start Date End Date Alvina Mccartney MD [address] [place] [address] PCP - General Family Medicine 11/01/18 Riky Tanner [address] [place] [address] 3rd [place] [address] Cardiology 10/03/24 Mariella Mcdonnell [address] [address] 10/11/24 Jina Vences MD [address] [place] [address] Endocrinology 11/05/24 documented as of this encounter
--- OUTSIDE RECORDS SUMMARY | 2024-12-06 11:48 | XMS_ITS | Encounter Summary ---
Author Organization [employer] Address 75 [facility] 7t [place] [address] Care Team Providers Care Med Asst Name Role Phone Alvina Mccartney MD Primary Care Provider [phone]- [phone] Riky Tanner Unavailable Mariella Mcdonnell Unavailable [phone] Jina Vences MD Unavailable Shadia Morocho Unavailable Kendall Bates MD Unavailable Encounter Details Date Type Department Care Team (Late st Contact Info) Description 04/22/2023 Orders Only [facility] [address] [place], [place] [phone] Alvina Mccartney MD [address] [place], [place] [phone] Dizzy (Primary Dx) Social History Tobacco Use [...] Description 01/01/2025 9:45 AM EST Office Visit [facility] [address] [place] [address] Alvina Mccartney MD [address] [place] [address] documented as of this encounter Visit Diagnoses Diagnosis Dizzy- Primary Dizziness and giddiness Dietary counseling Dietary surveillance and counseling Exercise counseling Overweight Major depression single episode, in partial remission (CMS/HCC) Major depressive disorder, single episode, in partial or unspecified remission Adrenal nodule (CMS/HCC) Benign neoplasm of adrenal gland documented in this encounter Care Teams Med Asst Relationship Specialty Start Date End Date Alvina Mccartney MD [address] [place] [address] PCP - General Family Medicine 11/01/18 Riky Tanner [address] 3rd [place] [address] Cardiology 10/03/24 Mariella Mcdonnell [address] [address] 10/11/24 Jina Vences MD [address] [place] [address] Endocrinology 11/05/24 Shadia Morocho PA [address] [place] [address] Orthopaedic Surgery 11/07/24 Kendall Bates MD [address] 3rd [place] [address] General Surgery 11/28/24 documented as of this encounter
--- OUTSIDE RECORDS SUMMARY | 2024-12-06 11:48 | XMS_ITS | Encounter Summary ---
Author Organization [employer] Address 75 [facility] 7t [place] [address] Care Team Providers Care Energy Efficiency Engineer Name Role Phone Alvina Mccartney MD Primary Care Provider [phone]- [phone] Riky Tanner Unavailable Mariella Mcdonnell Unavailable [phone] Jina Vences MD Unavailable Shadia Morocho Unavailable Encounter Details Date Type Department Care Team (Late st Contact Info) Description 11/09/2024 Orders Only [facility] External Provider, [facility] Adrenal nodule (CMS/HCC) (Primary Dx) Social History [...] Description 01/01/2025 9:45 AM EST Office Visit [facility] MEDICINE [address] [place] [address] Alvina cMcartney MD [address] [place], [place] [phone] documented as of this encounter Procedures Procedure Name Priority Date/Time Associated Diagnosis Comments CT ABDOMEN PELVIS WO CONTRAST Routine 11/09/2024 4:44 PM EST documented in this encounter Results * CT Abdomen Pelvis w/o Contrast (11/09/2024 4:44 PM EST) Anatomical Region Laterality Modality Body, Pelvis, Abdomen Computed T omography 11/09/2024 4:44 PM EST Narrative 11/13/2024 1:20 PM EST ? [facility] ?[address] ?[place] [address] ? CT Scan Report ? Signed ? Patient: Paulo,Lety ?MR#: [id number] ?? 1571 ? : 1970 ?Acct:[id number] ? Age/Sex: 54 / F ?ADM Date: 01/09/25 ? Loc: HO.CT ? Attending Dr: Kendall Bates MD ? Ordering Physician: Kendall Bates MD ?? Date of Service: 11/09/24 ?? Procedure(s): CT abdomen pelvis wo IV con ?? Accession Number(s): [id number] ? cc: Alvina Mccartney MD; Kendall Bates MD ? Report Number: ?? [id number]: Total DLP = ??506.00 mGy-cm ?? EXAMINATION: [...] DD/ 1644 ? TD/TT: 11/09/24 1651 ? Cable Splicer Helper: ? Procedure Note Lesa, Image - 11/13/[address] [address] [place] Scan Report Signed Patient: Leidy BatesnMR#: [id number] 1571 : 1970Acct:[id number] Age/Sex: 54 / FADM Date: 11/09/24 Loc: HO.CT Attending Dr: Kendall Bates MD Ordering Physician: Kendall Bates MD Date of Service: 11/09/24 Procedure(s): CT abdomen pelvis wo IV con Accession Number(s): [id number] cc: Alvina Mccartney MD; Kendall Bates MD Report Number: [id number]: Total DLP = 506.00 mGy-cm EXAMINATION: CT [...] 11/13/24 1317 DD/ 1644 TD/TT: 11/09/24 1651 Cable Splicer Helper: [facility] External Provider IMG CT PROCEDURES Final [...] documented as of this encounter Care Teams Energy Efficiency Engineer Relationship Specialty Start Date End Date Alvina Mccartney MD [address] [place] [address] PCP - General Family Medicine 11/01/18 Riky Tanner 11 [facility] 3rd [place] [address] Cardiology 10/03/24 Mariella Mcdonnell [address] [address] 10/11/24 Jina Vences MD [address] [place] [address] Endocrinology 11/05/24 Shadia Morocho PA 10 [facility] [address] [place] [address] Orthopaedic Surgery 11/07/24 documented as of this encounter
--- OUTSIDE RECORDS SUMMARY | 2024-12-06 11:48 | XMS_ITS | Encounter Summary ---
Author Organization [employer] Address 75 [facility] 7t [place] [address] Care Team Providers Care Lawn Technician Name Role Phone Alvina Mccartney MD Primary Care Provider [phone]- [phone] Riky Tanner Unavailable Mariella Mcdonnell Unavailable [phone] Jina Vences MD Unavailable Shadia Morocho Unavailable Encounter Details Date Type Department Care Team (Late st Contact Info) Description 11/11/2024 Orders Only [facility] External Provider, [facility] Chronic pain of left knee (Primary [...] Description 01/01/2025 9:45 AM EST Office Visit [facility] MEDICINE 230 [place] [address] Alvina Mccartney MD 230 [place] [address] documented as of this encounter Procedures Procedure Name Priority Date/Time Associated Diagnosis Comments MR KNEE WO CONTRAST LEFT Routine 11/11/2024 7:52 PM EST documented in this encounter Results * MR Knee w/o Contrast Left (11/11/2024 7:52 PM EST) Anatomical Region Laterality Modality Magnetic Resonan ce 11/11/2024 7:52 PM EST Narrative 11/14/2024 8:36 AM EST ? [facility] ?[address] ?[place] [address] ? Magnetic Resonance Report ? Signed ? Patient: Lety Bates ?MR#: [id number] ?? 1571 ? : 1970 ?Acct:[id number] ? Age/Sex: 54 / F ?ADM Date: /11/25 ? Loc: HO.MRI ? Attending Dr: Ariel Morocho PA-C ? Ordering Physician: Ariel Morocho PA-C ?? Date of Service: 11/11/24 ?? Procedure(s): MR knee LT wo con ?? Accession Number(s): [id number] ? cc: Alvina Mccartney MD; Ariel Morocho [...] ? DD/ 51 ? TD/TT: 11/11/242014 ? Director Of Enterprise Architecture: ? Procedure Note Lesa, Image - 11/14/[address] [address] Magnetic Resonance Report Signed Patient: Luann Bates#: [id number] 1571 : 1970Acct:[id number] Age/Sex: 54 / FADM Date: 11/11/24 Loc: HO.MRI Attending Dr: Ariel Morocho PA-C Ordering Physician: Ariel Morocho PA-C Date of Service: 11/11/24 Procedure(s): MR knee LT wo con Accession Number(s): [id number] cc: Alvina Mccartney MD; Ariel Morocho PA-C [...] by: Elder Esparza MD 11/14/2024 08:33 AM [facility] Dictated By: Elder Esparza MD Signed By: <Electronically signed by Elder Esparza MD in OV> 11/14/24 0833 DD/ 51 TD/TT: 11/11/242014 Director Of Enterprise Architecture: [facility] External Provider IMG MRI PROCEDURES Final Result documented in this encounter Visit Diagnoses Diagnosis Chronic pain of left knee- Primary Dietary counseling Dietary surveillance and counseling Exercise counseling Overweight Major depression single episode, in partial remission (CMS/HCC) Major depressive disorder, single episode, in partial or unspecified remission Adrenal nodule ([facility]/HCC) Benign neoplasm of adrenal gland documented in this encounter Additional Health Concerns Assessment Noted Time PHQ-9 Depression Total Score: 8 07/26/20 23 10:55 AM EDT documented as of this encounter Care Teams Lawn Technician Relationship Specialty Start Date End Date Alvina Mccartney MD 230 [place] [address] PCP - General Family Medicine 11/01/18 Riky Tanner [address] 3rd [place] [address] Cardiology 10/03/24 Mariella Mcdonnell [address] [address] 10/11/24 Jina Vences MD [address] [place] [address] Endocrinology 11/05/24 Shadia Morocho PA [address] [place] [address] Orthopaedic Surgery 11/07/24 documented as of this encounter
== END 2024-12-06 10:42 | disposition home or self-care (01) ==
LOC: HO.MAMMO 10:41
PROVIDERS: PCP Family Medicine; Visit Provider Family Medicine
DX: Z13.89 Encounter for screening for other disorder (principal)

== ENCOUNTER 2024-12-14 14:55 | Outpatient (AMB) | payer OTHER, SELFPAY ==
--- NOTE | 2024-12-14 14:55 | MHC.OFFVIS ---
Intake Visit Reasons: Tel-left knee MRI review Allergies No Known Allergies Allergy (Verified 12/01/24 10:37) HPI HPI Tel-left knee MRI review: Details: Lety is a 54 year old female who presents today via telephone for a MRI review of her left knee. She states she continues to have pain in the knee with bending and stairs. [facility] Medical History Adrenal incidentaloma Back pain Pre-diabetes GERD (gastroesophageal reflux disease) Fibromyalgia Bipolar disorder Insomnia Anxiety Depression Syncope Mild intermittent asthma NAFLD (nonalcoholic fatty liver disease) Vertigo Sleep apnea IBS (irritable bowel syndrome) Arthritis HTN (hypertension) Surgical History History of umbilical hernia repair (~11/14/24) Hx of colonoscopy History of esophagogastroduodenoscopy (EGD) History of hysterectomy Family History Father Diabetes Arthritis Hypertension Hypercholesteremia Cancer Mother Diabetes Hypertension Arthritis Cancer Son Asthma Son Asthma Heart problem Social History Are you a primary health care / medical job titles to a significant other at home: No Do you presently have visiting nurse or other home services: No Alcohol intake: never Patient Tobacco Use Status: Never used Tobacco Current occupational status: retired Review of Systems Const All systems reviewed & are unremarkable except as noted in HPI and below Telehealth Telehealth Location of provider rendering services: practice address Location of patient: address on file Patient Identification confirmed using: Name, : Yes Telehealth method: voice only Patient verbally consented to treatment: Yes Patient verbally consented to billing insurance company: Yes Patient informed of any privacy concerns related to visit: Yes Results Reviewed Results Reviewed: IMPRESSION: 1. Moderate joint effusion. 2.0 cm probable ganglion cyst posterior to the medial tibial plateau. 3. Moderate patellofemoral osteoarthritis. Mild osteoarthritis of the medial compartment. Electronically signed by: Elder Esparza MD 11/14/2024 08:33 AM [facility] Assessment & Plan Assessment & Plan (1) Patellofemoral arthralgia of left knee: Code(s): M25.562 - Pain in left knee Category: Medical Plan: MRI was reviewed which is significant for moderate patellofemoral arthritis. I explained options which include PT , modifications of activities such as avoiding stairs and injections . She is interested in a steroid injection and she has had relief with this in the past. We will proceed with booking this in the next couple of weeks. Medications: New celecoxib (Celebrex) 200 mg PO BID 60 caps 3RF 30 days celecoxib (Celebrex) 200 mg PO BID 30 days 60 caps 3RF Coding Level of Care Code Tele Est Pt Level 3 (68499) Diagnoses Patellofemoral arthralgia of left knee M25.562
--- OUTSIDE RECORDS SUMMARY | 2024-12-14 14:57 | XMS_ITS | Encounter Summary ---
Author Organization [employer] Address 75 [facility] 7t [place] [address] Care Team Providers Care Gunsmith Apprentice Name Role Phone Alvina Mccartney MD Primary Care Provider [phone]- [phone] Riky Tanner Unavailable Mariella Mcdonnell Unavailable Jina Vences MD Unavailable Shadia Morocho Unavailable Encounter Details Date Type Department Care Team (Late st Contact Info) Description 11/11/2024 Orders Only [facility] External Provider, [facility] Chronic pain of left knee (Primary [...] Description 01/01/2025 9:45 AM EST Office Visit [facility] MEDICINE [address] [place] [address] Alvina Mccartney MD 230 [place] [address] documented as of this encounter Procedures Procedure Name Priority Date/Time Associated Diagnosis Comments MR KNEE WO CONTRAST LEFT Routine 11/11/2024 7:52 PM EST documented in this encounter Results * MR Knee w/o Contrast Left (11/11/2024 7:52 PM EST) Anatomical Region Laterality Modality Magnetic Resonan ce 11/11/2024 7:52 PM EST Narrative 11/14/2024 8:36 AM EST ? [facility] ?[address] ?[place] [address] ? Magnetic Resonance Report ? Signed ? Patient: Lety Bates ?MR#: [id number] ?? 1571 ? : 1970 ?Acct:[id number] ? Age/Sex: 54 / F ?ADM Date: /11/25 ? Loc: HO.MRI ? Attending Dr: Ariel Morocho PA-C ? Ordering Physician: Ariel Morocho PA-C ?? Date of Service: 11/11/24 ?? Procedure(s): MR knee LT wo con ?? Accession Number(s): [id number] ? cc: Alvina Mccartney MD; Ariel Morocho [...] ? DD/ 51 ? TD/TT: 11/11/242014 ? Vineyard Tender: ? Procedure Note Lesa, Image - 11/14/[address] [address] Magnetic Resonance Report Signed Patient: Luann Bates#: [id number] 1571 : 1970Acct:[id number] Age/Sex: 54 / FADM Date: 11/11/24 Loc: HO.MRI Attending Dr: Ariel Morocho PA-C Ordering Physician: Ariel Morocho PA-C Date of Service: 11/11/24 Procedure(s): MR knee LT wo con Accession Number(s): [id number] cc: Alvina Mccartney MD; Ariel Morocho PA-C [...] by: Elder Esparza MD 11/14/2024 08:33 AM [facility] Dictated By: Elder Esparza MD Signed By: <Electronically signed by Elder Esparza MD in OV> 11/14/24 0833 DD/ 51 TD/TT: 11/11/242014 Vineyard Tender: [facility] External Provider IMG MRI PROCEDURES Final Result documented in this encounter Visit Diagnoses Diagnosis Chronic pain of left knee- Primary Dietary counseling Dietary surveillance and counseling Exercise counseling Overweight Major depression single episode, in partial remission (CMS/HCC) Major depressive disorder, single episode, in partial or unspecified remission Adrenal nodule ([facility]/HCC) Benign neoplasm of adrenal gland documented in this encounter Additional Health Concerns Assessment Noted Time PHQ-9 Depression Total Score: 8 07/26/20 23 10:55 AM EDT documented as of this encounter Care Teams Gunsmith Apprentice Relationship Specialty Start Date End Date Alvina Mccartney MD 230 [place] [address] PCP - General Family Medicine 11/01/18 Riky Tanner [address] 3rd [place] [address] Cardiology 10/03/24 Mariella Mcdonnell [address] [address] 10/11/24 Jina Vences MD [address] [place] [address] Endocrinology 11/05/24 Shadia Morocho PA [address] [place] [address] Orthopaedic Surgery 11/07/24 documented as of this encounter
--- OUTSIDE RECORDS SUMMARY | 2024-12-14 14:57 | XMS_ITS | Encounter Summary ---
Author Organization [employer] Address 75 [facility] 7t [place] [address] Care Team Providers Care Flarer Name Role Phone Alvina Mccartney MD Primary Care Provider [phone]- [phone] Riky Tanner Unavailable Mariella Mcdonnell Unavailable [phone] Jina Vences MD Unavailable Shadia Morocho Unavailable Kendall Bates MD Unavailable [phone] Reason for Visit * Reason Comments Med Refill Encounter Details Date Type Department Care Team (Late st Contact Info) Description 06/05/[address] [facility] MEDICINE [address] [place], [place] [phone] Alvina Mccartney MD 230 [place], [place] [phone] Pain Social History Tobacco Use Types Packs/Day [...] Description 01/01/2025 9:45 AM EST Office Visit [facility] MEDICINE [address] [place] [address] Alvina Mccartney MD [address] [place] [address] documented as of this encounter Visit Diagnoses [...] documented as of this encounter Care Teams Flarer Relationship Specialty Start Date End Date Alvina Mccartney MD [address] [place] [address] PCP - General Family Medicine 11/01/18 Riky Tanner [address] [place] [address] 3rd [place] [address] Cardiology 10/03/24 Mariella Mcdonnell 3640 Main [facility] [address] [place] [address] 10/11/24 Jina Vences MD [address] [place] [address] Endocrinology 11/05/24 Shadia Morocho PA [address] [place] [address] Orthopaedic Surgery 11/07/24 Kendall Bates MD [address] 3rd [place] [address] General Surgery 11/28/24 documented as of this encounter
--- OUTSIDE RECORDS SUMMARY | 2024-12-14 14:57 | XMS_ITS | Encounter Summary ---
Author Organization [employer] [facility] Address 75 [facility] 7t [place] [address] Care Team Providers Care Wildlife Refuge Specialist Name Role Phone Alvina Mccartney MD Primary Care Provider [phone]- [phone] Riky Tanner Unavailable Marielal Mcdonnell Unavailable Jina Vences MD Unavailable Shadia Morocho Unavailable Kendall Bates MD Unavailable [phone] Encounter Details Date Type Department Care Team (Late st Contact Info) Description 12/03/2022 Abstract [facility] MEDICINE [address] [place] [phone] Alvina Mccartney MD 230 [place], [place] [phone] Social History Tobacco Use Types Packs/Day Years [...] 01/01/2025 9:45 AM EST Office Visit [facility] MEDICINE 230 [place] [address] Alvina Mccartney MD 230 [place] [address] documented as of this encounter Procedures Procedure [...] on filedocumented in this encounter Care Teams Wildlife Refuge Specialist Relationship Specialty Start Date End Date Alvina Mccartney MD 230 [place] [address] PCP - General Family Medicine 11/01/18 Riky Tanner [address] 3rd [place] [address] Cardiology 10/03/24 Mariella Mcdonnell [address] [address] 10/11/24 J[place] [address] Endocrinology 11/05/24 Shadia Morocho PA [address] [place] [address] Orthopaedic Surgery 11/07/24 Kendall Bates MD [address] [place] [address] Drive 3rd Floor [place] [address] General Surgery 11/28/24 documented as of this encounter
--- OUTSIDE RECORDS SUMMARY | 2024-12-14 14:57 | XMS_ITS | Encounter Summary ---
Author Organization [employer] Address 75 [facility] 7t [place] [address] Care Team Providers Care Epidemiology Investigator Name Role Phone Alvina Mccartney MD Primary Care Provider [phone]- [phone] Riky Tanner Unavailable Mariella Mcdonnell Unavailable Jina Vences MD Unavailable Shadia Morocho Unavailable Kendall Bates MD Unavailable [phone] Encounter Details Date Type Department Care Team (Late st Contact Info) Description 10/16/2022 Orders Only [facility] MEDICINE [address] [place] [address] Anel Espinoza, RN Social History Tobacco [...] Description 01/01/2025 9:45 AM EST Office Visit [facility] MEDICINE [address] [place] [phone] Alvina Mccartney MD 230 [place], [place] [phone] documented as of this encounter Visit Diagnoses Not on filedocumented in this encounter Care Teams Epidemiology Investigator Relationship Specialty Start Date End Date Alvina Mccartney MD 230 [place] [address] PCP - General Family Medicine 11/01/18 Riky Tanner 11 [facility] 3rd [place] [address] Cardiology 10/03/24 Mariella Mcdonnell [address] [address] 10/11/24 Jina Vences MD [address] [place] [address] Endocrinology 11/05/24 Shadia Morocho PA [address] [place] [address] Orthopaedic Surgery 11/07/24 Kendall Bates MD [address] [address] General Surgery 11/28/24 documented as of this encounter
--- OUTSIDE RECORDS SUMMARY | 2024-12-14 14:57 | XMS_ITS | Encounter Summary ---
Author Organization [employer] Address 75 [facility] 7t [place] [address] Care Team Providers Care Vault Keeper Name Role Phone Alvina Mccartney MD Primary Care Provider [phone] Riky Tanner Unavailable Mariella Mcdonnell Unavailable [phone] Jina Vences MD Unavailable Shadia Morocho Unavailable Kendall Bates MD Unavailable Encounter Details Date Type Department Care Team (Late st Contact Info) Description 04/22/2023 Orders Only [facility] MEDICINE 230 [place], [place] [phone] Alvina Mccartney MD 230 [place], [place] [phone] Dizzy (Primary Dx) Social History Tobacco Use [...] Description 01/01/2025 9:45 AM EST Office Visit [facility] MED[facility]INE [address] [place] [address] Alvina Mccartney MD [address] [place] [address] documented as of this encounter Visit Diagnoses Diagnosis Dizzy- Primary Dizziness and giddiness Dietary counseling Dietary surveillance and counseling Exercise counseling Overweight Major depression single episode, in partial remission (CMS/HCC) Major depressive disorder, single episode, in partial or unspecified remission Adrenal nodule (CMS/HCC) Benign neoplasm of adrenal gland documented in this encounter Care Teams Vault Keeper Relationship Specialty Start Date End Date Alvina Mccartney MD 230 [place] [address] PCP - General Family Medicine 11/01/18 Riky Tanner [address] 3rd [place] [address] Cardiology 10/03/24 Mariella Mcdonnell [address] [address] 10/11/24 Jina Vences MD [address] [place] [address] Endocrinology 11/05/24 Shadia Morocho PA [address] [place] [address] Orthopaedic Surgery 11/07/24 Kendall Bates MD [address] 3rd [place] [address] General Surgery 11/28/24 documented as of this encounter
--- OUTSIDE RECORDS SUMMARY | 2024-12-14 14:57 | XMS_ITS | Encounter Summary ---
Author Organization [employer] Address 75 [facility] 7t [place] [address] Care Team Providers Care Package Drier Name Role Phone Alvina Mccartney MD Primary Care Provider Riky Tanner Unavailable Mariella Mcdonnell Unavailable [phone] Jina Vences MD Unavailable Shadia Morocho Unavailable Kendall Bates MD Unavailable [phone] Encounter Details Date Type Department Care Team (Late st Contact Info) Description 04/14/2024 Abstract [facility] MED[facility]INE 230 [place], [place] [phone] Hayley Briscoe [place] Social History Tobacco Use [...] Description 01/01/2025 9:45 AM EST Office Visit [facility] MEDICINE 230 [place] [address] Alvina Mccartney MD [address] [place] [address] documented as of this encounter Procedures Procedure Name Priority Date/Time Associated Diagnosis Comments DIABETES EYE EXAM Routine 04/04/2024 documented in this encounter Results * Diabetes Eye Exam (04/04/2024) [facility] Signature Eye Exam Normal Normal Comment:repeat 5 year 04/04/2024 Historical Provider HEALTH MAINTENANCE Final Result documented in this encounter Visit Diagnoses Not on filedocumented in this encounter Additional Health Concerns Assessment Noted Time PHQ-9 Depression Total Score: 8 07/26/20 23 10:55 AM EDT documented as of this encounter Care Teams Package Drier Relationship Specialty Start Date End Date Alvina Mccartney MD [address] [place] [address] PCP - General Family Medicine 11/01/18 Riky Tanner [address] 3rd [place] [address] Cardiology 10/03/24 Mariella Mcdonnell [address] [address] 10/11/24 Jina Vences MD [address] [place] [address] Endocrinology 11/05/24 Shadia Morocho PA [address] [place] [address] Orthopaedic Surgery 11/07/24 Kendall Bates MD [address] 3rd [place] [address] General Surgery 11/28/24 documented as of this encounter
--- OUTSIDE RECORDS SUMMARY | 2024-12-14 14:57 | XMS_ITS | Encounter Summary ---
Author Organization [employer] Address 75 [facility] 7t [place] [address] Care Team Providers Care Animal Husbandry Professor Name Role Phone Alvina Mccartney MD Primary Care Provider [phone] Riky Tanner Unavailable Mariella Mcdonnell Unavailable [phone] Jina Vences MD Unavailable Shadia Morocho Unavailable Reason for Visit * Reason Onset Date Comments triage 03/17/2023 Encounter Details Date Type Department Care Team (Late st Contact Info) Description 03/17/2023 Telephone [facility] MEDICINE 230 [place], [place] [phone] Alvina Mccartney MD 230 [place], [place] [phone] triage Social History Tobacco Use Types Packs/Day [...] 03/17/2023 1:11 PM EDT Triage call with [place] [id number] Pt reports dizziness since fall and seen in ED 02/10. Pt reports lightheadedness, tiredness, feelingweak, room does spin and tilt at times and Pt will sit down when that happens. Pt denies fever, nausea, vomiting. Pt has apt tomorrow with neurologist and sap senior developer has been seen already with another apt [...] caller accepted this outcome Please contact at [phone] Italian documented in this encounter Plan of Treatment Upcoming Encounters Date Type Department Care Team (Late st Contact Info) Description 01/01/2025 9:45 AM EST Office Visit [facility]INE 230 [place] [address] Alvina Mccartney MD 230 [place] [address] documented as of this encounter Visit Diagnoses Not on filedocumented in this encounter Care Teams Animal Husbandry Professor Relationship Specialty Start Date End Date Alvina Mccartney MD 230 [place] [address] PCP - General Family Medicine 11/01/18 Riky Tanner [address] [place] [address] 3rd [place] [address] Cardiology 10/03/24 Mariella Mcdonnell [address] [address] 10/11/24 Jina Vences MD [address] [place] [address] Endocrinology 11/05/24 Shadia Morocho PA [address] [facility] [address] [place] [address] Orthopaedic Surgery 11/07/24 documented as of this encounter
--- OUTSIDE RECORDS SUMMARY | 2024-12-14 14:57 | XMS_ITS ---
Author Name MS. Aba Kirkpatrick APRN Address [address] [place] [address] Phone [phone] [facility] Team Providers Care Pet Sitter Name Role Phone Debbie Kirkpatrick Unavailable [phone] Unavailable Unavailable Unavailable DOROTHEA NEAL Unavailable [phone] Carina Baird Unavailable Unavailable Unavailable Unavailable Unavailable [...] Date Major depressive disorder, r ecurrent, mild; ROEBRTO; Insomnia Active 2023-10-05 N/A Vertigo Active 2023-10-05 N/A Neuropathic pain Active 2023-10-05 N/A Vitamin D deficiency Active 2023-10-05 N/A GERD (gastroesophageal reflux disease) Active 23-10-05 N/A Mild intermittent asthma Active 2023-10-05 N/A Essential hypertension Active 2023-10-05 N/A Other problems related to [facility] facilities and other health care Active 2024-04-25 N/A Encounters Encounters Type Facility Date of Service Diagnosis/Co mplaint New patient, 30-44min 1 stable chronic or 2 minor; add modifier 95 for video, modifier 93 for phone [facility]23 Major depressive disorder, recurrent, mildInsomnia, unspecifiedGeneralized anxiety disorderGastro-esophageal reflux disease without esophagitisDizziness and giddinessEssential (primary) hypertensionNeuralgia and neuritis, unspecifiedVitamin D deficiency, unspecifiedMild intermittent asthma, uncomplicated New patient, 30-44min 1 stable chronic or 2 minor; add modifier 95 for video, modifier 93 for phone [facility] New patient, 30-44min 1 stable chronic or 2 minor; add modifier 95 for video, modifier 93 for phone [facility] New patient, 30-44min 1 stable chronic or 2 minor; add modifier 95 for video, modifier 93 for phone [facility]2023 New patient, 30-44min 1 stable chronic or 2 minor; add modifier 95 for video, modifier 93 for phone [facility] New patient, 30-44min 1 stable chronic or 2 minor; add modifier 95 for video, modifier 93 for phone [facility] Estab. patient 30-39min; chronic exacerbation, 2 stable chronic or 1 acute illness add add modifier 95 for video, (do not use for phone, instead use [id number]) [facility] Major depressive disorder, recurrent, mildInsomnia, unspecifiedGeneralized anxiety disorderGastro-esophageal reflux disease without esophagitisDizziness and giddinessEssential (primary) hypertensionNeuralgia and neuritis, unspecifiedVitamin D deficiency, unspecifiedMild intermittent asthma, uncomplicatedOther problems related to medical facilities and other health care Estab. patient 30-39min; chronic exacerbation, 2 stable chronic or 1 acute illness add add modifier 95 for video, (do not use for phone, instead use [id number]) [facility] Estab. patient 30-39min; chronic exacerbation, 2 stable chronic or 1 acute illness add add modifier 95 for video, (do not use for phone, instead use [id number]) [facility] Estab. patient 30-39min; chronic exacerbation, 2 stable chronic or 1 acute illness add add modifier 95 for video, (do not use for phone, instead use [id number]) [facility] Estab. patient 30-39min; chronic exacerbation, 2 stable chronic or 1 acute illness add add modifier 95 for video, (do not use for phone, instead use [id number]) [facility] Estab. patient 30-39min; chronic exacerbation, 2 stable chronic or 1 acute illness add add modifier 95 for video, (do not use for phone, instead use [id number]) [facility] Estab. patient 30-39min; chronic exacerbation, 2 stable chronic or 1 acute illness add add modifier 95 for video, (do not use for phone, instead use [id number]) [facility] Estab. patient 30-39min; chronic exacerbation, 2 stable chronic or 1 acute illness add add modifier 95 for video, (do not use for phone, instead use [id number]) [facility] Estab. patient 30-39min; chronic exacerbation, 2 stable chronic or 1 acute illness add add modifier 95 for video, (do not use for phone, instead use [id number]) [facility] Unlisted special service; to be used for medical record reviews and reporting CPTII codes (1111F, etc) [facility] 09/04/2024 Other specified health statu s Unlisted special service; to be used for medical record reviews and reporting CPTII codes (1111F, etc) [facility] Unlisted special service; to be used for medical record reviews and reporting CPTII codes (1111F, etc) [facility] 09[place]20[place] Vital Signs Date of Collection [...] tive Time Current Smoking Status Never smoker 2024-12-02 3 Sex Female History of Procedures Procedures Service Procedure code Service date Servicing provider Phone# New patient, 30-44min 1 stable chronic or 2 minor; add modifier 95 for video, modifier 93 for phone [id number] 2023-10-05 No Data Available No Data Available [...] (do not use for phone, instead use [id number]) 59012 2024-04-25 No Data Available No Data Availa [...] reviews and reporting CPTII codes (1111F, etc) 54245 2024-09-04 No Data Available No Data Availa ble SBP < 130 (3074F) 3074F 2024-09-04 No Data Available No Data Available DBP <80 (3078F) 3078F 2024-09-04 No Data Available No Data Available Functional Status Functional Category Effective Dates EXPLORATION MANAGER assists with cooking, cl eaning, laundry, showering [...] Contact mental health professional:/ Transfer member to [address] [place] [address]/ Hydroxyzine (Vistaril) 25mg PO q6h PRN anxiety/ [...]
--- OUTSIDE RECORDS SUMMARY | 2024-12-14 14:57 | XMS_ITS | Clinical Summary ---
Author Organization [employer] Address [address] [facility] 7t [place] [address] Care Team Providers Care Blood Bank Laboratory Professional Name Role Phone Alvina Mccartney MD Primary Care Provider [phone] Riky Tanner Unavailable Mariella Mcdonnell Unavailable Jina Vences MD Unavailable Shadia Morocho Unavailable Kendall Bates MD Unavailable [phone] Allergies No known active allergies Medications amLODIPine [...] Hester Active DULoxetine (Cymbalta) [address] capsuleIndlibertyti ons:Major depression single episode, in partial remission [...] mouth Once per day. 30 tablet 07/05/20 24 025 Active lidocaine (LMX 4) 4 % [...] times daily. 90 capsule 12/03/19 25 Active gabapentin (Neurontin) 300 MG capsuleIndicati ons:Pain TAKE 1 CAPSULE BY MOUTH THREE TIMES DAILY IN THE MORNING, EVENING, AND BEDTIME 90 capsule 11/02/19 25 025 Discontinued(Re order (will not trigger notification to Pharmacy)) Active Problems Problem Noted Date Diagnosed Date Chronic pain of left knee 11/07/2024 Overview (11/14/2024): -seen by Ariel Morocho PA-C of [facility] 11/07/23 -MR/MR knee LT wo [...] describing symptoms of lightheadedness when turning head lsmo-fu-[id number] which sounds more like vertigo. No clear cardiac finding for her syncope. She does have known history of vertigo and has meclizine that she can use if needed for that symptom. Continue with good hydration, use much caution when sitting to standing, use ambulatory assistive devices if needed. Do not drive if feeling lightheaded. 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 -Referral to re-establish care with [facility] Essential hypertension 12/12/2018 Overview (10/03/2024): Followed by Dr. Riky Tanner MD at [facility]. Note from 09/2024 reviewed. 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 Obstructive sleep apnea syndrome 12/12/2018 Overview (10/11/2024): Followed by [facility]. Sleep study 10/07/18 reveals severe SILVER. -Currently using CPAP nightly She started 11/05/2018 -seen by CIARA Lepe on 10/09/24 continue CPAP 14 cmH2O. Supplies are though [employer] Assessment & Plan (07/21/2023 1:56 PM EDT): Followed by [facility]. Sleep study 10/07/18 reveals severe SILVER. -Currently using CPAP nightly She started 11/05/2018 Backache 09/12/2014 Allergic rhinitis 04/20/2012 Anxiety 04/20/2012 Carpal tunnel syndrome 04/20/2012 Overview (08/01/2024): NCS 2019 NERVE CONDUCTION EMG STUDY: This [...] and therapist. No SI/HI. Reports going to [facility], where she sees her specialists. Assessment & [...] and therapist. No SI/HI. Reports going to [facility], where she sees her specialists. Resolved Problems [...] Type Department Care Team Description 12/01/2024 Refill [facility] [address] [facility] [place] [address] Alvina Mccartney MD Pain 12/01/2024 Refill [facility] [address] [place] [address] Alvina Mccartney MD Pain 11/11/2024 Orders Only [facility] External Provider, [facility] Chronic pain of left knee (Primary Dx) 11/10/2024 Orders Only GENERIC EXTERNAL DATA DEPARTMENT Provider, Generic External Data 11/09/2024 Orders Only [facility] External Provider, [facility] Adrenal nodule (CMS/HCC) (Primary Dx) 11/09/2024 Telephone [facility] [address] [place] [phone] Berto Schroeder [place] March recall 11/06/2024 Orders Only GENERIC EXTERNAL DATA DEPARTMENT Provider, Generic External Data 11/02/2024 Refill [facility] [place] [address] Alvina Mccartney MD Pain 10/16/2024 Telephone [facility] [address] [place] [address] Alivna Mccartney MD 10/09/2024 Telephone [facility] [address] [place] [phone] Harleen Paredes, repair order clerk Referral 10/06/2024 Telephone [facility] [address] [place] [address] Alvina Mccartney MD Record Request 10/06/2024 Telephone [facility] [address] [place] [address] Alvina Mccartney MD 10/06/2024 Orders Only [facility] [address] [place] [address] Alvina Mccartney MD 09/26/2024 Refill [facility] [address] [place] [address] Alvina Mccartney MD Pain 09/25/2024 Telephone [facility] [address] [place], [place] [phone] Alvina Mccartney MD 09/25/2024 Telephone [facility] [address] [place], [place] [phone] Alvina Mccartney MD from Last 3 Months [...] your housing situation today? I have yazmin piotr 08/26/[address] you li [...] Description 01/01/2025 9:45 AM EST Office Visit [facility] [address] [place] [address] Alvina Mccartney MD [address] [place] [address] Health Maintenance Due Date Last Done Comments [...] EST Narrative 11/14/2024 8:36 AM EST ? [facility] ?[address] ?[place] [address] ? Magnetic Resonance Report ? Signed ? Patient: Leidy Batesn ?MR#: [id number] ?? 1571 ? : 1970 ?Acct:[id number] ? Age/Sex: 54 / F ?ADM Date: 11/11/24 ? Loc: HO.MRI ? Attending Dr: Ariel Morocho PA-C ? Ordering Physician: Ariel Morocho PA-C ?? Date of Service: 11/11/24 ?? Procedure(s): MR knee LT wo con ?? Accession Number(s): [id number] ? cc: Alvina Mccartney MD; Ariel Morocho [...] ? DD/ 53 ? TD/TT: 11/11/242014 ? Rehabilitation Services Director: ? Procedure Note Lesa, Talya - 11/14/[address] [address] Magnetic Resonance Report Signed Patient: Leidy BatesBetsy#: [id number] 1571 : 1970Acct:[id number] Age/Sex: 54 / FADM Date: 11/11/24 Loc: HO.MRI Attending Dr: Ariel Morocho PA-C Ordering Physician: Ariel Morocho PA-C Date of Service: 11/11/24 Procedure(s): MR knee LT wo con Accession Number(s): [id number] cc: Alvina Mccartney MD; Ariel Morocho PA-C [...] OV> 11/14/24 0833 DD/ 51 TD/TT: 11/11/242014 Rehabilitation Services Director: [facility] External Provider IMG MRI PROCEDURES Final Result * Dexamethasone (11/10/2024 8:10 AM EST) Dexamethasone 260 ng/dL [facility] Comment:Reference Ranges for Dexamethasone:Baseline: Less than 20 ng/dL1 mg dexamethasone overnight: 180-550 ng/dL (8:00-10:00 AM)This test was developed and its analytical performancecharacteristics have been determined by [employer].It has not been cleared or approved by FDA. This assay hasbeen validated pursuant to the CLIA regulations and is usedfor clinical purposes.THIS TEST WAS PERFORMED AT:[facility].at [id number] [facility] [place] [address]YEOXVTIA COTTON MD,PHD,JENNIFER 11/10/2024 8:10 AM EST 11/10/2024 8:10 AM EST Generic External Data Provider LAB BLOOD ORDERAB LES Final Result Performing Organization Address [facility] Number [facility] [address] [place] [phone] * Cortisol Random (11/10/2024 8:10 AM EST) Only the most recent of2 resultswithin the time period is included. [facility] Cortisol Random <1.0 ug/dL [facility] Comment:Reference Range*: Be fore 10 am 6.2-19.4 ug/dL After 5 pm 2.3-11.9 ug/dL*Please interpret above results accordingly.This test was performed using the kubo financiero chemiluminescentmethod. Values obtained from different assay methods cannotbe used interchangeably.Patients receiving fludrocortisone, prednisolone orprednisone may show artificially elevated cortisol valuesdue to cross-reactivity. 11/10/2024 8:10 AM EST 11/10/2024 8:10 AM EST Generic External Data Provider LAB BLOOD ORDERAB LES Final Result Performing Organization Address [facility] de Phone Number [facility] [address] [place] [phone] * (ABNORMAL) ACTH, Plasma (11/10/2024 8:10 AM EST) Only the most recent of2 resultswithin the time period is included. ACTH, Plasma <5(A) 6 - 50 pg/mL [facility] Comment:Reference range appl ies only to specimens collectedbetween 7am-10am.THIS TEST WAS PERFORMED AT:[id number] [place] [address]YQNKPDPFERMÍN CHEUNG MD,PHD 11/10/2024 8:10 AM EST 11/10/2024 8:10 AM EST us Generic External Data Provider LAB BLOOD ORDERAB LES Final Result [facility] [address] [place] [address] [phone] * CT Abdomen Pelvis w/o Contrast (11/09/2024 4:44 PM EST) Anatomical Region Laterality Modality Body, Pelvis, Abdomen Computed T omography 11/09/2024 4:44 PM EST Narrative 11/13/2024 1:20 PM EST ? [facility] ?[address] ?[place] [address] ? CT Scan Report ? Signed ? Patient: Isis Bateslyn ?MR#: [id number] ?? 1571 ? : 1970 ?Acct:[id number] ? Age/Sex: 54 / F ?ADM Date: 11/09/24 ? Loc: HO.CT ? Attending Dr: Kendall Bates MD ? Ordering Physician: Kendall Bates MD ?? Date of Service: 11/09/24 ?? Procedure(s): CT abdomen pelvis wo IV con ?? Accession Number(s): [id number] ? cc: Alvina Mccartney MD; Kendall Bates MD ? Report Number: ?? [id number]: Total DLP = ??506.00 mGy-cm ?? EXAMINATION: [...] signed by Elder Esparza MD in OV> ?11/13/247 ? DD/ 1644 ? TD/TT: 11/09/24 1651 ? Rehabilitation Services Director: ? Procedure Note Donotuseinterpreter, Image - 11/13/[address] [place] [address] [address] Scan Report Signed Patient: Luann Bates#: [id number] 1571 : 1970Acct:[id number] Age/Sex: 54 / FADM Date: 11/09/24 Loc: HO.CT Attending Dr: Kendall Bates MD Ordering Physician: Kendall Bates MD Date of Service: 11/09/24 Procedure(s): CT abdomen pelvis wo IV con Accession Number(s): [id number] cc: Alvina Mccartney MD; Kendall Bates MD Report Number: [id number]: Total DLP = 506.00 mGy-cm EXAMINATION: CT [...] by: Elder Esparza MD 11/13/2024 01:17 PM [facility] Dictated By: Elder Esparza MD Signed By: <Electronically signed by Elder Esparza MD in OV> 11/13/24 1317 DD/ 1644 TD/TT: 11/09/24 1651 Rehabilitation Services Director: [facility] External Provider IMG CT PROCEDURES Final Result * Metanephrines, Fractionated, Free, LC/MS/MS, Plasma (11/06/2024 7:50 AM EST) Metanephrine, Free 49 <=57 pg/mL [facility] Comment:This test was develo ped and its analytical performancecharacteristics have been determined by [employer] [place], [place]. It hasnot been cleared or approved by the U.S. Food and DrugAdministration. This assay has been validated pursuantto the CLIA regulations and is used for clinicalpurposes. Normetanephrine, Free 81 <=148 pg/mL [facility] Comment:This test was develo ped and its analytical performancecharacteristics have been determined by [employer] [place], [place]. It hasnot been cleared or approved by the U.S. Food and DrugAdministration. This assay has been validated pursuantto the CLIA regulations and is used for clinicalpurposes. Total, Free (MN+NMN) 130 <=205 pg/mL [facility] Comment: For additional information, please refer tohttp://education.Stkr.it/faq/MetFractFree(This link is being provided for informational/educatioinformational/educational purposes [...] its analytical performancecharacteristics have been determined by [employer]. It hasnot been cleared or approved by the U.S. Food and DrugAdministration. This assay has been validated pursuantto the CLIA regulations and is used for clinicalpurposes.THIS TEST WAS PERFORMED AT:[facility].at [id number] [place] [address] ??[id number] CHEUNG MD,PHD 11/06/2024 7:50 AM EST 11/06/2024 7:56 AM EST Generic External Data Provider LAB BLOOD ORDERAB LES Final Result Performing Organization Address [facility] de Phone Number [facility] [address] [place] [phone] * Aldosterone, LC/MS/MS (11/06/2024 7:50 AM EST) Aldosterone, LC/MS/MS 4 see note ng/dL [facility] Comment:Unable to flag abnor mal result(s), please refer to reference range(s) below:Adult Reference Ranges for Aldosterone, LC/MS/MS: Upright 8:00 - 10:00 am < or = 28 ng/dL Upright 4:00 - 6:00 pm < or = 21 ng/dL Supine 8:00 - 10:00 am 3 - 16 ng/dLThis test was developed and its analytical performancecharacteristics have been determined by [employer] [place], [place]. It hasnot been cleared or approved by the U.S. Food and DrugAdministration. This assay has been validated pursuantto the CLIA regulations and is used for clinicalpurposes.THIS TEST WAS PERFORMED AT:[facility].at [address] [address]NUQQZMTFERMÍN CHEUNG MD,PHD 11/06/2024 7:50 AM EST 11/06/2024 7:56 AM EST Generic External Data Provider LAB BLOOD ORDERAB LES Final Result Performing Organization Address [facility] Co de Phone Number [facility] [address] [place] [phone] * Plasma Renin Activity, LC/MS/MS (11/06/2024 7:50 AM EST) [facility] Plasma Renin Activity, LC/MS/MS 0.85 0.25 - 5.82 ng/mL/h [facility] Comment:This test was develo ped and its analytical performancecharacteristics have been determined by [employer] [place], [place]. It hasnot been cleared or approved by the U.S. Food and DrugAdministration. This assay has been validated pursuantto the CLIA regulations and is used for clinicalpurposes.THIS TEST WAS PERFORMED AT:[facility]Y[address] [place] [address]KWEGSSMFERMÍN CHEUNG MD,PHD 11/06/2024 7:50 AM EST 11/06/2024 7:56 AM EST Generic External Data Provider LAB BLOOD ORDERAB LES Final Result Performing Organization Address [facility]/ZIP Co de Phone Number [facility] [address] [place] [phone] * DHEA Sulfate (11/06/2024 7:50 AM EST) [facility] DHEA Sulfate 74 5 - 167 mcg/dL [facility] Comment:THIS TEST WAS PERFOR MED AT:[facility] [address] [address]MGIZQSHADE CALIX MD 11/06/2024 7:50 AM EST 11/06/2024 7:56 AM EST Generic External Data Provider LAB BLOOD ORDERAB LES Final Result Performing Organization Address [facility] de Phone Number [facility] [address] [place] [phone] * (ABNORMAL) Basic Metabolic Panel (11/06/2024 7:50 AM EST) [facility] Sodium 142 135 - 145 mmol/L [facility] Potassium 4.0 3.3 - 5.1 mmol/L [facility] Chloride 109(H) 96 - 108 mmol/L [facility] Carbon Dioxide 25 22 - 29 mmol/L [facility] Anion Gap 12 12 - 20 [facility] Urea Nitrogen (BUN) 23(H) 9 - 16 mg/dL [facility] Creatinine, Serum 0.75 0.5 - 1.4 mg/dL [facility] Estimated Glomerular Filt Rate >60 [facility] Comment:Chronic Kidney Disea se: Estimated GFR < 60 mL/min/1.31i4Sfajxj Kidney Disease: Estimated GFR < 15 mL/min/1.73m2 Glucose 75 60 - 115 mg/dL [facility] Calcium 9.8 8.4 - 10.2 mg/dL [facility] 11/06/2024 7:50 AM EST 11/06/2024 7:56 AM EST us Generic External Data Provider LAB BLOOD ORDERAB LES Final Result [facility] [address] [place] [phone] * (ABNORMAL) Lipid Panel, Standard (07/08/2024 9:02 AM EDT) Triglycerides 101 <150 mg/dL [facility] Comment:Desirable Triglyceri de: less than 150 mg/dLBorderline High Triglyceride 150-199 mg/dLHigh Triglyceride: 200-499 mg/dLVery High Triglyceride: greater than or equal to 5OO mg/dL Cholesterol 184 <200 mg/dL [facility] Comment:Desirable Cholestero l: less than 200 mg/dLBorderline High Cholesterol: 200-239 mg/dLHigh Cholesterol: greater than 239 mg/dL LDL Cholesterol Calculated 128(H) <100 mg/dL [facility] Comment:Desirable LDL: less than 100 mg/dLNear Optimal/Above Optimal LDL: 110- 129 mg/dLBorderline High LDL: 130-159 mg/dLHigh LDL: 160-189 mg/dLVery High LDL: greater than or equal to 190 mg/dL HDL Cholesterol 36(L) >40 mg/dL [facility] Comment:Desirable HDL: great er than 40 mg/dL Note: This HDL assay may give artificially low results in patients with liver disease. Blood Venous blood specimen / Unknown 07/08/2024 9:02 AM EDT 07/08/2024 9:02 AM EDT Alvina Mccartney MD LAB BLOOD ORDERABLES Final Result [facility] [address] [place] [phone] * POCT HGB A1C (07/05/2024 10:53 AM EDT) Hemoglobin A1C 5.9 4.0 - 6.0 % QC Media Lot # [id number] Lot# Expiration Date [id number] Blood 07/05/2024 10:5 3 AM EDT Alvina Mccartney MD POINT OF CARE TEST ENTER/E DIT ORDERABLES Final Result * Hm Colonoscopy (04/04/2024) Colonoscopy Normal Normal 04/04/2024 Historical Provider HEALTH MAINTENANCE Final Result * BI Mammogram Screening Tomosynthesis Bilateral (12/01/2023 2:40 PM EST) Anatomical Region Laterality Modality Breast Bilateral Mammography 12/01/2023 2:40 PM EST Narrative 12/23/2023 9:55 PM EST ? [facility] ? [address] ?[place] [address] ? Mammography Report ? Signed ? Patient: Paulo,Lety ?MR#: [id number] ?? 1571 ? : 1970 ?Acct:[id number] ? Age/Sex: 53 / F ?ADM Date: /31/24 ? Loc: HO.MAMMO ? Attending Dr: Alvina Mccartney MD ? Ordering Physician: Alvina Mccartney MD ?Results: 2B ?? enign Findings ? Date of Service: 12/01/23 ?Follow Up: 1 Year From Orig ?? inal Mammogram ? Procedure(s): MM tomosynthesis screening BI ?? Accession Number(s): [id number] ? cc: Alvina Mccartney MD ? EXAMINATION: [...] MD in OV> ? 12/23/232151 ? DD/ 1440 ? TD/TT: ? Rehabilitation Services Director: ? Procedure Note Donmatthew, Image - 12/23/2023 [facility] [address] [place] [address] Mammography Report Signed Patient: Leidy BatesnMR#: [id number] 1571 : 1970Acct:[id number] Age/Sex: 53 / FADM Date: 12/01/23 Loc: HO.MAMMO Attending Dr: Alvina Mccartney MD Ordering Physician: Alvina Mccartney MDResults: 2B enign Findings Date of Service: 12/01/23Follow Up: 1 Year From Orig inal Mammogram Procedure(s): MM tomosynthesis screening BI Accession Number(s): [id number] cc: Alvina Mccartney MD EXAMINATION: MM SCREENING [...] in OV> 12/23/23 2152 DD/ 1440 TD/TT: Rehabilitation Services Director: Alvina Mccartney MD IMG BI PROCEDURES Edited R esult - Final * Hepatitis C Ab (07/29/2023 9:23 AM EDT) Pathologist [facility] Hepatitis C Antibody Nonreactive Nonreactive [facility] Comment:Antibodies to HCV no t detected; does not exclude early acuteHCV infection. Blood 07/29/2023 9:23 AM EDT 07/29/2023 11:00 AM EDT Alvina Mccartney MD LAB BLOOD ORDERABLES Final Result [facility] [address] [place] [phone] * HPV mRNA E6/E7 w/Reflex to HPV Genotypes 16, 18/45 (07/26/2023 10:57 AM EDT) HPV nRNA E6/E7 Not Detected Not Detected [facility] Comment:Methodology: Transcr iption-Mediated AmplificationThis assay detects E6/E7 viral messenger RNA (mRNA) from 14high-risk HPV types (16,18,31,33,35,39,45,51,52,56,58,59,66,68).Cervical sources are required for HPV testing.If a vaginal source from a patient who has had atotal hysterectomy with removal of cervix wassubmitted, please contact the testing laboratoryfor alternative testing options.For additional information, please refer tohttp://education.Stkr.it/faq/QAJ785j9(This link if provided for information/educational purposes only.)THIS TEST WAS PERFORMED AT:[facility] | [facility] [employer] [place] [id number] CALIX MD HPV mRNA E6/E7 TNP [facility] HPV 16 RNA TNP [facility] HPV 18/45 RNA TNP [facility] 07/26/2023 10:5 7 AM EDT 07/27/2023 9:00 AM EDT us Alvina Mccartney MD LAB CYTOLOGY ORDERABLES Fi nal Result [facility] [address] [place] [phone] * Pap Smear (07/26/2023 10:57 AM EDT) 07/26/2023 10:5 7 AM EDT 07/27/2023 9:00 AM EDT Narrative [facility] - 08/02/2023 1:35 PM EDT ----- ------- Name: Lety Bates ? Age/Sex: 53/F ? : 1970 Unit#: [id number] ?? Attend Dr: Alvina Mccartney MD ?Re07/26/23 ?Status: DEP REF ? Location: HO.HHCLNP ? Disch: ? ----- ------- SPEC : [id number] ?RECD: 07/27/23 ? STATUS: ??SOUT ? REQ NUM: [id number] ? AMANDA: 07/26/23 ? SUBM DR: Alvina Mccartney MD ? [...] 66, 68) ?? HPV testing performed by [employer], [place], [place]. ??See reference laboratory ?? pion of the EMR for entire report. ?Clinical Information LMP: Unknown date Previous PAP test: Unknown date/findings ? Material Received ?? ThinPrep-Vaginal/Cervical ----- ------- Signed (signature on file) JUSTIN Arambula (ASCP) 08/02/23 9277 ? ----- ------- ? END OF REPORT ? 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 Advance Directives and Living Will 07/07/2024 1:01 PM Health Care Proxy Care Teams Blood Bank Laboratory Professional Relationship Specialty Start Date End Date [place], [place] Alvina [address] [place] [address] PCP - General Family Medicine 11/01/18 Riky Tanner [address] [place] [address] Cardiology 10/03/24 Mariella Mcdonnell [address] [phone] 10/11/24 Jina Vences MD [address] [place] [address] Endocrinology 11/05/24 Shadia Morocho PA [address] [place] [address] Orthopaedic Surgery 11/07/24 Kendall Bates MD [address] [place] [address] General Surgery 11/28/24"
--- OUTSIDE RECORDS SUMMARY | 2024-12-14 14:57 | XMS_ITS | Encounter Summary ---
Author Organization [employer] Address 75 [facility] 7t [place] [address] Care Team Providers Care Math Instructor Name Role Phone Alvina Mccartney MD Primary Care Provider [phone]- [phone] Riky Tanner Unavailable Mariella Mcdonnell Unavailable [phone] Jina Vences MD Unavailable Shadia Morocho Unavailable Encounter Details Date Type Department Care Team (Late st Contact Info) Description 11/09/2024 Orders Only [facility] External Provider, [facility] Adrenal nodule (CMS/HCC) (Primary Dx) Social History [...] EST Office Visit [facility] MED[facility]INE [address] [place] [address] Alvina Mccartney MD [address] [place], [place] [phone] documented as of this encounter Procedures Procedure Name Priority Date/Time Associated Diagnosis Comments CT ABDOMEN PELVIS WO CONTRAST Routine 11/09/2024 4:44 PM EST documented in this encounter Results * CT Abdomen Pelvis w/o Contrast (11/09/2024 4:44 PM EST) Anatomical Region Laterality Modality Body, Pelvis, Abdomen Computed T omography 11/09/2024 4:44 PM EST Narrative 11/13/2024 1:20 PM EST ? [facility] ?[address] ?[place] [address] ? CT Scan Report ? Signed ? Patient: Paulo,Lety ?MR#: [id number] ?? [id number] ? : 1970 ?Acct:[id number] ? Age/Sex: 54 / F ?ADM Date: 01/09/25 ? Loc: HO.CT ? Attending Dr: Kendall Bates MD ? Ordering Physician: Kendall Bates MD ?? Date of Service: 11/09/24 ?? Procedure(s): CT abdomen pelvis wo IV con ?? Accession Number(s): [id number] ? cc: Alvina Mccartney MD; Kendall Bates MD ? Report Number: ?? [id number]: Total DLP = ??506.00 mGy-cm ?? EXAMINATION: [...] DD/ 1644 ? TD/TT: 11/09/24 1651 ? Ski Instructor: ? Procedure Note Lesa, Image - 11/13/[address] [address] [place] Scan Report Signed Patient: Leidy BatesnMR#: [id number] : 1970Acct:[id number] Age/Sex: 54 / FADM Date: 11/09/24 Loc: HO.CT Attending Dr: Kendall Bates MD Ordering Physician: Kendall Bates MD Date of Service: 11/09/24 Procedure(s): CT abdomen pelvis wo IV con Accession Number(s): [id number] cc: Alvina Mccartney MD; Kendall Bates MD Report Number: [id number]: Total DLP = 506.00 mGy-cm EXAMINATION: CT [...] 11/13/24 1317 DD/ 1644 TD/TT: 11/09/24 1651 Ski Instructor: [facility] External Provider IMG CT PROCEDURES Final [...] documented as of this encounter Care Teams Math Instructor Relationship Specialty Start Date End Date Alvina Mccartney MD [address] [place] [address] PCP - General Family Medicine 11/01/18 Riky Tanner 11 [facility] 3rd [place] [address] Cardiology 10/03/24 Mariella Mcdonnell [address] [address] 10/11/24 Jina Vences MD [address] [place] [address] Endocrinology 11/05/24 Shadia Morocho PA 10 [facility] [address] [place] [address] Orthopaedic Surgery 11/07/24 documented as of this encounter
--- OUTSIDE RECORDS SUMMARY | 2024-12-14 14:57 | XMS_ITS | Encounter Summary ---
Author Organization [employer] Address 75 [facility] 7t [place] [address] Care Team Providers Care Rim Turning Finisher Name Role Phone Alvina Mccartney MD Primary Care Provider [phone]- [phone] Riky Tanner Unavailable Mariella Mcdonnell Unavailable [phone] Jina Vences MD Unavailable Shadia Morocho Unavailable Kendall Bates MD Unavailable [phone] Reason for Visit * Reason Comments Med Refill Encounter Details Date Type Department Care Team (Late st Contact Info) Description 12/01/2024 Refill [facility] MEDICINE 230 [place], [place] [phone] Alvina Mccartney MD 230 [place], [place] [phone] Pain Social History Tobacco Use Types Packs/Day [...] Description 01/01/2025 9:45 AM EST Office Visit [facility] MEDICINE [address] [place] [address] Alvina Mccartney MD [address] [place] [address] documented as of this encounter Visit Diagnoses [...] documented as of this encounter Care Teams Rim Turning Finisher Relationship Specialty Start Date End Date Alvina Mccartney MD [address] [place] [address] PCP - General Family Medicine 11/01/18 Riky Tanner [address] [place] [address] 3rd [place] [address] Cardiology 10/03/24 Mariella Mcdonnell 36[address] [facility] [address] [place] [address] 10/11/24 Jina Vences MD [address] [place] [address] Endocrinology 11/05/24 Shadia Morocho PA [address] [place] [address] Orthopaedic Surgery 11/07/24 Kendall Bates MD [address] 3rd [place] [address] General Surgery 11/28/24 documented as of this encounter
--- OUTSIDE RECORDS SUMMARY | 2024-12-14 14:57 | XMS_ITS | Encounter Summary ---
Author Organization [employer] Address 75 [facility] 7t [place] [address] Care Team Providers Care Dope Mixer Name Role Phone Alvina Mccartney MD Primary Care Provider [phone]- [phone] Riky Tanner Unavailable Mariella Mcdonnell Unavailable Jina Vences MD Unavailable Shadia Morocho Unavailable Kendall Bates MD Unavailable Encounter Details Date Type Department Care Team (Late st Contact Info) Description 12/01/2024 Refill [facility] MEDICINE 230 [place], [place] [phone] Alvina Mccartney MD [address] [place], [place] [phone] Pain Social History Tobacco Use Types Packs/Day Years Used Date Smoking Tobacco: Never Passive Smoke Exposure: Never Smokeless Tobacco: Never Alcohol Use Standard Drinks/Week Comments Never 0 (1 standard drink = 0.6 oz pur e alcohol) Depression Answer Date Recorded Patient Health Questionnaire-9 Score 8 07/26/2023 Housing Stability Answer Date Recorded What is your housing situation today? I have ayzmin saldaña 08/26/[address] you [...] EST Office Visit [facility] MEDICINE [address] [place] [address] Alvina Mccartney MD [address] [place] [address] documented as of this encounter Visit Diagnoses [...] documented as of this encounter Care Teams Dope Mixer Relationship Specialty Start Date End Date Alvina Mccartney MD [address] [place] [address] PCP - General Family Medicine 11/01/18 Riky Tanner [address] 3rd [place] [address] Cardiology 10/03/24 Mariella Mcdonnell [address] [address] 10/11/24 Jina Vences MD [address] [place] [address] Endocrinology 11/05/24 Shadia Morocho PA [address] [place] [address] Orthopaedic Surgery 11/07/24 Kendall Bates MD [address] 3rd [place] [address] General Surgery 11/28/24 documented as of this encounter
== END 2024-12-14 15:17 | disposition home or self-care (01) ==
LOC: HO.HOS 14:55
PROVIDERS: PCP Family Medicine; Visit Provider Physician Assistant
DX: M17.12 Unilateral primary osteoarthritis, left knee (principal)
CPT/HCPCS: 98016

== ENCOUNTER 2025-01-03 08:47 | Outpatient (AMB) | payer OTHER, SELFPAY ==
--- NOTE | 2025-01-03 09:01 | A.OFFVIS_ITS ---
Vital Signs 01/03/25 09:07 Height 5 ft 3 in Weight 173 lb BMI 30.6 Intake Visit Reasons: inj-LT knee, last inj 07/21/23 Intake Note: Lety a 54 year old female who presents today for a follow up of left knee, last injection on 07/21/23. Patient was last seen for an MRI review and would like to move forward with a left knee injection. Family Welfare Social Work Professor Required: Yes Family Welfare Social Work Professor Services: Family Welfare Social Work Professor Present Family Welfare Social Work Professor Name: Kamla ID#[id number] Allergies No Known Allergies Allergy (Verified 01/03/25 09:06) HPI HPI inj-LT knee, last inj 07/21/23: Details: 54-year-old female returns to the office today for ongoing left knee pain. She has relief with the injections however her pain does return and is worse with prolonged standing bending kneeling and stair climbing. [facility] Medical History Adrenal incidentaloma Back pain Pre-diabetes GERD (gastroesophageal reflux disease) Fibromyalgia Bipolar disorder Insomnia Anxiety Depression Syncope Mild intermittent asthma NAFLD (nonalcoholic fatty liver disease) Vertigo Sleep apnea IBS (irritable bowel syndrome) Arthritis HTN (hypertension) Surgical History History of umbilical hernia repair (~11/14/24) Hx of colonoscopy History of esophagogastroduodenoscopy (EGD) History of hysterectomy Family History Father Diabetes Arthritis Hypertension Hypercholesteremia Cancer Mother Diabetes Hypertension Arthritis Cancer Son Asthma Son Asthma Heart problem Social History Are you a primary care support representative to a significant other at home: No Do you presently have visiting nurse or other home services: No Alcohol intake: never Patient Tobacco Use Status: Never used Tobacco Current occupational status: retired Review of Systems Const All systems reviewed & are unremarkable except as noted in HPI and below Physical Exam Vital Signs: BMI result Body Mass Index 30.6 Const General: cooperative and no acute distress Orientation/consciousness: patient oriented x3 Resp Effort & Inspection: normal respiratory effort and able to speak in complete sentences Cardio Peripheral pulses: Peripheral pulses 2+ throughout Neuro General: patient oriented x3 Extrem Other: Left knee: Skin intact, no erythema or joint effusion. Lateral retropatellar tenderness present. Full ROM with crepitus. Positive Max?s. No ligamentous laxity. NVI. Office Procedures AMB Joint Injection/Aspiration Joint Injection/Aspiration Primary Site: left knee Prep: site was prepped using aseptic technique, ethochloride spray was applied and injection warnings given Injected: 40 mg of, DepoMedrol, with 8 mL of, 1% plain lidocaine and in the joint Approach Used: anterolateral Procedure: The patient tolerated the procedure well and there was some relief with the local anesthesia Coding 49503 - Glenohumeral/Tronchanteric Bursa/Intraarticular Procedure code (CPT) selection complete Results Reviewed Results Reviewed: MR knee LT wo con IMPRESSION: 1. Moderate joint effusion. 2.0 cm probable ganglion cyst posterior to the medial tibial plateau. 3. Moderate patellofemoral osteoarthritis. Mild osteoarthritis of the medial compartment. Assessment & Plan Assessment & Plan (1) Patellofemoral arthralgia of left knee: Code(s): M25.562 - Pain in left knee Category: Medical Plan: We discussed options today which include physical therapy and a cortisone injection. She did consent to proceed with left knee steroid injection which she tolerated well. An order was placed for physical therapy to work on range of motion, glute hip hamstring and quad strengthening. She was also fit for a Genumed knee brace for patellar stability. If symptoms persist or worsen she will contact our office otherwise follow up as needed. Coding Level of Care Code Est Pt Level 3 (87562) Complex EM visit Add On G2211 Diagnoses Patellofemoral arthralgia of left knee M25.562 CPT Codes Coding - Joint 7: 20883 - Glenohumeral/Tronchanteric Bursa/Intraarticular ([id number])
[2025-01-03 09:07] VITALS: BMI 30.6
--- OUTSIDE RECORDS SUMMARY | 2025-01-03 09:32 | XMS_ITS | Encounter Summary ---
Author Organization [employer] Address 75 [facility] 7t [place] [address] Care Team Providers Care Manager Marketing Name Role Phone Alvina Mccartney MD Primary Care Provider [phone]- [phone] Riky Tanner Unavailable Mariella Mcdonnell Unavailable Jina Vences MD Unavailable Shadia Morocho Unavailable Kendall Bates MD Unavailable [phone] Encounter Details Date Type Department Care Team (Late st Contact Info) Description 12/03/2022 Abstract [facility] MEDICINE 230 [place], [place] [phone] Alvina Mccartney MD [address] [place], [place] [phone] Social History Tobacco Use Types Packs/Day Years [...] as of this encounter Plan of Treatment Not on file documented as of this encounter Procedures Procedure Name Priority Date/Time Associated Diagnosis Comments HM MAMMOGRAPHY Routine 11/16/2021 COLONOSCOPY Routine 08/21/2019 documented in this encounter Results * Mammography (11/16/2021) HM Mammogram BIRADS 2 Anatomical Region Laterality Modality Other us Historical Provider HEALTH MAINTENANCE Final Result * Colonoscopy (08/21/2019) Colonoscopy hyperplastic polyp Dr. Mendez us Historical Provider HEALTH MAINTENANCE Final Result documented in this encounter Visit Diagnoses Not on filedocumented in this encounter Care Teams Manager Marketing Relationship Specialty Start Date End Date Alvina Mccartney MD 230 [place] [address] PCP - General Family Medicine 11/01/18 Riky Tanner [address] 3rd [place] [address] Cardiology 10/03/24 Mariella Mcdonnell [address] [address] Sleep Medicine 10/11/24 Jina Vences MD [address] [place] [address] Endocrinology 11/05/24 Shadia Morocho PA [address] [place] [address] Orthopaedic Surgery 11/07/24 Kendall Bates MD 11 [facility] 3rd [place] [address] General Surgery 11/28/24 documented as of this encounter
--- OUTSIDE RECORDS SUMMARY | 2025-01-03 09:32 | XMS_ITS | Encounter Summary ---
Author Organization [employer] Address 75 [facility] 7t [place] [address] Care Team Providers Care Field Talent Qualification Specialist Name Role Phone Alvina Mccartney MD Primary Care Provider [phone]- [phone] Riky Tanner Unavailable Mariella Mcdonnell Unavailable [phone] Jina Vences MD Unavailable Shadia Morocho Unavailable Kendall Bates MD Unavailable [phone] Encounter Details Date Type Department Care Team (Late st Contact Info) Description 04/22/2023 Orders Only [facility] MEDICINE 230 [place], [place] [phone] Alvina Mccartney MD 230 [place], [place] [phone] Dizzy (Primary Dx) Social History Tobacco Use [...] on file documented as of this encounter Visit Diagnoses Diagnosis Dizzy- Primary Dizziness and giddiness documented in this encounter Care Teams Field Talent Qualification Specialist Relationship Specialty Start Date End Date Alvina Mccartney MD 230 [place] [address] PCP - General Family Medicine 11/01/18 Riky Tanner [address] 3rd [place] [address] Cardiology 10/03/24 Mariella Mcdonnell [address] [address] Sleep Medicine 10/11/24 Jina Vences MD [address] [place] [address] Endocrinology 11/05/24 Shadia Morocho PA [address] [place] [address] Orthopaedic Surgery 11/07/24 Kendall Bates MD 11 [facility] 3rd [place] [address] General Surgery 11/28/24 documented as of this encounter
--- OUTSIDE RECORDS SUMMARY | 2025-01-03 09:32 | XMS_ITS | Encounter Summary ---
Author Organization [employer] Address 75 [facility] 7t [place] [address] Care Team Providers Care Voice Systems Engineer Name Role Phone Alvina Mccartney MD Primary Care Provider [phone] Riky Tanner Unavailable Mariella Mcdonnell Unavailable [phone] Jina Vences MD Unavailable Shadia Morocho Unavailable Kendall Bates MD Unavailable [phone] Reason for Visit * Reason Comments Med Refill Encounter Details Date Type Department Care Team (Late st Contact Info) Description 06/05/2024 Refill [facility] MEDICINE 230 [place], [place] [phone] Alvina Mccartney MD 230 [place], [place] [phone] Pain Social History Tobacco Use Types Packs/Day [...] encounter Visit Diagnoses Diagnosis Pain Generalized pain documented in this encounter Additional Health Concerns Assessment Noted Time PHQ-9 Depression Total Score: 8 07/26/20 23 10:55 AM EDT documented as of this encounter Care Teams Voice Systems Engineer Relationship Specialty Start Date End Date Alvina Mccartney MD 230 [place] [address] PCP - General Family Medicine 11/01/18 Riky Tanner [address] [place] [address] 3[address] [place] [address] Cardiology 10/03/24 Mariella Mcdonnell [address] [address] Sleep Medicine 10/11/24 Jina Vences MD [address] [place] [address] Endocrinology 11/05/24 Shadia Morocho PA [address] [place] [address] Orthopaedic Surgery 11/07/24 Kendall Bates MD [address] 3rd [place] [address] General Surgery 11/28/24 documented as of this encounter
--- OUTSIDE RECORDS SUMMARY | 2025-01-03 09:32 | XMS_ITS | Encounter Summary ---
Author Organization [employer] Address 75 [facility] 7t [place] [address] Care Team Providers Care Referral Agent Name Role Phone Alvina Mccartney MD Primary Care Provider [phone] Riky Tanner Unavailable Mariella Mcdonnell Unavailable [phone] Jina Vences MD Unavailable Shadia Morocho Unavailable Kendall Bates MD Unavailable Reason for Visit * Reason Comments Med Refill Encounter Details Date Type Department Care Team (Late st Contact Info) Description 12/27/2024 Refill [facility] MEDICINE 230 [place], [place] [phone] Alvina Mccartney MD 230 [place], [place] [phone] Pain Social History Tobacco Use Types Packs/Day [...] documented as of this encounter Care Teams Referral Agent Relationship Specialty Start Date End Date Alvina Mccartney MD 230 [place] [address] PCP - General Family Medicine 11/01/18 Riky Tanner [address] [place] [address] 3[address] [place] [address] Cardiology 10/03/24 Mariella Mcdonnell [address] [address] Sleep Medicine 10/11/24 Jina Vences MD [address] [place] [address] Endocrinology 11/05/24 Shadia Morocho PA [address] [place] [address] Orthopaedic Surgery 11/07/24 Kendall Bates MD [address] 3rd [place] [address] General Surgery 11/28/24 documented as of this encounter
--- OUTSIDE RECORDS SUMMARY | 2025-01-03 09:32 | XMS_ITS | Encounter Summary ---
Author Organization [employer] Address 75 [facility] 7t [place] [address] Care Team Providers Care Cert Occupational Therapy Asst Name Role Phone Alvina Mccartney MD Primary Care Provider [phone] Riky Tanner Unavailable Mariella Mcdonnell Unavailable [phone] Jina Vences MD Unavailable Shadia Morocho Unavailable Kendall Bates MD Unavailable [phone] Encounter Details Date Type Department Care Team (Latest Contact Info) Description 01/01/2025 Travel Social History Tobacco Use Types Packs/Day Years Used Date Smoking Tobacco: Never Passive Smoke Exposure: Never Smokeless Tobacco: Never Alcohol Use Standard Drinks/Week Comments Never 0 (1 standard drink = 0.6 oz pur e alcohol) Depression Answer Date Recorded Patient Health Questionnaire-9 Score 17 01/01/2025 Patient Health Questionnaire-9 Score 17 01/01/2025 Last PHQ-9: Questionnaire Data Not on file 0 01/01/2025 Housing Stability Answer Date Recorded What is your housing situation today? I have yazmintoya saldaña 01/01/[address] you li ve. Do you have problems with any of the following? None of the above 01/01/2025 Food Insecurity Answer Date Recorded Within the past 12 months, y ou worried that your food would run out before you got money to buy more: Never True 01/01/2025 Within the past 12 months,th e food you bought just didn't last and you didn't have enough money to get more: Never True 12/2024 Transportation Answer Date Recorded In the past 12 months, has l ack of transportation kept you from medical appts, meetings, work or from getting things needed for daily living? No 01/01/2025 Utilities Answer Date Recorded In the past 12 months, has t he electric, gas, oil or water company threatened to shut off services in your home? No 01/01/2025 Depression Answer Date Recorded Patient Health Questionnaire-2 Score 6 01/01/2025 Internet Access Answer Date Recorded Internet Access Q1 No 01/01/2025 Internet Access Q2 Not on file 01/01/2025 Comments Unknown Sex and Gender Information Value [...] Assessment Noted Time PHQ-9 Depression Total Score: 17 025 9:49 AM EST documented as of this encounter Care Teams Cert Occupational Therapy Asst Relationship Specialty Start Date End Date Alvina Mccartney MD 230 [place] [address] PCP - General Family Medicine 11/01/18 Riky Tanner [address] 3rd [place] [address] Cardiology 10/03/24 Mariella Mcdonnell [address] [address] Sleep Medicine 10/11/24 Jina Vences MD [address] [place] [address] Endocrinology 11/05/24 Shadia Morocho PA [address] [place] [address] Orthopaedic Surgery 11/07/24 Kendall Bates MD [address] 3rd [place] [address] General Surgery 11/28/24 documented as of this encounter
--- OUTSIDE RECORDS SUMMARY | 2025-01-03 09:32 | XMS_ITS | Encounter Summary ---
Author Organization [employer] Address 75 [facility] 7t [place] [address] Care Team Providers Care Sales Solutions Representative Name Role Phone Alvina Mccartney MD Primary Care Provider [phone] Riky Tanner Unavailable Mariella Mcdonnell Unavailable [phone] Jina Vences MD Unavailable Shadia Morocho Unavailable Kendall Bates MD Unavailable Reason for Visit * Reason Comments Med Refill Encounter Details Date Type Department Care Team (Late st Contact Info) Description 12/01/2024 Refill [facility] MEDICINE 230 [place], [place] [phone] Alvina Mccartney MD 230 [place], [place] [phone] Pain Social History Tobacco Use Types Packs/Day [...] documented as of this encounter Care Teams Sales Solutions Representative Relationship Specialty Start Date End Date Alvina Mccartney MD 230 [place] [address] PCP - General Family Medicine 11/01/18 Riky Tanner [address] [place] [address] 3rd [place] [address] Cardiology 10/03/24 Mariella Mcdonnell [address] [address] Sleep Medicine 10/11/24 Jina Vences MD [address] [place] [address] Endocrinology 11/05/24 Shadia Morocho PA [address] [place] [address] Orthopaedic Surgery 11/07/24 Kendall Bates MD [address] 3rd [place] [address] General Surgery 11/28/24 documented as of this encounter
--- OUTSIDE RECORDS SUMMARY | 2025-01-03 09:32 | XMS_ITS ---
Author Name MS. Aba Kirkpatrick APRN Address [address] [place] [address] Phone [phone] [facility] Care Team Providers Care Disaster Or Damage Control Specialist Name Role Phone Debbie Kirkpatrick Unavailable [phone] Unavailable Unavailable Unavailable DOROTHEA NEAL Unavailable [phone] Carina Baird Unavailable Unavailable Reason for Referral Not Available [...] Tab TAKE 1 TABLET BY JOSE TH AT BEDTIME 2024-02-15 No Data Available Fluticasone [...] Active 2023-10-05 N/A Other problems related to [facility] facilities and other health care Active 2024-04-25 N/A Encounters Encounters Type Facility Date of Service Diagnosis/Co mplaint New patient, 30-44min 1 stable chronic or 2 minor; add modifier 95 for video, modifier [address] [facility], ([place]) 10/05/2023 Major depressive disorder, recurrent, mildInsomnia, unspecifiedGeneralized anxiety disorderGastro-esophageal reflux disease without esophagitisDizziness and giddinessEssential (primary) hypertensionNeuralgia and neuritis, unspecifiedVitamin D deficiency, unspecifiedMild intermittent asthma, uncomplicated New patient, 30-44min 1 stable chronic or 2 minor; add modifier 95 for video, modifier [address] [facility]20[place] New patient, 30-44min 1 stable chronic or 2 minor; add modifier 95 for video, modifier [address] [facility] New patient, 30-44min 1 stable chronic or 2 minor; add modifier 95 for video, modifier [address] [facility]20[place] New patient, 30-44min 1 stable chronic or 2 minor; add modifier 95 for video, modifier [address] [facility] New patient, 30-44min 1 stable chronic or 2 minor; add modifier 95 for video, modifier [address] [facility] Estab. patient 30-39min; chronic exacerbation, 2 stable chronic or 1 acute illness add add modifier 95 for video, (do not use for phone, instead use [id number]) [facility] Major depressive disorder, recurrent, mildInsomnia, unspecifiedGeneralized anxiety disorderGastro-esophageal reflux disease without esophagitisDizziness and giddinessEssential (primary) hypertensionNeuralgia and neuritis, unspecifiedVitamin D deficiency, unspecifiedMild intermittent asthma, uncomplicatedOther problems related to medical facilities and other health care Estab. patient 30-39min; chronic exacerbation, 2 stable chronic or 1 acute illness add add modifier 95 for video, (do not use for phone, instead use 41214-15) [facility] [place] 04/25/20[place] Estab. patient 30-39min; chronic exacerbation, 2 stable chronic or 1 acute illness add add modifier 95 for video, (do not use for phone, instead use 40563-40) [facility] Estab. patient 30-39min; chronic exacerbation, 2 stable chronic or 1 acute illness add add modifier 95 for video, (do not use for phone, instead use [id number]) [facility] Estab. patient 30-39min; chronic exacerbation, 2 stable chronic or 1 acute illness add add modifier 95 for video, (do not use for phone, instead use [id number]) [facility] Estab. patient 30-39min; chronic exacerbation, 2 stable chronic or 1 acute illness add add modifier 95 for video, (do not use for phone, instead use 50959-48) [facility] Estab. patient 30-39min; chronic exacerbation, 2 stable chronic or 1 acute illness add add modifier 95 for video, (do not use for phone, instead use 36831-80) [facility] Estab. patient 30-39min; chronic exacerbation, 2 stable chronic or 1 acute illness add add modifier 95 for video, (do not use for phone, instead use 64697-92) [facility] Estab. patient 30-39min; chronic exacerbation, 2 stable chronic or 1 acute illness add add modifier 95 for video, (do not use for phone, instead use [id number]) [facility]20[place] Unlisted special service; to be used for medical record reviews and reporting CPTII codes (1111F, etc) [facility]2024 Other specified health statu s Unlisted special service; to be used for medical record reviews and reporting CPTII codes (1111F, etc) [facility] [place] Unlisted special service; to be used for medical record reviews and reporting CPTII codes (1111F, etc) [facility] [place]20[place] Vital Signs Date of [...] tive Time Current Smoking Status Never smoker 5 Sex Female History of Procedures Procedures Service Procedure code Service date Servicing provider Phone# New patient, 30-44min 1 stable chronic or 2 minor; add modifier 95 for video, modifier 93 for phone [id number] 2023-10-05 No Data Available No Data Available [...] (do not use for phone, instead use [id number]) [id number] 2024-04-25 No Data Available No Data Availa [...] reviews and reporting CPTII codes (1111F, etc) 87619 2024-09-04 No Data Available No Data Availa ble SBP < 130 (3074F) 3074F 2024-09-04 No Data Available No Data Available DBP <80 (3078F) 3078F 2024-09-04 No Data Available No Data Available Functional Status Functional Category Effective Dates [employer] assists with cooking, cl eaning, laundry, showering and dressing. Pt reports using assistive device of cane. 2023-10-05 Instrumental Activities of Daily Living (4): 2024-04-25 Medication: Independent 2024-04-25 Meal Preparation Needs Assistance 04-25 Shopping: Needs Assistance 2024-04-25 Driving/Using Public Transportation: Nee ds Assistance 2024-04-25 Housework/Cleaning: Needs Assistance 02-04-25 Laundry: Needs Assistance 2024-04-25 Handling Finances: Independent 2024-04-02 5 Activities of Daily Livin2024-04-25 Bathing: Needs Assistance [...] Contact mental health professional:/ Transfer member to [address] [place] [address]/ Hydroxyzine (Vistaril) 25mg PO q6h PRN anxiety/ [...]
--- OUTSIDE RECORDS SUMMARY | 2025-01-03 09:32 | XMS_ITS | Encounter Summary ---
Author Organization [employer] Address [address] [place] [address] Care Team Providers Care Associate Professor Name Role Phone Alvina Mccartney MD Primary Care Provider Riky Tanner Unavailable Mariella Mcdonnell Unavailable [phone] Jina Vences MD Unavailable Shadia Morocho Unavailable Kendall Bates MD Unavailable [phone] Encounter Details Date Type Department Care Team (Late st Contact Info) Description 04/14/2024 Abstract [facility] [address], [place] [id number] Hayley Briscoe MA Social History Tobacco Use [...] encounter Results * Diabetes Eye Exam (04/04/2024) [facility] Eye Exam Normal Normal Comment:repeat 5 year 04/04/2024 Historical Provider HEALTH MAINTENANCE Final Result documented in this encounter Visit Diagnoses Not on filedocumented in this encounter Additional Health Concerns Assessment Noted Time PHQ-9 Depression Total Score: 8 07/26/20 23 10:55 AM EDT documented as of this encounter Care Teams Associate Professor Relationship Specialty Start Date End Date Alvina Mccartney MD [address] [place] [address] PCP - General Family Medicine 11/01/18 Riky Tanner [address] [place] [address] [address] [place] [address] Cardiology 10/03/24 Mariella Mcdonnell [address] [phone] Sleep Medicine 10/11/24 Jina Vences MD [address] [place] [address] Endocrinology 11/05/24 Shadia Morocho PA [address] [place] [address] Orthopaedic Surgery 11/07/24 Kendall Bates MD [address] [place] [address] General Surgery 11/28/24 documented as of this encounter
--- OUTSIDE RECORDS SUMMARY | 2025-01-03 09:32 | XMS_ITS | Clinical Summary ---
Author Organization [employer] Address [address] [place] [address] Care Team Providers Care Global Lead Name Role Phone Alvina Mccartney MD Primary Care Provider [phone] Riky Tanner Unavailable Mariella Mcdonnell Unavailable [phone] Jina Vences MD Unavailable Shadia Morocho Unavailable Kendall Bates MD Unavailable Allergies No known active allergies Medications amLODIPine (Norvasc) 10 MG tabletIndicatio ns:Essential hypertension TAKE 1 TABLET BY MOUTH EVERY MORNING 30 tablet 06/28/20 24 Active D3-1000 25 MCG (1000 UT) capsuleIndicati ons:Vitamin D deficiency TAKE 1 CAPSULE BY MOUTH EVERY MORNING 30 capsule 06/28/20 24 Active cetirizine (ZyrTEC) 10 MG [...] THE MORNING, EVENING, AND BEDTIME 90 capsule 12/28/19 25 Active celecoxib (CeleBREX) 200 MG capsule Take 1 capsule by mouth 2 times daily. 12/14/19 25 Active hydroCHLOROthia zide (HYDRODiuril) 25 MG tabletIndicatio ns:Essential hypertension TAKE 1 TABLET BY MOUTH EVERY MORNING 30 tablet 06/28/20 24 025 Discontinued(Di scontinued by another clinician) gabapentin (Neurontin) 300 MG capsuleIndicati ons:Pain Take 1 capsule (300 mg) by mouth 3 times daily. 90 capsule 12/03/19 25 025 Discontinued Active Problems Problem Noted Date Diagnosed Date Breast pain, left 01/01/2025 Overview (01/01/2025): Generalized right-sided breast pain. No concerning red flag symptoms. -ordered mammogram 01/01/25 Assessment & Plan (01/01/2025 5:26 PM EST): Generalized right-sided breast pain. No concerning red flag symptoms. -ordered mammogram 01/01/25 Low back pain at multiple sites 01/01/2025 Overview (01/01/2025): Chronic back pain. Likely due to fibromyalgia. -referred to acupuncture 01/01/25 -referred to pain management 01/01/25 -referred to chronic pain group 01/01/25 Assessment & Plan (01/01/2025 5:38 PM EST): Chronic back pain. Likely due to fibromyalgia. -referred to acupuncture 01/01/25 -referred to pain management 01/01/25 -referred to chronic pain group 01/01/25 Screening mammogram for breast cancer 01/01/2025 Overview (01/01/2025): -ordered mammogram 01/01/25 Assessment & Plan (01/01/2025 5:42 PM EST): -ordered mammogram 01/01/25 Overweight 12/31/2024 Overview (01/01/2025): Discussed weight, diet, exercise with patient in relation to health conditions. Used motivational interviewing to illicit change talk and established initial goals with patient. Assessment & Plan (01/01/2025 5:25 PM EST): Discussed weight, diet, exercise with patient in relation to health conditions. Used motivational interviewing to illicit change talk and established initial goals with patient. Dietary counseling 12/31/2024 Assessment & Plan (01/01/2025 5:13 PM EST): Dietary Recommendations: Fruits, vegetables, whole grains, protein foods, and fat-free or low-fat dairy products are healthy choices. Eat different types of protein foods in your diet. This can include seafood, lean meats, poultry, beans, peas, lentils, nuts, seeds, soy products, and eggs. Limit foods and beverages higher in added sugars, saturated fat, and sodium. Exercise counseling 12/31/2024 Assessment & Plan (01/01/2025 5:14 PM EST): Exercise Recommendations: At least 150 minutes of moderate-intensity physical activity per week, or an equivalent combination of moderate- and vigorous-intensity activity Chronic pain of left knee 11/07/2024 Overview (01/01/2025): -seen by Ariel Morocho PA-C of [facility] 11/07/23 -MR/MR knee LT wo con 11/14/24 IMPRESSION: Moderate joint effusion. 2.0 cm probable ganglion cyst posterior to the medial tibial plateau. Moderate patellofemoral osteoarthritis. Mild osteoarthritis of the medial compartment. -referred to pain management 01/01/25 -referred to chronic pain group 01/01/25 Assessment & Plan (01/01/2025 5:44 PM EST): -seen by Ariel Morocho PA-C of [facility] 11/07/23 -MR/MR knee LT wo con 11/14/24 IMPRESSION: Moderate joint effusion. 2.0 cm probable ganglion cyst posterior to the medial tibial plateau. Moderate patellofemoral osteoarthritis. Mild osteoarthritis of the medial compartment. -referred to pain management 01/01/25 -referred to chronic pain group 01/01/25 Neck pain 07/05/2024 Overview (07/05/2024): Pt reports [...] describing symptoms of lightheadedness when turning head [id number] which sounds more like vertigo. No clear [...] [address] scan Assessment & Plan (01/01/2025 5:25 PM EST): Incidental noted on ER CT [...] signs, recheck 1 year Hypercholesteremia 09/13/2023 Overview (01/01/2025): Lab Results Component Value Date CHOL 184 07/08/2024 CHOL 208 (H) 07/29/2023 TRIG 101 07/08/2024 TRIG 117 07/29/2023 HDL 36 (L) 07/08/2024 HDL 46 07/29/2023 LDLCHOLCAL 128 (H) 07/08/2024 LDLCHOLCAL 139 (H) 07/29/2023 -continue lifestyle modification -recommended Sulfacetamide 01/01/25 Assessment & Plan (01/01/2025 5:28 PM EST): Lab Results Component Value Date CHOL 184 07/08/2024 CHOL 208 (H) 07/29/2023 TRIG 101 07/08/2024 TRIG 117 07/29/2023 HDL 36 (L) 07/08/2024 HDL 46 07/29/2023 LDLCHOLCAL 128 (H) 07/08/2024 LDLCHOLCAL 139 (H) 07/29/2023 -continue lifestyle modification -recommended Sulfacetamide 01/01/25 Urinary incontinence 07/26/2023 Overview (01/01/2025): -followed by urology Assessment & Plan (07/26/2023 10:41 AM EDT): Referral to Urology done 07/26/2023. Other specified health status 07/21/2023 Overview (01/01/2025): -next physical exam due after 07/05/25 -eye care facilitated by [facility] -dental home is encouraged -Health care proxy given and filed 07/05/24 [...] were nml -continue Claritin Assessment & Plan (01/01/2025 5:24 PM EST): She is controlled on Adviar 550mcg BID [...] (10/20/2022 9:42 PM EST): -Previously established with [facility], last available consult note from 2018. -Referral to re-establish care with [facility] Essential hypertension 12/12/2018 Overview (10/03/2024): Followed by Dr. Riky Tanner MD at [facility]. Note from 09/2024 reviewed. -Blood pressure is at goal -Continue lifestyle modifications -Continue current medications -hydrochlorothiazide discontinued by Dr. Tanner 09/2024 Assessment & Plan (01/01/2025 5:24 PM EST): Followed by Dr. Riky Tanner MD at [facility]. Note from 09/2024 reviewed. 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 Obstructive sleep apnea syndrome 12/12/2018 Overview (10/11/2024): Followed by [facility]. Sleep study 10/07/18 reveals severe SILVER. -Currently using CPAP nightly She started 11/05/2018 -seen by CIARA Lepe on 10/09/24 continue CPAP 14 cmH2O. Supplies are though [facility] Assessment & Plan (01/01/2025 5:24 PM EST): Followed by [facility]. Sleep study 10/07/18 reveals severe SILVER. -Currently using CPAP nightly She started 11/05/2018 -seen by CIARA Lepe on 10/09/24 continue CPAP 14 cmH2O. Supplies are though [facility] Assessment & Plan (07/21/2023 1:56 PM EDT): Follow[facility] by [facility]. Sleep study 10/07/18 reveals severe SILVER. -Currently using CPAP nightly She started 11/05/2018 Allergic rhinitis 04/20/2012 Anxiety 04/20/2012 Carpal tunnel [...] episode, in partial bony ssion 04/20/2012 Overview (01/01/2025): At visit in 11/2017, we stopped depo, as we presumed was causing depression Depression has not improved, as she is being seen by psychiatrist and therapist. No SI/HI. Reports going to [facility], where she sees her specialists. Assessment & Plan (01/01/2025 5:41 PM EST): At visit in 11/2017, we stopped depo, as we presumed was causing depression Depression has not improved, as she is being seen by psychiatrist and therapist. No SI/HI. Reports going to [facility], where she sees her specialists. Assessment & [...] DISORDER WRITTEN ON 07/05/2024 10:40 AM BY KARSONAZRA MARYCARMEN At visit in 11/2017, we stopped depo, as we presumed was causing depression Depression has not improved, as she is being seen by psychiatrist and therapist. No SI/HI. Reports going to [facility], where she sees her specialists. Resolved [...] if sxs do not improve within 48h Backache 09/12/2014 01/01/2025 Asthma 04/20/2012 07/21/2023 Encounters Date Type Department Care Team Description 01/02/2025 Telephone [facility] [address] [place] [phone] Alvina Mccartney MD 01/01/2025 9:45 AM EST Office Visit [facility] [address] [place], [place] [phone] Alvina Mccartney MD Essential hypertension (Primary Dx); Fibromyalgia; Breast pain, left; Low back pain at multiple sites; Obstructive sleep apnea syndrome; Chronic pain of right knee; Screening mammogram for breast cancer; Major depression single episode, in partial remission (CMS/HCC); Overweight; Dietary counseling; Exercise counseling; Encounter for immunization; Hypercholesteremia; Mild intermittent asthma without complication; Chronic midline low back pain without sciatica; Adrenal nodule (CMS/HCC); Chronic pain of left knee 01/01/2025 Travel 12/31/2024 Travel 12/27/2024 Refill [facility] [address] [place] [phone] Alvina Mccartney MD Pain 12/25/2024 Telephone [facility] [address] [place] [phone] Alvina Mccartney MD chartprep 12/19/2024 Patient Outreach [facility] [address] [place] [phone] Alvina Mccartney MD Pre-visit Planning (Pre-visit planning - LVM ) 12/01/2024 Refill [facility] [address] [place] [phone] Alvina Mccartney MD Pain 12/01/2024 Refill [facility] [address] [place] [phone] Alvina Mccartney MD Pain 11/11/2024 Orders Only [facility] External Provider, [facility] Chronic pain of left knee (Primary Dx) 11/10/2024 Orders Only GENERIC EXTERNAL DATA DEPARTMENT Provider, Generic External Data 11/09/2024 Orders Only [facility] External Provider, [facility] Adrenal nodule (CMS/HCC) (Primary Dx) 11/09/2024 Telephone [facility] [address] [place] [phone] Berto Schroeder [place] March recall 11/06/2024 Orders Only GENERIC EXTERNAL DATA DEPARTMENT Provider, Generic External Data 11/02/2024 Refill [facility] [address] [place] [phone] Alvina Mccartney MD Pain 10/16/2024 Telephone [facility] [address] [place] [phone] Alvina Mccartney MD 10/09/2024 Telephone [facility] [address] [place] [phone] Harleen Paredes, blade grader operator Referral 10/06/2024 Telephone [facility] [address] [place] [phone] Alvina Mccartney MD Record Request 10/06/2024 Telephone [facility] [address] [facility] [facility] [place] [address] Alvina Mccartney MD 10/06/2024 Orders Only [facility] [address] [facility] [facility] [place] [address] Alvina Mccartney MD from Last 3 Months Immunizations Name Administration Dates Next Due Hep A, Adult 07/05/2024 Hep B, adult 08/10/2019,12/12/2018,08/07/2002 Influenza injectable quadriv alent IIV4 with preservative 08/11/2018,10/14/2017 Influenza injectable quadriv alent preservative free 07/26/2023,08/10/2019,09/12/2014 Influenza, Split (incl. soledad fied surface antigen) 07/28/2012 Influenza, seasonal, injecta ble, preservative free 01/01/2025 MMR 08/04/2002,07/13/1997 Moderna Covid-19 Vaccine 12+ 02/14/2021,01/18/20 21 Pneumococcal Conjugate PCV 13 12/12/2018 Pneumococcal Conjugate PCV 20 01/01/2025 Pneumococcal Polysaccharide PPSV23 10/14/2017 TD (adult), 2 [...] housing situation today? I have yazmin saldaña 01/01/[address] you [...] Sign Reading Time Taken Comments Blood Pressure 138/81 01/01/2025 9:25 AM EST Pulse 67 01/01/2025 9:25 AM EST Temperature 36.7 ??C (98 ??F) 01/01/2025 9:25 AM EST Respiratory Rate 20 01/01/2025 9:25 AM EST Oxygen Saturation 98% 01/01/2025 9:25 AM EST Inhaled Oxygen Concentration - - Weight 80.6 kg (177 lb 9.6 oz) 01/01/2025 9:25 A M EST Height 160 cm (5' 3 ) 01/01/2025 9:25 AM EST Body Mass Index 31.46 01/01/2025 9:25 AM EST Plan of Treatment Health Maintenance Due Date Last Done Comments CT Colonography 1972 FIT DNA/Cologuard 1972 FIT 1972 FOBT 1972 Sigmoidoscopy 1972 Zoster Vaccines (1 of 2) 2022 Mammogram 12/01/2024 12/01/2023, 11/01, 11/16/2021, Additional history exists Depression Monitoring (PHQ-9) 07/04/2025 01/01/2025, 01/01/2025 Diabetes: Hemoglobin A1C 07/05/2025 024, 12/27/2023, 01/18/2023 Alcohol/Substance Use Screening 01/01/2026 01/01/2025 COVID-19 Vaccine ( season) 2026 02/14/2021, 01/17/2021 Postponed from 07/02/2024 (Patient Refused) Depression Screening 01/01/2026 01/01/2025, 01/02/20 Family Planning (PISQ) 01/01/2026 01/01/2025 SDOH Screening 01/01/2026 01/01/2025 Tobacco Screening 01/01/2026 01/01/2025 Cervical Cancer Screening 07/26/2028 HPV/Cotest 07/26/2028 07/26/2023, [...] on patient's age to complete this topic Influenza Vaccine Completed 01/01/2025, , 08/10/2019, Additional history exists Pneumococcal Vaccine: 50+ Years Completed 01/01/2025, 12/12/2018, 10/14/2017 HIB Vaccines Aged Out No longer eligi [...] EST Narrative 11/14/2024 8:36 AM EST ? [facility] ?[address] ?[place] [address] ? Magnetic Resonance Report ? Signed ? Patient: Leidy Batesn ?MR#: [id number] ?? 1571 ? : 1970 ?Acct:[id number] ? Age/Sex: 54 / F ?ADM Date: 11/11/24 ? Loc: HO.MRI ? Attending Dr: Ariel Morocho PA-C ? Ordering Physician: Ariel Morocho PA-C ?? Date of Service: 11/11/24 ?? Procedure(s): MR knee LT wo con ?? Accession Number(s): [id number] ? cc: Alvina Mccartney MD; Ariel Morocho [...] ? DD/ 51 ? TD/TT: 11/11/242014 ? Guest Service Manager: ? Procedure Note Lesa, Image - 11/14/[address] [address] Magnetic Resonance Report Signed Patient: Luann Bates#: [id number] 1571 : 1970Acct:[id number] Age/Sex: 54 / FADM Date: 11/11/24 Loc: HO.MRI Attending Dr: Ariel Morocho PA-C Ordering Physician: Ariel Morocho PA-C Date of Service: 11/11/24 Procedure(s): MR knee LT wo con Accession Number(s): [id number] cc: Alvina Mccartney MD; Ariel Morocho PA-C [...] in OV> 11/14/24832 DD/ 51 TD/TT: 11/11/242014 Guest Service Manager: us [facility] External Provider IMG MRI PROCEDURES Final Result * Dexamethasone (11/10/2024 8:10 AM EST) Dexamethasone 260 ng/dL [facility] Comment:Reference Ranges for Dexamethasone:Baseline: Less than 20 ng/dL1 mg dexamethasone overnight: 180-550 ng/dL (8:00-10:00 AM)This test was developed and its analytical performancecharacteristics have been determined by [employer].It has not been cleared or approved by FDA. This assay hasbeen validated pursuant to the CLIA regulations and is usedfor clinical purposes.THIS TEST WAS PERFORMED AT:[id number] [place] [address]ZECQDTIA COTTON MD,PHD,JENNIFER 11/10/2024 8:10 AM EST 11/10/2024 8:10 AM EST Generic External Data Provider LAB BLOOD ORDERAB LES Final Result Performing Organization Address [facility] de Phone Number [facility] [address] [place] [phone] * Cortisol Random (11/10/2024 8:10 AM EST) Only the most recent of2 resultswithin the time period is included. [facility] Signature Cortisol Random <1.0 ug/dL [facility] Comment:Reference Range*: Be fore 10 am 6.2-19.4 ug/dL After 5 pm 2.3-11.9 ug/dL*Please interpret above results accordingly.This test was performed using the [employer] chemiluminescentmethod. Values obtained from different assay methods cannotbe used interchangeably.Patients receiving fludrocortisone, prednisolone orprednisone may show artificially elevated cortisol valuesdue to cross-reactivity. 11/10/2024 8:10 AM EST 11/10/2024 8:10 AM EST Generic External Data Provider LAB BLOOD ORDERAB LES Final Result Performing Organization Address [facility] de Phone Number [facility] [address] [place] [phone] * (ABNORMAL) ACTH, Plasma (11/10/2024 8:10 AM EST) Only the most recent of2 resultswithin the time period is included. ACTH, Plasma <5(A) 6 - 50 pg/mL [facility] Comment:Reference range appl ies only to specimens collectedbetween 7am-10am.THIS TEST WAS PERFORMED AT:[id number] [place] [address]GOGGKEO W. MASON,MD,PHD 11/10/2024 8:10 AM EST 11/10/2024 8:10 AM EST us Generic External Data Provider LAB BLOOD ORDERAB LES Final Result [facility] [address] [place] [address] [phone] * CT Abdomen Pelvis w/o Contrast (11/09/2024 4:44 PM EST) Anatomical Region Laterality Modality Body, Pelvis, Abdomen Computed T omography 11/09/2024 4:44 PM EST Narrative 11/13/2024 1:20 PM EST ? [facility] ?[address] ?[place] [address] ? CT Scan Report ? Signed ? Patient: Lety Bates ?MR#: [id number] ?? 1571 ? : 1970 ?Acct:[id number] ? Age/Sex: 54 / F ?ADM Date: 11/09/24 ? Loc: HO.CT ? Attending Dr: Kendall Bates MD ? Ordering Physician: Kendall Bates MD ?? Date of Service: 11/09/24 ?? Procedure(s): CT abdomen pelvis wo IV con ?? Accession Number(s): [id number] ? cc: Alvina Mccartney MD; Kendall Bates MD ? Report Number: ?? [id number]: Total DLP = ??506.00 mGy-cm ?? EXAMINATION: [...] DD/ 1644 ? TD/TT: 11/09/24 1651 ? Guest Service Manager: ? Procedure Note Lesa, Image - 11/13/[address] [address] [address] Scan Report Signed Patient: Leidy BatesnMR#: [id number] 1571 : 1970Acct:[id number] Age/Sex: 54 / FADM Date: 11/09/24 Loc: HO.CT Attending Dr: Kendall Bates MD Ordering Physician: Kendall Bates MD Date of Service: 11/09/24 Procedure(s): CT abdomen pelvis wo IV con Accession Number(s): [id number] cc: Alvina Mccartney MD; Kendall Bates MD Report Number: [id number]: Total DLP = 506.00 mGy-cm EXAMINATION: CT [...] by: Elder Esparza MD 11/13/2024 01:[address] [facility] Dictated By: Elder Esparza MD Signed By: <Electronically signed by Elder Esparza MD in OV> 11/13/24 1317 DD/ 1644 TD/TT: 11/09/24 1651 Guest Service Manager: [facility] External Provider IMG CT PROCEDURES Final Result * Metanephrines, Fractionated, Free, LC/MS/MS, Plasma (11/06/2024 7:50 AM EST) Metanephrine, Free 49 <=57 pg/mL [facility] Comment:This test was develo ped and its analytical performancecharacteristics have been determined by [facility] [place], [place]. It hasnot been cleared or approved by the U.S. Food and DrugAdministration. This assay has been validated pursuantto the CLIA regulations and is used for clinicalpurposes. Normetanephrine, Free 81 <=148 pg/mL [facility] Comment:This test was develo ped and its analytical performancecharacteristics have been determined by [facility] [place], [place]. It hasnot been cleared or approved by the U.S. Food and DrugAdministration. This assay has been validated pursuantto the CLIA regulations and is used for clinicalpurposes. Total, Free (MN+NMN) 130 <=205 pg/mL [facility] Comment: For additional information, please refer tohttp://education.Ogorod/faq/MetFractFree(This link is being provided for informational/educatioinformational/educational purposes [...] its analytical performancecharacteristics have been determined by [facility] [place], [place]. It hasnot been cleared or approved by the U.S. Food and DrugAdministration. This assay has been validated pursuantto the CLIA regulations and is used for clinicalpurposes.THIS TEST WAS PERFORMED AT:[facility]/[employer] [id number] [place] [address] ??[id number] CHEUNG MD,PHD 11/06/2024 7:50 AM EST 11/06/2024 7:56 AM EST Generic External Data Provider LAB BLOOD ORDERAB LES Final Result Performing Organization Address [facility] Co de Phone Number [facility] [address] [place] [phone] * Aldosterone, LC/MS/MS (11/06/2024 7:50 AM EST) Pathologist [facility] Aldosterone, LC/MS/MS 4 see note ng/dL [facility] Comment:Unable to flag abnor mal result(s), please refer to reference range(s) below:Adult Reference Ranges for Aldosterone, LC/MS/MS: Upright 8:00 - 10:00 am < or = 28 ng/dL Upright 4:00 - 6:00 pm < or = 21 ng/dL Supine 8:00 - 10:00 am 3 - 16 ng/dLThis test was developed and its analytical performancecharacteristics have been determined by [employer] [place], [place]. It hasnot been cleared or approved by the U.S. Food and DrugAdministration. This assay has been validated pursuantto the CLIA regulations and is used for clinicalpurposes.THIS TEST WAS PERFORMED AT:[facility]/[email or web address] [id number] [place] [address]UDMASBHFERMÍN CHEUNG MD,PHD 11/06/2024 7:50 AM EST 11/06/2024 7:56 AM EST Generic External Data Provider LAB BLOOD ORDERAB LES Final Result Performing Organization Address [facility]/ZIP Co de Phone Number [facility] [address] [place] [phone] * Plasma Renin Activity, LC/MS/MS (11/06/2024 7:50 AM EST) [facility] Plasma Renin Activity, LC/MS/MS 0.85 0.25 - 5.82 ng/mL/h [facility] Comment:This test was develo ped and its analytical performancecharacteristics have been determined by [employer] [place], [place]. It hasnot been cleared or approved by the U.S. Food and DrugAdministration. This assay has been validated pursuantto the CLIA regulations and is used for clinicalpurposes.THIS TEST WAS PERFORMED AT:[facility] [place] [address]FPOWPHSFERMÍN CHEUNG MD,PHD 11/06/2024 7:50 AM EST 11/06/2024 7:56 AM EST Generic External Data Provider LAB BLOOD ORDERAB LES Final Result Performing Organization Address City/[facility]/ZIP Co de Phone Number [facility] [address] [place] [phone] * DHEA Sulfate (11/06/2024 7:50 AM EST) [facility] DHEA Sulfate 74 5 - 167 mcg/dL [facility] Comment:THIS TEST WAS PERFOR MED AT:[facility] [address] [address]LHVMQSHADE CALIX MD 11/06/2024 7:50 AM EST 11/06/2024 7:56 AM EST us Generic External Data Provider LAB BLOOD ORDERAB LES Final Result Performing Organization Address [facility]/ZIP Co de Phone Number [facility] [address] [place] [phone] * (ABNORMAL) Basic Metabolic Panel (11/06/2024 7:50 AM EST) [facility] Sodium 142 135 - 145 mmol/L [facility] Potassium 4.0 3.3 - 5.1 mmol/L [facility] Chloride 109(H) 96 - 108 mmol/L [facility] Carbon Dioxide 25 22 - 29 mmol/L [facility] Anion Gap 12 12 - 20 [facility] Urea Nitrogen (BUN) 23(H) 9 - 16 mg/dL [facility] Creatinine, Serum 0.75 0.5 - 1.4 mg/dL [facility] Estimated Glomerular Filt Rate >60 [facility] Comment:Chronic Kidney Disea se: Estimated GFR < 60 mL/min/1.16z1[place] Kidney Disease: Estimated GFR < 15 mL/min/1.73m2 Glucose 75 60 - 115 mg/dL [facility] Calcium 9.8 8.4 - 10.2 mg/dL [facility] 11/06/2024 7:50 AM EST 11/06/2024 7:56 AM EST us Generic External Data Provider LAB BLOOD ORDERAB LES Final Result [facility] [address] [place] [phone] * (ABNORMAL) Lipid Panel, Standard (07/08/2024 9:02 AM EDT) Pathologist [facility] Triglycerides 101 <150 mg/dL [facility] Comment:Desirable Triglyceri de: less than 150 mg/dLBorderline High Triglyceride 150-199 mg/dLHigh Triglyceride: 200-499 mg/dLVery High Triglyceride: greater than or equal to 5OO mg/dL Cholesterol 184 <200 mg/dL [facility] Comment:Desirable Cholestero l: less than 200 mg/dLBorderline High Cholesterol: 200-239 mg/dLHigh Cholesterol: greater than 239 mg/dL LDL Cholesterol Calculated 128(H) <100 mg/dL [facility] Comment:Desirable LDL: less than 100 mg/dLNear Optimal/Above Optimal LDL: 110- 129 mg/dLBorderline High LDL: 130-159 mg/dLHigh LDL: 160-189 mg/dLVery High LDL: greater than or equal to 190 mg/dL HDL Cholesterol 36(L) >40 mg/dL [facility] Comment:Desirable HDL: great er than 40 mg/dL Note: This HDL assay may give artificially low results in patients with liver disease. Blood Venous blood specimen / Unknown 07/08/2024 9:02 AM EDT 07/08/2024 9:02 AM EDT Alvina Mccartney MD LAB BLOOD ORDERABLES Final Result [facility] [address] [place] [phone] * POCT HGB A1C (07/05/2024 10:53 AM EDT) Hemoglobin A1C 5.9 4.0 - 6.0 % QC Media Lot # [id number] Lot# Expiration Date [id number] Blood 07/05/2024 10:5 3 AM EDT Alvina Mccartney MD POINT OF CARE TEST ENTER/E DIT ORDERABLES Final Result * Hm Colonoscopy (04/04/2024) Colonoscopy Normal Normal 04/04/2024 Mil Alvarado MD HEALTH MAINTENANCE Final Result * BI Mammogram Screening Tomosynthesis Bilateral (12/01/2023 2:40 PM EST) Anatomical Region Laterality Modality Breast Bilateral Mammography 12/01/2023 2:40 PM EST Narrative 12/23/2023 9:55 PM EST ? [facility] ? [address] ?[place] [address] ? Mammography Report ? Signed ? Patient: Paulo,Lety ?MR#: [id number] ?? [id number] ? : 1970 ?Acct:[id number] ? Age/Sex: 53 / F ?ADM Date: 01/31/24 ? Loc: HO.MAMMO ? Attending Dr: Alvina Mccartney MD ? Ordering Physician: Alvina Mccartney MD ?Results: 2B ?? enign Findings ? Date of Service: 12/01/23 ?Follow Up: 1 Year From Orig ?? inal Mammogram ? Procedure(s): MM tomosynthesis screening BI ?? Accession Number(s): [id number] ? cc: Alvina Mccartney MD ? EXAMINATION: [...] 12/23/232151 ? DD/ 1440 ? TD/TT: ? Guest Service Manager: ? Procedure Note Lesa, Image - 12/23/2023 [facility] [address] [place] [address] Mammography Report Signed Patient: Leidy BatesnMR#: [id number] : 1970Acct:[id number] Age/Sex: 53 / FADM Date: 12/01/23 Loc: HO.MAMMO Attending Dr: Alvina Mccartney MD Ordering Physician: Alvina Mccartney MDResults: 2B enign Findings Date of Service: 12/01/23Follow Up: 1 Year From Orig inal Mammogram Procedure(s): MM tomosynthesis screening BI Accession Number(s): [id number] cc: Alvina Mccartney MD EXAMINATION: MM SCREENING [...] in OV> 12/23/23 2152 DD/ 1440 TD/TT: Guest Service Manager: Alvina Mccartney MD IMG BI PROCEDURES Edited R esult - Final * Hepatitis C Ab (07/29/2023 9:23 AM EDT) Hepatitis C Antibody Nonreactive Nonreactive [facility] Comment:Antibodies to HCV no t detected; does not exclude early acuteHCV infection. Blood 07/29/2023 9:23 AM EDT 07/29/2023 11:00 AM EDT Alvina Mccartney MD LAB BLOOD ORDERABLES Final Result [facility] [address] [place] [phone] * HPV mRNA E6/E7 w/Reflex to HPV Genotypes 16, 18/45 (07/26/2023 10:57 AM EDT) HPV nRNA E6/E7 Not Detected Not Detected [facility] Comment:Methodology: Transcr iption-Mediated AmplificationThis assay detects E6/E7 viral messenger RNA (mRNA) from 14high-risk HPV types (16,18,31,33,35,39,45,51,52,56,58,59,66,68).Cervical sources are required for HPV testing.If a vaginal source from a patient who has had atotal hysterectomy with removal of cervix wassubmitted, please contact the testing laboratoryfor alternative testing options.For additional information, please refer [email or web address].Ogorod/faq/RHJ573u3(This link if provided for information/educational purposes only.)THIS TEST WAS PERFORMED AT:[facility] [place] [phone] CALIX MD HPV mRNA E6/E7 TNP [facility] HPV 16 RNA TNP [facility] HPV 18/45 RNA TNP [facility] 07/26/2023 10:5 7 AM EDT 07/27/2023 9:00 AM EDT us Alvina Mccartney MD LAB CYTOLOGY ORDERABLES Fi nal Result [facility] [address] [place] [phone] * Pap Smear (07/26/2023 10:57 AM EDT) 07/26/2023 10:5 7 AM EDT 07/27/2023 9:00 AM EDT Narrative [facility] - 08/02/2023 1:35 PM EDT ----- ------- Name: Lety Bates ? Age/Sex: 53/F ? : 1970 Unit#: [id number] ?? Attend Dr: Alvina Mccartney MD ?Re07/26/23 ?Status: DEP REF ? Location: [facility] ? Disch: ? ----- ------- SPEC : [id number] ?RECD: 07/27/23 ? STATUS: ??SOUT ? REQ NUM: [id number] ? AMANDA: 07/26/23 ? SUBM DR: Alvina Mccartney MD ? ENTERED: ??07/27/23 ?SP TYPE: Pap Smr ?OTHR DR: ? ORDERED: ??Pap Smear ? Interpretation ?? Satisfactory for evaluation. ?? Negative for intraepithelial lesion or malignancy. ?HPV mRNA E6/E7: ?NOT DETECTED ? This assay detects E6/E7 viral messenger RNA (mRNA) from 14 high-risk HPV types (16, 18, ?? 31, 33, 35, 39, 45, 51, 52, 56, 58, 59, 66, 68) ?? HPV testing performed by [facility], [place], [place]. ??See reference laboratory ?? pion of the EMR for entire report. ?Clinical Information LMP: Unknown date Previous PAP test: Unknown date/findings ? Material Received ?? ThinPrep-Vaginal/Cervical ----- ------- Signed (signature on file) JUSTIN Arambula (ASCP) 08/02/23 1405 ? ----- ------- ? END OF REPORT ? 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 Advance Directives and Living Will 07/07/2024 1:01 PM Health Care Proxy Care Teams Global Lead Relationship Specialty Start Date End Date Alvina Mccartney MD [address] [place] [address] PCP - General Family Medicine 11/01/18 Riky Tanner [address] [place] [address] [address] [place] [address] Cardiology 10/03/24 Mariella Mcdonnell [facility] [address] [phone] Sleep Medicine 10/11/24 Jina Vences MD [address] [place] [address] Endocrinology 11/05/24 Shadia Morocho PA [address] [place] [address] Orthopaedic Surgery 11/07/24 Kendall Bates MD [address] [place] [address] General Surgery 11/28/24
--- OUTSIDE RECORDS SUMMARY | 2025-01-03 09:32 | XMS_ITS | Encounter Summary ---
Author Organization [employer] Address [address] [facility] 7t h [address] [address] Care Team Providers Care Collection Officer Name Role Phone Alvina Mccartney MD Primary Care Provider [phone] Riky Tanner Unavailable Mariella Mcdonnell Unavailable [phone] Jina Vences MD Unavailable Shadia Morocho Unavailable Kendall Bates MD Unavailable [phone] Reason for Referral * Consultation (Routine) - Authorized Specialty Diagnoses / Procedures Referred By Oleg nunez Referred To Contact Pain Medicine Diagnoses Fibromyalgia Chronic pain of right knee Low back pain at multiple sites Alvina Mccartney MD [address] [place] [address] Phone: tel: fax: Referral ID Status Reason Start Date Expiration Date Visits Requested Visits Authorized [id number] Authorized Specialty Services Required 01/01/2025 01/01/2026 1 1 * Imaging (Routine) - Authorized Specialty Diagnoses / Procedures Referred By Oleg nunez Referred To Contact Radiology Diagnoses Screening mammogram for breast cancer Procedures BI Mammogram Screening Tomosynthesis Bilateral Alvina Mccartney MD [address] [place] [address] Phone: tel: fax: [address] Phone: tel: fax: Referral ID Status Reason Start Date Expiration Date V isits Requested Visits Authorized [id number] Authorized 01/01/2025 01/01/2026 1 1 * Imaging (Routine) - Authorized Specialty Diagnoses / Procedures Referred By Contac t Referred To Contact Radiology Diagnoses Breast pain, left Procedures BI Mammogram Diagnostic Tomosynthesis Left Alvina Mccartney MD [address] [place] [address] Phone: tel: fax: [address] Phone: tel: fax: Referral ID Status Reason Start Date Expiration Date V isits Requested Visits Authorized [id number] Authorized 01/01/2025 01/01/2026 1 1 * Consultation (Routine) - Authorized Specialty Diagnoses / Procedures Referred By Oleg t Referred To Contact Family Medicine Diagnoses Fibromyalgia Alvina Mccartney MD [address] [place] [address] Phone: tel: fax: Referral ID Status Reason Start Date Expiration Date Visits Requested Visits Authorized [id number] Authorized Consult and Treat 01/01/2025 01/01/2026 1 1 Encounter Details Date Type Department Care Team (Late st Contact Info) Description 01/01/2025 9:45 AM EST Office Visit [facility] [address] [place] [address] Alvina Mccartney MD [address] [place] [address] Essential hypertension (Primary Dx); Fibromyalgia; Breast pain, [...] nodule (CMS/HCC); Chronic pain of left knee Social History Tobacco Use Types Packs/Day Years [...] AM EDT documented as of this encounter Last Filed Vital Signs Vital Sign Reading [...] Mass Index 31.46 01/01/2025 9:25 AM EST documented in this encounter Patient Instructions * Patient Instructions* Alvina Mccartney MD - 01/01/2025 9:45 AM EST To schedule your test at please call [phone]. documented in this encounter Progress Notes * Alvina Mccartney MD - 01/01/2025 9:45 AM EST Subjective Patient ID: Lety Bates is a 54 y.o. female with past medical history of hypertension, b/l CTS, fibromyalgia, chronic gerd and choric dizziness who presents for follow-up blood pressure. Pt reports severe total body pain and that her fibromyalgia has been worse. She has an appt with Orthopedics[facility] at [facility] this Wednesday(01/03/25) for an injection. Pt reportsher pain is intolerable and she cannot sleep, specifically her back pain. She has tried Celebrex inthe past and also notes she has had relief with oxycodone. We discussed that opiates are mot a goodoption for fibromyalgia pain. Pt agrees to acupuncture as well as pain management referral. She reports her BP's have been well controlled at home. BP is at goal today. Pt also reports generalized right sided breast pain. No discharge or external abnormalities. Reviewed PDP and pt reports she is currently on Gabapentin 300 mg, Ambien 10 mg and was prescribed oxycodone on 11/14/[address] Bates but is not on chronic opiates. Agrees to Flu and PCV20 vaccines today. Review of Systems Constitutional: Negative for fever and unexpected weight change. Respiratory: Negative for shortness of breath. Cardiovascular: Negative for chest pain. Gastrointestinal: Negative for abdominal pain. Genitourinary: Negative for difficulty urinating. Musculoskeletal: Positive for arthralgias. Objective Visit Vitals BP 138/81 (BP Location: Left arm, Patient Position: Sitting, BP Cuff Size: Adult) Pulse 67 Temp 98 ??F (36.7 ??C) (Temporal) Resp 20 Body mass index is 31.46 kg/m??. Physical Exam Constitutional: Appearance: Normal appearance. Cardiovascular: Rate and Rhythm: Normal rate and regular rhythm. Heart sounds: Normal heart sounds. Pulmonary: Effort: Pulmonary effort is normal. Breath sounds: Normal breath sounds. Neurological: General: No focal deficit present. Mental Status: She is alert. Psychiatric: Behavior: Behavior normal. Problem List Items Addressed This Visit Essential hypertension - Primary Followed by Dr. Riky Tanner MD at [facility]. Note from 09/2024 reviewed. -Blood pressure is at goal -Continue lifestyle modifications -Continue current medications -hydrochlorothiazide discontinued by Dr. Tanner 09/2024 Fibromyalgia Explained that FM is a type of nerve hypersensitivity and that physical activity is not contraindicated; in fact, it may improve symptomsrecommended our group acupuncture program, stress reduction, etc. -Encouraged acupuncture clinic 09/15/2023, hand out given -Rx for cane per her request 09/15/2023 -She has 2 HEAD GROWER 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 Relevant Orders Referral to Chronic Pain Group Clinic Referral to Pain Medicine Breast pain, left Generalized right-sided breast pain. No concerning red flag symptoms. -ordered mammogram 01/01/25 Relevant Orders BI Mammogram Diagnostic Tomosynthesis Left Low back pain at multiple sites Chronic back pain. Likely due to fibromyalgia. -referred to acupuncture 01/01/25 -referred to pain management 01/01/25 -referred to chronic pain group 01/01/25 Relevant Orders Referral to Pain Medicine Obstructive sleep apnea syndrome Followed by [facility]. Sleep study 10/07/18 reveals severe SILVER. -Currently using CPAP nightly She started 11/05/2018 -seen by CIARA Lepe on 10/09/24 continue CPAP 14 cmH2O. [facility] Screening mammogram for breast cancer -ordered mammogram 01/01/25 Relevant Orders BI Mammogram Screening Tomosynthesis Bilateral Major depression single episode, in partial remission (CMS/HCC) At visit in 11/2017, we stopped depo, as we presumed was causing depression Depression has not improved, as she is being seen by psychiatrist and therapist. No SI/HI. Reports going to [facility], where she sees her specialists. Overweight Discussed weight, diet, exercise with patient in relation to health conditions. Used motivational interviewing to illicit change talk and established initial goals with patient. Dietary counseling Dietary Recommendations: Fruits, vegetables, whole grains, protein foods, and fat-free or low-fat dairy products are healthychoices. Eat different types of protein foods in your diet. This can include seafood, lean meats, poultry, beans, peas, lentils, nuts, seeds, soy products, and eggs. Limit foods and beverages higher in added sugars, saturated fat, and sodium. Exercise counseling Exercise Recommendations: At least 150 minutes of moderate-intensity physical activity per week, or an equivalent combinationof moderate- and vigorous-intensity activity Hypercholesteremia Lab Results Component Value Date CHOL 184 07/08/2024 CHOL 208 (H) 07/29/2023 TRIG 101 07/08/2024 TRIG 117 07/29/2023 HDL 36 (L) 07/08/2024 HDL 46 07/29/2023 LDLCHOLCAL 128 (H) 07/08/2024 LDLCHOLCAL 139 (H) 07/29/2023 -continue lifestyle modification -recommended Sulfacetamide 01/01/25 Mild intermittent asthma She is controlled on Adviar 550mcg BID and Albuterol prn. -continue advair -continue albuterol prn -pfts 12/20/18 were nml -continue Claritin RESOLVED: Backache Adrenal nodule (CMS/HCC) Incidental noted on ER CT CT abdomen pelvis w IV con 08/27/2023 revealed ADRENAL GLANDS: There is a1.1 cm low-density left adrenal nodule. -no evidence of Chushinoid signs, recheck 1 year -ordered repeat CT 07/05/24, done but not read by radiology until 10/06/24: Left adrenal gland: There is a 9 mm isodense nodule measuring 40 Hounsfield units in the non-IV contrast exam. Stable from size compared to CT scan in 2020 when this measured 9 mm, with precontrast 31 Hounsfield units and postcontrast 85 Hounsfield units. -seen by endocrinology Dr. 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 Given stability in size this is reassuring of most likely a benign nodule. However Hounsfieldunits are on the higher side hence I [...] up in August [address] scan Chronic pain of left knee -seen by Ariel Morocho PA-C of Orthopedics 11/07/23 -MR/MR knee LT wo con 11/14/24 IMPRESSION: Moderate joint effusion. 2.0 cm probable ganglion cyst posterior to the medial tibial plateau. Moderate patellofemoral osteoarthritis. Mild osteoarthritis of the medial compartment. -referred to pain management 01/01/25 -referred to chronic pain group 01/01/25 Other Visit Diagnoses Chronic pain of right knee Relevant Orders Referral to Pain Medicine Encounter for immunization Relevant Orders FLU VACCINE TRIVALENT (Fluarix) 6 mo + (Completed) PCV-20 VACCINE 6 wks + (Completed) 6 months for pe IJean-Paul, am serving as a scribe to document services personally performed by Dr. Lopez, based on the patient's response to questions by provider and providers statements to me. documented in this encounter Miscellaneous Notes * Assessment & Plan Note - Jean-Paul Delaney - 01/01/2025 5:44 PM ESTAssociated Problem(s): Fibromyalgia Explained that FM is a type of nerve hypersensitivity and that physical activity is not contraindicated; in fact, it may improve symptomsrecommended our group acupuncture program, stress reduction, etc. -Encouraged acupuncture clinic 09/15/2023, hand out given -Rx for cane per her request 09/15/2023 -She has 2 HEAD GROWER 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 * Assessment & Plan Note - Jean-Paul Delaney - 01/01/2025 5:43 PM ESTAssociated Problem(s): Chronic pain of right knee (Deleted) -seen by Ariel Morocho PA-C of Orthopedics 11/07/23 -MR/MR knee LT wo con 11/14/24 IMPRESSION: Moderate joint effusion. 2.0 cm probable ganglion cyst posterior to the medial tibial plateau. Moderate patellofemoral osteoarthritis. Mild osteoarthritis of the medial compartment. -referred to pain management 01/01/25 -referred to chronic pain group 01/01/25 * Assessment & Plan Note - Jean-Paul Delaney - 01/01/2025 5:42 PM ESTAssociated Problem(s): Screening mammogram for breast cancer -ordered mammogram 01/01/25 * Assessment & Plan Note - Jean-Paul Delaney - 01/01/2025 5:41 PM ESTAssociated Problem(s): Major depression single episode, in partial remission (CMS/HCC) At visit in 11/2017, we stopped depo, as we presumed was causing depression Depression has not improved, as she is being seen by psychiatrist and therapist. No SI/HI. Reports going to [facility], where she sees her specialists. * Assessment & Plan Note - Jean-Paul Delaney - 01/01/2025 5:38 PM ESTAssociated Problem(s): Low back pain at multiple sites Chronic back pain. Likely due to fibromyalgia. -referred to acupuncture 01/01/25 -referred to pain management 01/01/25 -referred to chronic pain group 01/01/25 * Assessment & Plan Note - Jean-Paul Delaney - 01/01/2025 5:28 PM ESTAssociated Problem(s): Hypercholesteremia Lab Results Component Value Date CHOL 184 07/08/2024 CHOL 208 (H) 07/29/2023 TRIG 101 07/08/2024 TRIG 117 07/29/2023 HDL 36 (L) 07/08/2024 HDL 46 07/29/2023 LDLCHOLCAL 128 (H) 07/08/2024 LDLCHOLCAL 139 (H) 07/29/2023 -continue lifestyle modification -recommended Sulfacetamide 01/01/25 * Assessment & Plan Note - Jean-Paul Delaney - 01/01/2025 5:26 PM ESTAssociated Problem(s): Breast pain, left Generalized right-sided breast pain. No concerning red flag symptoms. -ordered mammogram 01/01/25 * Assessment & Plan Note - Jean-Paul Delaney - 01/01/2025 5:25 PM ESTAssociated Problem(s): Adrenal nodule (CMS/HCC) Incidental noted on ER CT CT abdomen pelvis w IV con 08/27/2023 revealed ADRENAL GLANDS: There is a1.1 cm low-density left adrenal nodule. -no evidence of Chushinoid signs, recheck 1 year -ordered repeat CT 07/05/24, done but not read by radiology until 10/06/24: Left adrenal gland: There is a 9 mm isodense nodule measuring 40 Hounsfield units in the non-IV contrast exam. Stable from size compared to CT scan in 2020 when this measured 9 mm, with precontrast 31 Hounsfield units and postcontrast 85 Hounsfield units. -seen by endocrinology Dr. 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 Given stability in size this is reassuring of most likely a benign nodule. However Hounsfieldunits are on the higher side hence I [...] up in August [address] scan * Assessment & Plan Note - Jean-Paul Delaney - 01/01/2025 5:25 PM ESTAssociated Problem(s): Overweight Discussed weight, diet, exercise with patient in relation to health conditions. Used motivational interviewing to illicit change talk and established initial goals with patient. * Assessment & Plan Note - Jean-Paul Delaney - 01/01/2025 5:24 PM ESTAssociated Problem(s): Essential hypertension Followed by Dr. Riky Tanner MD at [facility]. Note from 09/2024 reviewed. -Blood pressure is at goal -Continue lifestyle modifications -Continue current medications -hydrochlorothiazide discontinued by Dr. Tanner 09/2024 * Assessment & Plan Note - Jean-Paul Delaney - 01/01/2025 5:24 PM ESTAssociated Problem(s): Mild intermittent asthma She is controlled on Adviar 550mcg BID and Albuterol prn. -continue advair -continue albuterol prn -pfts 12/20/18 were nml -continue Claritin * Assessment & Plan Note - Jean-Paul Delaney - 01/01/2025 5:24 PM ESTAssociated Problem(s): Obstructive sleep apnea syndrome Followed by [facility]. Sleep study 10/07/18 reveals severe SILVER. -Currently using CPAP nightly She started 11/05/2018 -seen by CIARA Lepe on 10/09/24 continue CPAP 14 cmH2O. Supplies are though [facility] * Assessment & Plan Note - Jean-Paul Delaney - 01/01/2025 5:14 PM ESTAssociated Problem(s): Exercise counseling Exercise Recommendations: At least 150 minutes of moderate-intensity physical activity per week, or an equivalent combinationof moderate- and vigorous-intensity activity * Assessment & Plan Note - Jean-Paul Delaney - 01/01/2025 5:13 PM ESTAssociated Problem(s): Dietary counseling Dietary Recommendations: Fruits, vegetables, whole grains, protein foods, and fat-free or low-fat dairy products are healthychoices. Eat different types of protein foods in your diet. This can include seafood, lean meats, poultry, beans, peas, lentils, nuts, seeds, soy products, and eggs. Limit foods and beverages higher in added sugars, saturated fat, and sodium. * Assessment & Plan Note - Jean-Paul Delaney - 01/01/2025 9:45 AM ESTAssociated Problem(s): Chronic pain of left knee -seen by Ariel Morocho PA-C of Orthopedics 11/07/23 -MR/MR knee LT wo con 11/14/24 IMPRESSION: Moderate joint effusion. 2.0 cm probable ganglion cyst posterior to the medial tibial plateau. Moderate patellofemoral osteoarthritis. Mild osteoarthritis of the medial compartment. -referred to pain management 01/01/25 -referred to chronic pain group 01/01/25 documented in this encounter Plan of Treatment Scheduled Orders Name Type Priority Associated Diagnoses Orde r Schedule BI Mammogram Diagnostic Tomosynthesis Left Imaging Routine Breast pain, left Expected: 01/01/2025, Expires: 03/03/2026 BI Mammogram Screening Tomosynthesis Bilateral Imaging Routine Screening mammogram for breast cancer Expected: 01/01/2025, Expires: 03/03/2026 Scheduled Referrals Name Type Priority Associated Diagnoses Orde r Schedule Referral to [facility] Group Clinic Outpatient Referral Routine Fibromyalgia Expected: 01/01/2025 (Approximate), Expires: 01/01/2026 Referral to Pain Medicine Outpatient Referral Routine Fibromyalgia Chronic pain of right knee Low back pain at multiple sites Expected: 01/01/2025 (Approximate), Expires: 01/01/2026 documented as of this encounter Visit Diagnoses Diagnosis Essential hypertension- Primary Unspecified essential hypertension Fibromyalgia Unspecified myalgia and myositis Breast pain, left Low back pain at multiple sites Obstructive sleep apnea syndrome Obstructive sleep apnea (adult) (pediatric) Chronic pain of right knee Screening mammogram for breast cancer Major depression single episode, in partial remission (CMS/HCC) Major depressive disorder, single episode, in partial or unspecified remission Overweight Dietary counseling Dietary surveillance and counseling Exercise counseling Encounter for immunization Hypercholesteremia Pure hypercholesterolemia Mild intermittent asthma without complication Chronic midline low back pain without sciatica Adrenal nodule (CMS/HCC) Benign neoplasm of adrenal gland Chronic pain of left knee documented in this encounter Additional Health Concerns Assessment Noted Time PHQ-9 Depression Total Score: 17 025 9:49 AM EST documented as of this encounter Care Teams Collection Officer Relationship Specialty Start Date End Date Alvina Mccartney MD [address] [place] [address] PCP - General Family Medicine 11/01/18 Riky Tanner [address] 3rd [place] [address] Cardiology 10/03/24 Mariella Mcdonnell [address] [phone] Sleep Medicine 10/11/24 Jina Vences MD [address] [place] [address] Endocrinology 11/05/24 Shadia Morocho PA [address] [place] [address] Orthopaedic Surgery 11/07/24 Kendall Bates MD [address] [place] [address] General Surgery 11/28/24 documented as of this encounter
--- OUTSIDE RECORDS SUMMARY | 2025-01-03 09:32 | XMS_ITS | Encounter Summary ---
Author Organization [employer] Address [address] [facility] 7t [place] [address] Care Team Providers Care Manager Ethics Name Role Phone Alvina Mccartney MD Primary Care Provider [phone] Riky Tanner Unavailable Mariella Mcdonnell Unavailable [phone] Jina Vences MD Unavailable Shadia Morocho Unavailable Kendall Bates MD Unavailable Encounter Details Date Type Department Care Team (Late st Contact Info) Description 01/02/2025 Telephone [facility] [address] [place], [place] [phone] Alvina Mccartney MD [address] [place], [place] [phone] Social History Tobacco Use Types Packs/Day Years [...] encounter Miscellaneous Notes * Telephone Encounter - Alvina Mccartney MD - 01/02/2025 8:51 AM EST You please change recall to follow up in 6 months for physical. I put in 6 years by mistake. Thank you. documented in this encounter Plan of Treatment Not on file documented as of this encounter Visit Diagnoses Not on filedocumented in this encounter Additional Health Concerns Assessment Noted Time PHQ-9 Depression Total Score: 17 025 9:49 AM EST documented as of this encounter Care Teams Manager Ethics Relationship Specialty Start Date End Date Alvina Mccartney MD [address] [place] [address] PCP - General Family Medicine 11/01/18 Riky Tanner [address]rd [place] [address] Cardiology 10/03/24 Mariella Mcdonnell [address] [address] Sleep Medicine 10/11/24 Jina Vences MD [address] [place] [address] Endocrinology 11/05/24 Shadia Morocho PA [address] [place] [address] Orthopaedic Surgery 11/07/24 Kendall aBtes MD [address] 3rd [place] [address] General Surgery 11/28/24 documented as of this encounter
--- OUTSIDE RECORDS SUMMARY | 2025-01-03 09:32 | XMS_ITS | Encounter Summary ---
Author Organization [employer] Address 75 [facility] 7t [place] [address] Care Team Providers Care Latin American Studies Director Name Role Phone Alvina Mccartney MD Primary Care Provider [phone] Riky Tanner Unavailable Mariella Mcdonnell Unavailable [phone] Jina Vences MD Unavailable Shadia Morocho Unavailable eKndall Bates MD Unavailable Encounter Details Date Type Department Care Team (Late st Contact Info) Description 10/16/2022 Orders Only [facility] [address] [place], [place] [phone] Anel Espinoza, RN Social History Tobacco Use [...] on filedocumented in this encounter Care Teams Latin American Studies Director Relationship Specialty Start Date End Date Alvina Mccartney MD [address] [place], [place] [phone] PCP - General Family Medicine 11/01/18 Riky Tanner [address] 3rd [place] [address] Cardiology 10/03/24 Mariella Mcdonnell [address] [phone] Sleep Medicine 10/11/24 Jina Vences MD [address] [place] [address] Endocrinology 11/05/24 Shadia Morocho PA [address] [place] [address] Orthopaedic Surgery 11/07/24 Kendall Bates MD [address] 3rd [place] [address] General Surgery 11/28/24 documented as of this encounter
--- OUTSIDE RECORDS SUMMARY | 2025-01-03 09:32 | XMS_ITS | Encounter Summary ---
Author Organization [employer] Address 75 [facility] 7t [place] [address] Care Team Providers Care Connection Worker Name Role Phone Alvina Mccartney MD Primary Care Provider [phone] Riky Tanner Unavailable Mariella Mcdonnell Unavailable [phone] Jina Vences MD Unavailable Shadia Morocho Unavailable Kendall Bates MD Unavailable [phone] Reason for Visit * Reason Onset Date Comments chartprep 12/25/2024 Encounter Details Date Type Department Care Team (Late st Contact Info) Description 12/25/[address] [facility] [address] [place], [place] [phone] Alvina Mccartney MD [address] [place], [place] [phone] chartprep Social History Tobacco Use Types Packs/Day Years [...] the past 12 months, has t he [employer], gas, oil or water company threatened to [...] encounter Miscellaneous Notes * Telephone Encounter - Hayley Briscoe MA - 12/25/2024 2:05 PM EST ...Chart Prep Labs: not applicable Images: done Vaccines due: Covid Due, Tdap Due, PCV20 Due, and Flu Due zoster Referrals: Not Applicable Screenings: Mammogram Overdue care gaps: Sbirt, SDOH, PHQ-9, and Oral Health documented in this encounter Plan of Treatment Not on file documented as of this encounter Visit Diagnoses Not on filedocumented in this encounter Additional Health Concerns Assessment Noted Time PHQ-9 Depression Total Score: 8 07/26/20 23 10:55 AM EDT documented as of this encounter Care Teams Connection Worker Relationship Specialty Start Date End Date Alvina Mccartney MD [address] [place] [address] PCP - General Family Medicine 11/01/18 Riky Tanner [address] [place] [address] [address] [place] [address] Cardiology 10/03/24 Mariella Mcdonnell 3640 [facility] [address] [place] [address] Sleep Medicine 10/11/24 Jina Vences MD [address] [place] [address] Endocrinology 11/05/24 Shadia Morocho PA [address] [place] [address] Orthopaedic Surgery 11/07/24 Kendall Bates MD [address] 3rd [place] [address] General Surgery 11/28/24 documented as of this encounter
--- OUTSIDE RECORDS SUMMARY | 2025-01-03 09:32 | XMS_ITS | Encounter Summary ---
Author Organization [facility] Address [address] [facility] [address] [place] [address] Care Team Providers Care Eyelet Operator Name Role Phone Alvina Mccartney MD Primary Care Provider [phone] Riky Tanner Unavailable Mariella Mcdonnell Unavailable [phone] Jina Vences MD Unavailable Shadia Morocho Unavailable Kendall Bates MD Unavailable [phone] Encounter Details Date Type Department Care Team (Latest Contact Info) Description 12/31/2024 Travel Social History Tobacco Use Types Packs/Day [...] documented as of this encounter Care Teams Eyelet Operator Relationship Specialty Start Date End Date Alvina Mccartney MD [address] [place] [address] PCP - General Family Medicine 11/01/18 Riky Tanner [address] 3rd [place] [address] Cardiology 10/03/24 Mariella Mcdonnell [address] [address] Sleep Medicine 10/11/24 Jina Vences MD [address] [place] [address] Endocrinology 11/05/24 Shadia Morocho PA [address] [place] [address] Orthopaedic Surgery 11/07/24 Kendall Bates MD [address] [place] [address] General Surgery 11/28/24 documented as of this encounter
--- OUTSIDE RECORDS SUMMARY | 2025-01-03 09:32 | XMS_ITS | Encounter Summary ---
Author Organization [employer] [facility] [employer] Address [address] [facility] 7t [place] [address] Care Team Providers Care Senior Web Designer Name Role Phone Alvina Mccartney MD Primary Care Provider [phone] Riky Tanner Unavailable Mariella Mcdonnell Unavailable [phone] Jina Vences MD Unavailable Shadia Morocho Unavailable Kendall Bates MD Unavailable Reason for Visit * Reason Comments Pre-visit Planning Pre-visit planning - LVM Encounter Details Date Type Department Care Team (Late st Contact Info) Description 12/19/2024 Patient Outreach [facility] [address] [place], [place] [id number] Alvina Mccartney MD [address] [place], [place] [phone] Pre-visit Planning (Pre-visit planning - LVM ) Social History Tobacco Use Types Packs/Day Years [...] the past 12 months, has t he [employer], gas, oil or water [employer] threatened to shut off services in your home? No 08/26/2023 Depression Answer Date Recorded Patient Health Questionnaire-2 Score 4 07/26/2023 Comments Unknown Sex and Gender Information Value Date Recorded Sex Assigned at Female 08/31/2022 10:14 AM EDT Legal Sex Female 10:14 AM EDT Gender Identity Female 08/31/2022 10:14 AM EDT Sexual Orientation Straight 08/31/2022 10 :14 AM EDT documented as of this encounter Progress Notes * Hayley Combs - 12/19/2024 9:49 AM EST YOSEPH Rucker placed outbound call to patient to complete pre-visit planning. No answer at this time. Patient name and were not confirmed. CC left voicemail requesting return call. Direct contact information provided. documented in this encounter Plan of Treatment Not on file documented as of this encounter Visit Diagnoses Not on filedocumented in this encounter Additional Health Concerns Assessment Noted Time PHQ-9 Depression Total Score: 8 07/26/20 23 10:55 AM EDT documented as of this encounter Care Teams Senior Web Designer Relationship Specialty Start Date End Date Alvina Mccartney MD [address] [place] [address] PCP - General Family Medicine 11/01/18 Riky Tanner [address] [place] [address] Cardiology 10/03/24 Mariella Mcdonnell [address] [facility] [address] [place] [address] Sleep Medicine 10/11/24 Jina Vences MD [address] [place] [address] Endocrinology 11/05/24 Shadia Morocho PA [address] [place] [address] Orthopaedic Surgery 11/07/24 Kendall Bates MD [address]rd [place] [address] General Surgery 11/28/24 documented as of this encounter
== END 2025-01-03 09:34 | disposition home or self-care (01) ==
PROVIDERS: PCP Family Medicine; Visit Provider Physician Assistant
DX: M25.562 Pain in left knee (principal)
CPT/HCPCS: 20610; 99213

== ENCOUNTER → 2025-01-03 08:47 | Outpatient (BNVA) | payer OTHER, SELFPAY | PROVIDERS: PCP Family Medicine; Visit Provider Physician Assistant | DX: M25.562 Pain in left knee (principal) | CPT/HCPCS: 20610; 99212; J1010; J2003 ==

== ENCOUNTER 2025-01-16 08:54 | Outpatient (AMB) | payer OTHER, SELFPAY ==
--- NOTE | 2025-01-16 08:56 | A.OFFVIS_ITS ---
Vital Signs 01/16/25 09:07 Height 5 ft 3 in Weight 175 lb 6 oz BMI 31.1 BP 141/78 H Blood Pressure Location Lt brachial Position Sitting Respiration 16 Pulse 67 Pulse Source Pulse Oximeter Pulse Oximetry (%) 99 Oxygen Delivery Method Room Air Intake Visit Reasons: Left knee pain Intake Note: Pain today 06/10 Grinder Set Up Operator External Required: No Accompanied by: Self / Same As Patient Allergies No Known Allergies Allergy (Verified 01/03/25 09:06) HPI Comments Details: The patient is a 54-year-old female presents today for initial evaluation of chronic left knee pain due to osteoarthritis. The patient has experienced progressive and persistent pain in her left knee for the past several years, with initial onset occurring in [id number]. She is diagnosed with patellofemoral osteoarthritis and mild medial compartment osteoarthritis. Her symptoms includes significant pain interfering with daily activities like walking, knee bending, and stair climbing. She reports a feeling like bone grinding upon movement and consistent swelling with episodes of burning localized around the anterior and medial aspects of the knee. The patient reports sitting exacerbates her knee pain, and walking causes acute discomfort. Earlier treatments include cortisone injections, with most recent administered on 01/03/25, which delivered only transient relief. On a prior occasion, she had received similar treatment, also resulting in minimal relief. A knee brace is currently utilized to support stability, providing mild to moderate accomplishment in stability while walking. Gabapentin is employed in addressing pain linked to her fibromyalgia and associated neuropathic and diffuse body pain. - Onset: Left knee pain started 2-3 years ago, progressively worsening. - Quality: Described as severe, with grinding, sharp, aching and throbbing sensations. - Location: Primarily the left knee, anterior and medial aspects. - Radiation: Burning noted around the knee - Exacerbating Factors: Walking, prolonged sitting, stair climbing, cold weather. - Relieving Factors: Temporary relief from cortisone injections, Tylenol, NSAIDs, topical applications. - Interference: Significant interference with walking, climbing stairs, and knee bending. - Affect: The pain significantly impacts the patient's mobility and mental well- being due to its persistence. - Analgesia: Gabapentin and occasional ibuprofen or Tylenol; received cortisone injections with transient relief. - Adverse Effects: None reported. - Activities of Daily Living: Difficulty in walking, stair climbing, and bending the knee; moderate support from a knee brace. - Aberrant Drug Related Behaviors: None reported. PFSH Medical History Adrenal incidentaloma Back pain Pre-diabetes GERD (gastroesophageal reflux disease) Fibromyalgia Bipolar disorder Insomnia Anxiety Depression Syncope Mild intermittent asthma NAFLD (nonalcoholic fatty liver disease) Vertigo Sleep apnea IBS (irritable bowel syndrome) Arthritis HTN (hypertension) Surgical History History of umbilical hernia repair (~11/14/24) Hx of colonoscopy History of esophagogastroduodenoscopy (EGD) History of hysterectomy Family History Father Diabetes Arthritis Hypertension Hypercholesteremia Cancer Mother Diabetes Hypertension Arthritis Cancer Son Asthma Son Asthma Heart problem Social History Are you a primary manager managed care to a significant other at home: No Do you presently have visiting nurse or other home services: No Alcohol intake: never Patient Tobacco Use Status: Never used Tobacco Current occupational status: retired Review of Systems Const All systems reviewed & are unremarkable except as noted in HPI and below Physical Exam General: Appears afebrile. Alert and oriented. Mood and affect appropriate. Follows and participates in conversation appropriately. Respiratory effort is unlabored. No cough. Able to transition from sit to stand unassisted. Ambulates with bilaterally normal heel strike and toe off. Multiple widespread TTPs 16/16 bilaterally, including upper and lower extremities. Extrem General: Yes capillary refill normal, Yes no clubbing, cyanosis or edema and Yes no calf tenderness Left lower extremity: knee (Limited ROM due to pain. Knee brace is present.) Details: tenderness Location: of the patella and of the medial joint line, swelling (mild swelling global anterior knee) and crepitus; no ecchymosis, no deformity and no unusual warmth Results Reviewed Results Reviewed: MRI LEFT KNEE WITHOUT CONTRAST 11/11/24 HISTORY: M17.12 - Unilateral primary osteoarthritis, left knee COMPARISON: Correlation is made with plain films of the left knee dated 11/06/2024. FINDINGS: Bone marrow signal intensity is normal. There is a moderate suprapatellar joint effusion. There is no Gatica's cyst. There is an approximately 2.0 cm multiseptated cystic structure posterior to the medial tibial plateau, which may represent a ganglion cyst. The anterior and posterior cruciate ligaments and medial and lateral collateral ligaments are intact. The medial and lateral menisci are intact. The patellar and quadriceps tendons and patellar retinacula are unremarkable in appearance. The popliteus tendon is intact. There is moderate osteoarthritis of the patellofemoral compartment with cartilage loss and subchondral marrow changes. Milder changes are noted involving the medial compartment. IMPRESSION: 1. Moderate joint effusion. 2.0 cm probable ganglion cyst posterior to the medial tibial plateau. 3. Moderate patellofemoral osteoarthritis. Mild osteoarthritis of the medial compartment. XR KNEE 3 VIEWS LEFT, XR KNEE 1 VIEW RIGHT 11/06/24 HISTORY: M25.562 - Pain in left knee COMPARISON: Comparison is made with the prior examination dated 07/21/2023. FINDINGS: Three views of the left knee and a single standing AP view of the right knee are submitted. Osseous mineralization is normal. There is no fracture or dislocation. There is mild tricompartmental osteoarthritis without significant change from the prior study. On the right, there is mild narrowing of medial compartment. The soft tissues are unremarkable. IMPRESSION: Mild tricompartmental osteoarthritis of the left. Assessment & Plan Assessment & Plan (1) Patellofemoral arthralgia of left knee: Code(s): M25.562 - Pain in left knee Category: Medical (2) Fibromyalgia: Code(s): M79.7 - Fibromyalgia Category: Medical (3) Left knee pain: Code(s): M25.562 - Pain in left knee Category: Medical (4) Osteoarthritis of knees, bilateral: Code(s): M17.0 - Bilateral primary osteoarthritis of knee Category: Medical Qualifiers: Osteoarthritis type: primary Qualified Code(s): M17.0 - Bilateral primary osteoarthritis of knee Plan Interventional procedures presented include neuromodulation therapy and radiofrequency ablation for chronic left knee pain management. Scheduling diagnostic blocks has been recommended to ascertain the potential benefit of RFA or Sprint PNS device. Both interventional therapies are meant to address pain modulation while improving the patient's mobility and functionality. Informational pamphlets provided to patient. Established therapies, such as the existing knee brace, scheduled physical therapy, Tylenol, NSAIDs, ice, elevation, will continue. Schedule Diagnostic Left Saphenous Nerve Block with local and US guidance. Expectations, risks and benefits were reviewed. Patient is aware she will be contacted to schedule this procedure. Scripts provided for lidocaine patch and increased dose for gabapentin. Reviewed side effects and precautions. All questions were answered and the patient is in agreement of plan. Follow-up after injections and sooner as needed. Patient was informed and verbally consented to the use of an ambient scribe for clinic note documentation during this visit. Medications: New lidocaine 5% leave on most painful area for up to 12 hrs topical 30 days 30 ea 1RF pain M25.562 - Pain in left knee Changed From gabapentin 300 mg PO TID M17.0 - Bilateral primary osteoarthritis of knee, M25.562 - Pain in left knee, M79.7 - Fibromyalgia To gabapentin 400 mg PO TID 30 days 90 caps 0RF pain M17.0 - Bilateral primary osteoarthritis of knee, M25.562 - Pain in left knee, M79.7 - Fibromyalgia Discontinued oxycodone Partial Fill upon patient request. Discontinued Reason: Patient no longer taking 5 mg PO Q4H PRN 20 tabs 0RF pain Patient Instructions: - Review information regarding neuromodulation and radiofrequency ablation devices. - Await the diagnostic block schedule; pending insurance approval. - Continue current medications and therapies as directed. - Attend your upcoming physical therapy appointment. - Use a knee brace for stability support. - Report any exacerbation in symptoms or issues encountered with the discussed management strategies. Coding Level of Care Code New Pt Level 4 (72530) Complex EM visit Add On G2211 Diagnoses Patellofemoral arthralgia of left knee M25.562 Fibromyalgia M79.7 Left knee pain M25.562 Primary osteoarthritis of both knees M17.0 Osteoarthritis type: primary
[2025-01-16 09:07] VITALS: BP 141/78; PULSE 67; RESP 16; O2SAT 99; BMI 31.1
--- OUTSIDE RECORDS SUMMARY | 2025-01-16 09:24 | XMS_ITS ---
Author Name MS. Aba Kirkpatrick APRN Address [address] [place] [address] Phone [phone] [facility] Care Team Providers Care Chief Nuclear Medicine Technologist Name Role Phone Debbie Kirkpatrick Unavailable [phone] Unavailable Unavailable Unavailable DOROTHEA NEAL Unavailable [phone] Carina Baird Unavailable Unavailable Reason for Referral [...] Other problems related to [facility] facilities and other health care Active 2024-04-25 N/A Encounters Encounters Type Facility Date of Service Diagnosis/Co mplaint New patient, 30-44min 1 stable chronic or 2 minor; add modifier 95 for video, modifier 93 for phone [facility]05/2023 Major depressive disorder, recurrent, mildInsomnia, unspecifiedGeneralized anxiety disorderGastro-esophageal reflux disease without esophagitisDizziness and giddinessEssential (primary) hypertensionNeuralgia and neuritis, unspecifiedVitamin D deficiency, unspecifiedMild intermittent asthma, uncomplicated New patient, 30-44min 1 stable chronic or 2 minor; add modifier 95 for video, modifier 93 for phone [facility] 10[place]05/2023 New patient, 30-44min 1 stable chronic or 2 minor; add modifier 95 for video, modifier 93 for phone [facility] 10/05/2023 New patient, 30-44min 1 stable chronic or 2 minor; add modifier 95 for video, modifier 93 for phone [facility] 10/05/2023 New patient, 30-44min 1 stable chronic or 2 minor; add modifier 95 for video, modifier 93 for phone [facility] 10/05/2023 New patient, 30-44min 1 stable chronic or 2 minor; add modifier 95 for video, modifier 93 for phone [facility] 10/05/2023 Estab. patient 30-39min; chronic exacerbation, 2 stable chronic or 1 acute illness add add modifier 95 for video, (do not use for phone, instead use 80172-39) [facility] 04[place]/2024 Major depressive disorder, recurrent, mildInsomnia, unspecifiedGeneralized anxiety disorderGastro-esophageal reflux disease without esophagitisDizziness and giddinessEssential (primary) hypertensionNeuralgia and neuritis, unspecifiedVitamin D deficiency, unspecifiedMild intermittent asthma, uncomplicatedOther problems related to medical facilities and other health care Estab. patient 30-39min; chronic exacerbation, 2 stable chronic or 1 acute illness add add modifier 95 for video, (do not use for phone, instead use 49131-63) [facility] [place] 04/25/2024 Estab. patient 30-39min; chronic exacerbation, 2 stable chronic or 1 acute illness add add modifier 95 for video, (do not use for phone, instead use 64999-35) [facility] Estab. patient 30-39min; chronic exacerbation, 2 stable chronic or 1 acute illness add add modifier 95 for video, (do not use for phone, instead use 81006-88) [facility] Estab. patient 30-39min; chronic exacerbation, 2 stable chronic or 1 acute illness add add modifier 95 for video, (do not use for phone, instead use 26480-09) [facility] Estab. patient 30-39min; chronic exacerbation, 2 stable chronic or 1 acute illness add add modifier 95 for video, (do not use for phone, instead use 93603-04) [facility]/20[place] Estab. patient 30-39min; chronic exacerbation, 2 stable chronic or 1 acute illness add add modifier 95 for video, (do not use for phone, instead use 13096-36) [facility] Estab. patient 30-39min; chronic exacerbation, 2 stable chronic or 1 acute illness add add modifier 95 for video, (do not use for phone, instead use 35543-38) [facility] Estab. patient 30-39min; chronic exacerbation, 2 stable chronic or 1 acute illness add add modifier 95 for video, (do not use for phone, instead use 59564-11) [facility]/2024 Unlisted special service; to be used for medical record reviews and reporting CPTII codes (1111F, etc) [facility] 09/04/2024 Other specified health statu s Unlisted special service; to be used for medical record reviews and reporting CPTII codes (1111F, etc) [facility] Unlisted special service; to be used for medical record reviews and reporting CPTII codes (1111F, etc) [facility] [place]20[place] Vital Signs Date of [...] tive Time Current Smoking Status Never smoker 2024-12-30 10 Sex Female History of Procedures Procedures Service Procedure code Service date Servicing provider Phone# New patient, 30-44min 1 stable chronic or 2 minor; add modifier 95 for video, modifier 93 for phone [id number] 2023-10-05 No Data Available No Data Available [...] (do not use for phone, instead use 63862-36) 39637 2024-04-25 No Data Available No Data Availa [...] reviews and reporting CPTII codes (1111F, etc) 66585 2024-09-04 No Data Available No Data Availa ble SBP < 130 (3074F) 3074F 2024-09-04 No Data Available No Data Available DBP <80 (3078F) 3078F 2024-09-04 No Data Available No Data Available Functional Status Functional Category Effective Dates STUDENT COUNSELLOR assists with cooking, cl eaning, laundry, showering [...] Contact mental health professional:/ Transfer member to [address] [place] [address]/ Hydroxyzine (Vistaril) 25mg PO q6h PRN anxiety/ [...]
== END 2025-01-16 09:31 | disposition home or self-care (01) ==
LOC: HO.PMC 08:54
PROVIDERS: PCP Family Medicine; Referring Provider Family Medicine; Visit Provider Nurse Practitioner Family
DX: M25.562 Pain in left knee (principal); M79.7 Fibromyalgia; M17.0 Bilateral primary osteoarthritis of knee
CPT/HCPCS: 99204; G2211

== ENCOUNTER → 2025-01-16 08:54 | Outpatient (BNVA) | payer OTHER, SELFPAY | PROVIDERS: PCP Family Medicine; Referring Provider Family Medicine; Visit Provider Nurse Practitioner Family | DX: M17.0 Bilateral primary osteoarthritis of knee (principal); M79.7 Fibromyalgia | CPT/HCPCS: 99202 ==

== ENCOUNTER 2025-01-30 10:49 | Outpatient (RCR) | payer MEDICARE, SELFPAY ==
--- NOTE | 2025-01-26 15:54 | MHC.PT.EP ---
[facility] [place] Office [place] [facility] [place] Office [address] Hayley Galeano [address] [phone] F: [phone] F: [phone] F: [phone] F: [phone] Physical Therapy Plan of Care Date of Evaluation: 01/26/25 Date of Surgery: Diagnosis: LEFT knee pain, patellofemoral arthralgia of LEFT knee Assessment: Lety is a pleasant 54 y.o. female who is referred to PT by Ariel Morocho PA-C with Dx of patellofemoral arthralgia of LEFT knee. She has a history of chronic knee pain of 3-4 year duration, exhbits pain avoidance beliefs and increased sensitivity to any palpation and muscle guarding with both active and passive movements in fear of pain. Began today with more education, reassurance, and trial of TENS for an alternative pain control. Patient impairments include pain, limited knee ROM, weakness in L LE, antalgic gait with compensations. Patient current functional limitations are difficulty with walking (typically uses AD at home), getting in/out of chairs, bathing (needs assist and uses shower chair), ascend/descend stairs, unable to cook, clean, difficulty with lower body dressing. Patient will benefit from skilled PT to address aforementioned impairments and functional limitations to meet established goals. Frequency and Duration: The patient will be seen 2x/week for 4 weeks Short Term Goals: 2 weeks Patient demonstrates consistency and independence with HEP to self manage symptoms. Internal Controls Specialist Goals: 4 weeks Patient presents with increased L knee extension 0 degrees to restore mobility for normalized gait cycle with LRAD. Patient presents with increased L knee flexion 105 degrees to be able to perform sit to stand from low surfaces without compensation. Treatment Plan: Modalities to reduce pain, spasms and effusion. Manual therapy to restore motion and function. Therapeutic exercise to improve strength and flexibility. Neuromuscular re-education for posture and balance. Therapeutic activities to return to functional activities of daily living. Electronically signed by: Robert Babin, PT, DPT Please sign and return to therapist. Thank you for your referral.
--- NOTE | 2025-04-10 11:50 | MHC.PT.DC ---
[facility] [place] Office [place] Office [place] [facility] [address] Kavon Galeano [address] [facility] [phone] F: [phone] F: [phone] F: [phone] F: [phone] Physical Therapy Discharge Report Diagnosis: LEFT knee pain, patellofemoral arthralgia of LEFT knee Date of Surgery: Date of Evaluation: 01/26/25 Date of Discharge: 04/10/25 Treatments to Date: 2 Cancellations to Date: 3 No Shows to Date: 4 Discharge Status: Patient Elected to Stop Visit Non-compliance Discharge Summary: Lety was only seen for 2 PT sessions. She was given HEP to work on ROM and quad strength. TENS was utilized for pain control during sessions. She cancelled a few PT sessions as she was receiving a knee injection. She then ceased attending her PT sessions after the injection, not showing to her remaining sessions. She is therefore discharged from PT at this time. Electronically signed by: Robert Babin, PT, DPT Please sign and return to therapist. Thank you for your referral.
== END 2025-04-10 11:50 | disposition home or self-care (01) ==
LOC: HO.PT 10:49
PROVIDERS: PCP Family Medicine; Visit Provider Physician Assistant
DX: M25.562 Pain in left knee (principal)
CPT/HCPCS: 97014; 97110; 97162

== ENCOUNTER 2025-02-01 07:54 | Outpatient (REF) | payer MEDICARE, SELFPAY ==
--- OUTSIDE RECORDS SUMMARY | 2025-02-01 07:57 | XMS_ITS | Encounter Summary ---
Author Organization [employer] Address 75 [facility] 7t [place] [address] Care Team Providers Care Correction Lieutenant Name Role Phone Alvina Mccartney MD Primary Care Provider [phone]- [phone] Riky Tanner Unavailable Mariella Mcdonnell Unavailable Jina Vences MD Unavailable Shadia Morocho Unavailable Kendall Bates MD Unavailable Sara Pritchett Unavailable Encounter Details Date Type Department Care Team (Late st Contact Info) Description 01/29/2025 11:00 AM EDT Office Visit [facility] MEDICINE [address] [place], [place] [phone] Kath Soto MD [address] [place], [place] [phone] Fibromyalgia (Primary Dx); Chronic pain of left knee Social History [...] as of this encounter Progress Notes * Kath Soto MD - 01/29/2025 11:00 AM EDT Subjective: Lety Bates is a 54 y.o. female who presents to the office for Chronic Pain Clinic Group visits. Initial Group visit: 01/15/25 Group Visit Number: 3 Last PCP visit: [facility] 01/01/25 Group Confidentiality last signed: 01/15/25 Group Topic: Functional Goal Setting Updates: Lety would like to lose weight and understand her medical treatments Chronic Pain History: Associated Diagnosis: Fibromyalgia, knee OA Explained that FM is a type of nerve hypersensitivity and that physical activity is not contraindicated; in fact, it may improve symptomsrecommended our group acupuncture program, stress reduction, etc. -Encouraged acupuncture clinic 09/15/2023, hand out given -Rx for cane per her request 09/15/2023 -She has 2 STUDENT RECRUITER 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 Non-pharm tx: mobility aids Related Specialists: orthopedics, pain mgmt Functional Goals: be active with her grandchildren Other substance use: Tobacco: no Marijuana: no Alcohol: no Illicit substances: no Review of Systems Constitutional: Negative. Musculoskeletal: Positive for arthralgias, back pain and myalgias. Physical Exam Vitals and nursing note reviewed. Constitutional: Appearance: Normal appearance. HENT: Head: Normocephalic and atraumatic. Skin: General: Skin is warm and dry. Neurological: General: No focal deficit present. Mental Status: She is alert and oriented to person, place, and time. Psychiatric: Mood and Affect: Mood normal. Behavior: Behavior normal. Problem List Items Addressed This Visit Fibromyalgia - Primary Overview Explained that FM is a type of nerve hypersensitivity and that physical activity is not contraindicated; in fact, it may improve symptomsrecommended our group acupuncture program, stress reduction, etc. -Encouraged acupuncture clinic 09/15/2023, hand out given -Rx for cane per her request 09/15/2023 -She has 2 STUDENT RECRUITER 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 Chronic pain of left knee Overview -seen by Ariel Morocho PA-C of [facility] 11/07/23 -MR/MR knee LT wo con 11/14/24 IMPRESSION: Moderate joint effusion. 2.0 cm probable ganglion cyst posterior to the medial tibial plateau. Moderate patellofemoral osteoarthritis. Mild osteoarthritis of the medial compartment. -referred to pain management 01/01/25 -referred to chronic pain group 01/01/25 Current Assessment & Plan Pt attended and participated in chronic pain group today - good engagement with group model of care - continue to use combination of non-pharmacological modalities to address pain - followup in one month - continue followup with pain mgmt for radiofrequency ablation of genticulate nerves of L knee Follow up: 1 week for Group Chronic [facility]. Follow up as scheduled with PCP, sooner as needed. documented in this encounter Miscellaneous Notes * Assessment & Plan Note - Kath Soto MD - 01/29/2025 1:05 PM EDTAssociated Problem(s): Chronic pain of left knee Pt attended and participated in chronic pain group today - good engagement with group model of care - continue to use combination of non-pharmacological modalities to address pain - followup in one month - continue followup with pain mgmt for radiofrequency ablation of genticulate nerves of L knee documented in this encounter Plan of Treatment Upcoming Encounters Date Type Department Care Team (Late st Contact Info) Description 02/05/2025 11:00 AM EDT Office Visit [facility] MEDICINE [address] [place] [address] documented as of this encounter Visit Diagnoses Diagnosis Fibromyalgia- Primary Unspecified myalgia and myositis Chronic pain of left knee documented in this encounter Additional Health Concerns Assessment Noted Time PHQ-9 Depression Total Score: 17 025 9:49 AM EST documented as of this encounter Care Teams Correction Lieutenant Relationship Specialty Start Date End Date Alvina Mccartney MD [address] [place] [address] PCP - General Family Medicine 11/01/18 Riky Tanner [address] [facility] 3rd [place] [address] Cardiology 10/03/24 Mariella Mcdonnell [facility] [address] [address] Sleep Medicine 10/11/24 Jina Vences MD [address] [place] [address] Endocrinology 11/05/24 Shadia Morocho PA [address] [facility] [address] [place] [address] Orthopaedic Surgery 11/07/24 Kendall Bates MD 11 [facility] [address] [place] [address] General Surgery 11/28/24 Sara Pritchett [address] [facility] [address] [place] [address] Pain Medicine 01/16/25 documented as of this encounter
--- OUTSIDE RECORDS SUMMARY | 2025-02-01 07:57 | XMS_ITS | Encounter Summary ---
Author Organization [facility] Address [address] [facility] 7t [place] [address] Care Team Providers Care Regulatory Specialist Name Role Phone Alvina Mccartney MD Primary Care Provider [phone]- [phone] Riky Tanner Unavailable Mariella Mcdonnell Unavailable [phone] Jina Vences MD Unavailable Shadia Morocho Unavailable Kendall Bates MD Unavailable Sara Pritchett Unavailable Encounter Details Date Type Department Care Team (Late st Contact Info) Description 12/03/2022 Abstract [facility] MEDICINE [address] [place], [place] [phone] Alvina Mccartney MD 230 [place], [place] [phone] Social History Tobacco Use Types Packs/Day Years [...] Description 02/05/2025 11:00 AM EDT Office Visit [facility] [address] [facility] [place] [address] documented as of this encounter Procedures Procedure [...] on filedocumented in this encounter Care Teams Regulatory Specialist Relationship Specialty Start Date End Date Alvina Mccartney MD [address] [facility] [place] [address] PCP - General Family Medicine 11/01/18 Riky Tanner [address] 3rd [place] [address] Cardiology 10/03/24 Mariella Mcdonnell [address] [address] Sleep Medicine 10/11/24 Jina Vences MD [address] [place] [address] Endocrinology 11/05/24 Shadia Morocho PA [address] [place] [address] Orthopaedic Surgery 11/07/24 Kendall Bates MD [address] 3rd [place] [address] General Surgery 11/28/24 Sara Pritchett [address] [place] [address] Pain Medicine 01/16/25 documented as of this encounter
--- OUTSIDE RECORDS SUMMARY | 2025-02-01 07:57 | XMS_ITS | Encounter Summary ---
Author Organization [facility] Address [address] [facility] 7t [place] [address] Care Team Providers Care Mineral Engineer Name Role Phone Alvina Mccartney MD Primary Care Provider [phone] Riky Tanner Unavailable Mariella Mcdonnell Unavailable Jina Vences MD Unavailable Shadia Morocho Unavailable Kendall Bates MD Unavailable [phone] Sara Pritchett Unavailable Encounter Details Date Type Department Care Team (Late st Contact Info) Description 10/16/2022 Orders Only [facility] MEDICINE [address] [place] [address] [phone] Anel Epsinoza, RN Social History Tobacco Use Types Packs/Day [...] Description 02/05/2025 11:00 AM EDT Office Visit [facility] MEDICINE [address] [place] [phone] documented as of this encounter Visit Diagnoses Not on filedocumented in this encounter Care Teams Mineral Engineer Relationship Specialty Start Date End Date Alvina Mccartney MD 230 [place] [address] PCP - General Family Medicine 11/01/18 Riky Tanner [address] 3rd [place] [address] Cardiology 10/03/24 Mariella Mcdonnell [address] [address] Sleep Medicine 10/11/24 Jina Vences MD [address] [place] [address] Endocrinology 11/05/24 Shadia Morocho PA [address] [place] [address] Orthopaedic Surgery 11/07/24 Kendall Bates MD [address] [place] [address] General Surgery 11/28/24 Sara Pritchett [address] [place] [address] Pain Medicine 01/16/25 documented as of this encounter
--- OUTSIDE RECORDS SUMMARY | 2025-02-01 07:57 | XMS_ITS | Encounter Summary ---
Author Organization [employer] Address 75 [facility] 7t [place] [address] Care Team Providers Care Silo Tender Name Role Phone Alvina Mccartney MD Primary Care Provider [phone]- [phone] Riky Tanner Unavailable Mariella Mcdonnell Unavailable [phone] Jina Vences MD Unavailable Shadia Morocho Unavailable Kendall Bates MD Unavailable Sara Pritchett Unavailable Encounter Details Date Type Department Care Team (Latest Contact Info) Description 01/31/2025 Travel Social History Tobacco Use Types Packs/Day [...] Description 02/05/2025 11:00 AM EDT Office Visit [facility] MEDICINE [address] [place] [address] documented as of this encounter Visit Diagnoses Not on filedocumented in this encounter Additional Health Concerns Assessment Noted Time PHQ-9 Depression Total Score: 17 025 9:49 AM EST documented as of this encounter Care Teams Silo Tender Relationship Specialty Start Date End Date Alvina Mccartney MD [address] [place] [address] PCP - General Family Medicine 11/01/18 Riky Tanner [address] 3rd [place] [address] Cardiology 10/03/24 Mariella Mcdonnell [address] [address] Sleep Medicine 10/11/24 Jina Vences MD [address] [place] [address] Endocrinology 11/05/24 Shadia Morocho PA [address] [place] [address] Orthopaedic Surgery 11/07/24 Kendall Bates MD [address] 3rd [place] [address] General Surgery 11/28/24 Sara Pritchett [address] [place] [address] Pain Medicine 01/16/25 documented as of this encounter
--- OUTSIDE RECORDS SUMMARY | 2025-02-01 07:57 | XMS_ITS | Encounter Summary ---
Author Organization [employer] Address 75 [facility] 7t [place] [address] Care Team Providers Care Clipper Machine Name Role Phone Alvina Mccartney MD Primary Care Provider [phone] Riky Tanner Unavailable Mariella Mcdonnell Unavailable Jina Vences MD Unavailable Shadia Morocho Unavailable Kendall Bates MD Unavailable Sara Pritchett Unavailable Reason for Visit * Reason Comments Med Refill Encounter Details Date Type Department Care Team (Late st Contact Info) Description 01/18/2025 Refill [facility] MEDICINE [address] [place], [place] [phone] Alvina Mccartney MD [address] [place], [place] [phone] Mild intermittent asthma without complication Social History Tobacco Use Types Packs/Day Years [...] Description 02/05/2025 11:00 AM EDT Office Visit [facility] MEDICINE [address] [place] [address] documented as of this encounter Visit Diagnoses Diagnosis Mild intermittent asthma without complication documented in this encounter Additional Health Concerns Assessment Noted Time PHQ-9 Depression Total Score: 17 025 9:49 AM EST documented as of this encounter Care Teams Clipper Machine Relationship Specialty Start Date End Date Alvina Mccartney MD [address] [place] [address] PCP - General Family Medicine 11/01/18 Riky Tanner [address] 3rd [place] [address] Cardiology 10/03/24 Mariella Mcdonnell [address] [address] Sleep Medicine 10/11/24 Jina Vences MD [address] [place] [address] Endocrinology 11/05/24 Shadia Morocho PA [address] [place] [address] Orthopaedic Surgery 11/07/24 Kendall Bates MD [address] 3rd [place] [address] General Surgery 11/28/24 Sara Pritchett [address] [place] [address] Pain Medicine 01/16/25 documented as of this encounter
--- OUTSIDE RECORDS SUMMARY | 2025-02-01 07:57 | XMS_ITS | Encounter Summary ---
Author Organization [employer] Address [address] [facility] 7t [place] [address] Care Team Providers Care Blue Line Hanger Name Role Phone Alvina Mccartney MD Primary Care Provider [phone] Riky Tanner Unavailable Mariella Mcdonnell Unavailable Jina Vences MD Unavailable Shadia Morocho Unavailable Kendall Bates MD Unavailable Sara Pritchett Unavailable Reason for Visit * Reason Comments Med Refill Encounter Details Date Type Department Care Team (Late st Contact Info) Description 12/01/2024 Refill [facility] MEDICINE [address] [place], [place] [phone] Alvina Mccartney MD [address] [place], [place] [phone] Pain Social History Tobacco Use Types Packs/Day [...] Description 02/05/2025 11:00 AM EDT Office Visit [facility] MEDICINE [address] [place] [address] documented as of this encounter Visit Diagnoses Diagnosis Pain Generalized pain documented in this encounter Additional Health Concerns Assessment Noted Time PHQ-9 Depression Total Score: 8 07/26/20 23 10:55 AM EDT documented as of this encounter Care Teams Blue Line Hanger Relationship Specialty Start Date End Date Alvina Mccartney MD [address] [place] [address] PCP - General Family Medicine 11/01/18 Riky Tanner [address] [facility] 3rd [place] [address] Cardiology 10/03/24 Mariella Mcdonnell [facility] [address] [address] Sleep Medicine 10/11/24 Jina Vences MD [address] [place] [address] Endocrinology 11/05/24 Shadia Morocho PA [address] [place] [address] Orthopaedic Surgery 11/07/24 Kendall Bates MD [address] 3rd [place] [address] General Surgery 11/28/24 Sara Pritchett [address] [place] [address] Pain Medicine 01/16/25 documented as of this encounter
--- OUTSIDE RECORDS SUMMARY | 2025-02-01 07:57 | XMS_ITS | Encounter Summary ---
Author Organization [employer] Address 75 [facility] 7t [place] [address] Care Team Providers Care Advanced Manufacturing Engineer Name Role Phone Alvina Mccartney MD Primary Care Provider [phone] Riky Tanner Unavailable Mariella Mcdonnell Unavailable Jina Vences MD Unavailable Shadia Morocho Unavailable Kendall Bates MD Unavailable [phone] Sara Pritchett Unavailable Encounter Details Date Type Department Care Team (Late st Contact Info) Description 04/22/2023 Orders Only [facility] MEDICINE [address] [place], [place] [phone] Alvina Mccartney MD [address] [place], [place] [phone] Dizzy (Primary Dx) Social History Tobacco Use [...] Description 02/05/2025 11:00 AM EDT Office Visit [facility] MEDICINE [address] [place] [address] documented as of this encounter Visit Diagnoses Diagnosis Dizzy- Primary Dizziness and giddiness documented in this encounter Care Teams Advanced Manufacturing Engineer Relationship Specialty Start Date End Date Alvina Mccartney MD [address] [place] [address] PCP - General Family Medicine 11/01/18 Riky Tanner [address] [place] [address] Cardiology 10/03/24 Mariella Mcdonnell [address] [place] [address] Sleep Medicine 10/11/24 Jina Vences MD [address] [place] [address] Endocrinology 11/05/24 Shadia Morocho PA [address] [place] [address] Orthopaedic Surgery 11/07/24 Kendall Bates MD [address] 3rd [place] [address] General Surgery 11/28/24 Sara Pritchett [address] [place] [address] Pain Medicine 01/16/25 documented as of this encounter
--- OUTSIDE RECORDS SUMMARY | 2025-02-01 07:57 | XMS_ITS | Clinical Summary ---
Author Organization [employer] Address [address] [place] [address] Care Team Providers Care Sweat Band Separator Name Role Phone Alvina Mccartney MD Primary Care Provider [phone] Riky Tanner Unavailable Mariella Mcdonnell Unavailable Jina Vences MD Unavailable Shadia Morocho Unavailable Kendall Bates MD Unavailable Sara Pritchett Unavailable Allergies No known active allergies Medications amLODIPine (Norvasc) 10 MG tabletIndications :Essential hypertension TAKE 1 TABLET BY MOUTH EVERY MORNING 30 tablet 4 Active D3-1000 25 MCG (1000 UT) capsuleIndication s:Vitamin D deficiency TAKE 1 CAPSULE BY MOUTH EVERY MORNING 30 capsule 4 Active cetirizine (ZyrTEC) 10 MG tabletIndications :Allergic rhinitis, unspecified seasonality, unspecified trigger TAKE 1 TABLET BY MOUTH EVERY DAY 30 tablet 4 Active Ventolin HFA 108 (90 Base) MCG/ACT inhalerIndication s:Mild intermittent asthma without complication INHALE 1-2 PUFFS BY MOUTH EVERY 4 TO 6 HOURS NEEDED FOR COUGH OR SHORTNESS OF BREATH 4 Active mesalamine ER (Apriso) 0.375 g 24 hr capsuleIndication s:Irritable bowel syndrome, unspecified type TAKE 4 CAPSULES BY MOUTH EVERY MORNING 4 Active busPIRone (Buspar) 15 MG tabletIndications :Major depression single episode, in partial remission (CMS/HCC) Take 15 mg by mouth 2 times daily. Take 2 tab po bid per Dr. Rose Hester Active DULoxetine (Cymbalta) [address] capsuleIndication s:Major depression single episode, in partial remission (CMS/HCC) Take 30 mg by mouth Once per day. Do not crush or chew. Dr. Rose Hester Active zolpidem (Ambien) 10 MG tabletIndications :Major depression single episode, in partial remission (CMS/HCC) Take by mouth if needed at bedtime for sleep. Dr. Rose Hester Active lisinopril (Prinivil) 20 MG tabletIndications :Essential hypertension Take 1 tablet (20 mg) by mouth Once per day. 30 tablet 11 4 07/05/20 25 Active lidocaine (LMX 4) 4 % creamIndications: Neck pain Apply topically if needed in the morning, at noon, in the evening, and at bedtime for mild pain. 15 g 2 4 07/05/20 25 Active Fluticasone-Salme terol 500-50 MCG/ACT aerosol powderIndications :Mild intermittent asthma without complication INHALE 1 PUFF BY MOUTH TWICE DAILY RINSE MOUTH AFTER USING. 30 each 4 Active gabapentin (Neurontin) 300 MG capsuleIndication s:Pain TAKE 1 CAPSULE BY MOUTH THREE TIMES DAILY IN THE MORNING, EVENING, AND BEDTIME 90 capsule 5 Active celecoxib (CeleBREX) 200 MG capsule Take 1 capsule by mouth 2 times daily. 5 Active FT ClearLax 17 GM/SCOOP powder DISSOLVE 17 GRAMS IN 8 OUNCES OF WATER, COFFEE, OR TEA AND DRINK TWICE DAILY DIRECTED 5 Active gabapentin (Neurontin) 400 MG capsule 5 Active hydrOXYzine HCl (Atarax) 10 MG tablet Take 1 tablet by mouth every 8 (eight) hours if needed for anxiety. 5 Active Active Problems Problem Noted Date Diagnosed Date [...] (01/01/2025): -seen by Ariel Morocho PA-C of [facility] 11/07/23 -MR/MR knee LT wo con 11/14/24 IMPRESSION: Moderate joint effusion. 2.0 cm probable ganglion cyst posterior to the medial tibial plateau. Moderate patellofemoral osteoarthritis. Mild osteoarthritis of the medial compartment. -referred to pain management 01/01/25 -referred to chronic pain group 01/01/25 Assessment & Plan (01/29/2025 1:05 PM EDT): Pt attended and participated in chronic pain group today - good engagement with group model of care - continue to use combination of non-pharmacological modalities to address pain - followup in one month - continue followup with pain mgmt for radiofrequency ablation of genticulate nerves of L knee Assessment & Plan (01/23/2025 1:33 PM EDT): Pt attended and participated in chronic pain group today - good engagement with group model of care - continue to use combination of non-pharmacological modalities to address pain - followup in one month for theme nutrition and pain - continue followup with pain mgmt for radiofrequency ablation of genticulate nerves of l knee, also described SPRINT device to her Assessment & Plan (01/15/2025 12:59 PM EDT): Pt attended and participated in chronic pain group today - good engagement with group model of care - continue to use combination of non-pharmacological modalities to address pain - followup in one week for ongoing nutrition and teas Assessment & Plan (01/01/2025 5:44 PM EST): -seen by Ariel Morocho PA-C of [facility] 11/07/23 -MR/MR knee LT wo con 11/14/24 IMPRESSION: Moderate joint effusion. 2.0 cm probable ganglion cyst posterior to the medial tibial plateau. Moderate patellofemoral osteoarthritis. Mild osteoarthritis of the medial compartment. -referred to pain management 01/01/25 -referred to chronic pain group 01/01/25 Neck pain 07/05/2024 Overview (01/04/2025): Pt reports pain in neck, seemingly muscular in nature. -Will prescribe lidocaine patches to reevaluate. -seen by [facility] 01/02/25 given left knee steroid injection which she tolerated well. An order was placed for physical therapy to work on range of motion, glute hip hamstring and quad strengthening. She was also fit for a Genumed knee brace for patellar stability. If symptoms persist or worsen she will contact ortho office office otherwise follow up as needed. Assessment & Plan (07/05/2024 10:47 AM EDT): [...] describing symptoms of lightheadedness when turning head [id number] which sounds more like vertigo. No clear [...] due after 07/05/25 -eye care facilitated by [facility] -dental home is encouraged -Health care proxy [...] 9:42 PM EST): -Previously [place] [facility], last available consult note from 2019. -Referral to re-establish care with [facility] Essential hypertension 12/12/2018 Overview (10/03/2024): Followed by Dr. Riky Tanner MD at [facility]. Note from 09/2024 reviewed. -Blood pressure is at goal -Continue lifestyle modifications -Continue current medications -hydrochlorothiazide discontinued by Dr. Tanner 09/2024 Assessment & Plan (01/01/2025 5:24 PM EST): Followed by Dr. Riky Tanner MD at [facility]. Note from 09/2024 reviewed. [...] per her request 09/15/2023 -She has 2 H[employer] ASS[employer] 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 -Encouraged acupuncture clinic 09/15/2023, hand out given -Rx for cane per her request 09/15/2023 -She has 2 H[employer] ASS[employer] 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 Obstructive sleep apnea syndrome 12/12/2018 Overview (10/11/2024): Followed by [facility]. Sleep study 10/07/18 reveals severe SILVER. -Currently using CPAP nightly She started 11/05/2018 -seen by CIARA Lepe on 10/09/24 continue CPAP 14 cmH2O. Supplies are though [employer] Assessment & Plan (01/01/2025 5:24 PM EST): Followed by [facility]. Sleep study 10/07/18 reveals severe SILVER. -Currently using CPAP nightly She started 11/05/2018 -seen by CIARA Lepe on 10/09/24 continue CPAP 14 cmH2O. Supplies are though [employer] Assessment & Plan (07/21/2023 1:56 PM EDT): Followed by [facility]. Sleep study 10/07/18 reveals severe SILVER. -Currently [...] and therapist. No SI/HI. Reports going to [facility], where she sees her specialists. Assessment & Plan (01/01/2025 5:41 PM EST): At visit in 11/2017, we stopped depo, as we presumed was causing depression Depression has not improved, as she is being seen by psychiatrist and therapist. No SI/HI. Reports going to [facility], where she sees her specialists. Assessment [...] and therapist. No SI/HI. Reports going to [facility], where she sees her specialists. Resolved [...] Encounters Date Type Department Care Team Description 01/31/2025 Travel 01/29/2025 11:00 AM EDT Office Visit [facility] [address] [place] [phone] Kath Soto MD Fibromyalgia (Primary Dx); Chronic pain of left knee 01/29/2025 Travel 01/23/2025 Travel 01/22/2025 11:00 AM EDT Office Visit [facility] [address] [place] [phone] Kath Soto MD Fibromyalgia (Primary Dx); Chronic pain of left knee 01/22/2025 Travel 01/18/2025 Travel 01/18/2025 Refill [facility] [address] [place] [phone] Alvina Mccartney MD Mild intermittent asthma without complication 01/17/2025 Telephone [facility] [address] [place] [address] [phone] Alvina Mccartney MD Mondays Chronic Pain Group 01/15/2025 11:00 AM EDT Office Visit [facility] [address] [place] [address] [phone] Kath Soto MD Low back pain at multiple sites (Primary Dx); Fibromyalgia; Chronic pain of left knee 01/15/2025 Travel 01/13/2025 Travel 01/12/2025 Telephone [facility] [address] [place] [address] [phone] Alvnia Mccartney MD Schedule Wednesday Pain Group appt 01/03/2025 Orders Only [facility] [address] [place] [address] [phone] Alvina Mccartney MD Breast pain, left (Primary Dx); Screening mammogram for breast cancer 01/02/2025 Telephone [facility] [address] [place] [address] [phone] Alvina Mccartney MD 01/01/2025 9:45 AM EST Office Visit [facility] [address] [place] [address] [phone] Alvina Mccartney MD Essential hypertension (Primary Dx); [...] knee 01/01/2025 Travel 12/31/2024 Travel 12/27/2024 Refill [facility] [address] [place] [address] [phone] Alvina Mccartney MD Pain 12/25/2024 Telephone [facility] [address] [place] [address] [phone] Alvina Mccartney MD chartprep 12/19/2024 Patient Outreach [facility] [address] [place] [address] [phone] Alvina Mccartney MD Pre-visit Planning (Pre-visit planning - LVM ) 12/01/2024 Refill [facility] [address] [place] [address] [phone] Alvina Mccartney MD Pain 12/01/2024 Refill [facility] [address] [place] [address] [phone] Alvina Mccartney MD Pain 11/11/2024 Orders Only [facility] External Provider, [facility] Chronic pain of left knee (Primary Dx) 11/10/2024 Orders Only GENERIC EXTERNAL DATA DEPARTMENT Provider, Generic External Data 11/09/2024 Orders Only [facility] External Provider, [facility] Adrenal nodule ([facility]/HCC) (Primary Dx) 11/09/2024 Telephone [facility] [address] [place] [address] Berto Schroeder [place] December recall 11/06/2024 Orders Only GENERIC EXTERNAL DATA DEPARTMENT Provider, Generic External Data from Last 3 Months Immunizations Name Administration [...] 01/01/2025 9:25 AM EST Plan of Treatment Upcoming Encounters Date Type Department Care Team (Late st Contact Info) Description 02/05/2025 11:00 AM EDT Office Visit [facility] [address] [place] [address] Health Maintenance Due Date Last Done Comments [...] 01/01/2025 SDOH Screening 01/01/2026 01/01/2025 Tobacco Screening 01/29/2026 01/29/2025 Cervical Cancer Screening 07/26/2028 HPV/Cotest 07/26/2028 07/26/2023, [...] [facility] ?[address] ?[place] [address] ? Magnetic Resonance Report ? Signed ? Patient: Lety Bates ?MR#: [id number] ?? 1571 ? : 1970 ?Acct:[id number] ? Age/Sex: 54 / F ?ADM Date: //25 ? Loc: HO.MRI ? Attending Dr: Ariel Morocho PA-C ? Ordering Physician: Ariel Morocho PA-C ?? Date of Service: 11/11/24 ?? Procedure(s): MR knee LT wo con ?? Accession Number(s): [id number] ? cc: Alvina Mccartney MD; Ariel Morocho [...] ??Elder Esparza MD ??11/14/2024 08:33 AM EST ? Dictated By: ?Elder Esparza MD ? Signed By: ?<Electronically signed by Elder Esparza MD in OV> ?11/14/24 0833 ? DD/ 51 ? TD/TT: 11/11/242014 ? Disaster Or Damage Control Specialist: ? Procedure Note Talya Mcfadden - 11/14/[address] [address] Magnetic Resonance Report Signed Patient: Luann Bates#: [id number] 1571 : 1970Acct:[id number] Age/Sex: 54 / FADM Date: 11/11/24 Loc: HO.MRI Attending Dr: Ariel Morocho PA-C Ordering Physician: Ariel Morocho PA-C Date of Service: 11/11/24 Procedure(s): MR knee LT wo con Accession Number(s): [id number] cc: Alvina Mccartney MD; Ariel Morocho PA-C [...] OV> 11/14/24 0833 DD/ 51 TD/TT: 11/11/242014 Disaster Or Damage Control Specialist: [facility] External Provider IM MRI PROCEDURES Final Result * Dexamethasone (11/10/2024 8:10 AM EST) Pathologist [facility] Dexamethasone 260 ng/dL [facility] Comment:Reference Ranges for Dexamethasone:Baseline: Less than 20 ng/dL1 mg dexamethasone overnight: 180-550 ng/dL (8:00-10:00 AM)This test was developed and its analytical performancecharacteristics have been determined by [employer].It has not been cleared or approved by FDA. This assay hasbeen validated pursuant to the CLIA regulations and is usedfor clinical purposes.THIS TEST WAS PERFORMED AT:[employer] [id number] [place] [address]ITRAMTIA COTTON MD,PHD,JENNIFER 11/10/2024 8:10 AM EST 11/10/2024 8:10 AM EST Generic External Data Provider LAB BLOOD ORDERAB LES Final Result Performing Organization Address [facility] Co de Phone Number [facility] [address] [place] [phone] * Cortisol Random (11/10/2024 8:10 AM EST) Only the most recent of2 resultswithin the time period is included. [facility] Cortisol Random <1.0 ug/dL [facility] Comment:Reference Range*: Be fore 10 am 6.2-19.4 ug/dL After 5 pm 2.3-11.9 ug/dL*Please interpret above results accordingly.This test was performed using the LOOKK chemiluminescentmethod. Values obtained from different assay methods cannotbe used interchangeably.Patients receiving fludrocortisone, prednisolone orprednisone may show artificially elevated cortisol valuesdue to cross-reactivity. 11/10/2024 8:10 AM EST 11/10/2024 8:10 AM EST us Generic External Data Provider LAB BLOOD ORDERAB LES Final Result Performing Organization Address [facility]/ZIP Co de Phone Number [facility] [address] [place] [phone] * (ABNORMAL) ACTH, Plasma (11/10/2024 8:10 AM EST) Only the most recent of2 resultswithin the time period is included. ACTH, Plasma <5(A) 6 - 50 pg/mL [facility] Comment:Reference range appl ies only to specimens collectedbetween 7am-10am.THIS TEST WAS PERFORMED AT:[employer]/[facility] [place] [address]TIDKLRYFERMÍN CHEUNG MD,PHD 11/10/2024 8:10 AM EST 11/10/2024 8:10 AM EST us Generic External Data Provider LAB BLOOD ORDERAB LES Final Result [facility] [address] [place] [phone] * CT Abdomen Pelvis w/o Contrast (11/09/2024 4:44 PM EST) Anatomical Region Laterality Modality Body, Pelvis, Abdomen Computed T omography 11/09/2024 4:44 PM EST Narrative 11/13/2024 1:20 PM EST ? [facility] ?[address] ?[place] [address] ? CT Scan Report ? Signed ? Patient: Lety Bates ?MR#: [id number] ?? 1571 ? : 1970 ?Acct:[id number] ? Age/Sex: 54 / F ?ADM Date: 11/09/24 ? Loc: HO.CT ? Attending Dr: Kendall Bates MD ? Ordering Physician: Kendall Bates MD ?? Date of Service: 11/09/24 ?? Procedure(s): CT abdomen pelvis wo IV con ?? Accession Number(s): [id number] ? cc: Alvina Mccartney MD; Kendall Bates MD ? Report Number: ?? [id number]: Total DLP = ??506.00 mGy-cm ?? EXAMINATION: [...] DD/ 1644 ? TD/TT: 11/09/24 1651 ? Disaster Or Damage Control Specialist: ? Procedure Note Donxochiltnedainterpreter, Image - 11/13/[address] [address] [address] Scan Report Signed Patient: Luann Bates#: [id number] 1571 : 1970Acct:[id number] Age/Sex: 54 / FADM Date: 11/09/24 Loc: HO.CT Attending Dr: Kendall Bates MD Ordering Physician: Kendall Bates MD Date of Service: 11/09/24 Procedure(s): CT abdomen pelvis wo IV con Accession Number(s): [id number] cc: Alvina Mccartney MD; Kendall Bates MD Report Number: [id number]: Total DLP = 506.00 mGy-cm EXAMINATION: CT [...] by: Elder Esparza MD 11/13/2024 01:17 PM [facility] Dictated By: Elder Esparza MD Signed By: <Electronically signed by Elder Esparza MD in OV> 11/13/24 1317 DD/ 1644 TD/TT: 11/09/24 1651 Disaster Or Damage Control Specialist: [facility] External Provider IMG CT PROCEDURES Final Result * Metanephrines, Fractionated, Free, LC/MS/MS, Plasma (11/06/2024 7:50 AM EST) Metanephrine, Free 49 <=57 pg/mL [facility] Comment:This test was develo ped and its analytical performancecharacteristics have been determined by [place]. It hasnot been cleared or approved by the U.S. Food and DrugAdministration. This assay has been validated pursuantto the CLIA regulations and is used for clinicalpurposes. Normetanephrine, Free 81 <=148 pg/mL [facility] Comment:This test was develo ped and its analytical performancecharacteristics have been determined by [employer] [place], [place]. It hasnot been cleared or approved by the U.S. Food and DrugAdministration. This assay has been validated pursuantto the CLIA regulations and is used for clinicalpurposes. Total, Free (MN+NMN) 130 <=205 pg/mL [facility] Comment: For additional information, please refer tohttp://education.Skytap/faq/MetFractFree(This link is being provided for informational/educatioinformational/educational purposes only.)Elevations >4-fold upper reference range: stronglysuggestive of a pheochromocytoma(1).Elevations >1- 4-fold upper reference range:significant but not diagnostic, may be due tomedications or stress. Suggest running 24 hr urinefractionated metanephrines and/or serum Chromagranin Afor confirmation.Reference:(1)Janell Arroyo, Plasma Chromogranin Aor Urine Fractionated Metanephrines Follow-Up TestingImproves the Diagnostic Accuracy of Plasma FractionatedMetanephrines for Pheochromocytoma. The Journal ofClinical Endocrinology # Metabolism 93(1), 91-95, 2008.This test was developed and its analytical performancecharacteristics have been determined by [employer] [place], [place]. It hasnot been cleared or approved by the U.S. Food and DrugAdministration. This assay has been validated pursuantto the CLIA regulations and is used for clinicalpurposes.THIS TEST WAS PERFORMED AT:[employer] [id number] [place] [address] ??[id number] CHEUNG MD,PHD 11/06/2024 7:50 AM EST 11/06/2024 7:56 AM EST us Generic External Data Provider LAB BLOOD ORDERAB LES Final Result [facility] [address] [place] [phone] * Aldosterone, LC/MS/MS (11/06/2024 7:50 AM EST) Aldosterone, LC/MS/MS 4 see note ng/dL [facility] Comment:Unable to flag abnor mal result(s), please refer to reference range(s) below:Adult Reference Ranges for Aldosterone, LC/MS/MS: Upright 8:00 - 10:00 am < or = 28 ng/dL Upright 4:00 - 6:00 pm < or = 21 ng/dL Supine 8:00 - 10:00 am 3 - 16 ng/dLThis test was developed and its analytical performancecharacteristics have been determined by [employer] [place], [place]. It hasnot been cleared or approved by the U.S. Food and DrugAdministration. This assay has been validated pursuantto the CLIA regulations and is used for clinicalpurposes.THIS TEST WAS PERFORMED AT:[employer] [address]FHQXQFHFERMÍN CHEUNG MD,PHD 11/06/2024 7:50 AM EST 11/06/2024 7:56 AM EST us Generic External Data Provider LAB BLOOD ORDERAB LES Final Result Performing Organization Address [facility] Co de Phone Number [facility] [address] [place] [phone] * Plasma Renin Activity, LC/MS/MS (11/06/2024 7:50 AM EST) Pathologist [facility] Plasma Renin Activity, LC/MS/MS 0.85 0.25 - 5.82 ng/mL/h [facility] Comment:This test was develo ped and its analytical performancecharacteristics have been determined by [employer] [place], [place]. It hasnot been cleared or approved by the U.S. Food and DrugAdministration. This assay has been validated pursuantto the CLIA regulations and is used for clinicalpurposes.THIS TEST WAS PERFORMED AT:[employer]/[facility] [place] [address]WWUBXDEFERMÍN CHEUNG MD,PHD 11/06/2024 7:50 AM EST 11/06/2024 7:56 AM EST Generic External Data Provider LAB BLOOD ORDERAB LES Final Result Performing Organization Address [facility] de Phone Number [facility] [address] [place] [phone] * DHEA Sulfate (11/06/2024 7:50 AM EST) Pathologist [facility] DHEA Sulfate 74 5 - 167 mcg/dL [facility] Comment:THIS TEST WAS PERFOR MED AT:[employer] [address] [address]QGQYZSHADE CALIX MD 11/06/2024 7:50 AM EST 11/06/2024 7:56 AM EST Generic External Data Provider LAB BLOOD ORDERAB LES Final Result Performing Organization Address [facility] Co de Phone Number [facility] [address] [place] [phone] * (ABNORMAL) Basic Metabolic Panel (11/06/2024 7:50 AM EST) Pathologist [facility] Sodium 142 135 - 145 mmol/L [facility] Potassium 4.0 3.3 - 5.1 mmol/L [facility] Chloride 109(H) 96 - 108 mmol/L [facility] Carbon Dioxide 25 22 - 29 mmol/L [facility] Anion Gap 12 12 - 20 [facility] Urea Nitrogen (BUN) 23(H) 9 - 16 mg/dL [facility] Creatinine, Serum 0.75 0.5 - 1.4 mg/dL [facility] Estimated Glomerular Filt Rate >60 [facility] Comment:Chronic Kidney Disea se: Estimated GFR < 60 mL/min/1.79d3Niucdi Kidney Disease: Estimated GFR < 15 mL/min/1.73m2 Glucose 75 60 - 115 mg/dL [facility] Calcium 9.8 8.4 - 10.2 mg/dL [facility] 11/06/2024 7:50 AM EST 11/06/2024 7:56 AM EST us Generic External Data Provider LAB BLOOD ORDERAB LES Final Result [facility] [address] [place] [address] [phone] * (ABNORMAL) Lipid Panel, Standard (07/08/2024 9:02 AM EDT) Pathologist [facility] Triglycerides 101 <150 mg/dL [facility] Comment:Desirable Triglyceri de: less than 150 mg/dLBorderline High Triglyceride 150-199 mg/dLHigh Triglyceride: 200-499 mg/dLVery High Triglyceride: greater than or equal to 5OO mg/dL Cholesterol 184 <200 mg/dL [facility] Comment:Desirable Cholestero l: less than 200 mg/dLBorderline High Cholesterol: 200-239 mg/dLHigh Cholesterol: greater than 239 mg/dL LDL Cholesterol Calculated 128(H) <100 mg/dL [facility] Comment:Desirable LDL: less than 100 mg/dLNear Optimal/Above Optimal LDL: 110- 129 mg/dLBorderline High LDL: 130-159 mg/dLHigh LDL: 160-189 mg/dLVery High LDL: greater than or equal to 190 mg/dL HDL Cholesterol 36(L) >40 mg/dL [facility] Comment:Desirable HDL: great er than 40 mg/dL Note: This HDL assay may give artificially low results in patients with liver disease. Blood Venous blood specimen / Unknown 07/08/2024 9:02 AM EDT 07/08/2024 9:02 AM EDT us Alvina Mccartney MD LAB BLOOD ORDERABLES Final Result Performing Organization Address City/State/[facility] Co de Phone Number [facility] [address] [place] [phone] * POCT HGB A1C (07/05/2024 10:53 AM EDT) Hemoglobin A1C 5.9 4.0 - 6.0 % QC Media Lot # [id number] Lot# Expiration Date [id number] Blood 07/05/2024 10:5 3 AM EDT us Alvina Mccartney MD POINT OF CARE TEST ENTER/E DIT ORDERABLES Final Result * Hm Colonoscopy (04/04/2024) Colonoscopy Normal Normal 04/04/2024 Mil Alvarado MD HEALTH MAINTENANCE Final Result * BI Mammogram Screening Tomosynthesis Bilateral (12/01/2023 2:40 PM EST) Anatomical Region Laterality Modality Breast Bilateral Mammography 12/01/2023 2:40 PM EST Narrative 12/23/2023 9:55 PM EST ? [facility] ? [address] ?[place] [address] ? Mammography Report ? Signed ? Patient: Paulo,Lety ?MR#: [id number] ?? [id number] ? : 1970 ?Acct:[id number] ? Age/Sex: 53 / F ?ADM Date: 12/01/23 ? Loc: HO.MAMMO ? Attending Dr: Alvina Mccartney MD ? Ordering Physician: Alvina Mccartney MD ?Results: 2B ?? enign Findings ? Date of Service: 12/01/23 ?Follow Up: 1 Year From Orig ?? inal Mammogram ? Procedure(s): MM tomosynthesis screening BI ?? Accession Number(s): [id number] ? cc: Alvina Mccartney MD ? EXAMINATION: [...] 12/23/232151 ? DD/ 1440 ? TD/TT: ? Disaster Or Damage Control Specialist: ? Procedure Note Lesa, Image - 12/23/2023 [facility] [address] [place] [address] Mammography Report Signed Patient: Leidy BatesnMR#: [id number] : 1970Acct:[id number] Age/Sex: 53 / FADM Date: 12/01/23 Loc: HO.MAMMO Attending Dr: Alvina Mccartney MD Ordering Physician: Alvina Mccartney MDResults: 2B enign Findings Date of Service: 12/01/23Follow Up: 1 Year From Orig inal Mammogram Procedure(s): MM tomosynthesis screening BI Accession Number(s): [id number] cc: Alvina Mccartney MD EXAMINATION: MM SCREENING [...] MD in OV> 12/23/232151 DD/ 1440 TD/TT: Disaster Or Damage Control Specialist: Alvina Mccartney MD IMG BI PROCEDURES Edited R esult - Final * Hepatitis C Ab (07/29/2023 9:23 AM EDT) Hepatitis C Antibody Nonreactive Nonreactive [facility] Comment:Antibodies to HCV no t detected; does not exclude early acuteHCV infection. Blood 07/29/2023 9:23 AM EDT 07/29/2023 11:00 AM EDT Alvina Mccartney MD LAB BLOOD ORDERABLES Final Result [facility] [address] [place] [phone] * HPV mRNA E6/E7 w/Reflex to HPV Genotypes 16, 18/45 (07/26/2023 10:57 AM EDT) HPV nRNA E6/E7 Not Detected Not Detected [facility] Comment:Methodology: Transcr iption-Mediated AmplificationThis assay detects E6/E7 viral messenger RNA (mRNA) from 14high-risk HPV types (16,18,31,33,35,39,45,51,52,56,58,59,66,68).Cervical sources are required for HPV testing.If a vaginal source from a patient who has had atotal hysterectomy with removal of cervix wassubmitted, please contact the testing laboratoryfor alternative testing options.For additional information, please refer [email or web address]/faq/COP628x8(This link if provided for information/educational purposes only.)THIS TEST WAS PERFORMED AT:[facility] [place] [phone] CALIX MD HPV mRNA E6/E7 TNP [facility] HPV 16 RNA TNP [facility] HPV 18/45 RNA [facility] 07/26/2023 10:5 7 AM EDT 07/27/2023 9:00 AM EDT Alvina Mccartney MD LAB CYTOLOGY ORDERABLES Fi nal Result Performing Organization Address City/State/[facility] Co de Phone Number [facility] [address] [place] [address] [phone] * Pap Smear (07/26/2023 10:57 AM EDT) 07/26/2023 10:5 7 AM EDT 07/27/2023 9:00 AM EDT Narrative [facility] - 08/02/2023 1:35 PM EDT ----- ------- Name: Lety Bates ? Age/Sex: 53/F ? : 1970 Unit#: [id number] ?? Attend Dr: Alvina Mccartney MD ?Re07/26/23 ?Status: DEP REF ? Location: .[facility] ? Disch: ? ----- ------- SPEC : [id number] ?RECD: 07/27/23 ? STATUS: ??SOUT ? REQ NUM: [id number] ? AMANDA: 07/26/23-1056 ? SUBM DR: Alvina [...] 66, 68) ?? HPV testing performed by [facility], [place], [place]. ??See reference laboratory ?? pion of the EMR for entire report. ?Clinical Information LMP: Unknown date Previous PAP test: Unknown date/findings ? Material Received ?? ThinPrep-Vaginal/Cervical ----- ------- Signed (signature on file) JUSTIN Arambula (ASCP) 08/02/23 1335 ? ----- ------- ? END OF REPORT ? us Alvina Mccartney MD LAB CYTOLOGY ORDERABLES Fi nal Result [facility] [address] [place] [phone] * HM HIV 1/2 Antigen and Antibody (01/21/2021) HIV Ag/Ab Nonreactive Historical Provider HEALTH MAINTENANCE Final Result from Last 3 Months or Most Recently Relevant [place] [address] [facility] [place] [address] [place] [address] Advance Directives Documents on File Type Date Recorded Patient Noteman Expl anation Advance Directives and Living Will 07/07/2024 1:01 PM Health Care Proxy Care Teams Sweat Band Separator Relationship Specialty Start Date End Date Carson, MD Alvina [address] [place] [address] PCP - General Family Medicine 11/01/18 Riky Tanner [address] 3rd Floor [place], [place] Cardiology 10/03/24 Mariella Mcdonnell [address] [address] Sleep Medicine 10/11/24 Jina Vences MD [address] [place] [address] Endocrinology 11/05/24 Shadia Morocho PA [address] [place] [address] Orthopaedic Surgery 11/07/24 Kendall Bates MD [address] 3rd [place] [address] General Surgery 11/28/24 Sara Pritchett [address] [place] [address] Pain Medicine 01/16/25
--- OUTSIDE RECORDS SUMMARY | 2025-02-01 07:57 | XMS_ITS | Encounter Summary ---
Author Organization [employer] Address 75 [facility] 7t [place] [address] Care Team Providers Care Decorator Mannequin Name Role Phone Alvina Mccartney MD Primary Care Provider [phone] Riky Tanner Unavailable Mariella Mcdonnell Unavailable [phone] Jina Vences MD Unavailable Shadia Morocho Unavailable Kendall Bates MD Unavailable Sara Pritchett Unavailable Reason for Visit * Reason Comments Med Refill Encounter Details Date Type Department Care Team (Late st Contact Info) Description 06/05/2024 Refill [facility] [address] [place], [place] [phone] Alvina Mccartney MD [address] [place], [place] [phone] Pain Social History Tobacco Use Types Packs/Day [...] Description 02/05/2025 11:00 AM EDT Office Visit [facility] [address] [place] [address] documented as of this encounter Visit Diagnoses Diagnosis Pain Generalized pain documented in this encounter Additional Health Concerns Assessment Noted Time PHQ-9 Depression Total Score: 8 07/26/20 23 10:55 AM EDT documented as of this encounter Care Teams Decorator Mannequin Relationship Specialty Start Date End Date Alvina Mccartney MD [address] [place] [address] PCP - General Family Medicine 11/01/18 Riky Tanner 11 [facility] 3rd [place] [address] Cardiology 10/03/24 Mariella Mcdonnell [facility] [address] [address] Sleep Medicine 10/11/24 Jina Vences MD [address] [place] [address] Endocrinology 11/05/24 Shadia Morocho PA [address] [place] [address] Orthopaedic Surgery 11/07/24 Kendall Bates MD [address] 3rd [place] [address] General Surgery 11/28/24 Sara Pritchett [address] [place] [address] Pain Medicine 01/16/25 documented as of this encounter
--- OUTSIDE RECORDS SUMMARY | 2025-02-01 07:57 | XMS_ITS | Encounter Summary ---
Author Organization [employer] Address 75 [facility] 7t [place] [address] Care Team Providers Care Library Science Instructor Name Role Phone Alvina Mccartney MD Primary Care Provider [phone] Riky Tanner Unavailable Mariella Mcdonnell Unavailable [phone] Jina Vences MD Unavailable Shadia Morocho Unavailable Kendall Bates MD Unavailable Sara Pritchett Unavailable Encounter Details Date Type Department Care Team (Latest Contact Info) Description 01/29/2025 Travel Social History Tobacco Use Types Packs/Day [...] Description 02/05/2025 11:00 AM EDT Office Visit [facility] [address] [place] [address] documented as of this encounter Visit Diagnoses Not on filedocumented in this encounter Additional Health Concerns Assessment Noted Time PHQ-9 Depression Total Score: 17 025 9:49 AM EST documented as of this encounter Care Teams Library Science Instructor Relationship Specialty Start Date End Date Alvina Mccartney MD [address] [place] [address] PCP - General Family Medicine 11/01/18 Riky Tanner [address] 3rd [place] [address] Cardiology 10/03/24 Mariella Mcdonnell [address] [address] Sleep Medicine 10/11/24 Jina Vences MD [address] [place] [address] Endocrinology 11/05/24 Shadia Morocho PA [address] [place] [address] Orthopaedic Surgery 11/07/24 Kendall Bates MD [address] 3rd [place] [address] General Surgery 11/28/24 Sara Pritchett [address] [place] [address] Pain Medicine 01/16/25 documented as of this encounter
--- OUTSIDE RECORDS SUMMARY | 2025-02-01 07:57 | XMS_ITS ---
Author Name MS. Aba Kirkpatrick APRN Address [address] [place] [address] Phone [phone] [facility] Care Team Providers Care Vector Control Assistant Name Role Phone Debbie Kirkpatrick Unavailable [phone] Unavailable Unavailable Unavailable DOROTHEA NEAL Unavailable [phone] Carina Baird Unavailable Unavailable Reason for Referral [...] Active 2023-10-05 N/A Other problems related to [facility] facilities and other health care Active 2024-04-25 N/A Encounters Encounters Type Facility Date of Service Diagnosis/Co mplaint New patient, 30-44min 1 stable chronic or 2 minor; add modifier 95 for video, modifier 93 for phone [facility] 10/05/2023 Major depressive disorder, recurrent, mildInsomnia, unspecifiedGeneralized anxiety disorderGastro-esophageal reflux disease without esophagitisDizziness and giddinessEssential (primary) hypertensionNeuralgia and neuritis, unspecifiedVitamin D deficiency, unspecifiedMild intermittent asthma, uncomplicated New patient, 30-44min 1 stable chronic or 2 minor; add modifier 95 for video, modifier 93 for phone [facility] 10/05/2023 New patient, 30-44min 1 stable chronic or 2 minor; add modifier 95 for video, modifier 93 for phone [facility]2023 New patient, 30-44min 1 stable chronic or 2 minor; add modifier 95 for video, modifier 93 for phone [facility]/2023 New patient, 30-44min 1 stable chronic or 2 minor; add modifier 95 for video, modifier 93 for phone [facility] 10/[place]/2023 New patient, 30-44min 1 stable chronic or 2 minor; add modifier 95 for video, modifier 93 for phone [facility] 10/[place]/2023 Estab. patient 30-39min; chronic exacerbation, 2 stable chronic or 1 acute illness add add modifier 95 for video, (do not use for phone, instead use 95088-94) [facility] 04[place]25/2024 Major depressive disorder, recurrent, mildInsomnia, unspecifiedGeneralized anxiety disorderGastro-esophageal reflux disease without esophagitisDizziness and giddinessEssential (primary) hypertensionNeuralgia and neuritis, unspecifiedVitamin D deficiency, unspecifiedMild intermittent asthma, uncomplicatedOther problems related to medical facilities and other health care Estab. patient 30-39min; chronic exacerbation, 2 stable chronic or 1 acute illness add add modifier 95 for video, (do not use for phone, instead use 04834-94) [facility] 04/25/2024 Estab. patient 30-39min; chronic exacerbation, 2 stable chronic or 1 acute illness add add modifier 95 for video, (do not use for phone, instead use 32822-48) [facility]/20[place] Estab. patient 30-39min; chronic exacerbation, 2 stable chronic or 1 acute illness add add modifier 95 for video, (do not use for phone, instead use 94928-63) [facility]/20[place] Estab. patient 30-39min; chronic exacerbation, 2 stable chronic or 1 acute illness add add modifier 95 for video, (do not use for phone, instead use 10200-05) [facility]/20[place] Estab. patient 30-39min; chronic exacerbation, 2 stable chronic or 1 acute illness add add modifier 95 for video, (do not use for phone, instead use 50153-58) [facility]/20[place] Estab. patient 30-39min; chronic exacerbation, 2 stable chronic or 1 acute illness add add modifier 95 for video, (do not use for phone, instead use 60893-44) [facility]/20[place] Estab. patient 30-39min; chronic exacerbation, 2 stable chronic or 1 acute illness add add modifier 95 for video, (do not use for phone, instead use 36575-76) [facility]/20[place] Estab. patient 30-39min; chronic exacerbation, 2 stable chronic or 1 acute illness add add modifier 95 for video, (do not use for phone, instead use 50858-91) [facility] 04/25/2024 Unlisted special service; to be used for medical record reviews and reporting CPTII codes (1111F, etc) [facility] 09/04/2024 Other specified health statu s Unlisted special service; to be used for medical record reviews and reporting CPTII codes (1111F, etc) [facility]/04/2024 Unlisted special service; to be used for medical record reviews and reporting CPTII codes (1111F, etc) [facility] 09/04/2024 Vital Signs Date of Collection [...] tive Time Current Smoking Status Never smoker 3 Sex Female History of Procedures Procedures Service Procedure code Service date Servicing provider Phone# New patient, 30-44min 1 stable chronic or 2 minor; add modifier 95 for video, modifier 93 for phone 14834 2023-10-05 No Data Available No Data Available [...] (do not use for phone, instead use 68971-45) 94622 2024-04-25 No Data Available No Data Availa [...] reviews and reporting CPTII codes (1111F, etc) 70010 2024-09-04 No Data Available No Data Availa ble SBP < 130 (3074F) 3074F 2024-09-04 No Data Available No Data Available DBP <80 (3078F) 3078F 2024-09-04 No Data Available No Data Available Functional Status Functional Category Effective Dates ADMITTING SUPERVISOR assists with cooking, cl eaning, laundry, showering [...] Contact mental health professional:/ Transfer member to [address] [place] [address]/ Hydroxyzine (Vistaril) 25mg PO q6h PRN anxiety/ [...]
== END 2025-02-01 07:55 | disposition home or self-care (01) ==
LOC: CF 07:54
PROVIDERS: Visit Provider Internal Medicine
DX: M25.562 Pain in left knee (principal)
CPT/HCPCS: 64447; J2795

== ENCOUNTER 2025-02-01 10:15 | Outpatient (AMB) | payer MEDICARE, SELFPAY ==
[2025-02-01 10:32] VITALS: BP 133/81; PULSE 71; RESP 16; O2SAT 97
--- NOTE | 2025-02-01 10:32 | MHC.OFFVIS ---
Vital Signs 02/01/25 10:32 02/01/25 11:18 BP 133/81 117/68 Blood Pressure Location Lt brachial Lt brachial Position Sitting Sitting Respiration 16 16 Pulse 71 63 Pulse Source Pulse Oximeter Pulse Oximeter Pulse Oximetry (%) 97 98 Oxygen Delivery Method Room Air Room Air Intake Visit Reasons: Left Dx SNB District Supervisor Required: No Allergies No Known Allergies Allergy (Verified 02/01/25 10:33) Medication List - Last Reconciled 02/01/25 by Roma Perkins LPN amlodipine 10 mg PO QAM blood pressure test kit-large As directed buspirone 30 mg PO BID celecoxib (Celebrex) 200 mg PO BID 30 days cetirizine 10 mg PO QAM cholecalciferol (vitamin D3) (Vitamin D3) 25 mcg PO QAM dexamethasone 1 mg PO DAILY duloxetine 60 mg PO BEDTIME duloxetine 30 mg PO QAM esomeprazole magnesium 40 mg PO DAILY fluticasone propion-salmeterol 500-50 mcg/dose 1 ea inhalation BID fluticasone propionate 50 mcg/actuation 1 spray intranasal DAILY gabapentin 400 mg PO TID 30 days hydrochlorothiazide 25 mg PO DAILY ibuprofen 600 mg PO Q6H PRN lidocaine 5% leave on most painful area for up to 12 hrs topical 30 days lisinopril 20 mg PO QAM 90 days lorazepam 1 mg PO ONCE PRN 1 day mesalamine ER 1.5 grams (4 x 0.375 gram) PO QAM ondansetron HCl (Zofran) 4 mg PO Q8H PRN polyethylene glycol 3350 (ClearLax) 17 grams PO BID primidone 50 mg PO BEDTIME propranolol 80 mg PO DAILY zolpidem 10 mg PO BEDTIME HPI HPI Left Dx SNB: Details: Patient presents for scheduled procedure. Denies any recent cough, cold, infection, fever or other significant changes in medical history since last office visit. [facility] Medical History Adrenal incidentaloma Back pain Pre-diabetes GERD (gastroesophageal reflux disease) Fibromyalgia Bipolar disorder Insomnia Anxiety Depression Syncope Mild intermittent asthma NAFLD (nonalcoholic fatty liver disease) Vertigo Sleep apnea IBS (irritable bowel syndrome) Arthritis HTN (hypertension) Surgical History History of umbilical hernia repair (~11/14/24) Hx of colonoscopy History of esophagogastroduodenoscopy (EGD) History of hysterectomy Family History Father Diabetes Arthritis Hypertension Hypercholesteremia Cancer Mother Diabetes Hypertension Arthritis Cancer Son Asthma Son Asthma Heart problem Social History Are you a primary child care education coordinator to a significant other at home: No Do you presently have visiting nurse or other home services: No Alcohol intake: never Patient Tobacco Use Status: Never used Tobacco Current occupational status: retired Physical Exam Vital Signs: Last Vital Signs Pulse 63 02/01/25 11:18 Resp 16 02/01/25 11:18 BP 117/68 02/01/25 11:18 Pulse Ox 98 02/01/25 11:18 Oxygen Delivery Method Room Air 02/01/25 11:18 Office Procedures Nerve Block Details: Left adductor canal saphenous nerve block, ultrasound-guided After obtaining written consent, pre-procedure blood pressure and heart rate were stable and recorded in the nursing record. The patient was placed supine on the table. The medial thigh area overlying the adductor canal was widely prepped with chloraprep, allowed to dry and sterilely draped. Using ultrasound, the appropriate landmarks including the femoral artery and saphenous nerve were identified. A 21 gauge 100 mm echostim needle was advanced under sonographic guidance to the adductor canal. Aspiration was negative for heme and synovial fluid. 10 cc of ropivacaine 0.25%? was injected around the saphenous nerve. The needles were removed, skin cleansed and a sterile bandage was applied. The patient tolerated the procedure well and no complications were encountered. Following the procedure the patient's vital signs and knee strength were stable. The patient was discharged home in good condition with post-procedural instructions. Time Out: Immediately prior to the procedure, the following was verbally confirmed that there is a signed consent form and that the correct patient, planned procedure, site and side are consistent with documentation and that necessary equipment and/or blood products are available prior to the start of the case. Complications: none EBL: <1 cc 82137 - Femoral (adductor injection) Procedure code (CPT) selection complete Assessment & Plan Assessment & Plan (1) Left knee pain: Code(s): M25.562 - Pain in left knee Category: Medical Plan Patient is status post diagnostic left saphenous nerve block. Patient tolerated procedure well and was discharged home in stable condition with discharge instructions. All questions were answered. We will follow-up via telephone or in clinic to assess response to therapy. A follow-up appointment was made during today's visit. Orders: Orders US guide needle placement Today M25.562 - Pain in left knee Coding Level of Care Code Procedure Only Diagnoses Left knee pain M25.562 CPT Codes Nerve Block - Nerve Block 7: 74635 - Femoral (adductor injection) ([id number])
--- OUTSIDE RECORDS SUMMARY | 2025-02-01 11:06 | XMS_ITS | Encounter Summary ---
Author Organization [employer] Address 75 [facility] 7t [place] [address] Care Team Providers Care Costume Cutter Name Role Phone Alvina Mccartney MD Primary Care Provider [phone] Riky Tanner Unavailable Mariella Mcdonnell Unavailable Jina Vences MD Unavailable Shadia Morocho Unavailable Kendall Bates MD Unavailable [phone] Sara Pritchett Unavailable Reason for Visit * Reason Comments Med Refill Encounter Details Date Type Department Care Team (Late st Contact Info) Description 06/05/2024 Refill [facility] [address] [place], [place] [phone] Alvina Mccartney MD [address] [place], [place] [phone] Pain Social History Tobacco Use Types Packs/Day [...] Description 02/05/2025 11:00 AM EDT Office Visit [facility] [address] [place] [address] documented as of this encounter Visit Diagnoses Diagnosis Pain Generalized pain documented in this encounter Additional Health Concerns Assessment Noted Time PHQ-9 Depression Total Score: 8 07/26/20 23 10:55 AM EDT documented as of this encounter Care Teams Costume Cutter Relationship Specialty Start Date End Date Alvina Mccartney MD [address] [place] [address] PCP - General Family Medicine 11/01/18 Riky Tanner 11 [facility] 3rd [place] [address] Cardiology 10/03/24 Mariella Mcdonnell [facility] [address] [address] Sleep Medicine 10/11/24 Jina Vences MD [address] [place] [address] Endocrinology 11/05/24 Shadia Morocho PA [address] [place] [address] Orthopaedic Surgery 11/07/24 Kendall Bates MD [address] 3rd [place] [address] General Surgery 11/28/24 Sara Pritchett [address] [place] [address] Pain Medicine 01/16/25 documented as of this encounter
--- OUTSIDE RECORDS SUMMARY | 2025-02-01 11:06 | XMS_ITS | Encounter Summary ---
Author Organization [employer] Address 75 [facility] 7t [place] [address] Care Team Providers Care Senior Contracts Administrator Name Role Phone Alvina Mccartney MD Primary Care Provider [phone] Riky Tanner Unavailable Mariella Mcdonnell Unavailable [phone] Jina Vences MD Unavailable Shadia Morocho Unavailable Kendall Bates MD Unavailable [phone] Sara Pritchett Unavailable Encounter Details Date Type Department Care Team (Late st Contact Info) Description 04/14/2024 Abstract [facility] [address] [place], [place] [phone] Hayley Briscoe [place] Social History Tobacco Use [...] 11:00 AM EDT Office Visit [facility] [address] [place] [address] documented as of this encounter Procedures Procedure Name Priority Date/Time Associated Diagnosis Comments DIABETES EYE EXAM Routine 04/04/2024 documented in this encounter Results * Diabetes Eye Exam (04/04/2024) Eye Exam Normal Normal Comment:repeat 5 year 04/04/2024 Historical Provider HEALTH MAINTENANCE Final Result documented in this encounter Visit Diagnoses Not on filedocumented in this encounter Additional Health Concerns Assessment Noted Time PHQ-9 Depression Total Score: 8 07/26/20 23 10:55 AM EDT documented as of this encounter Care Teams Senior Contracts Administrator Relationship Specialty Start Date End Date Alvina Mccartney MD [address] [place] [address] PCP - General Family Medicine 11/01/18 Riky Tanner [address] [place] [address] 3rd [place] [address] Cardiology 10/03/24 Mariella Mcdonnell [address] [address] Sleep Medicine 10/11/24 Jina Vences MD [address] [place] [address] Endocrinology 11/05/24 Shadia Morocho PA [address] [place] [address] Orthopaedic Surgery 11/07/24 Kendall Bates MD [address] 3rd [place] [address] General Surgery 11/28/24 Sara Pritchett [address] [place] [address] Pain Medicine 01/16/25 documented as of this encounter
--- OUTSIDE RECORDS SUMMARY | 2025-02-01 11:06 | XMS_ITS | Clinical Summary ---
Author Organization [employer] Address [address] [facility] [address] [place] [address] Care Team Providers Care Hose Coupling Joiner Name Role Phone Alvina Mccartney MD Primary Care Provider [phone] Riky Tanner Unavailable Mariella Mcdonnell Unavailable Jina [...] (01/01/2025): -seen by Ariel Morocho PA-C of [facility] 11/07/23 -MR/MR knee LT wo con [...] EST): -seen by Ariel Morocho PA-C of [facility] 11/07/23 -MR/MR knee LT wo con [...] prescribe lidocaine patches to reevaluate. -seen by [facility] 01/02/25 given left knee steroid injection [...] describing symptoms of lightheadedness when turning head woki-pu-sibl which sounds more like vertigo. No clear [...] due after 07/05/25 -eye care facilitated by [facility] -dental home is encouraged -Health [...] (10/20/2022 9:42 PM EST): -Previously established with [facility], last available consult note from 2019. -Referral to re-establish care with [facility] Essential hypertension 12/12/2018 Overview (10/03/2024): Followed by Dr. Riky Tanner MD at [facility]. Note from 09/2024 reviewed. -Blood pressure is at goal -Continue lifestyle modifications -Continue current medications -hydrochlorothiazide discontinued by Dr. Tanner 09/2024 Assessment & Plan (01/01/2025 5:24 PM EST): Followed by Dr. Riky Tanner MD at [facility]. Note from 09/2024 reviewed. -Blood [...] per her request 09/15/2023 -She has 2 [employer] WORKER 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 -Encouraged acupuncture clinic 09/15/2023, hand out given -Rx for cane per her request 09/15/2023 -She has 2 [employer]MON[employer] WORKER 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 Obstructive sleep apnea syndrome 12/12/2018 Overview (10/11/2024): Followed by [facility]. Sleep study 10/07/18 reveals severe SILVER. -Currently using CPAP nightly She started 11/05/2018 -seen by CIARA Lepe on 10/09/24 continue CPAP 14 cmH2O. Supplies are though [employer] Assessment & Plan (01/01/2025 5:24 PM EST): Followed by [facility]. Sleep study 10/07/18 reveals severe SILVER. -Currently using CPAP nightly She started 11/05/2018 -seen by CIARA Lepe on 10/09/24 continue CPAP 14 cmH2O. Supplies are though [employer] Assessment & Plan (07/21/2023 1:56 PM EDT): Followed by [facility]. Sleep study 10/07/18 reveals severe [...] and therapist. No SI/HI. Reports going to [facility], where she sees her specialists. Assessment & Plan (01/01/2025 5:41 PM EST): At visit in 11/2017, we stopped depo, as we presumed was causing depression Depression has not improved, as she is being seen by psychiatrist and therapist. No SI/HI. Reports going to [facility], where she sees her specialists. Assessment [...] and therapist. No SI/HI. Reports going to [facility], where she sees her specialists. Resolved [...] Travel 01/29/2025 11:00 AM EDT Office Visit [facility] [address] [place] [phone] Kath Soto MD Fibromyalgia (Primary Dx); Chronic pain of left knee 01/29/2025 Travel 01/23/2025 Travel 01/22/2025 11:00 AM EDT Office Visit [facility] [address] [place] [phone] Kath Soto MD Fibromyalgia (Primary Dx); Chronic pain of left knee 01/22/2025 Travel 01/18/2025 Travel 01/18/[address] [facility] [address] [place] [phone] Alvina Mccartney MD Mild intermittent asthma without complication 01/17/[address] [facility] [address] [place] [phone] Alvina Mccartney MD Mondays [facility] Group 01/15/2025 11:00 AM EDT Office Visit [facility] [address] [place] [address] [phone] Kath Soto MD Low back pain at multiple sites (Primary Dx); Fibromyalgia; Chronic pain of left knee 01/15/2025 Travel 01/13/2025 Travel 01/12/[address] [facility] [address] [place] [phone] Alvina Mccartney MD Schedule Wednesday Pain Group appt 01/03/2025 Orders Only [facility] [address] [place] [phone] Alvina Mccartney MD Breast pain, left (Primary Dx); Screening mammogram for breast cancer 01/02/[address] [facility] [address] [place] [phone] Alvina Mccartney MD 01/01/2025 9:45 AM EST Office Visit [facility] [address] [place] [phone] Alvina Mccartney MD Essential hypertension (Primary Dx); [...] knee 01/01/2025 Travel 12/31/2024 Travel 12/27/[address] [facility] [address] [place] [phone] Alvina Mccartney MD Pain 12/25/[address] [facility] [address] [place] [phone] Alvina Mccartney MD chartprep 12/19/2024 Patient Outreach [facility] [address] [place] [phone] Alvina Mccartney MD Pre-visit Planning (Pre-visit planning - LVM ) 12/01/[address] [facility] [address] [place] [phone] Alvina Mccartney MD Pain 12/01/[address] [facility] [address] [place] [phone] Alvina Mccartney MD Pain 11/11/2024 Orders Only [facility] External Provider, [facility] Chronic pain of left knee (Primary Dx) 11/10/2024 Orders Only GENERIC EXTERNAL DATA DEPARTMENT Provider, Generic External Data 11/09/2024 Orders Only [facility] External Provider, [facility] Adrenal nodule ([facility]/H[facility]) (Primary Dx) 11/09/[address] [facility] [address] [place] [address] Berto Schroeder [place] December recall [...] Description 02/05/2025 11:00 AM EDT Office Visit [facility] [address] [place] [address] Health Maintenance Due Date Last Done Comments [...] EST Narrative 11/14/2024 8:36 AM EST ? [facility] ?[address] ?[place] [address] ? Magnetic Resonance Report ? Signed ? Patient: Lety Bates ?MR#: [id number] ?? 1571 ? : 1970 ?Acct:[id number] ? Age/Sex: 54 / F ?ADM Date: //25 ? Loc: HO.MRI ? Attending Dr: Ariel Morocho PA-C ? Ordering Physician: Ariel Morocho PA-C ?? Date of Service: 11/11/24 ?? Procedure(s): MR knee LT wo con ?? Accession Number(s): [id number] ? cc: Alvina Mccartney MD; Ariel Morocho [...] ? DD/ 53 ? TD/TT: 11/11/242014 ? Certified Hyperbaric Technologist: ? Procedure Note Talya Mcfadden - 11/14/[address] [address] Magnetic Resonance Report Signed Patient: Luann Bates#: [id number] 1571 : 1970Acct:[id number] Age/Sex: 54 / FADM Date: 11/11/24 Loc: HO.MRI Attending Dr: Ariel Morocho PA-C Ordering Physician: Ariel Morocho PA-C Date of Service: 11/11/24 Procedure(s): MR knee LT wo con Accession Number(s): [id number] cc: Alvina Mccartney MD; Ariel Morocho PA-C [...] OV> 11/14/24 0833 DD/ 53 TD/TT: 11/11/242014 Certified Hyperbaric Technologist: [facility] External Provider IM MRI PROCEDURES Final Result * Dexamethasone (11/10/2024 8:10 AM EST) Pathologist [facility] Dexamethasone 260 ng/dL [facility] Comment:Reference Ranges for Dexamethasone:Baseline: Less than 20 ng/dL1 mg dexamethasone overnight: 180-550 ng/dL (8:00-10:00 AM)This test was developed and its analytical performancecharacteristics have been determined by [facility].It has not been cleared or approved by FDA. This assay hasbeen validated pursuant to the CLIA regulations and is usedfor clinical purposes.THIS TEST WAS PERFORMED AT:[facility] [id number] [place] [address]UVIYXTIA COTTON MD,PHD,JENNIFER 11/10/2024 8:10 AM EST 11/10/2024 8:10 AM EST Generic External Data Provider LAB BLOOD ORDERAB LES Final Result Performing Organization Address [facility] Co de Phone Number [facility] [address] [place] [phone] * Cortisol Random (11/10/2024 8:10 AM EST) Only the most recent of2 resultswithin the time period is included. [facility] Cortisol Random <1.0 ug/dL [facility] Comment:Reference Range*: Be fore 10 am 6.2-19.4 ug/dL After 5 pm 2.3-11.9 ug/dL*Please interpret above results accordingly.This test was performed using the [employer] chemiluminescentmethod. Values obtained from different assay methods cannotbe used interchangeably.Patients receiving fludrocortisone, prednisolone orprednisone may show artificially elevated cortisol valuesdue to cross-reactivity. 11/10/2024 8:10 AM EST 11/10/2024 8:10 AM EST us Generic External Data Provider LAB BLOOD ORDERAB LES Final Result Performing Organization Address [facility]/ZIP Co de Phone Number [facility] [address] [place] [phone] * (ABNORMAL) ACTH, Plasma (11/10/2024 8:10 AM EST) Only the most recent of2 resultswithin the time period is included. ACTH, Plasma <5(A) 6 - 50 pg/mL [facility] Comment:Reference range appl ies only to specimens collectedbetween 7am-10am.THIS TEST WAS PERFORMED AT:[facility] [place] [address]MKWDDBKFERMÍN CHEUNG MD,PHD 11/10/2024 8:10 AM EST 11/10/2024 8:10 AM EST us Generic External Data Provider LAB BLOOD ORDERAB LES Final Result [facility] [address] [place] [phone] * CT Abdomen Pelvis w/o Contrast (11/09/2024 4:44 PM EST) Anatomical Region Laterality Modality Body, Pelvis, Abdomen Computed T omography 11/09/2024 4:44 PM EST Narrative 11/13/2024 1:20 PM EST ? [facility] ?[address] ?[place] [address] ? [place] Scan Report ? Signed ? Patient: Lety Bates ?MR#: [id number] ?? 1571 ? : 1970 ?Acct:[id number] ? Age/Sex: 54 / F ?ADM Date: 11/09/24 ? Loc: HO.CT ? Attending Dr: Kendall Bates MD ? Ordering Physician: Kendall Bates MD ?? Date of Service: 11/09/24 ?? Procedure(s): CT abdomen pelvis wo IV con ?? Accession Number(s): [id number] ? cc: Alvina Mccartney MD; Kendall Bates MD ? Report Number: ?? [id number]: Total DLP = ??506.00 mGy-cm ?? EXAMINATION: [...] DD/ 1644 ? TD/TT: 11/09/24 1651 ? Certified Hyperbaric Technologist: ? Procedure Note Donxochiltnedainterpreter, Image - 11/13/[address] [address] [address] Scan Report Signed Patient: Luann Baets#: [id number] 1571 : 1970Acct:[id number] Age/Sex: 54 / FADM Date: 11/09/24 Loc: HO.CT Attending Dr: Kendall Bates MD Ordering Physician: Kendall Bates MD Date of Service: 11/09/24 Procedure(s): CT abdomen pelvis wo IV con Accession Number(s): [id number] cc: Alvina Mccartney MD; Kendall Bates MD Report Number: [id number]: Total DLP = 506.00 mGy-cm EXAMINATION: CT [...] by: Elder Esparza MD 11/13/2024 01:17 PM [facility] Dictated By: Elder Esparza MD Signed By: <Electronically signed by Elder Esparza MD in OV> 11/13/24 1317 DD/ 1644 TD/TT: 11/09/24 1651 Certified Hyperbaric Technologist: [facility] External Provider IMG CT PROCEDURES Final Result * Metanephrines, Fractionated, Free, LC/MS/MS, Plasma (11/06/2024 7:50 AM EST) Metanephrine, Free 49 <=57 pg/mL [facility] Comment:This test was develo ped and its analytical performancecharacteristics have been determined by [facility]. It hasnot been cleared or approved by the U.S. Food and DrugAdministration. This assay has been validated pursuantto the CLIA regulations and is used for clinicalpurposes. Normetanephrine, Free 81 <=148 pg/mL [facility] Comment:This test was develo ped and its analytical performancecharacteristics have been determined by [employer] [place], [place]. It hasnot been cleared or approved by the U.S. Food and DrugAdministration. This assay has been validated pursuantto the CLIA regulations and is used for clinicalpurposes. Total, Free (MN+NMN) 130 <=205 pg/mL [facility] Comment: For additional information, please refer tohttp://education.Moovweb/faq/MetFractFree(This link is being provided for informational/educatioinformational/educational purposes [...] its analytical performancecharacteristics have been determined by [employer] [place], [place]. It hasnot been cleared or approved by the U.S. Food and DrugAdministration. This assay has been validated pursuantto the CLIA regulations and is used for clinicalpurposes.THIS TEST WAS PERFORMED AT:[employer] [id number] [place] [address] ??[id number] CHEUNG MD,PHD 11/06/2024 7:50 AM EST 11/06/2024 7:56 AM EST us Generic External Data Provider LAB BLOOD ORDERAB LES Final Result [facility] [address] [place] [phone] * Aldosterone, LC/MS/MS (11/06/2024 7:50 AM EST) Aldosterone, LC/MS/MS 4 see note ng/dL [facility] Comment:Unable to flag abnor mal result(s), please refer to reference range(s) below:Adult Reference Ranges for Aldosterone, LC/MS/MS: Upright 8:00 - 10:00 am < or = 28 ng/dL Upright 4:00 - 6:00 pm < or = 21 ng/dL Supine 8:00 - 10:00 am 3 - 16 ng/dLThis test was developed and its analytical performancecharacteristics have been determined by [employer] [place], [place]. It hasnot been cleared or approved by the U.S. Food and DrugAdministration. This assay has been validated pursuantto the CLIA regulations and is used for clinicalpurposes.THIS TEST WAS PERFORMED AT:[facility] [address]GCASFMCFERMÍN CHEUNG MD,PHD 11/06/2024 7:50 AM EST 11/06/2024 7:56 AM EST us Generic External Data Provider LAB BLOOD ORDERAB LES Final Result Performing Organization Address [facility] Co de Phone Number [facility] [address] [place] [phone] * Plasma Renin Activity, LC/MS/MS (11/06/2024 7:50 AM EST) Pathologist [facility] Plasma Renin Activity, LC/MS/MS 0.85 0.25 - 5.82 ng/mL/h [facility] Comment:This test was develo ped and its analytical performancecharacteristics have been determined by [employer] [place], [place]. It hasnot been cleared or approved by the U.S. Food and DrugAdministration. This assay has been validated pursuantto the CLIA regulations and is used for clinicalpurposes.THIS TEST WAS PERFORMED AT:[employer]/[facility] [place] [address]CMFJRBHFERMÍN CHEUNG MD,PHD 11/06/2024 7:50 AM EST 11/06/2024 7:56 AM EST Generic External Data Provider LAB BLOOD ORDERAB LES Final Result Performing Organization Address [facility] de Phone Number [facility] [address] [place] [phone] * DHEA Sulfate (11/06/2024 7:50 AM EST) Pathologist [facility] DHEA Sulfate 74 5 - 167 mcg/dL [facility] Comment:THIS TEST WAS PERFOR MED AT:[employer] [address] [address]ZJYWXSHADE CALIX MD 11/06/2024 7:50 AM EST 11/06/2024 7:56 AM EST Generic External Data Provider LAB BLOOD ORDERAB LES Final Result Performing Organization Address [facility] Co de Phone Number [facility] [address] [place] [phone] * (ABNORMAL) Basic Metabolic Panel (11/06/2024 7:50 AM EST) Pathologist [facility] Sodium 142 135 - 145 mmol/L [facility] Potassium 4.0 3.3 - 5.1 mmol/L [facility] Chloride 109(H) 96 - 108 mmol/L [facility] Carbon Dioxide 25 22 - 29 mmol/L [facility] Anion Gap 12 12 - 20 [facility] Urea Nitrogen (BUN) 23(H) 9 - 16 mg/dL [facility] Creatinine, Serum 0.75 0.5 - 1.4 mg/dL [facility] Estimated Glomerular Filt Rate >60 [facility] Comment:Chronic Kidney Disea se: Estimated GFR < 60 mL/min/1.35n4Nyeetj Kidney Disease: Estimated GFR < 15 mL/min/1.73m2 Glucose 75 60 - 115 mg/dL [facility] Calcium 9.8 8.4 - 10.2 mg/dL [facility] 11/06/2024 7:50 AM EST 11/06/2024 7:56 AM EST us Generic External Data Provider LAB BLOOD ORDERAB LES Final Result [facility] [address] [place] [phone] [phone] * (ABNORMAL) Lipid Panel, Standard (07/08/2024 9:02 AM EDT) Pathologist [facility] Triglycerides 101 <150 mg/dL [facility] Comment:Desirable Triglyceri de: less than 150 mg/dLBorderline High Triglyceride 150-199 mg/dLHigh Triglyceride: 200-499 mg/dLVery High Triglyceride: greater than or equal to 5OO mg/dL Cholesterol 184 <200 mg/dL [facility] Comment:Desirable Cholestero l: less than 200 mg/dLBorderline High Cholesterol: 200-239 mg/dLHigh Cholesterol: greater than 239 mg/dL LDL Cholesterol Calculated 128(H) <100 mg/dL [facility] Comment:Desirable LDL: less than 100 mg/dLNear Optimal/Above Optimal LDL: 110- 129 mg/dLBorderline High LDL: 130-159 mg/dLHigh LDL: 160-189 mg/dLVery High LDL: greater than or equal to 190 mg/dL HDL Cholesterol 36(L) >40 mg/dL [facility] Comment:Desirable HDL: great er than 40 mg/dL Note: This HDL assay may give artificially low results in patients with liver disease. Blood Venous blood specimen / Unknown 07/08/2024 9:02 AM EDT 07/08/2024 9:02 AM EDT us Alvina Mccartney MD LAB BLOOD ORDERABLES Final Result Performing Organization Address City/State/[facility] Co de Phone Number [facility] [address] [place] [phone] * POCT HGB A1C (07/05/2024 10:53 AM EDT) Hemoglobin A1C 5.9 4.0 - 6.0 % QC Media Lot # [id number] Lot# Expiration Date [id number] Blood 07/05/2024 10:5 3 AM EDT us Alvina Mccartney MD POINT OF CARE TEST ENTER/E DIT ORDERABLES Final Result * Hm Colonoscopy (04/04/2024) Colonoscopy Normal Normal 04/04/2024 Mil Alvarado MD HEALTH MAINTENANCE Final Result * BI Mammogram Screening Tomosynthesis Bilateral (12/01/2023 2:40 PM EST) Anatomical Region Laterality Modality Breast Bilateral Mammography 12/01/2023 2:40 PM EST Narrative 12/23/2023 9:55 PM EST ? [place] [facility] ? [address] ?[place] [address] ? Mammography Report ? Signed ? Patient: Paulo,Lety ?MR#: [id number] ?? 1571 ? : 1970 ?Acct:[id number] ? Age/Sex: 53 / F ?ADM Date: 12/01/23 ? Loc: HO.MAMMO ? Attending Dr: Alvina Mccartney MD ? Ordering Physician: Alvina Mccartney MD ?Results: 2B ?? enign Findings ? Date of Service: 12/01/23 ?Follow Up: 1 Year From Orig ?? inal Mammogram ? Procedure(s): MM tomosynthesis screening BI ?? Accession Number(s): [id number] ? cc: Alvina Mccartney MD ? EXAMINATION: [...] 12/23/232151 ? DD/ 1440 ? TD/TT: ? Certified Hyperbaric Technologist: ? Procedure Note Lesa, Image - 12/23/2023 [facility] [address] [place] [address] Mammography Report Signed Patient: Leidy BatesnMR#: [id number] 1571 : 1970Acct:[id number] Age/Sex: 53 / FADM Date: 12/01/23 Loc: HO.MAMMO Attending Dr: Alvina Mccartney MD Ordering Physician: Alvina Mccartney MDResults: 2B enign Findings Date of Service: 12/01/23Follow Up: 1 Year From Orig inal Mammogram Procedure(s): MM tomosynthesis screening BI Accession Number(s): [id number] cc: Alvina Mccartney MD EXAMINATION: MM SCREENING [...] MD in OV> 12/23/232151 DD/ 1440 TD/TT: Certified Hyperbaric Technologist: Alvina Mccartney MD IMG BI PROCEDURES Edited R esult - Final * Hepatitis C Ab (07/29/2023 9:23 AM EDT) Hepatitis C Antibody Nonreactive Nonreactive [facility] Comment:Antibodies to HCV no t detected; does not exclude early acuteHCV infection. Blood 07/29/2023 9:23 AM EDT 07/29/2023 11:00 AM EDT Alvina Mccartney MD LAB BLOOD ORDERABLES Final Result [facility] [address] [place] [phone] * HPV mRNA E6/E7 w/Reflex to HPV Genotypes 16, 18/45 (07/26/2023 10:57 AM EDT) HPV nRNA E6/E7 Not Detected Not Detected [facility] Comment:Methodology: Transcr iption-Mediated AmplificationThis assay detects E6/E7 viral messenger RNA (mRNA) from 14high-risk HPV types (16,18,31,33,35,39,45,51,52,56,58,59,66,68).Cervical sources are required for HPV testing.If a vaginal source from a patient who has had atotal hysterectomy with removal of cervix wassubmitted, please contact the testing laboratoryfor alternative testing options.For additional information, please refer tohttp://education.Moovweb/faq/SEU094j9(This link if provided for information/educational purposes only.)THIS TEST WAS PERFORMED AT:[employer] [place] [id number] CALIX MD HPV mRNA E6/E7 TNP [facility] HPV 16 RNA TNP [facility] HPV 18/45 RNA [facility] 07/26/2023 10:5 7 AM EDT 07/27/2023 9:00 AM EDT Alvina Mccartney MD LAB CYTOLOGY ORDERABLES Fi nal Result Performing Organization Address City/State/[facility] Co de Phone Number [facility] [address] [place] [phone] * Pap Smear (07/26/2023 10:57 AM EDT) 07/26/2023 10:5 7 AM EDT 07/27/2023 9:00 AM EDT Narrative [facility] - 08/02/2023 1:35 PM EDT ----- ------- Name: Lety Bates ? Age/Sex: 53/F ? : 1970 Unit#: [id number] ?? Attend Dr: Alvnia Mccartney MD ?Re07/26/23 ?Status: DEP REF ? [facility] ? Disch: ? ----- ------- SPEC : [id number] ?RECD: 07/27/23 ? STATUS: ??SOUT ? REQ NUM: [id number] ? AMANDA: 07/26/23-1056 ? SUBM DR: Alvina [...] 66, 68) ?? HPV testing performed by [facility], [place], [place]. ??See reference laboratory ?? pion of the EMR for entire report. ?Clinical Information LMP: Unknown date Previous PAP test: Unknown date/findings ? Material Received ?? ThinPrep-Vaginal/Cervical ----- ------- Signed (signature on file) JUSTIN Arambula (ASCP) 08/02/23 1335 ? ----- ------- ? END OF REPORT ? us Alvina Mccartney MD LAB CYTOLOGY ORDERABLES Fi nal Result [facility] [address] [place] [phone] * HM HIV 1/2 Antigen and Antibody (01/21/2021) HIV Ag/Ab Nonreactive Historical Provider HEALTH MAINTENANCE Final Result from Last 3 Months or Most Recently Relevant to [place] [address] [facility] [place] [address] [place] [id number] Advance Directives Documents on File Type Date Recorded Patient Manager Shift Expl anation Advance Directives and Living Will 07/07/2024 1:01 PM Health Care Proxy Care Teams Hose Coupling Joiner Relationship Specialty Start Date End Date Hand, MD Alvina [address] [place] [address] PCP - General Family Medicine 11/01/18 Riky Tanner [address] 3rd Floor [place], [place] Cardiology 10/03/24 Mariella Mcdonnell [address] [address] Sleep Medicine 10/11/24 Jina Vences MD [address] [place] [address] Endocrinology 11/05/24 Shadia Morocho PA [address] [place] [address] Orthopaedic Surgery 11/07/24 Kendall Bates MD [address] 3rd [place] [address] General Surgery 11/28/24 Sara Pritchett [address] [place] [address] Pain Medicine 01/16/25
--- OUTSIDE RECORDS SUMMARY | 2025-02-01 11:06 | XMS_ITS | Encounter Summary ---
Author Organization [employer] Address 75 [facility] 7t [place] [address] Care Team Providers Care Information Manager Name Role Phone Alvina Mccartney MD Primary Care Provider [phone]- [phone] Riky Tanner Unavailable Mariella Mcdonnell Unavailable [phone] Jina Vences MD Unavailable Shadia Morocho Unavailable Kendall Bates MD Unavailable Sara Pritchett Unavailable Reason for Visit * Reason Comments Med Refill Encounter Details Date Type Department Care Team (Late st Contact Info) Description 12/01/2024 Refill [facility] [address] [place], [place] [phone] Alvina Mccartney MD [address] [place], [place] [phone] Pain Social History Tobacco Use Types Packs/Day [...] Description 02/05/2025 11:00 AM EDT Office Visit [facility] [address] [place] [address] documented as of this encounter Visit Diagnoses Diagnosis Pain Generalized pain documented in this encounter Additional Health Concerns Assessment Noted Time PHQ-9 Depression Total Score: 8 07/26/20 23 10:55 AM EDT documented as of this encounter Care Teams Information Manager Relationship Specialty Start Date End Date Alvina Mccartney MD [address] [place] [address] PCP - General Family Medicine 11/01/18 Riky Tanner 11 [facility] 3rd [place] [address] Cardiology 10/03/24 Mariella Mcdonnell [facility] [address] [address] Sleep Medicine 10/11/24 Jina Vences MD [address] [place] [address] Endocrinology 11/05/24 Shadia Morocho PA [address] [place] [address] Orthopaedic Surgery 11/07/24 Kendall Bates MD [address] 3rd [place] [address] General Surgery 11/28/24 Sara Pritchett [address] [place] [address] Pain Medicine 01/16/25 documented as of this encounter
--- OUTSIDE RECORDS SUMMARY | 2025-02-01 11:07 | XMS_ITS ---
Author Name MS. Aba Kirkpatrick APRN Address [address] [place] [address] Phone [phone] [facility] Care Team Providers Care Microelectronics Assembler Name Role Phone Debbie Kirkpatrick Unavailable [phone] Unavailable Unavailable Unavailable DOROTHEA NEAL Unavailable [phone] Carina Baird Unavailable Unavailable Reason for Referral [...] Active 2023-10-05 N/A Other problems related to [facility] facilities and other health care Active 2024-04-25 N/A Encounters Encounters Type Facility Date of Service Diagnosis/Co mplaint New patient, 30-44min 1 stable chronic or 2 minor; add modifier 95 for video, modifier 93 for phone [facility]2023 Major depressive disorder, recurrent, mildInsomnia, unspecifiedGeneralized anxiety disorderGastro-esophageal reflux disease without esophagitisDizziness and giddinessEssential (primary) hypertensionNeuralgia and neuritis, unspecifiedVitamin D deficiency, unspecifiedMild intermittent asthma, uncomplicated New patient, 30-44min 1 stable chronic or 2 minor; add modifier 95 for video, modifier 93 for phone [facility] 10[place]05/2023 New patient, 30-44min 1 stable chronic or 2 minor; add modifier 95 for video, modifier 93 for phone [facility]2023 New patient, 30-44min 1 stable chronic or 2 minor; add modifier 95 for video, modifier 93 for phone [facility]/2023 New patient, 30-44min 1 stable chronic or 2 minor; add modifier 95 for video, modifier 93 for phone [facility] [place] 10/05/2023 New patient, 30-44min 1 stable chronic or 2 minor; add modifier 95 for video, modifier 93 for phone [facility] 10/05/2023 Estab. patient 30-39min; chronic exacerbation, 2 stable chronic or 1 acute illness add add modifier 95 for video, (do not use for phone, instead use 95456-19) [facility] 04[place]25/2024 Major depressive disorder, recurrent, mildInsomnia, unspecifiedGeneralized anxiety disorderGastro-esophageal reflux disease without esophagitisDizziness and giddinessEssential (primary) hypertensionNeuralgia and neuritis, unspecifiedVitamin D deficiency, unspecifiedMild intermittent asthma, uncomplicatedOther problems related to medical facilities and other health care Estab. patient 30-39min; chronic exacerbation, 2 stable chronic or 1 acute illness add add modifier 95 for video, (do not use for phone, instead use 64730-56) [facility] [place] 04/25/2024 Estab. patient 30-39min; chronic exacerbation, 2 stable chronic or 1 acute illness add add modifier 95 for video, (do not use for phone, instead use 79761-62) [facility] 04[place]/20[place] Estab. patient 30-39min; chronic exacerbation, 2 stable chronic or 1 acute illness add add modifier 95 for video, (do not use for phone, instead use 63488-21) [facility] 04[place]/20[place] Estab. patient 30-39min; chronic exacerbation, 2 stable chronic or 1 acute illness add add modifier 95 for video, (do not use for phone, instead use 53824-00) [facility] 04[place]/20[place] Estab. patient 30-39min; chronic exacerbation, 2 stable chronic or 1 acute illness add add modifier 95 for video, (do not use for phone, instead use 14909-33) [facility] 04[place]/20[place] Estab. patient 30-39min; chronic exacerbation, 2 stable chronic or 1 acute illness add add modifier 95 for video, (do not use for phone, instead use 01752-16) [facility]/20[place] Estab. patient 30-39min; chronic exacerbation, 2 stable chronic or 1 acute illness add add modifier 95 for video, (do not use for phone, instead use 52075-14) [facility] 04/[place]/2024 Estab. patient 30-39min; chronic exacerbation, 2 stable chronic or 1 acute illness add add modifier 95 for video, (do not use for phone, instead use 45214-78) [facility] 04[place]/2024 Unlisted special service; to be used for medical record reviews and reporting CPTII codes (1111F, etc) [facility] 09/04/2024 Other specified health statu s Unlisted special service; to be used for medical record reviews and reporting CPTII codes (1111F, etc) [facility] [place]2024 Unlisted special service; to be used for medical record reviews and reporting CPTII codes (1111F, etc) [facility] [place] 09/[place]2024 Vital Signs Date of [...] 95 for video, modifier 93 for phone 81440 2023-10-05 No Data Available No Data Available [...] (do not use for phone, instead use 72871-54) [address] 2024-04-25 No Data Available No Data Availa [...] reviews and reporting CPTII codes (1111F, etc) 53661 2024-09-04 No Data Available No Data Availa ble SBP < 130 (3074F) 3074F 2024-09-04 No Data Available No Data Available DBP <80 (3078F) 3078F 2024-09-04 No Data Available No Data Available Functional Status Functional Category Effective Dates COMPUTER NUMERICAL CONTROL PROGRAMMER assists with cooking, cl eaning, laundry, showering [...] Contact mental health professional:/ Transfer member to [address] [place] [address]/ Hydroxyzine (Vistaril) 25mg PO q6h PRN anxiety/ [...]
--- OUTSIDE RECORDS SUMMARY | 2025-02-01 11:07 | XMS_ITS | Encounter Summary ---
Author Organization [employer] [facility] Address 75 [facility] 7t [place] [address] Care Team Providers Care Plastic Press Molder Name Role Phone Alvina Mccartney MD Primary Care Provider [phone]- [phone] Riky Tanner Unavailable Mariella Mcdonnell Unavailable [phone] Jina Vences MD Unavailable Shadia Morocho Unavailable Kendall Bates MD Unavailable Sara Pritchett Unavailable Encounter Details Date Type Department Care Team (Late st Contact Info) Description 10/16/2022 Orders Only [facility] [address] [place] [address] [phone] Anel Espinoza, RN Social History Tobacco Use [...] Description 02/05/2025 11:00 AM EDT Office Visit [facility] [address] [place] [phone] documented as of this encounter Visit Diagnoses Not on filedocumented in this encounter Care Teams Plastic Press Molder Relationship Specialty Start Date End Date Alvina Mccartney MD [address] [place] [address] PCP - General Family Medicine 11/01/18 Riky Tanner [address] 3rd [place] [address] Cardiology 10/03/24 Mariella Mcdonnell [address] [address] Sleep Medicine 10/11/24 Jina Vences MD [address] [place] [address] Endocrinology 11/05/24 Shadia Morocho PA [address] [place] [address] Orthopaedic Surgery 11/07/24 Kendall Bates MD [address] [place] [address] General Surgery 11/28/24 Sara Pritchett [address] [place] [address] Pain Medicine 01/16/25 documented as of this encounter
--- OUTSIDE RECORDS SUMMARY | 2025-02-01 11:07 | XMS_ITS | Encounter Summary ---
Author Organization [facility] Address 75 [facility] 7t [place] [address] Care Team Providers Care Registered Land Surveyor Name Role Phone Alvina cMcartney MD Primary Care Provider [phone]- [phone] Riky Tanner Unavailable Mariella Mcdonnell Unavailable Jina Vences MD Unavailable Shadia Morocho Unavailable Kendall Bates MD Unavailable Sara Pritchett Unavailable Encounter Details Date Type Department Care Team (Late st Contact Info) Description 12/03/[address] [facility] [address] [place], [place] 1980[address] Alvina Mccartney MD [address] [place], [place] [phone] Social History Tobacco Use Types Packs/Day Years [...] Description 02/05/2025 11:00 AM EDT Office Visit [facility] [address] [facility] [place] [address] documented as of this encounter Procedures Procedure [...] on filedocumented in this encounter Care Teams Registered Land Surveyor Relationship Specialty Start Date End Date Alvina Mccartney MD [address] [facility] [place] [address] PCP - General Family Medicine 11/01/18 Riky Tanner [address] 3rd [place] [address] Cardiology 10/03/24 Mariella Mcdonnell [address] [address] Sleep Medicine 10/11/24 Jina Vences MD [address] [place] [address] Endocrinology 11/05/24 Shadia Morocho PA [address] [place] [address] Orthopaedic Surgery 11/07/24 Kendall Bates MD [address] 3rd [place] [address] General Surgery 11/28/24 Sara Pritchett [address] [place] [address] Pain Medicine 01/16/25 documented as of this encounter
--- OUTSIDE RECORDS SUMMARY | 2025-02-01 11:07 | XMS_ITS | Encounter Summary ---
Author Organization [employer] Address 75 [facility] 7t [place] [address] Care Team Providers Care Home Office Representative Name Role Phone Alvina Mccartney MD Primary Care Provider [phone]- [phone] Riky Tanner Unavailable Mariella Mcdonnell Unavailable [phone] Jina Vences MD Unavailable Shadia Morocho Unavailable Kendall Bates MD Unavailable [phone] Sara Pritchett Unavailable Encounter Details Date Type [...] 11:00 AM EDT Office Visit [facility] [address] [place] [address] documented as of this encounter Visit Diagnoses Not on filedocumented in this encounter Additional Health Concerns Assessment Noted Time PHQ-9 Depression Total Score: 17 025 9:49 AM EST documented as of this encounter Care Teams Home Office Representative Relationship Specialty Start Date End Date Alvina Mccartney MD [address] [place] [address] PCP - General Family Medicine 11/01/18 Riky Tanner [address] 3rd [place] [address] Cardiology 10/03/24 Mariella Mcdonnell [address] [address] Sleep Medicine 10/11/24 Jina Vences MD [address] [place] [address] Endocrinology 11/05/24 Shadia Morocho PA [address] [place] [address] Orthopaedic Surgery 11/07/24 Kendall Bates MD [address] 3rd [place] [address] General Surgery 11/28/24 Sara Pritchett [address] [place] [address] Pain Medicine 01/16/25 documented as of this encounter
--- OUTSIDE RECORDS SUMMARY | 2025-02-01 11:07 | XMS_ITS | Encounter Summary ---
Author Organization [employer] Address 75 [facility] 7t [place] [address] Care Team Providers Care Logging Equipment Mechanic Name Role Phone Alvina Mccartney MD Primary Care Provider [phone]- [phone] Riky Tanner Unavailable Mariella Mcdonnell Unavailable [phone] Jina Vences MD Unavailable Shadia Morocho Unavailable Kendall Bates MD Unavailable Sara Pritchett Unavailable Encounter Details Date Type Department Care Team (Late st Contact Info) Description 04/22/2023 Orders Only [facility] [address] [place], [place] [phone] Alvina Mccartney MD [address] [place], [place] [phone] Dizzy (Primary Dx) Social History Tobacco Use [...] Description 02/05/2025 11:00 AM EDT Office Visit [facility] [address] [place] [address] documented as of this encounter Visit Diagnoses Diagnosis Dizzy- Primary Dizziness and giddiness documented in this encounter Care Teams Logging Equipment Mechanic Relationship Specialty Start Date End Date Alvina Mccartney MD [address] [place] [address] PCP - General Family Medicine 11/01/18 Riky Tanner [address] [place] [address] Cardiology 10/03/24 Mariella Mcdonnell [address] [place] [address] Sleep Medicine 10/11/24 Jina Vences MD [address] [place] [address] Endocrinology 11/05/24 Shadia Morocho PA [address] [place] [address] Orthopaedic Surgery 11/07/24 Kendall Bates MD [address] 3rd [place] [address] General Surgery 11/28/24 Sara Pritchett [address] [place] [address] Pain Medicine 01/16/25 documented as of this encounter
--- OUTSIDE RECORDS SUMMARY | 2025-02-01 11:07 | XMS_ITS | Encounter Summary ---
Author Organization [employer] Address 75 [facility] 7t [place] [address] Care Team Providers Care Appraiser Oil And Water Name Role Phone Alvina Mccartney MD Primary Care Provider [phone] Riky Tanner Unavailable Mariella Mcdonnell Unavailable Jina Vences MD Unavailable Shadia Morocho Unavailable Kendall Bates MD Unavailable Sara Pritchett Unavailable Encounter Details Date Type Department Care Team (Late st Contact Info) Description 01/29/2025 11:00 AM EDT Office Visit [facility] 230 [place], [place] [phone] Kath Soto MD [address] [place], [place] [phone] Fibromyalgia (Primary Dx); Chronic pain of left [...] Group Visit Number: 3 Last PCP visit: [place] 01/01/25 Group Confidentiality last signed: 01/15/25 Group [...] per her request 09/15/2023 -She has 2 PLANOGRAPH OPERATOR 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 Chronic pain of left knee Overview -seen by Ariel Morocho PA-C of [facility] 11/07/23 -MR/MR knee LT wo [...] Description 02/05/2025 11:00 AM EDT Office Visit [facility] [address] [place] [address] documented as of this encounter Visit Diagnoses Diagnosis Fibromyalgia- Primary Unspecified myalgia and myositis Chronic pain of left knee documented in this encounter Additional Health Concerns Assessment Noted Time PHQ-9 Depression Total Score: 17 025 9:49 AM EST documented as of this encounter Care Teams Appraiser Oil And Water Relationship Specialty Start Date End Date Alvnia Mccartney MD [address] [place] [address] PCP - General Family Medicine 11/01/18 Riky Tanner 11 [facility] 3rd [place] [address] Cardiology 10/03/24 Mariella Mcdonnell [facility] [address] [address] Sleep Medicine 10/11/24 Jina Vences MD [address] [place] [address] Endocrinology 11/05/24 Shadia Morocho PA [address] [facility] [address] [place] [address] Orthopaedic Surgery 11/07/24 Kendall Bates MD 11 [facility] 3rd [place] [address] General Surgery 11/28/24 Sara Pritchett [address] [facility] [address] [place] [address] Pain Medicine 01/16/25 documented as of this encounter
--- OUTSIDE RECORDS SUMMARY | 2025-02-01 11:07 | XMS_ITS | Encounter Summary ---
Author Organization [employer] Address 75 [facility] 7t [place] [address] Care Team Providers Care Adult Nurse Practitioner Name Role Phone Alvina Mccartney MD Primary Care Provider [phone]- [phone] Riky Tanner Unavailable Mariella Mcdonnell Unavailable [phone] Jina Vences MD Unavailable Shadia Morocho Unavailable Kendall Bates MD Unavailable [phone] Sara Pritchett Unavailable Encounter Details Date Type [...] Description 02/05/2025 11:00 AM EDT Office Visit [facility] [address] [place] [address] documented as of this encounter Visit Diagnoses Not on filedocumented in this encounter Additional Health Concerns Assessment Noted Time PHQ-9 Depression Total Score: 17 025 9:49 AM EST documented as of this encounter Care Teams Adult Nurse Practitioner Relationship Specialty Start Date End Date Alvina Mccartney MD 230 [place] [address] PCP - General Family Medicine 11/01/18 Riky Tanner [address] 3rd [place] [address] Cardiology 10/03/24 Mariella Mcdnonell [address] [address] Sleep Medicine 10/11/24 Jina Vences MD [address] [place] [address] Endocrinology 11/05/24 Shadia Morocho PA [address] [place] [address] Orthopaedic Surgery 11/07/24 Kendall Bates MD [address] 3rd [place] [address] General Surgery 11/28/24 Sara Pritchett [address] [place] [address] Pain Medicine 01/16/25 documented as of this encounter
--- OUTSIDE RECORDS SUMMARY | 2025-02-01 11:07 | XMS_ITS | Encounter Summary ---
Author Organization [employer] Address 75 [facility] 7t [place] [address] Care Team Providers Care Property Caretaker Name Role Phone Alvina Mccartney MD Primary Care Provider [phone]- [phone] Riky Tanner Unavailable Mariella Mcdonnell Unavailable Jina Vences MD Unavailable Shadia Morocho Unavailable Kendall Bates MD Unavailable [phone] Sara Pritchett Unavailable Reason for Visit * Reason Comments Med Refill Encounter Details Date Type Department Care Team (Late st Contact Info) Description 01/18/2025 Refill [facility] [address] [place], [place] [phone] Alvina Mccartney MD [address] [place], [place] [phone] Mild intermittent asthma without complication Social History [...] Description 02/05/2025 11:00 AM EDT Office Visit [facility] [address] [place] [address] documented as of this encounter Visit Diagnoses Diagnosis Mild intermittent asthma without complication documented in this encounter Additional Health Concerns Assessment Noted Time PHQ-9 Depression Total Score: 17 025 9:49 AM EST documented as of this encounter Care Teams Property Caretaker Relationship Specialty Start Date End Date Alvina Mccartney MD 230 [place] [address] PCP - General Family Medicine 11/01/18 Riky Tanner [address] 3rd [place] [address] Cardiology 10/03/24 Mariella Mcdonnell [address] [address] Sleep Medicine 10/11/24 Jina Vences MD [address] [place] [address] Endocrinology 11/05/24 Shadia Morocho PA [address] [place] [address] Orthopaedic Surgery 11/07/24 Kendall Bates MD [address] 3rd [place] [address] General Surgery 11/28/24 Sara Pritchett [address] [place] [address] Pain Medicine 01/16/25 documented as of this encounter
[2025-02-01 11:18] VITALS: BP 117/68; PULSE 63; RESP 16; O2SAT 98
== END 2025-02-01 11:19 | disposition home or self-care (01) ==
LOC: HO.PMCPRC 10:15
PROVIDERS: PCP Family Medicine; Visit Provider Internal Medicine
DX: M25.562 Pain in left knee (principal)
CPT/HCPCS: 64447

== ENCOUNTER 2025-02-07 13:34 | Outpatient (REF) | payer MEDICARE, SELFPAY ==
--- NOTE | ~2025-02-07 | MM_ITS ---
EXAMINATION: MM DIAGNOSTIC DIGITAL BREAST TOMOSYNTHESIS, BILATERAL Left Limited ultrasound. CLINICAL INFORMATION: Lateral left breast pain. COMPARISON: Mammography: Comparison is made with relevant prior exams. TECHNIQUE: Digital breast mammography with tomosynthesis is performed in both the craniocaudal and mediolateral oblique views along with computer-aided detection (CAD). FINDINGS: There are scattered areas of fibroglandular density (ACR BI-RADS breast composition Category b). Circumscribed oval mass with associated dystrophic internal calcifications stable on prior mammograms back to 2019 and therefore benign.. There are no significant masses, abnormal calcifications, or other abnormalities. Targeted color Doppler ultrasound scanning in the area the patient's pain demonstrates normal fibroglandular breast tissue and the staple oval hypoechoic mass with internal calcifications at 4:00 8 cm from the nipple measuring 17 x 12 x 20 mm. No other sonographic normality is seen. Results are provided to the patient at time of visit by the technologist. MM/MM tomosynthesis diagnostic BI IMPRESSION: Stable calcified mass oval in the central outer breast. Benign. No other mammographic or sonographic abnormality to account for the patient's left breast pain. Recommend clinical evaluation and follow-up. ASSESSMENT: BI-RADS BI-RADS 2 - Benign Findings RECOMMENDATION: 1 year F/U This patient's information was entered into a reminder system with a target due date for their next mammogram. Electronically signed by: Shameka Wiley DO 02/07/2025 02:55 PM EDT
--- OUTSIDE RECORDS SUMMARY | 2025-02-07 15:43 | XMS_ITS ---
Author Name MS. Aba Kirkpatrick APRN Address [address] [place] [address] Phone [phone] [facility] Care Team Providers Care Compressed Gas Equipment Mechanic Name Role Phone Debbie Kirkpatrick Unavailable [phone] Unavailable Unavailable Unavailable DOROTHEA NEAL Unavailable [phone] Carina Baird Unavailable Unavailable Reason for Referral [...] Active 2023-10-05 N/A Other problems related to [facility] facilities and other health care Active 2024-04-25 N/A Encounters Encounters Type Facility Date of Service Diagnosis/Co mplaint New patient, 30-44min 1 stable chronic or 2 minor; add modifier 95 for video, modifier 93 for phone [facility], ([place]) 10/05/2023 Major depressive disorder, recurrent, mildInsomnia, unspecifiedGeneralized anxiety disorderGastro-esophageal reflux disease without esophagitisDizziness and giddinessEssential (primary) hypertensionNeuralgia and neuritis, unspecifiedVitamin D deficiency, unspecifiedMild intermittent asthma, uncomplicated New patient, 30-44min 1 stable chronic or 2 minor; add modifier 95 for video, modifier 93 for phone [facility] ([place] 10[place]05/20[place] New patient, 30-44min 1 stable chronic or 2 minor; add modifier 95 for video, modifier 93 for phone [facility] 10[place]20[place] New patient, 30-44min 1 stable chronic or 2 minor; add modifier 95 for video, modifier 93 for phone [facility] 10[place]20[place] New patient, 30-44min 1 stable chronic or 2 minor; add modifier 95 for video, modifier 93 for phone [facility] 10[place]20[place] New patient, 30-44min 1 stable chronic or 2 minor; add modifier 95 for video, modifier 93 for phone [facility] 10[place]20[place] Estab. patient 30-39min; chronic exacerbation, 2 stable chronic or 1 acute illness add add modifier 95 for video, (do not use for phone, instead use [id number]) [facility] 04[place] Major depressive disorder, recurrent, mildInsomnia, unspecifiedGeneralized anxiety disorderGastro-esophageal reflux disease without esophagitisDizziness and giddinessEssential (primary) hypertensionNeuralgia and neuritis, unspecifiedVitamin D deficiency, unspecifiedMild intermittent asthma, uncomplicatedOther problems related to medical facilities and other health care Estab. patient 30-39min; chronic exacerbation, 2 stable chronic or 1 acute illness add add modifier 95 for video, (do not use for phone, instead use 11782-09) [facility], ([place]) 04/25/20[place] Estab. patient 30-39min; chronic exacerbation, 2 stable chronic or 1 acute illness add add modifier 95 for video, (do not use for phone, instead use 17227-75) [facility] 04[place] Estab. patient 30-39min; chronic exacerbation, 2 stable chronic or 1 acute illness add add modifier 95 for video, (do not use for phone, instead use 33440-29) [facility] Estab. patient 30-39min; chronic exacerbation, 2 stable chronic or 1 acute illness add add modifier 95 for video, (do not use for phone, instead use 42092-89) [facility] Estab. patient 30-39min; chronic exacerbation, 2 stable chronic or 1 acute illness add add modifier 95 for video, (do not use for phone, instead use 32871-47) [facility] Estab. patient 30-39min; chronic exacerbation, 2 stable chronic or 1 acute illness add add modifier 95 for video, (do not use for phone, instead use 92264-24) [facility] Estab. patient 30-39min; chronic exacerbation, 2 stable chronic or 1 acute illness add add modifier 95 for video, (do not use for phone, instead use 84029-52) [facility] 04[place] Estab. patient 30-39min; chronic exacerbation, 2 stable chronic or 1 acute illness add add modifier 95 for video, (do not use for phone, instead use 39076-67) [facility] 04[place]/20[place] Unlisted special service; to be used for medical record reviews and reporting CPTII codes (1111F, etc) [facility] 09/04/2024 Other specified health statu s Unlisted special service; to be used for medical record reviews and reporting CPTII codes (1111F, etc) [facility]20[place] Unlisted special service; to be used for medical record reviews and reporting CPTII codes (1111F, etc) [facility] 09[place]04[place]20[place] Vital Signs Date [...] tive Time Current Smoking Status Never smoker 11 Sex Female History of Procedures Procedures Service Procedure code Service date Servicing provider Phone# New patient, 30-44min 1 stable chronic or 2 minor; add modifier 95 for video, modifier 93 for phone [id number] 2023-10-05 No Data Available No Data Available [...] (do not use for phone, instead use 52024-13) 34323 2024-04-25 No Data Available No Data Availa [...] reviews and reporting CPTII codes (1111F, etc) 82179 2024-09-04 No Data Available No Data Availa ble SBP < 130 (3074F) 3074F 2024-09-04 No Data Available No Data Available DBP <80 (3078F) 3078F 2024-09-04 No Data Available No Data Available Functional Status Functional Category Effective Dates SQL DEVELOPER assists with cooking, cl eaning, laundry, showering [...] Contact mental health professional:/ Transfer member to [address] [place] [address]/ Hydroxyzine (Vistaril) 25mg PO q6h PRN anxiety/ [...]
== END 2025-02-07 13:35 | disposition home or self-care (01) ==
LOC: HO.MAMMO 13:34
PROVIDERS: PCP Family Medicine; Visit Provider Family Medicine
DX: N64.4 Mastodynia (principal)
CPT/HCPCS: 76642; 77062; 77066

== ENCOUNTER → 2025-02-07 14:00 | Outpatient (BNV) | payer MEDICARE, SELFPAY | PROVIDERS: PCP Family Medicine; Visit Provider Internal Medicine | DX: N64.4 Mastodynia (principal) | CPT/HCPCS: 76642; 77066; G0279 ==

== ENCOUNTER 2025-02-08 14:08 | Outpatient (AMB) | payer MEDICARE, SELFPAY ==
--- NOTE | 2025-02-08 14:15 | A.OFFVIS_ITS ---
Vital Signs 02/08/25 14:25 Height 5 ft 3 in Weight 167 lb BMI 29.6 BP 163/79 H Blood Pressure Location Lt brachial Position Sitting Respiration 14 Pulse 74 Pulse Source Pulse Oximeter Pulse Oximetry (%) 99 Oxygen Delivery Method Room Air Intake Visit Reasons: s/p Left Dx SNB Intake Note: Pain today 07/11 Programmable Logic Controller Assembler Required: Yes Programmable Logic Controller Assembler Language: Plant Inspector Services: Programmable Logic Controller Assembler Present Programmable Logic Controller Assembler Name: Caroline #[id number] Information Interpreted: non-clinical & clinical Accompanied by: Self / Same As Patient Allergies No Known Allergies Allergy (Verified 02/08/25 14:25) HPI Comments Details: The patient is a 54-year-old female presenting with pain management and evaluation for peripheral nerve stimulation concerning her chronic left knee pain. Recently, she underwent a diagnostic saphenous nerve block with Dr. Mcclain, which provided at least 6 hours of pain relief before the discomfort returned, demonstrating potential suitability for a more prolonged nerve stimulation treatment. Her history reveals that cortisone injections, previously administered for pain relief, failed to offer long-term effects, barely lasting a month. This inadequacy has prompted her to seek further treatment with our office. She expresses that her pain impedes routine activities like prolonged standing, bending, kneeling, walking and stair climbing, which she finds increasingly difficult. Attempts at physical therapy have been hampered by continuous pain, reducing its potential effectiveness. Furthermore, the patient manages her at-home pain with limb elevation and oral medication including Gabapentin, Tylenol, and ice therapy. She sought lidocaine patches to augment pain control; however, insurance constraints have restricted this option. Denies any recent cough, cold, infection, fever or any other significant changes in medical history since last office visit. Past Procedures: 02/01/25: Left Diagnostic Saphenous Nerve Block-90% for >6 hours PRIOR: The patient is a 54-year-old female presents today for initial evaluation of chronic left knee pain due to osteoarthritis. The patient has experienced progressive and persistent pain in her left knee for the past several years, with initial onset occurring in 7546-0746. She is diagnosed with patellofemoral osteoarthritis and mild medial compartment osteoarthritis. Her symptoms includes significant pain interfering with daily activities like walking, knee bending, and stair climbing. She reports a feeling like bone grinding upon movement and consistent swelling with episodes of burning localized around the anterior and medial aspects of the knee. The patient reports sitting exacerbates her knee pain, and walking causes acute discomfort. Earlier treatments include cortisone injections, with most recent administered on 01/03/25, which delivered only transient relief. On a prior occasion, she had received similar treatment, also resulting in minimal relief. A knee brace is currently utilized to support stability, providing mild to moderate accomplishment in stability while walking. Gabapentin is employed in addressing pain linked to her fibromyalgia and associated neuropathic and diffuse body pain. - Onset: Left knee pain started 2-3 years ago, progressively worsening. - Quality: Described as severe, with grinding, sharp, aching and throbbing sensations. - Location: Primarily the left knee, anterior and medial aspects. - Radiation: Burning noted around the knee - Exacerbating Factors: Walking, prolonged sitting, stair climbing, cold weather. - Relieving Factors: Temporary relief from cortisone injections, Tylenol, NSAIDs, topical applications. - Interference: Significant interference with walking, climbing stairs, and knee bending. - Affect: The pain significantly impacts the patient's mobility and mental well- being due to its persistence. - Analgesia: Gabapentin and occasional ibuprofen or Tylenol; received cortisone injections with transient relief. - Adverse Effects: None reported. - Activities of Daily Living: Difficulty in walking, stair climbing, and bending the knee; moderate support from a knee brace. - Aberrant Drug Related Behaviors: None reported. [facility] Medical History Adrenal incidentaloma Back pain Pre-diabetes GERD (gastroesophageal reflux disease) Fibromyalgia Bipolar disorder Insomnia Anxiety Depression Syncope Mild intermittent asthma NAFLD (nonalcoholic fatty liver disease) Vertigo Sleep apnea IBS (irritable bowel syndrome) Arthritis HTN (hypertension) Surgical History History of umbilical hernia repair (~11/14/24) Hx of colonoscopy History of esophagogastroduodenoscopy (EGD) History of hysterectomy Family History Father Diabetes Arthritis Hypertension Hypercholesteremia Cancer Mother Diabetes Hypertension Arthritis Cancer Son Asthma Son Asthma Heart problem Social History Are you a primary technical healthcare consultant to a significant other at home: No Do you presently have visiting nurse or other home services: No Alcohol intake: never Patient Tobacco Use Status: Never used Tobacco Current occupational status: retired Review of Systems Const Details: - Musculoskeletal: Reports difficulty with prolonged standing, bending, kneeling, or stair climbing. - Neurological: Reports chronic pain. - Gastrointestinal: Denies kidney disease, has non-alcoholic fatty liver disease. All systems reviewed & are unremarkable except as noted in HPI and below Physical Exam General: Appears afebrile. Alert and oriented. Mood and affect appropriate. Follows and participates in conversation appropriately. Respiratory effort is unlabored. No cough. Able to transition from sit to stand unassisted. Ambulates with bilaterally normal heel strike and toe off. Multiple widespread TTPs 16/16 bilaterally, including upper and lower extremities. Extrem Left lower extremity: knee (Limited ROM due to pain. Knee brace is present.) Details: normal to inspection, tenderness Location: of the patella and of the medial joint line and crepitus; no swelling, no ecchymosis, no deformity and no unusual warmth Results Reviewed Results Reviewed: MRI LEFT KNEE WITHOUT CONTRAST 11/11/24 HISTORY: M17.12 - Unilateral primary osteoarthritis, left knee COMPARISON: Correlation is made with plain films of the left knee dated 11/06/2024. FINDINGS: Bone marrow signal intensity is normal. There is a moderate suprapatellar joint effusion. There is no Gatica's cyst. There is an approximately 2.0 cm multiseptated cystic structure posterior to the medial tibial plateau, which may represent a ganglion cyst. The anterior and posterior cruciate ligaments and medial and lateral collateral ligaments are intact. The medial and lateral menisci are intact. The patellar and quadriceps tendons and patellar retinacula are unremarkable in appearance. The popliteus tendon is intact. There is moderate osteoarthritis of the patellofemoral compartment with cartilage loss and subchondral marrow changes. Milder changes are noted involving the medial compartment. IMPRESSION: 1. Moderate joint effusion. 2.0 cm probable ganglion cyst posterior to the medial tibial plateau. 3. Moderate patellofemoral osteoarthritis. Mild osteoarthritis of the medial compartment. XR KNEE 3 VIEWS LEFT, XR KNEE 1 VIEW RIGHT 11/06/24 HISTORY: M25.562 - Pain in left knee COMPARISON: Comparison is made with the prior examination dated 07/21/2023. FINDINGS: Three views of the left knee and a single standing AP view of the right knee are submitted. Osseous mineralization is normal. There is no fracture or dislocation. There is mild tricompartmental osteoarthritis without significant change from the prior study. On the right, there is mild narrowing of medial compartment. The soft tissues are unremarkable. IMPRESSION: Mild tricompartmental osteoarthritis of the left. Assessment & Plan Assessment & Plan (1) Patellofemoral arthralgia of left knee: Code(s): M25.562 - Pain in left knee Category: Medical (2) Left knee pain: Code(s): M25.562 - Pain in left knee Category: Medical (3) Osteoarthritis of knees, bilateral: Code(s): M17.0 - Bilateral primary osteoarthritis of knee Category: Medical Qualifiers: Osteoarthritis type: primary Qualified Code(s): M17.0 - Bilateral primary osteoarthritis of knee Plan Peripheral nerve stimulation will be commenced following the successful demonstration of initial relief from the diagnostic saphenous nerve block. This treatment aims to offer a longer-lasting intervention for chronic pain management. Monitoring of progress and therapy effectiveness will occur during subsequent visits. Schedule Left Saphenous Nerve Sprint PNS placement with local and fluoroscopy guidance. Expectations, risks and benefits were reviewed. Patient is aware she will be contacted to schedule this procedure. All questions were answered and the patient is in agreement of plan. Follow-up after injections and sooner as needed. Patient was informed and verbally consented to the use of an ambient scribe for clinic note documentation during this visit. Patient Instructions: During our session, we reviewed the outcome of the recent diagnostic saphenous nerve block, which provided transient pain relief. Based on these findings, I discussed with the patient the potential benefit of moving forward with peripheral nerve stimulation. The procedure?s mechanics, including weekly dressing changes and caring for the device, were discussed thoroughly. Risks such as potential discomfort and benefits, primarily pain reduction and improved function, were considered. The patient consented to the outlined plan, expressing understanding and agreement to proceed. We will schedule her procedure promptly, facilitating discussions on progress and exploring longer- term pain management strategies as required. - Proceed with scheduling for peripheral nerve stimulation procedure. - Avoid activities that may dislodge the stimulation device, such as soaking in a tub or swimming. - Attend weekly appointments for device management, dressing changes and progress evaluation. - Monitor pain levels and report any significant changes or concerns. - Continue elevating left knee and use Gabapentin as prescribed. - Contact the office for any issues with the nerve stimulation device or increased pain. Coding Level of Care Code Est Pt Level 3 (69215) Complex EM visit Add On G2211 Diagnoses Patellofemoral arthralgia of left knee M25.562 Left knee pain M25.562 Primary osteoarthritis of both knees M17.0 Osteoarthritis type: primary
[2025-02-08 14:25] VITALS: BP 163/79; PULSE 74; RESP 14; O2SAT 99; BMI 29.6
--- OUTSIDE RECORDS SUMMARY | 2025-02-08 16:54 | XMS_ITS ---
Author Name MS. Aba Kirkpatrick APRN Address [address] [place] [address] Phone [phone] [facility] Care Team Providers Care Sec Reporting Consultant Name Role Phone Debbie Kirkpatrick Unavailable [phone] Unavailable Unavailable Unavailable DOROTHEA NEAL Unavailable [phone] Carina Baird Unavailable Unavailable Reason for Referral [...] N/A Other problems related to [facility] facilities and other health care Active 2024-04-25 N/A Encounters Encounters Type Facility Date of Service Diagnosis/Co mplaint New patient, 30-44min 1 stable chronic or 2 minor; add modifier 95 for video, modifier 93 for phone [facility], ([place]) 10/05/2023 Major depressive disorder, recurrent, mildInsomnia, unspecifiedGeneralized anxiety disorderGastro-esophageal reflux disease without esophagitisDizziness and giddinessEssential (primary) hypertensionNeuralgia and neuritis, unspecifiedVitamin D deficiency, unspecifiedMild intermittent asthma, uncomplicated New patient, 30-44min 1 stable chronic or 2 minor; add modifier 95 for video, modifier 93 for phone [facility] New patient, 30-44min 1 stable chronic or 2 minor; add modifier 95 for video, modifier 93 for phone [facility]20[place] New patient, 30-44min 1 stable chronic or 2 minor; add modifier 95 for video, modifier 93 for phone [facility]20[place] New patient, 30-44min 1 stable chronic or 2 minor; add modifier 95 for video, modifier 93 for phone [facility]20[place] New patient, 30-44min 1 stable chronic or 2 minor; add modifier 95 for video, modifier 93 for phone [facility]20[place] Estab. patient 30-39min; chronic exacerbation, 2 stable chronic or 1 acute illness add add modifier 95 for video, (do not use for phone, instead use 94495-50) [facility] 04[place]/2024 Major depressive disorder, recurrent, mildInsomnia, unspecifiedGeneralized anxiety disorderGastro-esophageal reflux disease without esophagitisDizziness and giddinessEssential (primary) hypertensionNeuralgia and neuritis, unspecifiedVitamin D deficiency, unspecifiedMild intermittent asthma, uncomplicatedOther problems related to medical facilities and other health care Estab. patient 30-39min; chronic exacerbation, 2 stable chronic or 1 acute illness add add modifier 95 for video, (do not use for phone, instead use 74368-36) [facility] ([place] 04/25/2024 Estab. patient 30-39min; chronic exacerbation, 2 stable chronic or 1 acute illness add add modifier 95 for video, (do not use for phone, instead use 44690-89) [facility] Estab. patient 30-39min; chronic exacerbation, 2 stable chronic or 1 acute illness add add modifier 95 for video, (do not use for phone, instead use 62385-92) [facility] 04[place] Estab. patient 30-39min; chronic exacerbation, 2 stable chronic or 1 acute illness add add modifier 95 for video, (do not use for phone, instead use 23100-01) [facility] Estab. patient 30-39min; chronic exacerbation, 2 stable chronic or 1 acute illness add add modifier 95 for video, (do not use for phone, instead use 90948-20) [facility] 04[place]20[place] Estab. patient 30-39min; chronic exacerbation, 2 stable chronic or 1 acute illness add add modifier 95 for video, (do not use for phone, instead use 05247-65) [facility] 04[place]20[place] Estab. patient 30-39min; chronic exacerbation, 2 stable chronic or 1 acute illness add add modifier 95 for video, (do not use for phone, instead use 26160-45) [facility] 04[place]20[place] Estab. patient 30-39min; chronic exacerbation, 2 stable chronic or 1 acute illness add add modifier 95 for video, (do not use for phone, instead use 47821-17) [facility] 04[place]20[place] Unlisted special service; to be used for medical record reviews and reporting CPTII codes (1111F, etc) [facility] 09/04/2024 Other specified health statu s Unlisted special service; to be used for medical record reviews and reporting CPTII codes (1111F, etc) [facility]20[place] Unlisted special service; to be used for medical record reviews and reporting CPTII codes (1111F, etc) [facility] Vital Signs Date [...] tive Time Current Smoking Status Never smoker 2025-01-30 0 Sex Female History of Procedures Procedures Service Procedure code Service date Servicing provider Phone# New patient, 30-44min 1 stable chronic or 2 minor; add modifier 95 for video, modifier 93 for phone [id number] 2023-10-05 No Data Available No Data Available [...] (do not use for phone, instead use 22565-67) 48000 2024-04-25 No Data Available No Data Availa [...] reviews and reporting CPTII codes (1111F, etc) 14043 2024-09-04 No Data Available No Data Availa ble SBP < 130 (3074F) 3074F 2024-09-04 No Data Available No Data Available DBP <80 (3078F) 3078F 2024-09-04 No Data Available No Data Available Functional Status Functional Category Effective Dates CHILD SUPPORT INVESTIGATOR assists with cooking, cl eaning, laundry, showering [...] Contact mental health professional:/ Transfer member to [address] [place] [address]/ Hydroxyzine (Vistaril) 25mg PO q6h PRN anxiety/ [...]
--- OUTSIDE RECORDS SUMMARY | 2025-02-08 16:54 | XMS_ITS | Encounter Summary ---
Author Organization [facility] Address [address] [facility] 7t [place] [address] Care Team Providers Care Assistant Professor Of Anthropology Name Role Phone Alvina Mccartney MD Primary Care Provider [phone] Riky Tanner Unavailable Mariella Mcdonnell Unavailable Jina Vences MD Unavailable Shadia Morocho Unavailable Kendall Bates MD Unavailable [phone] Sara Pritchett Unavailable Encounter Details Date Type Department Care Team (Late st Contact Info) Description 10/16/2022 Orders Only [facility] [address] [place] [address] [phone] Anel Espinoza, RN Social History Tobacco Use [...] Care Team (Late st Contact Info) Description 02/12/2025 11:00 AM EDT Office Visit [facility] [address] [place] [address] [phone] documented as of this encounter Visit Diagnoses Not on filedocumented in this encounter Care Teams Assistant Professor Of Anthropology Relationship Specialty Start Date End Date Alvina Mccartney MD [address] [place] [address] PCP - General Family Medicine 11/01/18 Riky Tanner [address] 3rd [place] [address] Cardiology 10/03/24 Mariella Mcdonnell [address] [address] Sleep Medicine 10/11/24 Jina Vences MD [address] [place] [address] Endocrinology 11/05/24 Shadia Morocho PA [address] [place] [address] Orthopaedic Surgery 11/07/24 Kendall Bates MD [address] [place] [address] General Surgery 11/28/24 Sara Pritchett [address] [place] [address] Pain Medicine 01/16/25 documented as of this encounter
--- OUTSIDE RECORDS SUMMARY | 2025-02-08 16:54 | XMS_ITS | Encounter Summary ---
Author Organization [facility] Address [address] [facility] 7t [place] [address] Care Team Providers Care Home Improvement Installer Name Role Phone Alvina Mccartney MD Primary Care Provider [phone] Riky Tanner Unavailable Mariella Mcdonnell Unavailable Jina Vences MD Unavailable Shadia Morocho Unavailable Kendall Bates MD Unavailable [phone] Sara Pritchett Unavailable Reason for Visit * Reason Comments Med Refill Encounter Details Date Type Department Care Team (Late st Contact Info) Description 06/05/[address] [facility] [address] [place], [place] [phone] Alvina Mccartney MD [address] [place], [place] [phone] Pain Social History Tobacco Use Types Packs/Day [...] Description 02/12/2025 11:00 AM EDT Office Visit [facility] [address] [place] [address] documented as of this encounter Visit Diagnoses Diagnosis Pain Generalized pain documented in this encounter Additional Health Concerns Assessment Noted Time PHQ-9 Depression Total Score: 8 07/26/20 23 10:55 AM EDT documented as of this encounter Care Teams Home Improvement Installer Relationship Specialty Start Date End Date Alvina Mccartney MD [address] [place] [address] PCP - General Family Medicine 11/01/18 Riky Tanner [address] [facility] 3rd [place] [address] Cardiology 10/03/24 Mariella [facility] [address] [address] Sleep Medicine 10/11/24 Jina Vences MD [address] [place] [address] Endocrinology 11/05/24 Shadia Morocho PA [address] [place] [address] Orthopaedic Surgery 11/07/24 Kendall Bates MD [address]rd [place] [address] General Surgery 11/28/24 Sara Pritchett [address] [place] [address] Pain Medicine 01/16/25 documented as of this encounter
--- OUTSIDE RECORDS SUMMARY | 2025-02-08 16:54 | XMS_ITS | Encounter Summary ---
Author Organization [facility] Address [address] [facility] 7t [place] [address] Care Team Providers Care Last Waxer Name Role Phone Alvina Mccartney MD Primary Care Provider [phone] Riky Tanner Unavailable Mariella Mcdonnell Unavailable Jina Vences MD Unavailable Shadia Morocho Unavailable Kendall Bates MD Unavailable [phone] Sara Pritchett Unavailable Reason for Visit * Reason Comments Med Refill Encounter Details Date Type Department Care Team (Late st Contact Info) Description 01/18/2025 Refill [facility] [address] [place], [place] [phone] Alvina Mccartney MD [address] [place], [place] [phone] Mild intermittent asthma without complication Social History [...] Description 02/12/2025 11:00 AM EDT Office Visit [facility] [address] [place] [address] documented as of this encounter Visit Diagnoses Diagnosis Mild intermittent asthma without complication documented in this encounter Additional Health Concerns Assessment Noted Time PHQ-9 Depression Total Score: 17 025 9:49 AM EST documented as of this encounter Care Teams Last Waxer Relationship Specialty Start Date End Date Alvina Mccartney MD [address] [place] [address] PCP - General Family Medicine 11/01/18 Riky Tanner [address] 3rd [place] [address] Cardiology 10/03/24 Mariella Mcdonnell [address] [phone] Sleep Medicine 10/11/24 Jina Vences MD [address] [place] [address] Endocrinology 11/05/24 Shadia Morocho PA [address] [place] [address] Orthopaedic Surgery 11/07/24 Kendall Bates MD [address] 3rd [place] [address] General Surgery 11/28/24 Sara Pritchett [address] [place] [address] Pain Medicine 01/16/25 documented as of this encounter
--- OUTSIDE RECORDS SUMMARY | 2025-02-08 16:54 | XMS_ITS | Encounter Summary ---
Author Organization [facility] Address [address] [facility] 7t [place] [address] Care Team Providers Care Electrical Line Splicer Name Role Phone Alvina Mccartney MD Primary Care Provider [phone] Riky Tanner Unavailable Mariella Mcdonnell Unavailable [phone] Jina Vencse MD Unavailable Shadia Morocho Unavailable Kendall Bates MD Unavailable Sara Pritchett Unavailable Encounter Details Date Type Department Care Team (Late st Contact Info) Description 04/14/2024 Abstract [facility] [address] [place] [address] Hayley Briscoe [place] Social History Tobacco Use [...] Description 02/12/2025 11:00 AM EDT Office Visit [facility] [address] [place] [address] documented as of this encounter Procedures Procedure [...] documented as of this encounter Care Teams Electrical Line Splicer Relationship Specialty Start Date End Date Alvina Mccartney MD [address] [place] [address] PCP - General Family Medicine 11/01/18 Riky Tanner [address] [place] [address] 3rd [place] [address] Cardiology 10/03/24 Mariella Mcdonnell [address] [address] Sleep Medicine 10/11/24 Jina Vences MD [address] [place] [address] Endocrinology 11/05/24 Shadia Morocho PA [address] [place] [address] Orthopaedic Surgery 11/07/24 Kendall Bates MD [address]rd [place] [address] General Surgery 11/28/24 Sara Pritchett [address] [place] [address] Pain Medicine 01/16/25 documented as of this encounter
--- OUTSIDE RECORDS SUMMARY | 2025-02-08 16:54 | XMS_ITS | Clinical Summary ---
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 12/14/19 25 Active FT ClearLax 17 GM/SCOOP powder DISSOLVE 17 GRAMS IN 8 OUNCES OF WATER, COFFEE, OR TEA AND DRINK TWICE DAILY DIRECTED 01/02/20 25 Active hydrOXYzine HCl (Atarax) 10 MG tablet Take 1 tablet by mouth every 8 (eight) hours if needed for anxiety. 01/23/20 25 Active LORazepam (Ativan) 1 MG tablet TAKE 1 TABLET BY MOUTH 30 MINUTES BEFORE PROCEDURE ON 02/01/2025 NEEDED FOR ANXIETY 01/30/20 25 Active primidone (Mysoline) 50 MG tablet 02/01/20 25 Active DULoxetine (Cymbalta) [address] capsule 02/01/20 25 Active gabapentin (Neurontin) 400 MG capsule TAKE 1 CAPSULE BY MOUTH THREE TIMES DAILY IN THE MORNING, EVENING AND AT BEDTIME 90 capsule 02/09/20 25 Active gabapentin (Neurontin) 400 MG capsule 01/17/20 25 025 Discontinued(Re order (will not trigger notification to Pharmacy)) Active Problems Problem Noted Date Diagnosed Date Breast pain, left 01/01/2025 Overview (01/01/2025): Generalized right-sided breast pain. No concerning red flag symptoms. -ordered mammogram 01/01/25 Assessment & Plan (01/01/2025 5:26 PM EST): Generalized right-sided breast pain. No concerning red flag symptoms. -ordered mammogram 01/01/25 Low back pain at multiple sites 01/01/2025 Overview (02/01/2025): Chronic back pain. Likely due to fibromyalgia. -referred to acupuncture 01/01/25 -referred to pain management 01/01/25 -referred to chronic pain group 01/01/25 -s/p Left adductor canal saphenous nerve block, ultrasound-guided 01/31/2025 Assessment & Plan (01/01/2025 5:38 PM EST): [...] (01/01/2025): -seen by Ariel Morocho PA-C of [facility] 11/07/23 -MR/MR knee LT [...] EST): -seen by Ariel Morocho PA-C of [facility] 11/07/23 -MR/MR knee LT [...] prescribe lidocaine patches to reevaluate. -seen by [facility] 01/02/25 given left knee [...] describing symptoms of lightheadedness when turning head [id number] which sounds more like vertigo. No clear [...] due after 07/05/25 -eye care facilitated by [facility] -dental home is encouraged -Health care [...] Followed by Dr. Riky Tanner MD at [facility]. Note from 09/2024 reviewed. -Blood pressure is at goal -Continue lifestyle modifications -Continue current medications -hydrochlorothiazide discontinued by Dr. Tanner 09/2024 Assessment & Plan (01/01/2025 5:24 PM EST): Followed by Dr. Riky Tanner MD at [facility]. 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 Assessment & Plan (02/05/2025 2:41 PM EDT): Pt attended and participated in chronic pain group today - good engagement with group model of care - continue to use combination of non-pharmacological modalities to address pain - followup in 1-2 weeks for planting Assessment & Plan (01/01/2025 5:44 PM EST): Explained that FM is a type of nerve hypersensitivity and that physical activity is not contraindicated; in fact, it may improve symptomsrecommended our group acupuncture program, stress reduction, etc. 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 Obstructive sleep apnea syndrome 12/12/2018 Overview (10/11/2024): Followed by [facility]. Sleep study 10/07/18 reveals severe SILVER. -Currently using CPAP nightly She started 11/05/2018 -seen by CIARA Lepe on 10/09/24 continue CPAP 14 cmH2O. Supplies are though [facility] Assessment & Plan (01/01/2025 5:24 PM EST): Followed by [facility]. Sleep study 10/07/18 reveals severe SILVER. -Currently using CPAP nightly She started 11/05/2018 -seen by CIARA Lepe on 10/09/24 continue CPAP 14 cmH2O. Supplies are though [facility] Assessment & Plan (07/21/2023 1:56 PM EDT): Followed by [facility]. Sleep study 10/07/18 reveals severe SILVER. -Currently [...] and therapist. No SI/HI. Reports going to [facility], where she sees her specialists. Assessment & Plan (01/01/2025 5:41 PM EST): At visit in 11/2017, we stopped depo, as we presumed was causing depression Depression has not improved, as she is being seen by psychiatrist and therapist. No SI/HI. Reports going to [facility], where she sees her specialists. Assessment [...] and therapist. No SI/HI. Reports going to [facility], where she sees her specialists. Resolved [...] Encounters Date Type Department Care Team Description 02/08/2025 Refill [facility] [address] [place] [address] Alvina Mccartney MD 02/06/2025 Travel 02/05/2025 11:00 AM EDT Office Visit [facility] [address] [place] [phone] Kath Soto MD Fibromyalgia (Primary Dx); Chronic pain of left knee 02/05/2025 Travel 01/31/2025 Travel 01/29/2025 11:00 AM EDT Office Visit [facility] [address] [place] [phone] Kath Soto MD Fibromyalgia (Primary Dx); Chronic pain of left knee 01/29/2025 Travel 01/23/2025 Travel 01/22/2025 11:00 AM EDT Office Visit [facility] [address] [place] [phone] Kath Soto MD Fibromyalgia (Primary Dx); Chronic pain of left knee 01/22/2025 Travel 01/18/2025 Travel 01/18/2025 Refill [facility] [address] [place] [phone] Alvina Mccartney MD Mild intermittent asthma without complication 01/17/2025 Telephone [facility] [address] [place] [phone] Alvina Mccartney MD Mondays Chronic Pain Group 01/15/2025 11:00 AM EDT Office Visit [address] [phone] Kath Soto MD Low back pain at multiple sites (Primary Dx); Fibromyalgia; Chronic pain of left knee 01/15/2025 Travel 01/13/2025 Travel 01/12/2025 Telephone [facility] [address] [place] [phone] Alvina Mccartney MD Schedule Wednesday Pain Group appt 01/03/2025 Orders Only [facility] [address] [place] [phone] Alvina Mccartney MD Breast pain, left (Primary Dx); Screening mammogram for breast cancer 01/02/2025 Telephone [facility] [address] [place] [phone] Alvina Mccartney MD 01/01/2025 9:45 AM EST Office Visit [facility] [address] [place] [phone] Alvina Mccartney MD Essential hypertension (Primary Dx); Fibromyalgia; Breast pain, left; Low back pain at multiple sites; Obstructive sleep apnea syndrome; Chronic pain of right knee; Screening mammogram for breast cancer; Major depression single episode, in partial remission ([facility]); Overweight; Dietary counseling; Exercise counseling; Encounter for immunization; Hypercholesteremia; Mild intermittent asthma without complication; Chronic midline low back pain without sciatica; Adrenal nodule ([facility]/H[facility]); Chronic pain of left knee 01/01/2025 Travel 12/31/2024 Travel 12/27/2024 Refill [facility] [address] [place] [phone] Alvina Mccartney MD Pain 12/25/2024 Telephone [facility] [address] [place] [phone] Alvina Mccartney MD chartprep 12/19/2024 Patient Outreach [facility] [address] [place] [phone] Alvina Mccartney MD Pre-visit Planning (Pre-visit planning - LVM ) 12/01/2024 Refill [facility] [address] [place] [phone] Alvina Mccartney MD Pain 12/01/2024 Refill [facility] [address] [place] [phone] Alvina Mccartney MD Pain 11/11/2024 Orders Only [facility] External Provider, [facility] Chronic pain of left knee [...] Description 02/12/2025 11:00 AM EDT Office Visit [facility] [address] [place] [phone] Health Maintenance Due Date Last Done Comments CT Colonography 1972 FIT DNA/Cologuard 1972 FIT 1972 FOBT 1972 Sigmoidoscopy 1972 Zoster Vaccines (1 of 2) 2022 Depression Monitoring 07/04/2025 01/01/2025, 025 Diabetes: Hemoglobin A1C 07/05/2025 024, 12/27/2023, 01/18/2023 Alcohol/Substance Use Screening 01/01/2026 01/01/2025 COVID-19 Vaccine ( season) 2026 02/14/2021, 01/17/2021 Postponed from 07/02/2024 (Patient Refused) Depression Screening 01/01/2026 01/01/2025, 01/02/20 Family Planning (PISQ) 01/01/2026 01/01/2025 SDOH Screening 01/01/2026 01/01/2025 Tobacco Screening 02/05/2026 02/05/2025 Mammogram 02/07/2026 02/07/2025, 04/0 07/2025, 12/01/2023, Additional history exists Cervical Cancer Screening 07/26/2028 HPV/Cotest 07/26/2028 07/26/2023, [...] Procedure Name Priority Date/Time Associated Diagnosis Comments BI US BREAST LIMITED LEFT Routine 02/07/2025 2:30 PM EDT Breast pain, left Screening mammogram for breast cancer BI MAMMOGRAM DIAGNOSTIC TOMOSYNTHESIS BILATERAL Routine 02/07/2025 1:50 PM EDT Breast pain, left Screening mammogram for breast cancer MR KNEE WO CONTRAST LEFT Routine 11/11/2024 7:52 PM EST DEXAMETHASONE Routine 11/10/2024 8:10 AM EST ACTH, PLASMA Routine 11/10/2024 8:10 AM EST CORTISOL RANDOM Routine 11/10/2024 8:10 AM EST LIPID PANEL, STANDARD Routine 07/08/2024 9:02 AM EDT Essential hypertension POCT GLYCATED HEMOGLOBIN, TOTAL Routine 07/05/2024 10:53 AM EDT Essential hypertension HM COLONOSCOPY Routine 04/04/2024 HEPATITIS C ANTIBODY Routine 07/29/2023 9:23 AM EDT Encounter for hepatitis C screening test for low risk patient HPV MRNA E6/E7 REFLEX TO HPV 16, 18/45 Routine 07/26/2023 10:57 AM EDT PAP SMEAR Routine 07/26/2023 10:57 AM EDT HM HIV 1/2 ANTIGEN AND ANTIBODY Routine 01/21/2021 from Last 3 Months or Most Recently Relevant to Health Maintenance Results * BI US Breast Limited Left (02/07/2025 2:30 PM EDT) Anatomical Region Laterality Modality Breast Left Ultrasound 02/07/2025 2:30 PM EDT Narrative 02/07/2025 2:58 PM EDT ? [facility] [place] ? [address] ?[place] [address] ? Ultrasound Report ? Signed ? Patient: Paulo,Lety ?MR#: [id number] ?? 1571 ? : 1970 ?Acct:[id number] ? Age/Sex: 54 / F ?ADM Date: 04/09/25 ? Loc: HO.MAMMO ? Attending Dr: Alvina Mccartney MD ? Ordering Physician: Alvina Mccartney MD ?? Date of Service: 02/07/25 ?? Procedure(s): US breast LT limited mamm only ?? Accession Number(s): [id number] ? cc: Alvina Mccartney MD ? EXAMINATION: ?? MM DIAGNOSTIC DIGITAL BREAST TOMOSYNTHESIS, BILATERAL ?? Left Limited ultrasound. ? CLINICAL INFORMATION: ? Lateral left breast pain. ? COMPARISON: ?? Mammography: Comparison is made with relevant prior exams. ? TECHNIQUE: ?? Digital breast mammography with tomosynthesis is performed in both the ?? craniocaudal and mediolateral oblique views along with computer-aided ?? detection (CAD). ? FINDINGS: ?? There are scattered areas of fibroglandular density (ACR BI-RADS breast ?? composition Category b). ?? Circumscribed oval mass with associated dystrophic internal ?? calcifications stable on prior mammograms back to 2019 and therefore ?? benign.. ?? There are no significant masses, abnormal calcifications, or other ?? abnormalities. ? Targeted color Doppler ultrasound scanning in the area the patient's ?? pain demonstrates normal fibroglandular breast tissue and the staple ?? oval hypoechoic mass with internal calcifications at 4:00 8 cm from the ?? nipple measuring 17 x 12 x 20 mm. No other sonographic normality is ?? seen. ? Results are provided to the patient at time of visit by the ?? technologist. ? US/US breast LT limited mamm only ?? IMPRESSION: ?? Stable calcified mass oval in the central outer breast. Benign. ?? No other mammographic or sonographic abnormality to account for the ?? patient's left breast pain. Recommend clinical evaluation and follow-up. ? ASSESSMENT: ? BI-RADS BI-RADS 2 - Benign Findings ? RECOMMENDATION: ?? 1 year F/U ? This patient's information was entered into a reminder system with a ?? target due date for their next mammogram. ? Electronically signed by: ??Shameka Wiley DO ??02/07/2025 02:55 PM EDT ?? RP ? Dictated By: ?Shameka Wiley DO ? Signed By: ?<Electronically signed by Shameka Wiley, DO in OV> ? 02/07/25 1455 ? DD/ 1430 ? TD/TT: 02/07/25 1444 ? Fishing Line Winding Machine Operator: ? Procedure Note Donotuseinterpreter, Image - [facility]20[facility] [address] [place] [address] Ultrasound Report Signed Patient: Luann Bates#: [id number] 1571 : 1970Acct:[id number] Age/Sex: 54 / FADM Date: 02/07/25 Loc: HO.MAMMO Attending Dr: Alvina Mccartney MD Ordering Physician: Alvina Mccartney MD Date of Service: 02/07/25 Procedure(s): US breast LT limited mamm only Accession Number(s): [id number] cc: Alvina Mccartney MD EXAMINATION: MM DIAGNOSTIC DIGITAL BREAST TOMOSYNTHESIS, BILATERAL Left Limited ultrasound. CLINICAL INFORMATION: Lateral left breast pain. COMPARISON: Mammography: Comparison is made with relevant prior exams. TECHNIQUE: Digital breast mammography with tomosynthesis is performed in both the craniocaudal and mediolateral oblique views along with computer-aided detection (CAD). FINDINGS: There are scattered areas of fibroglandular density (ACR BI-RADS breast composition Category b). Circumscribed oval mass with associated dystrophic internal calcifications stable on prior mammograms back to 2019 and therefore benign.. There are no significant masses, abnormal calcifications, or other abnormalities. Targeted color Doppler ultrasound scanning in the area the patient's pain demonstrates normal fibroglandular breast tissue and the staple oval hypoechoic mass with internal calcifications at 4:00 8 cm from the nipple measuring 17 x 12 x 20 mm. No other sonographic normality is seen. Results are provided to the patient at time of visit by the technologist. US/US breast LT limited mamm only IMPRESSION: Stable calcified mass oval in the central outer breast. Benign. No other mammographic or sonographic abnormality to account for the patient's left breast pain. Recommend clinical evaluation and follow-up. ASSESSMENT: BI-RADS BI-RADS 2 - Benign Findings RECOMMENDATION: 1 year F/U This patient's information was entered into a reminder system with a target due date for their next mammogram. Electronically signed by: Shameka Wiley DO 02/07/2025 02:55 PM EDT Dictated By: Shameka Wiley DO Signed By: <Electronically signed by Shameka Wiley DO in OV> 02/07/25 1455 DD/ 1430 TD/TT: 02/07/25 1444 Fishing Line Winding Machine Operator: us Alvina Mccartney MD IMG US PROCEDURES Final Re sult * BI Mammogram Diagnostic Tomosynthesis Bilateral (02/07/2025 1:50 PM EDT) Anatomical Region Laterality Modality Breast Bilateral Mammography 02/07/2025 1:50 PM EDT Narrative 02/07/2025 2:58 PM EDT ? [facility] [place] ? [address] ?[place] [address] ?[phone] ? Mammography Report ? Signed ? Patient: Isis Bateslyn ?MR#: [id number] ?? 1571 ? : 1970 ?Acct:[id number] ? Age/Sex: 54 / F ?ADM Date: 02/07/25 ? Loc: HO.MAMMO ? Attending Dr: Alvina Mccartney MD ? Ordering Physician: Alvina Mccartney MD ?Results: 2B ?? enign Findings ? Date of Service: 02/07/25 ?Follow Up: 1 Year From Orig ?? inal Mammogram ? Procedure(s): MM tomosynthesis diagnostic BI ?? Accession Number(s): [id number] ? cc: Alvina Mccartney MD ? EXAMINATION: ?? MM DIAGNOSTIC DIGITAL BREAST TOMOSYNTHESIS, BILATERAL ?? Left Limited ultrasound. ? CLINICAL INFORMATION: ? Lateral left breast pain. ? COMPARISON: ?? Mammography: Comparison is made with relevant prior exams. ? TECHNIQUE: ?? Digital breast mammography with tomosynthesis is performed in both the ?? craniocaudal and mediolateral oblique views along with computer-aided ?? detection (CAD). ? FINDINGS: ?? There are scattered areas of fibroglandular density (ACR BI-RADS breast ?? composition Category b). ?? Circumscribed oval mass with associated dystrophic internal ?? calcifications stable on prior mammograms back to 2019 and therefore ?? benign.. ?? There are no significant masses, abnormal calcifications, or other ?? abnormalities. ? Targeted color Doppler ultrasound scanning in the area the patient's ?? pain demonstrates normal fibroglandular breast tissue and the staple ?? oval hypoechoic mass with internal calcifications at 4:00 8 cm from the ?? nipple measuring 17 x 12 x 20 mm. No other sonographic normality is ?? seen. ? Results are provided to the patient at time of visit by the ?? technologist. ? MM/MM tomosynthesis diagnostic BI ?? IMPRESSION: ?? Stable calcified mass oval in the central outer breast. Benign. ?? No other mammographic or sonographic abnormality to account for the ?? patient's left breast pain. Recommend clinical evaluation and follow-up. ? ASSESSMENT: ? BI-RADS BI-RADS 2 - Benign Findings ? RECOMMENDATION: ?? 1 year F/U ? This patient's information was entered into a reminder system with a ?? target due date for their next mammogram. ? Electronically signed by: ??Shameka Aramnupur DO ??02/07/2025 02:55 PM EDT ?? RP ? Dictated By: ?Shameka Wiley DO ? Signed By: ?<Electronically signed by Shameka Wiley, DO in OV> ? 02/07/25 1455 ? DD/ 1350 ? TD/TT: 02/07/25 1405 ? Fishing Line Winding Machine Operator: ? Procedure Note Lesa, Image - 02/07/2025 [facility] [address] [place] [address] Mammography Report Signed Patient: Luann Bates#: [id number] 1571 : 1970Acct:[id number] Age/Sex: 54 / FADM Date: 02/07/25 Loc: HO.MAMMO Attending Dr: Alvina Mccartney MD Ordering Physician: Alvina Mccartney MDResults: 2B enign Findings Date of Service: 02/07/25Follow Up: 1 Year From Orig inal Mammogram Procedure(s): MM tomosynthesis diagnostic BI Accession Number(s): [id number] cc: Alvina Mccartney MD EXAMINATION: MM DIAGNOSTIC DIGITAL BREAST TOMOSYNTHESIS, BILATERAL Left Limited ultrasound. CLINICAL INFORMATION: Lateral left breast pain. COMPARISON: Mammography: Comparison is made with relevant prior exams. TECHNIQUE: Digital breast mammography with tomosynthesis is performed in both the craniocaudal and mediolateral oblique views along with computer-aided detection (CAD). FINDINGS: There are scattered areas of fibroglandular density (ACR BI-RADS breast composition Category b). Circumscribed oval mass with associated dystrophic internal calcifications stable on prior mammograms back to 2019 and therefore benign.. There are no significant masses, abnormal calcifications, or other abnormalities. Targeted color Doppler ultrasound scanning in the area the patient's pain demonstrates normal fibroglandular breast tissue and the staple oval hypoechoic mass with internal calcifications at 4:00 8 cm from the nipple measuring 17 x 12 x 20 mm. No other sonographic normality is seen. Results are provided to the patient at time of visit by the technologist. MM/MM tomosynthesis diagnostic BI IMPRESSION: Stable calcified mass oval in the central outer breast. Benign. No other mammographic or sonographic abnormality to account for the patient's left breast pain. Recommend clinical evaluation and follow-up. ASSESSMENT: BI-RADS BI-RADS 2 - Benign Findings RECOMMENDATION: 1 year F/U This patient's information was entered into a reminder system with a target due date for their next mammogram. Electronically signed by: Shameka Wiley DO 02/07/2025 02:55 PM EDT RP Dictated By: Shameka Wiley DO Signed By: <Electronically signed by Shameka Wiley DO in OV> 02/07/25 1455 DD/ 1350 TD/TT: 02/07/25 1405 Fishing Line Winding Machine Operator: us Alvina Mccartney MD IMG BI PROCEDURES Final Re sult * MR Knee w/o Contrast Left (11/11/2024 7:52 PM EST) Anatomical Region Laterality Modality Magnetic Resonan ce 11/11/2024 7:52 PM EST Narrative 11/14/2024 8:36 AM EST ? [facility] ?[address] ?[place] [address] ? Magnetic Resonance Report ? Signed ? Patient: Paulo,Lety ?MR#: [id number] ?? 1571 ? : 1970 ?Acct:[id number] ? Age/Sex: 54 / F ?ADM Date: 11/11/24 ? Loc: HO.MRI ? Attending Dr: Ariel Morocho PA-C ? Ordering Physician: Ariel Morocho PA-C ?? Date of Service: 11/11/24 ?? Procedure(s): MR knee LT wo con ?? Accession Number(s): [id number] ? cc: Alvina Mccartney MD; Ariel Morocho [...] ? DD/ 51 ? TD/TT: 11/11/242014 ? Fishing Line Winding Machine Operator: ? Procedure Note Lesa, Image - 11/14/2024 [place] [address] Magnetic Resonance Report Signed Patient: Luann Bates#: [id number] 1571 : 1970Acct:[id number] Age/Sex: 54 / FADM Date: 11/11/24 Loc: HO.MRI Attending Dr: Ariel Morocho PA-C Ordering Physician: Ariel Morocho PA-C Date of Service: 11/11/24 Procedure(s): MR knee LT wo con Accession Number(s): [id number] cc: Alvina Mccartney MD; Ariel Morocho PA-C [...] in OV> 11/14/24832 DD/ 51 TD/TT: 11/11/242014 Fishing Line Winding Machine Operator: [facility] External Provider IMG MRI PROCEDURES Final Result * Dexamethasone (11/10/2024 8:10 AM EST) [facility] Signature Dexamethasone 260 ng/dL [facility] Comment:Reference Ranges for Dexamethasone:Baseline: Less than 20 ng/dL1 mg dexamethasone overnight: 180-550 ng/dL (8:00-10:00 AM)This test was developed and its analytical performancecharacteristics have been determined by [email or web address].It has not been cleared or approved by FDA. This assay hasbeen validated pursuant to the CLIA regulations and is usedfor clinical purposes.THIS TEST WAS PERFORMED AT:[employer]/[place] [id number] [place] [id number] COTTON MD,PHD,JENNIFER 11/10/2024 8:10 AM EST 11/10/2024 8:10 AM EST Generic External Data Provider LAB BLOOD ORDERAB LES Final Result Performing Organization Address [facility] Phone Number [facility] [address] [place] [phone] * Cortisol Random (11/10/2024 8:10 AM EST) Cortisol Random <1.0 ug/dL [facility] Comment:Reference Range*: Be fore 10 am 6.2-19.4 ug/dL After 5 pm 2.3-11.9 ug/dL*Please interpret above results accordingly.This test was performed using the [facility] chemiluminescentmethod. Values obtained from different assay methods cannotbe used interchangeably.Patients receiving fludrocortisone, prednisolone orprednisone may show artificially elevated cortisol valuesdue to cross-reactivity. 11/10/2024 8:10 AM EST 11/10/2024 8:10 AM EST Generic External Data Provider LAB BLOOD ORDERAB LES Final Result Performing Organization Address [facility] de Phone Number [facility] [address] [place] [phone] * (ABNORMAL) ACTH, Plasma (11/10/2024 8:10 AM EST) ACTH, Plasma <5(A) 6 - 50 pg/mL [facility] Comment:Reference range appl ies only to specimens collectedbetween 7am-10am.THIS TEST WAS PERFORMED AT:[employer]/[facility] [place] [address]XNBRTPFFERMÍN CHEUNG MD,PHD 11/10/2024 8:10 AM EST 11/10/2024 8:10 AM EST Generic External Data Provider LAB BLOOD ORDERAB LES Final Result Performing Organization Address City/[facility]/ZIP Co de Phone Number [facility] [address] [place] [address] [phone] * (ABNORMAL) Lipid Panel, Standard (07/08/2024 9:02 AM EDT) Triglycerides 101 <150 mg/dL [facility] Comment:Desirable Triglyceri de: less than 150 mg/dLBorderline High Triglyceride 150-199 mg/dLHigh Triglyceride: 200-499 mg/dLVery High Triglyceride: greater than or equal to 5OO mg/dL Cholesterol 184 <200 mg/dL [facility] Comment:Desirable Cholestero l: less than 200 mg/dLBorderline High Cholesterol: 200-239 mg/dLHigh Cholesterol: greater than 239 mg/dL LDL Cholesterol Calculated 128(H) <100 mg/dL [facility] Comment:Desirable LDL: less than 100 mg/dLNear Optimal/Above Optimal LDL: 110- 129 mg/dLBorderline High LDL: 130-159 mg/dLHigh LDL: 160-189 mg/dLVery High LDL: greater than or equal to 190 mg/dL HDL Cholesterol 36(L) >40 mg/dL [facility] Comment:Desirable HDL: great er than 40 mg/dL Note: This HDL assay may give artificially low results in patients with liver disease. Blood Venous blood specimen / Unknown 07/08/2024 9:02 AM EDT 07/08/2024 9:02 AM EDT Alvina Mccartney MD LAB BLOOD ORDERABLES Final Result [facility] [address] [place] [address] [phone] * POCT HGB A1C (07/05/2024 10:53 AM EDT) Hemoglobin A1C 5.9 4.0 - 6.0 % QC Media Lot # [id number] Lot# Expiration Date [id number] Blood 07/05/2024 10:5 3 AM EDT Alvina Mccartney MD POINT OF CARE TEST ENTER/E DIT ORDERABLES Final Result * Hm Colonoscopy (04/04/2024) Colonoscopy Normal Normal 04/04/2024 [facility] Provider HEALTH MAINTENANCE Final Result * Hepatitis C Ab (07/29/2023 9:23 AM EDT) Hepatitis C Antibody Nonreactive Nonreactive [facility] Comment:Antibodies to HCV no t detected; does not exclude early acuteHCV infection. Blood 07/29/2023 9:23 AM EDT 07/29/2023 11:00 AM EDT Alvina Mccartney MD LAB BLOOD ORDERABLES Final Result [facility] [address] [place] [phone] * HPV mRNA E6/E7 w/Reflex to HPV Genotypes 16, 18/45 (07/26/2023 10:57 AM EDT) HPV nRNA E6/E7 Not Detected Not Detected [facility] Comment:Methodology: Transcr iption-Mediated AmplificationThis assay detects E6/E7 viral messenger RNA (mRNA) from 14high-risk HPV types (16,18,31,33,35,39,45,51,52,56,58,59,66,68).Cervical sources are required for HPV testing.If a vaginal source from a patient who has had atotal hysterectomy with removal of cervix wassubmitted, please contact the testing laboratoryfor alternative testing options.For additional information, please refer [email or web address]/faq/LNN775a5(This link if provided for information/educational purposes only.)THIS TEST WAS PERFORMED AT:[facility] [place] [phone] CALIX MD HPV mRNA E6/E7 TNP [facility] HPV 16 RNA TNP [facility] HPV 18/45 RNA TNP [facility] 07/26/2023 10:5 7 AM EDT 07/27/2023 9:00 AM EDT Alvina Mccartney MD LAB CYTOLOGY ORDERABLES Fi nal Result [facility] [address] [place] [address] [phone] * Pap Smear (07/26/2023 10:57 AM EDT) 07/26/2023 10:5 7 AM EDT 07/27/2023 9:00 AM EDT Narrative [facility] - 08/02/2023 1:35 PM EDT ----- ------- Name: Lety Bates ? Age/Sex: 53/F ? : 1970 Unit#: [id number] ?? Attend Dr: Alvina Mccartney MD ?Re07/26/23 ?Status: DEP REF ? Location: HO.HHCLNP ? Disch: ? ----- ------- SPEC : [id number] ?RECD: 07/27/23 ? STATUS: ??SOUT ? REQ NUM: [id number] ? AMANDA: 07/26/23 ? SUBM DR: Alvina [...] 66, 68) ?? HPV testing performed by [email or web address], [place], [place]. ??See reference laboratory ?? pion of the EMR for entire report. ?Clinical Information LMP: Unknown date Previous PAP test: Unknown date/findings ? Material Received ?? ThinPrep-Vaginal/Cervical ----- ------- Signed (signature on file) JUSTIN Arambula ([facility]) 08/02/23 [id number] ? ----- ------- ? END OF REPORT ? Alvina Mccartney MD LAB CYTOLOGY ORDERABLES Fi nal Result [facility] [address] [place] [address] [phone] * HM HIV 1/2 Antigen and Antibody (01/21/2021) HIV Ag/Ab Nonreactive Historical Provider HEALTH MAINTENANCE Final Result from Last 3 Months or Most Recently Relevant to Health Maintenance Insurance [address] [place] [id number] [facility] [place] [address] Advance Directives Documents on File Type Date Recorded Patient Operations Vocational Instructor Expl anation Advance Directives and Living Will 07/07/2024 1:01 PM Health Care Proxy Care Teams Amusement Park Entertainer Relationship Specialty Start Date End Date Bib, MD Alvina [address] [place] [address] PCP - General Family Medicine 11/01/18 Riky Tanner [address] 3rd [place] [address] Cardiology 10/03/24 Mariella Mcdonnell [address] [address] Sleep Medicine 10/11/24 Jina Vences MD [address] [place] [address] Endocrinology 11/05/24 Shadia Morocho PA [address] [place] [address] Orthopaedic Surgery 11/07/24 Kendall Bates MD [address] 3rd [place] [address] General Surgery 11/28/24 Sara Pritchett [address] [place] [address] Pain Medicine 01/16/25
--- OUTSIDE RECORDS SUMMARY | 2025-02-08 16:54 | XMS_ITS | Encounter Summary ---
Author Organization [employer] Address 75 [facility] 7t [place] [address] Care Team Providers Care Leveling Machine Operator Name Role Phone Alvina Mccartney MD Primary Care Provider [phone]- [phone] Riky Tanner Unavailable Mariella Mcdonnell Unavailable [phone] Jina Vences MD Unavailable Shadia Morocho Unavailable Kendall Bates MD Unavailable Sara Pritchett Unavailable Encounter Details Date Type Department Care Team (Latest Contact Info) Description 02/05/2025 Travel Social History Tobacco Use Types Packs/Day [...] Description 02/12/2025 11:00 AM EDT Office Visit [facility] [address] [place] [address] documented as of this encounter Visit Diagnoses Not on filedocumented in this encounter Additional Health Concerns Assessment Noted Time PHQ-9 Depression Total Score: 17 025 9:49 AM EST documented as of this encounter Care Teams Leveling Machine Operator Relationship Specialty Start Date End Date Alvina Mccartney MD [address] [place] [address] PCP - General Family Medicine 11/01/18 Riky Tanner [address]rd [place] [address] Cardiology 10/03/24 Mariella Mcdonnell [address] [address] Sleep Medicine 10/11/24 Jina Vences MD [address] [place] [address] Endocrinology 11/05/24 Shadia Morocho PA [address] [place] [address] Orthopaedic Surgery 11/07/24 Kendall Bates MD [address]rd [place] [address] General Surgery 11/28/24 Sara Pritchett [address] [place] [address] Pain Medicine 01/16/25 documented as of this encounter
--- OUTSIDE RECORDS SUMMARY | 2025-02-08 16:54 | XMS_ITS | Encounter Summary ---
Author Organization [employer] [facility] Address 75 [facility] 7t [place] [address] Care Team Providers Care Wet Roller Name Role Phone Alvina Mccartney MD Primary Care Provider [phone]- [phone] Riky Tanner Unavailable Mariella Mcdonenll Unavailable [phone] Jina Vences MD Unavailable Shadia Morocho Unavailable Kendall Bates MD Unavailable Sara Pritchett Unavailable Encounter Details Date Type Department Care Team (Late st Contact Info) Description 12/03/2022 Abstract [facility] [address] [place], [place] [phone] Alvina Mccartney MD [address] [place], [place] [phone] Social History Tobacco Use Types Packs/Day Years [...] Description 02/12/2025 11:00 AM EDT Office Visit [facility] [address] [facility] [place] [address] documented as of this encounter Procedures Procedure [...] on filedocumented in this encounter Care Teams Wet Roller Relationship Specialty Start Date End Date Alvina Mccartney MD [address] [facility] [place] [address] PCP - General Family Medicine 11/01/18 Riky Tanner [address] 3rd [place] [address] Cardiology 10/03/24 Mariella Mcdonnell [address] [address] Sleep Medicine 10/11/24 Jina Vences MD [address] [place] [address] Endocrinology 11/05/24 Shadia Morocho PA [address] [place] [address] Orthopaedic Surgery 11/07/24 Kendall Bates MD [address] 3rd [place] [address] General Surgery 11/28/24 Sara Pritchett [address] [place] [address] Pain Medicine 01/16/25 documented as of this encounter
--- OUTSIDE RECORDS SUMMARY | 2025-02-08 16:54 | XMS_ITS | Encounter Summary ---
Author Organization [employer] Address 75 [facility] 7t [place] [address] Care Team Providers Care Supervisor Smoke Control Name Role Phone Alvina Mccartney MD Primary Care Provider [phone] Riky Tanner Unavailable Mariella Mcdonnell Unavailable [phone] Jina Vences MD Unavailable Shadia Morocho Unavailable Kendall Bates MD Unavailable Sara Pritchett Unavailable Encounter Details Date Type Department Care Team (Late st Contact Info) Description 02/05/2025 11:00 AM EDT Office Visit [facility] [address] [place], [place] [phone] Kath Soto MD [address] [place], [place] [phone] Fibromyalgia (Primary Dx); Chronic pain of left [...] Progress Notes * Kath Soto MD - 02/05/2025 11:00 AM EDT Subjective: Lety Bates is a 54 y.o. female who presents to the office for Chronic Pain Clinic Group visits. 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 Non-pharm tx: mobility aids Related Specialists: orthopedics, pain mgmt Functional Goals: be active with her grandchildren, lose weight, and walk more (maybe also plant some plants) Other substance use: Tobacco: no Marijuana: no Alcohol: no Illicit substances: no Review of Systems Constitutional: Negative. Musculoskeletal: Positive for arthralgias, back pain and myalgias. Physical Exam Constitutional: Appearance: Normal appearance. 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 Current Assessment & Plan Pt attended and participated in chronic pain group today - good engagement with group model of care - continue to use combination of non-pharmacological modalities to address pain - followup in 1-2 weeks for planting Chronic pain of left knee Overview -seen by Ariel Morocho PA-C of [facility] 11/07/23 -MR/MR knee LT wo con 11/14/24 IMPRESSION: Moderate joint effusion. 2.0 cm probable ganglion cyst posterior to the medial tibial plateau. Moderate patellofemoral osteoarthritis. Mild osteoarthritis of the medial compartment. -referred to pain management 01/01/25 -referred to chronic pain group 01/01/25 Follow up: 1 week for Group Chronic Pain Clinic. Follow up as scheduled with PCP, sooner as needed. documented in this encounter Miscellaneous Notes * Assessment & Plan Note - Kath Soto MD - 02/05/2025 2:41 PM EDTAssociated Problem(s): Fibromyalgia Pt attended and participated in chronic pain group today - good engagement with group model of care - continue to use combination of non-pharmacological modalities to address pain - followup in 1-2 weeks for planting documented in this encounter Plan of Treatment Upcoming Encounters Date Type Department Care Team (Late st Contact Info) Description 02/12/2025 11:00 AM EDT Office Visit [facility] [address] [facility] [place] [address] documented as of this encounter Visit Diagnoses Diagnosis Fibromyalgia- Primary Unspecified myalgia and myositis Chronic pain of left knee documented in this encounter Additional Health Concerns Assessment Noted Time PHQ-9 Depression Total Score: 17 025 9:49 AM EST documented as of this encounter Care Teams Supervisor Smoke Control Relationship Specialty Start Date End Date Alvina Mccartney MD [address] [facility] [place] [address] PCP - General Family Medicine 11/01/18 Riky Tanner [address]rd [place] [address] Cardiology 10/03/24 Mariella Mcdonnell [facility] [address] [address] Sleep Medicine 10/11/24 Jina Vences MD [address] [place] [address] Endocrinology 11/05/24 Shadia Morocho PA [address] [place] [address] Orthopaedic Surgery 11/07/24 Kendall Bates MD [address]rd [place] [address] General Surgery 11/28/24 Sara Pritchett [address] [place] [address] Pain Medicine 01/16/25 documented as of this encounter
--- OUTSIDE RECORDS SUMMARY | 2025-02-08 16:54 | XMS_ITS | Encounter Summary ---
Author Organization [employer] Address 75 [facility] 7t [place] [address] Care Team Providers Care Senior Supply Chain Analyst Name Role Phone Alvina Mccartney MD Primary Care Provider [phone]- [phone] Riky Tanner Unavailable Mariella Mcdonnell Unavailable Jina Vences MD Unavailable Shadia Morocho Unavailable Kendall Bates MD Unavailable Sara Pritchett Unavailable Encounter Details Date Type Department Care Team (Late st Contact Info) Description 04/22/2023 Orders Only [facility] [address] [place], [place] [phone] Alvina Mccartney MD [address] [place], [place] [phone] Dizzy (Primary Dx) Social History Tobacco Use [...] Description 02/12/2025 11:00 AM EDT Office Visit [facility] [address] [place] [address] documented as of this encounter Visit Diagnoses Diagnosis Dizzy- Primary Dizziness and giddiness documented in this encounter Care Teams Senior Supply Chain Analyst Relationship Specialty Start Date End Date Alvina Mccartney MD [address] [place] [address] PCP - General Family Medicine 11/01/18 Riky Tanner [address] [place] [address] Cardiology 10/03/24 Mariella Mcdonnell [facility] [address] [address] Sleep Medicine 10/11/24 Jina Vences MD [address] [place] [address] Endocrinology 11/05/24 Shadia Morocho PA [address] [place] [address] Orthopaedic Surgery 11/07/24 Kendall Bates MD [address] 3rd [place] [address] General Surgery 11/28/24 Sara Pritchett [address] [place] [address] Pain Medicine 01/16/25 documented as of this encounter
--- OUTSIDE RECORDS SUMMARY | 2025-02-08 16:54 | XMS_ITS | Encounter Summary ---
Author Organization [facility] Address 75 [facility] 7t [place] [address] Care Team Providers Care Patrol Lady Name Role Phone Alvina Mccartney MD Primary Care Provider [phone]- [phone] Riky Tanner Unavailable Mariella Mcdonnell Unavailable Jina Vences MD Unavailable Shadia Morocho Unavailable Kendall Bates MD Unavailable Sara Pritchett Unavailable Reason for Visit * Reason Comments Med Refill Encounter Details Date Type Department Care Team (Late st Contact Info) Description 12/01/2024 Refill [facility] [address] [place], [place] [phone] Alvina Mccartney MD [address] [place], [place] [phone] Pain Social History Tobacco Use Types Packs/Day [...] Description 02/12/2025 11:00 AM EDT Office Visit [facility] [address] [place] [address] documented as of this encounter Visit Diagnoses Diagnosis Pain Generalized pain documented in this encounter Additional Health Concerns Assessment Noted Time PHQ-9 Depression Total Score: 8 07/26/20 23 10:55 AM EDT documented as of this encounter Care Teams Patrol Lady Relationship Specialty Start Date End Date Alvina Mccartney MD [address] [place] [address] PCP - General Family Medicine 11/01/18 Riky Tanner 11 [facility] 3rd [place] [address] Cardiology 10/03/24 Mariella Mcdonnell [facility] [address] [address] Sleep Medicine 10/11/24 Jina Vences MD [address] [place] [address] Endocrinology 11/05/24 Shadia Morocho PA [address] [place] [address] Orthopaedic Surgery 11/07/24 Kendall Bates MD [address] 3rd [place] [address] General Surgery 11/28/24 Sara Pritchett [address] [place] [address] Pain Medicine 01/16/25 documented as of this encounter
--- OUTSIDE RECORDS SUMMARY | 2025-02-08 16:54 | XMS_ITS | Encounter Summary ---
Author Organization [employer] Address 75 [facility] 7t [place] [address] Care Team Providers Care Gas Processing Plant Operator Name Role Phone Alvina Mccartney MD Primary Care Provider [phone]- [phone] Riky Tanner Unavailable Mariella Mcdonnell Unavailable [phone] Jina Vences MD Unavailable Shadia Morocho Unavailable Kendall Bates MD Unavailable [phone] Sara Pritchett Unavailable Encounter Details Date Type Department Care Team (Latest Contact Info) Description 02/06/2025 Travel Social History Tobacco Use Types Packs/Day [...] Description 02/12/2025 11:00 AM EDT Office Visit [facility] [address] [place] [address] documented as of this encounter Visit Diagnoses Not on filedocumented in this encounter Additional Health Concerns Assessment Noted Time PHQ-9 Depression Total Score: 17 025 9:49 AM EST documented as of this encounter Care Teams Gas Processing Plant Operator Relationship Specialty Start Date End Date Alvina Mccartney MD [address] [place] [address] PCP - General Family Medicine 11/01/18 Riky Tanner [address]rd [place] [address] Cardiology 10/03/24 Mariella Mcdonnell [address] [address] Sleep Medicine 10/11/24 Jina Vences MD [address] [place] [address] Endocrinology 11/05/24 Shadia Morocho PA [address] [place] [address] Orthopaedic Surgery 11/07/24 Kendall Bates MD [address] 3rd [place] [address] General Surgery 11/28/24 Sara Pritchett [address] [place] [address] Pain Medicine 01/16/25 documented as of this encounter
--- OUTSIDE RECORDS SUMMARY | 2025-02-08 16:55 | XMS_ITS | Encounter Summary ---
Author Organization [employer] Address 75 [facility] 7t [place] [address] Care Team Providers Care Auto Brake Mechanic Name Role Phone Alvina Mccartney MD Primary Care Provider [phone]- [phone] Riky Tanner Unavailable Mariella Mcdonnell Unavailable Jina Vences MD Unavailable Shadia Morocho Unavailable Kendall Bates MD Unavailable Sara Pritchett Unavailable Reason for Visit * Reason Onset Date Comments Med Refill 02/08/2025 Encounter Details Date Type Department Care Team (Late st Contact Info) Description 02/08/2025 Refill [facility] [address] [place], [place] [phone] Alvina Mccartney MD [address] [place] [address] Social History Tobacco Use Types Packs/Day Years [...] encounter Miscellaneous Notes * Telephone Encounter - [place] LPN - 02/08/2025 1:14 PM EDT Per [facility]; gabapentin 400mg dose increased by pain mgmt and per Shreyas's office this was a one time fill and PCP should take over. Please advise. SLEEP MANAGER checked on 02/08/25 gabapentin 400mg last filled on 01/18/25 #90 (30 day supply) by Sara Pritchett. Last seen 01/01/25. documented in this encounter Plan of Treatment Upcoming Encounters Date Type Department Care Team ([facility] st Contact Info) Description 02/12/2025 11:00 AM EDT Office Visit [facility] [address] [place] [address] documented as of this encounter Visit Diagnoses Not on filedocumented in this encounter Additional Health Concerns Assessment Noted Time PHQ-9 Depression Total Score: 17 025 9:49 AM EST documented as of this encounter Care Teams Auto Brake Mechanic Relationship Specialty Start Date End Date Alvina Mccartney MD [address] [place] [address] PCP - General Family Medicine 11/01/18 Riky Tanner [address] [place] [address] Cardiology 10/03/24 Mariella Mcdonnell [address] [phone] Sleep Medicine 10/11/24 J[place] [address] Endocrinology 11/05/24 Shadia Morocho PA [address] [place] [address] Orthopaedic Surgery 11/07/24 Kendall Bates MD 11 [facility] 3rd [place] [address] General Surgery 11/28/24 Sara Pritchett [address] [place] [address] Pain Medicine 01/16/25 documented as of this encounter
== END 2025-02-08 14:42 | disposition home or self-care (01) ==
LOC: HO.PMC 14:09
PROVIDERS: PCP Family Medicine; Visit Provider Nurse Practitioner Family
DX: M25.562 Pain in left knee (principal); M17.0 Bilateral primary osteoarthritis of knee
CPT/HCPCS: 99213; G2211

== ENCOUNTER → 2025-02-08 14:08 | Outpatient (BNVA) | payer MEDICARE, SELFPAY | PROVIDERS: PCP Family Medicine; Visit Provider Nurse Practitioner Family | DX: M17.0 Bilateral primary osteoarthritis of knee (principal) | CPT/HCPCS: 99212 ==

== ENCOUNTER 2025-04-05 06:12 | Outpatient (REF) | payer MEDICARE, SELFPAY | END 2025-04-05 06:13 | disposition home or self-care (01) | LOC: CF 06:12 | PROVIDERS: Visit Provider Internal Medicine | DX: M23.92 Unspecified internal derangement of left knee (principal); M25.562 Pain in left knee | CPT/HCPCS: 64555; C1778; J2003 ==

== ENCOUNTER 2025-04-05 12:45 | Outpatient (AMB) | payer MEDICARE, SELFPAY ==
[2025-04-05 12:54] VITALS: BP 146/89; PULSE 79; RESP 16; O2SAT 98
--- NOTE | 2025-04-05 12:54 | A.OFFVIS_ITS ---
Vital Signs 04/05/25 12:54 04/05/25 13:22 BP 146/89 H 118/73 Blood Pressure Location Lt brachial Rt brachial Position Sitting Sitting Respiration 16 16 Pulse 79 70 Pulse Source Pulse Oximeter Pulse Oximeter Pulse Oximetry (%) 98 98 Oxygen Delivery Method Room Air Room Air Intake Visit Reasons: Left saphenous Sprint Accident Examiner Required: No Allergies No Known Allergies Allergy (Verified 04/12/25 10:52) Medication List - Last Reconciled 04/05/25 by Roma Perkins LPN amlodipine 10 mg PO QAM blood pressure test kit-large As directed buspirone 30 mg PO BID celecoxib (Celebrex) 200 mg PO BID 30 days cetirizine 10 mg PO QAM cholecalciferol (vitamin D3) (Vitamin D3) 25 mcg PO QAM dexamethasone 1 mg PO DAILY duloxetine 60 mg PO BEDTIME duloxetine 30 mg PO QAM esomeprazole magnesium 40 mg PO DAILY fluticasone propion-salmeterol 500-50 mcg/dose 1 ea inhalation BID fluticasone propionate 50 mcg/actuation 1 spray intranasal DAILY gabapentin 400 mg PO TID 30 days hydrochlorothiazide 25 mg PO DAILY hydroxyzine HCl 10 mg PO TID ibuprofen 600 mg PO Q6H PRN lidocaine 5% leave on most painful area for up to 12 hrs topical 30 days lisinopril 20 mg PO QAM 90 days lorazepam 1 mg PO ONCE PRN 1 day mesalamine ER (Apriso) 1.5 grams (4 x 0.375 gram) PO QAM ondansetron HCl (Zofran) 4 mg PO Q8H PRN polyethylene glycol 3350 (ClearLax) 17 grams PO BID primidone 50 mg PO BEDTIME propranolol 80 mg PO DAILY zolpidem 10 mg PO BEDTIME HPI HPI Left saphenous Sprint: Details: Patient presents for scheduled procedure. Denies any recent cough, cold, infection, fever or other significant changes in medical history since last office visit. [facility] Medical History Adrenal incidentaloma Back pain Pre-diabetes GERD (gastroesophageal reflux disease) Fibromyalgia Bipolar disorder Insomnia Anxiety Depression Syncope Mild intermittent asthma NAFLD (nonalcoholic fatty liver disease) Vertigo Sleep apnea IBS (irritable bowel syndrome) Arthritis HTN (hypertension) Surgical History History of umbilical hernia repair (~11/14/24) Hx of colonoscopy History of esophagogastroduodenoscopy (EGD) History of hysterectomy Family History Father Diabetes Arthritis Hypertension Hypercholesteremia Cancer Mother Diabetes Hypertension Arthritis Cancer Son Asthma Son Asthma Heart problem Social History Are you a primary youth care specialist to a significant other at home: No Do you presently have visiting nurse or other home services: No Alcohol intake: never Patient Tobacco Use Status: Never used Tobacco Current occupational status: retired Physical Exam Vital Signs: Last Vital Signs Pulse 70 04/05/25 13:22 Resp 16 04/05/25 13:22 BP 118/73 04/05/25 13:22 Pulse Ox 98 04/05/25 13:22 Oxygen Delivery Method Room Air 04/05/25 13:22 Office Procedures Details: Peripheral Nerve Stimulation Temporary Lead Placement, Ultrasound-Guided, Saphenous Nerve, Left ? After the risks, benefits and alternatives were discussed with the patient and informed consent was obtained, patient was placed in the supine position and padded to foster comfort. Appropriate skin and bony landmarks were identified, and pertinent vascular structures were located. The skin overlying the needle entry site was prepped and draped in sterile fashion. Ultrasound was used to identify the femoral artery, the femoral vein and the saphenous nerve. After identifying and marking the intended target along the course of the saphenous nerve, the skin around the planned entry point and the subcutaneous tissues were injected with local anesthetic. An introducer needle and stimulating probe were assembled, inserted and advanced along the intended course of the saphenous nerve, taking care to maintain the proper depth of insertion as the introducer was advanced under ultrasound guidance. The introducer needle was delivered to a location in proximity to the nerve taking care not to puncture the femoral artery or the vein. Multiple stimulation parameters were used to deliver stimulation to the saphenous nerve in concert with stimulating at multiple positions around the nerve. Nerve target acquisition was confirmed noting generation of sensory and mild motor effects (paresthesia, muscle tension, etc) in the medial knee, leg and ankle; c orresponding to the distribution of the saphenous nerve. Various electrical parameter combinations were tested, and the lead location was adjusted (physically relocated under ultrasound guidance) until the patient indicated medial knee paresthesia and tension overlapping the distribution of the patient?s typical region of pain. The stimulating probe was removed from the introducer and a percutaneous lead was guided through the needle and delivered to a location in similar proximity to the nerve. Final location was verified with electrical stimulation and documented. The introducer needle was removed, and the exposed end of the percutaneous lead was attached to an external stimulator unit. Various electrical parameter combinations were again tested until the patient indicated paresthesia and muscle tension overlapping the distribution of the patient?s typical region of pain. After confirming that lead impedance was in the normal range, the external unit was detached, the needle was removed, and the lead was anchored at the skin. The lead was threaded into the connector block and electrical continuity and desired patient response was confirmed. The connector block was attached to the external stimulator unit. The site was covered with a sterile occlusive dressing. A final ultrasound image was taken to document final placement. The patient was observed for stability of vital signs and comfort. Sprint PNS Device: Sprint PNS Device [id number] Percutaneous Peripheral Neuroelectrode Procedure: 52873 - Percutaneous Peripheral Neuroelectrode Procedure code (CPT) selection complete Office Meds lidocaine HCl 10 mg/mL (1 %) injection solution Performing Provider: Ainsley Peterson APRN, CNP Performing Location: [facility] Administered by: Lew Mcclain MD on 04/24/25 08:55 Dose Route Admin Location Dispensed Lot Number Expiration Date NDC Blanket Inspector 5 mL subcut 5 mL Total Dispensed Waste 5 mL 0 % Assessment & Plan Assessment & Plan (1) Left knee pain: Code(s): M25.562 - Pain in left knee Category: Medical (2) Osteoarthritis of knees, bilateral: Code(s): M17.0 - Bilateral primary osteoarthritis of knee Category: Medical Qualifiers: Osteoarthritis type: primary Qualified Code(s): M17.0 - Bilateral primary osteoarthritis of knee Plan Patient is status post left saphenous PNS placement. Patient tolerated procedure well and was discharged home in stable condition with discharge instructions. All questions were answered. We will follow-up via telephone or in clinic to assess response to therapy. A follow-up appointment was made during today's visit. Orders: Orders FL guidance in treatment room 04/05/25 M23.92 - Unspecified internal lester angement of left knee AMB Sprint PNS 04/05/25 M25.562 - Pain in left knee Medications: New lidocaine HCl 5 mL subcut ONCE 5 mL 0RF M25.562 - Pain in left knee Coding Level of Care Code Procedure Only Diagnoses Left knee pain M25.562 Primary osteoarthritis of both knees M17.0 Osteoarthritis type: primary CPT Codes Sprint PNS - Sprint PNS Device: Sprint PNS Device ([id number]) Sprint PNS - SPRINT: 41165 - Percutaneous Peripheral Neuroelectrode ([id number]) Implantable Device Implantable Device Implantable Devices Qty Blanket Inspector Implant Date Expiration Date Analgesic PENS system 1 SPR [employer] 04/05/[address] SMALL 1 11/14/24 04/28/26
[2025-04-05 13:22] VITALS: BP 118/73; PULSE 70; RESP 16; O2SAT 98
--- OUTSIDE RECORDS SUMMARY | 2025-04-05 14:49 | XMS_ITS | Encounter Summary ---
Author Organization [employer] Address [address] [facility] [address] [place] [address] Care Team Providers Care Private Branch Exchange Installer Name Role Phone Alvina Mccartney MD Primary Care Provider [phone] Riky Tanner Unavailable Mariella Mcdonnell Unavailable [phone] Jina Vences MD Unavailable Shadia Morocho Unavailable Kendall Bates MD Unavailable [phone] Sara Pritchett Unavailable Encounter Details Date Type Department Care Team (Late st Contact Info) Description 04/14/2024 Abstract [facility] [address] [place], [place] [id number] Hayley Briscoe [place] Social History Tobacco Use [...] Care Team (Late st Contact Info) Description 04/09/2025 11:00 AM EDT Office Visit [facility] [address] [place] [address] documented as of this encounter Procedures Procedure [...] documented as of this encounter Care Teams Private Branch Exchange Installer Relationship Specialty Start Date End Date Alvina Mccartney MD [address] [place] [address] PCP - General Family Medicine 11/01/18 Riky Tanner [address] [place] [address] Cardiology 10/03/24 Mariella Mcdonnell [address] [id number] Sleep Medicine 10/11/24 Jina Vences MD [address] [place] [address] Endocrinology 11/05/24 Shadia Morocho PA [address] [place] [address] Orthopaedic Surgery 11/07/24 Kendall Bates MD [address] [place] [address] General Surgery 11/28/24 Sara Pritchett [address] [place] [address] Pain Medicine 01/16/25 documented as of this encounter
== END 2025-04-05 13:31 | disposition home or self-care (01) ==
LOC: HO.PMCPRC 12:45
PROVIDERS: PCP Family Medicine; Visit Provider Internal Medicine
DX: M25.562 Pain in left knee (principal); M17.0 Bilateral primary osteoarthritis of knee
CPT/HCPCS: 64555

== ENCOUNTER 2025-04-11 16:23 | Emergency (ER) | payer MEDICARE, SELFPAY ==
--- NOTE | ~2025-04-11 | CT_ITS ---
CLINICAL HISTORY: headache CT of the head without contrast. No comparison. Findings: No acute hemorrhage or infarct is seen. No masses are identified and there is no hydrocephalus. There is no mass-effect. Impression: No acute intracranial abnormality is identified. This document has been electronically signed by: Romie Montelongo MD on 04/11/2025 18:39:43
--- NOTE | ~2025-04-11 | XR_ITS ---
CLINICAL HISTORY: Coughinng. Pneumonia? Single view of the chest. Findings: Heart size is upper limits of normal. There is no consolidation. No pleural effusions are seen. Impression: No consolidation. This document has been electronically signed by: Romie Montelongo MD on 04/11/2025 18:12:09
[2025-04-11 17:14] VITALS: BP 147/74; PULSE 77; RESP 18; TEMP 37; O2SAT 98; BMI 31.4
--- NOTE | 2025-04-11 17:32 | ED_ITS ---
HPI - General Adult General Chief complaint: General Medical Stated complaint: Dizziness Time Seen by Provider: 04/11/25 22:38 Source: patient Mode of arrival: ambulatory History of Present Illness ED Provider: HPI narrative: Patient's history of fibromyalgia depression anxiety chronic left knee pain status post spring PNS systems on 04/05 been having subjective fever headache dizziness for last few days patient is afebrile on arrival does have history of migraine headache light sensitivity and nauseated Related Data Home Medications ?Medication ?Instructions ?Recorded ?Confirmed amlodipine 10 mg tablet 10 mg PO QAM 04/03/22 04/05/25 blood pressure test kit-large #1 ea 04/03/22 04/05/25 buspirone 15 mg tablet 30 mg PO BID 04/03/22 04/05/25 cholecalciferol (vitamin D3) 25 25 mcg PO QAM 04/03/22 04/05/25 mcg (1,000 unit) capsule (Vitamin D3) zolpidem 10 mg tablet 10 mg PO BEDTIME 04/03/22 04/05/25 fluticasone 500 mcg-salmeterol 50 1 ea inhalation BID 04/09/23 04/05/25 mcg/dose blistr powdr for inhalation cetirizine 10 mg tablet 10 mg PO QAM 05/26/24 04/05/25 fluticasone propionate 50 1 spray intranasal DAILY 05/26/24 04/05/25 mcg/actuation nasal spray,suspension primidone 50 mg tablet 50 mg PO BEDTIME 05/26/24 04/05/25 propranolol 80 mg tablet 80 mg PO DAILY 05/26/24 04/05/25 duloxetine 60 mg capsule,delayed 60 mg PO BEDTIME 09/04/24 04/05/25 release duloxetine 30 mg capsule,delayed 30 mg PO QAM 10/02/24 04/05/25 release hydrochlorothiazide 25 mg tablet 25 mg PO DAILY 11/03/24 04/05/25 hydroxyzine HCl 10 mg tablet 10 mg PO TID 02/08/25 04/05/25 Previous Rx's ?Medication ?Instructions ?Recorded ondansetron HCl 4 mg tablet 4 mg PO Q8H PRN nausea and 09/24/21 (Zofran) vomiting #14 tabs lisinopril 20 mg tablet 20 mg PO QAM 90 days #90 tabs 06/28/24 esomeprazole magnesium 40 mg 40 mg PO DAILY #90 caps 09/04/24 capsule,delayed release dexamethasone 1 mg tablet 1 mg PO DAILY #1 tab 11/03/24 ibuprofen 600 mg tablet 600 mg PO Q6H PRN pain #30 tabs 11/14/24 celecoxib 200 mg capsule (Celebrex) 200 mg PO BID 30 days #60 caps 12/14/24 polyethylene glycol 3350 17 17 g PO BID #510 grams 01/09/25 gram/dose oral powder (ClearLax) gabapentin 400 mg capsule 400 mg PO TID pain 30 days #90 caps 01/16/25 lidocaine 5 % topical patch See Rx Instructions topical 01/16/25 .COMPLEX pain 30 days #30 ea lorazepam 1 mg tablet 1 mg PO ONCE PRN anxiety 1 day #1 01/29/25 tab mesalamine 0.375 gram 1.5 g (4 x 0.375 gram) PO QAM #120 03/29/25 capsule,extended release 24 hr caps (Apriso) [id number]-latgqzgepucau-lnwjysfy 1 tab PO Q6H PRN haeadace #20 tabs 04/12/25 50 mg-325 mg-40 mg tablet ondansetron 4 mg disintegrating 4 mg PO Q6-8H PRN nausea and 04/12/25 tablet vomiting #7 tabs sumatriptan succinate 50 mg tablet 50 mg PO Q2H PRN migraine headache 04/12/25 (Imitrex) #10 tabs Allergies Allergy/AdvReac Type Severity Reaction Status Date / Time No Known Allergies Allergy Verified 04/12/25 10:52 Review of Systems 2 Review of Systems: Yes all other systems are reviewed and are negative [facility] Past Medical History Medical History Adrenal incidentaloma Back pain Pre-diabetes GERD (gastroesophageal reflux disease) Fibromyalgia Bipolar disorder Insomnia Anxiety Depression Syncope Mild intermittent asthma NAFLD (nonalcoholic fatty liver disease) Vertigo Sleep apnea IBS (irritable bowel syndrome) Arthritis HTN (hypertension) Surgical History History of umbilical hernia repair (~11/14/24) Hx of colonoscopy History of esophagogastroduodenoscopy (EGD) History of hysterectomy Family History Family History Father Diabetes Arthritis Hypertension Hypercholesteremia Cancer Mother Diabetes Hypertension Arthritis Cancer Son Asthma Son Asthma Heart problem Social History Social History Are you a primary child day care provider to a significant other at home: No Do you presently have visiting nurse or other home services: No Alcohol intake: never Patient Tobacco Use Status: Never used Tobacco Current occupational status: retired Physical Exam ED Vital Signs: Vital Signs - 24 hr 04/12/25 00:19 Temperature 98.8 F Pulse Rate 64 Respiratory Rate 16 Blood Pressure 153/83 H Pulse Oximetry 64 L Oxygen Delivery Method Room Air BMI result Body Mass Index 31.4 Appearance: Alert. Oriented X3. No acute distress. Light sensitivity Eyes: PERRLA, No Nystagmus ENT: Pharynx normal. Oral Mucosa moist Neck: Normal inspection. Neck supple. CVS: Normal heart rate and rhythm. Pulses normal. Respiratory: No respiratory distress. Equal air entry bilateral, no wheezing/rales/rhonchi Abdomen: Soft and nontender. Bowel sounds are present, no mass palpable, no CVA tenderness Skin: Skin warm and dry. Normal skin color. Normal skin turgor. Extremities: No lower extremity edema. No calf tenderness site of PNS system intact with signs of infection psych: Feel depressed denies any SI or HI Neuro: Oriented X 3. No motor deficit. No sensory deficit.No cerebellar signs , cranial nerves II-XII intact Course Course Course Narrative: RME: 54-year-old female presents to the ED for fever headache dizziness after insertion of PNS system in her left leg last week. NIH score is 0- for any neuro deficits. Labs ordered Medications Administered Discontinued Medications Generic Name Dose Route Start Last Admin Trade Name Freq PRN Reason Stop Dose Admin Lorazepam 2 mg 04/11/25 22:55 04/11/25 23:10 Lorazepam 1 Mg Tablet PO 04/11/25 22:56 2 mg ONCE ONE Administration Ondansetron HCl 4 mg 04/11/25 22:58 04/11/25 23:10 Ondansetron Odt 4 Mg Tab.Rapdis TRANSLINGU 04/11/25 22:59 4 mg ONCE ONE Administration Sumatriptan Succinate 6 mg 04/11/25 22:55 04/11/25 23:09 Sumatriptan Succinate 6 Mg/0.5 Ml Vial SUBCUT 04/11/25 22:56 6 mg ONCE ONE Administration Medical Decision Making Medical Decision Making [facility] Narrative: Patient's depression anxiety and migraine headache improved after Imitrex headaches almost gone feeling much better will discharge patient home on Imitrex and Fioricet advised to continue her medication for depression and follow with PCP Lab Data [facility] Lab Attestation statement: I reviewed the patient's lab results. 04/11/25 17:46 04/11/25 17:46 Labs: Lab Results 04/11/25 Range/Units 17:46 WBC 8.5 (4.8-10.8) X10*3/uL RBC 3.92 L (4.20-5.50) X10*6/uL Hgb 12.5 (12.0-16.0) g/dl Hct 37.0 (37.0-47.0) % MCV 94.4 (80.0-98.0) fL MCH 31.9 (27.0-33.0) pg MCHC 33.8 (31.0-35.0) g/dl RDW 11.9 (11.0-16.0) % Plt Count 314 (160-400) X10*3/uL MPV 10.2 (9.4-12.3) fL Immature Gran % (Auto) 0.5 H (0.0-0.4) % Neut % (Auto) 53.4 (45-73) % Lymph % (Auto) 36.6 (20-40) % [place] % (Auto) 7.6 (2-11) % Eos % (Auto) 1.4 (0-4) % Baso % (Auto) 0.5 (0-2) % Lymph # (Auto) 3.1 (1.2-4.9) X10*3/uL [place] # (Auto) 0.6 (0.1-1.2) X10*3/uL Eos # (Auto) 0.1 (0.0-0.4) X10*3/uL Baso # (Auto) 0.0 (0.0-0.2) X10*3/uL Abs Immat Gran (auto) 0.04 H (0.00-0.03) X10*3/uL Absolute Neuts (auto) 4.5 (2.0-8.3) x10*3/uL Absolute Nucleated RBC 0.000 (0.0-0.012) X10*3/uL Nucleated RBC % (auto) 0.0 (0.0-0.2) /100WBC Sodium 140 (135-145) mmol/L Potassium 4.2 (3.3-5.1) mmol/L Chloride 107 (96-108) mmol/L Carbon Dioxide 29 (22-29) mmol/L Anion Gap 8 L (12-20) BUN 14 (9-16) mg/dL Creatinine 0.67 (0.5-1.4) mg/dL Estim Creat Clear Calc 98.5 Estimated GFR > 60 Random Glucose 95 (60-115) mg/dL Calcium 9.5 (8.4-10.2) mg/dL Total Bilirubin 0.2 (0.0-1.0) mg/dL AST 25 (5-31) U/L ALT 31 (0-31) U/L Alkaline Phosphatase 88 (39-117) U/L Total Protein 7.6 (6.5-8.0) g/dL Albumin 4.2 (3.5-5.0) g/dL Influenza Type A (PCR) NEGATIVE (Negative) Influenza Type B (PCR) NEGATIVE (Negative) RSV RNA Qual (PCR) NEGATIVE (Negative) SARS-CoV-2 RNA (RT-PCR) NEGATIVE (Negative) Independent Interpretation I performed an independent interpretation of an: CT Scan Radiology Impression Discussion of test interpretation with radiology: I have reviewed the radiologist's reading. Discharge Plan Discharge Clinical Impression: Headache, migraine Patient Disposition: Home, Self-Care Instructions: Migraine Headache (ED) Additional Instructions: Take medication for migraine headache as prescribed Follow with your PCP Prescriptions: New sumatriptan succinate [Imitrex] 50 mg tablet 50 mg PO Q2H PRN (Reason: migraine headache) Qty: 10 0RF Rx Instructions: do not exceed 2 doses per 24 hrs odereskhjb-fcnljnqqpsoug-rwum 50-325-40 mg tablet 1 tab PO Q6H PRN (Reason: haeadace) Qty: 20 0RF ondansetron 4 mg tablet,disintegrating 4 mg PO Q6-8H PRN (Reason: nausea and vomiting) Qty: 7 0RF No Action lisinopril 20 mg tablet 20 mg PO QAM 90 Days Qty: 90 3RF polyethylene glycol 3350 [ClearLax] 17 gram/dose powder 17 g PO BID Qty: 510 2RF lorazepam 1 mg tablet 1 mg PO ONCE PRN (Reason: anxiety) 1 Days Qty: 1 0RF Rx Instructions: Take 30 min prior to procedure on 02/01/25. Do not drive or operate any machinery for 24 hours after taking this medication. mesalamine [Apriso] 0.375 gram capsule,extended release 24hr 1.5 g PO QAM Qty: 120 2RF ondansetron HCl [Zofran] 4 mg tablet 4 mg PO Q8H PRN (Reason: nausea and vomiting) Qty: 14 0RF ibuprofen 600 mg tablet 600 mg PO Q6H PRN (Reason: pain) Qty: 30 0RF cholecalciferol (vitamin D3) [Vitamin D3] 25 mcg (1,000 unit) capsule 25 mcg PO QAM buspirone 15 mg tablet 30 mg PO BID zolpidem 10 mg tablet 10 mg PO BEDTIME amlodipine 10 mg tablet 10 mg PO QAM (DME) blood pressure test kit-large Kit See Rx Instructions .ROUTE DAILY Qty: 1 Rx Instructions: As directed fluticasone propionate 50 mcg/actuation spray,suspension 1 spray intranasal DAILY cetirizine 10 mg tablet 10 mg PO QAM propranolol 80 mg tablet 80 mg PO DAILY primidone 50 mg tablet 50 mg PO BEDTIME hydrochlorothiazide 25 mg tablet 25 mg PO DAILY dexamethasone 1 mg tablet 1 mg PO DAILY Qty: 1 0RF Rx Instructions: Take 1 pill at 11 pm at night and do blood work at 8 AM next day celecoxib [Celebrex] 200 mg capsule 200 mg PO BID 30 Days Qty: 60 3RF gabapentin 400 mg capsule 400 mg PO TID 30 Days Qty: 90 0RF lidocaine 5 % adhesive patch,medicated See Rx Instructions topical .COMPLEX 30 Days Qty: 30 1RF Rx Instructions: leave on most painful area for up to 12 hrs topical hydroxyzine HCl 10 mg tablet 10 mg PO TID fluticasone propion-salmeterol 500-50 mcg/dose blister with device 1 ea inhalation BID duloxetine 60 mg capsule,delayed release(DR/EC) 60 mg PO BEDTIME esomeprazole magnesium 40 mg capsule,delayed release(DR/EC) 40 mg PO DAILY Qty: 90 1RF duloxetine 30 mg capsule,delayed release(DR/EC) 30 mg PO QAM lidocaine HCl 10 mg/mL (1 %) solution 5 ml subcut ONCE Qty: 5 0RF Interventions: ED Discharge Assessment Last Done: 04/12/25 00:19 Discharge Date/Time: 04/12/25 00:20 Print Language: Grenadian
[2025-04-11 17:49] LABS: MANUAL DIFF FLAG NO
[2025-04-11 18:04] LABS: Alanine Aminotransferase 31 U/L (0-31); Albumin Level 4.2 g/dL (3.5-5.0); Alkaline Phosphatase 88 U/L (39-117); Anion Gap 8 (12-20); Aspartate Amino Transferase 25 U/L (5-31); Bilirubin Total 0.2 mg/dL (0.0-1.0); Blood Urea Nitrogen 14 mg/dL (9-16); Calcium 9.5 mg/dL (8.4-10.2); Carbon Dioxide 29 mmol/L (22-29); Chloride 107 mmol/L (96-108); Creatinine Clr Calc Pharmacy 98.5; Estimated Glomerular Filt Rate > 60; Glucose Random 95 mg/dL (60-115); Potassium 4.2 mmol/L (3.3-5.1); Sodium 140 mmol/L (135-145); Total Protein 7.6 g/dL (6.5-8.0)
[2025-04-11 18:07] LABS: Basophils Percent Auto 0.5 % (0-2); Eosinophils Absolute Auto 0.1 X10*3/uL (0.0-0.4); Eosinophils Percent Auto 1.4 % (0-4); Hemoglobin 12.5 g/dl (12.0-16.0); Imm Gran Abs Auto 0.04 X10*3/uL (0.00-0.03); Imm Gran Pct Auto 0.5 % (0.0-0.4); Lymphocytes Absolute Auto 3.1 X10*3/uL (1.2-4.9); Lymphocytes Percent Auto 36.6 % (20-40); Mean Corpuscular HGB Conc 33.8 g/dl (31.0-35.0); Mean Corpuscular Hemoglobin 31.9 pg (27.0-33.0); Mean Corpuscular Volume 94.4 fL (80.0-98.0); Mean Platelet Volume 10.2 fL (9.4-12.3); Monocytes Absolute Auto 0.6 X10*3/uL (0.1-1.2); Monocytes Percent Auto 7.6 % (2-11); Neutrophils Absolute Auto 4.5 x10*3/uL (2.0-8.3); Neutrophils Percent Auto 53.4 % (45-73); Platelet Count 314 X10*3/uL (160-400); Red Blood Count 3.92 X10*6/uL (4.20-5.50); Red Cell Distribution Width 11.9 % (11.0-16.0); White Blood Count 8.5 X10*3/uL (4.8-10.8)
[2025-04-11 18:27] LABS: Influenza A PCR NEGATIVE (Negative); Influenza B PCR NEGATIVE (Negative); Resp Syncy Virus RNA Qual PCR NEGATIVE (Negative); SARS COV2 PCR INHOUSE NEGATIVE (Negative)
[2025-04-11] MEDS: SUMAtriptan succinate 6 MG/0.5 ML VIAL SUBCUT (23:09)
[2025-04-11] MEDS: Ondansetron ODT 4 MG TAB.RAPDIS TRANSLINGU (23:10)
[2025-04-11] MEDS: LORazepam 1 MG TABLET 2 MG PO (23:10)
[2025-04-12 00:19] VITALS: BP 153/83; PULSE 64; RESP 16; TEMP 37.1; O2SAT 64
== END 2025-04-12 00:20 | disposition home or self-care (01) ==
PROVIDERS: Physician Assistant; Emergency Provider Internal Medicine; PCP Family Medicine
DX: G43.909 Migraine, unspecified, not intractable, without status migrainosus (principal); R29.700 NIHSS score 0; Z03.818 Encounter for observation for suspected exposure to other biological agents ruled out; E11.9 Type 2 diabetes mellitus without complications; I10 Essential (primary) hypertension; J45.909 Unspecified asthma, uncomplicated; Z79.899 Other long term (current) drug therapy
CPT/HCPCS: 0241U; 70450; 71045; 80053; 85025; 96372; 99284; J3030

== ENCOUNTER → 2025-04-11 17:33 | Outpatient (BNV) | payer MEDICARE, SELFPAY | PROVIDERS: PCP Family Medicine; Visit Provider Radiology Diagnostic Radiology | DX: R51.9 Headache, unspecified (principal); R05.9 Cough, unspecified | CPT/HCPCS: 70450; 71045 ==

== ENCOUNTER 2025-04-12 10:46 | Outpatient (AMB) | payer MEDICARE, SELFPAY ==
--- NOTE | 2025-04-12 10:49 | MHC.OFFVIS ---
Vital Signs 04/12/25 10:52 Height 5 ft 3 in Weight 177 lb BMI 31.4 BP 143/86 H Blood Pressure Location Lt brachial Position Sitting Pulse 77 Pulse Source Pulse Oximeter Pulse Oximetry (%) 99 Oxygen Delivery Method Room Air Intake Visit Reasons: s/p Left saphenous Sprint Intake Note: Pain today 11/10 Fence Maker Required: No Accompanied by: Self / Same As Patient Allergies No Known Allergies Allergy (Verified 04/12/25 10:52) HPI Comments Details: Patient presents today 1 week status post left saphenous nerve Sprint placement by Dr. Mcclain on 04/05/2025. She reports 90-100% ongoing pain relief since procedure with significant improvement in her mobility, daily activities, climbing stairs and better sleep. Her stimulation settings range 65-70 with positive paresthesia to the left knee and thigh. Denies any untoward affects with Sprint therapy. The dressing was removed today. Lead insertion site is clean, dry, intact, no redness, no swelling, no pathological discharge. Area was cleansed with Chloraprep, applied Bacitracin and covered with Sprint Tegaderm film and gauze dressing. Patient was instructed with device care and dressing changes at home. Denies any recent cough, cold, infection, fever or any significant changes in medical history since last office visit, except acute migraine headache last night which prompted her to go to [facility] ER for treatment. She was provided Fioricet, Zofran and Imitrex with good relief except mild residual photosensitivity today. Past Procedures: 04/05/25: Left Saphenous nerve Sprint [id number]% ongoing pain relief. 02/01/25: Left Diagnostic Saphenous Nerve Block-90% for >6 hours PRIOR: The patient is a 54-year-old female presenting with pain management and evaluation for peripheral nerve stimulation concerning her chronic left knee pain. Recently, she underwent a diagnostic saphenous nerve block with Dr. Mcclain, which provided at least 6 hours of pain relief before the discomfort returned, demonstrating potential suitability for a more prolonged nerve stimulation treatment. Her history reveals that cortisone injections, previously administered for pain relief, failed to offer long-term effects, barely lasting a month. This inadequacy has prompted her to seek further treatment with our office. She expresses that her pain impedes routine activities like prolonged standing, bending, kneeling, walking and stair climbing, which she finds increasingly difficult. Attempts at physical therapy have been hampered by continuous pain, reducing its potential effectiveness. Furthermore, the patient manages her at-home pain with limb elevation and oral medication including Gabapentin, Tylenol, and ice therapy. She sought lidocaine patches to augment pain control; however, insurance constraints have restricted this option. Denies any recent cough, cold, infection, fever or any other significant changes in medical history since last office visit. Past Procedures: 02/01/25: Left Diagnostic Saphenous Nerve Block-90% for >6 hours PRIOR: The patient is a 54-year-old female presents today for initial evaluation of chronic left knee pain due to osteoarthritis. The patient has experienced progressive and persistent pain in her left knee for the past several years, with initial onset occurring in [id number]. She is diagnosed with patellofemoral osteoarthritis and mild medial compartment osteoarthritis. Her symptoms includes significant pain interfering with daily activities like walking, knee bending, and stair climbing. She reports a feeling like bone grinding upon movement and consistent swelling with episodes of burning localized around the anterior and medial aspects of the knee. The patient reports sitting exacerbates her knee pain, and walking causes acute discomfort. Earlier treatments include cortisone injections, with most recent administered on 01/03/25, which delivered only transient relief. On a prior occasion, she had received similar treatment, also resulting in minimal relief. A knee brace is currently utilized to support stability, providing mild to moderate accomplishment in stability while walking. Gabapentin is employed in addressing pain linked to her fibromyalgia and associated neuropathic and diffuse body pain. - Onset: Left knee pain started 2-3 years ago, progressively worsening. - Quality: Described as severe, with grinding, sharp, aching and throbbing sensations. - Location: Primarily the left knee, anterior and medial aspects. - Radiation: Burning noted around the knee - Exacerbating Factors: Walking, prolonged sitting, stair climbing, cold weather. - Relieving Factors: Temporary relief from cortisone injections, Tylenol, NSAIDs, topical applications. - Interference: Significant interference with walking, climbing stairs, and knee bending. - Affect: The pain significantly impacts the patient's mobility and mental well-being due to its persistence. - Analgesia: Gabapentin and occasional ibuprofen or Tylenol; received cortisone injections with transient relief. - Adverse Effects: None reported. - Activities of Daily Living: Difficulty in walking, stair climbing, and bending the knee; moderate support from a knee brace. - Aberrant Drug Related Behaviors: None reported. PFS Medical History Adrenal incidentaloma Back pain Pre-diabetes GERD (gastroesophageal reflux disease) Fibromyalgia Bipolar disorder Insomnia Anxiety Depression Syncope Mild intermittent asthma NAFLD (nonalcoholic fatty liver disease) Vertigo Sleep apnea IBS (irritable bowel syndrome) Arthritis HTN (hypertension) Surgical History History of umbilical hernia repair (~11/14/24) Hx of colonoscopy History of esophagogastroduodenoscopy (EGD) History of hysterectomy Family History Father Diabetes Arthritis Hypertension Hypercholesteremia Cancer Mother Diabetes Hypertension Arthritis Cancer Son Asthma Son Asthma Heart problem Social History Are you a primary medication care manager to a significant other at home: No Do you presently have visiting nurse or other home services: No Alcohol intake: never Patient Tobacco Use Status: Never used Tobacco Current occupational status: retired Review of Systems Const All systems reviewed & are unremarkable except as noted in HPI and below Physical Exam Vital Signs: Last Vital Signs Pulse 77 04/12/25 10:52 BP 143/86 H 04/12/25 10:52 Pulse Ox 99 04/12/25 10:52 Oxygen Delivery Method Room Air 04/12/25 10:52 BMI result Body Mass Index 31.4 General: Appears afebrile. Alert and oriented. Mood and affect appropriate. Follows and participates in conversation appropriately. Respiratory effort is unlabored. No cough. Able to transition from sit to stand unassisted. Ambulates with bilaterally normal heel strike and toe off. Mild photosensitivity to light s/p acute migraine day before, treated in ER. Lead Insertion Site: Lead insertion site looks clean, dry, intact. No pathological discharge, no swelling and no erythema. Lead site dressing were changed today in the clinic. Positive paresthesia at 65 on the left. Results Reviewed Results Reviewed: MRI LEFT KNEE WITHOUT CONTRAST 11/11/24 HISTORY: M17.12 - Unilateral primary osteoarthritis, left knee COMPARISON: Correlation is made with plain films of the left knee dated 11/06/2024. FINDINGS: Bone marrow signal intensity is normal. There is a moderate suprapatellar joint effusion. There is no Gatica's cyst. There is an approximately 2.0 cm multiseptated cystic structure posterior to the medial tibial plateau, which may represent a ganglion cyst. The anterior and posterior cruciate ligaments and medial and lateral collateral ligaments are intact. The medial and lateral menisci are intact. The patellar and quadriceps tendons and patellar retinacula are unremarkable in appearance. The popliteus tendon is intact. There is moderate osteoarthritis of the patellofemoral compartment with cartilage loss and subchondral marrow changes. Milder changes are noted involving the medial compartment. IMPRESSION: 1. Moderate joint effusion. 2.0 cm probable ganglion cyst posterior to the medial tibial plateau. 3. Moderate patellofemoral osteoarthritis. Mild osteoarthritis of the medial compartment. XR KNEE 3 VIEWS LEFT, XR KNEE 1 VIEW RIGHT 11/06/24 HISTORY: M25.562 - Pain in left knee COMPARISON: Comparison is made with the prior examination dated 07/21/2023. FINDINGS: Three views of the left knee and a single standing AP view of the right knee are submitted. Osseous mineralization is normal. There is no fracture or dislocation. There is mild tricompartmental osteoarthritis without significant change from the prior study. On the right, there is mild narrowing of medial compartment. The soft tissues are unremarkable. IMPRESSION: Mild tricompartmental osteoarthritis of the left. Assessment & Plan Assessment & Plan (1) Patellofemoral arthralgia of left knee: Code(s): M25.562 - Pain in left knee Category: Medical (2) Left knee pain: Code(s): M25.562 - Pain in left knee Category: Medical Plan Patient reports 90-100% pain relief since the procedure with significant improvement in her symptoms, improved mobility, functioning and sleep with positive paresthesia at 65-70 stimulation. Patient will continue to monitor and adjust her stimulation as needed. Patient was instructed on dressing changes at home and device care. She will follow up in 7 weeks for Sprint removal and sooner if concerns arise. All questions and concerns have been answered and patient agreed with the plan. Follow up as needed. Patient was informed and verbally consented to the use of an ambient scribe for clinic note documentation during this visit. Patient Instructions: - Follow the care instructions for the Sprint device and dressings carefully. - Your follow-up is on May 31, 2025 for Sprint removal, but if issues arise sooner, arrange an earlier visit. - Contact us immediately if there's redness, signs of infection, or other concerns with the device site. Coding Level of Care Code Est Pt Level 3 (09700) Complex EM visit Add On G2211 Diagnoses Patellofemoral arthralgia of left knee M25.562 Left knee pain M25.562
[2025-04-12 10:52] VITALS: BP 143/86; PULSE 77; O2SAT 99; BMI 31.4
--- OUTSIDE RECORDS SUMMARY | 2025-04-12 12:39 | XMS_ITS | Encounter Summary ---
Author Organization [employer] Address [address] [place] [address] Care Team Providers Care Community Service Specialist Name Role Phone Alvina Mccartney MD Primary Care Provider [phone] Riky Tanner Unavailable Mariella Mcdonnell Unavailable [phone] Jina Vences MD Unavailable Shadia Morocho Unavailable Kendall Bates MD Unavailable [phone] Sara Pritchett Unavailable Encounter Details Date Type Department Care Team (Late st Contact Info) Description 04/14/2024 Abstract [facility] [address] [place], [place] [id number] Hayley Briscoe MA Social History Tobacco Use [...] Care Team (Late st Contact Info) Description 07/11/2025 10:30 AM EDT Office Visit [facility] [address] [place] [phone] Alvina Mccartney MD [address] [place] [address] documented as of this encounter Procedures Procedure Name Priority Date/Time Associated Diagnosis Comments DIABETES EYE EXAM Routine 04/04/2024 documented in this encounter Results * Diabetes Eye Exam (04/04/2024) Eye Exam Normal Normal Comment:repeat 5 year 04/04/2024 us Historical Provider HEALTH MAINTENANCE Final Result documented in this encounter Visit Diagnoses Not on filedocumented in this encounter Additional Health Concerns Assessment Noted Time PHQ-9 Depression Total Score: 8 07/26/20 23 10:55 AM EDT documented as of this encounter Care Teams Community Service Specialist Relationship Specialty Start Date End Date Alvina Mccartney MD [address] [place] [address] PCP - General Family Medicine 11/01/18 Riky Tanner [address] [place] [address] Cardiology 10/03/24 Mariella Mcdonnell [address] [address] Sleep Medicine 10/11/24 Jina Vences MD [address] [place] [address] Endocrinology 11/05/24 Shadia Morocho PA [address] [place] [address] Orthopaedic Surgery 11/07/24 Kendall Bates MD [address] [place] [address] General Surgery 11/28/24 Sara Pritchett [address] [place] [address] Pain Medicine 01/16/25 documented as of this encounter
== END 2025-04-12 11:14 | disposition home or self-care (01) ==
LOC: HO.PMC 10:47
PROVIDERS: PCP Family Medicine; Visit Provider Nurse Practitioner Family
DX: M25.562 Pain in left knee (principal)
CPT/HCPCS: 99213; G2211

== ENCOUNTER → 2025-04-12 10:46 | Outpatient (BNVA) | payer MEDICARE, SELFPAY | PROVIDERS: PCP Family Medicine; Visit Provider Nurse Practitioner Family | DX: M25.562 Pain in left knee (principal) | CPT/HCPCS: 99212 ==

== ENCOUNTER 2025-04-23 08:52 | Outpatient (AMB) | payer OTHER, SELFPAY ==
--- NOTE | 2025-04-23 09:16 | A.OFFVIS_ITS ---
Vital Signs 04/23/25 09:18 Height 5 ft 3 in Weight 178 lb 9.191 oz BMI 31.6 BP 110/70 Blood Pressure Location Lt brachial Position Sitting Pulse 60 Pulse Source Monitor Intake Visit Reasons: r/s 04/16/25 6 mos followup Director Pharmaceutical Required: Yes Director Pharmaceutical Language: Night Clerk Auditor Name: [id number] Accompanied by: Self / Same As Patient Allergies No Known Allergies Allergy (Verified 04/12/25 10:52) Medication List - Last Reconciled 04/23/25 by Riky Tanner MD amlodipine 10 mg PO QAM blood pressure test kit-large As directed buspirone 15 mg PO BID tlyafufjts-bjdnugzmsyxfa-ejhi 50-325-40 mg 1 tab PO Q6H PRN celecoxib (Celebrex) 200 mg PO BID 30 days cetirizine 10 mg PO QAM cholecalciferol (vitamin D3) (Vitamin D3) 25 mcg PO QAM dexamethasone 1 mg PO DAILY duloxetine 60 mg PO BEDTIME duloxetine 30 mg PO QAM esomeprazole magnesium 40 mg PO DAILY fluticasone propion-salmeterol 500-50 mcg/dose 1 ea inhalation BID fluticasone propionate 50 mcg/actuation 1 spray intranasal DAILY gabapentin 400 mg PO TID 30 days hydroxyzine HCl 10 mg PO TID ibuprofen 600 mg PO Q6H PRN lidocaine 5% leave on most painful area for up to 12 hrs topical 30 days lisinopril 20 mg PO QAM 90 days lorazepam 1 mg PO ONCE PRN 1 day ondansetron 4 mg PO Q6-8H PRN ondansetron HCl (Zofran) 4 mg PO Q8H PRN polyethylene glycol 3350 (ClearLax) 17 grams PO BID propranolol 80 mg PO DAILY sumatriptan succinate (Imitrex) 50 mg PO Q2H PRN zolpidem 10 mg PO BEDTIME HPI Comments Details: Pleasant 54 year female who is here for follow-up. She has background of palpitations, anxiety, syncope, adrenal incidentaloma and fatigue. She has hypertension. Previously blood pressure was noted to be low and she was complaining of dizziness and lightheadedness and she was advised to stop the hydrochlorothiazide. She has a TENs machine on her left thigh right now. She is saying that she is getting more palpitations. She is also describing chest pain and left arm heaviness. Despite using historical interpreter her history is quite vague. [facility] Medical History Adrenal incidentaloma Back pain Pre-diabetes GERD (gastroesophageal reflux disease) Fibromyalgia Bipolar disorder Insomnia Anxiety Depression Syncope Mild intermittent asthma NAFLD (nonalcoholic fatty liver disease) Vertigo Sleep apnea IBS (irritable bowel syndrome) Arthritis HTN (hypertension) Surgical History History of umbilical hernia repair (~11/14/24) Hx of colonoscopy History of esophagogastroduodenoscopy (EGD) History of hysterectomy Family History Father Diabetes Arthritis Hypertension Hypercholesteremia Cancer Mother Diabetes Hypertension Arthritis Cancer Son Asthma Son Asthma Heart problem Social History Are you a primary transitional care nurse to a significant other at home: No Do you presently have visiting nurse or other home services: No Alcohol intake: never Patient Tobacco Use Status: Never used Tobacco Current occupational status: retired Review of Systems Const Denies chills, Denies fatigue, Denies fever(s), Denies frequent falls, Denies weakness, Denies weight gain and Denies weight loss ENT Denies dizziness Card Denies chest pain, Denies leg edema, Denies lightheadedness, Denies palpitations, Denies dyspnea and Denies dyspnea on exertion Resp Denies cough, Denies dyspnea and Denies dyspnea on exertion GI Denies hematochezia Musc Denies abnormal gait, Denies muscle weakness, Denies numbness, Denies radiating pain into limb and Denies tingling Neuro Denies abnormal gait, Denies dizziness, Denies frequent falls, Denies numbness, Denies tingling and Denies weakness Endo Denies fatigue and Denies palpitations Physical Exam Vital Signs: Last Vital Signs Pulse 60 04/23/25 09:18 BP 110/70 04/23/25 09:18 BMI result Body Mass Index 31.6 GENERAL APPEARANCE: in no acute distress. NECK: no carotid bruit, no jugular venous distention. SKIN: no suspicious lesions, warm and dry. HEART: no murmurs, regular rate and rhythm. LUNGS: clear to auscultation bilaterally. ABDOMEN: soft, nontender. EXTREMITIES: no edema. PERIPHERAL PULSES: equal. NEUROLOGIC: No gross deficits, AAO X 3 Office Procedures EKG Details: Sinus rhythm 60 beats per minute, normal axis, normal ECG, QTC 408 milliseconds. [id number], Complete Assessment & Plan Assessment & Plan (1) Chest pain: Code(s): R07.9 - Chest pain, unspecified Category: Medical (2) HTN (hypertension): Code(s): I10 - Essential (primary) hypertension Category: Medical Qualifiers: Hypertension type: primary hypertension Qualified Code(s): I10 - Essential (primary) hypertension (3) Palpitations: Code(s): R00.2 - Palpitations Category: Medical Plan [age] year female who is here for follow-up. She has background history of palpitations and hypertension. Palpitations were felt to be related to anxiety previously. Blood pressure is well controlled right now. She had some dizziness and low blood pressures in the past and hydrochlorothiazide was discontinued. She is complaining of chest pains and left arm heaviness. History is quite vague and she has multiple complaints. We discussed about doing exercise stress test and we will do a modified Osei protocol ETT. She will see us after that. Thank you for allowing me to participate in the care of your patient. Please feel free to contact me if you have any questions. Orders: Orders CA stress test Today R07.9 - Chest pain, unspecified Coding Level of Care Code Est Pt Level 4 (29384) Diagnoses Chest pain R07.9 Primary hypertension I10 Hypertension type: primary hypertension Palpitations R00.2 CPT Codes EKG - CPT: 39513-Cbzpyijbmktzwzbsi, Complete ([id number])
[2025-04-23 09:18] VITALS: BP 110/70; PULSE 60; BMI 31.6
--- OUTSIDE RECORDS SUMMARY | 2025-04-23 09:25 | XMS_ITS | Encounter Summary ---
Author Organization [employer] Address [address] [place] [address] Care Team Providers Care Beauty Shop Manager Name Role Phone Alvina Mccartney MD Primary Care Provider [phone] Riky Tanner Unavailable Mariella Mcdonnell Unavailable [phone] Jina Vences MD Unavailable Shadia Morocho Unavailable Kendall Bates MD Unavailable [phone] Sara Pritchett Unavailable Encounter Details Date Type Department Care Team (Late st Contact Info) Description 04/14/2024 Abstract [facility] [address] [place], [place] [id number] Hayley Briscoe [place] Social History Tobacco Use [...] Care Team (Late st Contact Info) Description 05/07/2025 11:00 AM EDT Office Visit [address] [address] 07/11/2025 10:30 AM EDT Office Visit [address] [address] Alvina Mccartney MD [address] [place] [address] documented as of this encounter Procedures Procedure [...] documented as of this encounter Care Teams Beauty Shop Manager Relationship Specialty Start Date End Date Alvina Mccartney MD [address] [place] [address] PCP - General Family Medicine 11/01/18 Riky Tanner [address] [place] [address] Cardiology 10/03/24 Mariella Mcdonnell [address] [address] Sleep Medicine 10/11/24 Jina Vences MD [address] [place] [address] Endocrinology 11/05/24 Shadia Morocho PA [address] [place] [address] Orthopaedic Surgery 11/07/24 Kendall Bates MD [address] [place] [address] General Surgery 11/28/24 Sara Pritchett [address] [place] [address] Pain Medicine 01/16/25 documented as of this encounter
== END 2025-04-23 09:46 | disposition home or self-care (01) ==
LOC: HO.HCS 08:52
PROVIDERS: PCP Family Medicine; Visit Provider Internal Medicine Cardiovascular Disease
DX: R07.9 Chest pain, unspecified (principal); I10 Essential (primary) hypertension; R00.2 Palpitations
CPT/HCPCS: 93010; 99214

== ENCOUNTER → 2025-04-23 08:52 | Outpatient (BNVA) | payer OTHER, SELFPAY | PROVIDERS: PCP Family Medicine; Visit Provider Internal Medicine Cardiovascular Disease | DX: R07.9 Chest pain, unspecified (principal); R00.2 Palpitations; I10 Essential (primary) hypertension | CPT/HCPCS: 93005; 99212 ==

== ENCOUNTER 2025-04-30 11:31 | Outpatient (AMB) | payer OTHER, SELFPAY ==
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
[2025-04-30 11:46] VITALS: BP 122/58; PULSE 58; BMI 31.2
--- OUTSIDE RECORDS SUMMARY | 2025-04-30 12:25 | XMS_ITS | Encounter Summary ---
Author Organization [employer] Address [address] [place] [address] Care Team Providers Care Town Manager Name Role Phone Alvina Mccartney MD Primary Care Provider [phone] Riky Tanner Unavailable Mariella Mcdonnell Unavailable Jina Vences MD Unavailable Shadia Morocho Unavailable Kendall Bates MD Unavailable [phone] Sara Pritchett Unavailable Encounter Details Date Type Department Care Team (Late st Contact Info) Description 04/14/2024 Abstract [facility] [address] [place], [place] [id number] Hayley Briscoe MA Social History Tobacco Use [...] Description 05/07/2025 11:00 AM EDT Office Visit [address] [address] 07/11/2025 10:30 AM EDT Office Visit [address] [id number] Alvina Mccartney MD [address] [place] [address] documented as of this encounter Procedures Procedure [...] documented as of this encounter Care Teams Town Manager Relationship Specialty Start Date End Date Alvina Mccartney MD [address] [place] [address] PCP - General Family Medicine 11/01/18 Riky Tanner [address] [place] [address] Cardiology 10/03/24 Mariella Mcdonnell [address] [phone] Sleep Medicine 10/11/24 Jina Vences MD [address] [place] [address] Endocrinology 11/05/24 Shadia Morocho PA [address] [place] [address] Orthopaedic Surgery 11/07/24 Kendall Bates MD [address] [place] [address] General Surgery 11/28/24 Sara Pritchett [address] [place] [address] Pain Medicine 01/16/25 documented as of this encounter
== END 2025-04-30 12:23 | disposition home or self-care (01) ==
LOC: HO.HGI 11:31
PROVIDERS: PCP Family Medicine; Visit Provider Internal Medicine Gastroenterology
DX: K82.4 Cholesterolosis of gallbladder (principal); R10.2 Pelvic and perineal pain
CPT/HCPCS: 99214

== ENCOUNTER → 2025-04-30 11:31 | Outpatient (BNVA) | payer OTHER, SELFPAY | PROVIDERS: PCP Family Medicine; Visit Provider Internal Medicine Gastroenterology | DX: K21.9 Gastro-esophageal reflux disease without esophagitis (principal); K82.4 Cholesterolosis of gallbladder; R10.2 Pelvic and perineal pain | CPT/HCPCS: 99212 ==

== ENCOUNTER 2025-05-31 09:33 | Outpatient (AMB) | payer MEDICARE, SELFPAY ==
--- NOTE | 2025-05-31 09:38 | MHC.OFFVIS ---
Vital Signs 05/31/25 09:45 Height 5 ft 3 in Weight 176 lb BMI 31.2 BP 159/89 H Blood Pressure Location Lt brachial Position Sitting Pulse 72 Pulse Source Pulse Oximeter Pulse Oximetry (%) 96 Oxygen Delivery Method Room Air Intake Visit Reasons: Sprint removal Intake Note: Pain today 01/08 Business Management Manager Required: Yes Business Management Manager Language: [employer] Services: Business Management Manager Offered & Declined Business Management Manager Name: Son Accompanied by: Son Allergies No Known Allergies Allergy (Verified 04/12/25 10:52) HPI Comments Details: The patient is a 54-year-old female presenting with left knee pain. The pain has been persistent and was being managed with a saphenous nerve sprint stimulator, which is being removed today. The patient has a history of receiving a cortisone injection in December and has been attending physical therapy sessions, although she was discharged for noncompliance after only two sessions. The patient is interested to restart physical therapy now that the Sprint stimulator therapy is complete which allows her to be more functional and less symptomatic with activities, walking or climbing stairs. She also reports improved sleep with Sprint PNS trial. She occasional uses Celecoxib for pain relief with pain flare ups with good tolerance. The dressing was removed today. Lead insertion site is clean, dry, intact, no redness, no swelling, no pathological discharge. Area was cleansed with Chloraprep, lead pulled and removed entirely, including tip. Area was cleansed with Chloraprep again, applied Bacitracin and covered with dry sterile dressing. Denies any recent cough, cold, infection, fever or any significant changes in medical history since last office visit. Past Procedures: 04/05/25: Left Saphenous nerve Sprint [id number]% ongoing pain relief. 02/01/25: Left Diagnostic Saphenous Nerve Block-90% for >6 hours PRIOR: The patient is a 54-year-old female presenting with pain management and evaluation for peripheral nerve stimulation concerning her chronic left knee pain. Recently, she underwent a diagnostic saphenous nerve block with Dr. Mcclain, which provided at least 6 hours of pain relief before the discomfort returned, demonstrating potential suitability for a more prolonged nerve stimulation treatment. Her history reveals that cortisone injections, previously administered for pain relief, failed to offer long-term effects, barely lasting a month. This inadequacy has prompted her to seek further treatment with our office. She expresses that her pain impedes routine activities like prolonged standing, bending, kneeling, walking and stair climbing, which she finds increasingly difficult. Attempts at physical therapy have been hampered by continuous pain, reducing its potential effectiveness. Furthermore, the patient manages her at-home pain with limb elevation and oral medication including Gabapentin, Tylenol, and ice therapy. She sought lidocaine patches to augment pain control; however, insurance constraints have restricted this option. Denies any recent cough, cold, infection, fever or any other significant changes in medical history since last office visit. Past Procedures: 02/01/25: Left Diagnostic Saphenous Nerve Block-90% for >6 hours PRIOR: The patient is a 54-year-old female presents today for initial evaluation of chronic left knee pain due to osteoarthritis. The patient has experienced progressive and persistent pain in her left knee for the past several years, with initial onset occurring in [id number]. She is diagnosed with patellofemoral osteoarthritis and mild medial compartment osteoarthritis. Her symptoms includes significant pain interfering with daily activities like walking, knee bending, and stair climbing. She reports a feeling like bone grinding upon movement and consistent swelling with episodes of burning localized around the anterior and medial aspects of the knee. The patient reports sitting exacerbates her knee pain, and walking causes acute discomfort. Earlier treatments include cortisone injections, with most recent administered on 01/03/25, which delivered only transient relief. On a prior occasion, she had received similar treatment, also resulting in minimal relief. A knee brace is currently utilized to support stability, providing mild to moderate accomplishment in stability while walking. Gabapentin is employed in addressing pain linked to her fibromyalgia and associated neuropathic and diffuse body pain. - Onset: Left knee pain started 2-3 years ago, progressively worsening. - Quality: Described as severe, with grinding, sharp, aching and throbbing sensations. - Location: Primarily the left knee, anterior and medial aspects. - Radiation: Burning noted around the knee - Exacerbating Factors: Walking, prolonged sitting, stair climbing, cold weather. - Relieving Factors: Temporary relief from cortisone injections, Tylenol, NSAIDs, topical applications. - Interference: Significant interference with walking, climbing stairs, and knee bending. - Affect: The pain significantly impacts the patient's mobility and mental well-being due to its persistence. - Analgesia: Gabapentin and occasional ibuprofen or Tylenol; received cortisone injections with transient relief. - Adverse Effects: None reported. - Activities of Daily Living: Difficulty in walking, stair climbing, and bending the knee; moderate support from a knee brace. - Aberrant Drug Related Behaviors: None reported. [facility] Medical History Adrenal incidentaloma Back pain Pre-diabetes GERD (gastroesophageal reflux disease) Fibromyalgia Bipolar disorder Insomnia Anxiety Depression Syncope Mild intermittent asthma NAFLD (nonalcoholic fatty liver disease) Vertigo Sleep apnea IBS (irritable bowel syndrome) Arthritis HTN (hypertension) Surgical History History of umbilical hernia repair (~11/14/24) Hx of colonoscopy History of esophagogastroduodenoscopy (EGD) History of hysterectomy Family History Father Diabetes Arthritis Hypertension Hypercholesteremia Cancer Mother Diabetes Hypertension Arthritis Cancer Son Asthma Son Asthma Heart problem Social History Are you a primary family day care worker to a significant other at home: No Do you presently have visiting nurse or other home services: No Alcohol intake: never Patient Tobacco Use Status: Never used Tobacco Current occupational status: retired Review of Systems Const All systems reviewed & are unremarkable except as noted in HPI and below Physical Exam Vital Signs: Last Vital Signs Pulse 72 05/31/25 09:45 BP 159/89 H 05/31/25 09:45 Pulse Ox 96 05/31/25 09:45 Oxygen Delivery Method Room Air 05/31/25 09:45 BMI result Body Mass Index 31.2 General: Appears afebrile. Alert and oriented. Mood and affect appropriate. Follows and participates in conversation appropriately. Respiratory effort is unlabored. No cough. Able to transition from sit to stand unassisted. Ambulates with bilaterally normal heel strike and toe off. Lead Insertion Site: Lead insertion site looks clean, dry, intact. No pathological discharge, no swelling and no erythema. Lead pulled and removed entirely, including tip. Results Reviewed Results Reviewed: MRI LEFT KNEE WITHOUT CONTRAST 11/11/24 HISTORY: M17.12 - Unilateral primary osteoarthritis, left knee COMPARISON: Correlation is made with plain films of the left knee dated 11/06/2024. FINDINGS: Bone marrow signal intensity is normal. There is a moderate suprapatellar joint effusion. There is no Gatica's cyst. There is an approximately 2.0 cm multiseptated cystic structure posterior to the medial tibial plateau, which may represent a ganglion cyst. The anterior and posterior cruciate ligaments and medial and lateral collateral ligaments are intact. The medial and lateral menisci are intact. The patellar and quadriceps tendons and patellar retinacula are unremarkable in appearance. The popliteus tendon is intact. There is moderate osteoarthritis of the patellofemoral compartment with cartilage loss and subchondral marrow changes. Milder changes are noted involving the medial compartment. IMPRESSION: 1. Moderate joint effusion. 2.0 cm probable ganglion cyst posterior to the medial tibial plateau. 3. Moderate patellofemoral osteoarthritis. Mild osteoarthritis of the medial compartment. XR KNEE 3 VIEWS LEFT, XR KNEE 1 VIEW RIGHT 11/06/24 HISTORY: M25.562 - Pain in left knee COMPARISON: Comparison is made with the prior examination dated 07/21/2023. FINDINGS: Three views of the left knee and a single standing AP view of the right knee are submitted. Osseous mineralization is normal. There is no fracture or dislocation. There is mild tricompartmental osteoarthritis without significant change from the prior study. On the right, there is mild narrowing of medial compartment. The soft tissues are unremarkable. IMPRESSION: Mild tricompartmental osteoarthritis of the left. Assessment & Plan Assessment & Plan (1) Patellofemoral arthralgia of left knee: Code(s): M25.562 - Pain in left knee Category: Medical (2) Left knee pain: Code(s): M25.562 - Pain in left knee Category: Medical (3) Osteoarthritis of knees, bilateral: Code(s): M17.0 - Bilateral primary osteoarthritis of knee Category: Medical Qualifiers: Osteoarthritis type: primary Qualified Code(s): M17.0 - Bilateral primary osteoarthritis of knee (4) Fibromyalgia: Code(s): M79.7 - Fibromyalgia Category: Medical Plan The plan includes monitoring the patient's left knee pain following the removal of the saphenous nerve Sprint PNS stimulator. The patient is advised to restart physical therapy to manage the pain and improve function. If the pain becomes excessive, options such as gel or cortisone injections may be considered, and a follow-up with an patient access specialist may be necessary if worsening left knee pain. The patient is instructed to use Celecoxib sparingly to avoid potential renal complications which we reviewed today, and to report any significant increase in pain levels. All questions and concerns have been answered and patient agreed with the plan. Follow up as needed. Patient was informed and verbally consented to the use of an ambient scribe for clinic note documentation during this visit. Orders: Orders PT Evaluation and Treatment Today M25.562 - Pain in left knee Coding Level of Care Code Est Pt Level 3 (61794) Complex EM visit Add On G2211 Diagnoses Patellofemoral arthralgia of left knee M25.562 Left knee pain M25.562 Primary osteoarthritis of both knees M17.0 Osteoarthritis type: primary Fibromyalgia M79.7
[2025-05-31 09:45] VITALS: BP 159/89; PULSE 72; O2SAT 96; BMI 31.2
--- OUTSIDE RECORDS SUMMARY | 2025-05-31 09:57 | XMS_ITS | Encounter Summary ---
Author Organization [employer] Address [address] [facility] [address] [place] [address] Care Team Providers Care Varnish Maker Name Role Phone Alvina Mccartney MD Primary Care Provider [phone] Riky Tanner Unavailable Mariella Mcdonnell Unavailable [phone] Jina Vences MD Unavailable Shadia Morocho Unavailable Kendall Bates MD Unavailable Sara Pritchett Unavailable Alfreda Mendez MD Unavailable [phone] Encounter Details Date Type Department Care Team (Late st Contact Info) Description 04/14/2024 Abstract [facility] [address] [place], [place] [phone] Hayley Briscoe [place] Social History Tobacco Use [...] Description 07/11/2025 10:30 AM EDT Office Visit [facility] [address] [place] [address] Alvina Mccartney MD [address] [place] [address] 10/17/2025 10:00 AM EST Office Visit [facility] [address] [place] [address] Homero, Marli, OD [address] [place] [address] documented as of this encounter Procedures Procedure [...] documented as of this encounter Care Teams Varnish Maker Relationship Specialty Start Date End Date Alvina Mccartney MD [address] [facility] [place] [address] PCP - General Family Medicine 11/01/18 Riky Tanner [address] [facility] [place] [address] Cardiology 10/03/24 Mariella Mcdonnell [address] [phone] Sleep Medicine 10/11/24 J[place] [address] Endocrinology 11/05/24 Shadia Morocho PA [address] [place] [address] Orthopaedic Surgery 11/07/24 Kendall Bates MD [address] [address] General Surgery 11/28/24 Sara Pritchett [address] [place] [address] Pain Medicine 01/16/25 Alfreda Mendez MD [address] [place] [address] Gastroenterology 05/03/25 documented as of this encounter
--- OUTSIDE RECORDS SUMMARY | 2025-05-31 09:57 | XMS_ITS ---
Author Name MS. Aba Kirkpatrick APRN Address [address] [place] [address] Phone [phone] [facility][note 3][facility] Care Team Providers Care Networking Engineer Name Role Phone Debbie Kirkpatrick Unavailable [phone] Unavailable Unavailable Unavailable DOROTHEA NEAL Unavailable [phone] Carina Baird Unavailable Unavailable Reason for Referral [...] List Problem Status Onset Date Resolved Date Synopsis Major depressive disorder, recurrent, mild; ROBERTO; Insomnia Active 2023-10-05 N/A StableBuspar , Duloxetine, Zolpidem Denies SI/HITherapist: yesContinue taking medication, monitor for safety, coping mechanisms, and continue f/u care and monitoring with PCP and psychiatrist. Vertigo Active 2023-10-05 N/A StableMeclizin eContinue f/u care with PCP. Neuropathic pain Active 2023-10-05 N/A StableGa bapentinContinue f/u care and monitoring with PCP. Vitamin D deficiency Active 2023-10-05 N/A Stab leVitamin D3 supplement Continue f/u care with PCP. GERD (gastroesophageal reflux disease) Active 2023-10-05 N/A StableFamotidine Lifestyle interventions and continue with PCP and gastroenterology. Mild intermittent asthma Active 2023-10-05 N/A StableFluticason e-SalmeterolDenie s recent exacerbationsContinue taking medication, monitor for s/sx of respiratory distress and continue f/u care with PCP. Essential hypertension Active 2023-10-05 N/A StableLisinopril , Amlodipine, HCTZMonitor BP routinely, low salt diet, exercise as tolerable, and continue f/u care with PCP and cardiology. Blood pressure is slightly elevated - checks at home. Reports compliance with medication. Increased BP with pain - patient rating pain 8/10 Other problems related to medical facilities and other health care Active 2024-04-25 N/A PSYCH CONTING ENCY PLANMember to call for the following symptoms: Anxiety/ Suicidal thoughtsPlanned intervention: Contact mental health professional:/ Transfer member to 8 services/ Hydroxyzine (Vistaril) 25mg PO q6h PRN anxiety/ Remind member of personal goal:/ Encourage use of home medication:/ Limit extra stimulation Encounters Encounters Type Facility Date of Service Diagnosis/Co mplaint New patient, 30-44min 1 stable chronic or 2 minor; add modifier 95 for video, modifier 93 for phone [facility] Major depressive disorder, recurrent, mildInsomnia, unspecifiedGeneralized anxiety disorderGastro-esophageal reflux disease without esophagitisDizziness and giddinessEssential (primary) hypertensionNeuralgia and neuritis, unspecifiedVitamin D deficiency, unspecifiedMild intermittent asthma, uncomplicated New patient, 30-44min 1 stable chronic or 2 minor; add modifier 95 for video, modifier 93 for [facility]2023 New patient, 30-44min 1 stable chronic or 2 minor; add modifier 95 for video, modifier 93 for [facility] 10/05/2023 New patient, 30-44min 1 stable chronic or 2 minor; add modifier 95 for video, modifier 93 for [facility] 10/05/2023 New patient, 30-44min 1 stable chronic or 2 minor; add modifier 95 for video, modifier 93 for phone [facility] [place] 10[place]23 New patient, 30-44min 1 stable chronic or 2 minor; add modifier 95 for video, modifier 93 for phone [facility] 10/05/2023 Estab. patient 30-39min; chronic exacerbation, 2 stable chronic or 1 acute illness add add modifier 95 for video, (do not use for phone, instead use 20407-87) [facility] [place] 04/25/2024 Major depressive disorder, recurrent, mildInsomnia, unspecifiedGeneralized anxiety disorderGastro-esophageal reflux disease without esophagitisDizziness and giddinessEssential (primary) hypertensionNeuralgia and neuritis, unspecifiedVitamin D deficiency, unspecifiedMild intermittent asthma, uncomplicatedOther problems related to medical facilities and other health care Estab. patient 30-39min; chronic exacerbation, 2 stable chronic or 1 acute illness add add modifier 95 for video, (do not use for phone, instead use 71921-76) [facility] [place] 04/25/20[place] Estab. patient 30-39min; chronic exacerbation, 2 stable chronic or 1 acute illness add add modifier 95 for video, (do not use for phone, instead use 13037-27) [facility] 04/25/20[place] Estab. patient 30-39min; chronic exacerbation, 2 stable chronic or 1 acute illness add add modifier 95 for video, (do not use for phone, instead use 01935-11) [facility] 04/25/20[place] Estab. patient 30-39min; chronic exacerbation, 2 stable chronic or 1 acute illness add add modifier 95 for video, (do not use for phone, instead use 16524-72) [facility] [place] 04/25/20[place] Estab. patient 30-39min; chronic exacerbation, 2 stable chronic or 1 acute illness add add modifier 95 for video, (do not use for phone, instead use 65571-06) [facility] [place] 04/25/2024 Estab. patient 30-39min; chronic exacerbation, 2 stable chronic or 1 acute illness add add modifier 95 for video, (do not use for phone, instead use 76387-69) [facility] [place] 04[place]25/[place] Estab. patient 30-39min; chronic exacerbation, 2 stable chronic or 1 acute illness add add modifier 95 for video, (do not use for phone, instead use 51813-63) [facility] [place] 04/25/2024 Estab. patient 30-39min; chronic exacerbation, 2 stable chronic or 1 acute illness add add modifier 95 for video, (do not use for phone, instead use 49824-71) [facility] ([place] 04/25/2024 Unlisted special service; to be used for medical record reviews and reporting CPTII codes (1111F, etc) [facility] ([place] 09/04/2024 Other specified health statu s Unlisted special service; to be used for medical record reviews and reporting CPTII codes (1111F, etc) [facility] [place] 09/04/2024 Unlisted special service; to be used for medical record reviews and reporting CPTII codes (1111F, etc) [facility] [place] 09/04/2024 Vital Signs Date of Collection Vitals [...] tive Time Current Smoking Status Never smoker 2025-05-03 1 Sex Female History of Procedures Procedures Service Procedure code Service date Servicing provider Phone# New patient, 30-44min 1 stable chronic or 2 minor; add modifier 95 for video, modifier 93 for phone [id number] 2023-10-05 No Data Available No Data Available [...] (do not use for phone, instead use 98357-09) 77382 2024-04-25 No Data Available No Data Availa [...] ble Advance care planning discussed and documented advance care plan or surrogate decision-maker was [...] reviews and reporting CPTII codes (1111F, etc) 23750 2024-09-04 No Data Available No Data Availa ble SBP < 130 (3074F) 3074F 2024-09-04 No Data Available No Data Available DBP <80 (3078F) 3078F 2024-09-04 No Data Available No Data Available Functional Status Functional Category Effective Dates BARK SPUDDER assists with cooking, cl eaning, laundry, showering [...] modifier 95Advance care planning discussed and documented advance care plan or surrogate decision-maker was documented in the medical record. (1123F)Pain Assessment - Pain Documented (1125F)Advance care planning discussed and documented in the medical record beneficiary/patient did not wish to or was [...] modifier 95Advance care planning discussed and documented advance care plan or surrogate decision-maker was documented in the medical record. (1123F)Advance care planning discussed and documented in the medical record beneficiary/patient did not wish to or was [...] Contact mental health professional:/ Transfer member to [address] [place] [address]/ Hydroxyzine (Vistaril) 25mg PO q6h PRN anxiety/ [...]
== END 2025-05-31 09:53 | disposition home or self-care (01) ==
LOC: HO.PMC 09:34
PROVIDERS: PCP Family Medicine; Visit Provider Nurse Practitioner Family
DX: M25.562 Pain in left knee (principal); M17.0 Bilateral primary osteoarthritis of knee; M79.7 Fibromyalgia
CPT/HCPCS: 99213; G2211

== ENCOUNTER → 2025-05-31 09:33 | Outpatient (BNVA) | payer MEDICARE, SELFPAY | PROVIDERS: PCP Family Medicine; Visit Provider Nurse Practitioner Family | DX: M17.0 Bilateral primary osteoarthritis of knee (principal); M25.562 Pain in left knee; M79.7 Fibromyalgia | CPT/HCPCS: 99212 ==

== ENCOUNTER 2025-06-18 15:00 | Outpatient (RCR) | payer OTHER, SELFPAY ==
--- NOTE | 2025-06-11 14:50 | MHC.PT.EP ---
[facility] Office [place] Office [place] Office [address] [phone] F: [phone] F: [phone] F: [phone] F: [phone] Physical Therapy Plan of Care Date of Evaluation: 06/11/25 Date of Surgery: Diagnosis: pain in L knee patellofemoral arthralgia of L knee L knee pain, s/p L knee sprint PNS therapy, improved pain, pt is interested in restart PT Assessment: 55 y/o female referred to PT with pain in L knee. She recently underwent saphenous nerve sprint stimulator for 2 months, which was removed 05/31/25. 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 Examination shows decreased knee ROM, decreased hip/knee strength, increased pain, and impaired gait pattern. Recommend PT 2x/week for 5 weeks to address impairments, implement HEP, and optimize functional mobility. Frequency and Duration: The patient will be seen 2x/week for 5 weeks Short Term Goals: 3 weeks i with HEP Improve L knee ROM to 0-115 Tableau Report Developer Goals: 5 weeks I wtih HEp and self management of sx Pt will be able to walk > 15 min with pain < 3/10 Pt will improve LEFS to 30/80 (IR 18/80) Treatment Plan: Modalities to reduce pain, spasms and effusion. Manual therapy to restore motion and function. Therapeutic exercise to improve strength and flexibility. Neuromuscular re-education for posture and balance. Therapeutic activities to return to functional activities of daily living. Electronically signed by: Jennifer Lynch PT Please sign and return to therapist. Thank you for your referral.
--- NOTE | 2025-07-05 14:23 | MHC.PT.DC ---
[facility] [place] Office [place] Office [place] Office [address] Kavon Galeano [address] [phone] F: [phone] F: [phone] F: [phone] F: [phone] Physical Therapy Discharge Report Diagnosis: pain in L knee patellofemoral arthralgia of L knee L knee pain, s/p L knee sprint PNS therapy, improved pain, pt is interested in restart PT Date of Surgery: Date of Evaluation: 06/11/25 Date of Discharge: 07/05/25 Treatments to Date: 3 Cancellations to Date: 0 No Shows to Date: 3 Discharge Status: Visit Non-compliance Discharge Summary: Pt with 3 consecutive no show visits and is therefore d/c secondary to noncompliance with scheduling policy. Electronically signed by: Jennifer Lynch PT Please sign and return to therapist. Thank you for your referral.
== END 2025-07-05 14:23 | disposition home or self-care (01) ==
LOC: HO.PT 15:00
PROVIDERS: PCP Family Medicine; Visit Provider Nurse Practitioner Family
DX: M25.562 Pain in left knee (principal)
CPT/HCPCS: 97110; 97162

== ENCOUNTER 2025-06-21 09:39 | Outpatient (REF) | payer OTHER, SELFPAY ==
--- NOTE | ~2025-06-21 | US_ITS ---
EXAMINATION: US ABDOMEN LIMITED WITH LIVER ELASTOGRAPHY CLINICAL INFORMATION: Nonalcoholic fatty liver disease disease, epigastric pain, gallbladder polyp COMPARISON: None available. TECHNIQUE: Real-time imaging of the abdominal viscera. Noninvasive ultrasound liver fibrosis assessment is performed using Gigi ElastPQ point quantification shear wave elastography (pSWE) with a 5 MHz transducer. Multiple elastography samples are obtained. FINDINGS: PANCREAS: The visualized pancreatic head and body are normal in appearance. The remainder of the pancreas is obscured from visualization by the overlying bowel gas. LIVER: The liver demonstrates normal size, contour with minimally coarse echogenicity. No focal lesion or intrahepatic biliary duct dilatation. The right lobe measures 17 cm in length. The left lobe measures 11 cm in length. Shear wave elastography provides a median stiffness of 1.4 m/s (reference: normal median stiffness is 0.81 - 1.22 m/s). The IQR/median stiffness to assess sampling precision is 0.2 (reference: optimal IQR/median stiffness is under 0.3). GALLBLADDER: The gallbladder is physiologically distended without wall thickening. Again noted is an echogenic 4 mm nodule without posterior acoustic shadowing consistent with a polyp. COMMON BILE DUCT: Normal in caliber measuring 0.6 cm in diameter. RIGHT KIDNEY: No hydronephrosis. No renal calculi or focal parenchymal lesions. The kidney measures 10.5 cm in maximum dimension. FREE FLUID: None seen. US/US abdomen hargrove w elastography IMPRESSION: Stable gallbladder polyp. Mild coarsening of liver echogenicity wrist question of underlying mild hepatocellular disease or fatty changes. Elastography: In the absence of other known clinical signs, rules out compensated advanced chronic liver disease. Electronically signed by: Dennis Stahl MD 06/21/2025 10:45 AM EDT
--- OUTSIDE RECORDS SUMMARY | 2025-06-21 10:56 | XMS_ITS ---
Author Name Natalee Avilez NP Address [address] [place] [address] Phone [phone] [facility] Care Team Providers Care Bridge Contractor Name Role Phone Natalee Avilez Unavailable [phone] Unavailable Unavailable Unavailable VAL DOROTHEA Unavailable [phone] Carina Baird Unavailable Unavailable Reason for Referral [...] Contact mental health professional:/ Transfer member to [facility] services/ Hydroxyzine (Vistaril) 25mg PO q6h PRN anxiety/ Remind member of personal goal:/ Encourage use of home medication:/ Limit extra stimulation Encounters Encounters Type Facility Date of Service Diagnosis/Co mplaint New patient, 30-44min 1 stable chronic or 2 minor; add modifier 95 for video, modifier 93 for phone [facility]2023 Major depressive disorder, recurrent, mildInsomnia, unspecifiedGeneralized anxiety disorderGastro-esophageal reflux disease without esophagitisDizziness and giddinessEssential (primary) hypertensionNeuralgia and neuritis, unspecifiedVitamin D deficiency, unspecifiedMild intermittent asthma, uncomplicated New patient, 30-44min 1 stable chronic or 2 minor; add modifier 95 for video, modifier 93 for [facility] [place] New patient, 30-44min 1 stable chronic or 2 minor; add modifier 95 for video, modifier 93 for [facility] [place] 10/05/2023 New patient, 30-44min 1 stable chronic or 2 minor; add modifier 95 for video, modifier 93 for [facility] [place] 10/05/2023 New patient, 30-44min 1 stable chronic or 2 minor; add modifier 95 for video, modifier 93 for phone [facility] 10[place]2023 New patient, 30-44min 1 stable chronic or 2 minor; add modifier 95 for video, modifier 93 for phone [facility] [place] 10/05/2023 Estab. patient 30-39min; chronic exacerbation, 2 stable chronic or 1 acute illness add add modifier 95 for video, (do not use for phone, instead use 56909-92) [facility] [place] 04/25/2024 Major depressive disorder, recurrent, mildInsomnia, unspecifiedGeneralized anxiety disorderGastro-esophageal reflux disease without esophagitisDizziness and giddinessEssential (primary) hypertensionNeuralgia and neuritis, unspecifiedVitamin D deficiency, unspecifiedMild intermittent asthma, uncomplicatedOther problems related to medical facilities and other health care Estab. patient 30-39min; chronic exacerbation, 2 stable chronic or 1 acute illness add add modifier 95 for video, (do not use for phone, instead use 23255-71) [facility] [place] 04/25/2024 Estab. patient 30-39min; chronic exacerbation, 2 stable chronic or 1 acute illness add add modifier 95 for video, (do not use for phone, instead use 07657-02) [facility] [place] 04/25/20[place] Estab. patient 30-39min; chronic exacerbation, 2 stable chronic or 1 acute illness add add modifier 95 for video, (do not use for phone, instead use 84570-54) [facility] 04/25/20[place] Estab. patient 30-39min; chronic exacerbation, 2 stable chronic or 1 acute illness add add modifier 95 for video, (do not use for phone, instead use 90419-14) [facility] [place] 04/25/2024 Estab. patient 30-39min; chronic exacerbation, 2 stable chronic or 1 acute illness add add modifier 95 for video, (do not use for phone, instead use 38844-70) [facility] 04/25/20[place] Estab. patient 30-39min; chronic exacerbation, 2 stable chronic or 1 acute illness add add modifier 95 for video, (do not use for phone, instead use 88210-10) [facility] [place] 04[place] Estab. patient 30-39min; chronic exacerbation, 2 stable chronic or 1 acute illness add add modifier 95 for video, (do not use for phone, instead use 19568-18) [facility] [place] 04/25/2024 Estab. patient 30-39min; chronic exacerbation, 2 stable chronic or 1 acute illness add add modifier 95 for video, (do not use for phone, instead use 05905-02) [facility] ([place] 04/25/2024 Unlisted special service; to be used for medical record reviews and reporting CPTII codes (1111F, etc) [facility]) 09/04/2024 Other specified health statu s Unlisted special service; to be used for medical record reviews and reporting CPTII codes (1111F, etc) [facility]) 09/04/2024 Unlisted special service; to be used for medical record reviews and reporting CPTII codes (1111F, etc) [facility] ([place] 09/04/2024 Vital Signs Date of Collection Vitals [...] tive Time Current Smoking Status Never smoker 2025 1 Sex Female History of Procedures Procedures Service Procedure code Service date Servicing provider Phone# New patient, 30-44min 1 stable chronic or 2 minor; add modifier 95 for video, modifier 93 for phone [id number] 2023-10-05 No Data Available No Data Available [...] (do not use for phone, instead use 65824-13) 21177 2024-04-25 No Data Available No Data Availa [...] reviews and reporting CPTII codes (1111F, etc) 17394 2024-09-04 No Data Available No Data Availa ble SBP < 130 (3074F) 3074F 2024-09-04 No Data Available No Data Available DBP <80 (3078F) 3078F 2024-09-04 No Data Available No Data Available Functional Status Functional Category Effective Dates HEALTH CARE FACILITIES INSPECTOR assists with cooking, cl eaning, laundry, showering [...] Contact mental health professional:/ Transfer member to [address] [place] [address]/ Hydroxyzine (Vistaril) 25mg PO q6h PRN anxiety/ [...]
--- OUTSIDE RECORDS SUMMARY | 2025-06-21 10:56 | XMS_ITS | Encounter Summary ---
Author Organization [employer] Address [address] [facility] 7[address] [place] [address] Care Team Providers Care Disease Education Specialist Name Role Phone Alvina Mccartney MD Primary Care Provider [phone] Riky Tanner Unavailable Mariella Mcdonnell Unavailable [phone] Jina Vences MD Unavailable Shadia Morocho Unavailable Kendall Bates MD Unavailable Sara Pritchett Unavailable Alfreda Mendez MD Unavailable [phone] Encounter Details Date Type Department Care Team (Late st Contact Info) Description 04/14/2024 Abstract [facility] [address] [place], [place] [id number] Hayley Brisoce [place] Social History Tobacco Use Types Packs/Day [...] Description 07/11/2025 10:30 AM EDT Office Visit [facility] [address] [place] [address] Alvina Mccartney MD [address] [place] [address] 10/17/2025 10:00 AM EST Office Visit [facility] [address] [place] [address] Homero, Marli, OD [address] [place] [address] documented as of this encounter Procedures Procedure [...] documented as of this encounter Care Teams Disease Education Specialist Relationship Specialty Start Date End Date Alvina Mccartney MD [address] [facility] [address] PCP - General Family Medicine 11/01/18 Riky Tanner [address] [facility] [address] Cardiology 10/03/24 Mariella Mcdonnell [address] [phone] Sleep Medicine 10/11/24 [place] [address] Endocrinology 11/05/24 Shadia Morocho PA [address] [place] [address] Orthopaedic Surgery 11/07/24 Kendall Bates MD [address] [address] General Surgery 11/28/24 Sara Pritchett [address] [place] [address] Pain Medicine 01/16/25 Alfreda Mendez MD [address] [place] [address] Gastroenterology 05/03/25 documented as of this encounter
== END 2025-06-21 09:40 | disposition home or self-care (01) ==
LOC: HO.US 09:39
PROVIDERS: PCP Family Medicine; Visit Provider Internal Medicine Gastroenterology
DX: K82.4 Cholesterolosis of gallbladder (principal)
CPT/HCPCS: 76705; 76981

== ENCOUNTER → 2025-06-21 09:41 | Outpatient (BNV) | payer OTHER, SELFPAY | PROVIDERS: PCP Family Medicine; Visit Provider Radiology Diagnostic Radiology | DX: K76.0 Fatty (change of) liver, not elsewhere classified (principal) | CPT/HCPCS: 76705 ==

== ENCOUNTER → 2025-06-25 08:42 | Outpatient (REF) | payer OTHER, SELFPAY ==
--- OUTSIDE RECORDS SUMMARY | 2025-06-25 09:12 | XMS_ITS | Encounter Summary ---
Author Organization [employer] Address [address] [facility] 7[address] [place] [address] Care Team Providers Care Consulting Solution Manager Name Role Phone Alvina Mccartney MD Primary Care Provider [phone] Riky Tanner Unavailable Mariella Mcdonnell Unavailable [phone] Jina Vences MD Unavailable Shadia Morocho Unavailable Kendall Bates MD Unavailable [phone] Sara Pritchett Unavailable Alfreda Mendez MD Unavailable [phone] Encounter Details Date Type Department Care Team (Late st Contact Info) Description 04/14/2024 Abstract [facility] [address] [place], [place] [phone] Hayley Briscoe [place] Social History Tobacco Use [...] Care Team (Late st Contact Info) Description 06/25/2025 11:00 AM EDT Office Visit [facility] [address] [place] [address] 07/11/2025 10:30 AM EDT Office Visit [facility] [address] [place] [address] Alvina Mccartney MD [address] [place] [address] 10/17/2025 10:00 AM EST Office Visit [facility] [address] [place] [address] Homero, Marli, OD [address] [place] [address] documented as of this encounter Procedures Procedure [...] documented as of this encounter Care Teams Consulting Solution Manager Relationship Specialty Start Date End Date Alvina Mccartney MD [address] [place] [address] PCP - General Family Medicine 11/01/18 Riky Tanner [address] [place] [address] Cardiology 10/03/24 Mariella Mcdonnell [address] [place] [phone] Sleep Medicine 10/11/24 Jina Vences MD [address] [place] [address] Endocrinology 11/05/24 Shadia Morocho PA [address] [place] [address] Orthopaedic Surgery 11/07/24 Kendall Bates MD [address] [address] General Surgery 11/28/24 Sara Pritchett [address] [place] [address] Pain Medicine 01/16/25 Alfreda Mendez MD [address] [place] [address] Gastroenterology 05/03/25 documented as of this encounter
--- OUTSIDE RECORDS SUMMARY | 2025-06-25 09:13 | XMS_ITS ---
Author Name Natalee Avilez NP Address [address] [place] [address] Phone [phone] [facility] Care Team Providers Care Gastroenterology Technician Name Role Phone Natalee Avilez Unavailable [phone] Unavailable Unavailable Unavailable VAL DOROTHEA Unavailable [phone] Carina Baird Unavailable Unavailable Reason for Referral [...] Contact mental health professional:/ Transfer member to [facility] services/ Hydroxyzine (Vistaril) 25mg PO q6h PRN anxiety/ Remind member of personal goal:/ Encourage use of home medication:/ Limit extra stimulation Encounters Encounters Type Facility Date of Service Diagnosis/Co mplaint New patient, 30-44min 1 stable chronic or 2 minor; add modifier 95 for video, modifier 93 for phone [facility] 10/[place]/2023 Major depressive disorder, recurrent, mildInsomnia, unspecifiedGeneralized anxiety disorderGastro-esophageal reflux disease without esophagitisDizziness and giddinessEssential (primary) hypertensionNeuralgia and neuritis, unspecifiedVitamin D deficiency, unspecifiedMild intermittent asthma, uncomplicated New patient, 30-44min 1 stable chronic or 2 minor; add modifier 95 for video, modifier 93 for [facility] 10/05/2023 New patient, 30-44min 1 stable chronic or 2 minor; add modifier 95 for video, modifier 93 for [facility] 10/05/2023 New patient, 30-44min 1 stable chronic or 2 minor; add modifier 95 for video, modifier 93 for [facility] 10/05/2023 New patient, 30-44min 1 stable chronic or 2 minor; add modifier 95 for video, modifier 93 for phone [facility] 10/05/2023 New patient, 30-44min 1 stable chronic or 2 minor; add modifier 95 for video, modifier 93 for phone [facility] 10/05/2023 Estab. patient 30-39min; chronic exacerbation, 2 stable chronic or 1 acute illness add add modifier 95 for video, (do not use for phone, instead use 55776-55) [facility] [place] 04/25/2024 Major depressive disorder, recurrent, mildInsomnia, unspecifiedGeneralized anxiety disorderGastro-esophageal reflux disease without esophagitisDizziness and giddinessEssential (primary) hypertensionNeuralgia and neuritis, unspecifiedVitamin D deficiency, unspecifiedMild intermittent asthma, uncomplicatedOther problems related to medical facilities and other health care Estab. patient 30-39min; chronic exacerbation, 2 stable chronic or 1 acute illness add add modifier 95 for video, (do not use for phone, instead use 54410-30) [facility] 04/25/20[place] Estab. patient 30-39min; chronic exacerbation, 2 stable chronic or 1 acute illness add add modifier 95 for video, (do not use for phone, instead use 09271-24) [facility] 04/25/20[place] Estab. patient 30-39min; chronic exacerbation, 2 stable chronic or 1 acute illness add add modifier 95 for video, (do not use for phone, instead use 53899-79) [facility] 04/25/20[place] Estab. patient 30-39min; chronic exacerbation, 2 stable chronic or 1 acute illness add add modifier 95 for video, (do not use for phone, instead use 51952-70) [facility] 04/25/20[place] Estab. patient 30-39min; chronic exacerbation, 2 stable chronic or 1 acute illness add add modifier 95 for video, (do not use for phone, instead use 05558-05) [facility] 04/25/20[place] Estab. patient 30-39min; chronic exacerbation, 2 stable chronic or 1 acute illness add add modifier 95 for video, (do not use for phone, instead use 85489-86) [facility] ([place] 04/25/2024 Estab. patient 30-39min; chronic exacerbation, 2 stable chronic or 1 acute illness add add modifier 95 for video, (do not use for phone, instead use 71641-65) [facility] [place] 04/25/2024 Estab. patient 30-39min; chronic exacerbation, 2 stable chronic or 1 acute illness add add modifier 95 for video, (do not use for phone, instead use 34827-69) [facility] ([place] 04/25/2024 Unlisted special service; to be used for medical record reviews and reporting CPTII codes (1111F, etc) [facility]) 09/04/2024 Other specified health statu s Unlisted special service; to be used for medical record reviews and reporting CPTII codes (1111F, etc) [facility]) 09/04/2024 Unlisted special service; to be used for medical record reviews and reporting CPTII codes (1111F, etc) [employer] ([place]) 09/04/2024 Vital Signs Date of Collection Vitals [...] Time Current Smoking Status Never smoker 2025 7 Sex Female History of Procedures Procedures Service Procedure code Service date Servicing provider Phone# New patient, 30-44min 1 stable chronic or 2 minor; add modifier 95 for video, modifier 93 for phone 94237 2023-10-05 No Data Available No Data Available [...] (do not use for phone, instead use 20715-69) 78284 2024-04-25 No Data Available No Data Availa [...] reviews and reporting CPTII codes (1111F, etc) 58723 2024-09-04 No Data Available No Data Availa ble SBP < 130 (3074F) 3074F 2024-09-04 No Data Available No Data Available DBP <80 (3078F) 3078F 2024-09-04 No Data Available No Data Available Functional Status Functional Category Effective Dates NEIGHBORHOOD COORDINATOR assists with cooking, cl eaning, laundry, showering [...] Contact mental health professional:/ Transfer member to [address] [place] [address]/ Hydroxyzine (Vistaril) 25mg PO q6h PRN anxiety/ [...]
== END ==
LOC: HO.CARD 08:42
PROVIDERS: PCP Family Medicine; Visit Provider Internal Medicine Cardiovascular Disease
DX: Z13.89 Encounter for screening for other disorder (principal)

== ENCOUNTER 2025-08-06 08:41 | Outpatient (REF) | payer OTHER, SELFPAY ==
--- OUTSIDE RECORDS SUMMARY | 2025-07-30 11:00 | XMS_ITS | Encounter Summary ---
Author Organization [employer] Address [address] [facility] 7t [place] [address] Care Team Providers Care Hemming And Tacking Machine Operator Name Role Phone Alvina Mccartney MD Primary Care Provider [phone] Riky Tanner Unavailable Mariella Mcdonnell Unavailable [phone] Jina Vences MD Unavailable Shadia Morocho Unavailable Kendall Bates MD Unavailable Sara Pritchett Unavailable Alfreda Mendez MD Unavailable [phone] Encounter Details Date Type Department Care Team (Late st Contact Info) Description 07/30/2025 11:00 AM EDT Office Visit [facility] [address] [place], [place] [phone] Kath Soto MD [address] [place], [place] [phone] Fibromyalgia (Primary Dx) Social History Tobacco Use Types Packs/Day Years Used Date Smoking Tobacco: Never Passive Smoke Exposure: Never Smokeless Tobacco: Never Alcohol Use Standard Drinks/Week Comments Never 0 (1 standard drink = 0.6 oz pur e alcohol) Depression Answer Date Recorded Patient Health Questionnaire-9 Score 25 07/11/2025 Patient Health Questionnaire-9 Score 25 07/11/2025 Last PHQ-9: Questionnaire Data Not on file 0 07/11/2025 Housing Stability Answer Date Recorded What is [...] Date Recorded Patient Health Questionnaire-2 Score 6 07/11/2025 Internet Access Answer Date Recorded Internet Access [...] Progress Notes * Kath Soto MD - 07/30/2025 11:00 AM EDT Subjective: Lety Bates is a 54 y.o. female who presents to the office for Chronic Pain Group visits. Initial Group visit: 01/15/25 Group Visit Number: [id number] Last PCP visit: [place] 01/01/25 Group Confidentiality last signed: 01/15/25 Group Topic: Art and Acupuncture Updates: Had the SPRINT device placed for her L knee 04/05/25 and it is very helpful. It was removed and pain has increased since. She is concerned about the health of her children and this is stressing her. 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 Non-pharm tx: mobility aids, has cane and walker Related Specialists: orthopedics, pain mgmt Functional Goals: be active with her grandchildren, lose weight, and walk more (maybe also plant some plants) Other substance use: Tobacco: no Marijuana: no Alcohol: no Illicit substances: no Review of Systems Constitutional: Negative. Musculoskeletal: Positive for arthralgias, back pain and myalgias. Physical Exam Constitutional: Appearance: Normal appearance. HENT: Head: Normocephalic and atraumatic. Cardiovascular: Rate and Rhythm: Normal rate and regular rhythm. Pulses: Normal pulses. Heart sounds: Normal heart sounds. Skin: General: Skin is warm and dry. [...] contraindicated; in fact, it may improve symptoms - Recommended our group acupuncture program, stress reduction, etc. 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 Current Assessment & Plan Pt attended and participated in chronic pain group today - good engagement with group model of care - continue to use combination of non-pharmacological modalities to address pain - followup in 2-3 weeks Chronic pain of left knee Overview -seen by Ariel Morocho PA-C of [facility] 11/07/23 -MR/MR knee LT wo con 11/14/24 IMPRESSION: Moderate joint effusion. 2.0 cm probable ganglion cyst posterior to the medial tibial plateau. Moderate patellofemoral osteoarthritis. Mild osteoarthritis ofthe medial compartment. -referred to pain management 01/01/25 -referred to chronic pain group 01/01/25, note from CIARA Bates from 05/30/25 reviewed - start walking with cane for safety, fall risk. DME order placed 07/20/25 Low back pain at multiple sites Overview Chronic back pain. Likely due to fibromyalgia. -referred to acupuncture 01/01/25 -referred to pain management 01/01/25 -referred to chronic pain group 01/01/25 -s/p Left adductor canal saphenous nerve block, ultrasound-guided 01/31/2025 Follow up: 2 weeks for Group [facility]. Follow up as scheduled with PCP, sooner as needed. documented in this encounter Plan of Treatment Upcoming Encounters Date Type Department Care Team (Late st Contact Info) Description 08/06/2025 11:45 AM EDT Office Visit [facility] [address] [place] [address] 10/17/2025 10:00 AM EST Office Visit [facility]OM[facility] [address] [place] [address] Homero, Marli, OD [address] [place] [address] documented as of this encounter Visit Diagnoses Diagnosis Fibromyalgia- Primary Unspecified myalgia and myositis documented in this encounter Additional Health Concerns Assessment Noted Time PHQ-9 Depression Total Score: 25 025 10:29 AM EDT documented as of this encounter Care Teams Hemming And Tacking Machine Operator Relationship Specialty Start Date End Date Alvina Mccartney MD [address] [place] [address] PCP - General Family Medicine 11/01/18 Riky Tanner [address] [place] [address] 3rd [place] [address] Cardiology 10/03/24 Mariella Mcdonnell [address] [address] Sleep Medicine 10/11/24 Jina Vences MD [address] [place] [address] Endocrinology 11/05/24 Shadia Morocho PA [address] [place] [address] Orthopaedic Surgery 11/07/24 Kendall Bates MD [address] 3rd Floor [place] [address] General Surgery 11/28/24 Sara Pritchett [address] [place] [address] Pain Medicine 01/16/25 Alfreda Mendez MD [address] 3rd Floor [place] [address] Gastroenterology 05/03/25 documented as of this encounter
--- NOTE | ~2025-08-06 | CT_ITS ---
EXAMINATION: CT ABDOMEN PELVIS ADRENALS WITHOUT THEN WITH IV CONTRAST HISTORY: E27.8 - Other specified disorders of adrenal gland COMPARISON: Comparison is made with the prior examination dated 11/09/2024. TECHNIQUE: CT scan of the abdomen was performed before and after the intravenous administration of 85 mL Omnipaque 350. Postcontrast images were obtained through the adrenal glands in the portal venous and delayed phases to calculate adrenal washout. Coronal and sagittal reformatted images were generated and reviewed. Oral contrast material was not administered per department protocol. This CT exam was performed with one or more of the following dose reduction techniques: automated exposure control, adjustment of the mA and/or kV according to patient size, use of iterative reconstruction technique. DLP: 637 mGy-cm ABDOMEN: LOWER CHEST: The visualized lung bases are clear. There is no pleural effusion. There is a 1.7 cm left breast mass demonstrating internal calcifications, consistent with a fibroadenoma. CARDIOVASCULATURE: The heart is normal in size. There is no pericardial effusion. LIVER: The liver is normal in size and contour. No liver mass is identified. The hepatic and portal veins are patent. GALLBLADDER / BILE DUCTS: The gallbladder is unremarkable. There is no intra or extrahepatic biliary ductal dilatation. SPLEEN: The spleen is normal in size. No focal splenic lesion is identified. PANCREAS: The pancreas is unremarkable in appearance. ADRENAL GLANDS: The right adrenal gland is unremarkable. Again seen is a 9 mm left adrenal mass. The mass measures 48.1 HU on the unenhanced examination, 79.7 HU on the immediate postcontrast images, and 65.9 HU on the delayed images. This calculates to a 43.7% washout which is indeterminate. However, the nodule has been stable in size since at least 09/24/2021, highly suggestive of benignity. KIDNEYS/RETROPERITONEUM: No renal calculi are identified. There is no hydronephrosis. No renal masses are identified. LYMPH NODES: No abdominal or pelvic lymphadenopathy. VASCULATURE: The abdominal aorta is normal in caliber. MESENTERY/PERITONEUM: No free fluid. No masses. There is no free intraperitoneal gas. STOMACH: The stomach is collapsed, limiting evaluation. SMALL BOWEL: The visualized small bowel is normal in caliber. COLON: The visualized portion of the colon is unremarkable. BONES / SOFT TISSUES: No suspicious bony or soft tissue abnormalities. CT/CT adrenal wo/w IV con IMPRESSION: 9 mm left adrenal mass which is indeterminate for adenoma. However, the nodule has been stable since at least 09/24/2021, highly suggestive of benignity. Electronically signed by: Elder Esparza MD 08/06/2025 10:01 AM EDT
--- OUTSIDE RECORDS SUMMARY | 2025-08-06 09:22 | XMS_ITS | Encounter Summary ---
Author Organization [employer] Address [address] [facility] 7t [place] [address] Care Team Providers Care Senior Escrow Officer Name Role Phone Alvina Mccartney MD Primary Care Provider [phone] Riky Tanner Unavailable Mariella Mcdonnell Unavailable Jina Vences MD Unavailable Shadia Morocho Unavailable Kendall Bates MD Unavailable Sara Pritchett Unavailable Alfreda Mendez MD Unavailable [phone] Reason for Visit * Reason Comments Med Refill Encounter Details Date Type Department Care Team (Late st Contact Info) Description 12/01/2024 Refill [facility] [address] [place], [place] [phone] Alvina Mccartney MD [address] [place], [place] [phone] Pain Social History Tobacco Use Types Packs/Day [...] Description 08/06/2025 11:45 AM EDT Office Visit [facility] [address] [place] [address] 10/17/2025 10:00 AM EST Office Visit [facility] OPTOMETRY [address] [place] [address] Homero, Marli, OD [address] [place] [address] documented as of this encounter Visit Diagnoses Diagnosis Pain Generalized pain documented in this encounter Additional Health Concerns Assessment Noted Time PHQ-9 Depression Total Score: 8 07/26/20 23 10:55 AM EDT documented as of this encounter Care Teams Senior Escrow Officer Relationship Specialty Start Date End Date Alvina Mccartney MD [address] [place] [address] PCP - General Family Medicine 11/01/18 Riky Tanner [address] 3rd [place] [address] Cardiology 10/03/24 Mariella Mcdonnell [address] [phone] Sleep Medicine 10/11/24 Jina Vences MD [address] [place] [address] Endocrinology 11/05/24 Shadia Morocho PA [address] [place] [address] Orthopaedic Surgery 11/07/24 Kendall Bates MD [address] [place] [address] General Surgery 11/28/24 Sara Pritchett [address] [place] [address] Pain Medicine 01/16/25 Alfreda Mendez MD [address] [place] [address] Gastroenterology 05/03/25 documented as of this encounter
--- OUTSIDE RECORDS SUMMARY | 2025-08-06 09:22 | XMS_ITS | Encounter Summary ---
Author Organization [employer] Address [address] [facility] 7t [place] [address] Care Team Providers Care Hot Stick Worker Name Role Phone Alvina Mccartney MD Primary Care Provider [phone] Riky Tanner Unavailable Mariella Mcdonnell Unavailable [phone] Jina Vences MD Unavailable Shadia Morocho Unavailable Kendall Bates MD Unavailable [phone] Sara Pritchett Unavailable Alfreda Mendez MD Unavailable [phone] Encounter Details Date Type Department Care Team (Late st Contact Info) Description 04/14/2024 Abstract [facility] [address] [place], [place] [phone] Hayley Briscoe [place] Social History Tobacco Use [...] Description 08/06/2025 11:45 AM EDT Office Visit [facility] [address] [place] [address] 10/17/2025 10:00 AM EST Office Visit [facility] OPTOMETRY [address] [place] [address] Homero, Marli, OD [address] [place] [address] documented as of this encounter Procedures Procedure [...] documented as of this encounter Care Teams Hot Stick Worker Relationship Specialty Start Date End Date Alvina Mccartney MD [address] [place] [address] PCP - General Family Medicine 11/01/18 Riky Tanner [address] [place] [address] Cardiology 10/03/24 Mariella Mcdonnell [address] [address] Sleep Medicine 10/11/24 Jina Vences MD [address] [place] [address] Endocrinology 11/05/24 Shadia Morocho PA [address] [place] [address] Orthopaedic Surgery 11/07/24 Kendall Bates MD [address] [place] [address] General Surgery 11/28/24 Sara Pritchett [address] [place] [address] Pain Medicine 01/16/25 Alfreda Mendez MD [address] [place] [address] Gastroenterology 05/03/25 documented as of this encounter
--- OUTSIDE RECORDS SUMMARY | 2025-08-06 09:22 | XMS_ITS ---
Author Name Natalee Avilez NP Address [address] [place] [address] Phone [phone] [facility] Care Team Providers Care Skin Care Technician Name Role Phone Natalee Avilez Unavailable [phone] Unavailable Unavailable Unavailable VAL DOROTHEA Unavailable [phone] Carina Baird Unavailable Unavailable Reason for Referral [...] Contact mental health professional:/ Transfer member to [facility] services/ Hydroxyzine (Vistaril) 25mg PO q6h PRN anxiety/ Remind member of personal goal:/ Encourage use of home medication:/ Limit extra stimulation Encounters Encounters Type Facility Date of Service Diagnosis/Co mplaint New patient, 30-44min 1 stable chronic or 2 minor; add modifier 95 for video, modifier 93 for phone [facility], ([place]) 10/05/2023 Major depressive disorder, recurrent, mildInsomnia, unspecifiedGeneralized anxiety disorderGastro-esophageal reflux disease without esophagitisDizziness and giddinessEssential (primary) hypertensionNeuralgia and neuritis, unspecifiedVitamin D deficiency, unspecifiedMild intermittent asthma, uncomplicated New patient, 30-44min 1 stable chronic or 2 minor; add modifier 95 for video, modifier 93 for [facility], [place] 10/05/2023 New patient, 30-44min 1 stable chronic or 2 minor; add modifier 95 for video, modifier 93 for [facility], [place] 10/05/2023 New patient, 30-44min 1 stable chronic or 2 minor; add modifier 95 for video, modifier 93 for [facility], [place] 10/05/2023 New patient, 30-44min 1 stable chronic or 2 minor; add modifier 95 for video, modifier 93 for phone [facility], [place] 10/05/2023 New patient, 30-44min 1 stable chronic or 2 minor; add modifier 95 for video, modifier 93 for phone [facility] 10/05/2023 Estab. patient 30-39min; chronic exacerbation, 2 stable chronic or 1 acute illness add add modifier 95 for video, (do not use for phone, instead use 19502-57) [facility], [place] 04/25/2024 Major depressive disorder, recurrent, mildInsomnia, unspecifiedGeneralized anxiety disorderGastro-esophageal reflux disease without esophagitisDizziness and giddinessEssential (primary) hypertensionNeuralgia and neuritis, unspecifiedVitamin D deficiency, unspecifiedMild intermittent asthma, uncomplicatedOther problems related to medical facilities and other health care Estab. patient 30-39min; chronic exacerbation, 2 stable chronic or 1 acute illness add add modifier 95 for video, (do not use for phone, instead use 93048-15) [facility], ([place] 04/25/2024 Estab. patient 30-39min; chronic exacerbation, 2 stable chronic or 1 acute illness add add modifier 95 for video, (do not use for phone, instead use 63356-21) [facility] ([place] 04/25/2024 Estab. patient 30-39min; chronic exacerbation, 2 stable chronic or 1 acute illness add add modifier 95 for video, (do not use for phone, instead use 81748-96) [facility] 04/25/2024 Estab. patient 30-39min; chronic exacerbation, 2 stable chronic or 1 acute illness add add modifier 95 for video, (do not use for phone, instead use 37171-18) [facility] ([place] 04/25/2024 Estab. patient 30-39min; chronic exacerbation, 2 stable chronic or 1 acute illness add add modifier 95 for video, (do not use for phone, instead use 88077-43) [facility], ([place]) 04/25/2024 Estab. patient 30-39min; chronic exacerbation, 2 stable chronic or 1 acute illness add add modifier 95 for video, (do not use for phone, instead use 55589-25) [facility] ([place]) 04/25/2024 Estab. patient 30-39min; chronic exacerbation, 2 stable chronic or 1 acute illness add add modifier 95 for video, (do not use for phone, instead use 16235-23) [facility] ([place]) 04/25/2024 Estab. patient 30-39min; chronic exacerbation, 2 stable chronic or 1 acute illness add add modifier 95 for video, (do not use for phone, instead use 37571-93) [facility] ([place]) 04/25/2024 Unlisted special service; to be used for medical record reviews and reporting CPTII codes (1111F, etc) [facility]) 09/04/2024 Other specified health statu s Unlisted special service; to be used for medical record reviews and reporting CPTII codes (1111F, etc) [facility]) 09/04/2024 Unlisted special service; to be used for medical record reviews and reporting CPTII codes (1111F, etc) [facility] ([place]) 09/04/2024 Vital Signs Date of Collection Vitals [...] tive Time Current Smoking Status Never smoker 8 Sex Female History of Procedures Procedures Service Procedure code Service date Servicing provider Phone# New patient, 30-44min 1 stable chronic or 2 minor; add modifier 95 for video, modifier 93 for phone 13091 2023-10-05 No Data Available No Data Available [...] (do not use for phone, instead use 11295-78) 73210 2024-04-25 No Data Available No Data Availa [...] reviews and reporting CPTII codes (1111F, etc) 96755 2024-09-04 No Data Available No Data Availa ble SBP < 130 (3074F) 3074F 2024-09-04 No Data Available No Data Available DBP <80 (3078F) 3078F 2024-09-04 No Data Available No Data Available Functional Status Functional Category Effective Dates CHIEF CRNA assists with cooking, cl eaning, laundry, showering [...] Contact mental health professional:/ Transfer member to [address] [place] [address]/ Hydroxyzine (Vistaril) 25mg PO q6h PRN anxiety/ [...]
--- OUTSIDE RECORDS SUMMARY | 2025-08-06 09:22 | XMS_ITS | Encounter Summary ---
Author Organization [employer] Address [address] [facility] 7t [place] [address] Care Team Providers Care Subcontracts Manager Name Role Phone Alvina Mccartney MD Primary Care Provider [phone] Riky Tanner Unavailable Mariella Mcdonnell Unavailable Jina Vences MD Unavailable Shadia Morocho Unavailable Kendall Bates MD Unavailable [phone] Sara Pritchett Unavailable Alfreda Mendez MD Unavailable [phone] Reason for Visit * Reason Comments Med Refill Encounter Details Date Type Department Care Team (Late st Contact Info) Description 06/05/2024 Refill [facility] [address] [place], [place] [phone] Alvina Mccartney MD [address] [place], [place] [phone] Pain Social History Tobacco Use Types Packs/Day [...] Description 08/06/2025 11:45 AM EDT Office Visit [facility] [address] [place] [address] 10/17/2025 10:00 AM EST Office Visit [facility] OPTOMETRY [address] [place] [address] Homero, Marli, OD [address] [place] [address] documented as of this encounter Visit Diagnoses Diagnosis Pain Generalized pain documented in this encounter Additional Health Concerns Assessment Noted Time PHQ-9 Depression Total Score: 8 07/26/20 23 10:55 AM EDT documented as of this encounter Care Teams Subcontracts Manager Relationship Specialty Start Date End Date Alvina Mccartney MD [address] [place] [address] PCP - General Family Medicine 11/01/18 Riky Tanner [address]rd [place] [address] Cardiology 10/03/24 Mariella Mcdonnell [address] [address] Sleep Medicine 10/11/24 Jina Venecs MD [address] [place] [address] Endocrinology 11/05/24 Shadia Morocho PA [address] [place] [address] Orthopaedic Surgery 11/07/24 Kendall Bates MD [address] [place] [address] General Surgery 11/28/24 Sara Pritchett [address] [place] [address] Pain Medicine 01/16/25 Alfreda Mendez MD [address] [place] [address] Gastroenterology 05/03/25 documented as of this encounter
--- OUTSIDE RECORDS SUMMARY | 2025-08-06 09:22 | XMS_ITS | Encounter Summary ---
Author Organization [employer] Address [address] [facility] 7t [place] [address] Care Team Providers Care Telephone Sex Worker Name Role Phone Alvina Mccartney MD Primary Care Provider [phone]- [phone] Riky Tanner Unavailable Mariella Mcdonnell Unavailable Jina Vences MD Unavailable Shadia Morocho Unavailable Kendall Bates MD Unavailable Sara Pritchett Unavailable Alfreda Mendez MD Unavailable [phone] Encounter Details Date Type Department Care Team (Late st Contact Info) Description 08/02/2025 Refill [facility] MEDICINE [address] [place], [place] [phone] Alvina Mccartney MD [address] [place], [place] [phone] Social History Tobacco Use Types Packs/Day Years Used Date Smoking Tobacco: Never Passive Smoke Exposure: Never Smokeless Tobacco: Never Alcohol Use Standard Drinks/Week Comments Never 0 (1 standard drink = 0.6 oz pur e alcohol) Depression Answer Date Recorded Patient Health Questionnaire-9 Score 07/11/2025 Patient Health Questionnaire-9 Score 25 07/11/2025 [...] Description 08/06/2025 11:45 AM EDT Office Visit [facility] MEDICINE [address] [place] [address] 10/17/2025 10:00 AM EST Office Visit [facility] OPTOMETRY [address] [place] [address] Homero, Marli, OD [address] [place] [address] documented as of this encounter Visit Diagnoses Not on filedocumented in this encounter Additional Health Concerns Assessment Noted Time PHQ-9 Depression Total Score: 25 025 10:29 AM EDT documented as of this encounter Care Teams Telephone Sex Worker Relationship Specialty Start Date End Date Alvina Mccartney MD [address] [place] [address] PCP - General Family Medicine 11/01/18 Riky Tanner [address] [place] [address] Cardiology 10/03/24 Mariella Mcdonnell [address] [address] Sleep Medicine 10/11/24 Jina Vences MD [address] [place] [address] Endocrinology 11/05/24 Shadia Morocho PA [address] [place] [address] Orthopaedic Surgery 11/07/24 Kendall Bates MD [address] [place] [address] General Surgery 11/28/24 Sara Pritchett [address] [place] [address] Pain Medicine 01/16/25 Alfreda Mendez MD [address] [place] [address] Gastroenterology 05/03/25 documented as of this encounter
--- OUTSIDE RECORDS SUMMARY | 2025-08-06 09:23 | XMS_ITS | Encounter Summary ---
Author Organization [employer] Address 75 [facility] 7t [place] [address] Care Team Providers Care Plate And Weld Inspector Name Role Phone Alvina Mccartney MD Primary Care Provider [phone] Riky Tanner Unavailable Mariella Mcdonnell Unavailable Jina Vences MD Unavailable Shadia Morocho Unavailable Kendall Bates MD Unavailable Sara Pritchett Unavailable Alfreda Mendez MD Unavailable [phone] Encounter Details Date Type Department Care Team (Late st Contact Info) Description 12/03/2022 Abstract [facility] MEDICINE [address] [place], [place] [phone] Alvina Mccartney MD [address] [place], [place] [phone] Social History Tobacco Use Types Packs/Day Years [...] Description 08/06/2025 11:45 AM EDT Office Visit [facility] MEDICINE [address] [place] [address] 10/17/2025 10:00 AM EST Office Visit [facility] OPTOMETRY [address] [place] [address] Marli Valentin, OD [address] [place] [address] documented as of this encounter Procedures Procedure [...] on filedocumented in this encounter Care Teams Plate And Weld Inspector Relationship Specialty Start Date End Date Alvina Mccartney MD [address] [place] [address] PCP - General Family Medicine 11/01/18 Riky Tanner [address] [place] [address] Drive 3rd [place] [address] Cardiology 10/03/24 Mariella Mcdonnell [address] [address] Sleep Medicine 10/11/24 Jina Vences MD [address] [place] [address] Endocrinology 11/05/24 Shadia Morocho PA [address] [place] [address] Orthopaedic Surgery 11/07/24 Kendall Bates MD [address] [place] [address] General Surgery 11/28/24 Sara Pritchett [address] [place] [address] Pain Medicine 01/16/25 Alfreda Mendez MD [address] [place] [address] Gastroenterology 05/03/25 documented as of this encounter
--- OUTSIDE RECORDS SUMMARY | 2025-08-06 09:23 | XMS_ITS | Encounter Summary ---
Author Organization [employer] Address 75 [facility] 7t [place] [address] Care Team Providers Care Poultry Cutter Name Role Phone Alvina Mccartney MD Primary Care Provider [phone]- [phone] Riky Tanner Unavailable Mariella Mcdonnell Unavailable Jina Vences MD Unavailable Shadia Morocho Unavailable Kendall Bates MD Unavailable Sara Pritchett Unavailable Alfreda Mendez MD Unavailable [phone] Encounter Details Date Type Department Care Team (Late st Contact Info) Description 10/16/2022 Orders Only [facility] MEDICINE [address] [place], [place] [phone] Anel Espinoza, DAVID Social History Tobacco Use Types Packs/Day Years [...] Description 08/06/2025 11:45 AM EDT Office Visit [facility] MEDICINE [address] [place], [place] [phone] 10/17/2025 10:00 AM EST Office Visit [facility] OPTOMETRY [address] [place] [address] Homero, Marli, OD [address] [place] [address] documented as of this encounter Visit Diagnoses Not on filedocumented in this encounter Care Teams Poultry Cutter Relationship Specialty Start Date End Date Alvina Mccartney MD [address] [place] [address] PCP - General Family Medicine 11/01/18 Riky Tanner [address] [place] [address] Cardiology 10/03/24 Mariella Mcdonnell [address] [address] Sleep Medicine 10/11/24 Jina Vences MD [address] [place] [address] Endocrinology 11/05/24 Shadia Morocho PA [address] [place] [address] Orthopaedic Surgery 11/07/24 Kendall Bates MD [address] [place] [address] General Surgery 11/28/24 Sara Pritchett [address] [place] [address] Pain Medicine 01/16/25 Alfreda Mendez MD [address] [address] Gastroenterology 05/03/25 documented as of this encounter
--- OUTSIDE RECORDS SUMMARY | 2025-08-06 09:23 | XMS_ITS | Encounter Summary ---
Author Organization [employer] Address 75 [facility] 7t [place] [address] Care Team Providers Care Honey Blender Name Role Phone Alvina Mccartney MD Primary Care Provider [phone]- [phone] Riky Tanner Unavailable Marielal Mcdonnell Unavailable Jina Vences MD Unavailable Shadia Morocho Unavailable Kendall Bates MD Unavailable Sara Pritchett Unavailable Alfreda Mendez MD Unavailable [phone] Reason for Visit * Reason Comments Med Refill Encounter Details Date Type Department Care Team (Late st Contact Info) Description 01/18/2025 Refill [facility] MEDICINE [address] [place], [place] [phone] Alvina Mccartney MD [address] [place], [place] [phone] Mild intermittent asthma without complication Social History [...] Upcoming Encounters Date Type Department Care Team ([facility] Contact Info) Description 08/06/2025 11:45 AM EDT Office Visit [facility] MEDICINE [address] [place] [address] 10/17/2025 10:00 AM EST Office Visit [facility] OPTOMETRY [address] [place] [address] Homero, Marli, OD [address] [place] [address] documented as of this encounter Visit Diagnoses Diagnosis Mild intermittent asthma without complication documented in this encounter Additional Health Concerns Assessment Noted Time PHQ-9 Depression Total Score: 17 025 9:49 AM EST documented as of this encounter Care Teams Honey Blender Relationship Specialty Start Date End Date Alvina Mccartney MD [address] [place] [address] [place] [address] PCP - General Family Medicine 11/01/18 Riky Tanner [address] [place] [address] Cardiology 10/03/24 Mariella Mcdonnell [address] [phone] Sleep Medicine 10/11/24 Jina Vences MD [address] [place] [address] Endocrinology 11/05/24 Shadia Morocho PA [address] [place] [address] Orthopaedic Surgery 11/07/24 Kendall Bates MD [address] [place] [address] General Surgery 11/28/24 Sara Pritchett [address] [place] [address] Pain Medicine 01/16/25 Alfreda Mendez MD [address] [place] [address] Gastroenterology 05/03/25 documented as of this encounter
--- OUTSIDE RECORDS SUMMARY | 2025-08-06 09:23 | XMS_ITS | Encounter Summary ---
Author Organization [employer] Address 75 [facility] 7t [place] [address] Care Team Providers Care Operations And Maintenance Supervisor Name Role Phone Alvina Mccartney MD Primary Care Provider [phone]- [phone] Riky Tanner Unavailable Mariella Mcdonnell Unavailable [phone] Jina Vences MD Unavailable Shadia Morocho Unavailable Kendall Bates MD Unavailable Sara Pritchett Unavailable Alfreda Mendez MD Unavailable [phone] Encounter Details Date Type Department Care Team (Late st Contact Info) Description 04/22/2023 Orders Only [facility] MEDICINE [address] [place], [place] [phone] Alvina Mccartney MD [address] [place], [place] [phone] Dizzy (Primary Dx) Social History Tobacco Use [...] Recorded In the last 10 days, have oskar u been in contact with someone who was confirmed or suspected to have Coronavirus/COVID-19? No / Unsure 04/01/2023 11:18 AM EDT documented as of this encounter Plan of Treatment Upcoming Encounters Date Type Department Care Team (Late st Contact Info) Description 08/06/2025 11:45 AM EDT Office Visit [facility] MEDICINE [address] [place] [address] 10/17/2025 10:00 AM EST Office Visit [facility] OPTOMETRY [address] [place] [address] Homero, Marli, OD [address] [place] [address] documented as of this encounter Visit Diagnoses Diagnosis Dizzy- Primary Dizziness and giddiness documented in this encounter Care Teams Operations And Maintenance Supervisor Relationship Specialty Start Date End Date Alvina Mccartney MD [address] [place] [address] PCP - General Family Medicine 11/01/18 Riky Tanner [address]rd [place] [address] Cardiology 10/03/24 Mariella Mcdonnell [address] [address] Sleep Medicine 10/11/24 Jina Vences MD [address] [place] [address] Endocrinology 11/05/24 Shadia Morocho PA [address] [place] [address] Orthopaedic Surgery 11/07/24 Kendall Bates MD [address] 3rd [place] [address] General Surgery 11/28/24 Sara Pritchett [address] [place] [address] Pain Medicine 01/16/25 Alfreda Mendez MD [address] 3rd [place] [address] Gastroenterology 05/03/25 documented as of this encounter
--- OUTSIDE RECORDS SUMMARY | 2025-08-06 09:23 | XMS_ITS | Clinical Summary ---
Author Organization [employer] Address [address] [facility] [address] [place] [address] Care Team Providers Care Cnc Specialist Name Role Phone Alvina Mccartney MD Primary Care Provider [phone] Riky Tanner Unavailable Mariella Mcdonnell Unavailable [phone] Jina Vences MD Unavailable Shadia Morocho Unavailable Kendall Bates MD Unavailable [phone] Sara Pritchett Unavailable Alfreda Mendez MD Unavailable Allergies No known active allergies Medications * This document contains information received from the source organization and may not represent a complete record from that organization. mesalamine ER (Apriso) 0.375 g 24 hr capsuleIndication s:Irritable bowel syndrome, unspecified type TAKE 4 CAPSULES BY MOUTH EVERY MORNING 05/26/20 24 Active busPIRone (Buspar) 15 MG tabletIndications :Major depression single episode, in partial remission (CMS/HCC) Take 15 mg by mouth 2 times daily. Take 2 tab po bid per Dr. Rose Hester Active DULoxetine (Cymbalta) 30 MG capsuleIndication s:Major depression single episode, in partial remission (CMS/HCC) Take 30 mg by mouth Once per day. Do not crush or chew. Dr. Rose Hester Active zolpidem (Ambien) 10 MG tabletIndications :Major depression single episode, in partial remission (CMS/HCC) Take by mouth if needed at bedtime for sleep. Dr. Rose Hester Active Fluticasone-Salme terol 500-50 MCG/ACT aerosol powderIndications :Mild intermittent asthma without complication INHALE 1 PUFF BY MOUTH TWICE DAILY RINSE MOUTH AFTER USING. 30 each 07/31/20 24 Active celecoxib (CeleBREX) 200 MG capsule Take [...] [address] capsule 02/01/20 25 Active esomeprazole (NexIUM) [address] capsule Take 40 mg by mouth in the morning. 03/06/20 25 Active ibuprofen 600 MG tablet 11/14/19 25 Active ondansetron ODT (Zofran-ODT) 4 MG disintegrating tablet DISSOLVE 1 TABLET ON TONGUE EVERY 6 TO 8 HOURS NEEDED FOR NAUSEA AND VOMITING 04/12/20 25 Active lidocaine (Lidoderm) 5 % patch APPLY 1 PATCH TOPICALLY TO SKIN, LEAVE ON FOR 12 HOURS AND OFF FOR 12 HOURS DIRECTED (LEAVE ON MOST PAINFUL AREA) 03/09/20 25 Active oxyCODONE (Roxicodone) 5 MG immediate release tablet 11/14/19 25 Active Ventolin HFA 108 (90 Base) MCG/ACT inhalerIndication s:Mild intermittent asthma without complication Inhale 2 puffs every 4 (four) hours if needed for wheezing or shortness of breath. 18 g 11 05/14/20 25 Active acetaminophen (Acetaminophen 8 Hour) 650 MG ER tabletIndications :Low back pain at multiple sites Take 1 tablet (650 mg) by mouth every 8 (eight) hours if needed (pain or fever). Do not crush, chew, or split. 100 tablet 3 05/14/20 25 2025 Active cetirizine (ZyrTEC) 10 MG tabletIndications :Allergic rhinitis, unspecified seasonality, unspecified trigger TAKE 1 TABLET BY MOUTH EVERY DAY 90 tablet 3 06/18/20 25 Active SUMAtriptan (Imitrex) 50 MG tablet Take 1 tablet (50 mg) by mouth 1 (one) time if needed for migraine for up to 1 dose. May repeat dose once in 2 hours if no relief. Do not exceed 2 doses in 24 hours. 9 tablet 3 06/18/20 25 Active butalbital-acetam inophen-caffeine 50-325-40 MG tablet Take 1 tablet by mouth Once daily as needed for migraine. 10 tablet 06/18/20 25 Active D3-1000 25 MCG (1000 UT) capsuleIndication s:Vitamin D deficiency TAKE 1 CAPSULE BY MOUTH EVERY MORNING 30 capsule 11 06/21/20 25 Active amLODIPine (Norvasc) 10 MG tabletIndications :Essential hypertension TAKE 1 TABLET BY MOUTH EVERY MORNING 30 tablet 11 06/21/20 25 Active lisinopril 20 MG tabletIndications :Essential hypertension TAKE 1 TABLET BY MOUTH EVERY MORNING 30 tablet 11 06/21/20 25 Active lansoprazole (Prevacid) [address] capsule Take 30 mg by mouth in the morning. 06/26/20 25 Active gabapentin (Neurontin) 400 MG capsule TAKE 1 CAPSULE BY MOUTH THREE TIMES DAILY THREE TIMES DAILY IN THE MORNING, EVENING, AND BEDTIME 90 capsule 08/02/20 25 Active gabapentin (Neurontin) 400 MG capsule TAKE 1 CAPSULE BY MOUTH THREE TIMES DAILY THREE TIMES DAILY IN THE MORNING, EVENING, AND BEDTIME 90 capsule 06/26/20 25 2024 Discontinued(R eorder (will not trigger notification to Pharmacy)) cephalexin (Keflex) 500 MG capsuleIndication s:Ingrown hair Take 1 capsule (500 mg) by mouth 3 times daily for 7 days. 21 capsule 07/11/20 25 2024 Active Problems Problem Noted Date Diagnosed Date Gall bladder polyp 05/03/2025 Overview (06/21/2025): -Seen by Dr. Mendez 04/30/25:epigastric pain, GB polyp on imaging, stable on US,. -repeat US to re eval GB polyp ansd r/o other path -repeat EGD -US ordered by Dr. Mendez 06/21/25 US/US abdomen shah w elastography IMPRESSION: Stable gallbladder polyp. Mild coarsening of liver echogenicity wrist question of underlying mild hepatocellular disease or fatty changes. Elastography: In the absence of other known clinical signs, rules out compensated advanced chronic liver disease. Gastroesophageal reflux disease without esophagi tis 05/03/2025 Overview (05/03/2025): -Seen by Dr. Mendez 04/30/25:try lansoprazole --stop esomeprazole -EGD ordered Nonintractable episodic headache 04/12/2025 Overview (04/12/2025): Seen in ER 04/11/25 CT head Impression: No acute intracranial abnormality is identified. Breast pain, left 01/01/2025 Overview (01/01/2025): Generalized right-sided breast pain. No concerning red flag symptoms. -ordered mammogram 01/01/25 Assessment & Plan (01/01/2025 5:26 PM EST): Generalized right-sided breast pain. No concerning red flag symptoms. -ordered mammogram 01/01/25 Low back pain at multiple sites 01/01/2025 Overview (07/11/2025): Chronic back pain. Likely due to fibromyalgia. -referred to acupuncture 01/01/25 -referred to pain management 01/01/25 -referred to chronic pain group 01/01/25 -s/p Left adductor canal saphenous nerve block, ultrasound-guided 01/31/2025 -referred to PT 07/11/25 Assessment & Plan (07/11/2025 10:56 AM EDT): Chronic back pain. Likely due to fibromyalgia. -referred to acupuncture 01/01/25 -referred to pain management 01/01/25 -referred to chronic pain group 01/01/25 -s/p Left adductor canal saphenous nerve block, ultrasound-guided 01/31/2025 -referred to PT 07/11/25 Orders: Referral to Physical Therapy; Future Assessment & Plan (01/01/2025 5:38 PM EST): Chronic back pain. Likely due to fibromyalgia. -referred to acupuncture 01/01/25 -referred to pain management 01/01/25 -referred to chronic pain group 01/01/25 Overweight 12/31/2024 Overview (01/01/2025): Discussed weight, diet, exercise with patient in relation to health conditions. Used motivational interviewing to illicit change talk and established initial goals with patient. Assessment & Plan (07/11/2025 10:56 AM EDT): Discussed weight, diet, exercise with patient in relation to health conditions. Used motivational interviewing to illicit change talk and established initial goals with patient. Assessment & Plan (01/01/2025 5:25 PM EST): Discussed weight, diet, exercise with patient in relation to health conditions. Used motivational interviewing to illicit change talk and established initial goals with patient. Chronic pain of left knee 11/07/2024 Overview (07/11/2025): -seen by Ariel Morocho PA-C of [facility] 11/07/23 -MR/MR knee LT wo con 11/14/24 IMPRESSION: Moderate joint effusion. 2.0 cm probable ganglion cyst posterior to the medial tibial plateau. Moderate patellofemoral osteoarthritis. Mild osteoarthritis of the medial compartment. -referred to pain management 01/01/25 -referred to chronic pain group 01/01/25, note from CIARA Bates from 05/30/25 reviewed -referred to PT 07/11/25 Assessment & Plan (07/11/2025 10:56 AM EDT): -seen by Ariel Morocho PA-C of [facility] 11/07/23 -MR/MR knee LT wo con 11/14/24 IMPRESSION: Moderate joint effusion. 2.0 cm probable ganglion cyst posterior to the medial tibial plateau. Moderate patellofemoral osteoarthritis. Mild osteoarthritis of the medial compartment. -referred to pain management 01/01/25 -referred to chronic pain group 01/01/25, note from CIARA Bates from 05/30/25 reviewed -referred to PT 07/11/25 Orders: Referral to Physical Therapy; Future Assessment & Plan (05/22/2025 8:04 AM EDT): Lety requested more Diclofenac gel, so a sample was given to her. It is helping her arthritis pain Assessment & Plan (01/29/2025 1:05 PM EDT): [...] EST): -seen by Ariel Morocho PA-C of [facility] 11/07/23 -MR/MR knee LT wo [...] prescribe lidocaine patches to reevaluate. -seen by [facility] 01/02/25 given left knee steroid injection [...] lidocaine patches to reevaluate. Prediabetes 07/05/2024 Overview (07/11/2025): Lab Results Component Value Date HGBA1C 5.6 07/11/2025 HGBA1C 5.9 07/05/2024 HGBA1C 5.7 12/27/2023 GLUCOSE 95 04/11/2025 GLUCOSE 114 10/01/2022 Assessment & Plan (07/11/2025 10:56 AM EDT): Lab Results Component Value Date HGBA1C 5.6 07/11/2025 HGBA1C 5.9 07/05/2024 HGBA1C 5.7 12/27/2023 GLUCOSE 95 04/11/2025 GLUCOSE 114 10/01/2022 Orders: POCT Glucose POCT Hgb A1c Other irritable bowel syndrome 05/29/2024 Overview (05/03/2025): -Followed by Alfreda Mendez MD, Seen 04/30/25 for irritable bowel syndrome with both constipation and diarrhea--IBS-M--strong component of anxiety driving sx, ddx: sibo given bloating or CHO intolerance, functional dyspepsia Vasovagal syncope 03/16/2024 Overview (10/03/2024): Syncopal event [...] describing symptoms of lightheadedness when turning head [id number] which sounds more like vertigo. No clear [...] by Dr. Tanner 09/2024, hydrochlorothiazide discontinued 09/2024 Insomnia 10/05/2023 Neuropathic pain 10/05/2023 Vitamin D deficiency 10/05/2023 Adrenal nodule 09/15/2023 Overview (07/11/2025): Incidental noted on ER CT CT abdomen [...] up in August [address] scan -reminded about follow up in August 2025. Assessment & Plan (07/11/2025 10:56 AM EDT): Incidental noted on ER CT CT abdomen [...] up in August [address] scan -reminded about follow up in August 2025. Assessment & Plan (01/01/2025 5:25 PM EST): [...] signs, recheck 1 year Hypercholesteremia 09/13/2023 Overview (07/11/2025): Lab Results Component Value Date CHOL 184 07/08/2024 CHOL 208 (H) 07/29/2023 TRIG 101 07/08/2024 TRIG 117 07/29/2023 HDL 36 (L) 07/08/2024 HDL 46 07/29/2023 LDLCHOLCAL 128 (H) 07/08/2024 LDLCHOLCAL 139 (H) 07/29/2023 -continue lifestyle modification -recommended Sulfacetamide 01/01/25 -ordered repeat FLP and HFP 07/11/25 Assessment & Plan (07/11/2025 10:56 AM EDT): Lab Results Component Value Date CHOL 184 07/08/2024 CHOL 208 (H) 07/29/2023 TRIG 101 07/08/2024 TRIG 117 07/29/2023 HDL 36 (L) 07/08/2024 HDL 46 07/29/2023 LDLCHOLCAL 128 (H) 07/08/2024 LDLCHOLCAL 139 (H) 07/29/2023 -continue lifestyle modification -recommended Sulfacetamide 01/01/25 -ordered repeat FLP and HFP 07/11/25 Orders: Lipid Panel, Standard; Future Hepatic Function Panel; Future Assessment & Plan (01/01/2025 5:28 PM EST): Lab Results Component Value Date CHOL 184 07/08/2024 CHOL 208 (H) 07/29/2023 TRIG 101 07/08/2024 TRIG 117 07/29/2023 HDL 36 (L) 07/08/2024 HDL 46 07/29/2023 LDLCHOLCAL 128 (H) 07/08/2024 LDLCHOLCAL 139 (H) 07/29/2023 -continue lifestyle modification -recommended Sulfacetamide 01/01/25 Urinary incontinence 07/26/2023 Overview (01/01/2025): -followed by urology Assessment & Plan (07/11/2025 10:56 AM EDT): -referred to Uro/SENIOR PROGRAM ANALYST for further recommendations and evaluations. 07/11/25 Orders: Referral to Urogynecology; Future Assessment & Plan (07/26/2023 10:41 AM EDT): Referral to Urology done 07/26/2023. Other specified health status 07/21/2023 Overview (07/11/2025): -next comprehensive annual evaluation due after 07/05/25 -eye care facilitated by [facility] -dental home is encouraged -Health care proxy given and filed 07/05/24 Assessment & Plan (07/11/2025 10:56 AM EDT): -next comprehensive annual evaluation due after 07/05/25 -eye care facilitated by [facility] -dental home is encouraged -Health care proxy [...] were nml -continue Claritin Assessment & Plan (07/11/2025 10:56 AM EDT): She is controlled on Adviar [...] 9:42 PM EST): -Previously established with [facility], last available consult note from 2018. -Referral to re-establish care with [facility] Essential hypertension 12/12/2018 Overview (04/23/2025): Followed by Dr. Riky Tanner MD at [facility]. Note from 04/23/25 reviewed. Stress test ordered. -Blood pressure is at goal -Continue lifestyle modifications -Continue current medications -hydrochlorothiazide discontinued by Dr. Tanner 09/2024 Assessment & Plan (07/11/2025 10:56 AM EDT): Followed by Dr. Riky Tanner MD at [facility]. Note from 04/23/25 reviewed. Stress test ordered. -Blood pressure is at goal -Continue lifestyle modifications -Continue current medications -hydrochlorothiazide discontinued by Dr. Tanner 09/2024 Assessment & Plan (01/01/2025 5:24 PM EST): Followed by Dr. Riky Tanner MD at [facility]. Note from 09/2024 reviewed. [...] diet and daily exercise Fibromyalgia 12/12/2018 Overview (07/11/2025): Explained that FM is a type of nerve hypersensitivity and that physical activity is not contraindicated; in fact, it may improve symptoms - Recommended our group acupuncture program, stress reduction, etc. -Encouraged acupuncture clinic 09/15/2023, hand out given -Rx for cane per her request 09/15/2023 -She has 2 [employer] hours per day -currently taking gabapentin and mesalamine. -referred to PT 07/11/25 Assessment & Plan (07/11/2025 10:56 AM EDT): Explained that FM is a type of nerve hypersensitivity and that physical activity is not contraindicated; in fact, it may improve symptoms - Recommended our group acupuncture program, stress reduction, etc. -Encouraged acupuncture clinic 09/15/2023, hand out given -Rx for cane per her request 09/15/2023 -She has 2 [employer] hours per day -currently taking gabapentin and mesalamine. -referred to PT 07/11/25 Orders: Referral to Physical Therapy; Future Assessment & Plan (06/26/2025 3:52 PM EDT): Pt attended and participated in chronic pain group today - good engagement with group model of care - continue to use combination of non-pharmacological modalities to address pain - followup in 2-3 weeks Assessment & Plan (06/13/2025 6:51 AM EDT): Pt attended and participated in chronic pain group today - good engagement with group model of care - continue to use combination of non-pharmacological modalities to address pain - followup in 2-3 weeks Assessment & Plan (05/14/2025 12:31 PM EDT): Pt attended and participated in chronic pain group today - good engagement with group model of care - continue to use combination of non-pharmacological modalities to address pain - followup in 2-3 weeks Assessment & Plan (02/05/2025 2:41 PM EDT): [...] per her request 09/15/2023 -She has 2 [employer] 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 -Encouraged acupuncture clinic 09/15/2023, hand out given -Rx for cane per her request 09/15/2023 -She has 2 [employer] hours per week Assessment & Plan (07/21/2023 1:56 PM EDT): Explained that FM is a type of nerve hypersensitivity and that physical activity is not contraindicated; in fact, it may improve symptoms recommended our group acupuncture program, stress reduction, etc. Obstructive sleep apnea syndrome 12/12/2018 Overview (10/11/2024): Followed by [facility]. Sleep study 10/07/18 reveals severe SILVER. -Currently using CPAP nightly She started 11/05/2018 -seen by CIARA Lepe on 10/09/24 continue CPAP 14 cmH2O. Supplies are though [facility] Assessment & Plan (07/11/2025 10:56 AM EDT): Followed by [facility]. Sleep study 10/07/18 reveals severe SILVER. -Currently using CPAP nightly She started 11/05/2018 -seen by CIARA Lepe on 10/09/24 continue CPAP 14 cmH2O. Supplies are though [facility] Assessment & Plan (01/01/2025 5:24 PM EST): Followed by [facility]. Sleep study 10/07/18 reveals severe SILVER. -Currently using CPAP nightly She started 11/05/2018 -seen by CIARA Lepe on 10/09/24 continue CPAP 14 cmH2O. Supplies are though [facility] Assessment & Plan (07/21/2023 1:56 PM EDT): Followed by [facility]. Sleep study 10/07/18 reveals severe SILVER. -Currently [...] therapist. No SI/HI. Reports going to [facility], where she sees her specialists. Assessment & Plan (07/11/2025 10:56 AM EDT): At visit in 11/2017, we stopped depo, as we presumed was causing depression Depression has not improved, as she is being seen by psychiatrist and therapist. No SI/HI. Reports going to [facility], where she sees her specialists. Assessment & Plan (01/01/2025 5:41 PM EST): At visit in 11/2017, we stopped depo, as we presumed was causing depression Depression has not improved, as she is being seen by psychiatrist and therapist. No SI/HI. Reports going to [facility], where she sees her specialists. Assessment & [...] therapist. No SI/HI. Reports going to [facility], where she sees her specialists. Resolved Problems Problem Noted Date Diagnosed Date Resolved Date Screening mammogram for breast cancer 01/01/2025 07/11/2025 Overview (01/01/2025): -ordered mammogram 01/01/25 Assessment & Plan (01/01/2025 5:42 PM EST): -ordered mammogram 01/01/25 Dietary counseling 12/31/2024 Assessment & Plan (01/01/2025 [...] saturated fat, and sodium. Exercise counseling 12/31/2024 04/12/20 Assessment & Plan (01/01/2025 5:14 PM EST): Exercise Recommendations: At least 150 minutes of moderate-intensity physical activity per week, or an equivalent combination of moderate- and vigorous-intensity activity Vertigo 10/05/2023 07/11/2025 Mild intermittent asthma with exacerbation 12/22/2022 07/21/2023 [...] Backache 09/12/2014 01/01/2025 Asthma 04/20/2012 07/21/2023 Encounters * This document contains information received from the source organization and may not represent a complete record from that organization. Date Type Department Care Team Description 08/02/[address] [facility] [address] [place] [phone] Alvina Mccartney MD 07/30/2025 11:00 AM EDT Office Visit [facility] [address] [place] [address] Kath Soto MD Fibromyalgia (Primary Dx) 07/30/2025 Travel 07/20/[address] [address] Alvina Mccartney MD Durable Medical Equipment (DME Request: Cane) 07/16/2025 11:00 AM EDT Office Visit [address] [phone] Kath Soto MD Fibromyalgia (Primary Dx) 07/16/2025 Travel 07/15/2025 Travel 07/11/2025 10:30 AM EDT Office Visit [address] [address] Alvina Mccartney MD Prediabetes (Primary Dx); Essential hypertension; Hypercholesteremia; Adrenal nodule (CMS/HCC); Obstructive sleep apnea syndrome; Mild intermittent asthma without complication; Fibromyalgia; Low back pain at multiple sites; Chronic pain of left knee; Urinary incontinence, unspecified type; Ingrown hair; Major depression single episode, in partial remission (CMS/HCC); Positive depression screening; Overweight; Dietary counseling; Exercise counseling; Other specified health status 07/11/2025 Travel 07/10/[address] [address] Alvina Mccartney MD chart prep 07/04/2025 Travel 07/03/2025 Patient Outreach [address] [address] Alvina Mccartney MD Pre-visit Planning (SDOH screening was completed on 01/01/2025) 06/26/[address] [facility] [address] [place] [address] Alvina Mccartney MD 06/25/2025 11:00 AM EDT Office Visit [address] [address] Kath Soto MD Fibromyalgia (Primary Dx); Low back pain at multiple sites; Chronic pain of left knee 06/25/2025 Travel 06/22/2025 Travel 06/22/[address] [address] Alvina Mccartney MD Durable Medical Equipment (DME Request: Wheelchair/Pullups) 06/21/2025 Orders Only [facility] External Provider, [facility] Gall bladder polyp (Primary Dx) 06/21/[address] [facility] [address] [place] [address] Alvina Mccartney MD Vitamin D deficiency; Essential hypertension 06/18/2025 11:00 AM EDT Office Visit [facility] [address] [place] [phone] Kath Soto MD Chronic pain of left knee (Primary Dx); Allergic rhinitis, unspecified seasonality, unspecified trigger; Fibromyalgia; Low back pain at multiple sites 06/18/2025 Travel 06/11/2025 11:00 AM EDT Office Visit [facility] [address] [place] [phone] Kath Soto MD Fibromyalgia (Primary Dx) 06/11/2025 Travel 06/04/2025 Travel 05/29/[address] [facility] [address] [place] [address] Alvina Mccartney MD 05/28/2025 11:00 AM EDT Office Visit [facility] [address] [place] [phone] Kath Soto MD Chronic pain of left knee (Primary Dx); Fibromyalgia 05/28/2025 Travel 05/21/2025 11:00 AM EDT Office Visit [facility] [address] [place] [phone] Kath Soto MD Fibromyalgia (Primary Dx); Chronic pain of left knee 05/21/2025 Travel 05/14/2025 11:00 AM EDT Office Visit [facility] [address] [place] [phone] Kath Soto MD Low back pain at multiple sites (Primary Dx); Mild intermittent asthma without complication; Folliculitis; Fibromyalgia 05/14/2025 Travel from Last 3 Months Immunizations Immunization Administration Dates Next Due Hep A, Adult [...] Q2 Not on file 01/01/2025 Comments Unknown Intention Date Recorded No desire to become (finding) 0 01/01/2025 Sex and Gender Information Value Date Recorded Sex Assigned at Female 08/31/2022 10:14 AM EDT Legal Sex Female 10:14 AM EDT Gender Identity Female 08/31/2022 10:14 AM EDT Sexual Orientation Straight 08/31/2022 10 :14 AM EDT Last Filed Vital Signs Vital Sign Reading Time Taken Comments Blood Pressure 138/82 07/11/2025 10:45 AM EDT Pulse 83 07/11/2025 10:17 AM EDT Temperature 36.7 C (98 F) 07/11/2025 10:17 AM EDT Respiratory Rate 16 07/11/2025 10:17 AM EDT Oxygen Saturation 99% 07/11/2025 10:17 AM EDT Inhaled Oxygen Concentration - - Weight 80 kg (176 lb 6.4 oz) 07/11/2025 10:17 AM EDT Height 160 cm (5' 3 ) 07/11/2025 10:17 AM EDT Body Mass Index 31.25 07/11/2025 10:17 AM EDT Plan of Treatment Upcoming Encounters Date Type Department Care Team (Late st Contact Info) Description 08/06/2025 11:45 AM EDT Office Visit [facility] [address] [place] [address] 10/17/2025 10:00 AM EST Office Visit [facility] [address] [place] [address] Marli Valentin, OD [address] [place] [address] Health Maintenance Due Date Last Done Comments CT Colonography 1972 FIT DNA/Cologuard 1972 FIT 1972 FOBT 1972 Sigmoidoscopy 1972 Zoster Vaccines (1 of 2) 2022 COVID-19 Vaccine (3 - season) 2025 02/14/2021, 01/17/2021 Influenza Vaccine (#1) 2025 , 07/26/2023, 08/10/2019, Additional history exists Alcohol/Substance Use Screening 01/01/2026 01/01/2025 SDOH Screening 01/01/2026 01/01/2025 Depression Monitoring 01/08/2026 07/11/2025, 025 Mammogram 02/07/2026 02/07/2025, 04/0 07/2025, 12/01/2023, Additional history exists Diabetes: Hemoglobin A1C 07/11/2026 025, 07/05/2024, 04/25/2024, Additional history exists Disability Screening 07/11/2026 07/11/2025 Tobacco Screening 07/31/2026 07/31/2025 Cervical Cancer Screening 07/26/2028 HPV/Cotest 07/26/2028 07/26/2023, [...] on patient's age to complete this topic Family Planning (PISQ) Discontinued 01/01/2025 Pneumococcal Vaccine: 50+ Years Completed 01/01/2025, 12/12/2018, 10/14/2017 HIB Vaccines Aged Out No longer eligi ble based on patient's age to complete this topic HPV Vaccines Aged Out No longer eligi ble based on patient's age to complete this topic IPV Vaccines Aged Out No longer eligi ble based on patient's age to complete this topic Meningococcal B Vaccine Aged Out No l onger eligible based on patient's age to complete [...] Procedure Name Priority Date/Time Associated Diagnosis Comments POCT GLYCATED HEMOGLOBIN, TOTAL Routine 07/11/2025 10:29 AM EDT Prediabetes POCT GLUCOSE Routine 07/11/2025 10:19 AM EDT Prediabetes US ABDOMEN SHAH W ELASTOGRAPHY Routine 06/21/2025 10:23 AM EDT BI US BREAST LIMITED LEFT Routine 02/07/2025 2:30 PM EDT Breast pain, left Screening mammogram for breast cancer LIPID PANEL, STANDARD Routine 07/08/2024 9:02 AM EDT Essential hypertension HM COLONOSCOPY Routine [...] Recently Relevant to Health Maintenance Results * POCT Hgb A1c (07/11/2025 10:29 AM EDT) Hemoglobin A1C 5.6 4.0 - 5.7 % QC Media Lot # [id number] Lot# Expiration Date [id number] Blood 07/11/2025 10:2 9 AM EDT us Alvina Mccartney MD POINT OF CARE TEST ENTER/E DIT ORDERABLES Final Result * POCT Glucose (07/11/2025 10:19 AM EDT) Glucose Blood, POC 117 60 - 200 mg/dL QC Media Lot # [id number] Lot# Expiration Date [id number] Blood Capillary blood specimen / Unknown 07/11/2025 10:19 AM EDT us Alvina Mccartney MD POINT OF CARE TEST ENTER/E DIT ORDERABLES Final Result * US ABDOMEN SHAH W ELASTOGRAPHY (06/21/2025 10:23 AM EDT) Anatomical Region Laterality Modality Abdomen Ultrasound 06/21/2025 10:2 3 AM EDT Narrative 06/21/2025 10:48 AM EDT [place] [address] Ultrasound Report Signed Patient: Lety Bates MR#: [id number] 1571 : 1970 Acct:[id number] Age/Sex: 55 / F ADM Date: 06/21/25 Loc: HO.US Attending Dr: Alfreda Mendez MD Ordering Physician: Alfreda Mendez MD Date of Service: 06/21/25 Procedure(s): US abdomen shah w elastography Accession Number(s): [id number] cc: Alvina Mccartney MD; Alfreda Mendez MD EXAMINATION: US ABDOMEN LIMITED WITH LIVER ELASTOGRAPHY CLINICAL INFORMATION: Nonalcoholic fatty liver disease disease, epigastric pain, gallbladder polyp COMPARISON: None available. TECHNIQUE: Real-time imaging of the abdominal viscera. Noninvasive ultrasound liver fibrosis assessment is performed using Gigi ElastPQ point quantification shear wave elastography (pSWE) with a 5 MHz transducer. Multiple elastography samples are obtained. FINDINGS: PANCREAS: The visualized pancreatic head and body are normal in appearance. The remainder of the pancreas is obscured from visualization by the overlying bowel gas. LIVER: The liver demonstrates normal size, contour with minimally coarse echogenicity. No focal lesion or intrahepatic biliary duct dilatation. The right lobe measures 17 cm in length. The left lobe measures 11 cm in length. Shear wave elastography provides a median stiffness of 1.4 m/s (reference: normal median stiffness is 0.81 - 1.22 m/s). The IQR/median stiffness to assess sampling precision is 0.2 (reference: optimal IQR/median stiffness is under 0.3). GALLBLADDER: The gallbladder is physiologically distended without wall thickening. Again noted is an echogenic 4 mm nodule without posterior acoustic shadowing consistent with a polyp. COMMON BILE DUCT: Normal in caliber measuring 0.6 cm in diameter. RIGHT KIDNEY: No hydronephrosis. No renal calculi or focal parenchymal lesions. The kidney measures 10.5 cm in maximum dimension. FREE FLUID: None seen. US/US abdomen shah w elastography IMPRESSION: Stable gallbladder polyp. Mild coarsening of liver echogenicity wrist question of underlying mild hepatocellular disease or fatty changes. Elastography: In the absence of other known clinical signs, rules out compensated advanced chronic liver disease. Electronically signed by: Dennis Stahl MD 06/21/2025 10:45 AM EDT Dictated By: Dennis Stahl MD Signed By: <Electronically signed by Dennis Stahl MD in OV> 06/21/25 1045 DD/ 1023 TD/TT: 06/21/25 1033 Pattern Fitter: Procedure Note Donotuseinterpreter, Image - 06/21/[address] [address] Ultrasound Report Signed Patient: Luann Bates#: [id number] 1571 : 1970Acct:[id number] Age/Sex: 55 / FADM Date: 06/21/25 Loc: HO.US Attending Dr: Alfreda Mendez MD Ordering Physician: Alfreda Mendez MD Date of Service: 06/21/25 Procedure(s): US abdomen shah w elastography Accession Number(s): [id number] cc: Alvina Mccartney MD; Alfread Mendez MD EXAMINATION: US ABDOMEN LIMITED WITH LIVER ELASTOGRAPHY CLINICAL INFORMATION: Nonalcoholic fatty liver disease disease, epigastric pain, gallbladder polyp COMPARISON: None available. TECHNIQUE: Real-time imaging of the abdominal viscera. Noninvasive ultrasound liver fibrosis assessment is performed using Gigi ElastPQ point quantification shear wave elastography (pSWE) with a 5 MHz transducer. Multiple elastography samples are obtained. FINDINGS: PANCREAS: The visualized pancreatic head and body are normal in appearance. The remainder of the pancreas is obscured from visualization by the overlying bowel gas. LIVER: The liver demonstrates normal size, contour with minimally coarse echogenicity. No focal lesion or intrahepatic biliary duct dilatation. The right lobe measures 17 cm in length. The left lobe measures 11 cm in length. Shear wave elastography provides a median stiffness of 1.4 m/s (reference: normal median stiffness is 0.81 - 1.22 m/s). The IQR/median stiffness to assess sampling precision is 0.2 (reference: optimal IQR/median stiffness is under 0.3). GALLBLADDER: The gallbladder is physiologically distended without wall thickening. Again noted is an echogenic 4 mm nodule without posterior acoustic shadowing consistent with a polyp. COMMON BILE DUCT: Normal in caliber measuring 0.6 cm in diameter. RIGHT KIDNEY: No hydronephrosis. No renal calculi or focal parenchymal lesions. The kidney measures 10.5 cm in maximum dimension. FREE FLUID: None seen. US/US abdomen shah w elastography IMPRESSION: Stable gallbladder polyp. Mild coarsening of liver echogenicity wrist question of underlying mild hepatocellular disease or fatty changes. Elastography: In the absence of other known clinical signs, rules out compensated advanced chronic liver disease. Electronically signed by: Dennis Stahl MD 06/21/2025 10:45 AM EDT Dictated By: Dennis Stahl MD Signed By: <Electronically signed by Dennis Stahl MD in OV> 06/21/25 1045 DD/ 1023 TD/TT: 06/21/25 1033 Pattern Fitter: us [facility] External Provider IMG US PROCEDURES Final Result * BI US Breast Limited Left (02/07/2025 2:30 PM EDT) Anatomical Region Laterality Modality Breast Left Ultrasound 02/07/2025 2:30 PM EDT Narrative 02/07/2025 2:[address] PM [address]T [address] [place] [address] Ultrasound Report Signed Patient: Lety Bates MR#: [id number] 1571 : 1970 Acct:[id number] Age/Sex: 54 / F ADM Date: 02/07/25 Loc: HO.MAMMO Attending Dr: Alvina Mccartney MD Ordering Physician: Alvina Mccartney MD Date of Service: 02/07/25 Procedure(s): US breast LT limited mamm only Accession Number(s): [id number] cc: Alvina Mccartney MD EXAMINATION: MM DIAGNOSTIC [...] 02/07/25 1455 DD/ 1430 TD/TT: 02/07/25 1444 Pattern Fitter: Procedure Note Donotuseinterpreter, Image - 02/07/2025 [facility] [address] [place], [place] [address] Ultrasound Report Signed Patient: Leidy BatesnMR#: [id number] 1571 : 1970Acct:[id number] Age/Sex: 54 / FADM Date: 02/07/25 Loc: HO.MAMMO Attending Dr: Alvina Mccartney MD Ordering Physician: Alvina Mccartney MD Date of Service: 02/07/25 Procedure(s): US breast LT limited mamm only Accession Number(s): [id number] cc: Alvina Mccartney MD EXAMINATION: MM DIAGNOSTIC [...] 02/07/25 1455 DD/ 1430 TD/TT: 02/07/25 1444 Pattern Fitter: us Alvina Mccartney MD IMG US PROCEDURES Final Re sult * (ABNORMAL) Lipid Panel, Standard (07/08/2024 9:02 AM EDT) Triglycerides 101 <150 mg/dL [facility] Comment:Desirable Triglyceri de: less than 150 mg/dLBorderline High Triglyceride 150-199 mg/dLHigh Triglyceride: 200-499 mg/dLVery High Triglyceride: greater than or equal to 5OO mg/dL Cholesterol 184 <200 mg/dL [facility] Comment:Desirable Cholestero l: less than 200 mg/dLBorderline High Cholesterol: 200-239 mg/dLHigh Cholesterol: greater than 239 mg/dL LDL Cholesterol Calculated 128(H) <100 mg/dL [facility] Comment:Desirable LDL: less than 100 mg/dLNear Optimal/Above Optimal LDL: 110- 129 mg/dLBorderline High LDL: 130-159 mg/dLHigh LDL: 160-189 mg/dLVery High LDL: greater than or equal to 190 mg/dL HDL Cholesterol 36(L) >40 mg/dL [facility] Comment:Desirable HDL: great er than 40 mg/dL Note: This HDL assay may give artificially low results in patients with liver disease. Blood Venous blood specimen / Unknown 07/08/2024 9:02 AM EDT 07/08/2024 9:02 AM EDT Alvina Mccartney MD LAB BLOOD ORDERABLES Final Result Performing Organization Address City/[facility]/ZIP Co de Phone Number [facility] [address] [place] [address] [phone] * Hm Colonoscopy (04/04/2024) Pathologist [facility] Colonoscopy Normal Normal 04/04/2024 [facility] Provider MD HEALTH MAINTENANCE Final Result * Hepatitis C Ab (07/29/2023 9:23 AM EDT) [facility] Hepatitis C Antibody Nonreactive Nonreactive [facility] Comment:Antibodies to HCV no t detected; does not exclude early acuteHCV infection. Blood 07/29/2023 9:23 AM EDT 07/29/2023 11:00 AM EDT Alvina Mccartney MD LAB BLOOD ORDERABLES Final Result Performing Organization Address City/[facility]/ZIP Co de Phone Number [facility] [address] [place] [phone] * HPV mRNA E6/E7 w/Reflex to HPV Genotypes 16, 18/45 (07/26/2023 10:57 AM EDT) [facility] HPV nRNA E6/E7 Not Detected Not Detected [facility] Comment:Methodology: Transcr iption-Mediated AmplificationThis assay detects E6/E7 viral messenger RNA (mRNA) from 14high-risk HPV types (16,18,31,33,35,39,45,51,52,56,58,59,66,68).Cervical sources are required for HPV testing.If a vaginal source from a patient who has had atotal hysterectomy with removal of cervix wassubmitted, please contact the testing laboratoryfor alternative testing options.For additional information, please refer tohttp://education.[employer]/faq/LRR566c0(This link if provided for information/educational purposes only.)THIS TEST WAS PERFORMED AT:[employer] [place] [phone] CALIX MD HPV mRNA E6/E7 TNP [facility] HPV 16 RNA TNP [facility] HPV 18/45 RNA TNP [facility] 07/26/2023 10:5 7 AM EDT 07/27/2023 9:00 AM EDT us Alvina Mccartney MD LAB CYTOLOGY ORDERABLES Fi nal Result [facility] [address] [place] [address] [phone] * Pap Smear (07/26/2023 10:57 AM EDT) 07/26/2023 10:5 7 AM EDT 07/27/2023 9:00 AM EDT Narrative [facility] - 08/02/2023 1:35 PM EDT ----- ------- Name: Lety Bates Age/Sex: 53/F : 1970 Unit#: [id number] Attend Dr: Alvina Mccartney MD Re07/26/23 Status: DEP REF Location: HO.HHCLNP Disch: ----- ------- SPEC : [id number] RECD: 07/27/23 STATUS: CHRISTINA LACY NUM: [id number] AMANDA: 07/26/23 [facility] DR: Alvina Mccartney MD ENTERED: 07/27/23 SP TYPE: Pap Smr OTHR DR: ORDERED: Pap Smear Interpretation Satisfactory for evaluation. Negative for intraepithelial lesion or malignancy. HPV mRNA E6/E7: NOT DETECTED This assay detects E6/E7 viral messenger RNA (mRNA) from 14 high-risk HPV types (16, 18, 31, 33, 35, 39, 45, 51, 52, 56, 58, 59, 66, 68) HPV testing performed by [employer], [place], [place]. See reference laboratory pion of the EMR for entire report. Clinical Information LMP: Unknown date Previous PAP test: Unknown date/findings Material Received ThinPrep-Vaginal/Cervical ----- ------- Signed (signature on file) JUSTIN Arambula (ASCP) 08/02/23 1335 ----- ------- END OF REPORT Alvina Mccartney MD LAB CYTOLOGY ORDERABLES Fi nal Result [facility] [address] [place] [phone] * HIV 1/2 Antigen and Antibody (01/21/2021) HIV Ag/Ab Nonreactive us Historical Provider HEALTH MAINTENANCE Final Result from Last 3 Months or Most Recently Relevant to Health Maintenance Insurance [facility] DUAL COMPLETE Advance Directives Documents on File Type Date Recorded Patient Lab Analyst Expl anation Advance Directives and Living Will 07/07/2024 1:01 PM Health Care Proxy Care Teams Cnc Specialist Relationship Specialty Start Date End Date Bib, MD Alvina [address] [place] [address] PCP - General Family Medicine 11/01/18 Riky Tanner [address] 3rd Floor [place], [place] Cardiology 12/3/24 Mariella Mcdonnell [address] [phone] Sleep Medicine 10/11/24 Jina Vences MD [address] [place] [address] Endocrinology 11/05/24 Shadia Morocho PA [address] [place] [address] Orthopaedic Surgery 11/07/24 Kendall Bates MD [address] [place] [address] General Surgery 11/28/24 Sara Pritchett [address] [place] [address] Pain Medicine 01/16/25 Alfreda Mendez MD [address] [place] [address] Gastroenterology 05/03/25
== END 2025-08-06 08:42 | disposition home or self-care (01) ==
LOC: HO.CT 08:41
PROVIDERS: PCP Family Medicine; Visit Provider Student in an Organized Health Care Education/Training Program
DX: E27.8 Other specified disorders of adrenal gland (principal)
CPT/HCPCS: 74170

== ENCOUNTER → 2025-08-06 08:42 | Outpatient (BNV) | payer OTHER, SELFPAY | PROVIDERS: PCP Family Medicine; Visit Provider Radiology Diagnostic Radiology | DX: E27.8 Other specified disorders of adrenal gland (principal) | CPT/HCPCS: 74170 ==

== ENCOUNTER 2025-08-13 11:35 | Outpatient (REF) | payer OTHER, SELFPAY ==
--- NOTE | ~2025-08-13 | XR_ITS ---
EXAMINATION: XR HAND 3 OR MORE VIEWS RIGHT HISTORY: fall and swollen joint COMPARISON: There are no prior studies available for comparison. FINDINGS: Four views of the right hand are submitted. Osseous mineralization is normal. There is no fracture or dislocation. The joint spaces are preserved. The soft tissues are unremarkable. XR/XR hand RT min 3V IMPRESSION: Unremarkable examination of the right hand. Electronically signed by: Elder Esparza MD 08/14/2025 07:12 AM EDT
--- OUTSIDE RECORDS SUMMARY | 2025-08-13 11:38 | XMS_ITS | Encounter Summary ---
Author Organization [email or web address] Address [address] [facility] 7t [place] [address] Care Team Providers Care Shuttle Inspector Name Role Phone Alvina Mccartney MD Primary Care Provider [phone] Riky Tanner Unavailable Mariella Mcdonnell Unavailable Jina Vences MD Unavailable Shadia Morocho Unavailable Kendall Bates MD Unavailable [phone] Sara Pritchett Unavailable Alfreda Mendez MD Unavailable [phone] Encounter Details Date Type Department Care Team (Late st Contact Info) Description 04/14/2024 Abstract [facility] MEDICINE [address] [place], [place] [phone] Hayley Briscoe [place] Social History Tobacco Use [...] Care Team (Late st Contact Info) Description 10/17/2025 10:00 AM EST Office Visit [facility] OPTOMETRY [address] [place] [address] Homero, Marli, OD [address] [place] [address] documented as of this encounter Procedures Procedure [...] documented as of this encounter Care Teams Shuttle Inspector Relationship Specialty Start Date End Date Alvina Mccartney MD [address] [place] [address] PCP - General Family Medicine 11/01/18 Riky Tanner [address] [place] [address] Cardiology 10/03/24 Mariella Mcdonnell [address] [address] Sleep Medicine 10/11/24 Jina Vences MD [address] [place] [address] Endocrinology 11/05/24 Shadia Morocho PA [address] [place] [address] Orthopaedic Surgery 11/07/24 Kendall Bates MD [address] 3rd [place] [address] General Surgery 11/28/24 Sara Pritchett [address] [place] [address] Pain Medicine 01/16/25 Alfreda Mendez MD [address] [place] [address] Gastroenterology 05/03/25 documented as of this encounter
--- OUTSIDE RECORDS SUMMARY | 2025-08-13 11:38 | XMS_ITS | Encounter Summary ---
Author Organization [employer] Address [address] [facility] 7t [place] [address] Care Team Providers Care Babysitter Name Role Phone Alvina Mccartney MD Primary Care Provider [phone] Riky Tanner Unavailable Mariella Mcdonnell Unavailable [phone] Jina Vences MD Unavailable Shadia Morocho Unavailable Kendall Bates MD Unavailable Sara Pritchett Unavailable Alfreda Mendez MD Unavailable [phone] Encounter Details Date Type Department Care Team (Latest Contact Info) Description 08/13/2025 Travel Social History Tobacco Use Types Packs/Day [...] Description 10/17/2025 10:00 AM EST Office Visit [facility] OPTOMETRY [address] [place], [place] [phone] HomeroMarli hernández, OD [address] [place] [address] documented as of this encounter Visit Diagnoses Not on filedocumented in this encounter Additional Health Concerns Assessment Noted Time PHQ-9 Depression Total Score: 25 025 10:29 AM EDT documented as of this encounter Care Teams Babysitter Relationship Specialty Start Date End Date Alvina Mccartney MD [address] [place] [address] PCP - General Family Medicine 11/01/18 Riky Tanner [address] [place] [address] 3rd [place] [address] Cardiology 10/03/24 Mariella Mcdonnell [address] [place] [phone] Sleep Medicine 10/11/24 Jina Vences MD [address] [place] [address] Endocrinology 11/05/24 Shadia Morocho PA [address] [place] [address] Orthopaedic Surgery 11/07/24 Kendall Bates MD [address]rd [place] [address] General Surgery 11/28/24 Sara Pritchett [address] [place] [address] Pain Medicine 01/16/25 Alfreda Mendez MD [address] 3rd [place] [address] Gastroenterology 05/03/25 documented as of this encounter
--- OUTSIDE RECORDS SUMMARY | 2025-08-13 11:38 | XMS_ITS | Encounter Summary ---
Author Organization [employer] Address [address] [facility] 7t [place] [address] Care Team Providers Care Contemporary Or Modern Dancer Name Role Phone Alvina Mccartney MD Primary Care Provider [phone] Riky Tanner Unavailable Mariella Mcdonnell Unavailable [phone] Jina Vences MD Unavailable Shadia Morocho Unavailable Kendall Bates MD Unavailable Sara Pritchett Unavailable Alfreda Mendez MD Unavailable [phone] Reason for Visit * Reason Comments Med Refill Encounter Details Date Type Department Care Team (Late st Contact Info) Description 12/01/[address] [facility] MEDICINE [address] [place], [place] [phone] Alvina Mccartney MD [address] [place], [place] [phone] Pain Social History Tobacco Use Types Packs/Day [...] Description 10/17/2025 10:00 AM EST Office Visit [facility] OPTOMETRY [address] [place] [address] Homero, Marli, OD [address] [place] [address] documented as of this encounter Visit Diagnoses Diagnosis Pain Generalized pain documented in this encounter Additional Health Concerns Assessment Noted Time PHQ-9 Depression Total Score: 8 07/26/20 23 10:55 AM EDT documented as of this encounter Care Teams Contemporary Or Modern Dancer Relationship Specialty Start Date End Date Alvina Mccartney MD [address] [place] [address] PCP - General Family Medicine 11/01/18 Riky Tanner [address]rd [place] [address] Cardiology 10/03/24 Mariella Mcdonnell [address] [address] Sleep Medicine 10/11/24 Jina Vences MD [address] [place] [address] Endocrinology 11/05/24 Shadia Morocho PA [address] [place] [address] Orthopaedic Surgery 11/07/24 Kendall Bates MD [address]rd [place] [address] General Surgery 11/28/24 Sara Pritchett [address] [place] [address] Pain Medicine 01/16/25 Alfreda Mendez MD [address]rd [place] [address] Gastroenterology 05/03/25 documented as of this encounter
--- OUTSIDE RECORDS SUMMARY | 2025-08-13 11:39 | XMS_ITS | Encounter Summary ---
Author Organization [employer] Address [address] [facility] 7t [place] [address] Care Team Providers Care Mainspring Winder Name Role Phone Alvina Mccartney MD Primary Care Provider [phone] Riky Tanner Unavailable Mariella Mcdonnell Unavailable Jina Vences MD Unavailable Shadia Morocho Unavailable Kendall Bates MD Unavailable [phone] Sara Pritchett Unavailable Alfreda Mendez MD Unavailable [phone] Reason for Visit * Reason Comments Med Refill Encounter Details Date Type Department Care Team (Late st Contact Info) Description 01/18/2025 Refill [facility] MEDICINE [address] [place], [place] [phone] Alvina Mccartney MD [address] [place], [place] [phone] Mild intermittent asthma without complication Social History [...] Description 10/17/2025 10:00 AM EST Office Visit [facility] OPTOMETRY [address] [place] [address] Homero, Marli, OD [address] [place] [address] documented as of this encounter Visit Diagnoses Diagnosis Mild intermittent asthma without complication documented in this encounter Additional Health Concerns Assessment Noted Time PHQ-9 Depression Total Score: 17 025 9:49 AM EST documented as of this encounter Care Teams Mainspring Winder Relationship Specialty Start Date End Date Alvina Mccartney MD [address] [place] [address] PCP - General Family Medicine 11/01/18 Riky Tanner [address]rd [place] [address] Cardiology 10/03/24 Mariella Mcdonnell [address] [address] Sleep Medicine 10/11/24 Jina Vences MD [address] [place] [address] Endocrinology 11/05/24 Shadia Morocho PA [address] [place] [address] Orthopaedic Surgery 11/07/24 Kendall Bates MD [address] [place] [address] General Surgery 11/28/24 Sara Pritchett [address] [place] [address] Pain Medicine 01/16/25 Alfreda Mendez MD [address] [place] [address] Gastroenterology 05/03/25 documented as of this encounter
--- OUTSIDE RECORDS SUMMARY | 2025-08-13 11:39 | XMS_ITS | Encounter Summary ---
Author Organization [employer] Address [address] [facility] 7t [place] [address] Care Team Providers Care Rn Bariatric Name Role Phone Alvina Mccartney MD Primary Care Provider [phone] Riky Tanner Unavailable Mariella Mcdonnell Unavailable Jina Vences MD Unavailable Shadia Morocho Unavailable Kendall Bates MD Unavailable Sara Pritchett Unavailable Alfreda Mendez MD Unavailable [phone] Reason for Visit * Reason Comments Med Refill Encounter Details Date Type Department Care Team (Late st Contact Info) Description 06/05/2024 Refill [facility] [address] [place], [place] [phone] Alvina Mccartney MD [address] [place], [place] [phone] Pain Social History Tobacco Use Types Packs/Day [...] Description 10/17/2025 10:00 AM EST Office Visit [facility] [address] [place] [address] Homero, Marli, OD [address] [place] [address] documented as of this encounter Visit Diagnoses Diagnosis Pain Generalized pain documented in this encounter Additional Health Concerns Assessment Noted Time PHQ-9 Depression Total Score: 8 07/26/20 23 10:55 AM EDT documented as of this encounter Care Teams Rn Bariatric Relationship Specialty Start Date End Date Alvina Mccartney MD [address] [place] [address] PCP - General Family Medicine 11/01/18 Riky Tanner [address] 3rd [place] [address] Cardiology 10/03/24 Mariella Mcdonnell [address] [address] Sleep Medicine 10/11/24 Jina Vences MD [address] [place] [address] Endocrinology 11/05/24 Shadia Morocho PA [address] [place] [address] Orthopaedic Surgery 11/07/24 Kendall Bates MD [address] 3rd [place] [address] General Surgery 11/28/24 Sara Pritchett [address] [place] [address] Pain Medicine 01/16/25 Alfreda Mendez MD [address] 3rd [place] [address] Gastroenterology 05/03/25 documented as of this encounter
--- OUTSIDE RECORDS SUMMARY | 2025-08-13 11:39 | XMS_ITS ---
Author Name Natalee Avilez NP Address [address] [place] [address] Phone [phone] [facility] Care Team Providers Care Floor Covering Printer Assistant Name Role Phone Natalee Avilez Unavailable [phone] Unavailable Unavailable Unavailable VAL DOROTHEA Unavailable [phone] Carina Baird Unavailable Unavailable Reason for Referral [...] health professional:/ Transfer member to [facility] services/ Hydroxyzine (Vistaril) 25mg PO q6h PRN anxiety/ Remind member of personal goal:/ Encourage use of home medication:/ Limit extra stimulation Encounters Encounters Type Facility Date of Service Diagnosis/Co mplaint New patient, 30-44min 1 stable chronic or 2 minor; add modifier 95 for video, modifier 93 for phone [facility], ([place]) 10/05/2023 Major depressive disorder, recurrent, mildInsomnia, unspecifiedGeneralized anxiety disorderGastro-esophageal reflux disease without esophagitisDizziness and giddinessEssential (primary) hypertensionNeuralgia and neuritis, unspecifiedVitamin D deficiency, unspecifiedMild intermittent asthma, uncomplicated New patient, 30-44min 1 stable chronic or 2 minor; add modifier 95 for video, modifier 93 for [facility], ([place] 10/05/2023 New patient, 30-44min 1 stable chronic or 2 minor; add modifier 95 for video, modifier 93 for [facility] 10/05/2023 New patient, 30-44min 1 stable chronic or 2 minor; add modifier 95 for video, modifier 93 for [facility], ([place] 10/05/2023 New patient, 30-44min 1 stable chronic or 2 minor; add modifier 95 for video, modifier 93 for phone [facility], ([place] 10/05/2023 New patient, 30-44min 1 stable chronic or 2 minor; add modifier 95 for video, modifier 93 for phone [facility], ([place]) 10/05/2023 Estab. patient 30-39min; chronic exacerbation, 2 stable chronic or 1 acute illness add add modifier 95 for video, (do not use for phone, instead use 92394-97) [facility], ([place]) 04/25/2024 Major depressive disorder, recurrent, mildInsomnia, unspecifiedGeneralized anxiety disorderGastro-esophageal reflux disease without esophagitisDizziness and giddinessEssential (primary) hypertensionNeuralgia and neuritis, unspecifiedVitamin D deficiency, unspecifiedMild intermittent asthma, uncomplicatedOther problems related to medical facilities and other health care Estab. patient 30-39min; chronic exacerbation, 2 stable chronic or 1 acute illness add add modifier 95 for video, (do not use for phone, instead use 85527-90) [facility], ([place]) 04/25/2024 Estab. patient 30-39min; chronic exacerbation, 2 stable chronic or 1 acute illness add add modifier 95 for video, (do not use for phone, instead use 03485-20) [facility] ([place] 04[place]25/20[place] Estab. patient 30-39min; chronic exacerbation, 2 stable chronic or 1 acute illness add add modifier 95 for video, (do not use for phone, instead use 30000-36) [facility] 04[place]25/20[place] Estab. patient 30-39min; chronic exacerbation, 2 stable chronic or 1 acute illness add add modifier 95 for video, (do not use for phone, instead use 76363-49) [facility] 04/25/20[place] Estab. patient 30-39min; chronic exacerbation, 2 stable chronic or 1 acute illness add add modifier 95 for video, (do not use for phone, instead use 21930-61) [facility], ([place] 04/25/2024 Estab. patient 30-39min; chronic exacerbation, 2 stable chronic or 1 acute illness add add modifier 95 for video, (do not use for phone, instead use 84875-20) [facility] ([place] 04/25/2024 Estab. patient 30-39min; chronic exacerbation, 2 stable chronic or 1 acute illness add add modifier 95 for video, (do not use for phone, instead use 24503-61) [facility] ([place] 04/25/2024 Estab. patient 30-39min; chronic exacerbation, 2 stable chronic or 1 acute illness add add modifier 95 for video, (do not use for phone, instead use 60942-95) [facility] ([place]) 04/25/2024 Unlisted special service; to be used for medical record reviews and reporting CPTII codes (1111F, etc) [facility]) 09/04/2024 Other specified health statu s Unlisted special service; to be used for medical record reviews and reporting CPTII codes (1111F, etc) [facility]) 09/04/2024 Unlisted special service; to be used for medical record reviews and reporting CPTII codes (1111F, etc) [facility] ([place]) 09/04/2024 Vital Signs Date of Collection Vitals [...] tive Time Current Smoking Status Never smoker 2025-08-01 3 Sex Female History of Procedures Procedures Service Procedure code Service date Servicing provider Phone# New patient, 30-44min 1 stable chronic or 2 minor; add modifier 95 for video, modifier 93 for phone 91746 2023-10-05 No Data Available No Data Available [...] (do not use for phone, instead use 71393-29) 60540 2024-04-25 No Data Available No Data Availa [...] reviews and reporting CPTII codes (1111F, etc) 09113 2024-09-04 No Data Available No Data Availa ble SBP < 130 (3074F) 3074F 2024-09-04 No Data Available No Data Available DBP <80 (3078F) 3078F 2024-09-04 No Data Available No Data Available Functional Status Functional Category Effective Dates COPIER REPAIR TECHNICIAN assists with cooking, cl eaning, laundry, showering [...] mental health professional:/ Transfer member to [address] [place] [address]/ Hydroxyzine (Vistaril) 25mg PO q6h PRN anxiety/ [...]
--- OUTSIDE RECORDS SUMMARY | 2025-08-13 11:39 | XMS_ITS | Encounter Summary ---
Author Organization [employer] Address [address] [facility] 7t [place] [address] Care Team Providers Care Plastics Heat Welder Name Role Phone Alvina Mccartney MD Primary Care Provider [phone] Riky Tanner Unavailable Mariella Mcdonnell Unavailable Jina Vences MD Unavailable Shadia Morocho Unavailable Kendall Bates MD Unavailable Sara Pritchett Unavailable Alfreda Mendez MD Unavailable [phone] Encounter Details Date Type Department Care Team (Late st Contact Info) Description 04/22/2023 Orders Only [facility] [address] [place], [place] [phone] Alvina Mccartney MD [address] [place], [place] [phone] Dizzy (Primary Dx) Social History Tobacco Use [...] Description 10/17/2025 10:00 AM EST Office Visit [facility] [address] [place] [address] Homero, Marli, OD [address] [place] [address] documented as of this encounter Visit Diagnoses Diagnosis Dizzy- Primary Dizziness and giddiness documented in this encounter Care Teams Plastics Heat Welder Relationship Specialty Start Date End Date Alvina Mccartney MD [address] [place] [address] PCP - General Family Medicine 11/01/18 Riky Tanner [address] [place] [address] Cardiology 10/03/24 Mariella Mcdonnell [address] [phone] Sleep Medicine 10/11/24 Jina Vences MD [address] [place] [address] Endocrinology 11/05/24 Shadia Morocho PA [address] [place] [address] Orthopaedic Surgery 11/07/24 Kendall Bates MD [address]rd [place] [address] General Surgery 11/28/24 Sara Pritchett [address] [place] [address] Pain Medicine 01/16/25 Alfreda Mendez MD [address] [facility] [address]rd [place] [address] Gastroenterology 05/03/25 documented as of this encounter
--- OUTSIDE RECORDS SUMMARY | 2025-08-13 11:39 | XMS_ITS | Encounter Summary ---
Author Organization [employer] Address [address] [facility] 7t [place] [address] Care Team Providers Care Special Systems Technician Name Role Phone Alvina Mccartney MD Primary Care Provider [phone] Riky Tanner Unavailable Mariella Mcdonnell Unavailable Jina Vences MD Unavailable Shadia Morocho Unavailable Kendall Bates MD Unavailable [phone] Sara Pritchett Unavailable Alfreda Mendez MD Unavailable [phone] Encounter Details Date Type Department Care Team (Late st Contact Info) Description 12/03/2022 Abstract [facility] [address] [place], [place] [phone] Alvina Mccartney MD [address] [place], [place] [phone] Social History Tobacco Use Types Packs/Day Years [...] Description 10/17/2025 10:00 AM EST Office Visit [facility] [address] [place] [address] Marli Valentin, OD [address] [place] [address] documented as of this encounter Procedures Procedure Name Priority Date/Time Associated Diagnosis Comments MAMMOGRAPHY Routine 11/16/2021 COLONOSCOPY Routine 08/21/2019 documented in this encounter Results * Mammography (11/16/2021) Mammogram BIRADS 2 Anatomical Region Laterality Modality Other Historical Provider HEALTH MAINTENANCE Final Result * Colonoscopy (08/21/2019) Colonoscopy hyperplastic polyp Dr. Mendez Historical Provider HEALTH MAINTENANCE Final Result documented in this encounter Visit Diagnoses Not on filedocumented in this encounter Care Teams Special Systems Technician Relationship Specialty Start Date End Date Alvina Mccartney MD [address] [place] [address] PCP - General Family Medicine 11/01/18 Riky Tanner [address]rd [place] [address] Cardiology 10/03/24 Mariella Mcdonnell [address] [address] Sleep Medicine 10/11/24 J[place] [address] Endocrinology 11/05/24 Shadia Morocho PA [address] [place] [address] Orthopaedic Surgery 11/07/24 Kendall Bates MD [address] [place] [address] General Surgery 11/28/24 Sara Pritchett [address] [place] [address] Pain Medicine 01/16/25 Alfreda Mendez MD [address] [place] [address] Gastroenterology 05/03/25 documented as of this encounter
--- OUTSIDE RECORDS SUMMARY | 2025-08-13 11:39 | XMS_ITS | Encounter Summary ---
Author Organization [employer] Address [address] [facility] 7t [place] [address] Care Team Providers Care Fitness And Wellness Coordinator Name Role Phone Alvina Mccartney MD Primary Care Provider [phone] Riky Tanner Unavailable Mariella Mcdonnell Unavailable [phone] Jina Vences MD Unavailable hSadia Morocho Unavailable Kendall Bates MD Unavailable Sara Pritchett Unavailable Alfreda Mendez MD Unavailable [phone] Encounter Details Date Type Department Care Team (Late st Contact Info) Description 10/16/2022 Orders Only [facility] [address] [place], [place] [phone] Anel Espinoza, DAVID Social History Tobacco Use [...] Description 10/17/2025 10:00 AM EST Office Visit [facility] [address] [place], [place] [phone] Marli Valentin, OD [address] [place] [address] documented as of this encounter Visit Diagnoses Not on filedocumented in this encounter Care Teams Fitness And Wellness Coordinator Relationship Specialty Start Date End Date Alvina Mccartney MD [address] [facility] [place] [address] PCP - General Family Medicine 11/01/18 Riky Tanner [address] [place] [address] Cardiology 10/03/24 Mariella Mcdonnell [address] [phone] Sleep Medicine 10/11/24 J[place] [address] Endocrinology 11/05/24 Shadia Morocho PA [address] [place] [address] Orthopaedic Surgery 11/07/24 Kendall Bates MD [address] [address] General Surgery 11/28/24 Sara Pritchett [address] [place] [address] Pain Medicine 01/16/25 Alfreda Mendez MD [address] [place] [address] Gastroenterology 05/03/25 documented as of this encounter
--- OUTSIDE RECORDS SUMMARY | 2025-08-13 11:39 | XMS_ITS | Clinical Summary ---
Author Organization [employer] Address [address] [place] [address] Care Team Providers Care Interior Specialist Name Role Phone Alvina Mccartney MD Primary Care Provider [phone] Riky Tanner Unavailable Mariella Mcdonnell Unavailable [phone] Jina Vences MD Unavailable Shadia Morocho Unavailable Kendall Bates MD Unavailable [phone] Sara Pritchett Unavailable Alfreda Mendez MD Unavailable [phone] Allergies No known active allergies Medications * [...] (07/11/2025): -seen by Ariel Morocho PA-C of [facility] 11/07/23 -MR/MR knee LT [...] EDT): -seen by Ariel Morocho PA-C of [facility] 11/07/23 -MR/MR knee LT [...] EST): -seen by Ariel Morocho PA-C of [facility] 11/07/23 -MR/MR knee LT [...] prescribe lidocaine patches to reevaluate. -seen by [facility] 01/02/25 given left knee [...] describing symptoms of lightheadedness when turning head [id number] which sounds more like vertigo. No clear [...] D deficiency 10/05/2023 Adrenal nodule 09/15/2023 Overview (08/06/2025): Incidental noted on ER CT CT abdomen [...] CT with the adrenal washout in 08/2025 -CT 08/06/25 CT/CT adrenal wo/w IV con IMPRESSION: 9 mm left adrenal mass which is indeterminate for adenoma. However, the nodule has been stable since at least 09/24/2021, highly suggestive of benignity. Assessment & Plan (07/11/2025 10:56 AM EDT): [...] Plan (07/11/2025 10:56 AM EDT): -referred to Uro/GRADES 7 AND 8 VISITING TEACHER for further recommendations and evaluations. 07/11/25 Orders: Referral to Urogynecology; Future Assessment & Plan (07/26/2023 10:41 AM EDT): Referral to Urology done 07/26/2023. Other specified health status 07/21/2023 Overview (07/11/2025): -next comprehensive annual evaluation due after 07/05/25 -eye care facilitated by [facility] -dental home is encouraged -Health care proxy given and filed 07/05/24 Assessment & Plan (07/11/2025 10:56 AM EDT): -next comprehensive annual evaluation due after 07/05/25 -eye care facilitated by [facility] -dental home is encouraged -Health [...] 9:42 PM EST): -Previously established with [facility], last available consult note from 2018. -Referral to re-establish care with [facility] Essential hypertension 12/12/2018 Overview (04/23/2025): Followed by Dr. Riky Tanner MD at [facility]. Note from 04/23/25 reviewed. Stress test ordered. -Blood pressure is at goal -Continue lifestyle modifications -Continue current medications -hydrochlorothiazide discontinued by Dr. Tanner 09/2024 Assessment & Plan (07/11/2025 10:56 AM EDT): Followed by Dr. Riky Tanner MD at [facility]. Note from 04/23/25 reviewed. Stress test ordered. -Blood pressure is at goal -Continue lifestyle modifications -Continue current medications -hydrochlorothiazide discontinued by Dr. Tanner 09/2024 Assessment & Plan (01/01/2025 5:24 PM EST): Followed by Dr. Riky Tanner MD at [facility]. 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 Obstructive sleep apnea syndrome 12/12/2018 Overview (10/11/2024): Followed by [facility]. Sleep study 10/07/18 reveals severe SILVER. -Currently using CPAP nightly She started 11/05/2018 -seen by CIARA Lepe on 10/09/24 continue CPAP 14 cmH2O. Supplies are though [facility] Assessment & Plan (07/11/2025 10:56 AM EDT): Followed by [facility]. Sleep study 10/07/18 reveals severe SILVER. -Currently using CPAP nightly She started 11/05/2018 -seen by CIARA Lepe on 10/09/24 continue CPAP 14 cmH2O. Supplies are though [facility] Assessment & Plan (01/01/2025 5:24 PM EST): Followed by [facility]. Sleep study 10/07/18 reveals severe SILVER. -Currently using CPAP nightly She started 11/05/2018 -seen by CIARA Lepe on 10/09/24 continue CPAP 14 cmH2O. Supplies are though [facility] Assessment & Plan (07/21/2023 1:56 PM EDT): Followed by [facility]. Sleep study 10/07/18 reveals severe [...] therapist. No SI/HI. Reports going to [facility], where she sees her specialists. Assessment & Plan (07/11/2025 10:56 AM EDT): At visit in 11/2017, we stopped depo, as we presumed was causing depression Depression has not improved, as she is being seen by psychiatrist and therapist. No SI/HI. Reports going to [facility], where she sees her specialists. Assessment & Plan (01/01/2025 5:41 PM EST): At visit in 11/2017, we stopped depo, as we presumed was causing depression Depression has not improved, as she is being seen by psychiatrist and therapist. No SI/HI. Reports going to [facility], where she sees her specialists. Assessment & [...] therapist. No SI/HI. Reports going to [facility], where she sees her specialists. Resolved Problems [...] organization. Date Type Department Care Team Description 08/13/2025 Travel 08/06/2025 11:45 AM EDT Office Visit [facility] [address] [place] [phone] Kath Soto MD Chronic pain of left knee (Primary Dx); Fibromyalgia 08/06/2025 Travel 08/06/2025 Orders Only [facility] External Provider, [facility] Adrenal nodule (CMS/HCC) (Primary Dx) 08/02/2025 Refill [facility] [address] [place] [phone] Alvina Mccartney MD 07/30/2025 11:00 AM EDT Office Visit [address] [address] Kath Soto MD Fibromyalgia (Primary Dx) 07/30/2025 Travel 07/20/[address] [address] Alvina Mccartney MD Durable Medical Equipment (DME Request: Cane) 07/16/2025 11:00 AM EDT Office Visit [address] [address] Kath Soto MD Fibromyalgia (Primary Dx) 07/16/2025 Travel 07/15/2025 Travel 07/11/2025 10:30 AM EDT Office Visit [address] [address] Alvina Mccartney MD Prediabetes (Primary Dx); Essential hypertension; Hypercholesteremia; Adrenal nodule (CMS/HCC); Obstructive sleep apnea syndrome; Mild intermittent asthma without complication; Fibromyalgia; Low back pain at multiple sites; Chronic pain of left knee; Urinary incontinence, unspecified type; Ingrown hair; Major depression single episode, in partial remission (CMS/HCC); Positive depression screening; Overweight; Dietary counseling; Exercise counseling; Other specified health status 07/11/2025 Travel 07/10/[address] [address] Alvina Mccartney MD chart prep 07/04/2025 Travel 07/03/2025 Patient Outreach [address] [address] Alvina Mccartney MD Pre-visit Planning (SDOH screening was completed on 01/01/2025) 06/26/2025 Refill [facility] [address] [place] [address] Alvina Mccartney MD 06/25/2025 11:00 AM EDT Office Visit [facility] [address] [place] [phone] Kath Soto MD Fibromyalgia (Primary Dx); Low back pain at multiple sites; Chronic pain of left knee 06/25/2025 Travel 06/22/2025 Travel 06/22/2025 Telephone [facility] [address] [place] [address] Alvina Mccartney MD Durable Medical Equipment (DME Request: Wheelchair/Pullups) 06/21/2025 Orders Only [facility] External Provider, [facility] Gall bladder polyp (Primary Dx) 06/21/2025 Refill [facility] [address] [place] [address] Alvina Mccartney MD Vitamin D deficiency; Essential hypertension 06/18/2025 11:00 AM EDT Office Visit [facility] [address] [place] [phone] Kath Soto MD Chronic pain of left knee (Primary Dx); Allergic rhinitis, unspecified seasonality, unspecified trigger; Fibromyalgia; Low back pain at multiple sites 06/18/2025 Travel 06/11/2025 11:00 AM EDT Office Visit [address] [address] Kath Soto MD Fibromyalgia (Primary Dx) 06/11/2025 Travel 06/04/2025 Travel 05/29/2025 Refill [facility] [address] [place] [address] Alvina Mccartney MD 05/28/2025 11:00 AM EDT Office Visit [address] [address] Kath Soto MD Chronic pain of left knee (Primary Dx); Fibromyalgia 05/28/2025 Travel 05/21/2025 11:00 AM EDT Office Visit [address] [address] Kath Soto MD Fibromyalgia (Primary Dx); Chronic pain of left knee 05/21/2025 Travel 05/14/2025 11:00 AM EDT Office Visit [facility] [address] [place] [address] Kath Soto MD Low back pain at [...] Questionnaire-9 Score 07/11/2025 Patient Health Questionnaire-9 Score 07/11/2025 Last PHQ-9: Questionnaire Data Not on [...] 10:00 AM EST Office Visit [facility] [address] [place] [address], [place] [address] Marli Valentin, OD [address] [place] [address] Health Maintenance Due Date Last Done Comments [...] exists Disability Screening 07/11/2026 07/11/2025 Tobacco Screening 08/07/2026 08/07/2025 Cervical Cancer Screening 07/26/2028 HPV/Cotest 07/26/2028 07/26/2023, [...] Name Priority Date/Time Associated Diagnosis Comments CT ADRENAL WO/W IV CON Routine 08/06/2025 9:06 AM EDT POCT GLYCATED HEMOGLOBIN, TOTAL Routine 07/11/2025 10:29 [...] Recently Relevant to Health Maintenance Results * CT adrenal wo/w IV con (08/06/2025 9:06 AM EDT) Anatomical Region Laterality Modality Kidney Computed Tomogra phy 08/06/2025 9:06 AM EDT Narrative 08/06/2025 10:04 AM EDT [address] [address] [address] Scan Report Signed Patient: Lety Bates MR#: [id number] 1571 : 1970 Acct:[id number] Age/Sex: 55 / F ADM Date: 08/06/25 Loc: HO.CT Attending Dr: Jina Vences MD Ordering Physician: Jina Vences MD Date of Service: 08/06/25 Procedure(s): CT adrenal wo/w IV con Accession Number(s): [id number] cc: Alvina Mccartney MD; Jina Vences MD Report Number: [id number]: Total DLP = 637.00 mGy-cm Reason for Exam: E27.8 - Other specified disorders of adrenal gland EXAMINATION: CT ABDOMEN PELVIS ADRENALS WITHOUT THEN WITH IV CONTRAST HISTORY: E27.8 - Other specified disorders of adrenal gland COMPARISON: Comparison is made with the prior examination dated 11/09/2024. TECHNIQUE: CT scan of the abdomen was performed before and after the intravenous administration of 85 mL Omnipaque 350. Postcontrast images were obtained through the adrenal glands in the portal venous and delayed phases to calculate adrenal washout. Coronal and sagittal reformatted images were generated and reviewed. Oral contrast material was not administered per department protocol. This CT exam was performed with one or more of the following dose reduction techniques: automated exposure control, adjustment of the mA and/or kV according to patient size, use of iterative reconstruction technique. DLP: 637 mGy-cm ABDOMEN: LOWER CHEST: The visualized lung bases are clear. There is no pleural effusion. There is a 1.7 cm left breast mass demonstrating internal calcifications, consistent with a fibroadenoma. CARDIOVASCULATURE: The heart is normal in size. There is no pericardial effusion. LIVER: The liver is normal in size and contour. No liver mass is identified. The hepatic and portal veins are patent. GALLBLADDER / BILE DUCTS: The gallbladder is unremarkable. There is no intra or extrahepatic biliary ductal dilatation. SPLEEN: The spleen is normal in size. No focal splenic lesion is identified. PANCREAS: The pancreas is unremarkable in appearance. ADRENAL GLANDS: The right adrenal gland is unremarkable. Again seen is a 9 mm left adrenal mass. The mass measures 48.1 HU on the unenhanced examination, 79.7 HU on the immediate postcontrast images, and 65.9 HU on the delayed images. This calculates to a 43.7% washout which is indeterminate. However, the nodule has been stable in size since at least 09/24/2021, highly suggestive of benignity. KIDNEYS/RETROPERITONEUM: No renal calculi are identified. There is no hydronephrosis. No renal masses are identified. LYMPH NODES: No abdominal or pelvic lymphadenopathy. VASCULATURE: The abdominal aorta is normal in caliber. MESENTERY/PERITONEUM: No free fluid. No masses. There is no free intraperitoneal gas. STOMACH: The stomach is collapsed, limiting evaluation. SMALL BOWEL: The visualized small bowel is normal in caliber. COLON: The visualized portion of the colon is unremarkable. BONES / SOFT TISSUES: No suspicious bony or soft tissue abnormalities. CT/CT adrenal wo/w IV con IMPRESSION: 9 mm left adrenal mass which is indeterminate for adenoma. However, the nodule has been stable since at least 09/24/2021, highly suggestive of benignity. Electronically signed by: Elder Esparza MD 08/06/2025 10:01 AM EDT Dictated By: Elder Esparza MD Signed By: <Electronically signed by Elder Esparza MD in OV> 08/06/25 1001 DD/ 5 TD/TT: 08/06/2543 Bindery Chief: Procedure Note Donotuseinterpreter, Image - 08/06/[address] [address] [address] Scan Report Signed Patient: Luann Bates#: [id number] 1571 : 1970Acct:[id number] Age/Sex: 55 / FADM Date: 08/06/25 Loc: HO.CT Attending Dr: Jina Vences MD Ordering Physician: Jina Vences MD Date of Service: 08/06/25 Procedure(s): CT adrenal wo/w IV con Accession Number(s): [id number] cc: Alvina Mccartney MD; Jina Vences MD Report Number: [id number]: Total DLP = 637.00 mGy-cm Reason for Exam: E27.8 - Other specified disorders of adrenal gland EXAMINATION: CT ABDOMEN PELVIS ADRENALS WITHOUT THEN WITH IV CONTRAST HISTORY: E27.8 - Other specified disorders of adrenal gland COMPARISON: Comparison is made with the prior examination dated 11/09/2024. TECHNIQUE: CT scan of the abdomen was performed before and after the intravenous administration of 85 mL Omnipaque 350. Postcontrast images were obtained through the adrenal glands in the portal venous and delayed phases to calculate adrenal washout. Coronal and sagittal reformatted images were generated and reviewed. Oral contrast material was not administered per department protocol. This CT exam was performed with one or more of the following dose reduction techniques: automated exposure control, adjustment of the mA and/or kV according to patient size, use of iterative reconstruction technique. DLP: 637 mGy-cm ABDOMEN: LOWER CHEST: The visualized lung bases are clear. There is no pleural effusion. There is a 1.7 cm left breast mass demonstrating internal calcifications, consistent with a fibroadenoma. CARDIOVASCULATURE: The heart is normal in size. There is no pericardial effusion. LIVER: The liver is normal in size and contour. No liver mass is identified. The hepatic and portal veins are patent. GALLBLADDER / BILE DUCTS: The gallbladder is unremarkable. There is no intra or extrahepatic biliary ductal dilatation. SPLEEN: The spleen is normal in size. No focal splenic lesion is identified. PANCREAS: The pancreas is unremarkable in appearance. ADRENAL GLANDS: The right adrenal gland is unremarkable. Again seen is a 9 mm left adrenal mass. The mass measures 48.1 HU on the unenhanced examination, 79.7 HU on the immediate postcontrast images, and 65.9 HU on the delayed images. This calculates to a 43.7% washout which is indeterminate. However, the nodule has been stable in size since at least 09/24/2021, highly suggestive of benignity. KIDNEYS/RETROPERITONEUM: No renal calculi are identified. There is no hydronephrosis. No renal masses are identified. LYMPH NODES: No abdominal or pelvic lymphadenopathy. VASCULATURE: The abdominal aorta is normal in caliber. MESENTERY/PERITONEUM: No free fluid. No masses. There is no free intraperitoneal gas. STOMACH: The stomach is collapsed, limiting evaluation. SMALL BOWEL: The visualized small bowel is normal in caliber. COLON: The visualized portion of the colon is unremarkable. BONES / SOFT TISSUES: No suspicious bony or soft tissue abnormalities. CT/CT adrenal wo/w IV con IMPRESSION: 9 mm left adrenal mass which is indeterminate for adenoma. However, the nodule has been stable since at least 09/24/2021, highly suggestive of benignity. Electronically signed by: Elder Esparza MD 08/06/2025 10:01 AM EDT Dictated By: Elder Esparza MD Signed By: <Electronically signed by Elder Esparza MD in OV> 08/06/25 1001 DD/ 0906 TD/TT: 08/06/25 0943 Bindery Chief: [facility] External Provider IMG CT PROCEDURES Final Result * POCT Hgb A1c (07/11/2025 10:29 AM EDT) Hemoglobin A1C 5.6 4.0 - 5.7 % QC Media Lot # [id number] Lot# Expiration Date ,358,327 Blood 07/11/2025 10:2 9 AM EDT us Alvina Mccartney MD POINT OF CARE TEST ENTER/E DIT ORDERABLES Final Result * POCT Glucose (07/11/2025 10:19 AM EDT) Glucose Blood, POC 117 60 - 200 mg/dL QC Media Lot # [id number] Lot# Expiration Date ,285,987 Blood Capillary blood specimen / Unknown 07/11/2025 10:19 AM EDT us Alvina Mccartney MD POINT OF CARE TEST ENTER/E DIT ORDERABLES Final Result * US ABDOMEN SHAH W ELASTOGRAPHY (06/21/2025 10:23 AM EDT) Anatomical Region Laterality Modality Abdomen Ultrasound 06/21/2025 10:2 3 AM EDT Narrative 06/21/2025 10:48 AM EDT [place] [address] Ultrasound Report Signed Patient: Lety Bates MR#: [id number] 1571 : 1970 Acct:[id number] Age/Sex: 55 / F ADM Date: 06/21/25 Loc: HO.US Attending Dr: Alfreda Mendez MD Ordering Physician: Alfreda Mendez MD Date of Service: 06/21/25 Procedure(s): US abdomen shah w elastography Accession Number(s): [id number] cc: Alvina Mccartney MD; Alfreda Mendez MD [...] 06/21/25 1045 DD/ 1023 TD/TT: 06/21/25 1033 Bindery Chief: Procedure Note Donotuseinterpreter, Image - 06/21/2025 [place] [address] Ultrasound Report Signed Patient: Luann Bates#: [id number] 1571 : 1970Acct:[id number] Age/Sex: 55 / FADM Date: 06/21/25 Loc: HO.US Attending Dr: Alfreda Mendez MD Ordering Physician: Alfreda Mendez MD Date of Service: 06/21/25 Procedure(s): US abdomen shah w elastography Accession Number(s): [id number] cc: Alvina Mccartney MD; Alfreda Mendez MD [...] 06/21/25 1045 DD/ 1023 TD/TT: 06/21/25 1033 Bindery Chief: us [facility] External Provider IMG US PROCEDURES Final Result * BI US Breast Limited Left (02/07/2025 2:30 PM EDT) Anatomical Region Laterality Modality Breast Left Ultrasound 02/07/2025 2:30 PM EDT Narrative 02/07/2025 2:58 PM EDT [facility] [address] [place], [place] [address] Ultrasound Report Signed Patient: Lety Bates MR#: [id number] 1571 : 1970 Acct:[id number] Age/Sex: 54 / F ADM Date: 02/07/25 Loc: HO.MAMMO Attending Dr: Alvina Mccartney MD Ordering Physician: Alvina Mccartney MD Date of Service: 02/07/25 Procedure(s): US breast LT limited mamm only Accession Number(s): [id number] cc: Alvina Mccartney MD EXAMINATION: MM DIAGNOSTIC [...] 02/07/25 1455 DD/ 1430 TD/TT: 02/07/25 1444 Bindery Chief: Procedure Note Donotnedainterpreter, Image - 02/07/2025 [facility] [address] [place], [place] [address] Ultrasound Report Signed Patient: Leidy BatesnMR#: [id number] 1571 : 1970Acct:[id number] Age/Sex: 54 / FADM Date: 02/07/25 Loc: HO.MAMMO Attending Dr: Alvina Mccartney MD Ordering Physician: Alvina Mccartney MD Date of Service: 02/07/25 Procedure(s): US breast LT limited mamm only Accession Number(s): [id number] cc: Alvina Mccartney MD EXAMINATION: MM DIAGNOSTIC [...] 02/07/25 1455 DD/ 1430 TD/TT: 02/07/25 1444 Bindery Chief: Alvina Mccartney MD IMG US PROCEDURES Final Re sult * (ABNORMAL) Lipid Panel, Standard (07/08/2024 9:02 AM EDT) Triglycerides 101 <150 mg/dL [facility] Comment:Desirable Triglyceri de: less than 150 mg/dLBorderline High Triglyceride 150-199 mg/dLHigh Triglyceride: 200-499 mg/dLVery High Triglyceride: greater than or equal to 5OO mg/dL Cholesterol 184 <200 mg/dL [facility] Comment:Desirable Cholestero l: less than 200 mg/dLBorderline High Cholesterol: 200-239 mg/dLHigh Cholesterol: greater than 239 mg/dL LDL Cholesterol Calculated 128(H) <100 mg/dL [facility] Comment:Desirable LDL: less than 100 mg/dLNear Optimal/Above Optimal LDL: 110- 129 mg/dLBorderline High LDL: 130-159 mg/dLHigh LDL: 160-189 mg/dLVery High LDL: greater than or equal to 190 mg/dL HDL Cholesterol 36(L) >40 mg/dL [facility] Comment:Desirable HDL: great er than 40 mg/dL Note: This HDL assay may give artificially low results in patients with liver disease. Blood Venous blood specimen / Unknown 07/08/2024 9:02 AM EDT 07/08/2024 9:02 AM EDT Alvina Mccartney MD LAB BLOOD ORDERABLES Final Result [facility] [address] [place] [address] [phone] * Hm Colonoscopy (04/04/2024) Colonoscopy Normal Normal 04/04/2024 Historical Provider HEALTH MAINTENANCE Final Result * Hepatitis C Ab (07/29/2023 9:23 AM EDT) Hepatitis C Antibody Nonreactive Nonreactive [facility] Comment:Antibodies to HCV no t detected; does not exclude early acuteHCV infection. Blood 07/29/2023 9:23 AM EDT 07/29/2023 11:00 AM EDT Alvina Mccartney MD LAB BLOOD ORDERABLES Final Result [facility] [address] [place] [phone] * HPV mRNA E6/E7 w/Reflex to HPV Genotypes 16, 18/45 (07/26/2023 10:57 AM EDT) Pathologist [facility] HPV nRNA E6/E7 Not Detected Not Detected [facility] Comment:Methodology: Transcr iption-Mediated AmplificationThis assay detects E6/E7 viral messenger RNA (mRNA) from 14high-risk HPV types (16,18,31,33,35,39,45,51,52,56,58,59,66,68).Cervical sources are required for HPV testing.If a vaginal source from a patient who has had atotal hysterectomy with removal of cervix wassubmitted, please contact the testing laboratoryfor alternative testing options.For additional information, please refer [email or web address]/faq/QGA065c5(This link if provided for information/educational purposes only.)THIS TEST WAS PERFORMED AT:[facility] [place] [id number] CALIX MD HPV mRNA E6/E7 TNP [facility] HPV 16 RNA TNP [facility] HPV 18/45 RNA TNP [facility] 07/26/2023 10:5 7 AM EDT 07/27/2023 9:00 AM EDT us Alvina Mccartney MD LAB CYTOLOGY ORDERABLES Fi nal Result [facility] [address] [place] [phone] * Pap Smear (07/26/2023 10:57 AM EDT) 07/26/2023 10:5 7 AM EDT 07/27/2023 9:00 AM EDT Narrative [facility] - 08/02/2023 1:35 PM EDT ----- ------- Name: PauloLety Age/Sex: 53/F : 1970 Unit#: [id number] Attend Dr: Alvina Mccartney MD Re07/26/23 Status: [facility] REF Location: HO.HHCLNP Disch: ----- ------- SPEC : [id number] RECD: 07/27/23 STATUS: CHRISTINA LACY NUM: [id number] AMANDA: 07/26/23-[address] [facility] [facility] [address]: Alvina Mccartney MD ENTERED: 07/27/23 SP TYPE: Pap Smr OTHR DR: ORDERED: Pap Smear Interpretation Satisfactory for evaluation. Negative for intraepithelial lesion or malignancy. HPV mRNA E6/E7: NOT DETECTED This assay detects E6/E7 viral messenger RNA (mRNA) from 14 high-risk HPV types (16, 18, 31, 33, 35, 39, 45, 51, 52, 56, 58, 59, 66, 68) HPV testing performed by [facility], [place], [place]. See reference laboratory pion of the EMR for entire report. Clinical Information LMP: Unknown date Previous PAP test: Unknown date/findings Material Received ThinPrep-Vaginal/Cervical ----- ------- Signed (signature on file) JUSTIN Arambula (ASCP) 08/02/23 1335 ----- ------- END OF REPORT us Alvina Mccartney MD LAB CYTOLOGY ORDERABLES Fi nal Result [facility] [address] [place] [phone] * HIV 1/2 Antigen and Antibody (01/21/2021) HIV Ag/Ab Nonreactive Historical Provider HEALTH MAINTENANCE Final Result from Last 3 Months or Most Recently Relevant to Health Maintenance Insurance [facility] DUAL COMPLETE Advance Directives Documents on File Type Date Recorded Patient Paper Sorter And Counter Expl anation Advance Directives and Living Will 07/07/2024 1:01 PM Health Care Proxy Care Teams Interior Specialist Relationship Specialty Start Date End Date Bib, MD [address] [place] [address] PCP - General Family Medicine 11/01/18 Riky Tanner [address] [place] [address] Cardiology 10/03/24 Mariella Mcdonnell [address] [phone] Sleep Medicine 10/11/24 Jina Vences MD [address] [place] [address] Endocrinology 11/05/24 Shadia Morocho PA [address] [place] [address] Orthopaedic Surgery 11/07/24 Kendall Bates MD [address] [place] [address] General Surgery 11/28/24 Sara Pritchett [address] [place] [address] Pain Medicine 01/16/25 Alfreda Mendez MD [address] [place] [address] Gastroenterology 05/03/25
== END 2025-08-13 11:36 | disposition home or self-care (01) ==
LOC: HO.HHCX 11:35
PROVIDERS: PCP Family Medicine; Visit Provider General Practice
DX: R60.0 Localized edema (principal); Z91.81 History of falling
CPT/HCPCS: 73130

== ENCOUNTER → 2025-08-13 11:41 | Outpatient (BNV) | payer OTHER, SELFPAY | PROVIDERS: PCP Family Medicine; Visit Provider Radiology Diagnostic Radiology | DX: M25.441 Effusion, right hand (principal); W19.XXXA Unspecified fall, initial encounter | CPT/HCPCS: 73130 ==

== ENCOUNTER 2025-09-05 09:42 | Outpatient (AMB) | payer OTHER, SELFPAY ==
--- NOTE | 2025-09-05 09:49 | A.OFFVIS_ITS ---
Intake Visit Reasons: Urinary incontinence Intake Note: Patient is present for URINARY INCONTINENCE Urology Medication:NONE Antibiotic Allergy:NONE Blood Thinner:NONE TODAY'S PVR:99ML'S Decontamination Technician Required: No Allergies No Known Allergies Allergy (Verified 09/05/25 10:23) Medication List - Last Reconciled 09/05/25 by CIARA Fisher-NAVARRO albuterol sulfate 90 mcg/actuation (Ventolin HFA) 1 - 2 puffs inhalation Q4-6H PRN amlodipine 10 mg PO QAM blood pressure test kit-large As directed buspirone 15 mg PO BID edjutnpyoe-ozbucckzyqxvy-kony 50-325-40 mg 1 tab PO Q6H PRN celecoxib (Celebrex) 200 mg PO BID 30 days cetirizine 10 mg PO QAM cholecalciferol (vitamin D3) (Vitamin D3) 25 mcg PO QAM dexamethasone 1 mg PO DAILY duloxetine 30 mg PO QAM fluticasone propion-salmeterol 500-50 mcg/dose 1 ea inhalation BID fluticasone propionate 50 mcg/actuation 1 spray intranasal DAILY gabapentin 400 mg PO TID 30 days hydroxyzine HCl 10 mg PO TID lansoprazole 30 mg PO DAILY lidocaine 5% leave on most painful area for up to 12 hrs topical 30 days lisinopril 20 mg PO QAM 90 days lorazepam 1 mg PO ONCE PRN 1 day ondansetron 4 mg PO Q6-8H PRN ondansetron HCl (Zofran) 4 mg PO Q8H PRN polyethylene glycol 3350 17 grams PO BID sumatriptan succinate (Imitrex) 50 mg PO Q2H PRN zolpidem 10 mg PO BEDTIME HPI Comments Details: Lety is a pleasant 55-year-old female patient of Dr. Mccartney. She has a past medical history of back pain, prediabetes, GERD, fibromyalgia, bipolar disorder, insomnia, anxiety, depression, asthma, IBS, arthritis, and hypertension. She presents to the office today as a new patient for mixed urinary incontinence. In discussion with the patient today she reports noting over the last 7-12 months she has been experiencing ongoing issues with urinary urgency, urinary frequency, bladder pressure, and mixed urinary incontinence. She reports having followed up with her PCP at which time recommendations were made for urology referral for further assessment evaluation. Unable to obtain urine for urinalysis today as patient unable to void however PVR 99 mL. We did discussed potential causes of these urinary symptoms she is reporting as well as further treatment options and risks and benefits of these treatment options. She does have a previous history of 2 vaginal deliveries of average size babies in labors were uneventful. She denies hematuria, dysuria, foul smelling urine, changes to urinary stream, flank pain, fever, and or chills. She reports she is currently utilizing 4-5 Rose Mary pads per day. All questions were answered. She otherwise offers no other issues or concerns at this time. History of Present Illness The patient is a 55-year-old female presenting with urinary incontinence and urgency. She reports difficulty holding urine, needing to urinate every hour, and sometimes not making it to the bathroom in time, resulting in accidents. She uses four to five pads daily and has been experiencing these symptoms for over six to twelve months. 1. Urinary Incontinence The patient will be started on oxybutynin 10 mg once daily. An ultrasound of the kidneys and bladder will be ordered to ensure there are no underlying issues contributing to the symptoms. 2. Urinary Urgency Pelvic floor therapy was discussed as a potential intervention. Dietary modifications were suggested, including reducing caffeine, alcohol, spicy foods, tomato-based products, chocolate, and carbonated beverages. Discussion Notes I discussed with the patient the options for managing her urinary symptoms, including pelvic floor therapy, medications, urodynamics, and dietary modifications. We agreed to start oxybutynin and perform an ultrasound to further evaluate her condition. I also informed her about the potential impact of certain foods and beverages on bladder health. [facility] Medical History Adrenal incidentaloma Back pain Pre-diabetes GERD (gastroesophageal reflux disease) Fibromyalgia Bipolar disorder Insomnia Anxiety Depression Syncope Mild intermittent asthma NAFLD (nonalcoholic fatty liver disease) Vertigo Sleep apnea IBS (irritable bowel syndrome) Arthritis HTN (hypertension) Surgical History History of umbilical hernia repair (~11/14/24) Hx of colonoscopy History of esophagogastroduodenoscopy (EGD) History of hysterectomy Family History Father Diabetes Arthritis Hypertension Hypercholesteremia Cancer Mother Diabetes Hypertension Arthritis Cancer Son Asthma Son Asthma Heart problem Social History Are you a primary career services representative to a significant other at home: No Do you presently have visiting nurse or other home services: No Alcohol intake: never Patient Tobacco Use Status: Never used Tobacco Current occupational status: retired Review of Systems Const All systems reviewed & are unremarkable except as noted in HPI and below Physical Exam Const General: cooperative, healthy appearing, comfortable, no acute distress, well developed, alert and awake Orientation/consciousness: patient oriented x3 Limitations: no limitations HEENT Head: Yes normal to inspection, Yes normocephalic and Yes atraumatic Ears: hearing grossly normal bilaterally Eyes General: appearance normal, both eyes and all related structures Neck Neck: Yes normal visual inspection and Yes trachea midline Chest Chest palpation & inspection: normal inspection of the chest Resp Effort & Inspection: normal respiratory effort and able to speak in complete sentences Cardio Rate: regular rate GI Inspection: Yes normal to inspection General: Yes no CVA tenderness Back/Spine/Pelvis Back: no CVA tenderness Skin General skin exam: no rashes or lesions noted Neuro General: patient oriented x3 Extrem General: Yes normal to inspection Psych Appearance: grossly normal and well kempt Mental Status: mental status grossly normal Speech and movement: Normal speech and movement present and Clear speech present Affect: normal affect Attitude: cooperative Thought process: Normal thought process present Thought content: Normal thought content present Insight: Fair insight present (Psych) Judgement: Fair judgement present (Psych) Office Procedures Post Void Residual Post Residual Void Post Void Residual (PVR): 99 45117-[id number] Void Residual by ultrasound Results AMB Urinalysis, Automated UA Leukoctes 0 [place]/uL Last Edit by FREDRICK Garcia on 09/05/25 10:08 UA Nitrite Negative Last Edit by FREDRICK Garcia on 09/05/25 10:08 UA Urobilinogen 0.2 mg/dL Last Edit by FREDRICK Garcia on 09/05/25 10:0 8 UA Protein 0 mg/dL Last Edit by FREDRICK Garcia on 09/05/25 10:08 UA pH 6.0 Last Edit by FREDRICK Garcia on 09/05/25 10:08 UA Blood 0 Richard/uL Last Edit by FREDRICK Garcia on 09/05/25 10:08 UA Specific [place] 1.030 Last Edit by FREDRICK Garcia on 09/05/25 10: 08 UA Ketone Negative Last Edit by FREDRICK Garcia on 09/05/25 10:08 UA Bilirubin 0 mg/dL Last Edit by Lizzie Schuster CCM on 09/05/25 10:08 UA Glucose 0 mg/dL Last Edit by FREDRICK Garcia on 09/05/25 10:08 Results Reviewed Results Reviewed: Laboratory Last Values Urine pH (Auto) 6.0 09/05/25 10:08 Specific [place] (Auto) 1.030 09/05/25 10:08 Urine Protein (Auto) 0 mg/dL 09/05/25 10:08 Glucose (UA)(Auto) 0 mg/dL 09/05/25 10:08 Urine Ketones (Auto) Negative 09/05/25 10:08 Urine Blood (Auto) 0 Richard/uL 09/05/25 10:08 Urine Nitrite (Auto) Negative 09/05/25 10:08 Urine Bilirubin (Auto) 0 mg/dL 09/05/25 10:08 Urine Urobilinogen (Auto) 0.2 mg/dL 09/05/25 10:08 Leukocyte Esterase (Auto) 0 [place]/uL 09/05/25 10:08 Assessment & Plan Assessment & Plan (1) Urinary incontinence, mixed: Code(s): N39.46 - Mixed incontinence Category: Medical (2) Lower urinary tract symptoms: Code(s): R39.9 - Unspecified symptoms and signs involving the genitourinary system Category: Medical Plan Unable to obtain urine for urinalysis today however PVR 99 mL. We did discussed potential causes of lower urinary tract symptoms patient is experiencing as well as further treatment options and risks and benefits of these treatment options. Will obtain retroperitoneal ultrasound for further assessment evaluation. Start oxybutynin as discussed and prescribed. We did discussed bladder triggers and irritants. All questions were answered. Follow-up in 1-3 months with PVR and imaging; or sooner with any issues, concerns, and or questions. Orders: Orders US retroperitoneal comp Today N39.46 - Mixed incontinence AMB Urinalysis Automated Today Z13.9 - Encounter for screening, unspecified Medications: New oxybutynin chloride ER 10 mg PO DAILY 30 tabs 3RF 30 days N32.81 - Overactive bladder Patient Instructions: The patient had an opportunity to ask questions regarding the treatment plan. All questions were answered. Physical exam, labs, and imaging were discussed and reviewed in detail. As well as risks, benefits, and discussion of treatment choices. No major barriers to understanding were identified. The patient expressed understanding and agreement with the above treatment plan. The patient was made aware they should contact our office by phone for worsening of their current condition, the appearance of new symptoms, or with any questions or concerns. Compliance is encouraged with any medications and follow up testing that is ordered. It is a privilege to be allowed the opportunity to participate in? your urological care.? Again, if you have any questions or concerns If you have any questions or concerns please do not hesitate to contact me. The office is [phone]. This note is constructed using voice recognition software. While every effort has been made to ensure accuracy rehabilitation teacher errors may have been included. Yours sincerely, CIARA Fisher-NAVARRO Coding Level of Care Code New Pt Level 4 (56301) Diagnoses Urinary incontinence, mixed N39.46 Lower urinary tract symptoms R39.9 CPT Codes Post Residual Void - PVR CPT Code: 18824-Idlv Void Residual by ultrasound ([id number])
--- OUTSIDE RECORDS SUMMARY | 2025-09-05 10:54 | XMS_ITS ---
Author Name Natalee Avilez NP Address [address] [place] [address] Phone [phone] [facility] Care Team Providers Care Bran Mixer Name Role Phone Natalee Avilez Unavailable [phone] Carline Corrie Unavailable [phone] DOROTHEA NEAL Unavailable [phone] Carina Baird Unavailable Unavailable Reason for Referral [...] Contact mental health professional:/ Transfer member to 988 services/ Hydroxyzine (Vistaril) 25mg PO q6h PRN anxiety/ Remind member of personal goal:/ Encourage use of home medication:/ Limit extra stimulation Encounters Encounters Type Facility Date of Service Diagnosis/Co mplaint New patient, 30-44min 1 stable chronic or 2 minor; add modifier 95 for video, modifier 93 for phone [facility]2023 Major depressive disorder, recurrent, mildInsomnia, unspecifiedGeneralized anxiety disorderGastro-esophageal reflux disease without esophagitisDizziness and giddinessEssential (primary) hypertensionNeuralgia and neuritis, unspecifiedVitamin D deficiency, unspecifiedMild intermittent asthma, uncomplicated New patient, 30-44min 1 stable chronic or 2 minor; add modifier 95 for video, modifier 93 for phone [facility] 10/05/2023 New patient, 30-44min 1 stable chronic or 2 minor; add modifier 95 for video, modifier 93 for phone [facility] 10/05/2023 New patient, 30-44min 1 stable chronic or 2 minor; add modifier 95 for video, modifier 93 for phone [facility]05/20[place] New patient, 30-44min 1 stable chronic or 2 minor; add modifier 95 for video, modifier 93 for phone [facility]/20[place] New patient, 30-44min 1 stable chronic or 2 minor; add modifier 95 for video, modifier 93 for phone [facility]/2023 Estab. patient 30-39min; chronic exacerbation, 2 stable chronic or 1 acute illness add add modifier 95 for video, (do not use for phone, instead use 02225-09) [facility]2024 Major depressive disorder, recurrent, mildInsomnia, unspecifiedGeneralized anxiety disorderGastro-esophageal reflux disease without esophagitisDizziness and giddinessEssential (primary) hypertensionNeuralgia and neuritis, unspecifiedVitamin D deficiency, unspecifiedMild intermittent asthma, uncomplicatedOther problems related to medical facilities and other health care Estab. patient 30-39min; chronic exacerbation, 2 stable chronic or 1 acute illness add add modifier 95 for video, (do not use for phone, instead use 08858-38) [facility] Estab. patient 30-39min; chronic exacerbation, 2 stable chronic or 1 acute illness add add modifier 95 for video, (do not use for phone, instead use 20793-39) [facility] Estab. patient 30-39min; chronic exacerbation, 2 stable chronic or 1 acute illness add add modifier 95 for video, (do not use for phone, instead use 76459-46) [facility] Estab. patient 30-39min; chronic exacerbation, 2 stable chronic or 1 acute illness add add modifier 95 for video, (do not use for phone, instead use 50000-63) [facility] Estab. patient 30-39min; chronic exacerbation, 2 stable chronic or 1 acute illness add add modifier 95 for video, (do not use for phone, instead use 87643-48) [facility] Estab. patient 30-39min; chronic exacerbation, 2 stable chronic or 1 acute illness add add modifier 95 for video, (do not use for phone, instead use 83632-55) [facility] ([place] 04/25/2024 Estab. patient 30-39min; chronic exacerbation, 2 stable chronic or 1 acute illness add add modifier 95 for video, (do not use for phone, instead use 58071-22) [facility] [place] 04/25/2024 Estab. patient 30-39min; chronic exacerbation, 2 stable chronic or 1 acute illness add add modifier 95 for video, (do not use for phone, instead use 87826-63) [facility] ([place] 04/25/2024 Unlisted special service; to be used for medical record reviews and reporting CPTII codes (1111F, etc) [facility] ([place] 09/04/2024 Other specified health statu s Unlisted special service; to be used for medical record reviews and reporting CPTII codes (1111F, etc) [facility] [place] 09/04/2024 Unlisted special service; to be used for medical record reviews and reporting CPTII codes (1111F, etc) [facility] ([place] 09/04/2024 Vital Signs Date of Collection Vitals [...] 95 for video, modifier 93 for phone 35608 2023-10-05 No Data Available No Data Available [...] (do not use for phone, instead use 16263-84) 70029 2024-04-25 No Data Available No Data Availa [...] reviews and reporting CPTII codes (1111F, etc) 20741 2024-09-04 No Data Available No Data Availa ble SBP < 130 (3074F) 3074F 2024-09-04 No Data Available No Data Available DBP <80 (3078F) 3078F 2024-09-04 No Data Available No Data Available Functional Status Functional Category Effective 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
== END 2025-09-05 10:24 | disposition home or self-care (01) ==
LOC: HO.HUSH 09:43
PROVIDERS: PCP Family Medicine; Visit Provider Nurse Practitioner Family
DX: N39.46 Mixed incontinence (principal); R39.9 Unspecified symptoms and signs involving the genitourinary system; Z13.9 Encounter for screening, unspecified
CPT/HCPCS: 99204

== ENCOUNTER → 2025-09-05 09:42 | Outpatient (BNVA) | payer OTHER, SELFPAY | PROVIDERS: PCP Family Medicine; Visit Provider Nurse Practitioner Family | DX: N39.46 Mixed incontinence (principal); N32.81 Overactive bladder; R35.0 Frequency of micturition | CPT/HCPCS: 51798; 81003; 99202 ==

== ENCOUNTER 2025-09-17 10:51 | Outpatient (AMB) | payer OTHER, SELFPAY ==
--- NOTE | 2025-09-17 11:25 | A.OFFVIS_ITS ---
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 Internship Services: Chemist Internship Offered & Declined Allergies No Known Allergies Allergy (Verified 09/17/25 11:29) Medication List - Last Reconciled 09/17/25 by Carina Baird CNP albuterol sulfate 90 mcg/actuation (Ventolin HFA) 1 - 2 puffs inhalation Q4-6H PRN amlodipine 10 mg PO QAM blood pressure test kit-large As directed buspirone 15 mg PO BID cvgdybmaby-ztkrrvpbhmzts-qitb 50-325-40 mg 1 tab PO Q6H PRN celecoxib (Celebrex) 200 mg PO BID 30 days cetirizine 10 mg PO QAM cholecalciferol (vitamin D3) (Vitamin D3) 25 mcg PO QAM dexamethasone 1 mg PO DAILY duloxetine 30 mg PO QAM fluticasone propion-salmeterol 500-50 mcg/dose 1 ea inhalation BID fluticasone propionate 50 mcg/actuation 1 spray intranasal DAILY gabapentin 400 mg PO TID 30 days hydroxyzine HCl 10 mg PO TID lansoprazole 30 mg PO DAILY lidocaine 5% leave on most painful area for up to 12 hrs topical 30 days lisinopril 20 mg PO QAM 90 days lorazepam 1 mg PO ONCE PRN 1 day ondansetron 4 mg PO Q6-8H PRN ondansetron HCl (Zofran) 4 mg PO Q8H PRN oxybutynin chloride ER 10 mg PO DAILY 30 days polyethylene glycol 3350 17 grams PO BID primidone 50 mg PO BEDTIME sumatriptan succinate (Imitrex) 50 mg PO Q2H PRN zolpidem 10 mg PO BEDTIME HPI Comments Details: She was taking primidone at bedtime. She was still having some tremors, tremor could be worse at times than others and sometimes felt her head shaking. Sometimes her family would notice her head shaking and point it out to her. No functional impairment. No difficulty eating, drinking, or swallowing. No further episodes of passing out. She was still dealing with left knee pain and tried saphenous nerve Sprint PNS stimulator with pain management which apparently did not help much and was removed in 05/2025. Periods of lightheaded dizziness that can last all day and occur while sitting. 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 Has trouble sleeping, but trying to use CPAP. Has lot of anxiety. Gets scared and panicky, especially at night and hard to sleep. Working with therapist and psychiatrist. Following with cardiology. Had tilt table test, but is unsure of results. In 01/2024, she was standing in kitchen w hen she felt dizzy and suddenly passed out. She not sure how long she passed out for. No tongue bite or incontinence. Hx of syncopal episodes in the past, given clonazepam. Total of 3 syncopal episodes 10/2022-11/2022. Frequent episodes of dizziness and presyncope when sitting without any movement, feels things are going dark sometimes, feels she cannot breathe, has chest pain, and rapid heartbeat. Results of previous cardiology work up including 30-day monitor not available. No hearing loss, reports some ringing in both ears. No triggers identified. FHx of tremors in mother, aunt, and sisters. [facility] Medical History (Updated 09/17/25 @ 11:28 by Carina Baird CNP) Tremor Adrenal incidentaloma Back pain Pre-diabetes GERD (gastroesophageal reflux disease) Fibromyalgia Bipolar disorder Insomnia Anxiety Depression Syncope Mild intermittent asthma NAFLD (nonalcoholic fatty liver disease) Vertigo Sleep apnea IBS (irritable bowel syndrome) Arthritis HTN (hypertension) Surgical History History of umbilical hernia repair (~11/14/24) Hx of colonoscopy History of esophagogastroduodenoscopy (EGD) History of hysterectomy Family History Father Diabetes Arthritis Hypertension Hypercholesteremia Cancer Mother Diabetes Hypertension Arthritis Cancer Son Asthma Son Asthma Heart problem Social History Are you a primary healthcare liaison to a significant other at home: No Do you presently have visiting nurse or other home services: No Alcohol intake: never Patient Tobacco Use Status: Never used Tobacco Current occupational status: retired Review of Systems Const Denies chills, Denies daytime sleepiness, Reports difficulty sleeping, Denies fatigue, Denies fever(s), Denies frequent falls, Reports headache(s), Denies increased appetite, Denies poor appetite, Denies snoring, Denies weakness, Denies weight gain and Denies weight loss Eyes Denies loss of vision ENT Denies vertigo, Reports dizziness, Reports headache(s) and Denies neck pain Card Denies chest pain at rest, Denies chest pain with activity, Denies syncope, Denies leg edema, Denies palpitations, Denies dyspnea and Denies dyspnea on exertion Resp Denies cough, Denies dyspnea, Denies dyspnea on exertion and Denies snoring GI Denies abdominal pain, Denies constipation, Denies heartburn, Denies diarrhea and Denies nausea Denies urinary frequency, Reports urinary incontinence and Denies urinary u rgency Musc Denies abnormal gait, Denies back pain, Denies myalgias, Denies arthralgias, Denies neck pain, Denies numbness and Denies tingling Neuro Denies abnormal gait, Denies vertigo, Reports dizziness, Denies syncope, Denies frequent falls, Reports headache(s), Denies lack of coordination, Denies loss of vision, Denies memory loss, Denies numbness, Denies Other visual disturbances, Denies restless legs, Denies seizure-like activity, Denies tingling, Denies paresthesias, Reports tremor(s) and Denies weakness Psych Reports anxiety, Reports depression, Denies auditory hallucinations, Denies memory loss and Denies visual hallucinations Endo Denies fatigue and Denies palpitations Physical Exam Const Other: General Appearance:? normal, in no acute distress. Heart:? S1, S2 normal, no murmurs. Lungs:? clear anteriorly and posteriorly. Musculoskeletal:? normal. Extremities:? no edema. Psych:? alert, oriented, cognitive function intact, cooperative with exam. Neuro Other: Abnormal Neurological Findings:?Mild tremors of extended upper extremities.? Mental Status: alert and oriented X 3. Normal attention, orientation, memory, and affect. Cranial Nerves: Pupils are equal, round, and reactive to light. External ocular muscles are intact. Visual alejo are full, no ptosis. Face is symmetrical, no facial weakness or droop. Facial sensations are normal. Tongue protrudes in midline. Palate elevates symmetrically. Shoulder shrugging is normal Motor Examination: Normal muscle tone, bulk and strength. No atrophy or fasciculations. No drift of the extended upper extremities. DTR 2+. Plantars are flexor. Sensory Exam: Normal light touch, temperature, pinprick, vibration, and joint- position sensations. Rhomberg sign is absent. Coordination: No ataxia. No titubation. Gait Exam: Within normal limits. Cerebellar Signs: Elvwhm-mx-syrh is okay. Extrapyramidal System: Tremor as above. No rigidity with normal facial expressions. No bradykinesia. No bradyphrenia. Normal arm swing and posture. No propulsion or retropulsion. Speech: Normal. Results Reviewed Results Reviewed: 03/03/23 EEG- WNL 03/23/23 24 hr EEG normal. 03/30/23 EEG WNL Assessment & Plan Assessment & Plan (1) Tremor: Code(s): R25.1 - Tremor, unspecified Category: Medical Plan: Increase primidone 50mg 1 tablet twice a day. Reviewed labs ordered. (2) Syncope: Comment: negative tpcu-st-hxignkt with Dr. Pennington and [facility] Code(s): R55 - Syncope and collapse Category: Medical Qualifiers: Syncope type: unspecified Qualified Code(s): R55 - Syncope and collapse Plan Meds tried: propranolol (dizzy) Orders: Orders TSH reflex Free T4 Today R25.1 - Tremor, unspecified Medications: New primidone 50 mg PO BID 180 tabs 1RF 90 days Coding Level of Care Code Est Pt Level 4 (42724) Diagnoses Tremor R25.1 Syncope, unspecified syncope type R55 Syncope type: unspecified
== END 2025-09-17 11:45 | disposition home or self-care (01) ==
LOC: HO.HSM 10:52
PROVIDERS: PCP Family Medicine; Referring Provider Family Medicine; Visit Provider Registered Nurse
DX: R25.1 Tremor, unspecified (principal); R55 Syncope and collapse
CPT/HCPCS: 99214

== ENCOUNTER → 2025-09-17 10:51 | Outpatient (BNVA) | payer OTHER, SELFPAY | PROVIDERS: PCP Family Medicine; Referring Provider Family Medicine; Visit Provider Registered Nurse | DX: R25.1 Tremor, unspecified (principal); R55 Syncope and collapse | CPT/HCPCS: 99212 ==

== ENCOUNTER 2025-09-24 13:31 | Outpatient (REF) | payer OTHER, SELFPAY ==
--- OUTSIDE RECORDS SUMMARY | 2025-09-24 18:17 | XMS_ITS | Encounter Summary ---
Author Organization [employer] Address [address] [facility] 7t [place] [address] Care Team Providers Care Trucking Supervisor Name Role Phone Alvina Mccartney MD Primary Care Provider [phone] Riky Tanner Unavailable Mariella Mcdonnell Unavailable Jina Vences MD Unavailable Shadia Morocho Unavailable Kendall Bates MD Unavailable Sara Pritchett Unavailable Alfreda Mendez MD Unavailable [phone] Tisha Scanlon NP Unavailable Encounter Details Date Type Department Care Team (Late st Contact Info) Description 12/03/2022 Abstract [facility] MEDICINE [address] [place], [place] [phone] Alvina Mccartney MD [address] [place], [place] [phone] Social History Tobacco Use Types Packs/Day Years [...] Care Team (Late st Contact Info) Description 10/01/2025 11:00 AM EST Office Visit [facility] MEDICINE [address] [place] [address] 10/17/2025 10:00 AM EST Office Visit [facility] OPTOMETRY [address] [place] [address] Homero, Marli, OD [address] [place] [address] documented as of this encounter Procedures Procedure [...] on filedocumented in this encounter Care Teams Trucking Supervisor Relationship Specialty Start Date End Date Alvina Mccartney MD 230 [place] [address] PCP - General Family Medicine 11/01/18 Riky Tanner [address] 3rd [place] [address] Cardiology 10/03/24 Mariella Mcdonnell [address] [address] Sleep Medicine 10/11/24 Jina Vences MD [address] [place] [address] Endocrinology 11/05/24 Shadia Morocho PA [address] [place] [address] Orthopaedic Surgery 11/07/24 Kendall Bates MD [address] 3rd [place] [address] General Surgery 11/28/24 Sara Pritchett [address] [place] [address] Pain Medicine 01/16/25 Alfreda Mendez MD [address] 3rd [place] [address] Gastroenterology 05/03/25 Tisha Scanlon NP [address] [place] [address] Urology 09/05/25 Carina Baird CLINICAL TRIAL DATA MANAGER Neurology 09/18/25 documented as of this encounter
--- OUTSIDE RECORDS SUMMARY | 2025-09-24 18:17 | XMS_ITS | Encounter Summary ---
Author Organization [employer] Address [address] [facility] 7t [place] [address] Care Team Providers Care Freight Traffic Consultant Name Role Phone Alvina Mccartney MD Primary Care Provider [phone]- [phone] Riky Tanner Unavailable Mariella Mcdonnell Unavailable Jina Vences MD Unavailable Shadia Morocho Unavailable Kendall Bates MD Unavailable Sara Pritchett Unavailable Alfreda Mendez MD Unavailable [phone] Tisha Scanlon NP Unavailable Reason for Visit * Reason Comments Med Refill Encounter Details Date Type Department Care Team (Late st Contact Info) Description 01/18/2025 Refill [facility] MEDICINE [address] [place], [place] [phone] Alvina Mccartney MD 230 [place], [place] [phone] Mild intermittent asthma without complication Social History [...] Description 10/01/2025 11:00 AM EST Office Visit [facility] MEDICINE [address] [place] [address] 10/17/2025 10:00 AM EST Office Visit [facility] OPTOMETRY [address] [place] [address] Marli Valentin, OD 230 [place] [address] documented as of this encounter Visit Diagnoses Diagnosis Mild intermittent asthma without complication documented in this encounter Additional Health Concerns Assessment Noted Time PHQ-9 Depression Total Score: 17 025 9:49 AM EST documented as of this encounter Care Teams Freight Traffic Consultant Relationship Specialty Start Date End Date [place], [place], MD [address] [place] [address] PCP - General Family Medicine 11/01/18 Riky Tanner [address] [facility] [address] Cardiology 10/03/24 Mariella Mcdonnell [address] [address] Sleep Medicine 10/11/24 Jina Vences MD [address] [place] [address] Endocrinology 11/05/24 Shadia Morocho PA [address] [place] [address] Orthopaedic Surgery 11/07/24 Kendall Bates MD [address] [place] [address] General Surgery 11/28/24 Sara Pritchett [address] [place] [address] Pain Medicine 01/16/25 Alfreda Mendez MD [address] [place] [address] Gastroenterology 05/03/25 Tisha Scanlon NP [address] [place] [address] Urology 09/05/25 Carina Baird CNP Neurology 09/18/25 documented as of this encounter
--- OUTSIDE RECORDS SUMMARY | 2025-09-24 18:17 | XMS_ITS | Encounter Summary ---
Author Organization [employer] Address [address] [facility] 7t [place] [address] Care Team Providers Care Fmd Teacher Name Role Phone Alvina Mccartney MD Primary Care Provider [phone]- [phone] Riky Tanner Unavailable Mariella Mcdonnell Unavailable [phone] Jina Vences MD Unavailable Shadia Morocho Unavailable Kendall Bates MD Unavailable Sara Pritchett Unavailable Alfreda Mendez MD Unavailable [phone] Tisha Scanlon NP Unavailable Encounter Details Date Type Department Care Team (Late st Contact Info) Description 04/14/[address] [facility] MEDICINE [address] [place], [place] [phone] Hayley [place] Social History Tobacco Use [...] Description 10/01/2025 11:00 AM EST Office Visit [facility] MEDICINE [address] [place] [address] 10/17/2025 10:00 AM EST Office Visit [facility] OPTOMETRY [address] [place] [address] Homero, Marli, OD 230 [place] [address] documented as of this encounter Procedures Procedure Name Priority Date/Time Associated Diagnosis Comments DIABETES EYE EXAM Routine 04/04/2024 documented in this encounter Results * Diabetes Eye Exam (04/04/2024) [facility] Signature Eye Exam Normal Normal Comment:repeat 5 year 04/04/2024 us Historical Provider HEALTH MAINTENANCE Final Result documented in this encounter Visit Diagnoses Not on filedocumented in this encounter Additional Health Concerns Assessment Noted Time PHQ-9 Depression Total Score: 8 07/26/20 23 10:55 AM EDT documented as of this encounter Care Teams Fmd Teacher Relationship Specialty Start Date End Date Alvina Mccartney MD 230 [place] [address] PCP - General Family Medicine 11/01/18 Riky Tanner [address] [place] [address] Cardiology 10/03/24 Mariella Mcdonnell [address] [address] Sleep Medicine 10/11/24 Jina Vences MD [address] [place] [address] Endocrinology 11/05/24 Shadia Morocho PA [address] [place] [address] Orthopaedic Surgery 11/07/24 Kendall Bates MD [address] [place] [address] General Surgery 11/28/24 Sara Pritchett [address] [place] [address] Pain Medicine 01/16/25 Alfreda Mendez MD [address] [place] [address] Gastroenterology 05/03/25 Tisha Scanlon NP [address] [place] [address] Urology 09/05/25 Carina Baird CNP Neurology 09/18/25 documented as of this encounter
--- OUTSIDE RECORDS SUMMARY | 2025-09-24 18:17 | XMS_ITS | Encounter Summary ---
Author Organization [facility] Address [address] [facility] 7t [place] [address] Care Team Providers Care Certified Social Workers In Health Care Name Role Phone Alvina Mccartney MD Primary Care Provider [phone] Riky Tanner Unavailable Mariella Mcdonnell Unavailable Jina Vences MD Unavailable Shadia Morocho Unavailable Kendall Bates MD Unavailable Sara Pritchett Unavailable Alfreda Mendez MD Unavailable [phone] Tisha Scanlon NP Unavailable Encounter Details Date Type Department Care Team (Late st Contact Info) Description 10/16/2022 Orders Only [facility] MEDICINE [address] [place] [address] Anel Espinoza, RN Social History Tobacco [...] Description 10/01/2025 11:00 AM EST Office Visit [facility] MEDICINE [address] [place] [address] 10/17/2025 10:00 AM EST Office Visit [facility] OPTOMETRY [address] [place] [address] Marli Valentin, OD 230 [place] [address] documented as of this encounter Visit Diagnoses Not on filedocumented in this encounter Care Teams Certified Social Workers In Health Care Relationship Specialty Start Date End Date Alvina Mccartney MD 230 [place] [address] PCP - General Family Medicine 11/01/18 Riky Tanner [address] [place] [address] Cardiology 10/03/24 Mariella Mcdonnell [address] [address] Sleep Medicine 10/11/24 Jina Vences [place] [address] Endocrinology 11/05/24 Shadia Morocho PA [address] [place] [address] Orthopaedic Surgery 11/07/24 Kendall Bates MD [address] [place] [address] General Surgery 11/28/24 Sara Pritchett [address] [place] [address] Pain Medicine 01/16/25 Alfreda Mendez MD [address] [place] [address] Gastroenterology 05/03/25 Tisha Scanlon NP [address] [place] [address] Urology 09/05/25 Carina Baird GLOVE TAGGER Neurology 09/18/25 documented as of this encounter
--- OUTSIDE RECORDS SUMMARY | 2025-09-24 18:17 | XMS_ITS | Encounter Summary ---
Author Organization [employer] Address [address] [facility] 7t [place] [address] Care Team Providers Care Spiral Runner Name Role Phone Alvina Mccartney MD Primary Care Provider [phone]- [phone] Riky Tanner Unavailable Mariella Mcdonnell Unavailable Jina Vences MD Unavailable Shadia Morocho Unavailable Kendall Bates MD Unavailable [phone] Sara Pritchett Unavailable Alfreda Mendez MD Unavailable [phone] Tisha Scanlon NP Unavailable Encounter Details Date Type Department Care Team (Late st Contact Info) Description 09/24/2025 Orders Only GENERIC EXTERNAL DATA DEPARTMENT Provider, [...] the past 12 months, has t he [employer], gas, oil or water company threatened to [...] Description 10/01/2025 11:00 AM EST Office Visit [facility] MEDICINE [address] [place] [address] 10/17/2025 10:00 AM EST Office Visit [facility] OPTOMETRY [address] [place] [address] Homero, Marli, OD 230 [place] [address] documented as of this encounter Procedures Procedure Name Priority Date/Time Associated Diagnosis Comments TSH W/REFLEX TO FT4 Routine 09/24/2025 1 :47 PM EST documented in this encounter Results * TSH with Reflex to Free T4 (09/24/2025 1:47 PM EST) TSH reflex Free T4 2.11 0.32 - 4.0 uIU/mL [facility] 09/24/2025 1:47 PM EST 09/24/2025 1:47 PM EST us Generic External Data Provider LAB BLOOD ORDERAB LES Final Result [facility] [address] [place] [address] [phone] documented in this encounter Visit Diagnoses Not on filedocumented in this encounter Additional Health Concerns Assessment Noted Time PHQ-9 Depression Total Score: 25 025 10:29 AM EDT documented as of this encounter Care Teams Spiral Runner Relationship Specialty Start Date End Date Alvina Mccartney MD [address] [place] [address] PCP - General Family Medicine 11/01/18 Riky Tanenr [address] [facility] 3rd [place] [address] Cardiology 10/03/24 Mariella Mcdonnell [address] [address] Sleep Medicine 10/11/24 J[place] [address] Endocrinology 11/05/24 Shadia Morocho PA [address] [place] [address] Orthopaedic Surgery 11/07/24 Kendall Bates MD [address] [facility] [address] [place] [address] General Surgery 11/28/24 Sara Pritchett [address] [place] [address] Pain Medicine 01/16/25 Alfreda Mendez MD [address]rd [place] [address] Gastroenterology 05/03/25 Tisha Scanlon NP [address] [place] [address] Urology 09/05/25 Carina Baird CUTTER BRAKE LINING Neurology 09/18/25 documented as of this encounter
--- OUTSIDE RECORDS SUMMARY | 2025-09-24 18:17 | XMS_ITS | Encounter Summary ---
Author Organization [employer] Address [address] [facility] 7t [place] [address] Care Team Providers Care Roll Forger Name Role Phone Alvina Mccartney MD Primary Care Provider [phone] Riky Tanner Unavailable Mariella Mcdonnell Unavailable [phone] Jina Vences MD Unavailable Shadia Morocho Unavailable Kendall Bates MD Unavailable Sara Pritchett Unavailable Alfreda Mendez MD Unavailable [phone] Tisha Scanlon NP Unavailable Reason for Visit * Reason Comments Med Refill Encounter Details Date Type Department Care Team (Late st Contact Info) Description 09/18/2025 Refill [facility] MEDICINE [address] [place], [place] [phone] Kath Soto MD 230 [place], [place] [phone] Low back pain at multiple sites Social History Tobacco Use Types Packs/Day Years [...] Description 10/01/2025 11:00 AM EST Office Visit [facility] MEDICINE [address] [place] [address] 10/17/2025 10:00 AM EST Office Visit [facility] OPTOMETRY [address] [place] [address] Homero, Marli, OD 230 [place] [address] documented as of this encounter Visit Diagnoses Diagnosis Low back pain at multiple sites documented in this encounter Additional Health Concerns Assessment Noted Time PHQ-9 Depression Total Score: 25 025 10:29 AM EDT documented as of this encounter Care Teams Roll Forger Relationship Specialty Start Date End Date [place], [place], MD [address] [place] [address] PCP - General Family Medicine 11/01/18 Riky Tanner [address] [facility] [place] [address] Cardiology 10/03/24 Mariella Mcdonnell [address] [address] Sleep Medicine 10/11/24 Jina Vences MD [address] [place] [address] Endocrinology 11/05/24 Shadia Morocho PA [address] [place] [address] Orthopaedic Surgery 11/07/24 Kendall Bates MD [address] [place] [address] General Surgery 11/28/24 Sara Pritchett [address] [place] [address] Pain Medicine 01/16/25 Alfreda Mendez MD [address] [place] [address] Gastroenterology 05/03/25 Tisha Scanlon NP [address] [place] [address] Urology 09/05/25 Carina Baird CNP Neurology 09/18/25 documented as of this encounter
--- OUTSIDE RECORDS SUMMARY | 2025-09-24 18:17 | XMS_ITS | Encounter Summary ---
Author Organization [employer] Address [address] [facility] 7t [place] [address] Care Team Providers Care Economics Analyst Name Role Phone Alvina Mccartney MD Primary Care Provider [phone] Riky Tanner Unavailable Mariella Mcdonnell Unavailable [phone] Jina Vences MD Unavailable Shadia Morocho Unavailable Kendall Bates MD Unavailable Sara Pritchett Unavailable Alfreda Mendez MD Unavailable [phone] Tisha Scanlon NP Unavailable Reason for Visit * Reason Comments Med Refill Encounter Details Date Type Department Care Team (Late st Contact Info) Description 06/05/2024 Refill [facility] MEDICINE 230 [place], [place] [phone] Alvina Mccartney MD [address] [place], [place] [phone] Pain Social History Tobacco Use Types Packs/Day [...] Description 10/01/2025 11:00 AM EST Office Visit [facility] MEDICINE [address] [place] [address] 10/17/2025 10:00 AM EST Office Visit [facility] OPTOMETRY [address] [place] [address] Homero, Marli, OD [address] [place] [address] documented as of this encounter Visit Diagnoses Diagnosis Pain Generalized pain documented in this encounter Additional Health Concerns Assessment Noted Time PHQ-9 Depression Total Score: 8 07/26/20 23 10:55 AM EDT documented as of this encounter Care Teams Economics Analyst Relationship Specialty Start Date End Date Alvina Mccartney MD [address] [place] [address] PCP - General Family Medicine 11/01/18 Riky Tanner [address]rd [place] [address] Cardiology 10/03/24 Mariella Mcdonnell [address] [address] Sleep Medicine 10/11/24 Jina Vences MD [address] [place] [address] Endocrinology 11/05/24 Shadia Morocho PA [address] [place] [address] Orthopaedic Surgery 11/07/24 Kendall Bates MD [address] 3rd [place] [address] General Surgery 11/28/24 Sara Pritchett [address] [place] [address] Pain Medicine 01/16/25 Alfreda Mendez MD [address] 3rd Floor [place] [address] Gastroenterology 05/03/25 Tisha Scanlon NP [address] [place] [address] Urology 09/05/25 Carina Baird LINE DIRECTOR Neurology 09/18/25 documented as of this encounter
--- OUTSIDE RECORDS SUMMARY | 2025-09-24 18:17 | XMS_ITS | Clinical Summary ---
Author Organization [employer] Address [address] [facility] [address] [place] [address] Care Team Providers Care Websphere Commerce Developer Name Role Phone Alvina Mccartney MD Primary Care Provider [phone] Riky Tanner Unavailable Mariella Mcdonnell Unavailable [phone] Jina Vences MD Unavailable Shadia Morocho Unavailable Kendall Bates MD Unavailable Sara Pritchett Unavailable Alfreda Mendez MD Unavailable [phone] Tisha Scanlon NP Unavailable Allergies No known active allergies Medications [...] DAILY RINSE MOUTH AFTER USING. 30 each 11 07/31/20 24 Active celecoxib (CeleBREX) 200 MG [...] or shortness of breath. 18 g 11 5 9:48 AM EST 05/14/20 25 Active acetaminophen (Acetaminophen 8 Hour) 650 MG ER tabletIndications :Low back pain at multiple sites Take 1 tablet (650 mg) by mouth every 8 (eight) hours if needed (pain or fever). Do not crush, chew, or split. 100 tablet 3 05/14/20 25 026 Active cetirizine (ZyrTEC) 10 MG tabletIndications :Allergic rhinitis, unspecified seasonality, unspecified trigger TAKE 1 TABLET BY MOUTH EVERY DAY 90 tablet 3 5 9:48 AM EST 06/18/20 25 Active SUMAtriptan (Imitrex) 50 MG tablet Take 1 tablet (50 mg) by mouth 1 (one) time if needed for migraine for up to 1 dose. May repeat dose once in 2 hours if no relief. Do not exceed 2 doses in 24 hours. 9 tablet 3 5 9:48 AM EST 06/18/20 25 Active butalbital-acetam inophen-caffeine 50-325-40 MG [...] THE MORNING, EVENING, AND BEDTIME 90 capsule 09/03/20 25 Active dexAMETHasone (Decadron) 1 MG tablet TAKE 1 TABLET BY MOUTH ONCE AT 11 pm THE NIGHT BEFORE YOUR bloodwork 11/03/19 25 Active oxybutynin XL (Ditropan-XL) 10 MG 24 hr tablet 09/05/20 25 Active cyclobenzaprine (Flexeril) 5 MG tabletIndications :Low back pain at multiple sites TAKE 1 TABLET BY MOUTH TWICE DAILY 30 tablet 1 09/19/20 25 Active cyclobenzaprine (Flexeril) 5 MG tabletIndications :Low back pain at multiple sites Take 1 tablet (5 mg) by mouth 2 times daily. 30 tablet 1 5 9:48 AM EST 05/14/20 025 Discontinued gabapentin (Neurontin) 400 MG capsule TAKE 1 CAPSULE BY MOUTH THREE TIMES DAILY THREE TIMES DAILY IN THE MORNING, EVENING, AND BEDTIME 90 capsule 08/02/20 025 Discontinued Active Problems Problem Noted Date Diagnosed Date Tremor 09/18/2025 Overview (09/18/2025): Seen by Carina Baird CNP neurology at [facility] 09/17/25, primidone 50 increased to BID Gall bladder polyp 05/03/2025 Overview (06/21/2025): -Seen by Dr. Mendez 04/30/25:epigastric pain, GB polyp on imaging, stable on US,. -repeat US to re eval GB polyp ansd r/o other path -repeat EGD -US ordered by Dr. Mendez 06/21/25 US/US abdomen hargrove w elastography IMPRESSION: Stable gallbladder polyp. Mild [...] (07/11/2025): -seen by Ariel Morocho PA-C of [facility] 11/07/23 -MR/MR knee LT wo con 11/14/24 IMPRESSION: Moderate joint effusion. 2.0 cm probable ganglion cyst posterior to the medial tibial plateau. Moderate patellofemoral osteoarthritis. Mild osteoarthritis of the medial compartment. -referred to pain management 01/01/25 -referred to chronic pain group 01/01/25, note from CIARA Bates from 05/30/25 reviewed -referred to PT 07/11/25 Assessment & Plan (09/11/2025 2:43 PM EST): Pt attended and participated in chronic pain group today - good engagement with group model of care - continue to use combination of non-pharmacological modalities to address pain - followup in 3-4 weeks Assessment & Plan (08/29/2025 12:10 PM EDT): Pt attended and participated in chronic pain group today - good engagement with group model of care - continue to use combination of non-pharmacological modalities to address pain - followup in 2-4 weeks Assessment & Plan (08/23/2025 7:51 PM EDT): Pt attended and participated in chronic pain group today - good engagement with group model of care - continue to use combination of non-pharmacological modalities to address pain - followup in 2-4 weeks Assessment & Plan (08/13/2025 1:27 PM EDT): Pt attended and participated in chronic pain group today - good engagement with group model of care - continue to use combination of non-pharmacological modalities to address pain - followup in 2-4 weeks Assessment & Plan (07/11/2025 10:56 AM EDT): -seen by Ariel Morocho PA-C of [facility] 11/07/23 -MR/MR knee LT [...] EST): -seen by Ariel Morocho PA-C of [facility] 11/07/23 -MR/MR knee LT [...] prescribe lidocaine patches to reevaluate. -seen by [facility] 01/02/25 given left knee steroid [...] describing symptoms of lightheadedness when turning head [id number] which sounds more like vertigo. No clear [...] -recommended Sulfacetamide 01/01/25 Urinary incontinence 07/26/2023 Overview (09/05/2025): -followed by urology, note from Sabas Scanlon NP from 09/05/25 reviewed. Assessment & Plan (07/11/2025 10:56 AM EDT): -referred to Uro/GAUGE OPERATOR for further recommendations and evaluations. 07/11/25 Orders: Referral to Urogynecology; Future Assessment & Plan (07/26/2023 10:41 AM EDT): Referral to Urology done 07/26/2023. Other specified health status 07/21/2023 Overview (07/11/2025): -next comprehensive annual evaluation due after 07/05/25 -eye care facilitated by [facility] -dental home is encouraged -Health care proxy given and filed 07/05/24 Assessment & Plan (07/11/2025 10:56 AM EDT): -next comprehensive annual evaluation due after 07/05/25 -eye care facilitated by [facility] -dental home is encouraged -Health care proxy [...] PM EST): -Previously established with [facility], last available consult note from 2018. -Referral to re-establish care with [facility] Essential hypertension 12/12/2018 Overview (04/23/2025): Followed by Dr. Riky Tanner MD at [facility]. Note from 04/23/25 reviewed. Stress test ordered. -Blood pressure is at goal -Continue lifestyle modifications -Continue current medications -hydrochlorothiazide discontinued by Dr. Tanner 09/2024 Assessment & Plan (07/11/2025 10:56 AM EDT): Followed by Dr. Riky Tanner MD at [facility]. Note from 04/23/25 reviewed. Stress test ordered. -Blood pressure is at goal -Continue lifestyle modifications -Continue current medications -hydrochlorothiazide discontinued by Dr. Tanner 09/2024 Assessment & Plan (01/01/2025 5:24 PM EST): Followed by Dr. Riky Tanner MD at [facility]. Note from 09/2024 [...] per her request 09/15/2023 -She has 2 COMMUNITY DEVELOPMENT COORDINATOR hours per day -currently taking gabapentin and [...] per her request 09/15/2023 -She has 2 COMMUNITY DEVELOPMENT COORDINATOR hours per day -currently taking gabapentin and [...] per her request 09/15/2023 -She has 2 COMMUNITY DEVELOPMENT COORDINATOR 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 -Encouraged acupuncture clinic 09/15/2023, hand out given -Rx for cane per her request 09/15/2023 -She has 2 COMMUNITY DEVELOPMENT COORDINATOR hours per week Assessment & Plan (07/21/2023 1:56 PM EDT): Explained that FM is a type of nerve hypersensitivity and that physical activity is not contraindicated; in fact, it may improve symptoms recommended our group acupuncture program, stress reduction, etc. Obstructive sleep apnea syndrome 12/12/2018 Overview (10/11/2024): Followed by [facility]. Sleep study 10/07/18 reveals severe SILVER. -Currently using CPAP nightly She started 11/05/2018 -seen by CIARA Lepe on 10/09/24 continue CPAP 14 cmH2O. Supplies are though [facility] Assessment & Plan (07/11/2025 10:56 AM EDT): Followed by [facility]. Sleep study 10/07/18 reveals severe SILVER. -Currently using CPAP nightly She started 11/05/2018 -seen by CIARA Lepe on 10/09/24 continue CPAP 14 cmH2O. Supplies are though [facility] Assessment & Plan (01/01/2025 5:24 PM EST): Followed by [facility]. Sleep study 10/07/18 reveals severe SILVER. -Currently using CPAP nightly She started 11/05/2018 -seen by CIARA Lepe on 10/09/24 continue CPAP 14 cmH2O. Supplies are though [facility] Assessment & Plan (07/21/2023 1:56 PM EDT): Followed by [facility]. Sleep study 10/07/18 reveals severe SILVER. -Currently using CPAP nightly She started 11/05/2018 Allergic rhinitis 04/20/2012 Anxiety 04/20/2012 Carpal tunnel syndrome 04/20/2012 Overview (08/14/2025): NCS 2019 NERVE CONDUCTION EMG STUDY: This [...] range of motion, strengthening of bilateral hands -08/13/25 XR/XR hand RT min 3V Unremarkable examination of the right hand. Assessment & Plan (07/05/2024 10:39 AM EDT): [...] therapist. No SI/HI. Reports going to [place], where she sees her specialists. Assessment & Plan (07/11/2025 10:56 AM EDT): At visit in 11/2017, we stopped depo, as we presumed was causing depression Depression has not improved, as she is being seen by psychiatrist and therapist. No SI/HI. Reports going to [place] [facility], where she sees her specialists. Assessment & Plan (01/01/2025 5:41 PM EST): At visit in 11/2017, we stopped depo, as we presumed was causing depression Depression has not improved, as she is being seen by psychiatrist and therapist. No SI/HI. Reports going to [place] [facility], where she sees her specialists. Assessment & [...] therapist. No SI/HI. Reports going to [place] [facility], where she sees her specialists. Resolved Problems [...] organization. Date Type Department Care Team Description 09/24/2025 Orders Only GENERIC EXTERNAL DATA DEPARTMENT Provider, Generic External Data 09/18/2025 Refill [facility] [address] [place] [address] Kath Soto MD Low back pain at multiple sites 09/10/2025 11:00 AM EST Office Visit [facility] [place] [address] Kath Soto MD Fibromyalgia (Primary Dx); Chronic pain of left knee 09/10/2025 Travel 09/03/2025 Refill [facility] [place] [place] [address] Alvina Mccartney MD 09/03/2025 Travel 08/27/2025 11:00 AM EDT Office Visit [facility] [place] [address] Kath Soto MD Fibromyalgia (Primary Dx); Chronic pain of left knee 08/27/2025 Travel 08/26/2025 Travel 08/20/2025 11:00 AM EDT Office Visit [facility] [place] [address] Kath Soto MD Chronic pain of left knee (Primary Dx); Fibromyalgia 08/20/2025 Travel 08/13/2025 11:00 AM EDT Office Visit [facility] [place] [address] Kath Soto MD Fall, initial encounter (Primary Dx); Fibromyalgia; Chronic pain of left knee 08/13/2025 Travel 08/06/2025 11:45 AM EDT Office Visit [facility] [place] [address] Kath Soto MD Chronic pain of left knee (Primary Dx); Fibromyalgia 08/06/2025 Travel 08/06/2025 Orders Only [facility] External Provider, [facility] Adrenal nodule (CMS/HCC) (Primary Dx) 08/02/2025 Refill [facility] [place] [address] Alvina Mccartney MD 07/30/2025 11:00 AM EDT Office Visit [facility] [place] [address] Kath Soto MD Fibromyalgia (Primary Dx) 07/30/2025 Travel 07/20/[address] [address] Alvina Mccartney MD Durable Medical Equipment (DME Request: Cane) 07/16/2025 11:00 AM EDT Office Visit [address] [address] Kath Soto MD Fibromyalgia (Primary Dx) 07/16/2025 Travel 07/15/2025 Travel 07/11/2025 10:30 AM EDT Office Visit [address] [address] Alvina Mccartney MD Prediabetes (Primary Dx); Essential hypertension; Hypercholesteremia; Adrenal nodule (CMS/HCC); Obstructive sleep apnea syndrome; Mild intermittent asthma without complication; Fibromyalgia; Low back pain at multiple sites; Chronic pain of left knee; Urinary incontinence, unspecified type; Ingrown hair; Major depression single episode, in partial remission (CMS/HCC); Positive depression screening; Overweight; Dietary counseling; Exercise counseling; Other specified health status 07/11/2025 Travel 07/10/[address] [address] Alvina Mccartney MD chart prep 07/04/2025 Travel 07/03/2025 Patient Outreach [address] [address] Alvina Mccartney MD Pre-visit Planning (SDOH screening was completed on 01/01/2025) 06/26/2025 Refill [facility] [address] [place] [address] Alvina Mccartney MD 06/25/2025 11:00 AM EDT Office Visit [address] [address] Kath Soto MD Fibromyalgia (Primary Dx); Low back pain at multiple sites; Chronic pain of left knee 06/25/2025 Travel from Last 3 Months Immunizations Immunization [...] Description 10/01/2025 11:00 AM EST Office Visit [facility] [address] [place] [address] 10/17/2025 10:00 AM EST Office Visit [facility] [address] [place] [address] Homero, Marli, OD [address] [place] [address] Health Maintenance Due Date Last Done Comments CT Colonography 1972 FIT DNA/Cologuard 1972 FIT 1972 FOBT 1972 Sigmoidoscopy 1972 RSV Patients and Patients Aged 60 years or older (1 - Risk 50-74 years 1-dose series) 2022 Zoster Vaccines (1 of 2) 2022 COVID-19 Vaccine (3 - season) 2025 02/14/2021, 01/17/2021 Influenza Vaccine (#1) 2025 , 07/26/2023, 08/10/2019, Additional history exists Alcohol/Substance Use Screening 01/01/2026 01/01/2025 SDOH Screening 01/01/2026 01/01/2025 Depression Monitoring 01/08/2026 07/11/2025, 025 Mammogram 02/07/2026 02/07/2025, 04/0 07/2025, 12/01/2023, Additional history exists Diabetes: Hemoglobin A1C 07/11/2026 025, 07/05/2024, 04/25/2024, Additional history exists Disability Screening 07/11/2026 07/11/2025 Tobacco Screening 09/11/2026 09/11/2025 Cervical Cancer Screening 07/26/2028 HPV/Cotest 07/26/2028 07/26/2023, 04/01/2017 Pap Smear 07/26/2028 07/26/2023, 04/01/2017 Colonoscopy 04/04/2029 04/04/2024, 08/21/2019 Colorectal Cancer Screening 04/04/2029 Lipid Panel 07/08/2029 07/08/2024, 07/29/2023 DTaP/Tdap/Td Vaccines (3 - Td or Tdap) 07/26/2033 07/26/2023, 07/28/2012, 07/13/1997 Hepatitis B Vaccines Completed 08/10/2019, 12/12/2018, 08/07/2002 [...] FT4 Routine 09/24/2025 1 :47 PM EST XR HAND 3+ VIEWS RIGHT Routine 08/13/2025 12:01 PM EDT Fall, initial encounter POCT CREATININE GFR Routine 08/06/2025 9 :06 AM EDT Adrenal nodule (CMS/HCC) CT ADRENAL WO/W IV CON Routine 08/06/2025 9:06 AM EDT POCT GLYCATED HEMOGLOBIN, TOTAL Routine 07/11/2025 10:29 AM EDT Prediabetes POCT GLUCOSE Routine 07/11/2025 10:19 AM EDT Prediabetes BI US BREAST LIMITED LEFT Routine 02/07/2025 [...] Recently Relevant to Health Maintenance Results * TSH with Reflex to Free T4 (09/24/2025 1:47 PM EST) TSH reflex Free T4 2.11 0.32 - 4.0 uIU/mL [facility] 09/24/2025 1:47 PM EST 09/24/2025 1:47 PM EST us Generic External Data Provider LAB BLOOD ORDERAB LES Final Result Performing Organization Address City/State/[facility] Co de Phone Number [facility] [address] [place] [phone] * XR Hand 3+ Views Right (08/13/2025 12:01 PM EDT) Anatomical Region Laterality Modality Upper Extremities, Hand Right Radiogra phic Imaging 08/13/2025 12:0 1 PM EDT Narrative 08/14/2025 7:14 AM EDT [address] [address] XRay Report Signed Patient: Lety Bates MR#: [id number] 1571 : 1970 Acct:[id number] Age/Sex: 55 / F ADM Date: 08/13/25 Loc: HO.HHCX Attending Dr: Kath Soto MD Ordering Physician: Kath Soto Date of Service: 08/13/25 Procedure(s): XR hand RT min 3V Accession Number(s): [id number] cc: Alvina Mccartney MD; Kath Soto Reason for Exam: fall and swollen joint EXAMINATION: XR HAND 3 OR MORE VIEWS RIGHT HISTORY: fall and swollen joint COMPARISON: There are no prior studies available for comparison. FINDINGS: Four views of the right hand are submitted. Osseous mineralization is normal. There is no fracture or dislocation. The joint spaces are preserved. The soft tissues are unremarkable. XR/XR hand RT min 3V IMPRESSION: Unremarkable examination of the right hand. Electronically signed by: Elder Esparza MD 08/14/2025 07:12 AM EDT RP Dictated By: Elder Esparza MD Signed By: <Electronically signed by Elder Esparza MD in OV> 08/14/25 07 DD/ 1201 TD/TT: 08/13/25 1150 Harvest Contractor: Procedure Note Donotuseinterpreter, Image - 08/14/[address] [address] XRay Report Signed Patient: Luann Bates#: [id number] 1571 : 1970Acct:[id number] Age/Sex: 55 / FADM Date: 08/13/25 Loc: HO.HHCX Attending Dr: Kath Soto MD Ordering Physician: Kath Soto Date of Service: 08/13/25 Procedure(s): XR hand RT min 3V Accession Number(s): [id number] cc: Alvina Mccartney MD; Kath Soto Reason for Exam: fall and swollen joint EXAMINATION: XR HAND 3 OR MORE VIEWS RIGHT HISTORY: fall and swollen joint COMPARISON: There are no prior studies available for comparison. FINDINGS: Four views of the right hand are submitted. Osseous mineralization is normal. There is no fracture or dislocation. The joint spaces are preserved. The soft tissues are unremarkable. XR/XR hand RT min 3V IMPRESSION: Unremarkable examination of the right hand. Electronically signed by: Elder Esparza MD 08/14/2025 07:12 AM EDT RP Dictated By: Elder Esparza MD Signed By: <Electronically signed by Elder Esparza MD in OV> 08/14/257[address] DD/ 120 TD/TT: 08/13/25 1150 Harvest Contractor: Kath Soto MD IMG XR PROCEDURES Final Result * CT adrenal wo/w IV con (08/06/2025 9:06 AM EDT) Anatomical Region Laterality Modality Kidney Computed Tomogra phy 08/06/2025 9:06 AM EDT Narrative 08/06/2025 10:04 AM EDT [address] [address] [address] Scan Report Signed Patient: Lety Bates MR#: [id number] 1571 : 1970 Acct:[id number] Age/Sex: 55 / F ADM Date: 08/06/25 Loc: HO.CT Attending Dr: Jina Vences MD Ordering Physician: Jina Vences MD Date of Service: 08/06/25 Procedure(s): CT adrenal wo/w IV con Accession Number(s): [id number] cc: Alvina Mccartney MD; Jina Vences MD Report Number: [id number]: Total DLP = 637.00 mGy-cm Reason for [...] 08/06/25 1001 DD/ 0906 TD/TT: 08/06/25 0943 Harvest Contractor: Procedure Note Donotuseinterpreter, Image - 08/06/[address] [address] [address] Scan Report Signed Patient: Leidy BatesnMR#: [id number] 1571 : 1970Acct:[id number] Age/Sex: 55 / FADM Date: 08/06/25 Loc: HO.CT Attending Dr: Jina Vences MD Ordering Physician: Jina Vences MD Date of Service: 08/06/25 Procedure(s): CT adrenal wo/w IV con Accession Number(s): [id number] cc: Alvina Mccartney MD; Jina Vences MD Report Number: [id number]: Total DLP = 637.00 mGy-cm Reason for [...] 08/06/25 1001 DD/ 0906 TD/TT: 08/06/25 0943 Harvest Contractor: [facility] External Provider IMG CT PROCEDURES Final Result * POCT Creatinine GFR (08/06/2025 9:06 AM EDT) POCT Creatinine 0.9 0.5 - 1.4 mg/dL [facility] GFR POC >60 [facility] Comment:Chronic Kidney Disea se: Estimated GFR < 60 mL/min/1.47h8Zipjra Kidney Disease: Estimated GFR < 15 mL/min/1.73m2 08/06/2025 9:06 AM EDT 08/14/2025 9:20 AM EDT Narrative [facility] - 08/14/2025 9:22 AM EDT [phone] Generic External Data Provider LAB POINT OF CARE TEST DOCKED DEVICE ORDERABLES Final Result [facility] [address] [place] [address] [phone] * POCT Hgb A1c (07/11/2025 10:29 AM EDT) Hemoglobin A1C 5.6 4.0 - 5.7 % QC Media Lot # [id number] Lot# Expiration Date [id number] Blood 07/11/2025 10:2 9 AM EDT Alvina Mccartney MD POINT OF CARE TEST ENTER/E DIT ORDERABLES Final Result * POCT Glucose (07/11/2025 10:19 AM EDT) Glucose Blood, POC 117 60 - 200 mg/dL QC Media Lot # [id number] Lot# Expiration Date [id number] Blood Capillary blood specimen / Unknown 07/11/2025 10:19 AM EDT Alvina Mccartney MD POINT OF CARE TEST ENTER/E DIT ORDERABLES Final Result * BI US Breast Limited Left (02/07/2025 2:30 PM EDT) Anatomical Region Laterality Modality Breast Left Ultrasound 02/07/2025 2:3 0 PM EDT Narrative 02/07/2025 2:[address] PM [address]T [address] [place] [address] Ultrasound Report Signed Patient: Lety Bates MR#: [id number] 1571 : 1970 Acct:[id number] Age/Sex: 54 / F ADM Date: 02/07/25 Loc: HO.MAMMO Attending Dr: Alvina Mccartney MD Ordering Physician: Alvina Mccartney MD Date of Service: 02/07/25 Procedure(s): US breast LT limited mamm only Accession Number(s): [id number] cc: Alvina Mccartney MD EXAMINATION: MM DIAGNOSTIC [...] 02/07/25 1455 DD/ 1430 TD/TT: 02/07/25 1444 Harvest Contractor: Procedure Note Donotuseinterpreter, Image - 02/07/20[facility] [address] [place], [place] [address] Ultrasound Report Signed Patient: Leidy BatesUTNori#: [id number] 1571 : 1970Acct:[id number] Age/Sex: 54 / FADM Date: 02/07/25 Loc: HO.MAMMO Attending Dr: Alvina Mccartney MD Ordering Physician: Alvina Mccartney MD Date of Service: 02/07/25 Procedure(s): US breast LT limited mamm only Accession Number(s): [id number] cc: Alvina Mccartney MD EXAMINATION: MM DIAGNOSTIC [...] 02/07/25 1455 DD/ 1430 TD/TT: 02/07/25 1444 Harvest Contractor: Alvina Mccartney MD IMG US PROCEDURES Final Re sult * (ABNORMAL) Lipid Panel, Standard (07/08/2024 9:02 AM EDT) Triglycerides 101 <150 mg/dL [facility] Comment:Desirable Triglyceri de: less than 150 mg/dLBorderline High Triglyceride 150-199 mg/dLHigh Triglyceride: 200-499 mg/dLVery High Triglyceride: greater than or equal to 5OO mg/dL Cholesterol 184 <200 mg/dL [facility] Comment:Desirable Cholestero l: less than 200 mg/dLBorderline High Cholesterol: 200-239 mg/dLHigh Cholesterol: greater than 239 mg/dL LDL Cholesterol Calculated 128(H) <100 mg/dL [facility] Comment:Desirable LDL: less than 100 mg/dLNear Optimal/Above Optimal LDL: 110- 129 mg/dLBorderline High LDL: 130-159 mg/dLHigh LDL: 160-189 mg/dLVery High LDL: greater than or equal to 190 mg/dL HDL Cholesterol 36(L) >40 mg/dL [facility] Comment:Desirable HDL: great er than 40 mg/dL Note: This HDL assay may give artificially low results in patients with liver disease. Blood Venous blood specimen / Unknown 07/08/2024 9:02 AM EDT 07/08/2024 9:02 AM EDT Alvina Mccartney MD LAB BLOOD ORDERABLES Final Result [facility] [address] [place] [phone] * Hm Colonoscopy (04/04/2024) Colonoscopy Normal Normal 04/04/2024 Mil Alvarado MD HEALTH MAINTENANCE Final Result * Hepatitis C Ab (07/29/2023 9:23 AM EDT) Hepatitis C Antibody Nonreactive Nonreactive [facility] Comment:Antibodies to HCV no t detected; does not exclude early acuteHCV infection. Blood 07/29/2023 9:23 AM EDT 07/29/2023 11:00 AM EDT us Alvina Mccartney MD LAB BLOOD ORDERABLES Final Result Performing Organization Address [facility]/ZIP Co de Phone Number [facility] [address] [place] [address] [phone] * HPV mRNA E6/E7 w/Reflex to HPV Genotypes 16, 18/45 (07/26/2023 10:57 AM EDT) HPV nRNA E6/E7 Not Detected Not Detected [facility] Comment:Methodology: Transcr iption-Mediated AmplificationThis assay detects E6/E7 viral messenger RNA (mRNA) from 14high-risk HPV types (16,18,31,33,35,39,45,51,52,56,58,59,66,68).Cervical sources are required for HPV testing.If a vaginal source from a patient who has had atotal hysterectomy with removal of cervix wassubmitted, please contact the testing laboratoryfor alternative testing options.For additional information, please refer [email or web address](This link if provided for information/educational purposes only.)THIS TEST WAS PERFORMED AT:[employer] [place] [address] [id number] CALIX MD HPV mRNA E6/E7 [facility] HPV 16 RNA [facility] HPV 18/45 RNA [facility] 07/26/2023 10:5 7 AM EDT 07/27/2023 9:00 AM EDT Alvina Mccartney MD LAB CYTOLOGY ORDERABLES Fi nal Result Performing Organization Address City/[facility]/ZIP Co de Phone Number [facility] [address] [place] [address] [phone] * Pap Smear (07/26/2023 10:57 AM EDT) 07/26/2023 10:5 7 AM EDT 07/27/2023 9:00 AM EDT Narrative [facility] - 08/02/2023 1:35 PM EDT ----- ------- Name: Lety Bates Age/Sex: 53/F : 1970 Unit#: [id number] Attend Dr: Alvina Mccartney MD Re07/26/23 Status: [facility] REF Location: [facility] Disch: ----- ------- SPEC : [id number] RECD: 07/27/23 STATUS: CHRISTINA LACY NUM: [id number] AMANDA: 07/26/23-[address] [facility] [address]: Alvina Mccartney MD ENTERED: 07/27/23 SP TYPE: Pap Smr OTHR DR: ORDERED: Pap Smear Interpretation Satisfactory for evaluation. Negative for intraepithelial lesion or malignancy. HPV mRNA E6/E7: NOT DETECTED This assay detects E6/E7 viral messenger RNA (mRNA) from 14 high-risk HPV types (16, 18, 31, 33, 35, 39, 45, 51, 52, 56, 58, 59, 66, 68) HPV testing performed by [facility], [place], [place]. See reference laboratory pion of the EMR for entire report. Clinical Information LMP: Unknown date Previous PAP test: Unknown date/findings Material Received ThinPrep-Vaginal/Cervical ----- ------- Signed (signature on file) JUSTIN Arambula (ASCP) 08/02/23 1335 ----- ------- END OF REPORT Alvina Mccartney MD LAB CYTOLOGY ORDERABLES Fi nal Result [facility] [address] [place] [address] [phone] * HIV 1/2 Antigen and Antibody (01/21/2021) HIV Ag/Ab Nonreactive Historical Provider HEALTH MAINTENANCE Final Result from Last 3 Months or Most Recently Relevant to Health Maintenance Insurance [facility] Advance Directives Documents on File Type Date Recorded 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 Advance Directives and Living Will 07/07/2024 1:01 PM Health Care Proxy Care Teams Websphere Commerce Developer Relationship Specialty Start Date End Date Shoshone, MD Alvina [address] [place] [id number] PCP - General Family Medicine 11/01/18 Riky Tanner [address]rd [place] [address] Cardiology 10/03/24 Mariella Mcdonnell [facility] [address] [address] Sleep Medicine 10/11/24 Jina Vences MD [address] [place] [address] Endocrinology 11/05/24 Shadia Morocho PA [address] [place] [address] Orthopaedic Surgery 11/07/24 Kendall Bates MD [address]rd [place] [address] General Surgery 11/28/24 Sara Pritchett [address] [place] [address] Pain Medicine 01/16/25 Alfreda Mendez MD [address] [place] [address] Gastroenterology 05/03/25 Tisha Scanlon NP [address] [place] [address] Urology 09/05/25 Carina Baird SAP PORTAL CONSULTANT Neurology 09/18/25
--- OUTSIDE RECORDS SUMMARY | 2025-09-24 18:17 | XMS_ITS | Encounter Summary ---
Author Organization [employer] Address [address] [facility] 7t [place] [address] Care Team Providers Care Counter Roller Name Role Phone Alvina Mccartney MD Primary Care Provider [phone] Riky Tanner Unavailable Mariella Mcdonnell Unavailable Jina Vences MD Unavailable Shadia Morocho Unavailable Kendall Bates MD Unavailable Sara Pritchett Unavailable Alfreda Mendez MD Unavailable [phone] Tisha Scanlon NP Unavailable Reason for Visit * Reason Comments Med Refill Encounter Details Date Type Department Care Team (Late st Contact Info) Description 12/01/2024 Refill [facility] [address] [place], [place] [phone] Alvina Mccartney MD [address] [place], [place] [phone] Pain Social History Tobacco Use Types Packs/Day [...] Description 10/01/2025 11:00 AM EST Office Visit [facility] [address] [place] [address] 10/17/2025 10:00 AM EST Office Visit [facility] OPT[facility] [address] [place] [address] Homero, Marli, OD [address] [place] [address] documented as of this encounter Visit Diagnoses Diagnosis Pain Generalized pain documented in this encounter Additional Health Concerns Assessment Noted Time PHQ-9 Depression Total Score: 8 07/26/20 23 10:55 AM EDT documented as of this encounter Care Teams Counter Roller Relationship Specialty Start Date End Date Alvina Mccartney MD [address] [place] [address] PCP - General Family Medicine 11/01/18 Riky Tanner [address] [place] [address] Cardiology 10/03/24 Mariella Mcdonnell [address] [phone] Sleep Medicine 10/11/24 Jina Vences MD [address] [place] [address] Endocrinology 11/05/24 Shadia Morocho PA [address] [place] [address] Orthopaedic Surgery 11/07/24 Kendall Bates MD [address]rd [place] [address] General Surgery 11/28/24 Sara Pritchett [address] [place] [address] Pain Medicine 01/16/25 Alfreda Mendez MD [address] 3rd Floor [place] [address] Gastroenterology 05/03/25 Tisha Scanlon NP [address] [place] [address] Urology 09/05/25 Carina Baird FOUR SLIDE OPERATOR Neurology 09/18/25 documented as of this encounter
--- OUTSIDE RECORDS SUMMARY | 2025-09-24 18:18 | XMS_ITS | Encounter Summary ---
Author Organization [employer] Address [address] [facility] 7t [place] [address] Care Team Providers Care Leaf Tier Name Role Phone Alvina Mccartney MD Primary Care Provider [phone] Riky Tanner Unavailable Mariella Mcdonnell Unavailable [phone] Jina Vences MD Unavailable Shadia Morocho Unavailable Kendall Bates MD Unavailable Sara Pritchett Unavailable Alfreda Mendez MD Unavailable [phone] Tisha Scanlon NP Unavailable Encounter Details Date Type Department Care Team (Late st Contact Info) Description 04/22/2023 Orders Only [facility] [address] [place], [place] [phone] Alvina Mccartney MD [address] [place], [place] [phone] Dizzy (Primary Dx) Social History Tobacco Use [...] Description 10/01/2025 11:00 AM EST Office Visit [facility] [address] [place] [address] 10/17/2025 10:00 AM EST Office Visit [facility] OPTOMETRY [address] [place] [address] Homero, Marli, OD [address] [place] [address] documented as of this encounter Visit Diagnoses Diagnosis Dizzy- Primary Dizziness and giddiness documented in this encounter Care Teams Leaf Tier Relationship Specialty Start Date End Date Alvina Mccartney MD [address] [place] [address] PCP - General Family Medicine 11/01/18 Riky Tanner [address] [place] [address] Cardiology 10/03/24 Mariella Mcdonnell [address] [phone] Sleep Medicine 10/11/24 Jina Vences MD [address] [place] [address] Endocrinology 11/05/24 Shadia Morocho PA [address] [place] [address] Orthopaedic Surgery 11/07/24 Kendall Bates MD [address] [place] [address] General Surgery 11/28/24 Sara Pritchett [address] [place] [address] Pain Medicine 01/16/25 Alfreda Mendez MD [address] [place] [address] Gastroenterology 05/03/25 Tisha Scanlon NP [address] [place] [address] Urology 09/05/25 Carina Baird SAVE ALL OPERATOR Neurology 09/18/25 documented as of this encounter
== END 2025-09-24 13:32 | disposition home or self-care (01) ==
LOC: HO.LAB 13:31
PROVIDERS: PCP Family Medicine; Visit Provider Registered Nurse
DX: R25.1 Tremor, unspecified (principal)
CPT/HCPCS: 36415; 84443

== ENCOUNTER 2025-10-02 08:57 | Outpatient (AMB) | payer OTHER, SELFPAY ==
--- OUTSIDE RECORDS SUMMARY | 2025-10-01 11:00 | XMS_ITS | Encounter Summary ---
Author Organization [employer] Address [address] [facility] 7t [place] [address] Care Team Providers Care Lehr Operator Name Role Phone Alvina Mccartney MD Primary Care Provider [phone] Riky Tanner Unavailable Mariella Mcdonnell Unavailable [phone] Jina Vences MD Unavailable Shadia Morocho Unavailable Kendall Bates MD Unavailable Sara Pritchett Unavailable Alfreda Mendez MD Unavailable [phone] Tisha Scanlon NP Unavailable Encounter Details Date Type Department Care Team (Late st Contact Info) Description 10/01/2025 11:00 AM EST Office Visit [facility] [address] [place], [place] [phone] Kath Soto MD [address] [place], [place] [phone] Fibromyalgia (Primary Dx); Chronic pain of left [...] Progress Notes * Kath Soto MD - 10/01/2025 11:00 AM EST Subjective: Lety Bates is a 54 y.o. female who presents to the office for Chronic Pain Group visits. Initial Group visit: 01/15/25 Group Visit Number: 20 Last PCP visit: [facility] 01/01/25 Group Confidentiality last signed: 01/15/25 Group Topic: Anti-Inflammatory Chronic Pain diet Updates: She made a kathrine three-layered cake for her aunt's 50th birthday, which she felt very good about Had the SPRINT device placed for her L knee 04/05/25 and it was very helpful. It was removed and painhas increased since. She called Pain Management at [facility] to inquire as to next steps. 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 -referred to PT 07/11/25 Relevant Medications dexAMETHasone (Decadron) 1 MG tablet Chronic pain of left knee Overview -seen by Ariel Morocho PA-C of [facility] 11/07/23 -MR/MR knee LT wo con 11/14/24 IMPRESSION: Moderate joint effusion. 2.0 cm probable ganglion cyst posterior to the medial tibial plateau. Moderate patellofemoral osteoarthritis. Mild osteoarthritis of the medial compartment. -referred to pain management 01/01/25 -referred to chronic pain group 01/01/25, note from CIARA Bates from 05/30/25 reviewed -referred to PT 07/11/25 Current Assessment & Plan Pt attended and participated in chronic pain group today - good engagement with group model of care - continue to use combination of non-pharmacological modalities to address pain - followup in 3-4 weeks Relevant Medications dexAMETHasone (Decadron) 1 MG tablet Follow up: 1-2 weeks for Group Chronic [facility]. Follow up as scheduled with PCP, sooner as needed. documented in this encounter Plan of Treatment Upcoming Encounters Date Type Department Care Team (Late st Contact Info) Description 10/17/2025 10:00 AM EST Office Visit [facility] [address] [place] [address] Homero, Marli, OD [address] [place] [address] documented as of this encounter Visit Diagnoses Diagnosis Fibromyalgia- Primary Unspecified myalgia and myositis Chronic pain of left knee documented in this encounter Additional Health Concerns Assessment Noted Time PHQ-9 Depression Total Score: 25 025 10:29 AM EDT documented as of this encounter Care Teams Lehr Operator Relationship Specialty Start Date End Date Alvina Mccartney MD [address] [place] [address] PCP - General Family Medicine 11/01/18 Riky Tanner [address]rd [place] [address] Cardiology 10/03/24 Mariella Mcdonnell [address] [address] Sleep Medicine 10/11/24 Jina Vences MD [address] [place] [address] Endocrinology 11/05/24 Shadia Morocho PA [address] [place] [address] Orthopaedic Surgery 11/07/24 Kendall Bates MD [address] [place] [address] General Surgery 11/28/24 Sara Pritchett [address] [place] [address] Pain Medicine 01/16/25 Alfreda Mendez MD [address] [place] [address] Gastroenterology 05/03/25 Tisha Scanlon NP [address] [place] [address] Urology 09/05/25 Carina Baird ELEMENTARY ART TEACHER Neurology 09/18/25 documented as of this encounter
--- NOTE | 2025-10-02 08:59 | A.OFFVIS_ITS ---
Vital Signs 3 10/02/25 09:00 Height 5 ft 3 in Weight 171 lb 15.369 oz BMI 30.5 BP 124/80 Blood Pressure Location Rt brachial Position Sitting Pulse 75 Pulse Source Pulse Oximeter Pulse Oximetry (%) 96 Oxygen Delivery Method Room Air Intake Visit Reasons: Adrenal nodule Intake Note: Patient presents here today for Adrenal Nodule follow-up after completion of work-up. Last seen by Dr Vangie MD: * Adrenal CT Scan Completed on 08/06/2026 L Nailing Machine Operator Automatic Required: Yes Nailing Machine Operator Automatic Language: Neck Pinner Services: Nailing Machine Operator Automatic Offered & Declined (Dr Wolfe Speak Fluent Portuguese) Nailing Machine Operator Automatic Name: Elias [id number] Information Interpreted: non-clinical & clinical Accompanied by: Self / Same As Patient Allergies No Known Allergies Allergy (Verified 10/02/25 09:00) HPI Comments Details: 54-year-old female here today for follow-up for 1 cm left adrenal incidentaloma. Last seen by Dr. Vences on 12/01/2024. This 1st time seeing this patient CT abdomen 08/07/2024 showed a 9 mm isodense nodule measuring 40 Hounsfield units. Non IV contrast study. I reviewed the images myself. She also had a CT abdomen from 2020 which also showed this nodule and nodule remained stable in size from then. Symptoms: HTN is well controlled on lisinopril 20 mg daily, HCTZ 25 mg daily, propranolol 80 mg daily and amlodipine 10 mg daily HTN diagnosed in 30s , no history of SD or stroke Father of stroke due to HTN emergency ( at age 71) Maternal cousin at agr 36 from stroke Maternal uncle age 34 from stroke Weight stable over past 2 years No history of DM, is prediabetic No fractures No hirsutism,severe acne , Does report headaches , chronic , says she has a history of migraines SILVER on CPAP , headaches improved with CPAP use denies any hx of proximal muscle weakness, ,no abdominal striae reports easy bruisability no skin infection or hyperpigmentation. -No truncal obesity,facial plethora or recent mood change. Has hx of depression. well controlled on meds - no episodic palpitaions, pallor,, diaphoresis . -Does report episodic abd pain , associated with bowel movement Labs from 11/06/2024 showed renin of 0.85, aldosterone of 4, DHEA-S of 74, cortisol baseline 11.1 acth 16, normal plasma metanephrine, normetanephrine levels. Dexamethasone suppression test showed a dexamethasone level of 260 with cortisol of less than 1. Interval history She reports back pain She reports overall controlled HTN She reports variable weight, but excessive weight gain No recent changes in her medical history Physical exam General: sitting comfortably in no acute distress HEENT: normocephalic/atraumatic, Neck: supple, symmetrical, no thyromegaly , does have dorsocervical and supraclavicular fat pads Cardiac: normal heart sounds Pulm: normal breath sounds B/L, no added breath sounds Abd: not distended, no tenderness Extremities: no edema, no signs of myxedema Neuro: AAO x3, Speech: normal, no facial droop, moving all 4 extremities Laboratory Tests 07/08/24 09:02 Sodium 141 Potassium 3.8 Creatinine 0.72 Estimated GFR > 60 TSH 3.71 Laboratory Tests 11/06/24 11/10/24 07:50 08:10 Sodium 142 Potassium 4.0 Estimated GFR > 60 Random Glucose 75 Calcium 9.8 Renin 0.85 Aldosterone 4 DHEA Sulfate 74 Random Cortisol 11.1 < 1.0 ACTH 16 <5 L Plasma Free Metaneph 49 Plasma Free Normeta 81 Plas Total Metaneph [address] ABDOMEN PELVIS ADRENALS WITHOUT THEN WITH IV CONTRAST 08/06/25 COMPARISON: Comparison is made with the prior examination dated 11/09/2024. TECHNIQUE: CT scan of the abdomen was performed before and after the intravenous administration of 85 mL Omnipaque 350. Postcontrast images were obtained through the adrenal glands in the portal venous and delayed phases to calculate adrenal washout. Coronal and sagittal reformatted images were generated and reviewed. Oral contrast material was not administered per department protocol. This CT exam was performed with one or more of the following dose reduction techniques: automated exposure control, adjustment of the mA and/or kV according to patient size, use of iterative reconstruction technique. DLP: 637 mGy-cm ABDOMEN: LOWER CHEST: The visualized lung bases are clear. There is no pleural effusion. There is a 1.7 cm left breast mass demonstrating internal calcifications, consistent with a fibroadenoma. CARDIOVASCULATURE: The heart is normal in size. There is no pericardial effusion. LIVER: The liver is normal in size and contour. No liver mass is identified. The hepatic and portal veins are patent. GALLBLADDER / BILE DUCTS: The gallbladder is unremarkable. There is no intra or extrahepatic biliary ductal dilatation. SPLEEN: The spleen is normal in size. No focal splenic lesion is identified. PANCREAS: The pancreas is unremarkable in appearance. ADRENAL GLANDS: The right adrenal gland is unremarkable. Again seen is a 9 mm left adrenal mass. The mass measures 48.1 HU on the unenhanced examination, 79.7 HU on the immediate postcontrast images, and 65.9 HU on the delayed images. This calculates to a 43.7% washout which is indeterminate. However, the nodule has been stable in size since at least 09/24/2021, highly suggestive of benignity. KIDNEYS/RETROPERITONEUM: No renal calculi are identified. There is no hydronephrosis. No renal masses are identified. LYMPH NODES: No abdominal or pelvic lymphadenopathy. VASCULATURE: The abdominal aorta is normal in caliber. MESENTERY/PERITONEUM: No free fluid. No masses. There is no free intraperitoneal gas. STOMACH: The stomach is collapsed, limiting evaluation. SMALL BOWEL: The visualized small bowel is normal in caliber. COLON: The visualized portion of the colon is unremarkable. BONES / SOFT TISSUES: No suspicious bony or soft tissue abnormalities. IMPRESSION: 9 mm left adrenal mass which is indeterminate for adenoma. However, the nodule has been stable since at least 09/24/2021, highly suggestive of benignity. CT ABDOMEN WITHOUT CONTRAST 08/07/24 CLINICAL INFORMATION: Follow-up adrenal gland mass. COMPARISON: CT dated August 27, 2023. TECHNIQUE: Contiguous axial thin section helical images of the abdomen were performed without contrast. The data set was reformatted in the coronal and sagittal planes and reviewed on an independent workstation. This CT examination was performed using dose optimization techniques as appropriate, variously including the following: *Automated exposure control *Adjustment of mA and/or kV according to patient size (this includes techniques or standardized protocols for targeted exams where dose is matched to indication/reason for exam; i.e. extremities or head) *Use of iterative reconstruction technique DLP: 274 mGy-cm FINDINGS: Submitted for interpretation on October 06, 2024. Left adrenal gland: There is a 9 mm isodense nodule measuring 40 Hounsfield units in the non-IV contrast exam. Right adrenal gland: No nodular lesion. Inadequate evaluation of the intra-abdominal organs and vascular structures due to lack of IV contrast. No intestinal obstruction pattern. No ascites. No pneumoperitoneum. No pneumatosis intestinalis. Lymphadenopathy, mediastinum Liver measures 15 cm. No pericholecystic fluid collection or gallbladder wall thickening. No intrahepatic or extrahepatic biliary ductal dilatation. Spleen measures 7 cm. No peripancreatic fluid collection or main pancreatic ductal dilatation. No hydronephrosis or nephrolithiasis. No aneurysm in the abdominal aorta. Fat-containing umbilical hernia. No acute airspace disease or gross pulmonary nodules in the included lungs. No acute fracture or listhesis. No lytic or blastic lesions. CT/CT abdomen wo IV con IMPRESSION: 9 mm nodule, left adrenal gland. Incomplete evaluation. Lymphadenopathy, mesenteric. Fat-containing umbilical hernia. Fleischner guidelines were followed. Electronically signed by: Jonatan Marcelino MD 10/06/2024 10:[address] ABDOMEN AND PELVIS WITH CONTRAST 09/24/21 CLINICAL INFORMATION: Upper abdominal pain with nausea. COMPARISON: CT abdomen and pelvis noncontrast 06/02/2018, ultrasound abdomen 09/24/2021; 3-D digital breast tomosynthesis 10/30/2020. TECHNIQUE: Multidetector volumetric images were obtained from the superior aspect of the liver through the pubic symphysis following administration 85 mL of Omnipaque 350 intravenous contrast. Sagittal and coronal reformatted images were obtained on the technologist's workstation. Oral contrast: No This CT examination was performed using dose optimization techniques as appropriate, variously including the following: *Automated exposure control *Adjustment of mA and/or kV according to patient size (this includes techniques or standardized protocols for targeted exams where dose is matched to indication/reason for exam; i.e. extremities or head) *Use of iterative reconstruction technique DLP: 661 mGy-cm FINDINGS: LUNG BASES: The visualized lung bases are unremarkable. There is a known fibroadenoma left breast with biopsy clip marker, similar to prior mammography. LIVER, GALLBLADDER, AND BILIARY TREE: The liver is normal in size, shape, and attenuation. No focal hepatic lesion or biliary ductal dilatation is present. The gallbladder is unremarkable with no evidence of radiopaque gallstones, gallbladder wall thickening, or obvious pericholecystic inflammatory changes. PANCREAS: Unremarkable. SPLEEN: Unremarkable. ADRENAL GLANDS: Right adrenal normal. There is a stable solid nodule left adrenal under 1 cm (31 HU attenuation on prior noncontrast CT and 85 HU on current exam with contrast). No additional imaging follow-up recommended. KIDNEYS AND URETERS: The kidneys are normal in size and enhance symmetrically. There is no hydronephrosis, hydroureter, calculi, or perinephric stranding. There is incidental 0.8 cm cyst medial mid right kidney. No additional imaging follow-up required. BLADDER: Unremarkable. GASTROINTESTINAL TRACT: There is no bowel obstruction or focal inflammatory changes in the bowel or mesentery. The appendix is normal. There are fluid-filled loops of small bowel of normal caliber. No pneumatosis or free air. No ascites or fluid collection. ABDOMINAL WALL: Small fat-containing umbilical hernia under 3 cm. LYMPH NODES: No lymphadenopathy. VASCULAR: Unremarkable. PELVIC VISCERA: Unremarkable. OSSEOUS STRUCTURES: Unremarkable. CT/CT abdomen pelvis w con IMPRESSION: 1. Scattered fluid-filled small bowel of normal caliber. No wall thickening or obstruction. Normal appendix. 2. No cholelithiasis or ductal dilatation. No hydronephrosis or perinephric stranding. 3. No hydronephrosis or calculi. [facility] Medical History Tremor Adrenal incidentaloma Back pain Pre-diabetes GERD (gastroesophageal reflux disease) Fibromyalgia Bipolar disorder Insomnia Anxiety Depression Syncope Mild intermittent asthma NAFLD (nonalcoholic fatty liver disease) Vertigo Sleep apnea IBS (irritable bowel syndrome) Arthritis HTN (hypertension) Surgical History History of umbilical hernia repair (~11/14/24) Hx of colonoscopy History of esophagogastroduodenoscopy (EGD) History of hysterectomy Family History Father Diabetes Arthritis Hypertension Hypercholesteremia Cancer Mother Diabetes Hypertension Arthritis Cancer Son Asthma Son Asthma Heart problem Social History Are you a primary progressive care manager to a significant other at home: No Do you presently have visiting nurse or other home services: No Alcohol intake: never Patient Tobacco Use Status: Never used Tobacco Current occupational status: retired Physical Exam Vital Signs: Last Vital Signs Pulse 75 10/02/25 09:00 BP 124/80 10/02/25 09:00 Pulse Ox 96 10/02/25 09:00 Oxygen Delivery Method Room Air 10/02/25 09:00 BMI result Body Mass Index 30.5 Assessment & Plan Assessment & Plan (1) Adrenal incidentaloma: Code(s): E27.8 - Other specified disorders of adrenal gland Category: Medical Plan: 54-year-old female coming in today for follow up of left 1 cm adrenal incidentaloma. She had CT scan in August 2024 which showed 9 mm left-sided adrenal nodule with 40 Hounsfield unit, which is stable from size compared to CT scan in 2020 when this measured 9 mm, with precontrast 31 Hounsfield units and postcontrast 85 Hounsfield units. Given stability in size this is reassuring of most likely a benign nodule. However Hounsfield units are on the higher side hence I would plan to repeat a CT focused on adrenal gland with the adrenal gland washout in 08/2025. Labs from 11/06/2024 showed renin of 0.85, aldosterone of 4, DHEA-S of 74, cortisol baseline 11.1 acth 16, normal plasma metanephrine, normetanephrine levels. Dexamethasone suppression test showed a dexamethasone level of 260 with cortisol of less than 1. ? We discussed that at this point, given the stability of the nodule size, but considering the high HUs, there is always concern for malignancy, and patient reports that she has aunts that has history of ?adrenal cancer. We discussed that options at this point are to obtain MRI to better characterize the lesion or refer her for endocrine surgery. She decided to do MRI first. From the hormone stand point, the nodule has been hormonally inactive and she has not clinical features concerning for Analy's, primary hyperldosteronism or pheochromocytoma. Guidelines are not clear after 3 years in what to do with testing, we decided to not further test, but monitor for clinical manifestations of excess cortisol. Plan: Order MRI of adrenal gland to rule out malignancy Stop testing for cortisol excess unless clinical evidence suggests it Follow up in 6 months Plan 40 minutes spent reviewing previous records, labs, imaging, education and documenting in the chart Orders: Orders 2 MR abdomen wo con Today E27.8 - Other specified disorders of adrenal gland Coding Level of Care Code Complex visit Add On [id number] Diagnoses Adrenal incidentaloma E27.8
[2025-10-02 09:00] VITALS: BP 124/80; PULSE 75; O2SAT 96; BMI 30.5
--- OUTSIDE RECORDS SUMMARY | 2025-10-02 09:20 | XMS_ITS | Clinical Summary ---
Author Organization [employer] Address [address] [facility] 7t [place] [address] Care Team Providers Care Cena Name Role Phone Alvina Mccartney MD Primary Care Provider [phone] Riky Tanner Unavailable Mariella Mcdonnell Unavailable Jina Vences MD Unavailable Shadia Morocho Unavailable Kendall Bates MD Unavailable Sara Pritchett Unavailable Alfreda Mendez MD Unavailable Tisha Scanlno NP Unavailable Allergies No known active allergies [...] mouth in the morning. 06/26/20 25 Active dexAMETHasone (Decadron) 1 MG tablet TAKE 1 TABLET BY MOUTH ONCE AT 11 pm THE NIGHT BEFORE YOUR bloodwork 11/03/19 25 Active oxybutynin XL (Ditropan-XL) 10 MG 24 hr tablet 09/05/20 25 Active cyclobenzaprine (Flexeril) 5 MG tabletIndications :Low back pain at multiple sites TAKE 1 TABLET BY MOUTH TWICE DAILY 30 tablet 1 09/19/20 25 Active gabapentin (Neurontin) 400 MG capsule TAKE 1 CAPSULE BY MOUTH THREE TIMES DAILY IN THE MORNING, EVENING, AND BEDTIME 90 capsule 10/01/20 25 Active cyclobenzaprine (Flexeril) 5 MG tabletIndications :Low back pain at multiple sites Take 1 tablet (5 mg) by mouth 2 times daily. 30 tablet 1 5 9:48 AM EST 05/14/20 25 025 Discontinued gabapentin (Neurontin) 400 MG capsule TAKE 1 CAPSULE BY MOUTH THREE TIMES DAILY THREE TIMES DAILY IN THE MORNING, EVENING, AND BEDTIME 90 capsule 08/02/20 25 025 Discontinued gabapentin (Neurontin) 400 MG capsule TAKE 1 CAPSULE BY MOUTH THREE TIMES DAILY IN THE MORNING, EVENING, AND BEDTIME 90 capsule 09/03/20 25 025 Discontinued Active Problems Problem Noted Date Diagnosed Date Tremor 09/18/2025 Overview (09/18/2025): Seen by Carina Baird CNP neurology at [facility] 09/17/25, primidone 50 increased to BID Gall [...] (07/11/2025): -seen by Ariel Morocho PA-C of [facility] 11/07/23 -MR/MR knee LT wo [...] EDT): -seen by Ariel Morocho PA-C of [facility] 11/07/23 -MR/MR knee LT wo [...] EST): -seen by Ariel Morocho PA-C of [facility] 11/07/23 -MR/MR knee LT wo [...] prescribe lidocaine patches to reevaluate. -seen by [facility] 01/02/25 given left knee steroid [...] describing symptoms of lightheadedness when turning head [id number] which sounds more like vertigo. No clear [...] Plan (07/11/2025 10:56 AM EDT): -referred to Uro/MANAGER OF APPLICATIONS DEVELOPMENT for further recommendations and evaluations. 07/11/25 Orders: Referral to Urogynecology; Future Assessment & Plan (07/26/2023 10:41 AM EDT): Referral to Urology done 07/26/2023. Other specified health status 07/21/2023 Overview (07/11/2025): -next comprehensive annual evaluation due after 07/05/25 -eye care facilitated by [facility] -dental home is encouraged -Health care proxy given and filed 07/05/24 Assessment & Plan (07/11/2025 10:56 AM EDT): -next comprehensive annual evaluation due after 07/05/25 -eye care facilitated by [facility] -dental home is encouraged -Health care [...] (10/20/2022 9:42 PM EST): -Previously established with [facility], last available consult note from 2019. -Referral to re-establish care with [facility] Essential hypertension 12/12/2018 Overview (04/23/2025): Followed by Dr. Riky Tanner MD at [facility]. Note from 04/23/25 reviewed. Stress test ordered. -Blood pressure is at goal -Continue lifestyle modifications -Continue current medications -hydrochlorothiazide discontinued by Dr. Tanner 09/2024 Assessment & Plan (07/11/2025 10:56 AM EDT): Followed by Dr. Riky Tanner MD at [facility]. Note from 04/23/25 reviewed. Stress test ordered. -Blood pressure is at goal -Continue lifestyle modifications -Continue current medications -hydrochlorothiazide discontinued by Dr. Tanner 09/2024 Assessment & Plan (01/01/2025 5:24 PM EST): Followed by Dr. Riky Tanner MD at [facility]. Note from 09/2024 reviewed. [...] per her request 09/15/2023 -She has 2 [employer] hours per day -currently taking gabapentin and [...] per her request 09/15/2023 -She has 2 [employer] hours per day -currently taking gabapentin and [...] per her request 09/15/2023 -She has 2 [employer] 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 Obstructive sleep apnea syndrome 12/12/2018 Overview (10/11/2024): Followed by [facility]. Sleep study 10/07/18 reveals severe SILVER. -Currently using CPAP nightly She started 11/05/2018 -seen by CIARA Lepe on 10/09/24 continue CPAP 14 cmH2O. Supplies are though [facility] Assessment & Plan (07/11/2025 10:56 AM EDT): Followed by [facility]. Sleep study 10/07/18 reveals severe SILVER. -Currently using CPAP nightly She started 11/05/2018 -seen by CIARA Lepe on 10/09/24 continue CPAP 14 cmH2O. Supplies are though [facility] Assessment & Plan (01/01/2025 5:24 PM EST): Followed by [facility]. Sleep study 10/07/18 reveals severe SILVER. -Currently using CPAP nightly She started 11/05/2018 -seen by CIARA Lepe on 10/09/24 continue CPAP 14 cmH2O. Supplies are though [facility] Assessment & Plan (07/21/2023 1:56 PM EDT): Followed by [facility]. Sleep study 10/07/18 reveals severe SILVER. [...] [facility], where she sees her specialists. Assessment & Plan (07/11/2025 10:56 AM EDT): At visit in 11/2017, we stopped depo, as we presumed was causing depression Depression has not improved, as she is being seen by psychiatrist and therapist. No SI/HI. Reports going to [facility], where she sees her specialists. Assessment & Plan (01/01/2025 5:41 PM EST): At visit in 11/2017, we stopped depo, as we presumed was causing depression Depression has not improved, as she is being seen by psychiatrist and therapist. No SI/HI. Reports going to [facility] [place], where she sees her specialists. Assessment & [...] and therapist. No SI/HI. Reports going to [facility], where she sees her specialists. Resolved Problems [...] organization. Date Type Department Care Team Description 10/01/2025 11:00 AM EST Office Visit [facility] [place] [address] Kath Soto MD Fibromyalgia (Primary Dx); Chronic pain of left knee 10/01/2025 Refill [facility] [place] [address] Alvina Mccartney MD 09/24/2025 Orders Only GENERIC EXTERNAL DATA DEPARTMENT Provider, Generic External Data 09/18/2025 Refill [facility] [place] [address] Kath Soto MD Low back pain at multiple sites 09/10/2025 11:00 AM EST Office Visit [facility] [place] [address] Kath Soto MD Fibromyalgia (Primary Dx); Chronic pain of left knee 09/10/2025 Travel 09/03/2025 Refill [facility] [place] [address] Alvina Mccartney MD 09/03/2025 Travel 08/27/2025 11:00 AM EDT Office Visit [facility] [place] [address] Kath Soto MD Fibromyalgia (Primary Dx); Chronic pain of left knee 08/27/2025 Travel 08/26/2025 Travel 08/20/2025 11:00 AM EDT Office Visit [facility] [place] [address] Kath Soto MD Chronic pain of left knee (Primary Dx); Fibromyalgia 08/20/2025 Travel 08/13/2025 11:00 AM EDT Office Visit [facility] [place] [address] Kath Soto MD Fall, initial encounter (Primary Dx); Fibromyalgia; Chronic pain of left knee 08/13/2025 Travel 08/06/2025 11:45 AM EDT Office Visit [facility] [place] [address] Kath Soto MD Chronic pain of left knee (Primary Dx); Fibromyalgia 08/06/2025 Travel 08/06/2025 Orders Only [facility] External Provider, [facility] Adrenal nodule (CMS/HCC) (Primary Dx) 08/02/2025 Refill [facility] [address] [place] [address] Alvina Mccartney MD 07/30/2025 11:00 AM EDT Office Visit [address] [address] Kath Soto MD Fibromyalgia (Primary Dx) 07/30/2025 Travel 07/20/[address] [address] Alvina Mccartney MD Durable Medical Equipment (DME Request: Cane) 07/16/2025 11:00 AM EDT Office Visit [address] [address] Kath Soto MD Fibromyalgia (Primary Dx) 07/16/2025 Travel 07/15/2025 Travel 07/11/2025 10:30 AM EDT Office Visit [address] [address] Alvina Mccartney MD Prediabetes (Primary Dx); Essential hypertension; Hypercholesteremia; Adrenal nodule (CMS/HCC); Obstructive sleep apnea syndrome; Mild intermittent asthma without complication; Fibromyalgia; Low back pain at multiple sites; Chronic pain of left knee; Urinary incontinence, unspecified type; Ingrown hair; Major depression single episode, in partial remission (CMS/HCC); Positive depression screening; Overweight; Dietary counseling; Exercise counseling; Other specified health status 07/11/2025 Travel 07/10/[address] [address] Alvina Mccartney MD chart prep 07/04/2025 Travel 07/03/2025 Patient Outreach [address] [address] Alvina Mccartney MD Pre-visit Planning (SDOH screening was completed on 01/01/2025) from Last 3 Months Immunizations Immunization Administration [...] Description 10/17/2025 10:00 AM EST Office Visit [facility] [address] [place] [address] Homero, Marli, OD [address] [place] [address] Health Maintenance Due Date Last Done Comments [...] exists Disability Screening 07/11/2026 07/11/2025 Tobacco Screening 10/01/2026 10/01/2025 Cervical Cancer Screening 07/26/2028 HPV/Cotest 07/26/2028 07/26/2023, [...] Free T4 2.11 0.32 - 4.0 uIU/mL [facility] 09/24/2025 1:47 PM EST 09/24/2025 1:47 PM EST us Generic External Data Provider LAB BLOOD ORDERAB LES Final Result Performing Organization Address City/State/[facility] Co de Phone Number [facility] [address] [place] [phone] * XR Hand 3+ Views Right (08/13/2025 12:01 PM EDT) Anatomical Region Laterality Modality Upper Extremities, Hand Right Radiogra phic Imaging 08/13/2025 12:0 1 PM EDT Narrative 08/14/2025 7:14 AM EDT [address] [address] XRay Report Signed Patient: Lety Bates MR#: [id number] 1571 : 1970 Acct:[id number] Age/Sex: 55 / F ADM Date: 08/13/25 Loc: HO.HHCX Attending Dr: Kath Soto MD Ordering Physician: Kath Soto Date of Service: 08/13/25 Procedure(s): XR hand RT min 3V Accession Number(s): [id number] cc: Alvina Mccartney MD; Kath Soto Reason [...] in OV> 08/14/257[address] DD/ 120 TD/TT: 08/13/25 115 Station Gateman: Procedure Note Donotuseinterpreter, Image - 08/14/[address] [address] XRay Report Signed Patient: Leidy BatesNCR#: [id number] 1571 : 1970Acct:[id number] Age/Sex: 55 / FADM Date: 08/13/25 Loc: HO.HHCX Attending Dr: Kath Soto MD Ordering Physician: Kath Soto Date of Service: 08/13/25 Procedure(s): XR hand RT min 3V Accession Number(s): [id number] cc: Alvina Mccartney MD; Kath Soto Reason [...] Esparza MD in OV> 08/14/25 07 DD/ 120 TD/TT: 08/13/25 115 [address] Gateman: Kath Soto MD IMG XR PROCEDURES Final Result * CT adrenal wo/w IV con (08/06/2025 9:06 AM EDT) Anatomical Region Laterality Modality Kidney Computed Tomogra phy 08/06/2025 9:06 AM EDT Narrative 08/06/2025 10:04 AM EDT [address] [address] [address] Scan Report Signed Patient: Lety Bates MR#: [id number] 1571 : 1970 Acct:[id number] Age/Sex: 55 / F ADM Date: 08/06/25 Loc: HO.CT Attending Dr: Jina Vences MD Ordering Physician: Jina Vences MD Date of Service: 08/06/25 Procedure(s): CT adrenal wo/w IV con Accession Number(s): [id number] cc: Alvina Mccartney MD; Jina Vences MD Report Number: [id number]: Total DLP = 637.00 mGy-cm Reason for [...] 08/06/25 1001 DD/ 0906 TD/TT: 08/06/25 0943 Station Gateman: Procedure Note Donotuseinterpreter, Image - 08/06/[address] [address] [address] Scan Report Signed Patient: Luann Bates#: [id number] 1571 : 1970Acct:[id number] Age/Sex: 55 / FADM Date: 08/06/25 Loc: HO.CT Attending Dr: Jina Vences MD Ordering Physician: Jina Vences MD Date of Service: 08/06/25 Procedure(s): CT adrenal wo/w IV con Accession Number(s): [id number] cc: Alvina Mccartney MD; Jina Vences MD Report Number: [id number]: Total DLP = 637.00 mGy-cm Reason for [...] 08/06/25 1001 DD/ 0906 TD/TT: 08/06/25 0943 Station Gateman: [facility] External Provider IMG CT PROCEDURES Final Result * POCT Creatinine GFR (08/06/2025 9:06 AM EDT) POCT Creatinine 0.9 0.5 - 1.4 mg/dL [facility] GFR POC >60 [facility] Comment:Chronic Kidney Disea se: Estimated GFR < 60 mL/min/1.04g9Ryfbpt Kidney Disease: Estimated GFR < 15 mL/min/1.73m2 08/06/2025 9:06 AM EDT 08/14/2025 9:20 AM EDT Narrative [facility] - 08/14/2025 9:22 AM EDT [id number] Generic External Data Provider LAB POINT OF CARE TEST DOCKED DEVICE ORDERABLES Final Result [facility] [address] [place] [phone] * POCT Hgb A1c (07/11/2025 10:29 [...] Media Lot # [id number] Lot# Expiration Date [id number] Blood Capillary blood specimen / Unknown 07/11/2025 10:19 AM EDT Alvina Mccartney MD POINT OF CARE TEST ENTER/E DIT ORDERABLES Final Result * BI US Breast Limited Left (02/07/2025 2:30 PM EDT) Anatomical Region Laterality Modality Breast Left Ultrasound 02/07/2025 2:30 PM EDT Narrative 02/07/2025 2:58 PM EDT [address] [place] [address] Ultrasound Report Signed Patient: Lety Bates MR#: [id number] 1571 : 1970 Acct:[id number] Age/Sex: 54 / F ADM Date: 02/07/25 Loc: HO.MAMMO Attending Dr: Alvina Mccartney MD Ordering Physician: Alvina Mccartney MD Date of Service: 02/07/25 Procedure(s): US breast LT limited mamm only Accession Number(s): [id number] cc: Alvina Mccartney MD EXAMINATION: MM DIAGNOSTIC [...] 02/07/25 1455 DD/ 1430 TD/TT: 02/07/25 1444 Station Gateman: Procedure Note Donotuseinterpreter, Image - [facility]07[facility] [address] [place] [address] Ultrasound Report Signed Patient: Leidy BatesNCR#: [id number] 1571 : 1970Acct:[id number] Age/Sex: 54 / FADM Date: 02/07/25 Loc: HO.MAMMO Attending Dr: Alvina Mccartney MD Ordering Physician: Alvina Mccartney MD Date of Service: 02/07/25 Procedure(s): US breast LT limited mamm only Accession Number(s): [id number] cc: Alvina Mccartney MD EXAMINATION: MM DIAGNOSTIC [...] 02/07/25 1455 DD/ 1430 TD/TT: 02/07/25 1444 Station Gateman: us Alvina Mccartney MD IMG US PROCEDURES Final Re sult * (ABNORMAL) Lipid Panel, Standard (07/08/2024 9:02 AM EDT) Triglycerides 101 <150 mg/dL [facility] Comment:Desirable Triglyceri de: less than 150 mg/dLBorderline High Triglyceride 150-199 mg/dLHigh Triglyceride: 200-499 mg/dLVery High Triglyceride: greater than or equal to 5OO mg/dL Cholesterol 184 <200 mg/dL [facility] Comment:Desirable Cholestero l: less than 200 mg/dLBorderline High Cholesterol: 200-239 mg/dLHigh Cholesterol: greater than 239 mg/dL LDL Cholesterol Calculated 128(H) <100 mg/dL [facility] Comment:Desirable LDL: less than 100 mg/dLNear Optimal/Above Optimal LDL: 110- 129 mg/dLBorderline High LDL: 130-159 mg/dLHigh LDL: 160-189 mg/dLVery High LDL: greater than or equal to 190 mg/dL HDL Cholesterol 36(L) >40 mg/dL [facility] Comment:Desirable HDL: great er than 40 mg/dL Note: This HDL assay may give artificially low results in patients with liver disease. Blood Venous blood specimen / Unknown 07/08/2024 9:02 AM EDT 07/08/2024 9:02 AM EDT Alvina Mccartney MD LAB BLOOD ORDERABLES Final Result [facility] [address] [place] [phone] * Hm Colonoscopy (04/04/2024) Colonoscopy Normal Normal 04/04/2024 Mil Alvarado MD HEALTH MAINTENANCE Final Result * Hepatitis C Ab (07/29/2023 9:23 AM EDT) Hepatitis C Antibody Nonreactive Nonreactive [facility] Comment:Antibodies to HCV no t detected; does not exclude early acuteHCV infection. Blood 07/29/2023 9:23 AM EDT 07/29/2023 11:00 AM EDT us Alvina Mccartney MD LAB BLOOD ORDERABLES Final Result Performing Organization Address City/[facility]/ZIP Co de Phone Number [facility] [address] [place] [phone] * HPV mRNA E6/E7 w/Reflex to HPV Genotypes 16, 18/45 (07/26/2023 10:57 AM EDT) HPV nRNA E6/E7 Not Detected Not Detected [facility] Comment:Methodology: Transcr iption-Mediated AmplificationThis assay detects E6/E7 viral messenger RNA (mRNA) from 14high-risk HPV types (16,18,31,33,35,39,45,51,52,56,58,59,66,68).Cervical sources are required for HPV testing.If a vaginal source from a patient who has had atotal hysterectomy with removal of cervix wassubmitted, please contact the testing laboratoryfor alternative testing options.For additional information, please refer [email or web address].[employer]/faq/NJF758x5(This link if provided for information/educational purposes only.)THIS TEST WAS PERFORMED AT:[email or web address] [place] [phone] CALIX MD HPV mRNA E6/E7 [facility] HPV 16 RNA [facility] HPV 18/45 RNA [facility] 07/26/2023 10:5 7 AM EDT 07/27/2023 9:00 AM EDT Alvina Mccartney MD LAB CYTOLOGY ORDERABLES Fi nal Result Performing Organization Address [facility]/ZIP Co de Phone Number [facility] [address] [place] [phone] [phone] * Pap Smear (07/26/2023 10:57 AM EDT) 07/26/2023 10:5 7 AM EDT 07/27/2023 9:00 AM EDT Narrative [facility] - 08/02/2023 1:35 PM EDT ----- ------- Name: Lety Bates Age/Sex: 53/F : 1970 Unit#: [id number] Attend Dr: Alvina Mccartney MD Re07/26/23 Status: DEP [facility]: ----- ------- SPEC : [id number] RECD: 07/27/23 STATUS: CHRISTINA LACY NUM: [id number] AMANDA: 07/26/[address] [facility] [address]: Alvina Mccartney MD ENTERED: 07/27/23 SP TYPE: Pap Smr OT DR: ORDERED: Pap Smear Interpretation Satisfactory for evaluation. Negative for intraepithelial lesion or malignancy. HPV mRNA E6/E7: NOT DETECTED This assay detects E6/E7 viral messenger RNA (mRNA) from 14 high-risk HPV types (16, 18, 31, 33, 35, 39, 45, 51, 52, 56, 58, 59, 66, 68) HPV testing performed by [facility], [place], [place]. See reference laboratory pion of the EMR for entire report. Clinical Information LMP: Unknown date Previous PAP test: Unknown date/findings Material Received ThinPrep-Vaginal/Cervical ----- ------- Signed (signature on file) JUSTIN Arambula (ASCP) 08/02/23 1335 ----- ------- END OF REPORT Alvina Mccartney MD LAB CYTOLOGY ORDERABLES nal Result [facility] [address] [place] [phone] * HIV 1/2 Antigen and Antibody (01/21/2021) HIV Ag/Ab Nonreactive Historical Provider HEALTH MAINTENANCE Final Result from Last 3 Months or Most Recently Relevant to Health Maintenance Insurance CARE Advance Directives Documents on File Type Date Recorded Patient Media Librarian Expl anation Advance Directives and Living Will 07/07/2024 1:01 PM Health Care Proxy Care Teams Cena Relationship Specialty Start Date End Date [place], [place] Alvina [address] [place] [address] PCP - General Family Medicine 11/01/18 Riky Tanner [address] [place], [place] Cardiology 10/03/24 Mariella Mcdonnell [address] [phone] Sleep Medicine 10/11/24 Jina Vences MD [address] [place] [address] Endocrinology 11/05/24 Shadia Morocho PA [address] [place] [address] Orthopaedic Surgery 11/07/24 Kendall Bates MD [address] [place], [place] General Surgery 11/28/24 Sara Pritchett [address] [place] [address] Pain Medicine 01/16/25 Alfreda Mendez MD [address]rd [place] [address] Gastroenterology 05/03/25 Tisha Scanlon NP [address] [place] [address] Urology 09/05/25 Carina Baird BEREAVEMENT COUNSELOR Neurology 09/18/25
--- OUTSIDE RECORDS SUMMARY | 2025-10-02 09:20 | XMS_ITS | Encounter Summary ---
Author Organization [employer] Address [address] [facility] 7t [place] [address] Care Team Providers Care Payment Rep Name Role Phone Alvina Mccartney MD Primary Care Provider [phone] Riky Tanner Unavailable Mariella Mcdonnell Unavailable [phone] Jina Vences MD Unavailable Shadia Morocho Unavailable Kendall Bates MD Unavailable Sara Pritchett Unavailable Alfreda Mendez MD Unavailable [phone] Tisha Scanlon NP Unavailable Reason for Visit * Reason Comments Med Refill Encounter Details Date Type Department Care Team (Late st Contact Info) Description 10/01/2025 Refill [facility] [address] [place], [place] [phone] Alvina Mccartney MD [address] [place], [place] [phone] Social History Tobacco Use Types Packs/Day Years [...] Description 10/17/2025 10:00 AM EST Office Visit [facility] [address] [place] [address] Homero, Marli, OD [address] [place] [address] documented as of this encounter Visit Diagnoses Not on filedocumented in this encounter Additional Health Concerns Assessment Noted Time PHQ-9 Depression Total Score: 25 025 10:29 AM EDT documented as of this encounter Care Teams Payment Rep Relationship Specialty Start Date End Date Alvina Mccartney MD [address] [place] [address] PCP - General Family Medicine 11/01/18 Riky Tanner [address] [place] [address] Cardiology 10/03/24 Mariella Mcdonnell [address] [phone] Sleep Medicine 10/11/24 Jina Vences MD [address] [facility] [address] Endocrinology 11/05/24 Shadia Morocho PA [address] [place] [address] Orthopaedic Surgery 11/07/24 Kendall Bates MD [address]rd [place] [address] General Surgery 11/28/24 Sara Pritchett [address] [place] [address] Pain Medicine 01/16/25 Alfreda Mendez MD [address] [facility] [place] [address] Gastroenterology 05/03/25 Tisha Scanlon NP [address] [place] [address] Urology 09/05/25 Carina Baird DIRECTOR MEDICARE SALES Neurology 09/18/25 documented as of this encounter
--- OUTSIDE RECORDS SUMMARY | 2025-10-02 09:20 | XMS_ITS | Encounter Summary ---
Author Organization [employer] Address 75 [facility] 7t [place] [address] Care Team Providers Care Media Center Specialist Name Role Phone Alvina Mccartney MD Primary Care Provider [phone]- [phone] Riky Tanner Unavailable Mariella Mcdonnell Unavailable Jina Vences MD Unavailable Shadia Morocho Unavailable Kendall Bates MD Unavailable [phone] Sara Pritchett Unavailable Alfreda Mendez MD Unavailable [phone] Tisha Scanlon NP Unavailable Reason for Visit * Reason Comments Med Refill Encounter Details Date Type Department Care Team (Late st Contact Info) Description 12/01/2024 Refill [facility] MEDICINE [address] [place], [place] [phone] Alvina Mccartney MD [address] [place], [place] [phone] Pain Social History Tobacco Use Types Packs/Day [...] Description 10/17/2025 10:00 AM EST Office Visit [facility] OPTOMETRY [address] [place] [address] Homero, Marli, OD 230 [place] [address] documented as of this encounter Visit Diagnoses Diagnosis Pain Generalized pain documented in this encounter Additional Health Concerns Assessment Noted Time PHQ-9 Depression Total Score: 8 07/26/20 23 10:55 AM EDT documented as of this encounter Care Teams Media Center Specialist Relationship Specialty Start Date End Date Alvina Mccartney MD [address] [place] [address] PCP - General Family Medicine 11/01/18 Riky Tanner [address] 3rd [place] [address] Cardiology 10/03/24 Mariella Mcdonnell [address] [address] Sleep Medicine 10/11/24 Jina Vences MD [address] [place] [address] Endocrinology 11/05/24 Shadia Morocho PA [address] [place] [address] Orthopaedic Surgery 11/07/24 Kendall Bates MD [address] 3rd [place] [address] General Surgery 11/28/24 Sara Pritchett [address] [place] [address] Pain Medicine 01/16/25 Alfreda Mendez MD [address] 3rd [place] [address] Gastroenterology 05/03/25 Tisha Scanlon NP [address] [place] [address] Urology 09/05/25 Carina Baird CNP Neurology 09/18/25 documented as of this encounter
--- OUTSIDE RECORDS SUMMARY | 2025-10-02 09:20 | XMS_ITS | Encounter Summary ---
Author Organization [employer] Address 75 [facility] 7t [place] [address] Care Team Providers Care Rn New Grad Name Role Phone Alvina Mccartney MD Primary Care Provider [phone] Riky Tanner Unavailable Mariella Mcdonnell Unavailable Jina Vences MD Unavailable Shadia Morocho Unavailable Kendall Bates MD Unavailable [phone] Sara Pritchett Unavailable Alfreda Mendez MD Unavailable [phone] Tisha Scanlon NP Unavailable Encounter Details Date Type Department Care Team (Late st Contact Info) Description 04/14/2024 Abstract [facility] MEDICINE 230 [place], [place] [phone] Hayley Briscoe [place] Social History Tobacco Use [...] Visit [facility] OPTOMETRY [address] [place] [address] Homero, Marli, OD 230 [place] [address] documented as of this encounter Procedures Procedure [...] as of this encounter Care Teams Rn New Grad Relationship Specialty Start Date End Date Alvina Mccartney MD 230 [place] [address] PCP - General Family Medicine 11/01/18 Riky Tanner [address]rd [place] [address] Cardiology 10/03/24 Mariella Mcdonnell [address] [address] Sleep Medicine 10/11/24 Jina Vences MD [address] [place] [address] Endocrinology 11/05/24 Shadia Morocho PA [address] [place] [address] Orthopaedic Surgery 11/07/24 Kendall Bates MD [address] [place] [address] General Surgery 11/28/24 Sara Pritchett [address] [place] [address] Pain Medicine 01/16/25 Alfreda Mendez MD [address] [place] [address] Gastroenterology 05/03/25 Tisha Scanlon NP [address] [place] [address] Urology 09/05/25 Carina Baird CNP Neurology 09/18/25 documented as of this encounter
--- OUTSIDE RECORDS SUMMARY | 2025-10-02 09:20 | XMS_ITS | Encounter Summary ---
Author Organization [employer] Address 75 [facility] 7t [place] [address] Care Team Providers Care Glove Examiner Name Role Phone Alvina Mccartney MD Primary Care Provider [phone] Riky Tanner Unavailable Mariella Mcdonnell Unavailable Jina Vences MD Unavailable Shadia Morocho Unavailable Kendall Bates MD Unavailable Sara Pritchett Unavailable Alfreda Mendez MD Unavailable [phone] Tisha Scanlon NP Unavailable Reason for Visit * Reason Comments Med Refill Encounter Details Date Type Department Care Team (Late st Contact Info) Description 01/18/2025 Refill [facility] MEDICINE 230 [place], [place] [phone] Alvina Mccartney MD [address] [place], [place] [phone] Mild intermittent asthma without complication Social History [...] Office Visit [facility] OPTOMETRY [address] [place] [address] Homero, Marli, OD 230 [place] [address] documented as of this encounter Visit Diagnoses Diagnosis Mild intermittent asthma without complication documented in this encounter Additional Health Concerns Assessment Noted Time PHQ-9 Depression Total Score: 17 025 9:49 AM EST documented as of this encounter Care Teams Glove Examiner Relationship Specialty Start Date End Date Alvina Mccartney MD [address] [place] [address] PCP - General Family Medicine 11/01/18 Riky Tanner [address]rd [place] [address] Cardiology 10/03/24 Mariella Mcdonnell [address] [address] Sleep Medicine 10/11/24 Jina Vences MD [address] [place] [address] Endocrinology 11/05/24 Shadia Morocho PA [address] [place] [address] Orthopaedic Surgery 11/07/24 Kendall Bates MD [address] [place] [address] General Surgery 11/28/24 Sara Pritchett [address] [place] [address] Pain Medicine 01/16/25 Alfreda Mendez MD [address] [place] [address] Gastroenterology 05/03/25 Tisha Scanlon NP [address] [place] [address] Urology 09/05/25 Carina Baird TRANSCRIPTION SPECIALIST Neurology 09/18/25 documented as of this encounter
--- OUTSIDE RECORDS SUMMARY | 2025-10-02 09:20 | XMS_ITS | Encounter Summary ---
Author Organization [employer] Address 75 [facility] 7t [place] [address] Care Team Providers Care Tile Picker Name Role Phone Alvina Mccartney MD Primary Care Provider [phone]- [phone] Riky Tanner Unavailable Mariella Mcdonnell Unavailable Jina Vences MD Unavailable Shadia Morocho Unavailable Kendall Bates MD Unavailable Sara Pritchett Unavailable Alfreda Mendez MD Unavailable [phone] Tisha Scanlon NP Unavailable Reason for Visit * Reason Comments Med Refill Encounter Details Date Type Department Care Team (Late st Contact Info) Description 06/05/2024 Refill [facility] MEDICINE 230 [place], [place] [phone] Alvina Mccartney MD 230 [place], [place] [phone] Pain Social History Tobacco Use Types Packs/Day [...] Visit [facility] OPTOMETRY [address] [place] [address] Homero, Marli, OD 230 [place] [address] documented as of this encounter Visit Diagnoses Diagnosis Pain Generalized pain documented in this encounter Additional Health Concerns Assessment Noted Time PHQ-9 Depression Total Score: 8 07/26/20 23 10:55 AM EDT documented as of this encounter Care Teams Tile Picker Relationship Specialty Start Date End Date Alvina Mccartney MD 230 [place] [address] PCP - General Family Medicine 11/01/18 Riky Tanner [address] 3rd [place] [address] Cardiology 10/03/24 Mariella Mcdonnell [address] [address] Sleep Medicine 10/11/24 Jina Vences MD [address] [place] [address] Endocrinology 11/05/24 Shadia Morocho PA [address] [place] [address] Orthopaedic Surgery 11/07/24 Kendall Bates MD [address] 3rd [place] [address] General Surgery 11/28/24 Sara Pritchett [address] [place] [address] Pain Medicine 01/16/25 Alfreda Mendez MD [address] 3rd [place] [address] Gastroenterology 05/03/25 Tisha Scanlon NP [address] [place] [address] Urology 09/05/25 Carina Baird CNP Neurology 09/18/25 documented as of this encounter
--- OUTSIDE RECORDS SUMMARY | 2025-10-02 09:21 | XMS_ITS | Encounter Summary ---
Author Organization [employer] Address 75 [facility] 7t [place] [address] Care Team Providers Care Computer Numerical Control Machinist Name Role Phone Alvina Mccartney MD Primary Care Provider [phone] Riky Tanner Unavailable Mariella Mcdonnell Unavailable Jina Vences MD Unavailable Shadia Morocho Unavailable Kendall Bates MD Unavailable [phone] Sara Pritchett Unavailable Alfreda Mendez MD Unavailable [phone] Tisha Scanlon NP Unavailable Encounter Details Date Type Department Care Team (Late st Contact Info) Description 04/22/2023 Orders Only [facility] MEDICINE 230 [place], [place] [phone] Alvina Mccartney MD [address] [place], [place] [phone] Dizzy (Primary Dx) Social History Tobacco Use [...] Description 10/17/2025 10:00 AM EST Office Visit [facility] OPTOMETRY [address] [place] [address] HomeroBriann, OD [address] [place] [address] documented as of this encounter Visit Diagnoses Diagnosis Dizzy- Primary Dizziness and giddiness documented in this encounter Care Teams Computer Numerical Control Machinist Relationship Specialty Start Date End Date Alvina Mccartney MD [address] [place] [address] PCP - General Family Medicine 11/01/18 Riky Tanner [address]rd [place] [address] Cardiology 10/03/24 Mariella Mcdonnell [address] [address] Sleep Medicine 10/11/24 Jina Vences MD [address] [place] [address] Endocrinology 11/05/24 Shadia Morocho PA [address] [place] [address] Orthopaedic Surgery 11/07/24 Kendall Bates MD [address] 3rd [place] [address] General Surgery 11/28/24 Sara Pritchett [address] [place] [address] Pain Medicine 01/16/25 Alfreda Mendez MD [address]rd [place] [address] Gastroenterology 05/03/25 Tisha Scanlon NP [address] [place] [address] Urology 09/05/25 Carina Baird [employer] Neurology 09/18/25 documented as of this encounter
--- OUTSIDE RECORDS SUMMARY | 2025-10-02 09:21 | XMS_ITS | Encounter Summary ---
Author Organization [employer] Address 75 [facility] 7t [place] [address] Care Team Providers Care Shoe Maker Name Role Phone Alvina Mccartney MD Primary Care Provider [phone] Riky Tanner Unavailable Mariella Mcdonnell Unavailable Jina Vences MD Unavailable Shadia Morocho Unavailable Kendall Bates MD Unavailable Sara Pritchett Unavailable Alfreda Mendez MD Unavailable [phone] Tisha Scanlon NP Unavailable Encounter Details Date Type Department Care Team (Late st Contact Info) Description 12/03/2022 Abstract [facility] MEDICINE 230 [place], [place] [phone] Alvina Mccartney MD [address] [place], [place] [phone] Social History Tobacco Use Types Packs/Day Years [...] Description 10/17/2025 10:00 AM EST Office Visit [facility] OPTOMETRY [address] [place] [address] HomeroMarli hernández, OD 230 [place] [address] documented as of this encounter Procedures Procedure [...] on filedocumented in this encounter Care Teams Shoe Maker Relationship Specialty Start Date End Date Alvina Mccartney MD 230 [place] [address] PCP - General Family Medicine 11/01/18 Riky Tanner 11 [facility] 3rd [place] [address] Cardiology 10/03/24 Mariella Mcdonnell [address] [address] Sleep Medicine 10/11/24 Jina Vences MD [address] [place] [address] Endocrinology 11/05/24 Shadai Morocho PA [address] [place] [address] Orthopaedic Surgery 11/07/24 Kendall Bates MD [address] 3rd Floor [place] [address] General Surgery 11/28/24 Sara Pritchett [address] [place] [address] Pain Medicine 01/16/25 Alfreda Mendez MD [address] 3rd Floor [place] [address] Gastroenterology 05/03/25 Tisha Scanlon NP [address] [place] [address] Urology 09/05/25 Carina Baird MANUFACTURED BUILDINGS SUPERVISOR Neurology 09/18/25 documented as of this encounter
--- OUTSIDE RECORDS SUMMARY | 2025-10-02 09:21 | XMS_ITS | Encounter Summary ---
Author Organization [employer] [facility] Address 75 [facility] 7t [place] [address] Care Team Providers Care Mergers And Acquisitions Associate Name Role Phone Alvina Mccartney MD Primary Care Provider [phone]- [phone] Riky Tanner Unavailable Mariella Mcdonnell Unavailable Jina Vences MD Unavailable Shadia Morocho Unavailable Kendall Bates MD Unavailable Sara Pritchett Unavailable Alfreda Mendez MD Unavailable [phone] Tisha Scanlon NP Unavailable Encounter Details Date Type Department Care Team (Late st Contact Info) Description 10/16/2022 Orders Only [facility] MEDICINE 230 [place], [place] [phone] Anel Espinoza, RN Social History Tobacco Use [...] Description 10/17/2025 10:00 AM EST Office Visit [facility] OPTOMETRY [address] [place], [place] [phone] Marli Valentin, OD 230 [place] [address] documented as of this encounter Visit Diagnoses Not on filedocumented in this encounter Care Teams Mergers And Acquisitions Associate Relationship Specialty Start Date End Date Alvina Mccartney MD 230 [place] [address] PCP - General Family Medicine 11/01/18 Riky Tanner [address] [place] [address] Cardiology 10/03/24 Mariella Mcdonnell [address] [address] Sleep Medicine 10/11/24 J[place] [address] Endocrinology 11/05/24 Shadia Morocho PA [address] [place] [address] Orthopaedic Surgery 11/07/24 Kendall Bates MD [address] [place] [address] General Surgery 11/28/24 Sara Pritchett [address] [place] [address] Pain Medicine 01/16/25 Alfreda Mendez MD [address] [place] [address] Gastroenterology 05/03/25 Tisha Scanlon NP [address] [place] [address] Urology 09/05/25 Carina Baird CNP Neurology 09/18/25 documented as of this encounter
== END 2025-10-02 09:37 | disposition home or self-care (01) ==
LOC: HO.ENCR 08:58
PROVIDERS: PCP Family Medicine; Visit Provider Student in an Organized Health Care Education/Training Program
DX: E27.8 Other specified disorders of adrenal gland (principal)
CPT/HCPCS: 99214; G2211

== ENCOUNTER → 2025-10-02 08:57 | Outpatient (BNVA) | payer OTHER, SELFPAY | PROVIDERS: PCP Family Medicine; Visit Provider Student in an Organized Health Care Education/Training Program | DX: D35.02 Benign neoplasm of left adrenal gland (principal) | CPT/HCPCS: 99212 ==